=== PATIENT | male | born 1945 | race Caucasian/White ===

== ENCOUNTER 2016-07-05 21:32 | Observation (INO) | payer MEDICARE, OTHER ==
--- NOTE | 2016-07-06 01:21 | C.PDOC ---
History Of Present Illness Patient presents to the emergency room for ETOH intoxication. Patient is well known to the ED with multiple prior visits for the ETOH intoxication. Patient denies any physical complaints. Time Seen by Provider: 07/06/16 01:18 Chief Complaint (Nursing): Substance Abuse History Per: Patient History/Exam Limitations: no limitations Onset/Duration Of Symptoms: Hrs Current Symptoms Are (Timing): Still Present Suicide/Self Injury Attempted (Context): None Modifying Factor(s): Alcohol Severity: None Associated Symptoms: denies: Suicidal Thoughts, Suicidal Plan Involuntary Hold By: None Recent travel outside of the [place]: No Past Medical History Reviewed: Historical Data, Nursing Documentation, Vital Signs Vital Signs: Last Vital Signs Temp 97.9 F 07/06/16 00:37 Pulse 80 07/06/16 00:37 Resp 16 07/06/16 00:37 BP 124/86 07/06/16 00:37 Pulse Ox 99 07/06/16 04:04 - Medical History PMH: Anxiety, Asthma, Back Problems, Bipolar Disorder, Depression, Gastritis, HTN, Schizophrenia, Chronic Pain (Back Pain) Surgical History: Hernia Repair, Tonsillectomy - [facility] Procedures DETOXIFICATION SERVICES FOR SUBSTANCE ABUSE TREATMENT (12/26/15) Family History: States: Unknown Family Hx - Social History Hx Tobacco Use: No Hx Alcohol Use: Yes Hx Substance Use: No - Immunization History Hx Tetanus Toxoid Vaccination: No Hx Influenza Vaccination: No Hx Pneumococcal Vaccination: No Review Of Systems Constitutional: Positive for: Other (ETOH intoxication). Negative for: Fever, Chills Gastrointestinal: Negative for: Nausea, Vomiting, Diarrhea Physical Exam - Physical Exam Appears: Non-toxic, No Acute Distress, Other (ETOH on breath) Skin: Warm, Dry Extremity: Normal ROM, No Tenderness Neurological/Psych: Oriented x3 ED Course And Treatment O2 Sat by Pulse Oximetry: 99 Pulse Ox Interpretation: Normal Reevaluation Time: 05:36 Reassessment Condition: Improved ED OBSERVATION Discharge: Yes Date of observation admission: 07/06/16 Time of observation admission: 01:20 - Progress Note Progress Note: 07/06/16 01:20 vitals stable. no complaints 07/06/16 03:22 no complaints Disposition Counseled Patient/Family Regarding: Studies Performed, Diagnosis, Need For Followup - Disposition Disposition: HOME/ ROUTINE Disposition Time: 01:19 Condition: FAIR - Clinical Impression Clinical Impression: Alcohol abuse with intoxication - Scribe Statement The provider has reviewed the documentation as recorded by the Scribe Jim Duenas All medical record entries made by the Augustaibe were at my direction and personally dictated by me. I have reviewed the chart and agree that the record accurately reflects my personal performance of the history, physical exam, medical decision making, and the department course for this patient. I have also personally directed, reviewed, and agree with the discharge instructions and disposition. Decision To Admit - . Patient Diagnosis: Alcohol abuse with intoxication
[2016-07-06 06:31] VITALS: BP 118/78; PULSE 68; RESP 14; TEMP 97.4; O2SAT 96
== END 2016-07-06 05:37 | disposition home or self-care (01) ==
LOC: C.ER 21:32 → C.9OBSV 07-06 01:19
PROVIDERS: ADMIT Emergency Medicine; ATTEND Emergency Medicine
DX: F10.120 Alcohol abuse with intoxication, uncomplicated (principal); I10 Essential (primary) hypertension
CPT/HCPCS: 99283; G0378

== ENCOUNTER 2016-07-17 23:59 | Emergency (ER) | payer MEDICARE, OTHER ==
--- NOTE | 2016-07-18 05:19 | C.PDOC ---
History Of Present Illness 70 y/o here in ED for having too much to drink. pt denies any complaints, is asking for a sandwich. Time Seen by Provider: 07/18/16 04:49 Chief Complaint (Nursing): Substance Abuse Past Medical History Reviewed: Historical Data, Nursing Documentation, Vital Signs Vital Signs: Last Vital Signs Temp 97.3 F L 07/18/16 01:18 Pulse 81 07/18/16 01:18 Resp 20 07/18/16 01:18 BP 159/70 H 07/18/16 01:18 Pulse Ox 95 07/18/16 05:19 - Medical History PMH: Anxiety, Asthma, Back Problems, Bipolar Disorder, Depression, Gastritis, HTN, Schizophrenia, Chronic Pain (Back Pain) Other PMH: etoh abuse Surgical History: Hernia Repair, T[facility]illectomy - [facility] Procedures DETOXIFICATION SERVICES FOR SUBSTANCE ABUSE TREATMENT (12/26/15) Family History: States: Unknown Family Hx - Social History Hx Tobacco Use: No Hx Alcohol Use: Yes Hx Substance Use: No - Immunization History Hx Tetanus Toxoid Vaccination: No Hx Influenza Vaccination: No Hx Pneumococcal Vaccination: No Review Of Systems Constitutional: Negative for: Fever, Chills Cardiovascular: Negative for: Chest Pain, Palpitations Respiratory: Negative for: Cough Gastrointestinal: Negative for: Nausea, Vomiting, Abdominal Pain Musculoskeletal: Negative for: Back Pain Neurological: Negative for: Weakness, Numbness, Headache Physical Exam - Physical Exam Appears: Non-toxic, No Acute Distress, Unkempt Skin: Normal Color, Warm, Dry Head: Atraumatic, Normacephalic, No Tenderness, No Swelling, No Abrasion, No Laceration Nose: Normal Neck: Normal ROM Chest: Symmetrical, No Deformity, No Tenderness Cardiovascular: Rhythm Regular, No Murmur Respiratory: Normal Breath Sounds, No Rales, No Rhonchi, No Stridor Gastrointestinal/Abdominal: Normal Exam, Bowel Sounds, Soft, No Tenderness Neurological/Psych: Oriented x3, Normal Speech, Normal Cranial Nerves Gait: Unsteady (mildly unsteady. speech clear) ED Course And Treatment O2 Sat by Pulse Oximetry: 95 Progress Note: pt with dsteady gait, will d/c Reevaluation Time: 06:11 Disposition Counseled Patient/Family Regarding: Diagnosis, Need For Followup - Disposition Disposition: HOME/ ROUTINE Disposition Time: 06:12 Condition: IMPROVED Instructions: Alcohol Intoxication (ED) - Clinical Impression Clinical Impression: Alcohol abuse with uncomplicated intoxication
[2016-07-18 06:11] VITALS: BP 101/69; PULSE 66; RESP 16; TEMP 98.1
[2016-07-18 06:12] VITALS: O2SAT 95
== END 2016-07-18 06:28 | disposition home or self-care (01) ==
LOC: C.ER 23:59
DX: F10.120 Alcohol abuse with intoxication, uncomplicated (principal); Y90.9 Presence of alcohol in blood, level not specified

== ENCOUNTER 2016-07-20 15:40 | Observation (INO) | payer MEDICARE, OTHER ==
--- NOTE | 2016-07-20 16:12 | C.PDOC ---
History Of Present Illness <Ramón Edmonds - Last Filed: 07/21/16 01:03> <Jb Riddle - Last Filed: 07/21/16 05:51> Pt was BIBEMS due to public alcohol intoxication. He admits to drinking alcohol today. (Ramón Edmonds) History Per: Patient, EMS History/Exam Limitations: intoxication Onset/Duration Of Symptoms: Unknown (today) Current Symptoms Are (Timing): Still Present Suicide/Self Injury Attempted (Context): None Modifying Factor(s): Alcohol Severity: Moderate Associated Symptoms: denies: Suicidal Thoughts, Suicidal Plan Additional History Per: Prior Records <Ramón Edmonds - Last Filed: 07/21/16 01:03> <Jb Riddle - Last Filed: 07/21/16 05:51> Time Seen by Provider: 07/20/16 15:56 Chief Complaint (Nursing): Substance Abuse Past Medical History Reviewed: Historical Data, Nursing Documentation, Vital Signs - Medical History PMH: Anxiety, Asthma, Back Problems, Bipolar Disorder, Depression, Gastritis, HTN, Schizophrenia, Chronic Pain (Back Pain) Other PMH: Alcohol abuse Surgical History: Hernia Repair, Tonsillectomy Family History: States: Unknown Family Hx - Social History Hx Tobacco Use: No Hx Alcohol Use: Yes Hx Substance Use: No - Immunization History Hx Tetanus Toxoid Vaccination: No Hx Influenza Vaccination: No Hx Pneumococcal Vaccination: No <GreyRamón Huynh - Last Filed: 07/21/16 01:03> Vital Signs: Last Vital Signs Temp 98.2 F 07/20/16 20:00 Pulse 78 07/21/16 03:49 Resp 16 07/21/16 03:49 BP 129/76 07/21/16 03:49 Pulse Ox 98 07/21/16 03:49 - [facility] Procedures DETOXIFICATION SERVICES FOR SUBSTANCE ABUSE TREATMENT (12/26/15) Review Of Systems Review Of Systems: ROS cannot be obtained secondary to pt's inabilty to answer questions. <Ramón Edmonds - Last Filed: 07/21/16 01:03> Physical Exam - Physical Exam Appears: Non-toxic, No Acute Distress, Unkempt, Other (AOB) Skin: Normal Color, Warm, Dry, No Rash Head: Atraumatic, Normacephalic Eye(s): bilateral: PERRL, EOMI Neck: Normal ROM, No Midline Cervical Tenderness, No Step Off Deformity, Supple Chest: Symmetrical Cardiovascular: Rhythm Regular Respiratory: Normal Breath Sounds, No Accessory Muscle Use Gastrointestinal/Abdominal: Soft, No Tenderness Extremity: Normal ROM, No Deformity Neurological/Psych: Oriented x3, Normal Motor, Normal Sensation Gait: Unable To Assess <Ramón Edmonds - Last Filed: 07/21/16 01:03> ED Course And Treatment O2 Sat by Pulse Oximetry: 100 Pulse Ox Interpretation: Normal <Ramón Edmonds - Last Filed: 07/21/16 01:03> O2 Sat by Pulse Oximetry: 98 Pulse Ox Interpretation: Normal Reevaluation Time: 05:51 Reassessment Condition: Improved <Jb Riddle - Last Filed: 07/21/16 05:51> ED OBSERVATION Date of observation admission: 07/20/16 Time of observation admission: 16:12 <Ramón Edmonds - Last Filed: 07/21/16 01:03> Discharge: Yes <Jb Riddle - Last Filed: 07/21/16 05:51> - Observation admission statement Patient is being placed in observation because:: Alcohol intoxication (Ramón Edmonds) - Goals of Observation Goals of observation are:: Sobriety (Ramón Edmonds) Disposition - Disposition Disposition Time: 01:00 <Ramón Edmonds - Last Filed: 07/21/16 01:03> Counseled Patient/Family Regarding: Studies Performed, Diagnosis, Need For Followup - Disposition Disposition Time: 01:00 <Jb Riddle - Last Filed: 07/21/16 05:51> - Disposition Disposition: HOME/ ROUTINE Condition: FAIR - Clinical Impression Clinical Impression: Alcohol abuse Physician Patient Turnover Patient Signed Over To: Jb Riddle Handoff Comments: to reassess pt in the AM when sober. <Ramón Edmonds - Last Filed: 07/21/16 01:03>
[2016-07-20 20:51] VITALS: TEMP 98.2
[2016-07-20 22:22] VITALS: BP 129/76; PULSE 78
[2016-07-21 03:50] VITALS: RESP 16; O2SAT 98
== END 2016-07-21 05:51 | disposition home or self-care (01) ==
LOC: C.ER 15:40 → C.9OBSV 16:13
PROVIDERS: ADMIT Emergency Medicine; ATTEND Emergency Medicine
DX: F10.129 Alcohol abuse with intoxication, unspecified (principal); I10 Essential (primary) hypertension; F32.9 Major depressive disorder, single episode, unspecified; F20.9 Schizophrenia, unspecified; J45.909 Unspecified asthma, uncomplicated
CPT/HCPCS: 99284; G0378

== ENCOUNTER → 2016-07-23 13:53 | Emergency (ER) | payer MEDICARE, OTHER | END | disposition left against medical advice (07) | LOC: C.ER 13:53 | DX: F10.10 Alcohol abuse, uncomplicated (principal); Z02.9 Encounter for administrative examinations, unspecified ==

== ENCOUNTER 2016-07-23 19:19 | Observation (INO) | payer MEDICARE, OTHER ==
--- NOTE | 2016-07-23 20:47 | C.PDOC ---
History Of Present Illness 70 year old male presents to the ED intoxicated and requesting a place to sleep. Patient is well known to the ED for frequent visits for the same and has no physical complaints at this time. Time Seen by Provider: 07/23/16 20:46 History Per: Patient History/Exam Limitations: no limitations Onset/Duration Of Symptoms: Hrs Current Symptoms Are (Timing): Still Present Modifying Factor(s): Alcohol Recent travel outside of the [place]: No Past Medical History Reviewed: Historical Data, Nursing Documentation, Vital Signs Vital Signs: Last Vital Signs Temp 97.8 F 07/24/16 01:44 Pulse 89 07/24/16 03:47 Resp 16 07/24/16 03:47 BP 112/64 07/24/16 03:47 Pulse Ox 96 07/24/16 03:47 - Medical History PMH: Anxiety, Asthma, Back Problems, Bipolar Disorder, Depression, Gastritis, HTN, Schizophrenia, Chronic Pain (Back Pain) Surgical History: Hernia Repair, Tonsillectomy - [facility] Procedures DETOXIFICATION SERVICES FOR SUBSTANCE ABUSE TREATMENT (12/26/15) Family History: States: Unknown Family Hx - Social History Hx Tobacco Use: No Hx Alcohol Use: Yes Hx Substance Use: No - Immunization History Hx Tetanus Toxoid Vaccination: No Hx Influenza Vaccination: No Hx Pneumococcal Vaccination: No Review Of Systems Constitutional: Positive for: Other (+Intoxicated). Negative for: Fever, Chills Respiratory: Negative for: Cough Gastrointestinal: Negative for: Vomiting Physical Exam - Physical Exam Appears: Non-toxic, No Acute Distress, Other (+Intoxication +AOB) Skin: Warm, Dry Head: Atraumatic, Normacephalic Eye(s): bilateral: Normal Inspection Oral Mucosa: Moist Chest: Symmetrical Respiratory: No Accessory Muscle Use Extremity: Normal ROM Neurological/Psych: Oriented x3 ED Course And Treatment O2 Sat by Pulse Oximetry: 99 Pulse Ox Interpretation: Normal Reevaluation Time: 05:31 Reassessment Condition: Improved ED OBSERVATION Discharge: Yes Date of observation admission: 07/23/16 Time of observation admission: 20:59 - Observation admission statement Patient is being placed in observation because:: acute alcohol intoxication. - Goals of Observation Goals of observation are:: sobriety. - Progress Note Progress Note: 07/23/16 20:55 Vitals stable. patient resting 07/23/16 23:45 Patient resting, no complaints 07/24/16 02:10 vitals stable, patient continues to sleep 07/24/16 04:36 Patient resting comfortably 07/24/16 05:55 Patient is awake and sober and ready for discharge. Disposition Counseled Patient/Family Regarding: Studies Performed, Diagnosis, Need For Followup - Disposition Disposition: HOME/ ROUTINE Disposition Time: 20:47 Condition: FAIR - Clinical Impression Clinical Impression: Alcohol abuse with intoxication - Scribe Statement The provider has reviewed the documentation as recorded by the Scribe Myra Giron. Provider Attestation: All medical record entries made by the Scribe were at my direction and personally dictated by me. I have reviewed the chart and agree that the record accurately reflects my personal performance of the history, physical exam, medical decision making, and the department course for this patient. I have also personally directed, reviewed, and agree with the discharge instructions and disposition.
[2016-07-24 05:51] VITALS: BP 151/88; PULSE 92; RESP 18; TEMP 97.3; O2SAT 95
== END 2016-07-24 05:32 | disposition home or self-care (01) ==
LOC: C.ER 19:19 → C.9OBSV 21:13
PROVIDERS: ADMIT Emergency Medicine; ATTEND Emergency Medicine
DX: F10.120 Alcohol abuse with intoxication, uncomplicated (principal); F20.9 Schizophrenia, unspecified; I10 Essential (primary) hypertension; J45.909 Unspecified asthma, uncomplicated; F31.9 Bipolar disorder, unspecified
CPT/HCPCS: 99285; G0378

== ENCOUNTER 2016-07-25 11:29 | Emergency (ER) | payer MEDICARE, OTHER ==
[2016-07-25 11:44] VITALS: BMI 30.4
--- NOTE | 2016-07-25 12:27 | C.PDOC ---
History Of Present Illness 70 y/o male with hx of homelessness and etoh abuse brought to ED with cc of "i' m hungry". pt denies any physical complaints. denies drinking today, with no signs of withdrawal. pt eating sandwich and drinking juice on stretcher in no distress, speaks with clear speech. Time Seen by Provider: 07/25/16 11:50 Chief Complaint (Nursing): Substance Abuse Past Medical History Reviewed: Historical Data, Nursing Documentation, Vital Signs Vital Signs: Last Vital Signs Temp 97.9 F 07/25/16 13:24 Pulse 92 H 07/25/16 13:24 Resp 20 07/25/16 13:24 BP 138/84 07/25/16 13:24 Pulse Ox 96 07/25/16 13:24 - Medical History PMH: Anxiety, Asthma, Back Problems, Bipolar Disorder, Depression, Gastritis, HTN, Schizophrenia, Chronic Pain (Back Pain) Surgical History: Hernia Repair, Tonsillectomy - [facility] Procedures DETOXIFICATION SERVICES FOR SUBSTANCE ABUSE TREATMENT (12/26/15) Family History: States: Unknown Family Hx - Social History Hx Tobacco Use: No Hx Alcohol Use: Yes Hx Substance Use: No - Immunization History Hx Tetanus Toxoid Vaccination: No Hx Influenza Vaccination: No Hx Pneumococcal Vaccination: No Review Of Systems Constitutional: Negative for: Fever, Chills Cardiovascular: Negative for: Chest Pain, Palpitations Respiratory: Negative for: Cough, Shortness of Breath Gastrointestinal: Negative for: Nausea, Vomiting, Abdominal Pain Neurological: Negative for: Weakness, Numbness Physical Exam - Physical Exam Appears: Non-toxic, No Acute Distress, Unkempt Skin: Normal Color, Warm, Dry Head: Atraumatic, Normacephalic Neck: Normal ROM Chest: Symmetrical, No Deformity, No Tenderness Cardiovascular: Rhythm Regular, No Murmur Respiratory: Normal Breath Sounds, No Rales, No Rhonchi, No Wheezing Gastrointestinal/Abdominal: Bowel Sounds, Soft, No Tenderness Neurological/Psych: Oriented x3, Normal Speech (clear speech), Normal Cognition ED Course And Treatment O2 Sat by Pulse Oximetry: 98 Medical Decision Making Medical Decision Making: pt ambulates with steady gait and has clear speech. will discharge. Disposition Counseled Patient/Family Regarding: Diagnosis, Need For Followup - Disposition Referrals: [facility] [Outside] [facility] [Outside] Disposition: HOME/ ROUTINE Disposition Time: 13:42 Condition: STABLE Additional Instructions: Please follow up in medical clinic. Return to ER for any concerning symptoms. [facility] detox. Forms: General Discharge Instructions - Clinical Impression Clinical Impression: Homelessness
[2016-07-25 13:25] VITALS: BP 138/84; PULSE 92; RESP 20; TEMP 97.9
[2016-07-25 13:44] VITALS: O2SAT 98
== END 2016-07-25 14:02 | disposition home or self-care (01) ==
LOC: C.ER 11:29
DX: Z04.8 Encounter for examination and observation for other specified reasons (principal); Z59.0 Homelessness

== ENCOUNTER 2016-07-26 23:40 | Observation (INO) | payer MEDICARE, OTHER ==
[2016-07-26 23:41] VITALS: BMI 30.4
--- NOTE | 2016-07-26 23:45 | C.PDOC ---
History Of Present Illness 70 year old male presents to the ED via EMS for public intoxication. Patient has a history of alcohol abuse and is well known to the ED for frequent visits for the same. Time Seen by Provider: 07/26/16 23:43 History Per: Patient, EMS History/Exam Limitations: no limitations Onset/Duration Of Symptoms: Hrs Current Symptoms Are (Timing): Still Present Suicide/Self Injury Attempted (Context): None Modifying Factor(s): Alcohol Past Medical History Reviewed: Historical Data, Nursing Documentation, Vital Signs Vital Signs: Last Vital Signs Temp 98 F 07/27/16 05:08 Pulse 81 07/27/16 05:08 Resp 19 07/27/16 05:08 BP 134/81 07/27/16 05:08 Pulse Ox 94 L 07/27/16 05:08 - Medical History PMH: Anxiety, Asthma, Back Problems, Bipolar Disorder, Depression, Gastritis, HTN, Schizophrenia, Chronic Pain (Back Pain) Surgical History: Hernia Repair, [facility] [place] [facility] Procedures DETOXIFICATION SERVICES FOR SUBSTANCE ABUSE TREATMENT (12/26/15) Family History: States: Unknown Family Hx - Social History Hx Tobacco Use: No Hx Alcohol Use: Yes Hx Substance Use: No - Immunization History Hx Tetanus Toxoid Vaccination: No Hx Influenza Vaccination: No Hx Pneumococcal Vaccination: No Review Of Systems Constitutional: Positive for: Other (+Intoxication). Negative for: Fever, Chills Physical Exam - Physical Exam Appears: Non-toxic, No Acute Distress, Other (+AOB +Intoxicated) Skin: Warm, Dry Head: Atraumatic, Normacephalic Oral Mucosa: Moist Neck: Supple Chest: Symmetrical Respiratory: No Accessory Muscle Use Extremity: Normal ROM ED Course And Treatment O2 Sat by Pulse Oximetry: 98 (Room air) Pulse Ox Interpretation: Normal Reevaluation Time: 04:35 Reassessment Condition: Improved ED OBSERVATION Discharge: Yes Date of observation admission: 07/26/16 Time of observation admission: 23:44 - Observation admission statement Patient is being placed in observation because:: acute alcohol intoxication - Goals of Observation Goals of observation are:: sobriety - Progress Note Progress Note: 07/26/16 23:44 vitals stable, no complaints 07/27/16 01:50 vitals stable, no complaints 07/27/16 03:50 vitals stable Disposition Counseled Patient/Family Regarding: Studies Performed, Diagnosis, Need For Followup - Disposition Disposition: HOME/ ROUTINE Disposition Time: 01:00 Condition: FAIR - Clinical Impression Clinical Impression: Alcoholism /alcohol abuse - Scribe Statement The provider has reviewed the documentation as recorded by the Scribe Myra Giron. Provider Attestation: All medical record entries made by the Scribe were at my direction and personally dictated by me. I have reviewed the chart and agree that the record accurately reflects my personal performance of the history, physical exam, medical decision making, and the department course for this patient. I have also personally directed, reviewed, and agree with the discharge instructions and disposition.
[2016-07-27 05:08] VITALS: BP 134/81; PULSE 81; RESP 19; TEMP 98
[2016-07-27 05:41] VITALS: O2SAT 98
== END 2016-07-27 05:41 | disposition home or self-care (01) ==
LOC: C.ER 23:40 → C.9OBSV 23:46
PROVIDERS: ADMIT Emergency Medicine; ATTEND Emergency Medicine
DX: F10.229 Alcohol dependence with intoxication, unspecified (principal); F20.9 Schizophrenia, unspecified; F31.9 Bipolar disorder, unspecified; I10 Essential (primary) hypertension; J45.909 Unspecified asthma, uncomplicated; M54.9 Dorsalgia, unspecified; F41.9 Anxiety disorder, unspecified
CPT/HCPCS: 82948; 99284; G0378

== ENCOUNTER 2016-07-28 10:37 | Observation (INO) | payer MEDICARE, OTHER ==
[2016-07-28 10:38] VITALS: BMI 30.4
--- NOTE | 2016-07-28 11:32 | C.PDOC ---
History Of Present Illness Patient is a 70 y/o male that is brought to the ED by BLS for public intoxication. Patient is well known to ED staff for multiple prior visits for alcohol intoxication. Otherwise, pt denies any physical complaints at this time. Time Seen by Provider: 07/28/16 10:59 Chief Complaint (Nursing): Substance Abuse History Per: Patient History/Exam Limitations: intoxication Onset/Duration Of Symptoms: Gradual Current Symptoms Are (Timing): Still Present Suicide/Self Injury Attempted (Context): None Modifying Factor(s): Alcohol Severity: None Pain Scale Rating Of: 0 Involuntary Hold By: None Recent travel outside of the [place]: No Additional History Per: Prior Records Past Medical History Reviewed: Historical Data, Nursing Documentation, Vital Signs Vital Signs: Last Vital Signs Temp 98.3 F 07/28/16 14:46 Pulse 88 07/28/16 14:46 Resp 20 07/28/16 14:46 BP 155/105 H 07/28/16 14:46 Pulse Ox 100 07/28/16 14:46 - Medical History PMH: Anxiety, Asthma, Back Problems, Bipolar Disorder, Depression, Gastritis, HTN, Schizophrenia, Chronic Pain (Back Pain) Surgical History: Hernia Repair, Tonsillectomy - [facility] Procedures DETOXIFICATION SERVICES FOR SUBSTANCE ABUSE TREATMENT (12/26/15) Family History: States: No Known Family Hx - Social History Hx Tobacco Use: No Hx Alcohol Use: Yes Hx Substance Use: No - Immunization History Hx Tetanus Toxoid Vaccination: No Hx Influenza Vaccination: No Hx Pneumococcal Vaccination: No Review Of Systems Except As Marked, All Systems Reviewed And Found Negative. Cardiovascular: Negative for: Chest Pain Respiratory: Negative for: Shortness of Breath Gastrointestinal: Negative for: Nausea, Vomiting, Abdominal Pain Physical Exam - Physical Exam Additional Physical Exam Comments: Constitutional: No acute distress. EtOH on breath Head: Normocephalic. Atraumatic. Eyes: PERRL. ENT: Moist mucous membranes. Neck: Supple. Cardiovascular: Regular rate. Radial pulse 2+ bilaterally. Chest: No tenderness. Respiratory: Clear to auscultation bilaterally. GI: Soft. Nontender. Nondistended. Back: No CVA tenderness. Musculoskeletal: No tenderness or swelling of extremities. Skin: No rash. Neurologic: Alert, no focal deficit. ED Course And Treatment O2 Sat by Pulse Oximetry: 95 ED OBSERVATION Discharge: Yes Date of observation admission: 07/28/16 Time of observation admission: 11:07 - Observation admission statement Patient is being placed in observation because:: alcohol intoxication - Goals of Observation Goals of observation are:: sobriety - Progress Note Progress Note: 1300 Patient sleeping. 1456 Patient is awake, alert, steady gait. Disposition - Disposition Disposition: HOME/ ROUTINE Disposition Time: 14:56 Condition: STABLE - Clinical Impression Clinical Impression: Alcohol abuse with intoxication - Scribe Statement The provider has reviewed the documentation as recorded by the Omar Leiva Provider Attestation: All medical record entries made by the Omar were at my direction and personally dictated by me. I have reviewed the chart and agree that the record accurately reflects my personal performance of the history, physical exam, medical decision making, and the department course for this patient. I have also personally directed, reviewed, and agree with the discharge instructions and disposition.
[2016-07-28 14:46] VITALS: PULSE 88; RESP 20; TEMP 98.3
[2016-07-28 14:52] VITALS: BP 155/105
[2016-07-28 14:59] VITALS: O2SAT 95
== END 2016-07-28 14:59 | disposition home or self-care (01) ==
LOC: C.ER 10:37 → C.9OBSV 11:07
PROVIDERS: ADMIT Student in an Organized Health Care Education/Training Program; ATTEND Student in an Organized Health Care Education/Training Program
DX: F10.229 Alcohol dependence with intoxication, unspecified (principal); J45.909 Unspecified asthma, uncomplicated; I10 Essential (primary) hypertension; F31.9 Bipolar disorder, unspecified; F20.9 Schizophrenia, unspecified; F41.8 Other specified anxiety disorders
CPT/HCPCS: 82948; 99283; G0378

== ENCOUNTER 2016-07-29 16:56 | Observation (INO) | payer MEDICARE, OTHER ==
[2016-07-29 16:56] VITALS: BMI 30.4
--- NOTE | 2016-07-29 18:00 | C.PDOC ---
History Of Present Illness 70 year old male presents to the ED via EMS for public intoxication. Patient is well known to the ED for frequent visits for the same and has no physical complaints at this time. Time Seen by Provider: 07/29/16 17:21 Chief Complaint (Nursing): Substance Abuse History Per: Patient, EMS History/Exam Limitations: no limitations Onset/Duration Of Symptoms: Hrs Current Symptoms Are (Timing): Still Present Suicide/Self Injury Attempted (Context): None Modifying Factor(s): Alcohol Severity: Mild Past Medical History Reviewed: Historical Data, Nursing Documentation, Vital Signs Vital Signs: Last Vital Signs Temp 97.8 F 07/29/16 17:05 Pulse 98 H 07/29/16 17:05 Resp 20 07/29/16 17:05 BP 119/69 07/29/16 17:05 Pulse Ox 99 07/29/16 17:59 - Medical History PMH: Anxiety, Asthma, Back Problems, Bipolar Disorder, Depression, Gastritis, HTN, Schizophrenia, Chronic Pain (Back Pain) Surgical History: Hernia Repair, Tonsillectomy - [facility] Procedures DETOXIFICATION SERVICES FOR SUBSTANCE ABUSE TREATMENT (12/26/15) Family History: States: Unknown Family Hx - Social History Hx Tobacco Use: No Hx Alcohol Use: Yes Hx Substance Use: No - Immunization History Hx Tetanus Toxoid Vaccination: No Hx Influenza Vaccination: No Hx Pneumococcal Vaccination: No Review Of Systems Except As Marked, All Systems Reviewed And Found Negative. Constitutional: Positive for: Other (+Intoxication). Negative for: Fever, Chills Cardiovascular: Negative for: Chest Pain, Palpitations Respiratory: Negative for: Shortness of Breath Physical Exam - Physical Exam Appears: Non-toxic, No Acute Distress, Other (+AOB + Intoxicated) Skin: Normal Color, Warm, Dry Head: Atraumatic, Normacephalic Eye(s): bilateral: Normal Inspection Oral Mucosa: Moist Chest: Symmetrical Respiratory: No Accessory Muscle Use Extremity: Normal ROM Neurological/Psych: Oriented x3 ED Course And Treatment O2 Sat by Pulse Oximetry: 99 (Room air) Pulse Ox Interpretation: Normal Disposition - Disposition Disposition Time: 19:00 Condition: GOOD - Clinical Impression Clinical Impression: Alcohol abuse - Scribe Statement The provider has reviewed the documentation as recorded by the Scribe Myra Giron. Provider Attestation: All medical record entries made by the Scribe were at my direction and personally dictated by me. I have reviewed the chart and agree that the record accurately reflects my personal performance of the history, physical exam, medical decision making, and the department course for this patient. I have also personally directed, reviewed, and agree with the discharge instructions and disposition. Physician Patient Turnover Patient Signed Over To: Charlee Bullock Handoff Comments: dispo when sober
[2016-07-29 19:29] VITALS: RESP 18
[2016-07-30 06:11] VITALS: BP 136/81; PULSE 90; TEMP 98.4; O2SAT 97
== END 2016-07-30 06:03 | disposition home or self-care (01) ==
LOC: C.ER 16:56 → C.9OBSV 17:22
PROVIDERS: ADMIT Internal Medicine; ATTEND Internal Medicine
DX: F10.10 Alcohol abuse, uncomplicated (principal); F20.9 Schizophrenia, unspecified; I10 Essential (primary) hypertension
CPT/HCPCS: 82948; 99285; G0378

== ENCOUNTER 2016-07-31 12:45 | Observation (INO) | payer MEDICARE, OTHER ==
[2016-07-31 12:45] VITALS: BMI 30.4
[2016-07-31 12:54] VITALS: RESP 18
--- NOTE | 2016-07-31 13:47 | C.PDOC ---
History Of Present Illness 70 y/o male brought to ED by EMS for public intoxication. Patient is well known to ER staff with multiple prior visits for EtOH intoxication. Denies any complaints on arrival. Patient is requesting a sandwich. Denies SI/HI, trauma, or injury. Time Seen by Provider: 07/31/16 13:16 Chief Complaint (Nursing): Substance Abuse History Per: Patient History/Exam Limitations: no limitations Current Symptoms Are (Timing): Still Present Modifying Factor(s): Alcohol Associated Symptoms: denies: Agitation, Suicidal Thoughts, Suicidal Plan Recent travel outside of the [place]: No Past Medical History Reviewed: Historical Data, Nursing Documentation, Vital Signs Vital Signs: Last Vital Signs Temp 98.2 F 07/31/16 17:49 Pulse 86 07/31/16 17:49 Resp 18 07/31/16 17:49 BP 147/88 07/31/16 17:49 Pulse Ox 98 07/31/16 20:47 - Medical History PMH: Anxiety, Asthma, Back Problems, Bipolar Disorder, Depression, Gastritis, HTN, Schizophrenia, Chronic Pain (Back Pain) Surgical History: Hernia Repair, Tonsillectomy - [facility] Procedures DETOXIFICATION SERVICES FOR SUBSTANCE ABUSE TREATMENT (12/26/15) Family History: States: Unknown Family Hx - Social History Hx Tobacco Use: No Hx Alcohol Use: Yes Hx Substance Use: No - Immunization History Hx Tetanus Toxoid Vaccination: No Hx Influenza Vaccination: No Hx Pneumococcal Vaccination: No Review Of Systems Except As Marked, All Systems Reviewed And Found Negative. Constitutional: Negative for: Fever, Chills Cardiovascular: Negative for: Chest Pain Respiratory: Negative for: Shortness of Breath Gastrointestinal: Negative for: Vomiting, Abdominal Pain Skin: Negative for: Rash Physical Exam - Physical Exam Appears: Non-toxic, No Acute Distress Skin: Warm, Dry Head: Atraumatic, Normacephalic Chest: Symmetrical Cardiovascular: Rhythm Regular Respiratory: Normal Breath Sounds, No Rales, No Rhonchi, No Wheezing Gastrointestinal/Abdominal: Soft, No Tenderness Back: Normal Inspection Extremity: Normal ROM, Capillary Refill (< 2 sec. ) Extremity: Bilateral: Atraumatic Neurological/Psych: Oriented x3 ED Course And Treatment O2 Sat by Pulse Oximetry: 98 ED OBSERVATION Discharge: Yes Date of observation admission: 07/31/16 Time of observation admission: 13:52 - Observation admission statement Patient is being placed in observation because:: alcohol intoxication - Goals of Observation Goals of observation are:: sobriety - Progress Note Progress Note: 07/31/16 20:45 Patient no longer in ED. eloped. Disposition - Disposition Disposition: ELOPEMENT - ER ONLY Disposition Time: 20:48 Condition: IMPROVED - Clinical Impression Clinical Impression: Alcohol abuse with intoxication - Scribe Statement The provider has reviewed the documentation as recorded by the Omar Green Provider Scribe Attestation: All medical record entries made by the Omar were at my direction and personally dictated by me. I have reviewed the chart and agree that the record accurately reflects my personal performance of the history, physical exam, medical decision making, and the department course for this patient. I have also personally directed, reviewed, and agree with the discharge instructions and disposition.
[2016-07-31 17:50] VITALS: BP 147/88; PULSE 86; TEMP 98.2
[2016-07-31 20:47] VITALS: O2SAT 98
== END 2016-07-31 20:48 | disposition home or self-care (01) ==
LOC: C.ER 12:45 → C.9OBSV 13:52
PROVIDERS: ADMIT Emergency Medicine; ATTEND Emergency Medicine
DX: F10.129 Alcohol abuse with intoxication, unspecified (principal); I10 Essential (primary) hypertension; J45.909 Unspecified asthma, uncomplicated; G89.29 Other chronic pain; M54.9 Dorsalgia, unspecified; F20.9 Schizophrenia, unspecified; F31.9 Bipolar disorder, unspecified; F41.9 Anxiety disorder, unspecified; Z98.890 Other specified postprocedural states; Z90.89 Acquired absence of other organs

== ENCOUNTER 2016-08-01 16:06 | Observation (INO) | payer MEDICARE, OTHER ==
[2016-08-01 16:07] VITALS: BMI 30.4
--- NOTE | 2016-08-01 17:05 | C.PDOC ---
History Of Present Illness 70 yr old male presents to the ER intoxicated. Patient is very well known to the ED with multiple prior visit to the ED for same complaints. ROS is limited. Patient denies chest pain, suicidal or homicidal ideation. Time Seen by Provider: 08/01/16 16:12 Chief Complaint (Nursing): Substance Abuse History Per: EMS History/Exam Limitations: no limitations Modifying Factor(s): Alcohol Past Medical History Reviewed: Historical Data, Nursing Documentation, Vital Signs Vital Signs: Last Vital Signs Temp 97.6 F 08/01/16 22:27 Pulse 67 08/01/16 22:27 Resp 16 08/01/16 22:27 BP 134/86 08/01/16 22:27 Pulse Ox 96 08/01/16 22:27 - Medical History PMH: Anxiety, Asthma, Back Problems, Bipolar Disorder, Depression, Gastritis, HTN, Schizophrenia, Chronic Pain (Back Pain) Surgical History: Hernia Repair, Tonsillectomy - [facility] Procedures DETOXIFICATION SERVICES FOR SUBSTANCE ABUSE TREATMENT (12/26/15) Family History: States: No Known Family Hx - Social History Hx Tobacco Use: No Hx Alcohol Use: Yes Hx Substance Use: No - Immunization History Hx Tetanus Toxoid Vaccination: No Hx Influenza Vaccination: No Hx Pneumococcal Vaccination: No Review Of Systems Except As Marked, All Systems Reviewed And Found Negative. Cardiovascular: Negative for: Chest Pain Psych: Negative for: Suicidal ideation Physical Exam - Physical Exam Appears: Well, Non-toxic, No Acute Distress Skin: Warm, Dry, No Rash Head: Atraumatic, Normacephalic Chest: Symmetrical, No Tenderness Cardiovascular: Rhythm Regular, No Murmur Respiratory: Normal Breath Sounds, No Rales, No Rhonchi, No Wheezing Extremity: Normal ROM, No Swelling Neurological/Psych: Oriented x3, Normal Speech ED Course And Treatment O2 Sat by Pulse Oximetry: 97 ED OBSERVATION Date of observation admission: 08/01/16 Time of observation admission: 19:18 - Observation admission statement Patient is being placed in observation because:: ETOH Intoxication - Goals of Observation Goals of observation are:: Sobriety Disposition - Disposition Disposition: HOME/ ROUTINE Disposition Time: 05:00 Condition: GOOD - Clinical Impression Clinical Impression: Alcohol abuse with intoxication - PA / CONDUCTOR FREIGHT / Resident Statement MD/DO has reviewed & agrees with the documentation as recorded. - Scribe Statement The provider has reviewed the documentation as recorded by the Scribe Juani Gonzalez All medical record entries made by the Scribe were at my direction and personally dictated by me. I have reviewed the chart and agree that the record accurately reflects my personal performance of the history, physical exam, medical decision making, and the department course for this patient. I have also personally directed, reviewed, and agree with the discharge instructions and disposition.
[2016-08-01 22:29] VITALS: BP 134/86; PULSE 67; RESP 16; TEMP 97.6
[2016-08-03 13:47] VITALS: O2SAT 97
== END 2016-08-02 00:07 | disposition home or self-care (01) ==
LOC: C.ER 16:06 → C.9OBSV 18:00
PROVIDERS: ADMIT Emergency Medicine; ATTEND Emergency Medicine
DX: F10.129 Alcohol abuse with intoxication, unspecified (principal); J45.909 Unspecified asthma, uncomplicated; I10 Essential (primary) hypertension; F31.9 Bipolar disorder, unspecified; F20.9 Schizophrenia, unspecified; M54.9 Dorsalgia, unspecified; K29.70 Gastritis, unspecified, without bleeding; G89.29 Other chronic pain; F32.9 Major depressive disorder, single episode, unspecified; F41.9 Anxiety disorder, unspecified
CPT/HCPCS: 82948; 99285; G0378

== ENCOUNTER 2016-08-02 14:10 | Observation (INO) | payer MEDICARE, OTHER ==
[2016-08-02 14:24] VITALS: BMI 25.1
--- NOTE | 2016-08-02 16:16 | C.PDOC ---
History Of Present Illness 70 y/o male is brought into the ED by ambulance for evaluation after the patient was found walking down the street drinking two 40's. Patient admits to drinking alcohol today. Denies any suicidal ideation, homicidal ideation, pain or injury. Patient is well known to the [facility] ED for multiple visits for alcohol intoxication. Time Seen by Provider: 08/02/16 14:23 Chief Complaint (Nursing): Substance Abuse History Per: Patient History/Exam Limitations: no limitations Onset/Duration Of Symptoms: Hrs, Persistent Current Symptoms Are (Timing): Still Present Suicide/Self Injury Attempted (Context): None Modifying Factor(s): Alcohol Recent travel outside of the [place]: No Past Medical History Reviewed: Historical Data, Nursing Documentation, Vital Signs Vital Signs: Last Vital Signs Temp 98.8 F 08/02/16 18:41 Pulse 74 08/02/16 18:41 Resp 20 08/02/16 18:41 BP 134/87 08/02/16 18:41 Pulse Ox 99 08/02/16 18:41 - Medical History PMH: Anxiety, Asthma, Back Problems, Bipolar Disorder, Depression, Gastritis, HTN, Schizophrenia, Chronic Pain (Back Pain) Surgical History: Hernia Repair, Tonsillectomy - [facility] Procedures DETOXIFICATION SERVICES FOR SUBSTANCE ABUSE TREATMENT (12/26/15) Family History: States: Unknown Family Hx - Social History Hx Tobacco Use: No Hx Alcohol Use: Yes Hx Substance Use: No - Immunization History Hx Tetanus Toxoid Vaccination: No Hx Influenza Vaccination: No Hx Pneumococcal Vaccination: No Review Of Systems Except As Marked, All Systems Reviewed And Found Negative. Constitutional: Positive for: Other (alcohol intoxication) Musculoskeletal: Negative for: Other (pain or injury) Psych: Negative for: Suicidal ideation Physical Exam - Physical Exam Appears: Non-toxic, No Acute Distress, Other (disheveled; foul smelling) Skin: Normal Color, Warm, Dry Head: Atraumatic, Normacephalic Neck: Normal ROM Chest: Symmetrical Cardiovascular: Rhythm Regular Respiratory: Normal Breath Sounds, No Rales, No Rhonchi, No Wheezing Gastrointestinal/Abdominal: Normal Exam, Soft, No Tenderness Back: Normal Inspection, No CVA Tenderness Extremity: Normal ROM, No Swelling Extremity: Bilateral: Atraumatic Neurological/Psych: Oriented x3, Normal Speech, Normal Cognition ED Course And Treatment O2 Sat by Pulse Oximetry: 97 (ra) Pulse Ox Interpretation: Normal Reevaluation Time: 19:24 Reassessment Condition: Improved (STABLE GAIT) Medical Decision Making Medical Decision Making: Patient placed under ED observation pending sobriety. Disposition Doctor Will See Patient In The: Office Counseled Patient/Family Regarding: Studies Performed, Diagnosis - Disposition Disposition: HOME/ ROUTINE Disposition Time: 19:24 Condition: GOOD - Clinical Impression Clinical Impression: Alcohol abuse with uncomplicated intoxication - Scribe Statement The provider has reviewed the documentation as recorded by the Scribe (Katrina Moya) Provider Attestation: All medical record entries made by the Scribe were at my direction and personally dictated by me. I have reviewed the chart and agree that the record accurately reflects my personal performance of the history, physical exam, medical decision making, and the department course for this patient. I have also personally directed, reviewed, and agree with the discharge instructions and disposition.
[2016-08-02 20:30] VITALS: BP 150/90; PULSE 92; RESP 18; TEMP 98.4; O2SAT 95
== END 2016-08-02 19:23 | disposition home or self-care (01) ==
LOC: C.ER 14:10 → C.9OBSV 14:24
PROVIDERS: ADMIT Internal Medicine; ATTEND Internal Medicine
DX: F10.120 Alcohol abuse with intoxication, uncomplicated (principal); J45.909 Unspecified asthma, uncomplicated; I10 Essential (primary) hypertension; F20.9 Schizophrenia, unspecified; M54.9 Dorsalgia, unspecified; K29.70 Gastritis, unspecified, without bleeding; F32.9 Major depressive disorder, single episode, unspecified; F41.9 Anxiety disorder, unspecified
CPT/HCPCS: 82948; 99283; G0378

== ENCOUNTER 2016-08-03 17:32 | Observation (INO) | payer MEDICARE, OTHER ==
[2016-08-03 17:33] VITALS: BMI 25.1
--- NOTE | 2016-08-03 17:54 | C.PDOC ---
History Of Present Illness 70-year-old male, brought into the ED by ambulance with complaints of public intoxication. Patient admits to drinking alcohol today. Denies any suicidal ideation, homicidal ideation, pain or injury. Patient is well known to the [facility] ED for multiple visits for alcohol intoxication. Last visit yesterday. Time Seen by Provider: 08/03/16 17:49 Chief Complaint (Nursing): Substance Abuse Past Medical History Reviewed: Historical Data, Nursing Documentation, Vital Signs Vital Signs: Last Vital Signs Temp 98.2 F 08/03/16 21:44 Pulse 67 08/03/16 21:44 Resp 18 08/03/16 21:44 BP 156/80 H 08/03/16 21:44 Pulse Ox 99 08/03/16 21:44 - Medical History PMH: Anxiety, Asthma, Back Problems, Bipolar Disorder, Depression, Gastritis, HTN, Schizophrenia, Chronic Pain (Back Pain) Surgical History: Hernia Repair, Tonsillectomy - [facility] Procedures DETOXIFICATION SERVICES FOR SUBSTANCE ABUSE TREATMENT (12/26/15) Family History: States: Unknown Family Hx - Social History Hx Tobacco Use: No Hx Alcohol Use: Yes Hx Substance Use: No - Immunization History Hx Tetanus Toxoid Vaccination: No Hx Influenza Vaccination: No Hx Pneumococcal Vaccination: No Review Of Systems Cardiovascular: Negative for: Chest Pain Respiratory: Negative for: Shortness of Breath Gastrointestinal: Negative for: Vomiting Psych: Negative for: Depression, Suicidal ideation Physical Exam - Physical Exam Appears: Unkempt, Other (ETOH ON BREATH. SLURRED SPEECH SECONDARY TO INTOXICATION) Neck: Normal ROM Respiratory: No Accessory Muscle Use Extremity: Normal ROM ED Course And Treatment O2 Sat by Pulse Oximetry: 100 ED OBSERVATION Date of observation admission: 08/03/16 Time of observation admission: 17:52 - Observation admission statement Patient is being placed in observation because:: Lack of community services - Goals of Observation Goals of observation are:: Screen public from view of the issue - Progress Note Progress Note: 08/03/16 17:53 Pt remained stable in the ED Progressively more sober 08/03/16 23:29 Pt continued to sleep on and off, but failed attempt to ambulate will need few more hours Disposition - Disposition Disposition Time: 23:33 Condition: FAIR - Clinical Impression Clinical Impression: Drug dependence, Homelessness - Scribe Statement The provider has reviewed the documentation as recorded by the Omar Bañuelos All medical record entries made by the Scribe were at my direction and personally dictated by me. I have reviewed the chart and agree that the record accurately reflects my personal performance of the history, physical exam, medical decision making, and the department course for this patient. I have also personally directed, reviewed, and agree with the discharge instructions and disposition. Physician Patient Turnover Patient Signed Over To: Darren Mckeon Handoff Comments: Pending sobriety
[2016-08-04 06:26] VITALS: BP 139/76; PULSE 78; RESP 18; TEMP 98.4; O2SAT 100
== END 2016-08-04 06:27 | disposition home or self-care (01) ==
LOC: C.ER 17:32 → C.9OBSV 17:49
PROVIDERS: ADMIT Emergency Medicine; ATTEND Emergency Medicine
DX: F10.129 Alcohol abuse with intoxication, unspecified (principal); F41.9 Anxiety disorder, unspecified; J45.909 Unspecified asthma, uncomplicated; F31.9 Bipolar disorder, unspecified; I10 Essential (primary) hypertension; F20.9 Schizophrenia, unspecified; G89.29 Other chronic pain; M54.9 Dorsalgia, unspecified; Z59.0 Homelessness; F19.20 Other psychoactive substance dependence, uncomplicated; F19.10 Other psychoactive substance abuse, uncomplicated
CPT/HCPCS: 82948; 99285; G0378

== ENCOUNTER 2016-08-04 14:33 | Observation (INO) | payer MEDICARE, OTHER ==
[2016-08-04 14:33] VITALS: BMI 25.1
[2016-08-04 14:39] VITALS: RESP 18; O2SAT 96
--- NOTE | 2016-08-04 14:56 | C.PDOC ---
History Of Present Illness Patient is a 70 y/o male that is brought to the ED by BLS for public intoxication. Pt is well known to this ED for multiple prior visits for alcohol intoxication. Pt denies any complaints at this time. Time Seen by Provider: 08/04/16 14:48 Chief Complaint (Nursing): Substance Abuse History Per: Patient History/Exam Limitations: no limitations Suicide/Self Injury Attempted (Context): None Modifying Factor(s): Alcohol Recent travel outside of the [place]: No Additional History Per: Prior Records Past Medical History Reviewed: Historical Data, Nursing Documentation, Vital Signs Vital Signs: Last Vital Signs Temp 98.9 F 08/04/16 14:35 Pulse 110 H 08/04/16 14:35 Resp 18 08/04/16 14:35 BP 112/76 08/04/16 14:35 Pulse Ox 96 08/04/16 15:47 - Medical History PMH: Anxiety, Asthma, Back Problems, Bipolar Disorder, Depression, Gastritis, HTN, Schizophrenia, Chronic Pain (Back Pain) Surgical History: Hernia Repair, Tonsillectomy - [facility] Procedures DETOXIFICATION SERVICES FOR SUBSTANCE ABUSE TREATMENT (12/26/15) Family History: States: Unknown Family Hx - Social History Hx Tobacco Use: No Hx Alcohol Use: Yes Hx Substance Use: No Review Of Systems Except As Marked, All Systems Reviewed And Found Negative. Constitutional: Negative for: Fever, Chills Cardiovascular: Negative for: Chest Pain, Palpitations Respiratory: Negative for: Cough, Shortness of Breath Gastrointestinal: Negative for: Nausea, Vomiting, Abdominal Pain, Diarrhea Neurological: Negative for: Weakness, Numbness, Headache Physical Exam - Physical Exam Appears: Non-toxic, No Acute Distress, Other (disheveled; EtOH on breath) Skin: Normal Color, Warm, Dry Head: Atraumatic, Normacephalic Neck: Supple Chest: Symmetrical Cardiovascular: Rhythm Regular Respiratory: Normal Breath Sounds, No Rales, No Rhonchi Gastrointestinal/Abdominal: Soft, No Tenderness Neurological/Psych: Oriented x3 ED Course And Treatment O2 Sat by Pulse Oximetry: 96 (on RA) Pulse Ox Interpretation: Normal Progress Note: On reassessment, patient is resting comfortably, with no acute distress. ED OBSERVATION Date of observation admission: 08/04/16 Time of observation admission: 14:55 - Observation admission statement Patient is being placed in observation because:: Public Intoxication and lack of community services - Goals of Observation Goals of observation are:: Remove from public view, sober up - Progress Note Progress Note: 08/04/16 14:56 vs stable sleeping 08/05/16 00:45 Improved but still unsteady gait Disposition - Disposition Disposition: HOME/ ROUTINE Disposition Time: 00:46 Condition: GOOD - Clinical Impression Clinical Impression: Alcohol abuse with intoxication, Homelessness - Scribe Statement The provider has reviewed the documentation as recorded by the Omar Leiva Provider Attestation: All medical record entries made by the Omar were at my direction and personally dictated by me. I have reviewed the chart and agree that the record accurately reflects my personal performance of the history, physical exam, medical decision making, and the department course for this patient. I have also personally directed, reviewed, and agree with the discharge instructions and disposition. Physician Patient Turnover Patient Signed Over To: Jb Riddle Handoff Comments: D/C in am
[2016-08-05 03:11] VITALS: BP 98/64; PULSE 98; TEMP 98.6
== END 2016-08-05 04:54 | disposition home or self-care (01) ==
LOC: C.ER 14:33 → C.9OBSV 14:54
PROVIDERS: ADMIT Emergency Medicine; ATTEND Emergency Medicine
DX: F10.129 Alcohol abuse with intoxication, unspecified (principal); F31.9 Bipolar disorder, unspecified; Z59.0 Homelessness
CPT/HCPCS: G0378 ×2

== ENCOUNTER 2016-08-05 22:09 | Emergency (ER) | payer MEDICARE, OTHER ==
[2016-08-05 22:10] VITALS: BMI 25.1
[2016-08-05 23:19] VITALS: O2SAT 98
--- NOTE | 2016-08-06 00:33 | C.PDOC ---
History Of Present Illness Patient is brought to the ED by ambulance for acute alcohol intoxication. Patient is well known in the ED for intoxication. Patient admits to drinking alcohol prior to arrival. Patient denies chest pain, vomiting, shortness of breath, suicidal/homicidal ideation, or any other complaints at this time. Time Seen by Provider: 08/06/16 00:32 Chief Complaint (Nursing): Substance Abuse History Per: Patient History/Exam Limitations: intoxication Onset/Duration Of Symptoms: Other Current Symptoms Are (Timing): Still Present Suicide/Self Injury Attempted (Context): None Modifying Factor(s): Alcohol Severity: None Pain Scale Rating Of: 0 Associated Symptoms: Other Recent travel outside of the [place]: No Additional History Per: EMS, Prior Records Past Medical History Reviewed: Historical Data, Nursing Documentation, Vital Signs Vital Signs: Last Vital Signs Temp 97.4 F L 08/05/16 23:17 Pulse 80 08/05/16 23:17 Resp 18 08/05/16 23:17 BP 158/107 H 08/05/16 23:17 Pulse Ox 98 08/06/16 01:11 - Medical History PMH: Anxiety, Asthma, Back Problems, Bipolar Disorder, Depression, Gastritis, HTN, Schizophrenia, Chronic Pain (Back Pain) Surgical History: Hernia Repair, Tonsillectomy - [facility] Procedures DETOXIFICATION SERVICES FOR SUBSTANCE ABUSE TREATMENT (12/26/15) Family History: States: Unknown Family Hx - Social History Hx Tobacco Use: No Hx Alcohol Use: Yes Hx Substance Use: No - Immunization History Hx Tetanus Toxoid Vaccination: No Hx Influenza Vaccination: No Hx Pneumococcal Vaccination: No Review Of Systems Constitutional: Positive for: Other (intoxication) Cardiovascular: Negative for: Chest Pain Respiratory: Negative for: Shortness of Breath Gastrointestinal: Negative for: Vomiting Psych: Negative for: Suicidal ideation Physical Exam - Physical Exam Appears: Non-toxic, No Acute Distress, Other (intoxicated) Skin: Warm, Dry Head: Atraumatic, Normacephalic Neck: Normal ROM, Supple Chest: Symmetrical Cardiovascular: Rhythm Regular Respiratory: No Accessory Muscle Use Back: No CVA Tenderness Extremity: Bilateral: Atraumatic ED Course And Treatment O2 Sat by Pulse Oximetry: 98 (RA) Pulse Ox Interpretation: Normal Reevaluation Time: 04:50 Reassessment Condition: Improved ED OBSERVATION Discharge: Yes Date of observation admission: 08/06/16 Time of observation admission: 00:33 - Observation admission statement Patient is being placed in observation because:: acute alcohol intoxication - Goals of Observation Goals of observation are:: sobriety - Progress Note Progress Note: 08/06/16 00:34 vitals stable 08/06/16 02:34 no complaints 08/06/16 04:34 arousable Disposition Counseled Patient/Family Regarding: Studies Performed, Diagnosis, Need For Followup - Disposition Referrals: [facility] at [facility] [Outside] Disposition: HOME/ ROUTINE Disposition Time: 00:32 Condition: FAIR Instructions: Alcohol Intoxication (DC) - Clinical Impression Clinical Impression: Alcohol abuse with intoxication - Scribe Statement The provider has reviewed the documentation as recorded by the Scribe Jhoana Leiva Provider Attestation: All medical record entries made by the Scribe were at my direction and personally dictated by me. I have reviewed the chart and agree that the record accurately reflects my personal performance of the history, physical exam, medical decision making, and the department course for this patient. I have also personally directed, reviewed, and agree with the discharge instructions and disposition.
[2016-08-06 05:18] VITALS: BP 152/92; PULSE 91; RESP 16; TEMP 97.6
== END 2016-08-06 05:18 | disposition home or self-care (01) ==
LOC: C.ER 22:09
DX: F10.120 Alcohol abuse with intoxication, uncomplicated (principal); Y90.9 Presence of alcohol in blood, level not specified

== ENCOUNTER 2016-08-06 14:23 | Observation (INO) | payer MEDICARE, OTHER ==
[2016-08-06 14:23] VITALS: BMI 25.1
--- NOTE | 2016-08-06 14:35 | C.PDOC ---
History Of Present Illness 70 y/o male presents to the ED for public intoxication. Pt has no physical complaints at this time. Pt has numerous visits to ED in the past for same. Time Seen by Provider: 08/06/16 14:33 Chief Complaint (Nursing): Medical Clearance History Per: Patient History/Exam Limitations: no limitations Onset/Duration Of Symptoms: Hrs Current Symptoms Are (Timing): Still Present Severity: Mild Recent travel outside of the [place]: No Past Medical History Reviewed: Historical Data, Nursing Documentation, Vital Signs Vital Signs: Last Vital Signs Temp 97.9 F 08/06/16 22:57 Pulse 77 08/06/16 22:57 Resp 20 08/06/16 22:57 BP 127/69 08/06/16 22:57 Pulse Ox 98 08/06/16 22:57 - Medical History PMH: Anxiety, Asthma, Back Problems, Bipolar Disorder, Depression, Gastritis, HTN, Schizophrenia, Chronic Pain (Back Pain) Surgical History: Hernia Repair, Tonsillectomy - [facility] Procedures DETOXIFICATION SERVICES FOR SUBSTANCE ABUSE TREATMENT (12/26/15) Family History: States: Unknown Family Hx - Social History Hx Tobacco Use: No Hx Alcohol Use: Yes Hx Substance Use: No Review Of Systems Constitutional: Negative for: Fever Cardiovascular: Negative for: Chest Pain Respiratory: Negative for: Shortness of Breath Gastrointestinal: Negative for: Vomiting Neurological: Negative for: Headache Physical Exam - Physical Exam Appears: Non-toxic, Other (disheveled) Skin: Warm, Dry, No Rash Head: Atraumatic, Normacephalic Neck: Normal ROM, Supple Chest: Symmetrical Cardiovascular: Rhythm Regular Respiratory: Normal Breath Sounds, No Rales, No Rhonchi, No Wheezing Gastrointestinal/Abdominal: Soft, No Tenderness Extremity: Normal ROM Disoriented To: Time Gait: Unsteady ED OBSERVATION Date of observation admission: 08/06/16 Time of observation admission: 14:34 - Observation admission statement Patient is being placed in observation because:: Lack of community services, for acute intoxication - Goals of Observation Goals of observation are:: Remove from public site until sober - Progress Note Progress Note: 08/06/16 14:35 pt remained stable but still intoxicated 08/07/16 01:00 Still not ambulatory Disposition - Disposition Disposition: HOME/ ROUTINE Disposition Time: 01:00 Condition: FAIR - Clinical Impression Clinical Impression: Alcohol abuse with uncomplicated intoxication, Homelessness - Scribe Statement The provider has reviewed the documentation as recorded by the Scribe Isaac Sweeney Provider Attestation: All medical record entries made by the Scribe were at my direction and personally dictated by me. I have reviewed the chart and agree that the record accurately reflects my personal performance of the history, physical exam, medical decision making, and the department course for this patient. I have also personally directed, reviewed, and agree with the discharge instructions and disposition. Physician Patient Turnover Patient Signed Over To: Ramón Edmonds Handoff Comments: Pending sobriety
[2016-08-06 22:58] VITALS: RESP 20
[2016-08-07 03:19] VITALS: BP 120/60; PULSE 70; TEMP 98.2; O2SAT 96
== END 2016-08-07 04:03 | disposition home or self-care (01) ==
LOC: C.ER 14:23 → C.9OBSV 14:33
PROVIDERS: ADMIT Emergency Medicine; ATTEND Emergency Medicine
DX: F10.120 Alcohol abuse with intoxication, uncomplicated (principal); Z59.0 Homelessness; F31.9 Bipolar disorder, unspecified; I10 Essential (primary) hypertension; J45.909 Unspecified asthma, uncomplicated; Y90.9 Presence of alcohol in blood, level not specified
CPT/HCPCS: 82948; G0378

== ENCOUNTER 2016-08-07 19:00 | Observation (INO) | payer MEDICARE, OTHER ==
[2016-08-07 19:01] VITALS: BMI 25.1
[2016-08-07 19:50] VITALS: O2SAT 96
--- NOTE | 2016-08-07 20:26 | C.PDOC ---
History Of Present Illness Pt was BIBEMS due to public alcohol intoxication. Time Seen by Provider: 08/07/16 19:23 Chief Complaint (Nursing): Substance Abuse History Per: Patient, EMS History/Exam Limitations: intoxication Onset/Duration Of Symptoms: Unknown (today) Current Symptoms Are (Timing): Still Present Suicide/Self Injury Attempted (Context): None Modifying Factor(s): Alcohol Severity: Moderate Associated Symptoms: denies: Suicidal Thoughts, Suicidal Plan Additional History Per: Prior Records Past Medical History Reviewed: Historical Data, Nursing Documentation, Vital Signs Vital Signs: Last Vital Signs Temp 97.3 F L 08/08/16 03:21 Pulse 75 08/08/16 03:21 Resp 20 08/08/16 03:21 BP 141/70 08/08/16 03:21 Pulse Ox 96 08/07/16 20:26 - Medical History PMH: Anxiety, Asthma, Back Problems, Bipolar Disorder, Depression, Gastritis, HTN, Schizophrenia, Chronic Pain (Back Pain) Other PMH: Alcohol abuse Surgical History: Hernia Repair, Tonsillectomy - [facility] Procedures DETOXIFICATION SERVICES FOR SUBSTANCE ABUSE TREATMENT (12/26/15) Family History: States: Unknown Family Hx - Social History Hx Tobacco Use: No Hx Alcohol Use: Yes Hx Substance Use: No - Immunization History Hx Tetanus Toxoid Vaccination: No Hx Influenza Vaccination: No Hx Pneumococcal Vaccination: No Review Of Systems Review Of Systems: ROS cannot be obtained secondary to pt's inabilty to answer questions. Physical Exam - Physical Exam Appears: No Acute Distress, Unkempt, Other (AOB, intoxicated) Skin: Normal Color, Warm, Dry Head: Atraumatic Eye(s): bilateral: PERRL Neck: Normal ROM, No Midline Cervical Tenderness, No Step Off Deformity, Supple Cardiovascular: Rhythm Regular Respiratory: Normal Breath Sounds, No Accessory Muscle Use Gastrointestinal/Abdominal: Soft Extremity: Normal ROM, No Deformity Neurological/Psych: Slow To Respond With Command, Other (Moving all extretmies) Gait: Unable To Assess ED Course And Treatment O2 Sat by Pulse Oximetry: 96 Pulse Ox Interpretation: Normal Reassessment Condition: Improved ED OBSERVATION Discharge: Yes Date of observation admission: 08/07/16 Time of observation admission: 19:30 - Observation admission statement Patient is being placed in observation because:: Alcohol intoxication. - Goals of Observation Goals of observation are:: Sobriety. - Progress Note Progress Note: 08/08/16 05:53 Pt was checked every two hours and remained stable throughout ED stay. He is now AAOx3. Steady gait. Wants to leave now. Disposition Counseled Patient/Family Regarding: Diagnosis, Need For Followup - Disposition Disposition: HOME/ ROUTINE Disposition Time: 05:53 Condition: IMPROVED - Clinical Impression Clinical Impression: Alcohol abuse
[2016-08-08 05:57] VITALS: BP 130/70; PULSE 80; RESP 14; TEMP 97.2
== END 2016-08-08 05:54 | disposition home or self-care (01) ==
LOC: C.ER 19:00 → C.9OBSV 20:26
PROVIDERS: ADMIT Emergency Medicine; ATTEND Emergency Medicine
DX: F10.129 Alcohol abuse with intoxication, unspecified (principal); F31.9 Bipolar disorder, unspecified; I10 Essential (primary) hypertension; J45.909 Unspecified asthma, uncomplicated; F10.120 Alcohol abuse with intoxication, uncomplicated; Y90.9 Presence of alcohol in blood, level not specified
CPT/HCPCS: G0378 ×2

== ENCOUNTER 2016-08-08 22:55 | Observation (INO) | payer MEDICARE, OTHER ==
[2016-08-08 22:55] VITALS: BMI 25.1
--- NOTE | 2016-08-08 23:41 | C.PDOC ---
History Of Present Illness Patient presents to the emergency room with ETOH intoxication. Patient is well known to the ED with multiple visits for ETOH intoxication. Patient denies any physical complaints. Time Seen by Provider: 08/08/16 23:40 History Per: Patient History/Exam Limitations: no limitations Onset/Duration Of Symptoms: Hrs Current Symptoms Are (Timing): Still Present Suicide/Self Injury Attempted (Context): None Modifying Factor(s): Alcohol Associated Symptoms: denies: Suicidal Thoughts, Suicidal Plan Involuntary Hold By: None Recent travel outside of the [place]: No Past Medical History Reviewed: Historical Data, Nursing Documentation, Vital Signs Vital Signs: Last Vital Signs Temp 97.6 F 08/08/16 23:41 Pulse 72 08/08/16 23:41 Resp 20 08/08/16 23:41 BP 129/76 08/08/16 23:41 Pulse Ox 96 08/09/16 01:59 - Medical History PMH: Anxiety, Asthma, Back Problems, Bipolar Disorder, Depression, Gastritis, HTN, Schizophrenia, Chronic Pain (Back Pain) Surgical History: Hernia Repair, Tonsillectomy - [facility] Procedures DETOXIFICATION SERVICES FOR SUBSTANCE ABUSE TREATMENT (12/26/15) Family History: States: No Known Family Hx - Social History Hx Tobacco Use: No Hx Alcohol Use: Yes Hx Substance Use: No - Immunization History Hx Tetanus Toxoid Vaccination: No Hx Influenza Vaccination: No Hx Pneumococcal Vaccination: No Review Of Systems Constitutional: Positive for: Other (ETOH intoxication). Negative for: Fever, Chills Gastrointestinal: Negative for: Nausea, Vomiting, Diarrhea Physical Exam - Physical Exam Appears: Non-toxic, No Acute Distress, Other (ETOH on breath) Skin: Warm, Dry Extremity: Normal ROM, No Tenderness Neurological/Psych: Oriented x3, Normal Speech, Normal Cognition ED Course And Treatment O2 Sat by Pulse Oximetry: 96 Pulse Ox Interpretation: Normal Reevaluation Time: 05:52 Reassessment Condition: Improved ED OBSERVATION Discharge: Yes Disposition Counseled Patient/Family Regarding: Studies Performed, Diagnosis, Need For Followup - Disposition Disposition: HOME/ ROUTINE Disposition Time: 23:41 Condition: FAIR - Clinical Impression Clinical Impression: Alcohol abuse with intoxication - Scribe Statement The provider has reviewed the documentation as recorded by the Omar Duenas Provider Scribe Attestation: All medical record entries made by the Omar were at my direction and personally dictated by me. I have reviewed the chart and agree that the record accurately reflects my personal performance of the history, physical exam, medical decision making, and the department course for this patient. I have also personally directed, reviewed, and agree with the discharge instructions and disposition.
[2016-08-08 23:44] VITALS: O2SAT 96
[2016-08-09 05:58] VITALS: BP 132/74; PULSE 78; RESP 16; TEMP 97.8
== END 2016-08-09 05:53 | disposition home or self-care (01) ==
LOC: C.ER 22:55 → C.9OBSV 08-09 00:49
PROVIDERS: ADMIT Emergency Medicine; ATTEND Emergency Medicine
DX: F10.129 Alcohol abuse with intoxication, unspecified (principal); Y90.9 Presence of alcohol in blood, level not specified
CPT/HCPCS: 82948; 99283; G0378

== ENCOUNTER 2016-08-10 21:14 | Observation (INO) | payer MEDICARE, OTHER ==
[2016-08-10 21:14] VITALS: BMI 25.1
[2016-08-10 21:26] VITALS: TEMP 97.9
--- NOTE | 2016-08-10 21:47 | C.PDOC ---
History Of Present Illness The patient, a 70 y/o male, presents to the ED for evaluation of public alcohol intoxication for an unknown duration. Patient is familiar to the ED and has had many prior visits concerning alcohol intoxication. Patient admits to drinking earlier today. He denies suicidal/homicidal ideation and has no physical complaints at this time. Time Seen by Provider: 08/10/16 21:30 Chief Complaint (Nursing): Substance Abuse History Per: Patient History/Exam Limitations: intoxication Onset/Duration Of Symptoms: Unknown Current Symptoms Are (Timing): Still Present Suicide/Self Injury Attempted (Context): None Modifying Factor(s): Alcohol Associated Symptoms: denies: Suicidal Thoughts, Suicidal Plan Involuntary Hold By: None Recent travel outside of the [place]: No Additional History Per: Patient Past Medical History Reviewed: Historical Data, Nursing Documentation, Vital Signs Vital Signs: Last Vital Signs Temp 97.9 F 08/11/16 03:57 Pulse 69 08/11/16 03:57 Resp 16 08/11/16 03:57 BP 133/84 08/11/16 03:57 Pulse Ox 97 08/11/16 03:57 - Medical History PMH: Anxiety, Asthma, Back Problems, Bipolar Disorder, Depression, Gastritis, HTN, Schizophrenia, Chronic Pain (Back Pain) Surgical History: Hernia Repair, Tonsillectomy - [facility] Procedures DETOXIFICATION SERVICES FOR SUBSTANCE ABUSE TREATMENT (12/26/15) Family History: States: Unknown Family Hx - Social History Hx Tobacco Use: No Hx Alcohol Use: Yes Hx Substance Use: No - Immunization History Hx Tetanus Toxoid Vaccination: No Hx Influenza Vaccination: No Hx Pneumococcal Vaccination: No Review Of Systems Except As Marked, All Systems Reviewed And Found Negative. Constitutional: Positive for: Other (+alcohol intoxication ) Psych: Negative for: Suicidal ideation Physical Exam - Physical Exam Appears: No Acute Distress, Other (visibly intoxicated ) Skin: Normal Color, Warm, Dry Head: Atraumatic, Normacephalic Eye(s): bilateral: Normal Inspection Oral Mucosa: Moist, Other (alcohol on breath ) Neck: Normal ROM, Supple Chest: Symmetrical, No Deformity, No Tenderness Cardiovascular: Rhythm Regular Respiratory: Normal Breath Sounds Extremity: Normal ROM, Capillary Refill (less than 2 seconds ) Neurological/Psych: Other (arousable to touch and verbal stimuli ) Gait: Unsteady ED Course And Treatment O2 Sat by Pulse Oximetry: 94 Reevaluation Time: 05:36 Reassessment Condition: Improved ED OBSERVATION Discharge: Yes Date of observation admission: 08/10/16 Time of observation admission: 21:51 - Observation admission statement Patient is being placed in observation because:: alcohol intoxication - Goals of Observation Goals of observation are:: sobriety - Progress Note Progress Note: 08/10/16 22:11 patient is resting comfortably, vitals are stable. Disposition Doctor Will See Patient In The: Office Counseled Patient/Family Regarding: Studies Performed, Diagnosis - Disposition Disposition: HOME/ ROUTINE Disposition Time: 05:36 Condition: GOOD - Clinical Impression Clinical Impression: Alcohol abuse - Scribe Statement The provider has reviewed the documentation as recorded by the Scribe (Chrissy Leiva) Provider Attestation: All medical record entries made by the Scribe were at my direction and personally dictated by me. I have reviewed the chart and agree that the record accurately reflects my personal performance of the history, physical exam, medical decision making, and the department course for this patient. I have also personally directed, reviewed, and agree with the discharge instructions and disposition.
[2016-08-11 05:54] VITALS: BP 125/63; PULSE 82; RESP 17; O2SAT 100
== END 2016-08-11 05:36 | disposition home or self-care (01) ==
LOC: C.ER 21:14 → C.9OBSV 21:51
PROVIDERS: ADMIT Internal Medicine; ATTEND Internal Medicine
DX: F10.129 Alcohol abuse with intoxication, unspecified (principal); Y90.9 Presence of alcohol in blood, level not specified
CPT/HCPCS: 82948; G0378

== ENCOUNTER 2016-08-13 02:41 | Observation (INO) | payer MEDICARE, OTHER ==
[2016-08-13 02:41] VITALS: BMI 25.1
[2016-08-13 03:01] VITALS: BP 160/96; PULSE 93; RESP 18; TEMP 97.3; O2SAT 98
--- NOTE | 2016-08-13 03:21 | C.PDOC ---
History Of Present Illness Patient is brought to the ED for acute alcohol intoxication. Patient admits to drinking alcohol prior to arrival. He is well known in the ED and to the staff for intoxication. Patient denies chest pain, shortness of breath, nausea, vomiting, or any other complaint at this time. Time Seen by Provider: 08/13/16 03:21 Chief Complaint (Nursing): Substance Abuse History Per: Patient History/Exam Limitations: intoxication Onset/Duration Of Symptoms: Other Current Symptoms Are (Timing): Still Present Suicide/Self Injury Attempted (Context): None Modifying Factor(s): Alcohol Severity: None Pain Scale Rating Of: 0 Recent travel outside of the [place]: No Additional History Per: Prior Records Past Medical History Reviewed: Historical Data, Nursing Documentation, Vital Signs Vital Signs: Last Vital Signs Temp 97.3 F L 08/13/16 02:54 Pulse 93 H 08/13/16 02:54 Resp 18 08/13/16 02:54 BP 160/96 H 08/13/16 02:54 Pulse Ox 98 08/13/16 03:26 - Medical History PMH: Anxiety, Asthma, Back Problems, Bipolar Disorder, Depression, Gastritis, HTN, Schizophrenia, Chronic Pain (Back Pain) Surgical History: Hernia Repair, Tonsillectomy - [facility] Procedures DETOXIFICATION SERVICES FOR SUBSTANCE ABUSE TREATMENT (12/26/15) Family History: States: Unknown Family Hx - Social History Hx Tobacco Use: No Hx Alcohol Use: Yes Hx Substance Use: No - Immunization History Hx Tetanus Toxoid Vaccination: No Hx Influenza Vaccination: No Hx Pneumococcal Vaccination: No Review Of Systems Cardiovascular: Negative for: Chest Pain Respiratory: Negative for: Shortness of Breath Gastrointestinal: Negative for: Nausea, Vomiting Psych: Negative for: Suicidal ideation Physical Exam - Physical Exam Appears: Non-toxic, No Acute Distress, Other (intoxicated) Skin: Warm, Dry Head: Atraumatic, Normacephalic Neck: Supple Chest: Symmetrical Cardiovascular: Rhythm Regular Respiratory: No Rales, No Rhonchi, No Wheezing Back: No CVA Tenderness Extremity: Bilateral: Atraumatic ED Course And Treatment O2 Sat by Pulse Oximetry: 98 (room air) Pulse Ox Interpretation: Normal Disposition - Disposition Referrals: [facility] [Outside] Disposition Time: 03:21 Condition: FAIR - Clinical Impression Clinical Impression: Alcohol dependence, Alcohol abuse with intoxication - Scribe Statement The provider has reviewed the documentation as recorded by the Scribe Jhoana Leiva Provider Attestation: All medical record entries made by the Scribe were at my direction and personally dictated by me. I have reviewed the chart and agree that the record accurately reflects my personal performance of the history, physical exam, medical decision making, and the department course for this patient. I have also personally directed, reviewed, and agree with the discharge instructions and disposition.
--- NOTE | 2016-08-13 03:21 | C.PDOC ---
Time Seen by Provider: 08/13/16 03:21 Chief Complaint (Nursing): Substance Abuse Past Medical History Vital Signs: Last Vital Signs Temp 97.3 F L 08/13/16 02:54 Pulse 93 H 08/13/16 02:54 Resp 18 08/13/16 02:54 BP 160/96 H 08/13/16 02:54 Pulse Ox 98 08/13/16 02:54 - Medical History PMH: Anxiety, Asthma, Back Problems, Bipolar Disorder, Depression, Gastritis, HTN, Schizophrenia, Chronic Pain (Back Pain) Surgical History: Hernia Repair, Tonsillectomy - [facility] Procedures DETOXIFICATION SERVICES FOR SUBSTANCE ABUSE TREATMENT (12/26/15) Family History: States: Unknown Family Hx - Social History Hx Tobacco Use: No Hx Alcohol Use: Yes Hx Substance Use: No - Immunization History Hx Tetanus Toxoid Vaccination: No Hx Influenza Vaccination: No Hx Pneumococcal Vaccination: No ED Course And Treatment O2 Sat by Pulse Oximetry: 98 Disposition Counseled Patient/Family Regarding: Studies Performed, Diagnosis, Need For Followup - Disposition Referrals: [facility] [Outside] Disposition Time: 03:21 Condition: FAIR - Clinical Impression Clinical Impression: Alcohol dependence, Alcohol abuse with intoxication
== END 2016-08-13 06:00 | disposition home or self-care (01) ==
LOC: C.ER 02:41 → C.9OBSV 03:22
PROVIDERS: ADMIT Emergency Medicine; ATTEND Emergency Medicine
DX: F10.220 Alcohol dependence with intoxication, uncomplicated (principal); I10 Essential (primary) hypertension; Y90.9 Presence of alcohol in blood, level not specified
CPT/HCPCS: 82948; G0378

== ENCOUNTER 2016-08-13 20:54 | Observation (INO) | payer MEDICARE, OTHER ==
[2016-08-13 20:55] VITALS: BMI 25.1
[2016-08-13 21:06] VITALS: TEMP 98.4; O2SAT 97
--- NOTE | 2016-08-13 21:45 | C.PDOC ---
History Of Present Illness 70 y/o male presents for alcohol intoxication. Well known to ER staff with multiple similar prior visits. Denies any complaints on arrival. Requesting a place to stay. Time Seen by Provider: 08/13/16 21:44 Chief Complaint (Nursing): Substance Abuse History Per: Patient History/Exam Limitations: no limitations Onset/Duration Of Symptoms: Persistent Current Symptoms Are (Timing): Still Present Modifying Factor(s): Alcohol Associated Symptoms: denies: Suicidal Thoughts, Suicidal Plan Recent travel outside of the [place]: No Past Medical History Reviewed: Historical Data, Nursing Documentation, Vital Signs Vital Signs: Last Vital Signs Temp 98.4 F 08/13/16 21:05 Pulse 96 H 08/13/16 21:05 Resp 18 08/13/16 21:05 BP 129/80 08/13/16 21:05 Pulse Ox 97 08/14/16 04:11 - Medical History PMH: Anxiety, Asthma, Back Problems, Bipolar Disorder, Depression, Gastritis, HTN, Schizophrenia, Chronic Pain (Back Pain) Surgical History: Hernia Repair, T[facility]illectomy - [facility] Procedures DETOXIFICATION SERVICES FOR SUBSTANCE ABUSE TREATMENT (12/26/15) Family History: States: Unknown Family Hx - Social History Hx Tobacco Use: No Hx Alcohol Use: Yes Hx Substance Use: No - Immunization History Hx Tetanus Toxoid Vaccination: No Hx Influenza Vaccination: No Hx Pneumococcal Vaccination: No Review Of Systems Constitutional: Negative for: Fever, Chills Cardiovascular: Negative for: Chest Pain Respiratory: Negative for: Cough, Shortness of Breath Gastrointestinal: Negative for: Nausea, Vomiting Skin: Negative for: Rash Physical Exam - Physical Exam Appears: Non-toxic, No Acute Distress Skin: Warm, Dry Head: Atraumatic Chest: Symmetrical Cardiovascular: Rhythm Regular Respiratory: No Rales, No Rhonchi, No Wheezing Gastrointestinal/Abdominal: Soft, No Tenderness Back: Normal Inspection, No Vertebral Tenderness, No Paraspinal Tenderness Extremity: Normal ROM, Capillary Refill (< 2 sec. ) Neurological/Psych: Oriented x3 ED Course And Treatment O2 Sat by Pulse Oximetry: 97 (RA) Pulse Ox Interpretation: Normal Reevaluation Time: 06:08 Reassessment Condition: Improved ED OBSERVATION Discharge: Yes Date of observation admission: 08/13/16 Time of observation admission: 21:45 - Observation admission statement Patient is being placed in observation because:: Acute alcohol intoxication - Goals of Observation Goals of observation are:: sobriety - Progress Note Progress Note: 08/13/16 21:45 vitals stable, no distress 08/13/16 23:46 no complaints 08/14/16 01:45 vitals stable 08/14/16 03:46 ambulating to the bathroom 08/14/16 06:08 wants to go home Disposition Counseled Patient/Family Regarding: Studies Performed, Diagnosis - Disposition Disposition: HOME/ ROUTINE Disposition Time: 21:45 Condition: FAIR - Clinical Impression Clinical Impression: Alcoholism /alcohol abuse, Alcohol intoxication - Scribe Statement The provider has reviewed the documentation as recorded by the Omar Green Provider Scribe Attestation: All medical record entries made by the Omar were at my direction and personally dictated by me. I have reviewed the chart and agree that the record accurately reflects my personal performance of the history, physical exam, medical decision making, and the department course for this patient. I have also personally directed, reviewed, and agree with the discharge instructions and disposition.
[2016-08-14 06:32] VITALS: BP 150/88; PULSE 80; RESP 20
== END 2016-08-14 05:00 | disposition home or self-care (01) ==
LOC: C.ER 20:54 → C.9OBSV 21:45
PROVIDERS: ADMIT Emergency Medicine; ATTEND Emergency Medicine
DX: F10.229 Alcohol dependence with intoxication, unspecified (principal); I10 Essential (primary) hypertension; J45.909 Unspecified asthma, uncomplicated; Y90.9 Presence of alcohol in blood, level not specified
CPT/HCPCS: G0378 ×2

== ENCOUNTER 2016-08-19 00:49 | Emergency (ER) | payer MEDICARE, OTHER ==
[2016-08-19 00:49] VITALS: BMI 25.1
[2016-08-19 02:21] VITALS: RESP 18
--- NOTE | 2016-08-19 04:33 | C.PDOC ---
History Of Present Illness 70 y/o male presents for alcohol intoxication. Well known to ER staff with multiple similar prior visits. Denies any complaints on arrival. Requesting a place to stay. Time Seen by Provider: 08/19/16 04:32 Chief Complaint (Nursing): Substance Abuse History Per: Patient History/Exam Limitations: no limitations Onset/Duration Of Symptoms: Hrs Current Symptoms Are (Timing): Still Present Suicide/Self Injury Attempted (Context): None Modifying Factor(s): Alcohol Severity: Mild Recent travel outside of the [place]: No Additional History Per: Patient Past Medical History Reviewed: Historical Data, Nursing Documentation, Vital Signs Vital Signs: Last Vital Signs Temp 97.8 F 08/19/16 02:19 Pulse 86 08/19/16 02:19 Resp 18 08/19/16 02:19 BP 146/82 08/19/16 02:19 Pulse Ox 96 08/19/16 04:41 - Medical History PMH: Anxiety, Asthma, Back Problems, Bipolar Disorder, Depression, Gastritis, HTN, Schizophrenia, Chronic Pain (Back Pain) Surgical History: Hernia Repair, Tonsillectomy - [facility] Procedures DETOXIFICATION SERVICES FOR SUBSTANCE ABUSE TREATMENT (12/26/15) Family History: States: Unknown Family Hx - Social History Hx Tobacco Use: No Hx Alcohol Use: Yes Hx Substance Use: No - Immunization History Hx Tetanus Toxoid Vaccination: No Hx Influenza Vaccination: No Hx Pneumococcal Vaccination: No Review Of Systems Except As Marked, All Systems Reviewed And Found Negative. Constitutional: Positive for: Other (EToH intoxicated). Negative for: Fever, Chills Cardiovascular: Negative for: Chest Pain Respiratory: Negative for: Shortness of Breath Gastrointestinal: Negative for: Vomiting, Abdominal Pain, Diarrhea Skin: Negative for: Rash Psych: Negative for: Suicidal ideation Physical Exam - Physical Exam Appears: Non-toxic, No Acute Distress Skin: Warm, Dry Head: Atraumatic Cardiovascular: No Murmur Respiratory: No Rales, No Rhonchi, No Wheezing Gastrointestinal/Abdominal: Soft, No Tenderness Extremity: Normal ROM, No Pedal Edema Neurological/Psych: Oriented x3, No Other (No focal deficit) ED Course And Treatment O2 Sat by Pulse Oximetry: 96 (Room air) Pulse Ox Interpretation: Normal Reevaluation Time: 05:27 Reassessment Condition: Improved ED OBSERVATION Discharge: Yes Date of observation admission: 08/19/16 Time of observation admission: 04:41 - Observation admission statement Patient is being placed in observation because:: EToH intoxication - Goals of Observation Goals of observation are:: Sobriety Disposition Counseled Patient/Family Regarding: Studies Performed, Diagnosis, Need For Followup - Disposition Referrals: [facility] [Outside] Disposition: HOME/ ROUTINE Disposition Time: 04:32 Condition: FAIR Instructions: Alcohol Intoxication (DC) - Clinical Impression Clinical Impression: Homelessness, Alcohol abuse with intoxication - Scribe Statement The provider has reviewed the documentation as recorded by the Scribe Latosha hagen All medical record entries made by the Augustaibjackelyn were at my direction and personally dictated by me. I have reviewed the chart and agree that the record accurately reflects my personal performance of the history, physical exam, medical decision making, and the department course for this patient. I have also personally directed, reviewed, and agree with the discharge instructions and disposition.
[2016-08-19 05:55] VITALS: BP 134/80; PULSE 79; TEMP 98; O2SAT 97
== END 2016-08-19 05:58 | disposition home or self-care (01) ==
LOC: C.ER 00:49 → SUPCPDRO 00:49 → C.ER 05:58
DX: F10.129 Alcohol abuse with intoxication, unspecified (principal); Y90.9 Presence of alcohol in blood, level not specified; Z59.0 Homelessness

== ENCOUNTER 2016-08-22 14:17 | Emergency (ER) | payer MEDICARE, OTHER ==
--- NOTE | 2016-08-22 14:32 | C.PDOC ---
History Of Present Illness 70 y/o male brought to ED by EMS for public intoxication. Patient is well known to ER staff with multiple similar presentations. Denies any acute medical complaints at this time. Patient does not appear to be intoxicated on arrival, with steady gait, and normal speech. Time Seen by Provider: 08/22/16 14:25 Chief Complaint (Nursing): Substance Abuse History Per: Patient History/Exam Limitations: no limitations Onset/Duration Of Symptoms: Persistent Current Symptoms Are (Timing): Still Present Suicide/Self Injury Attempted (Context): None Modifying Factor(s): Alcohol Associated Symptoms: denies: Suicidal Thoughts, Suicidal Plan Recent travel outside of the [place]: No Past Medical History Reviewed: Historical Data, Nursing Documentation, Vital Signs Vital Signs: Last Vital Signs Temp 98.1 F 08/22/16 14:20 Pulse 82 08/22/16 14:20 Resp 18 08/22/16 14:20 BP 110/72 08/22/16 14:20 Pulse Ox 99 08/22/16 14:20 - Medical History PMH: Anxiety, Asthma, Back Problems, Bipolar Disorder, Depression, Gastritis, HTN, Schizophrenia, Chronic Pain (Back Pain) Surgical History: Hernia Repair, Tonsillectomy - [facility] Procedures DETOXIFICATION SERVICES FOR SUBSTANCE ABUSE TREATMENT (12/26/15) Family History: States: Unknown Family Hx - Social History Hx Tobacco Use: No Hx Alcohol Use: Yes Hx Substance Use: No - Immunization History Hx Tetanus Toxoid Vaccination: No Hx Influenza Vaccination: No Hx Pneumococcal Vaccination: No Review Of Systems Except As Marked, All Systems Reviewed And Found Negative. Constitutional: Negative for: Fever Cardiovascular: Negative for: Chest Pain Respiratory: Negative for: Cough, Shortness of Breath Gastrointestinal: Negative for: Vomiting, Abdominal Pain Skin: Negative for: Rash Physical Exam - Physical Exam Appears: Non-toxic, No Acute Distress Skin: Warm, Dry Head: Atraumatic, Normacephalic Chest: Symmetrical Cardiovascular: Rhythm Regular Respiratory: Normal Breath Sounds, No Rales, No Rhonchi, No Wheezing Extremity: Normal ROM Neurological/Psych: Oriented x3 ED Course And Treatment Reevaluation Time: 14:31 Reassessment Condition: Improved (stable gait, eloped from ED with cane and reddish bag of his belongings.) Medical Decision Making Medical Decision Making: typical malingering LOW susp of ETOH abuse eloped Disposition Doctor Will See Patient In The: Office Counseled Patient/Family Regarding: Studies Performed, Diagnosis - Disposition Disposition: HOME/ ROUTINE Disposition Time: 14:31 Condition: GOOD - Clinical Impression Clinical Impression: Homelessness, Malingering - Scribe Statement The provider has reviewed the documentation as recorded by the Omar Green Provider Scribe Attestation: All medical record entries made by the Omar were at my direction and personally dictated by me. I have reviewed the chart and agree that the record accurately reflects my personal performance of the history, physical exam, medical decision making, and the department course for this patient. I have also personally directed, reviewed, and agree with the discharge instructions and disposition.
[2016-08-22 14:34] VITALS: BP 110/72; PULSE 82; RESP 18; TEMP 98.1; O2SAT 99
== END 2016-08-22 14:36 | disposition home or self-care (01) ==
LOC: C.ER 14:17
DX: Z76.5 Malingerer [conscious simulation] (principal); Z59.0 Homelessness

== ENCOUNTER 2016-08-23 21:56 | Observation (INO) | payer MEDICARE, OTHER ==
[2016-08-23 22:16] VITALS: BMI 30.4
[2016-08-23 22:23] VITALS: PULSE 76
--- NOTE | 2016-08-23 22:54 | C.PDOC ---
History Of Present Illness 70 year old male brought to the ER by EMS for ETOH intoxication. Patient denies any physical complaints at this time. Time Seen by Provider: 08/23/16 21:58 Chief Complaint (Nursing): Substance Abuse History Per: EMS History/Exam Limitations: intoxication Onset/Duration Of Symptoms: Unknown Current Symptoms Are (Timing): Still Present Suicide/Self Injury Attempted (Context): None Modifying Factor(s): Alcohol Severity: Moderate Associated Symptoms: denies: Depression, Suicidal Thoughts, Suicidal Plan Involuntary Hold By: Emergency Physician Past Medical History Reviewed: Historical Data, Nursing Documentation, Vital Signs Vital Signs: Last Vital Signs Temp 98.2 F 08/24/16 06:38 Pulse 76 08/24/16 06:38 Resp 20 08/24/16 06:38 BP 132/72 08/24/16 06:38 Pulse Ox 97 08/24/16 06:38 - Medical History PMH: Anxiety, Asthma, Back Problems, Bipolar Disorder, Depression, Gastritis, HTN, Schizophrenia, Chronic Pain (Back Pain) Surgical History: Hernia Repair, Tonsillectomy - [facility] Procedures DETOXIFICATION SERVICES FOR SUBSTANCE ABUSE TREATMENT (12/26/15) Family History: States: No Known Family Hx - Social History Hx Tobacco Use: No Hx Alcohol Use: Yes Hx Substance Use: No - Immunization History Hx Tetanus Toxoid Vaccination: No Hx Influenza Vaccination: No Hx Pneumococcal Vaccination: No Review Of Systems Except As Marked, All Systems Reviewed And Found Negative. Constitutional: Negative for: Fever, Chills Cardiovascular: Negative for: Chest Pain, Palpitations Respiratory: Negative for: Shortness of Breath Gastrointestinal: Negative for: Nausea, Vomiting, Abdominal Pain, Diarrhea Neurological: Positive for: Other (ETOH intoxication) Physical Exam - Physical Exam Appears: Well, Non-toxic, Other (ETOH on breath) Skin: Normal Color, Warm, Dry Head: Atraumatic, Normacephalic Eye(s): bilateral: Normal Inspection Oral Mucosa: Moist Cardiovascular: Rhythm Regular, No Murmur Respiratory: Normal Breath Sounds, No Rales, No Rhonchi, No Wheezing Gastrointestinal/Abdominal: Normal Exam, Bowel Sounds, Soft, No Tenderness Extremity: Bilateral: Atraumatic Neurological/Psych: Other (awake, alert, intoxicated, moving all 4 extremities spontaneously) ED Course And Treatment O2 Sat by Pulse Oximetry: 98 (Room air) Pulse Ox Interpretation: Normal Progress Note: Accucheck ordered and reviewed. Patient placed in ED observation pending sobriety. 1:35am- Patient arousable to verbal stimuli, in no distress/pain. Pending sobriety. Reevaluation Time: 06:30 Reassessment Condition: Improved (Patient is currently AAOx3, ambulating normally in the ED. He is clinically sober at this time, will discharge.) ED OBSERVATION Date of observation admission: 08/23/16 Time of observation admission: 22:21 - Observation admission statement Patient is being placed in observation because:: Acute ETOH intoxication - Goals of Observation Goals of observation are:: Sobriety Disposition Counseled Patient/Family Regarding: Diagnosis, Need For Followup - Disposition Disposition: HOME/ ROUTINE Disposition Time: 06:30 Condition: STABLE - POA Present On Arrival: None - Clinical Impression Clinical Impression: Alcohol intoxication - Scribe Statement The provider has reviewed the documentation as recorded by the Scribe Chalino Huang All medical record entries made by the Augustaibe were at my direction and personally dictated by me. I have reviewed the chart and agree that the record accurately reflects my personal performance of the history, physical exam, medical decision making, and the department course for this patient. I have also personally directed, reviewed, and agree with the discharge instructions and disposition.
[2016-08-24 06:43] VITALS: BP 132/72; RESP 20; TEMP 98.2
[2016-08-24 23:59] VITALS: O2SAT 98
== END 2016-08-24 05:47 | disposition home or self-care (01) ==
LOC: C.ER 21:56 → C.9OBSV 22:43
PROVIDERS: ADMIT Emergency Medicine; ATTEND Emergency Medicine
DX: F10.120 Alcohol abuse with intoxication, uncomplicated (principal); Y90.9 Presence of alcohol in blood, level not specified; I10 Essential (primary) hypertension
CPT/HCPCS: 82948; 99284; G0378

== ENCOUNTER 2016-08-26 15:30 | Observation (INO) | payer MEDICARE, OTHER ==
[2016-08-26 15:30] VITALS: BMI 30.4
[2016-08-26 15:42] VITALS: O2SAT 98
--- NOTE | 2016-08-26 15:46 | C.PDOC ---
History Of Present Illness 70 y/o male presents to the ED with alcohol intoxication. Pt brought in by by EMS found down in a brock. Pt with frequent visits to the ED for the same. No complaints at this time. Time Seen by Provider: 08/26/16 15:43 Chief Complaint (Nursing): Substance Abuse History Per: Patient History/Exam Limitations: no limitations Suicide/Self Injury Attempted (Context): None Modifying Factor(s): Alcohol Severity: Mild Involuntary Hold By: None Recent travel outside of the [place]: No Past Medical History Reviewed: Historical Data, Nursing Documentation, Vital Signs Vital Signs: Last Vital Signs Temp 98.6 F 08/26/16 15:38 Pulse 75 08/26/16 15:38 Resp 19 08/26/16 15:38 BP 136/75 08/26/16 15:38 Pulse Ox 98 08/26/16 16:22 - Medical History PMH: Anxiety, Asthma, Back Problems, Bipolar Disorder, Depression, Gastritis, HTN, Schizophrenia, Chronic Pain (Back Pain) Surgical History: Hernia Repair, Tonsillectomy - [facility] Procedures DETOXIFICATION SERVICES FOR SUBSTANCE ABUSE TREATMENT (12/26/15) Family History: States: Unknown Family Hx - Social History Hx Tobacco Use: No Hx Alcohol Use: Yes Hx Substance Use: No - Immunization History Hx Tetanus Toxoid Vaccination: No Hx Influenza Vaccination: No Hx Pneumococcal Vaccination: No Review Of Systems Except As Marked, All Systems Reviewed And Found Negative. Physical Exam - Physical Exam Appears: Non-toxic, No Acute Distress, Unkempt, Other (intoxicated) Skin: Warm, Dry, No Rash Head: Atraumatic, Normacephalic Neck: Normal, Normal ROM, Supple Chest: Symmetrical Cardiovascular: Rhythm Regular, No Murmur Respiratory: Normal Breath Sounds, No Rales, No Rhonchi, No Wheezing Gastrointestinal/Abdominal: Soft, No Tenderness Extremity: Normal ROM Extremity: Bilateral: Atraumatic Neurological/Psych: Oriented x3 ED Course And Treatment O2 Sat by Pulse Oximetry: 98 (room air) Pulse Ox Interpretation: Normal Medical Decision Making Medical Decision Making: Pending patient sobriety. ED OBSERVATION Date of observation admission: 08/26/16 Time of observation admission: 15:45 - Observation admission statement Patient is being placed in observation because:: Alcohol intoxication - Goals of Observation Goals of observation are:: To sober up in the safe environment. Disposition - Disposition Disposition: HOSPITALIZED Disposition Time: 15:45 Condition: FAIR - Clinical Impression Clinical Impression: Alcohol intoxication - PA / HUB [employer]ER / Resident Statement MD/DO has reviewed & agrees with the documentation as recorded. - Scribe Statement The provider has reviewed the documentation as recorded by the Scribe Isaac Sweeney All medical record entries made by the Augustaibjackelyn were at my direction and personally dictated by me. I have reviewed the chart and agree that the record accurately reflects my personal performance of the history, physical exam, medical decision making, and the department course for this patient. I have also personally directed, reviewed, and agree with the discharge instructions and disposition. Physician Patient Turnover Patient Signed Over To: Jb Riddle Handoff Comments: waiting to sober up
[2016-08-26 20:42] VITALS: BP 134/89; PULSE 78; RESP 17; TEMP 98.4
== END 2016-08-26 21:16 | disposition left against medical advice (07) ==
LOC: C.ER 15:30 → C.9OBSV 15:44
PROVIDERS: ADMIT Student in an Organized Health Care Education/Training Program; ATTEND Student in an Organized Health Care Education/Training Program
DX: F10.120 Alcohol abuse with intoxication, uncomplicated (principal); Y90.9 Presence of alcohol in blood, level not specified
CPT/HCPCS: 82948; 99283; G0378

== ENCOUNTER 2016-08-28 16:05 | Observation (INO) | payer MEDICARE, OTHER ==
[2016-08-28 16:08] VITALS: BMI 30.4
--- NOTE | 2016-08-28 17:07 | C.PDOC ---
History Of Present Illness 70y/o male, brought to the emergency department with complaints of public intoxication. Patient has a Hx of several visits for same complaint in the past. no physical complaints at this time. Time Seen by Provider: 08/28/16 16:16 Chief Complaint (Nursing): Substance Abuse History Per: Patient History/Exam Limitations: no limitations Past Medical History Reviewed: Historical Data, Nursing Documentation, Vital Signs Vital Signs: Last Vital Signs Temp 98.4 F 08/28/16 22:49 Pulse 79 08/28/16 22:49 Resp 18 08/28/16 22:49 BP 133/77 08/28/16 22:49 Pulse Ox 97 08/29/16 00:06 - Medical History PMH: Anxiety, Asthma, Back Problems, Bipolar Disorder, Depression, Gastritis, HTN, Schizophrenia, Chronic Pain (Back Pain) Surgical History: Hernia Repair, Tonsillectomy - [facility] Procedures DETOXIFICATION SERVICES FOR SUBSTANCE ABUSE TREATMENT (12/26/15) Family History: States: Unknown Family Hx - Social History Hx Tobacco Use: No Hx Alcohol Use: Yes Hx Substance Use: No - Immunization History Hx Tetanus Toxoid Vaccination: No Hx Influenza Vaccination: No Hx Pneumococcal Vaccination: No Review Of Systems Except As Marked, All Systems Reviewed And Found Negative. Constitutional: Negative for: Fever Cardiovascular: Negative for: Chest Pain Gastrointestinal: Negative for: Vomiting Genitourinary: Negative for: Incontinence Neurological: Negative for: Weakness, Numbness Psych: Negative for: Suicidal ideation Physical Exam - Physical Exam Appears: No Acute Distress, Other (INTOXICATED. ETOH ON BREATH. AWAKE AND ALERT. COOPERATIVE. NO SIGNS OR SX OF ACUTE WITHDRAWAL.) Skin: Warm, Dry Head: Normacephalic Eye(s): bilateral: Normal Inspection Nose: Normal Oral Mucosa: Moist Lips: Normal Appearing Neck: Normal ROM Respiratory: No Accessory Muscle Use Extremity: Normal ROM ED Course And Treatment O2 Sat by Pulse Oximetry: 97 Reevaluation Time: 00:05 Reassessment Condition: Improved (patient continues to sleep quietly. He has been provided with a diet tray which he ate well.) Disposition - Disposition Disposition Time: 00:50 Condition: IMPROVED - Clinical Impression Clinical Impression: Alcohol intoxication - Scribe Statement The provider has reviewed the documentation as recorded by the Augustaibjackelyn Bañuelos All medical record entries made by the Scribe were at my direction and personally dictated by me. I have reviewed the chart and agree that the record accurately reflects my personal performance of the history, physical exam, medical decision making, and the department course for this patient. I have also personally directed, reviewed, and agree with the discharge instructions and disposition. Physician Patient Turnover Patient Signed Over To: Cleve Cho Handoff Comments: pending sobriety
[2016-08-28 20:11] VITALS: RESP 18
[2016-08-29 04:57] VITALS: BP 164/97; PULSE 80; TEMP 98.1; O2SAT 97
== END 2016-08-29 05:26 | disposition home or self-care (01) ==
LOC: C.ER 16:05 → C.9OBSV 16:46
PROVIDERS: ADMIT Emergency Medicine; ATTEND Emergency Medicine
DX: F10.229 Alcohol dependence with intoxication, unspecified (principal); F41.9 Anxiety disorder, unspecified; J45.909 Unspecified asthma, uncomplicated; I10 Essential (primary) hypertension; F20.9 Schizophrenia, unspecified
CPT/HCPCS: 99285; G0378

== ENCOUNTER 2016-08-30 19:08 | Observation (INO) | payer MEDICARE, OTHER ==
[2016-08-30 19:08] VITALS: BMI 30.4
--- NOTE | 2016-08-30 21:54 | C.PDOC ---
History Of Present Illness Patient presents to the ER with acute ETOH intoxication. Patient is well known to ER for ETOH intoxication. Has no physical complaints at this time. Time Seen by Provider: 08/30/16 21:52 Chief Complaint (Nursing): Substance Abuse History Per: Patient History/Exam Limitations: no limitations Onset/Duration Of Symptoms: Hrs Current Symptoms Are (Timing): Still Present Suicide/Self Injury Attempted (Context): None Modifying Factor(s): Alcohol Severity: None Pain Scale Rating Of: 0 Associated Symptoms: denies: Depression, Suicidal Thoughts, Suicidal Plan Recent travel outside of the [place]: No Past Medical History Reviewed: Historical Data, Nursing Documentation, Vital Signs Vital Signs: Last Vital Signs Temp 97.9 F 08/30/16 20:05 Pulse 80 08/30/16 20:05 Resp 16 08/30/16 20:05 BP 130/70 08/30/16 20:05 Pulse Ox 96 08/31/16 01:26 - Medical History PMH: Anxiety, Asthma, Back Problems, Bipolar Disorder, Depression, Gastritis, HTN, Schizophrenia, Chronic Pain (Back Pain) Surgical History: Hernia Repair, Tonsillectomy - [facility] Procedures DETOXIFICATION SERVICES FOR SUBSTANCE ABUSE TREATMENT (12/26/15) Family History: States: No Known Family Hx - Social History Hx Tobacco Use: No Hx Alcohol Use: Yes Hx Substance Use: No - Immunization History Hx Tetanus Toxoid Vaccination: No Hx Influenza Vaccination: No Hx Pneumococcal Vaccination: No Review Of Systems Constitutional: Negative for: Fever, Chills Gastrointestinal: Negative for: Nausea, Vomiting Neurological: Positive for: Other (ETOH intoxication) Physical Exam - Physical Exam Appears: Non-toxic, Other (ETOH on breath) Skin: Warm, Dry Oral Mucosa: Moist Chest: Symmetrical, No Tenderness Cardiovascular: Rhythm Regular, No Murmur Respiratory: No Rales, No Rhonchi, No Wheezing Gastrointestinal/Abdominal: Soft, No Tenderness Neurological/Psych: Oriented x3 ED Course And Treatment O2 Sat by Pulse Oximetry: 96 (Room air) Pulse Ox Interpretation: Normal Reevaluation Time: 02:08 Reassessment Condition: Improved ED OBSERVATION Discharge: Yes Date of observation admission: 08/30/16 Time of observation admission: 21:54 - Observation admission statement Patient is being placed in observation because:: acute alcohol intoxication - Goals of Observation Goals of observation are:: sobriety - Progress Note Progress Note: 08/30/16 21:54 vitals stable 08/30/16 23:54 no complaints 08/31/16 02:08 ambulating without difficulty Disposition Counseled Patient/Family Regarding: Studies Performed, Diagnosis, Need For Followup - Disposition Disposition: HOME/ ROUTINE Disposition Time: 21:53 Condition: FAIR - Clinical Impression Clinical Impression: Alcohol intoxication - Scribe Statement The provider has reviewed the documentation as recorded by the Scribjackelyn Huang All medical record entries made by the Augustaibjackelyn were at my direction and personally dictated by me. I have reviewed the chart and agree that the record accurately reflects my personal performance of the history, physical exam, medical decision making, and the department course for this patient. I have also personally directed, reviewed, and agree with the discharge instructions and disposition.
[2016-08-31 02:15] VITALS: BP 126/87; PULSE 88; RESP 20; TEMP 97.8; O2SAT 98
== END 2016-08-31 02:08 | disposition home or self-care (01) ==
LOC: C.ER 19:08 → C.9OBSV 21:54
PROVIDERS: ADMIT Emergency Medicine; ATTEND Emergency Medicine
DX: F10.229 Alcohol dependence with intoxication, unspecified (principal); J45.909 Unspecified asthma, uncomplicated; F41.8 Other specified anxiety disorders; F31.9 Bipolar disorder, unspecified; F20.89 Other schizophrenia
CPT/HCPCS: 82948; 99284; G0378

== ENCOUNTER 2016-09-01 17:37 | Observation (INO) | payer MEDICARE, OTHER ==
[2016-09-01 17:37] VITALS: BMI 30.4
[2016-09-01 17:55] VITALS: BP 147/93; PULSE 100; RESP 18; TEMP 97.9; O2SAT 99
--- NOTE | 2016-09-01 19:31 | C.PDOC ---
History Of Present Illness 70 y/o male presents to ED for public intoxication. Patient denies any injury, trauma, or pain. No other complaints at this time. Admits to EtOH use today. Time Seen by Provider: 09/01/16 17:38 Chief Complaint (Nursing): Substance Abuse History Per: Patient History/Exam Limitations: no limitations Onset/Duration Of Symptoms: Persistent Current Symptoms Are (Timing): Still Present Modifying Factor(s): Alcohol Associated Symptoms: denies: Suicidal Thoughts, Suicidal Plan Recent travel outside of the [place]: No Past Medical History Reviewed: Historical Data, Nursing Documentation, Vital Signs Vital Signs: Last Vital Signs Temp 97.9 F 09/01/16 17:55 Pulse 100 H 09/01/16 17:55 Resp 18 09/01/16 17:55 BP 147/93 H 09/01/16 17:55 Pulse Ox 99 09/01/16 19:54 - Medical History PMH: Anxiety, Asthma, Back Problems, Bipolar Disorder, Depression, Gastritis, HTN, Schizophrenia, Chronic Pain (Back Pain) Surgical History: Hernia Repair, Tonsillectomy - [facility] Procedures DETOXIFICATION SERVICES FOR SUBSTANCE ABUSE TREATMENT (12/26/15) Family History: States: Unknown Family Hx - Social History Hx Tobacco Use: No Hx Alcohol Use: Yes Hx Substance Use: No - Immunization History Hx Tetanus Toxoid Vaccination: No Hx Influenza Vaccination: No Hx Pneumococcal Vaccination: No Review Of Systems Except As Marked, All Systems Reviewed And Found Negative. Constitutional: Negative for: Fever, Chills Cardiovascular: Negative for: Chest Pain Respiratory: Negative for: Cough, Shortness of Breath, Wheezing Gastrointestinal: Negative for: Nausea, Vomiting Skin: Negative for: Rash Psych: Negative for: Withdrawal Physical Exam - Physical Exam Appears: Non-toxic, Unkempt, Other (dissheveled, incontinent of stool and urine) Skin: Warm, Dry Head: Atraumatic, Normacephalic Chest: Symmetrical Cardiovascular: Rhythm Regular Respiratory: No Rales, No Rhonchi, No Wheezing Gastrointestinal/Abdominal: Soft, No Tenderness Back: Normal Inspection Extremity: Normal ROM, Capillary Refill (< 2 sec. ) Neurological/Psych: Oriented x3, Normal Speech, Normal Cognition ED Course And Treatment O2 Sat by Pulse Oximetry: 99 (RA) Pulse Ox Interpretation: Normal Reevaluation Time: 22:29 Reassessment Condition: Improved (clinically sober) Medical Decision Making Medical Decision Making: persistent alcoholism/homeless/malingering. ED OBSERVATION Date of observation admission: 09/01/16 Time of observation admission: 18:18 - Observation admission statement Patient is being placed in observation because:: acute etoh intoxication - Goals of Observation Goals of observation are:: clinical sobriety Disposition Doctor Will See Patient In The: Office Counseled Patient/Family Regarding: Studies Performed, Diagnosis - Disposition Disposition: HOME/ ROUTINE Disposition Time: 22:30 Condition: GOOD - Clinical Impression Clinical Impression: Homelessness, Alcohol abuse, Malingering - Scribe Statement The provider has reviewed the documentation as recorded by the Omar Green Provider Scribe Attestation: All medical record entries made by the Omar were at my direction and personally dictated by me. I have reviewed the chart and agree that the record accurately reflects my personal performance of the history, physical exam, medical decision making, and the department course for this patient. I have also personally directed, reviewed, and agree with the discharge instructions and disposition.
== END 2016-09-01 22:29 | disposition home or self-care (01) ==
LOC: C.ER 17:37 → C.9OBSV 18:18
PROVIDERS: ADMIT Internal Medicine; ATTEND Internal Medicine
DX: F10.229 Alcohol dependence with intoxication, unspecified (principal); F41.8 Other specified anxiety disorders; F31.9 Bipolar disorder, unspecified; I10 Essential (primary) hypertension; F20.9 Schizophrenia, unspecified; M54.9 Dorsalgia, unspecified
CPT/HCPCS: 99284; G0378

== ENCOUNTER 2016-09-02 13:07 | Observation (INO) | payer MEDICARE, OTHER ==
[2016-09-02 13:08] VITALS: BMI 30.4
[2016-09-02 13:14] VITALS: BP 104/67; PULSE 104; RESP 20; TEMP 98.2; O2SAT 98
--- NOTE | 2016-09-02 14:19 | C.PDOC ---
History Of Present Illness 70-year-old homeless male with PMHx that includes EtOH Abuse, BIBA for evaluation of alcohol intoxication. Patient also states he is very itchy, and hungry. He has been seen in ED for similar complaints multiple times in the past. Time Seen by Provider: 09/02/16 13:44 Chief Complaint (Nursing): Medical Clearance History Per: Patient, EMS History/Exam Limitations: intoxication Onset/Duration Of Symptoms: Persistent Current Symptoms Are (Timing): Still Present Severity: Mild Past Medical History Reviewed: Historical Data, Nursing Documentation, Vital Signs Vital Signs: Last Vital Signs Temp 98.2 F 09/02/16 13:11 Pulse 104 H 09/02/16 13:11 Resp 20 09/02/16 13:11 BP 104/67 09/02/16 13:11 Pulse Ox 98 09/02/16 18:08 - Medical History PMH: Anxiety, Asthma, Back Problems, Bipolar Disorder, Depression, Gastritis, HTN, Schizophrenia, Chronic Pain (Back Pain) Surgical History: Hernia Repair, Tonsillectomy - [facility] Procedures DETOXIFICATION SERVICES FOR SUBSTANCE ABUSE TREATMENT (12/26/15) Family History: States: No Known Family Hx - Social History Hx Tobacco Use: No Hx Alcohol Use: Yes Hx Substance Use: No - Immunization History Hx Tetanus Toxoid Vaccination: No Hx Influenza Vaccination: No Hx Pneumococcal Vaccination: No Review Of Systems Except As Marked, All Systems Reviewed And Found Negative. Cardiovascular: Negative for: Chest Pain, Palpitations Respiratory: Negative for: Shortness of Breath Gastrointestinal: Negative for: Nausea, Vomiting, Abdominal Pain, Diarrhea Skin: Positive for: Other (pruritis ) Psych: Positive for: Other (alcohol intoxication). Negative for: Suicidal ideation Physical Exam - Physical Exam Appears: Non-toxic, No Acute Distress, Unkempt, Other (awake, alert and cooperative. malodorous. ) Skin: Other (diffuse scratch hoover, scattered areas of erythema noted on hands/ arms/torso) Head: Atraumatic, Normacephalic Eye(s): bilateral: Normal Inspection Oral Mucosa: Moist Cardiovascular: Rhythm Regular Respiratory: Normal Breath Sounds, No Rales, No Rhonchi, No Wheezing Extremity: Normal ROM Neurological/Psych: Other (awake, alert, intoxicated, moving all 4 extremities spontaneously ) ED Course And Treatment O2 Sat by Pulse Oximetry: 98 (RA) Pulse Ox Interpretation: Normal Progress Note: Accucheck ordered and reviewed. Patient given PO benadryl. Patient placed in ED observation pending sobriety. 16:15- Patient awake & alert , in no current distress. pending sobriety. Reevaluation Time: 18:15 Reassessment Condition: Improved (Patient currently AAOx3, and ambulating normally in the ED. He is clinically sober at this time, will discharge. Patient instructed to follow up with PMD/clinic in 1-2 days.) Disposition Counseled Patient/Family Regarding: Studies Performed, Diagnosis, Need For Followup, Rx Given - Disposition Disposition: HOME/ ROUTINE Disposition Time: 18:15 Condition: STABLE - POA Present On Arrival: None - Clinical Impression Clinical Impression: Pruritic rash, Alcohol intoxication - Scribe Statement The provider has reviewed the documentation as recorded by the Omar Bañuelos All medical record entries made by the Omar were at my direction and personally dictated by me. I have reviewed the chart and agree that the record accurately reflects my personal performance of the history, physical exam, medical decision making, and the department course for this patient. I have also personally directed, reviewed, and agree with the discharge instructions and disposition.
== END 2016-09-02 18:06 | disposition home or self-care (01) ==
LOC: C.ER 13:07 → C.9OBSV 14:07
PROVIDERS: ADMIT Emergency Medicine; ATTEND Emergency Medicine
DX: F10.229 Alcohol dependence with intoxication, unspecified (principal); F41.8 Other specified anxiety disorders; F31.9 Bipolar disorder, unspecified; I10 Essential (primary) hypertension; J45.909 Unspecified asthma, uncomplicated; F20.9 Schizophrenia, unspecified; M54.9 Dorsalgia, unspecified
CPT/HCPCS: 99281; G0378

== ENCOUNTER 2016-09-02 23:12 | Emergency (ER) | payer MEDICARE ==
[2016-09-02 23:12] VITALS: BMI 30.4
[2016-09-02 23:16] VITALS: RESP 16; TEMP 98.4
--- NOTE | 2016-09-03 00:44 | C.PDOC ---
History Of Present Illness Patient presents to the ED requesting a bed to sleep. Patient admits to drink alcohol prior to arrival. Patient is well known in the ED for alcohol intoxication. Patient is homeless. Patient denies fever, chills, nausea, vomiting, suicidal ideation, homicidal ideation, or any other complaints at this time. Time Seen by Provider: 09/03/16 00:43 Chief Complaint (Nursing): Substance Abuse History Per: Patient History/Exam Limitations: intoxication Onset/Duration Of Symptoms: Other Current Symptoms Are (Timing): Still Present Suicide/Self Injury Attempted (Context): None Modifying Factor(s): Alcohol Severity: None Pain Scale Rating Of: 0 Recent travel outside of the [place]: No Additional History Per: Prior Records Past Medical History Reviewed: Historical Data, Nursing Documentation, Vital Signs Vital Signs: Last Vital Signs Temp 98.4 F 09/02/16 23:14 Pulse 99 H 09/02/16 23:14 Resp 16 09/02/16 23:14 BP 140/96 H 09/02/16 23:14 Pulse Ox 99 09/03/16 04:42 - Medical History PMH: Anxiety, Asthma, Back Problems, Bipolar Disorder, Depression, Gastritis, HTN, Schizophrenia, Chronic Pain (Back Pain) Surgical History: Hernia Repair, Tonsillectomy - [facility] Procedures DETOXIFICATION SERVICES FOR SUBSTANCE ABUSE TREATMENT (12/26/15) Family History: States: Unknown Family Hx - Social History Hx Tobacco Use: No Hx Alcohol Use: Yes Hx Substance Use: No - Immunization History Hx Tetanus Toxoid Vaccination: No Hx Influenza Vaccination: No Hx Pneumococcal Vaccination: No Review Of Systems Constitutional: Positive for: Other (intoxication). Negative for: Fever, Chills Gastrointestinal: Negative for: Nausea, Vomiting Psych: Negative for: Suicidal ideation Physical Exam - Physical Exam Appears: Non-toxic, No Acute Distress, Other (intoxicated) Skin: Warm, Dry Head: Atraumatic, Normacephalic Neck: Supple Chest: Symmetrical Cardiovascular: Rhythm Regular Respiratory: No Rales, No Rhonchi, No Wheezing Extremity: Bilateral: Atraumatic ED Course And Treatment O2 Sat by Pulse Oximetry: 99 (room air) Pulse Ox Interpretation: Normal Reevaluation Time: 05:36 Reassessment Condition: Improved ED OBSERVATION Discharge: Yes - Progress Note Progress Note: 09/03/16 04:45 vitals stable 09/03/16 04:41 no complaints Disposition Counseled Patient/Family Regarding: Studies Performed, Diagnosis, Need For Followup - Disposition Referrals: [facility] [Outside] Disposition: HOME/ ROUTINE Disposition Time: 00:43 Condition: FAIR Instructions: Alcohol Intoxication (DC) - Clinical Impression Clinical Impression: Alcohol abuse with intoxication - Scribe Statement The provider has reviewed the documentation as recorded by the Scribe Jhoana Leiva Provider Attestation: All medical record entries made by the Scribe were at my direction and personally dictated by me. I have reviewed the chart and agree that the record accurately reflects my personal performance of the history, physical exam, medical decision making, and the department course for this patient. I have also personally directed, reviewed, and agree with the discharge instructions and disposition.
[2016-09-03 06:24] VITALS: BP 130/72; PULSE 72; O2SAT 96
== END 2016-09-03 05:45 | disposition home or self-care (01) ==
LOC: C.ER 23:12
DX: F10.10 Alcohol abuse, uncomplicated (principal); Y90.9 Presence of alcohol in blood, level not specified; Z59.0 Homelessness

== ENCOUNTER 2016-09-03 12:50 | Observation (INO) | payer MEDICARE, SELFPAY ==
[2016-09-03 12:50] VITALS: BMI 30.4
--- NOTE | 2016-09-03 13:59 | C.PDOC ---
History Of Present Illness 70-year-old homeless male, PMHx includes EtOH Abuse, presents to the emergency department for public intoxication. Patient has been seen in ED for same complaint multiple times in the past. Time Seen by Provider: 09/03/16 13:03 Chief Complaint (Nursing): Substance Abuse History Per: EMS History/Exam Limitations: intoxication Past Medical History Reviewed: Historical Data, Nursing Documentation, Vital Signs Vital Signs: Last Vital Signs Temp 98 F 09/03/16 22:01 Pulse 87 09/03/16 22:01 Resp 20 09/03/16 22:01 BP 101/70 09/03/16 22:01 Pulse Ox 98 09/03/16 22:01 - Medical History PMH: Anxiety, Asthma, Back Problems, Bipolar Disorder, Depression, Gastritis, HTN, Schizophrenia, Chronic Pain (Back Pain) Surgical History: Hernia Repair, Tonsillectomy - [facility] Procedures DETOXIFICATION SERVICES FOR SUBSTANCE ABUSE TREATMENT (12/26/15) Family History: States: Unknown Family Hx - Social History Hx Tobacco Use: No Hx Alcohol Use: Yes Hx Substance Use: No - Immunization History Hx Tetanus Toxoid Vaccination: No Hx Influenza Vaccination: No Hx Pneumococcal Vaccination: No Review Of Systems Constitutional: Negative for: Fever Cardiovascular: Negative for: Chest Pain Respiratory: Negative for: Shortness of Breath Physical Exam - Physical Exam Appears: Non-toxic, No Acute Distress, Unkempt Head: Atraumatic Nose: No Epistaxis Lips: No Swelling Neck: Normal ROM Cardiovascular: Rhythm Regular Respiratory: No Accessory Muscle Use Gastrointestinal/Abdominal: No Tenderness Extremity: No Deformity Neurological/Psych: Oriented x3, Other (no focal deficits) ED Course And Treatment O2 Sat by Pulse Oximetry: 95 ED OBSERVATION Discharge: Yes Date of observation admission: 09/03/16 Time of observation admission: 13:49 - Observation admission statement Patient is being placed in observation because:: ALCOHOL INTOXICATION - Progress Note Progress Note: 09/03/16 21:53 pt now clinically sober, ambulatory w steady gait. Disposition - Disposition Disposition: HOME/ ROUTINE Disposition Time: 21:52 Condition: STABLE - Clinical Impression Clinical Impression: Intoxication, Homelessness - Scribe Statement The provider has reviewed the documentation as recorded by the Omar Bañuelos All medical record entries made by the Scribe were at my direction and personally dictated by me. I have reviewed the chart and agree that the record accurately reflects my personal performance of the history, physical exam, medical decision making, and the department course for this patient. I have also personally directed, reviewed, and agree with the discharge instructions and disposition.
[2016-09-03 22:02] VITALS: BP 101/70; PULSE 87; RESP 20; TEMP 98
[2016-09-04 12:13] VITALS: O2SAT 95
== END 2016-09-03 21:53 | disposition home or self-care (01) ==
LOC: C.ER 12:50 → C.9OBSV 13:26
PROVIDERS: ADMIT Emergency Medicine; ATTEND Emergency Medicine
DX: F10.129 Alcohol abuse with intoxication, unspecified (principal); Y90.9 Presence of alcohol in blood, level not specified; Z59.0 Homelessness
CPT/HCPCS: 82948; G0378

== ENCOUNTER 2016-09-04 12:55 | Observation (INO) | payer MEDICARE, SELFPAY ==
[2016-09-04 12:56] VITALS: BMI 30.4
[2016-09-04 13:20] VITALS: RESP 18
--- NOTE | 2016-09-04 13:30 | C.PDOC ---
History Of Present Illness 70 y/o male brought in by ambulance for public intoxication. Patient is well known to ER staff with multiple similar past presentations. Patient is covered in urine arrival, with abrasion to mid forehead. Patient states he fell last night. Denies any pain or other complaints on arrival. Patient brought straight from stretcher to bathroom for shower. Time Seen by Provider: 09/04/16 13:09 Chief Complaint (Nursing): Substance Abuse History Per: Patient History/Exam Limitations: no limitations Onset/Duration Of Symptoms: Persistent Current Symptoms Are (Timing): Still Present Modifying Factor(s): Alcohol Associated Symptoms: denies: Suicidal Thoughts, Suicidal Plan Recent travel outside of the [place]: No Past Medical History Reviewed: Historical Data, Nursing Documentation, Vital Signs Vital Signs: Last Vital Signs Temp 98.6 F 09/04/16 18:46 Pulse 78 09/04/16 18:46 Resp 18 09/04/16 18:46 BP 117/76 09/04/16 18:46 Pulse Ox 97 09/04/16 23:23 - Medical History PMH: Anxiety, Asthma, Back Problems, Bipolar Disorder, Depression, Gastritis, HTN, Schizophrenia, Chronic Pain (Back Pain) Surgical History: Hernia Repair, Tonsillectomy - [facility] Procedures DETOXIFICATION SERVICES FOR SUBSTANCE ABUSE TREATMENT (12/26/15) Family History: States: Unknown Family Hx - Social History Hx Tobacco Use: No Hx Alcohol Use: Yes Hx Substance Use: No - Immunization History Hx Tetanus Toxoid Vaccination: No Hx Influenza Vaccination: No Hx Pneumococcal Vaccination: No Review Of Systems Except As Marked, All Systems Reviewed And Found Negative. Constitutional: Negative for: Fever, Chills Cardiovascular: Negative for: Chest Pain Respiratory: Negative for: Cough, Shortness of Breath Gastrointestinal: Negative for: Vomiting Skin: Negative for: Rash Neurological: Positive for: Other (abrasion mid forehead) Physical Exam - Physical Exam Appears: No Acute Distress, Unkempt, Other (covered in urine, malodorous, awake , alert) Skin: Warm, Dry Head: Normacephalic, Abrasion (small, round abrasion to mid-forehead, +purulent drainage), No Laceration Eye(s): bilateral: Normal Inspection Neck: No Midline Cervical Tenderness, No Paracervical Tenderness, Supple Chest: Symmetrical Cardiovascular: Rhythm Regular Respiratory: Normal Breath Sounds, No Rales, No Rhonchi, No Wheezing Extremity: Normal ROM Neurological/Psych: Oriented x3 ED Course And Treatment O2 Sat by Pulse Oximetry: 97 (RA) Pulse Ox Interpretation: Normal Progress Note: 11:20 patient resting comfortably. Has tolerated several sandwiches and juice cups. Disposition - Disposition Disposition Time: 01:00 Condition: STABLE - Clinical Impression Clinical Impression: Alcohol intoxication - Scribe Statement The provider has reviewed the documentation as recorded by the Scribe Reji Green All medical record entries made by the Scribe were at my direction and personally dictated by me. I have reviewed the chart and agree that the record accurately reflects my personal performance of the history, physical exam, medical decision making, and the department course for this patient. I have also personally directed, reviewed, and agree with the discharge instructions and disposition. Physician Patient Turnover Patient Signed Over To: Cleve Cho Handoff Comments: pending sobriety
[2016-09-04 18:48] VITALS: BP 117/76; PULSE 78; TEMP 98.6
[2016-09-04 23:24] VITALS: O2SAT 97
== END 2016-09-05 06:57 | disposition home or self-care (01) ==
LOC: C.ER 12:55 → C.9OBSV 14:36
PROVIDERS: ADMIT Emergency Medicine; ATTEND Emergency Medicine
DX: F10.129 Alcohol abuse with intoxication, unspecified (principal); J45.909 Unspecified asthma, uncomplicated; I10 Essential (primary) hypertension

== ENCOUNTER 2016-09-07 17:41 | Observation (INO) | payer MEDICARE, SELFPAY ==
--- NOTE | 2016-09-07 17:48 | C.PDOC ---
History Of Present Illness Patient is a 70 y/o male that is brought to ED by ambulance for alcohol intoxication. Patient is well known to ED for multiple prior visits for public intoxication. Otherwise, denies any physical complaints at this time. Time Seen by Provider: 09/07/16 17:44 Chief Complaint (Nursing): Substance Abuse History Per: Patient History/Exam Limitations: intoxication Onset/Duration Of Symptoms: Gradual Current Symptoms Are (Timing): Still Present Suicide/Self Injury Attempted (Context): None Modifying Factor(s): Alcohol Severity: None Pain Scale Rating Of: 0 Associated Symptoms: denies: Suicidal Thoughts Involuntary Hold By: None Recent travel outside of the [place]: No Additional History Per: Prior Records Past Medical History Reviewed: Historical Data, Nursing Documentation, Vital Signs Vital Signs: Last Vital Signs Temp 98.4 F 09/07/16 22:50 Pulse 82 09/07/16 22:50 Resp 18 09/07/16 22:50 BP 115/74 09/07/16 22:50 Pulse Ox 96 09/07/16 22:50 - Medical History PMH: Anxiety, Asthma, Back Problems, Bipolar Disorder, Depression, Gastritis, HTN, Schizophrenia, Chronic Pain (Back Pain) Surgical History: Hernia Repair, Tonsillectomy - [facility] Procedures DETOXIFICATION SERVICES FOR SUBSTANCE ABUSE TREATMENT (12/26/15) Family History: States: Unknown Family Hx - Social History Hx Tobacco Use: No Hx Alcohol Use: Yes Hx Substance Use: No - Immunization History Hx Tetanus Toxoid Vaccination: No Hx Influenza Vaccination: No Hx Pneumococcal Vaccination: No Review Of Systems Except As Marked, All Systems Reviewed And Found Negative. Constitutional: Negative for: Fever, Chills Cardiovascular: Negative for: Chest Pain, Palpitations, Light Headedness Respiratory: Negative for: Cough, Shortness of Breath Gastrointestinal: Negative for: Nausea, Vomiting, Abdominal Pain Neurological: Negative for: Weakness, Numbness, Headache, Dizziness Physical Exam - Physical Exam Appears: Non-toxic, No Acute Distress, Other (EtOH on breath) Skin: Normal Color, Warm, Dry Head: Atraumatic, Normacephalic Eye(s): bilateral: Normal Inspection, EOMI Neck: Normal ROM, Supple Chest: Symmetrical Cardiovascular: Rhythm Regular Respiratory: Normal Breath Sounds, No Rales, No Rhonchi, No Wheezing Gastrointestinal/Abdominal: Soft, No Tenderness Extremity: Normal ROM Neurological/Psych: Oriented x3, Normal Speech ED OBSERVATION Date of observation admission: 09/07/16 Time of observation admission: 17:50 - Observation admission statement Patient is being placed in observation because:: intoxication - Goals of Observation Goals of observation are:: Sobriety - Progress Note Progress Note: 09/07/16 17:51 Pt is resting comfortably in bed, no distress noted Disposition - Disposition Disposition Time: 00:30 Condition: STABLE - Clinical Impression Clinical Impression: Alcohol intoxication - Scribe Statement The provider has reviewed the documentation as recorded by the Omar Leiva Provider Attestation: All medical record entries made by the Omar were at my direction and personally dictated by me. I have reviewed the chart and agree that the record accurately reflects my personal performance of the history, physical exam, medical decision making, and the department course for this patient. I have also personally directed, reviewed, and agree with the discharge instructions and disposition. Physician Patient Turnover Patient Signed Over To: Jb Riddle Handoff Comments: pending sobriety
[2016-09-07 17:55] VITALS: RESP 18; BMI 23.3
[2016-09-07] MEDS ORDERED: Bacitracin 500 Units/gm Oint Foilpak UD ONE (19:04)
[2016-09-08 05:56] VITALS: BP 118/76; PULSE 87; TEMP 98.5; O2SAT 96
== END 2016-09-08 05:01 | disposition home or self-care (01) ==
LOC: C.ER 17:41 → C.9OBSV 18:09
PROVIDERS: ADMIT Emergency Medicine; ATTEND Emergency Medicine
DX: F10.120 Alcohol abuse with intoxication, uncomplicated (principal); Y90.9 Presence of alcohol in blood, level not specified; I10 Essential (primary) hypertension; J45.909 Unspecified asthma, uncomplicated; F20.9 Schizophrenia, unspecified
CPT/HCPCS: G0378 ×2

== ENCOUNTER 2016-09-09 16:41 | Observation (INO) | payer MEDICARE, SELFPAY ==
[2016-09-09 16:41] VITALS: BMI 23.3
[2016-09-09 17:34] VITALS: TEMP 98.3
--- NOTE | 2016-09-09 20:08 | C.PDOC ---
History Of Present Illness Patient is a 70 year old male brought in by EMS for a complaint of public intoxication. Patient has no physical complaints at this time. Chief Complaint (Nursing): Substance Abuse History Per: Patient History/Exam Limitations: no limitations Onset/Duration Of Symptoms: Hrs Current Symptoms Are (Timing): Still Present Suicide/Self Injury Attempted (Context): None Modifying Factor(s): Alcohol Associated Symptoms: denies: Depression, Suicidal Thoughts, Suicidal Plan Involuntary Hold By: None Recent travel outside of the [place]: No Past Medical History Reviewed: Historical Data, Nursing Documentation, Vital Signs Vital Signs: Last Vital Signs Temp 98.3 F 09/09/16 17:32 Pulse 80 09/10/16 00:00 Resp 20 09/10/16 00:00 BP 120/70 09/10/16 00:00 Pulse Ox 100 09/10/16 00:00 - Medical History PMH: Anxiety, Asthma, Back Problems, Bipolar Disorder, Depression, Gastritis, HTN, Schizophrenia, Chronic Pain (Back Pain) Surgical History: Hernia Repair, Tonsillectomy - [facility] Procedures DETOXIFICATION SERVICES FOR SUBSTANCE ABUSE TREATMENT (12/26/15) Family History: States: Unknown Family Hx - Social History Hx Tobacco Use: No Hx Alcohol Use: Yes Hx Substance Use: No - Immunization History Hx Tetanus Toxoid Vaccination: No Hx Influenza Vaccination: No Hx Pneumococcal Vaccination: No Review Of Systems Constitutional: Negative for: Fever, Chills Gastrointestinal: Negative for: Nausea, Vomiting, Diarrhea Neurological: Positive for: Other (ETOH intoxication) Physical Exam - Physical Exam Appears: Well, Non-toxic, Other (ETOH on breath) Skin: Normal Color, Warm, Dry Head: Atraumatic, Normacephalic Eye(s): bilateral: Normal Inspection, EOMI Oral Mucosa: Moist Chest: Symmetrical, No Tenderness Cardiovascular: Rhythm Regular, No Murmur Respiratory: Normal Breath Sounds, No Rales, No Rhonchi, No Wheezing Gastrointestinal/Abdominal: Soft, No Tenderness Neurological/Psych: Oriented x3, Normal Speech, Normal Cognition ED Course And Treatment O2 Sat by Pulse Oximetry: 97 (Room air) Pulse Ox Interpretation: Normal ED OBSERVATION Date of observation admission: 09/09/16 Time of observation admission: 20:19 - Observation admission statement Patient is being placed in observation because:: Acute ETOH intoxication - Goals of Observation Goals of observation are:: Sobriety Disposition Counseled Patient/Family Regarding: Diagnosis - Disposition Disposition: HOME/ ROUTINE Disposition Time: 05:20 Condition: STABLE - POA Present On Arrival: None - Clinical Impression Clinical Impression: Alcohol abuse - Scribe Statement The provider has reviewed the documentation as recorded by the Scribe Provider Attestation: Chalino Huang All medical record entries made by the Scribe were at my direction and personally dictated by me. I have reviewed the chart and agree that the record accurately reflects my personal performance of the history, physical exam, medical decision making, and the department course for this patient. I have also personally directed, reviewed, and agree with the discharge instructions and disposition.
[2016-09-10 03:34] VITALS: RESP 20
[2016-09-10 05:21] VITALS: O2SAT 97
[2016-09-10 05:27] VITALS: BP 141/80; PULSE 87
== END 2016-09-10 05:20 | disposition home or self-care (01) ==
LOC: C.ER 16:41 → C.9OBSV 21:37
PROVIDERS: ADMIT Emergency Medicine; ATTEND Emergency Medicine
DX: F10.10 Alcohol abuse, uncomplicated (principal); F31.9 Bipolar disorder, unspecified; J45.909 Unspecified asthma, uncomplicated; I10 Essential (primary) hypertension; Y90.9 Presence of alcohol in blood, level not specified
CPT/HCPCS: 99284; G0378

== ENCOUNTER 2016-09-10 17:36 | Observation (INO) | payer MEDICARE ==
[2016-09-10 17:37] VITALS: BMI 23.3
[2016-09-10 18:11] VITALS: TEMP 98.4
--- NOTE | 2016-09-10 19:44 | C.PDOC ---
History Of Present Illness Patient presents to the ED requesting a bed to sleep. Patient admits to drink alcohol prior to arrival. Patient is well known in the ED for alcohol intoxication. Patient is homeless. Patient denies fever, chills, nausea, vomiting, suicidal ideation, homicidal ideation, or any other complaints at this time. Time Seen by Provider: 09/10/16 19:43 Chief Complaint (Nursing): Substance Abuse History Per: Patient History/Exam Limitations: intoxication Onset/Duration Of Symptoms: Hrs Current Symptoms Are (Timing): Still Present Suicide/Self Injury Attempted (Context): None Modifying Factor(s): Alcohol Severity: Mild Pain Scale Rating Of: 0 Associated Symptoms: denies: Suicidal Thoughts, Suicidal Plan Involuntary Hold By: None Recent travel outside of the [place]: No Additional History Per: Patient Past Medical History Reviewed: Historical Data, Nursing Documentation, Vital Signs Vital Signs: Last Vital Signs Temp 98.4 F 09/10/16 18:09 Pulse 85 09/11/16 05:18 Resp 17 09/11/16 05:18 BP 124/75 09/11/16 05:18 Pulse Ox 99 09/11/16 05:18 - Medical History PMH: Anxiety, Asthma, Back Problems, Bipolar Disorder, Depression, Gastritis, HTN, Schizophrenia, Chronic Pain (Back Pain) Surgical History: Hernia Repair, Tonsillectomy - [facility] Procedures DETOXIFICATION SERVICES FOR SUBSTANCE ABUSE TREATMENT (12/26/15) Family History: States: Unknown Family Hx - Social History Hx Tobacco Use: No Hx Alcohol Use: Yes Hx Substance Use: No - Immunization History Hx Tetanus Toxoid Vaccination: No Hx Influenza Vaccination: No Hx Pneumococcal Vaccination: No Review Of Systems Constitutional: Positive for: Other (ETOH Intoxication). Negative for: Fever, Chills Gastrointestinal: Negative for: Nausea, Vomiting Psych: Negative for: Suicidal ideation, Other (Homicidal ideation) Physical Exam - Physical Exam Appears: Non-toxic, No Acute Distress, Other (ETOH intoxicated. (+) AOB) Skin: Warm, Dry Head: Normacephalic Eye(s): bilateral: Normal Inspection Neck: Trachea Midline, Supple Chest: Symmetrical Cardiovascular: Rhythm Regular Respiratory: No Rales, No Rhonchi, No Wheezing Gastrointestinal/Abdominal: Soft, No Tenderness, No Guarding, No Rebound Neurological/Psych: Oriented x3, Other (Awake and alert) Gait: Unsteady (Due to intoxication) ED Course And Treatment O2 Sat by Pulse Oximetry: 97 (RA) Pulse Ox Interpretation: Normal Reevaluation Time: 05:29 Reassessment Condition: Improved ED OBSERVATION Discharge: Yes Date of observation admission: 09/10/16 Time of observation admission: 19:44 - Observation admission statement Patient is being placed in observation because:: acute alcohol intoxication - Goals of Observation Goals of observation are:: sobriety - Progress Note Progress Note: 09/10/16 19:44 vitals stable, no complaints, wants top sleep 09/11/16 01:59 vitals stable 09/11/16 05:29 ambulating without difficulty Disposition Counseled Patient/Family Regarding: Studies Performed, Diagnosis, Need For Followup - Disposition Disposition: HOME/ ROUTINE Disposition Time: 19:43 Condition: FAIR - Clinical Impression Clinical Impression: Alcohol abuse with intoxication - Scribe Statement The provider has reviewed the documentation as recorded by the Scribe Latosha hagen All medical record entries made by the Scribe were at my direction and personally dictated by me. I have reviewed the chart and agree that the record accurately reflects my personal performance of the history, physical exam, medical decision making, and the department course for this patient. I have also personally directed, reviewed, and agree with the discharge instructions and disposition. Decision To Admit - . Patient Diagnosis: Alcohol abuse with intoxication
[2016-09-11 02:43] VITALS: RESP 17
[2016-09-11 05:20] VITALS: BP 124/75; PULSE 85
[2016-09-11 05:30] VITALS: O2SAT 97
== END 2016-09-11 05:30 | disposition home or self-care (01) ==
LOC: C.ER 17:36 → C.9OBSV 19:44
PROVIDERS: ADMIT Emergency Medicine; ATTEND Emergency Medicine
DX: F10.120 Alcohol abuse with intoxication, uncomplicated (principal); Y90.9 Presence of alcohol in blood, level not specified; Z59.0 Homelessness
CPT/HCPCS: 82948; G0378

== ENCOUNTER 2016-09-12 17:10 | Observation (INO) | payer MEDICARE, OTHER ==
[2016-09-12 17:10] VITALS: BMI 23.3
--- NOTE | 2016-09-12 19:28 | C.PDOC ---
History Of Present Illness 70 y/o male brought in by EMS for public intoxication. Pt with frequent visits to ED for same. No complaints at this time. Time Seen by Provider: 09/12/16 17:38 Chief Complaint (Nursing): Substance Abuse History Per: Patient History/Exam Limitations: no limitations Current Symptoms Are (Timing): Still Present Suicide/Self Injury Attempted (Context): None Modifying Factor(s): Alcohol Severity: Moderate Involuntary Hold By: None Recent travel outside of the [place]: No Past Medical History Reviewed: Historical Data, Nursing Documentation, Vital Signs Vital Signs: Last Vital Signs Temp 98.1 F 09/12/16 23:09 Pulse 88 09/12/16 23:09 Resp 20 09/12/16 23:09 BP 126/73 09/12/16 23:09 Pulse Ox 98 09/12/16 23:09 - Medical History PMH: Anxiety, Asthma, Back Problems, Bipolar Disorder, Depression, Gastritis, HTN, Schizophrenia, Chronic Pain (Back Pain) Surgical History: Hernia Repair, Tonsillectomy - [facility] Procedures DETOXIFICATION SERVICES FOR SUBSTANCE ABUSE TREATMENT (12/26/15) Family History: States: Unknown Family Hx - Social History Hx Tobacco Use: No Hx Alcohol Use: Yes Hx Substance Use: No - Immunization History Hx Tetanus Toxoid Vaccination: No Hx Influenza Vaccination: No Hx Pneumococcal Vaccination: No Review Of Systems Except As Marked, All Systems Reviewed And Found Negative. Physical Exam - Physical Exam Appears: Non-toxic, Unkempt, Other (intoxicated) Skin: Warm, Dry, No Rash Head: Atraumatic, Normacephalic Chest: Symmetrical Cardiovascular: Rhythm Regular Respiratory: Normal Breath Sounds, No Rales, No Rhonchi, No Wheezing Gastrointestinal/Abdominal: Normal Exam, Soft, No Tenderness Extremity: Bilateral: Atraumatic Neurological/Psych: Oriented x3 ED Course And Treatment O2 Sat by Pulse Oximetry: 99 (room air) Pulse Ox Interpretation: Normal Reevaluation Time: 00:30 Reassessment Condition: Improved Medical Decision Making Medical Decision Making: typical etoh abuse Disposition - Disposition Disposition Time: 01:00 Condition: GOOD - Clinical Impression Clinical Impression: Alcohol abuse with intoxication - Scribe Statement The provider has reviewed the documentation as recorded by the Omar Sweeney Provider Attestation: All medical record entries made by the Omar were at my direction and personally dictated by me. I have reviewed the chart and agree that the record accurately reflects my personal performance of the history, physical exam, medical decision making, and the department course for this patient. I have also personally directed, reviewed, and agree with the discharge instructions and disposition. Physician Patient Turnover Patient Signed Over To: Jb Riddle Handoff Comments: dispo in AM when sober
[2016-09-13 05:43] VITALS: BP 129/74; PULSE 82; RESP 20; TEMP 98; O2SAT 96
== END 2016-09-13 05:18 | disposition home or self-care (01) ==
LOC: C.ER 17:10 → C.9OBSV 09-13 00:57
PROVIDERS: ADMIT Emergency Medicine; ATTEND Emergency Medicine
DX: F10.129 Alcohol abuse with intoxication, unspecified (principal); I10 Essential (primary) hypertension; J45.909 Unspecified asthma, uncomplicated; F20.9 Schizophrenia, unspecified; F31.9 Bipolar disorder, unspecified; F41.9 Anxiety disorder, unspecified

== ENCOUNTER 2016-09-14 15:52 | Observation (INO) | payer MEDICARE ==
[2016-09-14 15:55] VITALS: BMI 23.3
--- NOTE | 2016-09-14 16:05 | C.PDOC ---
History Of Present Illness <Donavon Birmingham - Last Filed: 09/14/16 16:06> <Josesito King - Last Filed: 09/15/16 04:51> Patient is a 70 y/o male, with history of EtOH abuse, presents to ED with alcohol intoxication. Patient is well known to ED for multiple prior visits for intoxication. Otherwise, denies any physical complaints at this time. (Donavon Birmingham) History Per: Patient History/Exam Limitations: intoxication Current Symptoms Are (Timing): Still Present Suicide/Self Injury Attempted (Context): None Modifying Factor(s): Alcohol Severity: None Pain Scale Rating Of: 0 Involuntary Hold By: None Recent travel outside of the [place]: No <Donavon Birmingham - Last Filed: 09/14/16 16:06> <Josesito King - Last Filed: 09/15/16 04:51> Time Seen by Provider: 09/14/16 15:56 Past Medical History Reviewed: Historical Data, Nursing Documentation, Vital Signs - Medical History PMH: Anxiety, Asthma, Back Problems, Bipolar Disorder, Depression, Gastritis, HTN, Schizophrenia, Chronic Pain (Back Pain) Surgical History: Hernia Repair, Tonsillectomy Family History: States: Unknown Family Hx - Social History Hx Tobacco Use: No Hx Alcohol Use: Yes Hx Substance Use: No - Immunization History Hx Tetanus Toxoid Vaccination: No Hx Influenza Vaccination: No Hx Pneumococcal Vaccination: No <Donavon Birmingham - Last Filed: 09/14/16 16:06> Review Of Systems Except As Marked, All Systems Reviewed And Found Negative. Constitutional: Negative for: Fever, Chills Cardiovascular: Negative for: Chest Pain Respiratory: Negative for: Shortness of Breath Gastrointestinal: Negative for: Nausea, Vomiting, Abdominal Pain Neurological: Negative for: Headache <Donavon Birmingham - Last Filed: 09/14/16 16:06> Physical Exam - Physical Exam Appears: Non-toxic, No Acute Distress, Other (EtOH on breath) Skin: Warm, Dry Head: Atraumatic, Normacephalic Neck: Normal ROM, Supple Cardiovascular: Rhythm Regular, No Murmur Respiratory: No Accessory Muscle Use, No Rales, No Rhonchi, No Wheezing Gastrointestinal/Abdominal: Soft, No Tenderness Neurological/Psych: Oriented x3, Other (no focal deficits) <Donavon Birmingham - Last Filed: 09/14/16 16:06> ED OBSERVATION Date of observation admission: 09/14/16 Time of observation admission: 16:16 <Donavon Birmingham - Last Filed: 09/14/16 16:06> <Josesito King - Last Filed: 09/15/16 04:51> - Observation admission statement Patient is being placed in observation because:: Intoxication (Donavon Birmingham) - Goals of Observation Goals of observation are:: Sobriety (Donavon Birmingham) - Progress Note Progress Note: 09/14/16 16:17 Patient is resting comfortably, no acute distress. (Donavon Birmingham) Disposition <Donavon Birmingham - Last Filed: 09/14/16 16:06> - Disposition Disposition Time: 04:50 <Josesito King - Last Filed: 09/15/16 04:51> - Disposition Condition: FAIR - Clinical Impression Clinical Impression: Homelessness - Scribe Statement The provider has reviewed the documentation as recorded by the Scribe <Donavon Birmingham - Last Filed: 09/14/16 16:06> <Josesito King - Last Filed: 09/15/16 04:51> - Scribe Statement Meme Leiva (Donavon Birmingham) Provider Attestation: All medical record entries made by the Scribe were at my direction and personally dictated by me. I have reviewed the chart and agree that the record accurately reflects my personal performance of the history, physical exam, medical decision making, and the department course for this patient. I have also personally directed, reviewed, and agree with the discharge instructions and disposition. (Donavon Birmingham) Addendum <Donavon Birmingham - Last Filed: 09/14/16 16:06> <Josesito King - Last Filed: 09/15/16 04:51> Addendum: 09/15/16 04:49 Pt remained stable over night at this time, verbal steady gait Plan dc (Josesito King)
[2016-09-14 16:08] VITALS: O2SAT 97
[2016-09-15 03:30] VITALS: BP 132/85; PULSE 89; RESP 16
== END 2016-09-15 04:52 | disposition home or self-care (01) ==
LOC: C.ER 15:52 → INTOOBSV 16:19 → C.9OBSV 16:19
PROVIDERS: ADMIT Emergency Medicine; ATTEND Emergency Medicine
DX: F10.129 Alcohol abuse with intoxication, unspecified (principal); I10 Essential (primary) hypertension; J45.909 Unspecified asthma, uncomplicated; Z59.0 Homelessness; F31.9 Bipolar disorder, unspecified; Y90.9 Presence of alcohol in blood, level not specified
CPT/HCPCS: 82948; 99283; G0378

== ENCOUNTER 2016-09-19 14:25 | Emergency (ER) | payer MEDICARE ==
[2016-09-19 14:25] VITALS: BMI 23.3
[2016-09-19 15:32] VITALS: O2SAT 99
[2016-09-19 15:39] LABS: BASO % 0.5 % (0.0-2.0); EOS # 0.5 K/uL (0.0-0.7); EOS % 8.1 % (0.0-4.0); HEMATOCRIT 36.3 % (35.0-51.0); LYMPH # 1.2 K/uL (1.0-4.3); LYMPH % 18.5 % (20.0-40.0); MEAN CELL VOLUME 99.1 fL (80.0-94.0); MEAN CORPUSCULAR HEMOGLOBIN 32.8 pg (27.0-31.0); MEAN CORPUSCULAR HGB CONC 33.1 g/dL (33.0-37.0); MEAN PLATELET VOLUME 9.6 fL (7.2-11.7); MONO # 0.7 K/uL (0.0-0.8); MONO % 10.3 % (0.0-10.0); NRBC % 0.1 % (0.0-2.0); RED CELL DISTRIBUTION WIDTH 16.8 % (11.5-14.5); WHITE BLOOD COUNT 6.5 K/uL (4.8-10.8)
[2016-09-19 15:48] LABS: CHLORIDE 102 mmol/L (98-107); POTASSIUM 3.2 mmol/L (3.6-5.2); SODIUM 140 mmol/L (132-148)
--- NOTE | 2016-09-19 15:49 | C.PDOC ---
History Of Present Illness 70 year old patient is brought to the emergency department by ambulance for public alcohol intoxication. Patient was found asleep on the sidewalk. Patient is well known in the emergency department for similar previous visits. His last visit was on 09/14/16. His last head CT was in 01/2016. No labs tests were done in the past 90 days. Patient denies suicidal ideation, homicidal ideation or any other complaints at this time. Time Seen by Provider: 09/19/16 14:30 Chief Complaint (Nursing): Substance Abuse History Per: Patient, EMS History/Exam Limitations: intoxication Onset/Duration Of Symptoms: Other Current Symptoms Are (Timing): Still Present Suicide/Self Injury Attempted (Context): None Modifying Factor(s): Alcohol Severity: None Pain Scale Rating Of: 0 Recent travel outside of the [place]: No Additional History Per: Prior Records Past Medical History Reviewed: Historical Data, Nursing Documentation, Vital Signs Vital Signs: Last Vital Signs Temp 98.7 F 09/19/16 17:05 Pulse 81 09/19/16 17:05 Resp 13 09/19/16 17:05 BP 142/98 H 09/19/16 17:05 Pulse Ox 99 09/19/16 18:04 - Medical History PMH: Anxiety, Asthma, Back Problems, Bipolar Disorder, Depression, Gastritis, HTN, Schizophrenia, Chronic Pain (Back Pain) Surgical History: Hernia Repair, Tonsillectomy - [facility] Procedures DETOXIFICATION SERVICES FOR SUBSTANCE ABUSE TREATMENT (12/26/15) Family History: States: Unknown Family Hx - Social History Hx Tobacco Use: No Hx Alcohol Use: Yes Hx Substance Use: No - Immunization History Hx Tetanus Toxoid Vaccination: No Hx Influenza Vaccination: No Hx Pneumococcal Vaccination: No Review Of Systems Except As Marked, All Systems Reviewed And Found Negative. Constitutional: Positive for: Other (intoxicated). Negative for: Fever Psych: Negative for: Suicidal ideation, Other (homicidal ideation) Physical Exam - Physical Exam Appears: Other (intoxicated) Skin: Warm, Dry Head: Atraumatic, Normacephalic Ear(s): Bilateral: Normal (head of hearing) Neck: Normal ROM, Supple Chest: Symmetrical Cardiovascular: Rhythm Regular Respiratory: Normal Breath Sounds, No Rales, No Rhonchi, No Wheezing Back: Normal Inspection, No CVA Tenderness Extremity: Normal ROM Neurological/Psych: Oriented x3 ED Course And Treatment - Laboratory Results Result Diagrams: 09/19/16 15:35 09/19/16 15:35 Lab Interpretation: Abnormal (etoh 177H) ECG: Interpreted By Me ECG Rhythm: Sinus Rhythm ECG Interpretation: Normal Rate From EC O2 Sat by Pulse Oximetry: 99 (room air) Pulse Ox Interpretation: Normal - Radiology CXR: Interpreted by Me CXR Interpretation: Yes: No Acute Disease - Other Rad head CT X-Ray: Read By Radiologist (no acute findings, + ear wax ) Interpretation: IMPRESSION: Nonspecific white matter changes. Generalized atrophy. Progress Note: Plan: Head CT, Labs, Chest x-ray, EKG Reevaluation Time: 16:52 Reassessment Condition: Improved Medical Decision Making Medical Decision Making: no labs within past 90 days despite regular ED evals, all wnl except for... ETOH 177 mild elev for this chronic alcoholic head CT w atrophy only Poor hearing c/w b/l ear wax impaction pt refused removing wax- debrox educated. Disposition Doctor Will See Patient In The: Office Counseled Patient/Family Regarding: Studies Performed, Diagnosis - Disposition Referrals: Alcoholics Anonymous [Outside] [facility] [Outside] [facility] [Outside] Disposition: HOME/ ROUTINE Disposition Time: 16:50 Condition: GOOD Instructions: Carbamide Peroxide (Into the ear), Cerumen Impaction (ED), Abuse of Alcohol (ED) - Clinical Impression Clinical Impression: Alcohol abuse with uncomplicated intoxication, Excessive ear wax - Scribe Statement The provider has reviewed the documentation as recorded by the Scribe Jhoana Leiva Provider Attestation: All medical record entries made by the Scribe were at my direction and personally dictated by me. I have reviewed the chart and agree that the record accurately reflects my personal performance of the history, physical exam, medical decision making, and the department course for this patient. I have also personally directed, reviewed, and agree with the discharge instructions and disposition.
[2016-09-19 15:50] LABS: ALB/GLOB RATIO 1.3 (1.0-2.1); BILIRUBIN,TOTAL 0.8 mg/dL (0.2-1.3); CARBON DIOXIDE 27 mmol/L (22-30); CHOLESTEROL 156 mg/dL (0-199); GFR AFRICAN-AMERICAN > 60; TOTAL PROTEIN 7.1 g/dL (6.3-8.3)
--- NOTE | 2016-09-19 15:50 | RAD ---
HISTORY: falls COMPARISON: Chest x-ray performed 12/27/15. TECHNIQUE: Chest, one view. FINDINGS: LUNGS: Right peritracheal opacity, possibly tortuous vasculature exaggerated by patient obliquity however alternatives including adenopathy cannot be excluded. Please note that chest x-ray has limited sensitivity for the detection of pulmonary masses. PLEURA: No significant pleural effusion identified. No definite pneumothorax . CARDIOVASCULAR: Heart size appears within normal limits. OSSEOUS STRUCTURES: Degenerative changes of the spine and shoulders. Acromioclavicular arthropathy. VISUALIZED UPPER ABDOMEN: Mild elevation of the right hemidiaphragm, likely exaggerated by patient obliquity. OTHER FINDINGS: None. IMPRESSION: Right peritracheal opacity, possibly tortuous vasculature exaggerated by patient obliquity however alternatives including adenopathy cannot be excluded.
[2016-09-19 15:51] LABS: ALKALINE PHOSPHATASE 73 U/L (38-126); ALT/SGPT 28 U/L (21-72); AST/SGOT 35 U/L (17-59); BLOOD UREA NITROGEN 17 mg/dL (9-20); CALCIUM 8.9 mg/dl (8.6-10.4); GLUCOSE,RANDOM 92 mg/dL (75-110)
[2016-09-19 15:52] LABS: ALCOHOL SERUM 177 mg/dl (0-10)
--- NOTE | 2016-09-19 16:12 | CT ---
PROCEDURE: CT HEAD WITHOUT CONTRAST. HISTORY: alcoholic, homeless, frequent falls COMPARISON: Noncontrast head CT performed 01/27/16 TECHNIQUE: Axial computed tomography images were obtained through the head/brain without intravenous contrast. Radiation dose: Total exam DLP = 1104.57 mGy-cm. This CT exam was performed using one or more of the following dose reduction techniques: Automated exposure control, adjustment of the mA and/or kV according to patient size, and/or use of iterative reconstruction technique. FINDINGS: HEMORRHAGE: No intracranial hemorrhage. BRAIN: Diffuse atrophy with prominence of the ventricles and sulci noted. No mass effect or edema. Intracranial atherosclerosis. Scattered periventricular and subcortical white matter hypodensities, which are nonspecific, but often seen with chronic microvascular ischemic disease. Please note that MRI with diffusion imaging is more sensitive in the detection of acute ischemic event. VENTRICLES: No hydrocephalus. CALVARIUM: Unremarkable. PARANASAL SINUSES: Mucosal thickening of the ethmoid air cells and left frontal sinus. No air-fluid levels identified. MASTOID AIR CELLS: Unremarkable as visualized. No inflammatory changes. OTHER FINDINGS: Opacification of bilateral external auditory canals, likely cerumen. IMPRESSION: Nonspecific white matter changes. Generalized atrophy.
[2016-09-19 17:06] VITALS: BP 142/98; PULSE 81; RESP 13; TEMP 98.7
--- NOTE | 2016-09-20 19:16 | CARD ---
APPROVED REPORT EKG Measurement Heart [id number] <Conclusion> Sinus rhythm with sinus arrhythmia with occasional premature ventricular complexes Low voltage QRS Cannot rule out Inferior infarct, age undetermined Abnormal ECG
== END 2016-09-19 18:30 | disposition home or self-care (01) ==
LOC: C.ER 14:25
DX: F10.120 Alcohol abuse with intoxication, uncomplicated (principal); Y90.6 Blood alcohol level of 120-199 mg/100 ml; H61.23 Impacted cerumen, bilateral
CPT/HCPCS: 70450; 71010; 80053; 80061; 82948; 83036; 84484; 85025; 93005; 99285; G0480

== ENCOUNTER 2016-09-20 15:36 | Emergency (ER) | payer MEDICARE ==
[2016-09-20 15:36] VITALS: BMI 23.3
[2016-09-20] MEDS ORDERED: Permethrin 1% Kit 59 ML BOTTLE TOP STA (15:55)
--- NOTE | 2016-09-20 16:21 | C.PDOC ---
History Of Present Illness 70 y/o male brought in by EMS found sleeping on sidewalk, intoxicated. Pt with frequent visits to emergency department for alcohol intoxication. Pt seen yesterday with extensive labs and CT normal. No physical complaints at this time. Time Seen by Provider: 09/20/16 15:54 Chief Complaint (Nursing): Substance Abuse History Per: Patient History/Exam Limitations: intoxication Suicide/Self Injury Attempted (Context): None Modifying Factor(s): Alcohol Severity: Mild Involuntary Hold By: None Recent travel outside of the [place]: No Past Medical History Reviewed: Historical Data, Nursing Documentation, Vital Signs Vital Signs: Last Vital Signs Temp 98.6 F 09/20/16 21:23 Pulse 102 H 09/20/16 21:23 Resp 20 09/20/16 21:23 BP 111/67 09/20/16 21:23 Pulse Ox 98 09/20/16 21:23 - Medical History PMH: Anxiety, Asthma, Back Problems, Bipolar Disorder, Depression, Gastritis, HTN, Schizophrenia, Chronic Pain (Back Pain) Surgical History: Hernia Repair, Tonsillectomy - [facility] Procedures DETOXIFICATION SERVICES FOR SUBSTANCE ABUSE TREATMENT (12/26/15) Family History: States: Unknown Family Hx - Social History Hx Tobacco Use: No Hx Alcohol Use: Yes Hx Substance Use: No - Immunization History Hx Tetanus Toxoid Vaccination: No Hx Influenza Vaccination: No Hx Pneumococcal Vaccination: No Review Of Systems Cardiovascular: Negative for: Chest Pain Respiratory: Negative for: Shortness of Breath Gastrointestinal: Negative for: Vomiting Physical Exam - Physical Exam Appears: Non-toxic, No Acute Distress, Unkempt, Other (intoxicated, alcohol on breath, disheveled, foul smelling) Skin: Warm, Dry, No Rash, Other (infested with lice) Head: Atraumatic, Normacephalic Neck: Normal, Normal ROM, Supple Chest: Symmetrical Cardiovascular: Rhythm Regular, No Murmur Respiratory: Normal Breath Sounds, No Rales, No Rhonchi, No Wheezing Gastrointestinal/Abdominal: Normal Exam, Soft, No Tenderness Extremity: Normal ROM Extremity: Bilateral: Atraumatic Neurological/Psych: Oriented x3 Medical Decision Making Medical Decision Making: bathed, shaved, deloused (again) all clothing destroyed new clothing given discharged sober. Disposition Counseled Patient/Family Regarding: Studies Performed, Diagnosis - Disposition Disposition: HOME/ ROUTINE Disposition Time: 22:18 Condition: GOOD - Clinical Impression Clinical Impression: Body lice infestation, Alcohol intoxication - Scribe Statement The provider has reviewed the documentation as recorded by the Omar Sweeney Provider Attestation: All medical record entries made by the Omar were at my direction and personally dictated by me. I have reviewed the chart and agree that the record accurately reflects my personal performance of the history, physical exam, medical decision making, and the department course for this patient. I have also personally directed, reviewed, and agree with the discharge instructions and disposition.
[2016-09-20 17:22] VITALS: RESP 20
[2016-09-20 21:24] VITALS: BP 111/67; PULSE 102; TEMP 98.6; O2SAT 98
== END 2016-09-20 22:50 | disposition home or self-care (01) ==
LOC: C.ER 15:36
DX: F10.129 Alcohol abuse with intoxication, unspecified (principal); B85.1 Pediculosis due to Pediculus humanus corporis

== ENCOUNTER 2016-09-24 18:39 | Observation (INO) | payer MEDICARE ==
[2016-09-24 18:39] VITALS: BMI 23.3
--- NOTE | 2016-09-24 20:00 | C.PDOC ---
History Of Present Illness 70 year old patient is brought to the ED by ambulance for acute alcohol intoxication. Patient is well known in the ED for intoxication. He admits to drinking alcohol today. Patient denies any other complaints at this time. Time Seen by Provider: 09/24/16 19:06 Chief Complaint (Nursing): Substance Abuse History Per: Patient, EMS History/Exam Limitations: intoxication Onset/Duration Of Symptoms: Other Suicide/Self Injury Attempted (Context): None Modifying Factor(s): Alcohol Severity: None Pain Scale Rating Of: 0 Recent travel outside of the [place]: No Additional History Per: Prior Records Past Medical History Reviewed: Historical Data, Nursing Documentation, Vital Signs Vital Signs: Last Vital Signs Temp 98.1 F 09/25/16 04:17 Pulse 64 09/25/16 04:17 Resp 16 09/25/16 04:17 BP 146/90 09/25/16 04:17 Pulse Ox 96 09/25/16 04:17 - Medical History PMH: Anxiety, Asthma, Back Problems, Bipolar Disorder, Depression, Gastritis, HTN, Schizophrenia, Chronic Pain (Back Pain) Surgical History: Hernia Repair, Tonsillectomy - [facility] Procedures DETOXIFICATION SERVICES FOR SUBSTANCE ABUSE TREATMENT (12/26/15) Family History: States: No Known Family Hx - Social History Hx Tobacco Use: No Hx Alcohol Use: Yes Hx Substance Use: No - Immunization History Hx Tetanus Toxoid Vaccination: No Hx Influenza Vaccination: No Hx Pneumococcal Vaccination: No Review Of Systems Except As Marked, All Systems Reviewed And Found Negative. Constitutional: Negative for: Fever Gastrointestinal: Negative for: Nausea, Vomiting Psych: Negative for: Suicidal ideation Physical Exam - Physical Exam Appears: No Acute Distress, Other (intoxicated) Skin: Warm, Dry Head: Atraumatic, Normacephalic Neck: Supple Cardiovascular: Rhythm Regular Respiratory: Normal Breath Sounds, No Rales, No Rhonchi, No Wheezing Extremity: Bilateral: Atraumatic Neurological/Psych: Oriented x3 ED Course And Treatment O2 Sat by Pulse Oximetry: 95 (room air) Pulse Ox Interpretation: Normal Progress Note: Patient will be kept in the ED for observation and pending sobriety. Disposition Counseled Patient/Family Regarding: Studies Performed, Diagnosis - Disposition Disposition: HOME/ ROUTINE Disposition Time: 05:50 Condition: STABLE - POA Present On Arrival: None - Clinical Impression Clinical Impression: Alcohol intoxication - Scribe Statement Jhoana Leiva Provider Attestation: All medical record entries made by the Augustaibjackelyn were at my direction and personally dictated by me. I have reviewed the chart and agree that the record accurately reflects my personal performance of the history, physical exam, medical decision making, and the department course for this patient. I have also personally directed, reviewed, and agree with the discharge instructions and disposition.
[2016-09-25 04:18] VITALS: BP 146/90; PULSE 64; RESP 16; TEMP 98.1
[2016-09-25 05:50] VITALS: O2SAT 95
== END 2016-09-25 05:49 | disposition home or self-care (01) ==
LOC: C.ER 18:39 → C.9OBSV 19:21
PROVIDERS: ADMIT Emergency Medicine; ATTEND Emergency Medicine
DX: F10.129 Alcohol abuse with intoxication, unspecified (principal); F31.9 Bipolar disorder, unspecified; J45.909 Unspecified asthma, uncomplicated; I10 Essential (primary) hypertension; Y90.9 Presence of alcohol in blood, level not specified

== ENCOUNTER 2016-09-25 14:32 | Observation (INO) | payer MEDICARE ==
--- NOTE | 2016-09-25 14:58 | C.PDOC ---
History Of Present Illness <Loida Mobley - Last Filed: 09/25/16 18:39> <Delilah Pino - Last Filed: 09/26/16 01:08> 70 year old patient is brought to the ED by ambulance for acute alcohol intoxication. Patient is well known in the ED for intoxication. He admits to drinking alcohol today. Patient denies any other complaints at this time. (Loida Mobley) History Per: Patient History/Exam Limitations: no limitations Onset/Duration Of Symptoms: Persistent Current Symptoms Are (Timing): Still Present Suicide/Self Injury Attempted (Context): None Modifying Factor(s): Alcohol Associated Symptoms: denies: Suicidal Thoughts, Suicidal Plan Recent travel outside of the [place]: No <Loida Mobley - Last Filed: 09/25/16 18:39> <Delilah Pino - Last Filed: 09/26/16 01:08> Time Seen by Provider: 09/25/16 14:45 Chief Complaint (Nursing): Substance Abuse Past Medical History Reviewed: Historical Data, Nursing Documentation, Vital Signs - Medical History PMH: Anxiety, Asthma, Back Problems, Bipolar Disorder, Depression, Gastritis, HTN, Schizophrenia, Chronic Pain (Back Pain) Surgical History: Hernia Repair, Tonsillectomy Family History: States: Unknown Family Hx - Social History Hx Tobacco Use: No Hx Alcohol Use: Yes Hx Substance Use: No - Immunization History Hx Tetanus Toxoid Vaccination: No Hx Influenza Vaccination: No Hx Pneumococcal Vaccination: No <Loida Mobley - Last Filed: 09/25/16 18:39> Review Of Systems Except As Marked, All Systems Reviewed And Found Negative. Constitutional: Negative for: Fever Cardiovascular: Negative for: Chest Pain Respiratory: Negative for: Shortness of Breath, Wheezing Gastrointestinal: Negative for: Nausea, Vomiting, Abdominal Pain Skin: Negative for: Rash Neurological: Negative for: Headache, Dizziness <Loida Mobley - Last Filed: 09/25/16 18:39> Physical Exam - Physical Exam Appears: Non-toxic, Other (+AOB) Skin: Normal Color, Warm, Dry Head: Atraumatic, Normacephalic Chest: Symmetrical Cardiovascular: Rhythm Regular Respiratory: Normal Breath Sounds, No Rales, No Rhonchi, No Wheezing Gastrointestinal/Abdominal: Soft, No Tenderness Back: Normal Inspection Extremity: Normal ROM, Capillary Refill (< 2 sec.) Neurological/Psych: Oriented x3, Normal Speech, Normal Cognition <Loida Mobley - Last Filed: 09/25/16 18:39> ED Course And Treatment O2 Sat by Pulse Oximetry: 97 (RA) Pulse Ox Interpretation: Normal Progress Note: Patient arrived in ED with BLS found intoxicated. FBS > 120. Sleeping, quiet in no distress <Loida Mobley - Last Filed: 09/25/16 18:39> ED OBSERVATION <Loida Mobley - Last Filed: 09/25/16 18:39> <Delilah Pino - Last Filed: 09/26/16 01:08> - Observation admission statement Patient is being placed in observation because:: pending sobriety (Loida Mobley) - Progress Note Progress Note: 09/26/16 01:07 Patient sleeping quietly. (Delilah Pino) Disposition - POA Present On Arrival: None <Loida Mobley - Last Filed: 09/25/16 18:39> - Disposition Disposition Time: 01:08 <Delilah Pino - Last Filed: 09/26/16 01:08> - Disposition Condition: STABLE - Clinical Impression Clinical Impression: Intoxication, Homelessness, Alcohol abuse - PA / [employer] / Resident Statement MD/DO has reviewed & agrees with the documentation as recorded. - Scribe Statement The provider has reviewed the documentation as recorded by the Scribe <Loida Mobley - Last Filed: 09/25/16 18:39> <Delilah Pino - Last Filed: 09/26/16 01:08> - Scribe Statement REY LYONS All medical record entries made by the Scribe were at my direction and personally dictated by me. I have reviewed the chart and agree that the record accurately reflects my personal performance of the history, physical exam, medical decision making, and the department course for this patient. I have also personally directed, reviewed, and agree with the discharge instructions and disposition. (Loida Mobley) Physician Patient Turnover Patient Signed Over To: Jb Riddle Handoff Comments: pending sobriety <Delilah Pino - Last Filed: 09/26/16 01:08>
[2016-09-25 14:59] VITALS: BMI 27.3
[2016-09-25 21:24] VITALS: RESP 18
[2016-09-26 05:12] VITALS: BP 147/91; PULSE 68; TEMP 97.3; O2SAT 99
== END 2016-09-26 05:05 | disposition home or self-care (01) ==
LOC: C.ER 14:32 → C.9OBSV 18:41
PROVIDERS: ADMIT Emergency Medicine; ATTEND Emergency Medicine
DX: F10.129 Alcohol abuse with intoxication, unspecified (principal); Z59.0 Homelessness; Y90.9 Presence of alcohol in blood, level not specified

== ENCOUNTER 2016-09-27 20:51 | Observation (INO) | payer MEDICARE ==
[2016-09-27 20:51] VITALS: BMI 27.3
--- NOTE | 2016-09-27 20:56 | C.PDOC ---
History Of Present Illness Patient was brought to the ED by EMS after being found sleeping on the street. Patient had EtOH on breath and denies any physical complaints at this time. Time Seen by Provider: 09/27/16 20:54 History Per: Patient History/Exam Limitations: no limitations Onset/Duration Of Symptoms: Hrs Current Symptoms Are (Timing): Still Present Suicide/Self Injury Attempted (Context): None Associated Symptoms: denies: Suicidal Thoughts, Suicidal Plan Involuntary Hold By: None Recent travel outside of the [place]: No Additional History Per: EMS Past Medical History Reviewed: Historical Data, Nursing Documentation, Vital Signs Vital Signs: Last Vital Signs Temp 98 F 09/27/16 20:55 Pulse 89 09/27/16 20:55 Resp 20 09/27/16 20:55 BP 92/57 L 09/27/16 20:55 Pulse Ox 98 09/27/16 20:55 - Medical History PMH: Anxiety, Asthma, Back Problems, Bipolar Disorder, Depression, Gastritis, HTN, Schizophrenia, Chronic Pain (Back Pain) Surgical History: Hernia Repair, Tonsillectomy - [facility] Procedures DETOXIFICATION SERVICES FOR SUBSTANCE ABUSE TREATMENT (12/26/15) Family History: States: Unknown Family Hx - Social History Hx Tobacco Use: No Hx Alcohol Use: Yes Hx Substance Use: No - Immunization History Hx Tetanus Toxoid Vaccination: No Hx Influenza Vaccination: No Hx Pneumococcal Vaccination: No Review Of Systems Constitutional: Negative for: Fever, Chills, Sweats Cardiovascular: Negative for: Chest Pain, Palpitations Respiratory: Negative for: Cough, Shortness of Breath Gastrointestinal: Negative for: Nausea, Vomiting, Abdominal Pain, Diarrhea Psych: Negative for: Suicidal ideation Physical Exam - Physical Exam Appears: Non-toxic, No Acute Distress Skin: Warm, Dry Head: Atraumatic Oral Mucosa: Moist Neck: Supple Chest: Symmetrical, No Deformity Cardiovascular: Rhythm Regular Respiratory: No Rales, No Rhonchi, No Stridor, No Wheezing Gastrointestinal/Abdominal: Soft, No Tenderness, No Distention, No Guarding, No Rebound Extremity: Normal ROM, No Tenderness Neurological/Psych: Oriented x3 ED Course And Treatment O2 Sat by Pulse Oximetry: 98 Pulse Ox Interpretation: Normal ED OBSERVATION Discharge: Yes Date of observation admission: 09/27/16 Time of observation admission: 20:55 - Observation admission statement Patient is being placed in observation because:: acute alcohol intoxication - Goals of Observation Goals of observation are:: sobriety - Progress Note Progress Note: 09/27/16 20:56 vitals stable 09/28/16 00:17 arousable 09/28/16 04:17 no complaints Disposition Counseled Patient/Family Regarding: Studies Performed, Diagnosis, Need For Followup - Disposition Disposition: HOME/ ROUTINE Disposition Time: 20:55 Condition: FAIR - Clinical Impression Clinical Impression: Alcohol abuse with intoxication - Scribe Statement The provider has reviewed the documentation as recorded by the Augustaibjackelyn Connelly All medical record entries made by the Omar were at my direction and personally dictated by me. I have reviewed the chart and agree that the record accurately reflects my personal performance of the history, physical exam, medical decision making, and the department course for this patient. I have also personally directed, reviewed, and agree with the discharge instructions and disposition.
[2016-09-27 20:58] VITALS: O2SAT 98
[2016-09-28 05:51] VITALS: BP 130/70; PULSE 70; RESP 12; TEMP 97.2
== END 2016-09-28 05:17 | disposition home or self-care (01) ==
LOC: C.ER 20:51 → C.9OBSV 20:57
PROVIDERS: ADMIT Emergency Medicine; ATTEND Emergency Medicine
DX: F10.229 Alcohol dependence with intoxication, unspecified (principal); J45.909 Unspecified asthma, uncomplicated; F32.9 Major depressive disorder, single episode, unspecified
CPT/HCPCS: 99282; G0378

== ENCOUNTER 2016-09-28 23:09 | Observation (INO) | payer MEDICARE ==
[2016-09-28 23:10] VITALS: BMI 27.3
[2016-09-28 23:20] VITALS: BP 112/65; PULSE 94; RESP 20; TEMP 97.8; O2SAT 95
--- NOTE | 2016-09-28 23:23 | C.PDOC ---
History Of Present Illness <Darren Mckeon - Last Filed: 09/29/16 00:30> <Josesito King - Last Filed: 09/29/16 05:39> Patient is a 70 year old male brought in by EMS for acute ETOH intoxication. Patient admits to drinking today and denies any physical complaints. (Darren Mckeon) History Per: Patient History/Exam Limitations: no limitations Onset/Duration Of Symptoms: Hrs Current Symptoms Are (Timing): Still Present Suicide/Self Injury Attempted (Context): None Modifying Factor(s): Alcohol Associated Symptoms: denies: Depression, Suicidal Thoughts, Suicidal Plan Involuntary Hold By: None Recent travel outside of the [place]: No <Darren Mckeon - Last Filed: 09/29/16 00:30> <Josesito King - Last Filed: 09/29/16 05:39> Time Seen by Provider: 09/28/16 23:14 Chief Complaint (Nursing): Substance Abuse Past Medical History Reviewed: Historical Data, Nursing Documentation, Vital Signs - Medical History PMH: Anxiety, Asthma, Back Problems, Bipolar Disorder, Depression, Gastritis, HTN, Schizophrenia, Chronic Pain (Back Pain) Surgical History: Hernia Repair, Tonsillectomy Family History: States: Unknown Family Hx - Social History Hx Tobacco Use: No Hx Alcohol Use: Yes Hx Substance Use: No - Immunization History Hx Tetanus Toxoid Vaccination: No Hx Influenza Vaccination: No Hx Pneumococcal Vaccination: No <Darren Mckeon - Last Filed: 09/29/16 00:30> Review Of Systems Constitutional: Negative for: Fever, Chills Gastrointestinal: Negative for: Nausea, Vomiting, Diarrhea Neurological: Positive for: Other (ETOH intoxication) <Darren Mckeon - Last Filed: 09/29/16 00:30> Physical Exam <Darren Mckeon - Last Filed: 09/29/16 00:30> <Josesito King - Last Filed: 09/29/16 05:39> - Physical Exam Additional Physical Exam Comments: Constitutional: ETOH on breath. Head: Normocephalic. Atraumatic. Eyes: PERRL. ENT: Moist mucous membranes. Neck: Supple. Cardiovascular: Regular rate. Radial pulse 2+ bilaterally. Chest: No tenderness. Respiratory: Clear to auscultation bilaterally. GI: Soft. Nontender. Nondistended. Back: No CVA tenderness. Musculoskeletal: No tenderness or swelling of extremities. Skin: No rash. Neurologic: Alert, no focal deficit. (Darren Mckeon) ED Course And Treatment O2 Sat by Pulse Oximetry: 95 <MikeDarren - Last Filed: 09/29/16 00:30> ED OBSERVATION Date of observation admission: 09/28/16 Time of observation admission: 23:22 <MikeDarren Rivera - Last Filed: 09/29/16 00:30> Discharge: Yes <Josesito King - Last Filed: 09/29/16 05:39> - Observation admission statement Patient is being placed in observation because:: alcohol intoxication (Darren Mckeon) - Goals of Observation Goals of observation are:: sobriety (Darren Mckeon) - Progress Note Progress Note: 09/28/16 23:22 Sleeping, in no acute distress. 09/29/16 01:30 Sleeping, no acute distress. Intoxicated. Will sign out to ER night team at end of shift. (Darren Mckeon) Disposition <Darren Mckeon - Last Filed: 09/29/16 00:30> - Disposition Disposition Time: 05:38 <Josesito King - Last Filed: 09/29/16 05:39> - Disposition Disposition: HOME/ ROUTINE Condition: FAIR - Clinical Impression Clinical Impression: Alcohol abuse with intoxication - Scribe Statement The provider has reviewed the documentation as recorded by the Scribe <Darren Mckeon - Last Filed: 09/29/16 00:30> <Josesito King - Last Filed: 09/29/16 05:39> - Scribe Statement Chalino Huang All medical record entries made by the Scribe were at my direction and personally dictated by me. I have reviewed the chart and agree that the record accurately reflects my personal performance of the history, physical exam, medical decision making, and the department course for this patient. I have also personally directed, reviewed, and agree with the discharge instructions and disposition. (Darren Mckeon) Addendum <Darren Mckeon - Last Filed: 09/29/16 00:30> <Josesito King - Last Filed: 09/29/16 05:39> Addendum: Pt remained stable while in the ED At discharge ambulated with steady gait (Josesito King)
== END 2016-09-29 05:39 | disposition home or self-care (01) ==
LOC: C.ER 23:09 → C.9OBSV 23:59
PROVIDERS: ADMIT Student in an Organized Health Care Education/Training Program; ATTEND Student in an Organized Health Care Education/Training Program
DX: F10.120 Alcohol abuse with intoxication, uncomplicated (principal); Y90.9 Presence of alcohol in blood, level not specified
CPT/HCPCS: 99282; G0378

== ENCOUNTER 2016-09-29 13:10 | Observation (INO) | payer MEDICARE ==
[2016-09-29 13:11] VITALS: BMI 27.3
--- NOTE | 2016-09-29 13:34 | C.PDOC ---
History Of Present Illness 70-year-old male, PMHx includes EtOH Abuse, presents to the emergency department via BLS with complaints of public intoxication. Patient has a Hx of multiple visits to the ED for same complaint. No physical complaints at this time. Time Seen by Provider: 09/29/16 13:31 Chief Complaint (Nursing): Medical Clearance History Per: EMS History/Exam Limitations: intoxication Modifying Factor(s): Alcohol Past Medical History Reviewed: Historical Data, Nursing Documentation, Vital Signs Vital Signs: Last Vital Signs Temp 98 F 09/29/16 18:03 Pulse 82 09/29/16 18:03 Resp 16 09/29/16 18:03 BP 124/82 09/29/16 18:03 Pulse Ox 98 09/29/16 18:03 - Medical History PMH: Anxiety, Asthma, Back Problems, Bipolar Disorder, Depression, Gastritis, HTN, Schizophrenia, Chronic Pain (Back Pain) Surgical History: Hernia Repair, Tonsillectomy - [facility] Procedures DETOXIFICATION SERVICES FOR SUBSTANCE ABUSE TREATMENT (12/26/15) Family History: States: No Known Family Hx Other Family History: Non-contributory - Social History Hx Tobacco Use: No Hx Alcohol Use: Yes Hx Substance Use: No - Immunization History Hx Tetanus Toxoid Vaccination: No Hx Influenza Vaccination: No Hx Pneumococcal Vaccination: No Review Of Systems Cardiovascular: Negative for: Chest Pain Gastrointestinal: Negative for: Vomiting, Abdominal Pain Neurological: Negative for: Weakness, Numbness Psych: Negative for: Suicidal ideation Physical Exam - Physical Exam Additional Physical Exam Comments: Constitutional: EtOH on breath. No acute distress Head: Normocephalic. Atraumatic. Eyes: PERRL. EOMI ENT: Moist mucous membranes. Neck: Supple. Cardiovascular: Regular rate. Radial pulses 2+ bilaterally. Chest: No tenderness. Respiratory: Clear to auscultation bilaterally. Back: No CVA tenderness. No midline tenderness. Musculoskeletal: No tenderness or swelling of extremities. Skin: No rash. Neurologic: Alert, no focal deficit. ED Course And Treatment O2 Sat by Pulse Oximetry: 94 ED OBSERVATION Discharge: Yes Date of observation admission: 09/29/16 Time of observation admission: 14:13 - Observation admission statement Patient is being placed in observation because:: alcohol intoxication - Goals of Observation Goals of observation are:: sobriety - Progress Note Progress Note: 09/29/16 14:13 Sleeping, in no acute distress. 09/29/16 16:00 Sleeping, no distress. 09/29/16 18:00 Sleeping. 09/29/16 19:14 Awake, alert, ate food and drink, steady gait. Disposition - Disposition Disposition: HOME/ ROUTINE Disposition Time: 19:14 Condition: STABLE - Clinical Impression Clinical Impression: Intoxication - Scribe Statement The provider has reviewed the documentation as recorded by the Omar Natarajan All medical record entries made by the Augustaibjackelyn were at my direction and personally dictated by me. I have reviewed the chart and agree that the record accurately reflects my personal performance of the history, physical exam, medical decision making, and the department course for this patient. I have also personally directed, reviewed, and agree with the discharge instructions and disposition.
[2016-09-29 18:04] VITALS: BP 124/82; PULSE 82; RESP 16; TEMP 98
[2016-09-29 19:15] VITALS: O2SAT 94
== END 2016-09-29 19:14 | disposition home or self-care (01) ==
LOC: C.ER 13:10 → C.9OBSV 14:12
PROVIDERS: ADMIT Student in an Organized Health Care Education/Training Program; ATTEND Student in an Organized Health Care Education/Training Program
DX: F10.120 Alcohol abuse with intoxication, uncomplicated (principal); Y90.9 Presence of alcohol in blood, level not specified
CPT/HCPCS: 82948; 99284; G0378

== ENCOUNTER 2016-10-01 22:08 | Emergency (ER) | payer MEDICARE ==
[2016-10-01 22:08] VITALS: BMI 20.7
[2016-10-01 23:43] VITALS: RESP 20; TEMP 97.4
--- NOTE | 2016-10-02 03:47 | C.PDOC ---
History Of Present Illness pt inebriated, wants a place to sleep. No f/c/n/v. No obvious signs of trauma. Numerous presentation to this ed Time Seen by Provider: 10/02/16 03:45 Chief Complaint (Nursing): Substance Abuse History Per: Patient History/Exam Limitations: no limitations Onset/Duration Of Symptoms: Hrs Current Symptoms Are (Timing): Still Present Suicide/Self Injury Attempted (Context): None Modifying Factor(s): Alcohol Severity: None Associated Symptoms: denies: Anger Involuntary Hold By: None Recent travel outside of the [place]: No Additional History Per: EMS Past Medical History Reviewed: Historical Data, Nursing Documentation, Vital Signs Vital Signs: Last Vital Signs Temp 97.4 F L 10/01/16 23:41 Pulse 80 10/02/16 05:40 Resp 20 10/02/16 05:40 BP 137/80 10/02/16 05:40 Pulse Ox 99 10/02/16 05:40 - Medical History PMH: Anxiety, Asthma, Back Problems, Bipolar Disorder, Depression, Gastritis, HTN, Schizophrenia, Chronic Pain (Back Pain) Surgical History: Hernia Repair, Tonsillectomy - [facility] Procedures DETOXIFICATION SERVICES FOR SUBSTANCE ABUSE TREATMENT (12/26/15) Family History: States: No Known Family Hx - Social History Hx Tobacco Use: No Hx Alcohol Use: Yes Hx Substance Use: No - Immunization History Hx Tetanus Toxoid Vaccination: No Hx Influenza Vaccination: No Hx Pneumococcal Vaccination: No Review Of Systems Constitutional: Negative for: Fever, Chills Respiratory: Negative for: Shortness of Breath Gastrointestinal: Negative for: Abdominal Pain Genitourinary: Negative for: Dysuria Musculoskeletal: Negative for: Back Pain Neurological: Negative for: Weakness Psych: Negative for: Anxiety Physical Exam - Physical Exam Appears: Non-toxic, No Acute Distress Skin: Warm, Dry Neck: Supple Cardiovascular: Rhythm Regular Respiratory: No Rales, No Rhonchi, No Wheezing Gastrointestinal/Abdominal: Soft Back: No CVA Tenderness Extremity: No Tenderness Neurological/Psych: Oriented x3 Gait: Steady ED Course And Treatment O2 Sat by Pulse Oximetry: 100 Pulse Ox Interpretation: Normal Reevaluation Time: 06:15 Reassessment Condition: Improved Disposition Counseled Patient/Family Regarding: Studies Performed, Diagnosis, Need For Followup - Disposition Referrals: [facility] [Outside] Disposition: HOME/ ROUTINE Disposition Time: 03:46 Condition: FAIR Instructions: Alcohol Intoxication (DC) - Clinical Impression Clinical Impression: Alcoholism /alcohol abuse
[2016-10-02 05:57] VITALS: BP 137/80; PULSE 80
[2016-10-02 06:17] VITALS: O2SAT 100
== END 2016-10-02 05:40 | disposition home or self-care (01) ==
LOC: C.ER 22:08
DX: F10.220 Alcohol dependence with intoxication, uncomplicated (principal); Y90.9 Presence of alcohol in blood, level not specified

== ENCOUNTER 2016-10-03 00:05 | Emergency (ER) | payer MEDICARE ==
[2016-10-03 00:05] VITALS: BMI 20.7
--- NOTE | 2016-10-03 00:09 | C.PDOC ---
History Of Present Illness Patient was brought in via EMS for acute ETOH intoxication. Patient has no physical complaints at this time. Time Seen by Provider: 10/03/16 00:08 History Per: Patient History/Exam Limitations: no limitations Onset/Duration Of Symptoms: Hrs Current Symptoms Are (Timing): Still Present Suicide/Self Injury Attempted (Context): None Modifying Factor(s): Alcohol Severity: None Pain Scale Rating Of: 0 Associated Symptoms: denies: Depression, Suicidal Thoughts, Suicidal Plan Involuntary Hold By: None Recent travel outside of the [place]: No Past Medical History Reviewed: Historical Data, Nursing Documentation, Vital Signs Vital Signs: Last Vital Signs Temp 97.8 F 10/03/16 05:14 Pulse 71 10/03/16 05:14 Resp 16 10/03/16 05:14 BP 120/76 10/03/16 05:14 Pulse Ox 98 10/03/16 05:14 - Medical History PMH: Anxiety, Asthma, Back Problems, Bipolar Disorder, Depression, Gastritis, HTN, Schizophrenia, Chronic Pain (Back Pain) Surgical History: Hernia Repair, Tonsillectomy - [facility] Procedures DETOXIFICATION SERVICES FOR SUBSTANCE ABUSE TREATMENT (12/26/15) Family History: States: No Known Family Hx - Social History Hx Tobacco Use: No Hx Alcohol Use: Yes Hx Substance Use: No - Immunization History Hx Tetanus Toxoid Vaccination: No Hx Influenza Vaccination: No Hx Pneumococcal Vaccination: No Review Of Systems Constitutional: Negative for: Fever, Chills Gastrointestinal: Negative for: Nausea, Vomiting, Diarrhea Neurological: Positive for: Other (ETOH intoxication) Physical Exam - Physical Exam Appears: Non-toxic, Other (ETOH on breath) Skin: Warm, Dry Oral Mucosa: Moist Chest: Symmetrical, No Tenderness Cardiovascular: Rhythm Regular, No Murmur Respiratory: No Rales, No Rhonchi, No Wheezing Gastrointestinal/Abdominal: Soft, No Tenderness Neurological/Psych: Oriented x3 ED Course And Treatment O2 Sat by Pulse Oximetry: 98 Pulse Ox Interpretation: Normal ED OBSERVATION Discharge: Yes Date of observation admission: 10/03/16 Time of observation admission: 00:22 - Observation admission statement Patient is being placed in observation because:: acute alcohol intoxication - Goals of Observation Goals of observation are:: sobriety - Progress Note Progress Note: 10/03/16 00:22 vitals stable 10/03/16 04:27 no complaints Disposition Counseled Patient/Family Regarding: Studies Performed, Diagnosis, Need For Followup - Disposition Referrals: [facility] [Outside] Disposition: HOME/ ROUTINE Disposition Time: 00:09 Condition: FAIR Instructions: Alcohol Intoxication (DC) - Clinical Impression Clinical Impression: Alcohol abuse, Alcohol abuse with intoxication - Scribe Statement The provider has reviewed the documentation as recorded by the Scribe Chalino Huang All medical record entries made by the Scribe were at my direction and personally dictated by me. I have reviewed the chart and agree that the record accurately reflects my personal performance of the history, physical exam, medical decision making, and the department course for this patient. I have also personally directed, reviewed, and agree with the discharge instructions and disposition.
[2016-10-03 00:27] VITALS: RESP 16
[2016-10-03 05:15] VITALS: BP 120/76; PULSE 71; TEMP 97.8; O2SAT 98
== END 2016-10-03 06:01 | disposition home or self-care (01) ==
LOC: C.ER 00:05
DX: F10.120 Alcohol abuse with intoxication, uncomplicated (principal); Y90.9 Presence of alcohol in blood, level not specified

== ENCOUNTER 2016-10-04 11:23 | Observation (INO) | payer MEDICARE ==
[2016-10-04 11:23] VITALS: BMI 20.7
--- NOTE | 2016-10-04 11:45 | C.PDOC ---
History Of Present Illness 70-year-old male, PMHx includes EtOH Abuse, presents to the emergency department via BLS with complaints of public intoxication. Patient has a Hx of multiple visits to the ED for same complaint. No physical complaints at this time. Time Seen by Provider: 10/04/16 11:42 Chief Complaint (Nursing): Substance Abuse History Per: EMS History/Exam Limitations: no limitations Current Symptoms Are (Timing): Still Present Past Medical History Reviewed: Historical Data, Nursing Documentation, Vital Signs Vital Signs: Last Vital Signs Temp 98.1 F 10/04/16 16:51 Pulse 74 10/04/16 16:51 Resp 16 10/04/16 16:51 BP 111/73 10/04/16 16:51 Pulse Ox 98 10/04/16 16:51 - Medical History PMH: Anxiety, Asthma, Back Problems, Bipolar Disorder, Depression, Gastritis, HTN, Schizophrenia, Chronic Pain (Back Pain) Surgical History: Hernia Repair, Tonsillectomy - [facility] Procedures DETOXIFICATION SERVICES FOR SUBSTANCE ABUSE TREATMENT (12/26/15) Other Family History: Non-contributory. - Social History Hx Tobacco Use: No Hx Alcohol Use: Yes Hx Substance Use: No - Immunization History Hx Tetanus Toxoid Vaccination: No Hx Influenza Vaccination: No Hx Pneumococcal Vaccination: No Review Of Systems Review Of Systems: ROS cannot be obtained secondary to pt's inabilty to answer questions. (Intoxication) Physical Exam - Physical Exam Appears: Non-toxic, No Acute Distress, Other (ETOH ON BREATH. CALM. ) Head: Atraumatic Neck: Normal ROM Respiratory: No Accessory Muscle Use Extremity: Normal ROM Gait: Unsteady (Intox) ED Course And Treatment O2 Sat by Pulse Oximetry: 97 Progress Note: Pending sobriety. Disposition Counseled Patient/Family Regarding: Diagnosis, Need For Followup - Disposition Disposition: HOME/ ROUTINE Disposition Time: 17:05 Condition: STABLE - POA Present On Arrival: None - Clinical Impression Clinical Impression: Alcohol abuse with uncomplicated intoxication - Scribe Statement The provider has reviewed the documentation as recorded by the Scribe (Liseth Bañuelos) All medical record entries made by the Scribe were at my direction and personally dictated by me. I have reviewed the chart and agree that the record accurately reflects my personal performance of the history, physical exam, medical decision making, and the department course for this patient. I have also personally directed, reviewed, and agree with the discharge instructions and disposition.
[2016-10-04 16:52] VITALS: BP 111/73; PULSE 74; RESP 16; TEMP 98.1
[2016-10-04 17:05] VITALS: O2SAT 97
== END 2016-10-04 17:06 | disposition home or self-care (01) ==
LOC: C.ER 11:23 → C.9OBSV 11:56
PROVIDERS: ADMIT Emergency Medicine; ATTEND Emergency Medicine
DX: F10.229 Alcohol dependence with intoxication, unspecified (principal); J45.909 Unspecified asthma, uncomplicated; F32.9 Major depressive disorder, single episode, unspecified; I10 Essential (primary) hypertension; F20.9 Schizophrenia, unspecified
CPT/HCPCS: 99284; G0378

== ENCOUNTER 2016-10-08 20:48 | Emergency (ER) | payer MEDICARE ==
[2016-10-08 20:49] VITALS: BMI 20.7
--- NOTE | 2016-10-08 20:57 | C.PDOC ---
History Of Present Illness 70 y/o male presents to the ED with alcohol intoxication. Pt with frequent visits to ED for the same. No complaints at this time. Time Seen by Provider: 10/08/16 20:56 History Per: Patient History/Exam Limitations: no limitations Suicide/Self Injury Attempted (Context): None Modifying Factor(s): Alcohol Severity: Mild Associated Symptoms: denies: Suicidal Thoughts Involuntary Hold By: None Recent travel outside of the [place]: No Past Medical History Reviewed: Historical Data, Nursing Documentation, Vital Signs Vital Signs: Last Vital Signs Temp 98.1 F 10/09/16 00:14 Pulse 79 10/09/16 00:14 Resp 16 10/09/16 00:14 BP 126/81 10/09/16 00:14 Pulse Ox 98 10/09/16 00:14 - Medical History PMH: Anxiety, Asthma, Back Problems, Bipolar Disorder, Depression, Gastritis, HTN, Schizophrenia, Chronic Pain (Back Pain) Surgical History: Hernia Repair, Tonsillectomy - [facility] Procedures DETOXIFICATION SERVICES FOR SUBSTANCE ABUSE TREATMENT (12/26/15) Family History: States: Unknown Family Hx - Social History Hx Tobacco Use: No Hx Alcohol Use: Yes Hx Substance Use: No - Immunization History Hx Tetanus Toxoid Vaccination: No Hx Influenza Vaccination: No Hx Pneumococcal Vaccination: No Review Of Systems Constitutional: Negative for: Fever Cardiovascular: Negative for: Chest Pain Respiratory: Negative for: Shortness of Breath Gastrointestinal: Negative for: Vomiting Neurological: Negative for: Headache Psych: Negative for: Suicidal ideation Physical Exam - Physical Exam Appears: Non-toxic, No Acute Distress Skin: Warm, Dry, No Rash Head: Atraumatic, Normacephalic Neck: Supple Chest: Symmetrical Cardiovascular: Rhythm Regular, No Murmur Respiratory: No Rales, No Rhonchi, No Wheezing Gastrointestinal/Abdominal: Soft, No Tenderness Extremity: Bilateral: Atraumatic Neurological/Psych: Oriented x3 ED Course And Treatment O2 Sat by Pulse Oximetry: 98 Pulse Ox Interpretation: Normal ED OBSERVATION Discharge: Yes Date of observation admission: 10/08/16 Time of observation admission: 21:00 - Observation admission statement Patient is being placed in observation because:: Pending sobriety. Disposition Counseled Patient/Family Regarding: Studies Performed, Diagnosis, Need For Followup - Disposition Referrals: [facility] [Outside] Disposition: HOME/ ROUTINE Disposition Time: 20:56 Condition: FAIR Instructions: Alcohol Intoxication (DC) - Clinical Impression Clinical Impression: Alcohol abuse with intoxication - Scribe Statement The provider has reviewed the documentation as recorded by the Omar Sweeney Provider Attestation: All medical record entries made by the Omar were at my direction and personally dictated by me. I have reviewed the chart and agree that the record accurately reflects my personal performance of the history, physical exam, medical decision making, and the department course for this patient. I have also personally directed, reviewed, and agree with the discharge instructions and disposition.
[2016-10-09 00:23] VITALS: RESP 16
[2016-10-09 05:39] VITALS: BP 132/82; PULSE 89; TEMP 97.6; O2SAT 96
== END 2016-10-09 05:39 | disposition home or self-care (01) ==
LOC: C.ER 20:48
DX: F10.129 Alcohol abuse with intoxication, unspecified (principal)

== ENCOUNTER 2016-10-09 20:07 | Observation (INO) | payer MEDICARE ==
[2016-10-09 20:08] VITALS: BMI 20.7
--- NOTE | 2016-10-09 20:22 | C.PDOC ---
History Of Present Illness A 70 y/o male was found outside on the side walk laying down ETOH intoxicated. Pt is well known in the ER with numerous prior visits. Pt denies suicidal or homicidal ideation, or any complaints at this time. Pt still has bottle in the ER. Time Seen by Provider: 10/09/16 20:22 Chief Complaint (Nursing): Substance Abuse History Per: Patient History/Exam Limitations: intoxication Onset/Duration Of Symptoms: Days Current Symptoms Are (Timing): Still Present Suicide/Self Injury Attempted (Context): None Modifying Factor(s): Alcohol Severity: Mild Associated Symptoms: denies: Suicidal Thoughts, Suicidal Plan Involuntary Hold By: None Recent travel outside of the [place]: No Additional History Per: Patient Past Medical History Reviewed: Historical Data, Nursing Documentation, Vital Signs Vital Signs: Last Vital Signs Temp 98.8 F 10/09/16 20:16 Pulse 81 10/09/16 20:16 Resp 16 10/09/16 20:16 BP 107/64 10/09/16 20:16 Pulse Ox 95 10/09/16 20:26 - Medical History PMH: Anxiety, Asthma, Back Problems, Bipolar Disorder, Depression, Gastritis, HTN, Schizophrenia, Chronic Pain (Back Pain) Surgical History: Hernia Repair, Tonsillectomy - [facility] Procedures DETOXIFICATION SERVICES FOR SUBSTANCE ABUSE TREATMENT (12/26/15) Family History: States: Unknown Family Hx - Social History Hx Tobacco Use: No Hx Alcohol Use: Yes Hx Substance Use: No - Immunization History Hx Tetanus Toxoid Vaccination: No Hx Influenza Vaccination: No Hx Pneumococcal Vaccination: No Review Of Systems Except As Marked, All Systems Reviewed And Found Negative. Constitutional: Positive for: Other (ETOH intoxicated). Negative for: Fever, Chills Cardiovascular: Negative for: Chest Pain Respiratory: Negative for: Shortness of Breath Gastrointestinal: Negative for: Nausea, Vomiting, Abdominal Pain, Diarrhea Psych: Negative for: Suicidal ideation, Other (Homicidal ideation) Physical Exam - Physical Exam Appears: Non-toxic, No Acute Distress, Other (ETOH intoxicated. (+)AOB and ETOH bottle present with Pt) Skin: Warm, Dry Head: Atraumatic, Normacephalic Eye(s): bilateral: Normal Inspection Oral Mucosa: Moist Chest: Symmetrical Cardiovascular: Rhythm Regular, No Murmur Respiratory: Normal Breath Sounds, No Accessory Muscle Use, No Rales, No Rhonchi , No Wheezing Gastrointestinal/Abdominal: Soft, No Tenderness Back: Normal Inspection, No CVA Tenderness Neurological/Psych: Oriented x3, Normal Speech, Normal Cognition, Normal Motor, Normal Sensation, Other (No focal deficit) Gait: Steady ED Course And Treatment O2 Sat by Pulse Oximetry: 95 (RA) Pulse Ox Interpretation: Normal ED OBSERVATION Date of observation admission: 10/09/16 Time of observation admission: 20:25 - Observation admission statement Patient is being placed in observation because:: ETOH intoxicated - Goals of Observation Goals of observation are:: Sobriety Disposition Counseled Patient/Family Regarding: Diagnosis - Disposition Disposition: HOME/ ROUTINE Disposition Time: 05:36 Condition: STABLE - Clinical Impression Clinical Impression: Intoxication, Alcohol abuse - Scribe Statement The provider has reviewed the documentation as recorded by the Scribjackelyn hagen All medical record entries made by the Augustaibjackelyn were at my direction and personally dictated by me. I have reviewed the chart and agree that the record accurately reflects my personal performance of the history, physical exam, medical decision making, and the department course for this patient. I have also personally directed, reviewed, and agree with the discharge instructions and disposition.
[2016-10-10 05:52] VITALS: BP 159/90; PULSE 77; RESP 20; TEMP 97.8; O2SAT 97
== END 2016-10-10 05:35 | disposition home or self-care (01) ==
LOC: C.ER 20:07 → C.9OBSV 10-10 02:11
PROVIDERS: ADMIT Emergency Medicine; ATTEND Emergency Medicine
DX: F10.129 Alcohol abuse with intoxication, unspecified (principal); F31.9 Bipolar disorder, unspecified; I10 Essential (primary) hypertension; Y90.9 Presence of alcohol in blood, level not specified
CPT/HCPCS: 82948; G0378

== ENCOUNTER 2016-10-10 20:47 | Observation (INO) | payer MEDICARE ==
[2016-10-10 20:47] VITALS: BMI 20.7
--- NOTE | 2016-10-10 20:54 | C.PDOC ---
History Of Present Illness 70 y/o male brought to ED for public intoxication. Pt well known to ER staff with multiple prior similar presentations. Denies any trauma or injury. No other complaints at this time. Time Seen by Provider: 10/10/16 20:53 History Per: Patient History/Exam Limitations: no limitations Current Symptoms Are (Timing): Still Present Modifying Factor(s): Alcohol Associated Symptoms: denies: Suicidal Thoughts, Suicidal Plan Recent travel outside of the [place]: No Past Medical History Reviewed: Historical Data, Nursing Documentation, Vital Signs Vital Signs: Last Vital Signs Temp 98.1 F 10/11/16 01:56 Pulse 79 10/11/16 01:56 Resp 18 10/11/16 01:56 BP 118/71 10/11/16 01:56 Pulse Ox 98 10/11/16 01:56 - Medical History PMH: Anxiety, Asthma, Back Problems, Bipolar Disorder, Depression, Gastritis, HTN, Schizophrenia, Chronic Pain (Back Pain) Surgical History: Hernia Repair, Tonsillectomy - [facility] Procedures DETOXIFICATION SERVICES FOR SUBSTANCE ABUSE TREATMENT (12/26/15) Family History: States: Unknown Family Hx - Social History Hx Tobacco Use: No Hx Alcohol Use: Yes Hx Substance Use: No - Immunization History Hx Tetanus Toxoid Vaccination: No Hx Influenza Vaccination: No Hx Pneumococcal Vaccination: No Review Of Systems Constitutional: Negative for: Fever, Chills Cardiovascular: Negative for: Chest Pain Respiratory: Negative for: Cough Gastrointestinal: Negative for: Vomiting, Diarrhea Skin: Negative for: Rash Physical Exam - Physical Exam Appears: Non-toxic, No Acute Distress, Other (etoh on breath) Skin: Warm, Dry Head: Atraumatic Chest: Symmetrical Cardiovascular: Rhythm Regular Respiratory: No Rales, No Rhonchi, No Wheezing Gastrointestinal/Abdominal: Soft, No Tenderness, No Guarding, No Rebound Extremity: Normal ROM Neurological/Psych: Oriented x3, Normal Speech, Normal Cognition ED Course And Treatment O2 Sat by Pulse Oximetry: 97 (ra) Pulse Ox Interpretation: Normal ED OBSERVATION Discharge: Yes Date of observation admission: 10/10/16 Time of observation admission: 20:56 - Observation admission statement Patient is being placed in observation because:: acute alcohol intoxication - Goals of Observation Goals of observation are:: sobriety - Progress Note Progress Note: 10/10/16 20:56 vitals stable Disposition Counseled Patient/Family Regarding: Studies Performed, Diagnosis, Need For Followup - Disposition Disposition: HOME/ ROUTINE Disposition Time: 20:54 Condition: FAIR - Clinical Impression Clinical Impression: Alcohol abuse with intoxication - Scribe Statement The provider has reviewed the documentation as recorded by the Omar Green Provider Attestation: All medical record entries made by the Omar were at my direction and personally dictated by me. I have reviewed the chart and agree that the record accurately reflects my personal performance of the history, physical exam, medical decision making, and the department course for this patient. I have also personally directed, reviewed, and agree with the discharge instructions and disposition.
[2016-10-11 05:05] VITALS: O2SAT 97
[2016-10-11 05:24] VITALS: BP 128/76; PULSE 83; RESP 20; TEMP 98
== END 2016-10-11 05:05 | disposition home or self-care (01) ==
LOC: C.ER 20:47 → C.9OBSV 20:55
PROVIDERS: ADMIT Emergency Medicine; ATTEND Emergency Medicine
DX: F10.129 Alcohol abuse with intoxication, unspecified (principal); F31.9 Bipolar disorder, unspecified; I10 Essential (primary) hypertension; Y90.9 Presence of alcohol in blood, level not specified
CPT/HCPCS: 99285; G0378

== ENCOUNTER 2016-10-11 14:23 | Emergency (ER) | payer MEDICARE ==
[2016-10-11 14:23] VITALS: BMI 20.7
[2016-10-11 14:40] VITALS: RESP 16; TEMP 98.5
--- NOTE | 2016-10-11 17:14 | C.PDOC ---
History Of Present Illness Pt was BIBEMS due to public alcohol intoxication. Time Seen by Provider: 10/11/16 14:52 Chief Complaint (Nursing): Substance Abuse History Per: Patient, EMS Onset/Duration Of Symptoms: Unknown (today) Current Symptoms Are (Timing): Still Present Suicide/Self Injury Attempted (Context): None Modifying Factor(s): Alcohol Severity: Mild Associated Symptoms: denies: Suicidal Thoughts, Suicidal Plan Additional History Per: Prior Records Past Medical History Reviewed: Historical Data, Nursing Documentation, Vital Signs Vital Signs: Last Vital Signs Temp 98.5 F 10/11/16 14:37 Pulse 90 10/11/16 14:37 Resp 16 10/11/16 14:37 BP 98/64 L 10/11/16 14:37 Pulse Ox 97 10/11/16 14:37 - Medical History PMH: Anxiety, Asthma, Back Problems, Bipolar Disorder, Depression, Gastritis, HTN, Schizophrenia, Chronic Pain (Back Pain) Surgical History: Hernia Repair, Tonsillectomy - [facility] Procedures DETOXIFICATION SERVICES FOR SUBSTANCE ABUSE TREATMENT (12/26/15) Family History: States: Unknown Family Hx - Social History Hx Tobacco Use: No Hx Alcohol Use: Yes Hx Substance Use: No - Immunization History Hx Tetanus Toxoid Vaccination: No Hx Influenza Vaccination: No Hx Pneumococcal Vaccination: No Review Of Systems Cardiovascular: Negative for: Chest Pain Respiratory: Negative for: Shortness of Breath Gastrointestinal: Negative for: Vomiting, Abdominal Pain Musculoskeletal: Negative for: Neck Pain Neurological: Negative for: Weakness, Seizures Physical Exam - Physical Exam Appears: Non-toxic, No Acute Distress, Unkempt Skin: Normal Color, Warm, Dry, No Rash Head: Atraumatic, Normacephalic Eye(s): bilateral: PERRL, EOMI Neck: Normal ROM, Supple Cardiovascular: Rhythm Regular Respiratory: Normal Breath Sounds, No Accessory Muscle Use Gastrointestinal/Abdominal: Soft, No Tenderness Back: No CVA Tenderness Extremity: Normal ROM, No Deformity Neurological/Psych: Oriented x3, Normal Motor, Normal Sensation ED Course And Treatment O2 Sat by Pulse Oximetry: 97 Pulse Ox Interpretation: Normal Progress Note: Pt ate and drank in the ED. He is now clinically sober. AAOx3. Steady gait. Reassessment Condition: Improved Disposition Counseled Patient/Family Regarding: Diagnosis, Need For Followup - Disposition Referrals: [facility] [Outside] Disposition: HOME/ ROUTINE Disposition Time: 17:15 Condition: IMPROVED Additional Instructions: Avoid alcohol. Follow up in the clinic. Return to the ER if you develop worsening of symptoms or if you have any other concerns. Forms: General Discharge Instructions, Gen Discharge Inst Mauritanian - Clinical Impression Clinical Impression: Homelessness
[2016-10-11 17:15] VITALS: BP 114/75; PULSE 89
[2016-10-11 17:16] VITALS: O2SAT 97
== END 2016-10-11 17:22 | disposition home or self-care (01) ==
LOC: C.ER 14:23
DX: Z59.0 Homelessness (principal); I10 Essential (primary) hypertension; F41.9 Anxiety disorder, unspecified

== ENCOUNTER 2016-10-12 20:22 | Observation (INO) | payer MEDICARE ==
[2016-10-12 20:23] VITALS: BMI 20.7
[2016-10-12 20:29] VITALS: RESP 20
--- NOTE | 2016-10-12 22:34 | C.PDOC ---
History Of Present Illness Pt was BIBEMS due to public alcohol intoxication. Time Seen by Provider: 10/12/16 22:02 Chief Complaint (Nursing): Substance Abuse History Per: Patient, EMS Onset/Duration Of Symptoms: Unknown (tonight) Current Symptoms Are (Timing): Still Present Suicide/Self Injury Attempted (Context): None Modifying Factor(s): Alcohol Severity: Moderate Associated Symptoms: denies: Suicidal Thoughts, Suicidal Plan Additional History Per: Prior Records Past Medical History Reviewed: Historical Data, Nursing Documentation, Vital Signs Vital Signs: Last Vital Signs Temp 97.8 F 10/12/16 20:27 Pulse 90 10/12/16 20:27 Resp 20 10/12/16 20:27 BP 114/70 10/12/16 20:27 Pulse Ox 98 10/12/16 22:37 - Medical History PMH: Anxiety, Asthma, Back Problems, Bipolar Disorder, Depression, Gastritis, HTN, Schizophrenia, Chronic Pain (Back Pain) Other PMH: Alcohol abuse Surgical History: Hernia Repair, Tonsillectomy - [facility] Procedures DETOXIFICATION SERVICES FOR SUBSTANCE ABUSE TREATMENT (12/26/15) Family History: States: Unknown Family Hx - Social History Hx Tobacco Use: No Hx Alcohol Use: Yes Hx Substance Use: No - Immunization History Hx Tetanus Toxoid Vaccination: No Hx Influenza Vaccination: No Hx Pneumococcal Vaccination: No Review Of Systems Review Of Systems: ROS cannot be obtained secondary to pt's inabilty to answer questions. Physical Exam - Physical Exam Appears: No Acute Distress, Unkempt, Other (AOB) Skin: Normal Color, Warm, Dry Head: Atraumatic Eye(s): bilateral: PERRL Neck: Normal ROM, No Midline Cervical Tenderness, No Step Off Deformity, Supple Cardiovascular: Rhythm Regular Respiratory: Normal Breath Sounds, No Accessory Muscle Use Gastrointestinal/Abdominal: Soft Extremity: Normal ROM, No Deformity Neurological/Psych: Eyes Open With Command, Slow To Respond With Command, Other (Moving all extremities) Gait: Unable To Assess ED Course And Treatment O2 Sat by Pulse Oximetry: 98 Pulse Ox Interpretation: Normal Reassessment Condition: Improved ED OBSERVATION Discharge: Yes Date of observation admission: 10/12/16 Time of observation admission: 22:30 - Observation admission statement Patient is being placed in observation because:: Alcohol intoxication - Goals of Observation Goals of observation are:: Sobriety. - Progress Note Progress Note: 10/13/16 05:12 Pt was checked every 2 hours and remained stable. Pt is now clinically sober. AAOx3. Steady gait. Disposition Counseled Patient/Family Regarding: Studies Performed, Diagnosis, Need For Followup - Disposition Disposition: HOME/ ROUTINE Disposition Time: 05:13 Condition: IMPROVED - Clinical Impression Clinical Impression: Homelessness, Alcohol abuse
[2016-10-13 06:12] VITALS: BP 129/78; PULSE 69; TEMP 98.1; O2SAT 97
== END 2016-10-13 05:13 | disposition home or self-care (01) ==
LOC: C.ER 20:22 → C.9OBSV 22:37
PROVIDERS: ADMIT Emergency Medicine; ATTEND Emergency Medicine
DX: F10.129 Alcohol abuse with intoxication, unspecified (principal); F31.9 Bipolar disorder, unspecified; I10 Essential (primary) hypertension; Z59.0 Homelessness; Y90.9 Presence of alcohol in blood, level not specified
CPT/HCPCS: 99283; G0378

== ENCOUNTER 2016-10-14 12:09 | Observation (INO) | payer MEDICARE ==
[2016-10-14 12:09] VITALS: BMI 20.7
[2016-10-14 12:31] VITALS: RESP 20
[2016-10-14] MEDS ORDERED: Bacitracin 500 Units/gm Oint Foilpak UD TOP ONE (13:28)
--- NOTE | 2016-10-14 14:28 | C.PDOC ---
History Of Present Illness Pt was BIBEMS because he is homeless and found outside. He states he was drinking alcohol last nigh when he fell and hit his head. Time Seen by Provider: 10/14/16 13:22 Chief Complaint (Nursing): Substance Abuse History Per: Patient, EMS History/Exam Limitations: intoxication Onset/Duration Of Symptoms: Unknown (last night) Current Symptoms Are (Timing): Still Present Suicide/Self Injury Attempted (Context): None Modifying Factor(s): Alcohol Severity: Mild Associated Symptoms: denies: Suicidal Thoughts, Suicidal Plan Additional History Per: Prior Records Past Medical History Reviewed: Historical Data, Nursing Documentation, Vital Signs Vital Signs: Last Vital Signs Temp 97.4 F L 10/14/16 17:05 Pulse 68 10/14/16 17:05 Resp 20 10/14/16 17:05 BP 115/75 10/14/16 17:05 Pulse Ox 99 10/14/16 17:05 - Medical History PMH: Anxiety, Asthma, Back Problems, Bipolar Disorder, Depression, Gastritis, HTN, Schizophrenia, Chronic Pain (Back Pain) Surgical History: Hernia Repair, Tonsillectomy - [facility] Procedures DETOXIFICATION SERVICES FOR SUBSTANCE ABUSE TREATMENT (12/26/15) Family History: States: Unknown Family Hx - Social History Hx Tobacco Use: No Hx Alcohol Use: Yes Hx Substance Use: No - Immunization History Hx Tetanus Toxoid Vaccination: No Hx Influenza Vaccination: No Hx Pneumococcal Vaccination: No Review Of Systems Constitutional: Negative for: Fever, Weakness Cardiovascular: Negative for: Chest Pain Respiratory: Negative for: Shortness of Breath Gastrointestinal: Negative for: Vomiting, Abdominal Pain Musculoskeletal: Negative for: Neck Pain, Back Pain Neurological: Negative for: Weakness, Seizures Physical Exam - Physical Exam Appears: Non-toxic, No Acute Distress, Unkempt Skin: Normal Color, Warm, Dry Head: Abrasion (on left forehead) Eye(s): bilateral: PERRL Neck: Normal ROM, No Midline Cervical Tenderness, No Step Off Deformity, Supple Chest: Symmetrical, No Deformity Cardiovascular: Rhythm Regular Respiratory: Normal Breath Sounds, No Accessory Muscle Use Gastrointestinal/Abdominal: Soft Extremity: Normal ROM, No Deformity Neurological/Psych: Oriented x3, Normal Motor, Normal Sensation Gait: Unable To Assess ED Course And Treatment O2 Sat by Pulse Oximetry: 98 Pulse Ox Interpretation: Normal - CT Scan/US CT head Other Rad Studies (CT/US): Read By Radiologist, Radiology Report Reviewed CT/US Interpretation: IMPRESSION: Generalized atrophy. Nonspecific white matter changes. Reassessment Condition: Improved ED OBSERVATION Discharge: Yes Date of observation admission: 10/14/16 Time of observation admission: 13:30 - Observation admission statement Patient is being placed in observation because:: Alcohol intoxication. - Goals of Observation Goals of observation are:: Sobriety. - Progress Note Progress Note: 10/14/16 17:34 Pt is now clinically sober. AAOx3. Steady gait. He wants to be discharged now. Disposition Counseled Patient/Family Regarding: Studies Performed, Diagnosis, Need For Followup - Disposition Disposition: HOME/ ROUTINE Disposition Time: 17:34 Condition: IMPROVED - Clinical Impression Clinical Impression: Minor closed head injury, Alcohol abuse
--- NOTE | 2016-10-14 14:41 | CT ---
PROCEDURE: CT HEAD WITHOUT CONTRAST. HISTORY: States was drunk land night, fell and hit head. COMPARISON: Noncontrast head CT performed 09/19/16 and 01/27/16 TECHNIQUE: Axial computed tomography images were obtained through the head/brain without intravenous contrast. Radiation dose: Total exam DLP = 1001.25 mGy-cm. This CT exam was performed using one or more of the following dose reduction techniques: Automated exposure control, adjustment of the mA and/or kV according to patient size, and/or use of iterative reconstruction technique. FINDINGS: HEMORRHAGE: No intracranial hemorrhage. BRAIN: Diffuse atrophy with prominence of the ventricles and sulci noted. No mass effect or edema. Scattered periventricular and subcortical white matter hypodensities, which are nonspecific, but often seen with chronic microvascular ischemic disease. Please note that MRI with diffusion imaging is more sensitive in the detection of acute ischemic event. VENTRICLES: No hydrocephalus. CALVARIUM: Unremarkable. PARANASAL SINUSES: Unremarkable as visualized. No significant inflammatory changes. MASTOID AIR CELLS: Unremarkable as visualized. No inflammatory changes. OTHER FINDINGS: Opacification of bilateral external auditory canals, likely cerumen. IMPRESSION: Generalized atrophy. Nonspecific white matter changes.
[2016-10-14 17:06] VITALS: BP 115/75; PULSE 68; TEMP 97.4
[2016-10-14 17:35] VITALS: O2SAT 98
== END 2016-10-14 17:35 | disposition home or self-care (01) ==
LOC: C.ER 12:09 → C.9OBSV 15:14
PROVIDERS: ADMIT Emergency Medicine; ATTEND Emergency Medicine
DX: S09.90XA Unspecified injury of head, initial encounter (principal); W19.XXXA Unspecified fall, initial encounter; F10.10 Alcohol abuse, uncomplicated; I10 Essential (primary) hypertension; F31.9 Bipolar disorder, unspecified; Z59.0 Homelessness
CPT/HCPCS: 70450; G0378

== ENCOUNTER 2016-10-15 13:36 | Emergency (ER) | payer MEDICARE ==
[2016-10-15 13:36] VITALS: BMI 20.7
--- NOTE | 2016-10-15 14:47 | C.PDOC ---
History Of Present Illness 70 yr old male presents to the ER for alcohol intoxication. Patient is very well known to the ER with multiple ER visits for same complaints. Patient denies fever, chest pain, SOB, nausea, vomiting, weakness or numbness. Time Seen by Provider: 10/15/16 13:50 Chief Complaint (Nursing): Medical Clearance History Per: Patient History/Exam Limitations: no limitations Onset/Duration Of Symptoms: Persistent Past Medical History Reviewed: Historical Data, Nursing Documentation, Vital Signs Vital Signs: Last Vital Signs Temp 98.8 F 10/15/16 15:48 Pulse 86 10/15/16 15:48 Resp 16 10/15/16 15:48 BP 104/58 L 10/15/16 15:48 Pulse Ox 97 10/15/16 15:48 - Medical History PMH: Anxiety, Asthma, Back Problems, Bipolar Disorder, Depression, Gastritis, HTN, Schizophrenia, Chronic Pain (Back Pain) Surgical History: Hernia Repair, Tonsillectomy - [facility] Procedures DETOXIFICATION SERVICES FOR SUBSTANCE ABUSE TREATMENT (12/26/15) Family History: States: No Known Family Hx - Social History Hx Tobacco Use: No Hx Alcohol Use: Yes Hx Substance Use: No - Immunization History Hx Tetanus Toxoid Vaccination: No Hx Influenza Vaccination: No Hx Pneumococcal Vaccination: No Review Of Systems Except As Marked, All Systems Reviewed And Found Negative. Constitutional: Negative for: Fever Cardiovascular: Negative for: Chest Pain Respiratory: Negative for: Shortness of Breath Gastrointestinal: Negative for: Nausea, Vomiting Neurological: Negative for: Weakness, Numbness Physical Exam - Physical Exam Appears: Non-toxic, No Acute Distress, Unkempt Skin: Warm, Dry, No Rash Head: Atraumatic, Normacephalic Eye(s): bilateral: Normal Inspection, PERRL, EOMI Oral Mucosa: Moist Neck: Normal ROM, Supple Chest: Symmetrical, No Tenderness Cardiovascular: Rhythm Regular, No Friction Rub, No Murmur Respiratory: Normal Breath Sounds, No Rales, No Rhonchi, No Wheezing Gastrointestinal/Abdominal: Soft, No Tenderness Extremity: Normal ROM, No Swelling Neurological/Psych: Oriented x3, Normal Speech, Normal Motor Gait: Steady ED Course And Treatment O2 Sat by Pulse Oximetry: 95 (pn RA) Pulse Ox Interpretation: Normal Medical Decision Making Medical Decision Making: Patient reports improvement of symptoms. Abdomen is soft, non- tender and tolerating PO well. ambulatory in the Ed with steady gait. Disposition - Disposition Disposition: HOME/ ROUTINE Disposition Time: 15:48 Condition: GOOD Instructions: Alcohol Intoxication (DC) - Clinical Impression Clinical Impression: Intoxication - PA / HOME THEATER EXPERT / Resident Statement MD/DO has reviewed & agrees with the documentation as recorded. - Scribe Statement The provider has reviewed the documentation as recorded by the Scribe Juain Gonzalez All medical record entries made by the Scribe were at my direction and personally dictated by me. I have reviewed the chart and agree that the record accurately reflects my personal performance of the history, physical exam, medical decision making, and the department course for this patient. I have also personally directed, reviewed, and agree with the discharge instructions and disposition.
[2016-10-15 15:49] VITALS: BP 104/58; PULSE 86; RESP 16; TEMP 98.8
[2016-10-19 04:12] VITALS: O2SAT 95
== END 2016-10-15 15:48 | disposition home or self-care (01) ==
LOC: C.ER 13:36
DX: F10.129 Alcohol abuse with intoxication, unspecified (principal)

== ENCOUNTER 2016-10-15 20:05 | Observation (INO) | payer MEDICARE ==
[2016-10-15 20:06] VITALS: BMI 20.7
[2016-10-15 20:12] VITALS: RESP 20; O2SAT 98
--- NOTE | 2016-10-15 20:27 | C.PDOC ---
History Of Present Illness Patient was brought to the ED by EMS after being found wandering intoxicated. Patient denies any vomiting, diarrhea, or other physical complaints at this time. Time Seen by Provider: 10/15/16 20:26 Chief Complaint (Nursing): Substance Abuse History Per: Patient History/Exam Limitations: no limitations Onset/Duration Of Symptoms: Hrs Current Symptoms Are (Timing): Still Present Suicide/Self Injury Attempted (Context): None Modifying Factor(s): Alcohol Severity: Mild Pain Scale Rating Of: 4 Associated Symptoms: denies: Suicidal Thoughts, Suicidal Plan Involuntary Hold By: None Recent travel outside of the [place]: No Additional History Per: EMS Past Medical History Reviewed: Historical Data, Nursing Documentation, Vital Signs Vital Signs: Last Vital Signs Temp 98.2 F 10/15/16 20:10 Pulse 79 10/15/16 20:10 Resp 20 10/15/16 20:10 BP 121/80 10/15/16 20:10 Pulse Ox 98 10/15/16 20:34 - Medical History PMH: Anxiety, Asthma, Back Problems, Bipolar Disorder, Depression, Gastritis, HTN, Schizophrenia, Chronic Pain (Back Pain) Surgical History: Hernia Repair, Tonsillectomy - [facility] Procedures DETOXIFICATION SERVICES FOR SUBSTANCE ABUSE TREATMENT (12/26/15) Family History: States: Unknown Family Hx - Social History Hx Tobacco Use: No Hx Alcohol Use: Yes Hx Substance Use: No - Immunization History Hx Tetanus Toxoid Vaccination: No Hx Influenza Vaccination: No Hx Pneumococcal Vaccination: No Review Of Systems Constitutional: Negative for: Fever, Chills Cardiovascular: Negative for: Chest Pain, Palpitations Respiratory: Negative for: Cough, Shortness of Breath Gastrointestinal: Negative for: Nausea, Vomiting, Abdominal Pain, Diarrhea Neurological: Negative for: Headache Psych: Negative for: Suicidal ideation Physical Exam - Physical Exam Appears: Non-toxic, No Acute Distress Skin: Warm, Dry Head: Atraumatic, No Swelling, No Abrasion, No Laceration Eye(s): bilateral: Normal Inspection Oral Mucosa: Moist Neck: Supple Chest: Symmetrical, No Deformity Cardiovascular: Rhythm Regular Respiratory: No Rales, No Rhonchi, No Stridor, No Wheezing Gastrointestinal/Abdominal: Soft, No Tenderness, No Distention, No Guarding, No Rebound Extremity: Normal ROM, No Tenderness Neurological/Psych: Oriented x3 ED Course And Treatment O2 Sat by Pulse Oximetry: 98 (room air ) Pulse Ox Interpretation: Normal Reevaluation Time: 04:09 Reassessment Condition: Improved ED OBSERVATION Discharge: Yes Date of observation admission: 10/15/16 Time of observation admission: 20:28 - Observation admission statement Patient is being placed in observation because:: acute alcohol intoxication - Goals of Observation Goals of observation are:: sobriety - Progress Note Progress Note: 10/15/16 20:28 vitals stable 10/16/16 00:09 no complaints 10/16/16 04:10 vitasl stable, ambulating without difficulty Disposition Counseled Patient/Family Regarding: Studies Performed, Diagnosis - Disposition Disposition: HOME/ ROUTINE Disposition Time: 20:26 Condition: FAIR - Clinical Impression Clinical Impression: Alcohol abuse, Alcohol abuse with intoxication - Scribe Statement The provider has reviewed the documentation as recorded by the Augustaibjackelyn Connelly All medical record entries made by the Augustaibjackelyn were at my direction and personally dictated by me. I have reviewed the chart and agree that the record accurately reflects my personal performance of the history, physical exam, medical decision making, and the department course for this patient. I have also personally directed, reviewed, and agree with the discharge instructions and disposition.
[2016-10-16 04:41] VITALS: BP 126/76; PULSE 78; TEMP 98
== END 2016-10-16 04:10 | disposition home or self-care (01) ==
LOC: C.ER 20:05 → C.9OBSV 20:27
PROVIDERS: ADMIT Emergency Medicine; ATTEND Emergency Medicine
DX: F10.129 Alcohol abuse with intoxication, unspecified (principal); I10 Essential (primary) hypertension; Y90.9 Presence of alcohol in blood, level not specified
CPT/HCPCS: 82948; G0378

== ENCOUNTER 2016-10-16 12:16 | Observation (INO) | payer MEDICARE ==
[2016-10-16 12:16] VITALS: BMI 20.7
[2016-10-16 12:25] VITALS: RESP 20
--- NOTE | 2016-10-16 14:06 | C.PDOC ---
History Of Present Illness 70 y/o male brought to ED by EMS for Vagrancy and complaints of onset headache. Patient admits to drinking last night and denies fever, chills, n/v/d or any other complaints at this time. Time Seen by Provider: 10/16/16 13:25 Chief Complaint (Nursing): Medical Clearance History Per: Patient History/Exam Limitations: no limitations Onset/Duration Of Symptoms: Hrs Current Symptoms Are (Timing): Still Present Past Medical History Reviewed: Historical Data, Nursing Documentation, Vital Signs Vital Signs: Last Vital Signs Temp 98.1 F 10/16/16 12:24 Pulse 75 10/16/16 12:24 Resp 20 10/16/16 12:24 BP 106/65 10/16/16 12:24 Pulse Ox 96 10/16/16 14:08 - Medical History PMH: Anxiety, Asthma, Back Problems, Bipolar Disorder, Depression, Gastritis, HTN, Schizophrenia, Chronic Pain (Back Pain) Surgical History: Hernia Repair, Tonsillectomy - [facility] Procedures DETOXIFICATION SERVICES FOR SUBSTANCE ABUSE TREATMENT (12/26/15) Family History: States: Unknown Family Hx - Social History Hx Tobacco Use: No Hx Alcohol Use: Yes Hx Substance Use: No - Immunization History Hx Tetanus Toxoid Vaccination: No Hx Influenza Vaccination: No Hx Pneumococcal Vaccination: No Review Of Systems Except As Marked, All Systems Reviewed And Found Negative. Constitutional: Negative for: Fever, Chills Gastrointestinal: Negative for: Nausea, Vomiting, Diarrhea Neurological: Positive for: Headache. Negative for: Numbness, Dizziness Physical Exam - Physical Exam Appears: Non-toxic, No Acute Distress Skin: Normal Color, Warm Head: Atraumatic, Normacephalic Oral Mucosa: Moist Neck: Normal ROM Cardiovascular: Rhythm Regular, No Murmur Respiratory: Normal Breath Sounds, No Rales, No Rhonchi, No Wheezing Gastrointestinal/Abdominal: Soft, No Tenderness, No Guarding, No Rebound Extremity: Normal ROM, Capillary Refill (<2 seconds) Neurological/Psych: Oriented x3, Normal Speech Gait: Steady ED Course And Treatment O2 Sat by Pulse Oximetry: 96 (RA) Pulse Ox Interpretation: Normal Reevaluation Time: 20:46 Reassessment Condition: Improved Disposition - Disposition Disposition: HOME/ ROUTINE Disposition Time: 20:47 Condition: IMPROVED - Clinical Impression Clinical Impression: Alcohol abuse - Scribe Statement The provider has reviewed the documentation as recorded by the Scribe Maricsa Jo All medical record entries made by the Omar were at my direction and personally dictated by me. I have reviewed the chart and agree that the record accurately reflects my personal performance of the history, physical exam, medical decision making, and the department course for this patient. I have also personally directed, reviewed, and agree with the discharge instructions and disposition.
[2016-10-16 20:49] VITALS: BP 130/76; PULSE 78; TEMP 98.2; O2SAT 99
== END 2016-10-16 20:47 | disposition home or self-care (01) ==
LOC: C.ER 12:16 → C.9OBSV 14:02
PROVIDERS: ADMIT Emergency Medicine; ATTEND Emergency Medicine
DX: F10.10 Alcohol abuse, uncomplicated (principal); I10 Essential (primary) hypertension; Z59.0 Homelessness; Y90.9 Presence of alcohol in blood, level not specified

== ENCOUNTER 2016-10-17 18:41 | Observation (INO) | payer MEDICARE, OTHER ==
[2016-10-17 18:42] VITALS: BMI 20.7
[2016-10-17 18:52] VITALS: O2SAT 97
--- NOTE | 2016-10-17 19:59 | C.PDOC ---
History Of Present Illness 70 y/o male presents to the ED with alcohol intoxication. Pt with frequent visits to ED for the same. Pt denies trauma or any physical complaints at this time. Time Seen by Provider: 10/17/16 19:47 Chief Complaint (Nursing): Substance Abuse History Per: Patient History/Exam Limitations: no limitations Current Symptoms Are (Timing): Still Present Suicide/Self Injury Attempted (Context): None Modifying Factor(s): Alcohol Severity: Mild Involuntary Hold By: None Recent travel outside of the [place]: No Past Medical History Reviewed: Historical Data, Nursing Documentation, Vital Signs Vital Signs: Last Vital Signs Temp 98.1 F 10/17/16 23:50 Pulse 82 10/17/16 23:50 Resp 20 10/17/16 23:50 BP 136/78 10/17/16 23:50 Pulse Ox 97 10/17/16 23:50 - Medical History PMH: Anxiety, Asthma, Back Problems, Bipolar Disorder, Depression, Gastritis, HTN, Schizophrenia, Chronic Pain (Back Pain) Surgical History: Hernia Repair, Tonsillectomy - [facility] Procedures DETOXIFICATION SERVICES FOR SUBSTANCE ABUSE TREATMENT (12/26/15) Family History: States: Unknown Family Hx - Social History Hx Tobacco Use: No Hx Alcohol Use: Yes Hx Substance Use: No - Immunization History Hx Tetanus Toxoid Vaccination: No Hx Influenza Vaccination: No Hx Pneumococcal Vaccination: No Review Of Systems Except As Marked, All Systems Reviewed And Found Negative. Physical Exam - Physical Exam Additional Physical Exam Comments: Constitutional: No acute distress. Head: Normocephalic. Atraumatic. Eyes: PERRL. Neck: Supple. Cardiovascular: Regular rate. Radial pulse 2+ bilaterally. Chest: No tenderness. Respiratory: Clear to auscultation bilaterally. GI: Soft. Nontender. Nondistended. Back: No CVA tenderness. Musculoskeletal: No tenderness or swelling of extremities. Skin: No rash. Neurologic: Alert, no focal deficit. ED Course And Treatment O2 Sat by Pulse Oximetry: 97 (room air) Pulse Ox Interpretation: Normal ED OBSERVATION Discharge: Yes Time of observation admission: 20:00 - Observation admission statement Patient is being placed in observation because:: alcohol intoxication - Goals of Observation Goals of observation are:: sobriety - Progress Note Progress Note: 1999 Sleeping. 2200 Sleeping. 0000 Sleeping. 0200 Sleeping. 0400 Sleeping. 0600 Awake, alert, steady on feet. Will discharge. Disposition - Disposition Disposition: HOME/ ROUTINE Disposition Time: 06:00 Condition: STABLE - Clinical Impression Clinical Impression: Intoxication - Scribe Statement The provider has reviewed the documentation as recorded by the Scribe Isaac Sweeney Provider Attestation: All medical record entries made by the Scribe were at my direction and personally dictated by me. I have reviewed the chart and agree that the record accurately reflects my personal performance of the history, physical exam, medical decision making, and the department course for this patient. I have also personally directed, reviewed, and agree with the discharge instructions and disposition.
[2016-10-18 06:20] VITALS: RESP 16
[2016-10-18 06:22] VITALS: PULSE 82
[2016-10-18 06:24] VITALS: BP 130/70; TEMP 98.3
== END 2016-10-18 05:36 | disposition home or self-care (01) ==
LOC: C.ER 18:41 → C.9OBSV 20:00
PROVIDERS: ADMIT Student in an Organized Health Care Education/Training Program; ATTEND Student in an Organized Health Care Education/Training Program
DX: F10.129 Alcohol abuse with intoxication, unspecified (principal); F31.9 Bipolar disorder, unspecified; Y90.9 Presence of alcohol in blood, level not specified
CPT/HCPCS: 82948; 99285; G0378

== ENCOUNTER 2016-10-18 22:21 | Observation (INO) | payer MEDICARE ==
[2016-10-18 22:22] VITALS: BMI 20.7
--- NOTE | 2016-10-19 02:56 | C.PDOC ---
History Of Present Illness 70 year old male was brought to the ED by EMS after being found wandering intoxicated. Patient admits to drinking alcohol and denies any suicidal thoughts or physical complaints at this time. Time Seen by Provider: 10/18/16 22:58 Chief Complaint (Nursing): Substance Abuse History Per: Patient, EMS History/Exam Limitations: no limitations Onset/Duration Of Symptoms: Hrs Current Symptoms Are (Timing): Still Present Suicide/Self Injury Attempted (Context): None Modifying Factor(s): Alcohol Associated Symptoms: denies: Suicidal Thoughts, Suicidal Plan Involuntary Hold By: None Recent travel outside of the [place]: No Additional History Per: Prior Records Past Medical History Reviewed: Historical Data, Nursing Documentation, Vital Signs Vital Signs: Last Vital Signs Temp 98.2 F 10/18/16 22:27 Pulse 81 10/18/16 22:27 Resp 16 10/18/16 22:27 BP 95/59 L 10/18/16 22:27 Pulse Ox 95 10/19/16 05:07 - Medical History PMH: Anxiety, Asthma, Back Problems, Bipolar Disorder, Depression, Gastritis, HTN, Schizophrenia, Chronic Pain (Back Pain) Surgical History: Hernia Repair, Tonsillectomy - [facility] Procedures DETOXIFICATION SERVICES FOR SUBSTANCE ABUSE TREATMENT (12/26/15) Family History: States: No Known Family Hx - Social History Hx Tobacco Use: No Hx Alcohol Use: Yes Hx Substance Use: No - Immunization History Hx Tetanus Toxoid Vaccination: No Hx Influenza Vaccination: No Hx Pneumococcal Vaccination: No Review Of Systems Constitutional: Negative for: Fever, Chills Cardiovascular: Negative for: Chest Pain, Palpitations Respiratory: Negative for: Cough, Shortness of Breath Gastrointestinal: Negative for: Nausea, Vomiting, Abdominal Pain, Diarrhea Neurological: Negative for: Headache, Dizziness Psych: Negative for: Suicidal ideation Physical Exam - Physical Exam Appears: Non-toxic, No Acute Distress Skin: Warm, Dry, No Pale, No Rash Head: Atraumatic, Normacephalic Eye(s): bilateral: Normal Inspection, PERRL, EOMI Oral Mucosa: Moist Neck: Normal ROM, Supple Chest: Symmetrical, No Deformity Cardiovascular: Rhythm Regular, No Friction Rub, No Murmur Respiratory: No Rales, No Rhonchi, No Stridor, No Wheezing Gastrointestinal/Abdominal: Soft, No Tenderness, No Distention, No Guarding, No Rebound Extremity: Normal ROM, No Tenderness Neurological/Psych: Oriented x3, Normal Motor Gait: Steady ED Course And Treatment O2 Sat by Pulse Oximetry: 95 (room air ) Pulse Ox Interpretation: Normal ED OBSERVATION Discharge: Yes Date of observation admission: 10/18/16 Time of observation admission: 12:30 - Observation admission statement Patient is being placed in observation because:: intoxication - Goals of Observation Goals of observation are:: sobriety - Progress Note Progress Note: 10/19/16 12:30 Patient is resting comfortably with no acute distress. 10/19/16 05:29 On re-exam, the patient is ambulatory in steady gait and normal speech. Disposition - Disposition Disposition: HOME/ ROUTINE Disposition Time: 05:29 Condition: STABLE - Clinical Impression Clinical Impression: Alcohol intoxication - Scribe Statement The provider has reviewed the documentation as recorded by the Scribjackelyn Connelly All medical record entries made by the Augustaibjackelyn were at my direction and personally dictated by me. I have reviewed the chart and agree that the record accurately reflects my personal performance of the history, physical exam, medical decision making, and the department course for this patient. I have also personally directed, reviewed, and agree with the discharge instructions and disposition.
[2016-10-19 05:56] VITALS: BP 111/57; PULSE 81; RESP 19; TEMP 98; O2SAT 97
== END 2016-10-19 05:31 | disposition home or self-care (01) ==
LOC: C.ER 22:21 → C.9OBSV 10-19 00:52
PROVIDERS: ADMIT Emergency Medicine; ATTEND Emergency Medicine
DX: F10.229 Alcohol dependence with intoxication, unspecified (principal); J45.909 Unspecified asthma, uncomplicated; F31.9 Bipolar disorder, unspecified; F32.9 Major depressive disorder, single episode, unspecified; I10 Essential (primary) hypertension; F20.9 Schizophrenia, unspecified
CPT/HCPCS: 99284; G0378

== ENCOUNTER 2016-10-21 14:44 | Observation (INO) | payer MEDICARE ==
[2016-10-21 14:44] VITALS: BMI 20.7
[2016-10-21 14:58] VITALS: BP 104/65; PULSE 81; RESP 20; TEMP 98.5; O2SAT 95
--- NOTE | 2016-10-21 16:20 | C.PDOC ---
History Of Present Illness 70 y/o male BIBA for acute alcohol intoxication. Patient is well known to ED, has multiple hospital for alcohol intoxication. Patient admits to drinking alcohol earlier today. Time Seen by Provider: 10/21/16 14:57 Chief Complaint (Nursing): Substance Abuse History Per: Patient History/Exam Limitations: intoxication Onset/Duration Of Symptoms: Unknown Current Symptoms Are (Timing): Still Present Suicide/Self Injury Attempted (Context): None Modifying Factor(s): Alcohol Severity: Mild Associated Symptoms: denies: Suicidal Thoughts, Suicidal Plan Involuntary Hold By: Emergency Physician Additional History Per: Patient Past Medical History Reviewed: Historical Data, Nursing Documentation, Vital Signs Vital Signs: Last Vital Signs Temp 98.5 F 10/21/16 14:56 Pulse 81 10/21/16 14:56 Resp 20 10/21/16 14:56 BP 104/65 10/21/16 14:56 Pulse Ox 95 10/21/16 17:21 - Medical History PMH: Anxiety, Asthma, Back Problems, Bipolar Disorder, Depression, Gastritis, HTN, Schizophrenia, Chronic Pain (Back Pain) Surgical History: Hernia Repair, Tonsillectomy - [facility] Procedures DETOXIFICATION SERVICES FOR SUBSTANCE ABUSE TREATMENT (12/26/15) Family History: States: No Known Family Hx - Social History Hx Tobacco Use: No Hx Alcohol Use: Yes Hx Substance Use: No - Immunization History Hx Tetanus Toxoid Vaccination: No Hx Influenza Vaccination: No Hx Pneumococcal Vaccination: No Review Of Systems Review Of Systems: ROS cannot be obtained secondary to pt's inabilty to answer questions. Physical Exam - Physical Exam Appears: Non-toxic, No Acute Distress, Other (+intoxicated ) Skin: Normal Color, Warm, Dry Head: Normacephalic Eye(s): bilateral: Normal Inspection Oral Mucosa: Moist, Other (+alcohol on breath ) Neck: Supple Cardiovascular: Rhythm Regular Respiratory: Normal Breath Sounds, No Rales, No Rhonchi, No Wheezing Gastrointestinal/Abdominal: Normal Exam, Bowel Sounds, Soft, No Tenderness Extremity: Normal ROM, No Deformity Neurological/Psych: Other (intoxicated, awake, alert, moving all 4 extremities spontaneously) Gait: Unsteady ED Course And Treatment O2 Sat by Pulse Oximetry: 95 (on RA) Pulse Ox Interpretation: Normal Progress Note: Accucheck ordered and reviewed. Patient placed in ED observation pending sobriety. Reevaluation Time: 16:20 Reassessment Condition: Improved (Patient reassessed, is currently AAOx3, ambulating normally in the ED. Patient clinically sober, will discharge.) Disposition Counseled Patient/Family Regarding: Diagnosis, Need For Followup - Disposition Disposition: HOME/ ROUTINE Disposition Time: 16:20 Condition: STABLE - Clinical Impression Clinical Impression: Alcohol abuse with intoxication - Scribe Statement The provider has reviewed the documentation as recorded by the Scribe (Chrissy Leiva) Provider Attestation: All medical record entries made by the Scribe were at my direction and personally dictated by me. I have reviewed the chart and agree that the record accurately reflects my personal performance of the history, physical exam, medical decision making, and the department course for this patient. I have also personally directed, reviewed, and agree with the discharge instructions and disposition.
== END 2016-10-21 16:19 | disposition home or self-care (01) ==
LOC: C.ER 14:44 → C.9OBSV 15:33
PROVIDERS: ADMIT Emergency Medicine; ATTEND Emergency Medicine
DX: F10.129 Alcohol abuse with intoxication, unspecified (principal); F20.9 Schizophrenia, unspecified; F31.9 Bipolar disorder, unspecified; I10 Essential (primary) hypertension
CPT/HCPCS: 99283; G0378

== ENCOUNTER 2016-11-06 17:56 | Observation (INO) | payer MEDICARE ==
[2016-11-06 17:57] VITALS: BMI 24.2
[2016-11-06 18:28] VITALS: RESP 18
--- NOTE | 2016-11-06 19:25 | C.PDOC ---
History Of Present Illness Patient presents to the ER with acute ETOH intoxication. Denies physical complaints at this time. Time Seen by Provider: 11/06/16 19:24 Chief Complaint (Nursing): Substance Abuse History Per: Patient History/Exam Limitations: no limitations Onset/Duration Of Symptoms: Hrs Current Symptoms Are (Timing): Still Present Suicide/Self Injury Attempted (Context): None Modifying Factor(s): Alcohol Severity: None Pain Scale Rating Of: 0 Associated Symptoms: denies: Depression, Suicidal Thoughts, Suicidal Plan Recent travel outside of the [place]: No Past Medical History Reviewed: Historical Data, Nursing Documentation, Vital Signs Vital Signs: Last Vital Signs Temp 97.3 F L 11/07/16 04:23 Pulse 66 11/07/16 04:23 Resp 18 11/07/16 04:23 BP 129/75 11/07/16 04:23 Pulse Ox 98 11/07/16 04:23 - Medical History PMH: Anxiety, Asthma, Back Problems, Bipolar Disorder, Depression, Gastritis, HTN, Schizophrenia, Chronic Pain (Back Pain) Surgical History: Hernia Repair, Tonsillectomy - [facility] Procedures DETOXIFICATION SERVICES FOR SUBSTANCE ABUSE TREATMENT (12/26/15) Family History: States: Unknown Family Hx - Social History Hx Tobacco Use: No Hx Alcohol Use: Yes Hx Substance Use: No - Immunization History Hx Tetanus Toxoid Vaccination: No Hx Influenza Vaccination: No Hx Pneumococcal Vaccination: No Review Of Systems Constitutional: Negative for: Fever, Chills Gastrointestinal: Negative for: Nausea, Vomiting, Diarrhea Physical Exam - Physical Exam Appears: Non-toxic, Other (ETOH on breath) Skin: Warm, Dry Oral Mucosa: Moist Chest: Symmetrical, No Tenderness Cardiovascular: Rhythm Regular, No Murmur Respiratory: No Rales, No Rhonchi, No Wheezing Gastrointestinal/Abdominal: Soft, No Tenderness Neurological/Psych: Oriented x3 ED Course And Treatment O2 Sat by Pulse Oximetry: 95 (Room air) Pulse Ox Interpretation: Normal ED OBSERVATION Discharge: Yes Date of observation admission: 11/06/16 Time of observation admission: 19:25 - Observation admission statement Patient is being placed in observation because:: Acute ETOH intoxication - Goals of Observation Goals of observation are:: Sobriety - Progress Note Progress Note: 11/06/16 23:24 vitals stable 11/07/16 02:25 arousable Disposition Counseled Patient/Family Regarding: Studies Performed, Diagnosis - Disposition Disposition: HOME/ ROUTINE Disposition Time: 19:25 Condition: FAIR - Clinical Impression Clinical Impression: Alcohol dependence, Alcohol abuse with intoxication - Scribe Statement The provider has reviewed the documentation as recorded by the Scribjackelyn Huang All medical record entries made by the Augustaibe were at my direction and personally dictated by me. I have reviewed the chart and agree that the record accurately reflects my personal performance of the history, physical exam, medical decision making, and the department course for this patient. I have also personally directed, reviewed, and agree with the discharge instructions and disposition.
[2016-11-07 04:25] VITALS: BP 129/75; PULSE 66; TEMP 97.3
[2016-11-07 05:35] VITALS: O2SAT 95
== END 2016-11-07 06:02 | disposition home or self-care (01) ==
LOC: C.ER 17:56 → C.9OBSV 19:25
PROVIDERS: ADMIT Emergency Medicine; ATTEND Emergency Medicine
DX: F10.129 Alcohol abuse with intoxication, unspecified (principal); F31.9 Bipolar disorder, unspecified

== ENCOUNTER 2016-11-07 15:41 | Emergency (ER) | payer MEDICARE ==
[2016-11-07 16:02] VITALS: BMI 30.4
[2016-11-07 16:07] VITALS: O2SAT 99
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
[2016-11-07 17:57] VITALS: BP 105/68; PULSE 72; RESP 18; TEMP 98.2
== END 2016-11-07 18:25 | disposition home or self-care (01) ==
LOC: C.ER 15:41
DX: F10.10 Alcohol abuse, uncomplicated (principal); Y90.9 Presence of alcohol in blood, level not specified; Z59.0 Homelessness

== ENCOUNTER 2016-11-08 21:08 | Emergency (ER) | payer MEDICARE ==
[2016-11-08 21:08] VITALS: BMI 30.4
[2016-11-08 21:26] VITALS: BP 93/55; PULSE 88; RESP 16; TEMP 98.5; O2SAT 96
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
== END 2016-11-08 21:55 | disposition home or self-care (01) ==
LOC: C.ER 21:08
DX: F10.10 Alcohol abuse, uncomplicated (principal); Y90.9 Presence of alcohol in blood, level not specified; Z76.5 Malingerer [conscious simulation]

== ENCOUNTER 2016-11-09 11:22 | Emergency (ER) | payer MEDICARE ==
[2016-11-09 11:31] VITALS: BP 106/70; PULSE 50; RESP 18; TEMP 98; O2SAT 100
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
[2016-11-10 17:19] VITALS: BMI 23.3
== END 2016-11-09 11:44 | disposition left against medical advice (07) ==
LOC: C.ER 11:22
DX: F19.10 Other psychoactive substance abuse, uncomplicated (principal); Z02.9 Encounter for administrative examinations, unspecified

== ENCOUNTER 2016-11-09 12:16 | Observation (INO) | payer MEDICARE ==
[2016-11-09 12:21] VITALS: BMI 23.3
[2016-11-09 12:23] VITALS: O2SAT 96
--- NOTE | 2016-11-09 12:24 | C.PDOC ---
Time Seen by Provider: 11/09/16 12:20 Chief Complaint (Nursing): Medical Clearance Past Medical History Reviewed: Historical Data, Nursing Documentation, Vital Signs - Medical History PMH: Anxiety, Asthma, Back Problems, Bipolar Disorder, Depression, Gastritis, HTN, Schizophrenia, Chronic Pain (Back Pain) Surgical History: Hernia Repair, Tonsillectomy - [facility] Procedures DETOXIFICATION SERVICES FOR SUBSTANCE ABUSE TREATMENT (12/26/15) Family History: States: No Known Family Hx - Social History Hx Tobacco Use: No Hx Alcohol Use: Yes Hx Substance Use: No - Immunization History Hx Tetanus Toxoid Vaccination: No Hx Influenza Vaccination: No Hx Pneumococcal Vaccination: No - Scribe Statement The provider has reviewed the documentation as recorded by the Scribe (Liseth Bañuelos)
--- NOTE | 2016-11-09 12:27 | C.PDOC ---
History Of Present Illness 70 y/o male brought to the emergency department by EMS for alcohol intoxication. Patient has h/o multiple prior visits for intoxication. He has no current physical complaints. Time Seen by Provider: 11/09/16 12:20 Chief Complaint (Nursing): Medical Clearance History Per: Patient, EMS History/Exam Limitations: intoxication Past Medical History Reviewed: Historical Data, Nursing Documentation, Vital Signs Vital Signs: Last Vital Signs Temp 98.5 F 11/09/16 12:21 Pulse 81 11/09/16 12:21 Resp 18 11/09/16 12:21 BP 106/66 11/09/16 12:21 Pulse Ox 96 11/09/16 12:27 - Medical History PMH: Anxiety, Asthma, Back Problems, Bipolar Disorder, Depression, Gastritis, HTN, Schizophrenia, Chronic Pain (Back Pain) Surgical History: Hernia Repair, Tonsillectomy - [facility] Procedures DETOXIFICATION SERVICES FOR SUBSTANCE ABUSE TREATMENT (12/26/15) Family History: States: No Known Family Hx - Social History Hx Tobacco Use: No Hx Alcohol Use: Yes Hx Substance Use: No - Immunization History Hx Tetanus Toxoid Vaccination: No Hx Influenza Vaccination: No Hx Pneumococcal Vaccination: No Review Of Systems Except As Marked, All Systems Reviewed And Found Negative. Cardiovascular: Negative for: Chest Pain Respiratory: Negative for: Shortness of Breath Gastrointestinal: Negative for: Nausea, Vomiting, Abdominal Pain Psych: Negative for: Suicidal ideation Physical Exam - Physical Exam Appears: Well, Non-toxic, No Acute Distress Skin: Warm, Dry, No Rash Head: Normacephalic Cardiovascular: Rhythm Regular Respiratory: Normal Breath Sounds, No Rales, No Rhonchi, No Wheezing Extremity: Normal ROM Extremity: Bilateral: Atraumatic, Normal Color And Temperature, Normal ROM Neurological/Psych: Other (awake, alert, intoxicated, moving all 4 extremities spontaneously) ED Course And Treatment O2 Sat by Pulse Oximetry: 96 (RA) Pulse Ox Interpretation: Normal Progress Note: Accucheck ordered. Patient placed in ED observation pending sobriety. Disposition - Disposition Disposition: HOME/ ROUTINE Disposition Time: 13:00 Condition: STABLE - Clinical Impression Clinical Impression: Alcohol intoxication - Scribe Statement The provider has reviewed the documentation as recorded by the Scribe (Liseth Bañuelos) All medical record entries made by the Scribe were at my direction and personally dictated by me. I have reviewed the chart and agree that the record accurately reflects my personal performance of the history, physical exam, medical decision making, and the department course for this patient. I have also personally directed, reviewed, and agree with the discharge instructions and disposition. Physician Patient Turnover Patient Signed Over To: Chuckie Sanchez Jr. Handoff Comments: pending sobriety
[2016-11-09 16:55] VITALS: BP 110/69; PULSE 89; RESP 16; TEMP 97.6
== END 2016-11-09 16:49 | disposition home or self-care (01) ==
LOC: C.ER 12:16 → C.9OBSV 12:57
PROVIDERS: ADMIT Emergency Medicine; ATTEND Emergency Medicine
DX: F10.129 Alcohol abuse with intoxication, unspecified (principal); I10 Essential (primary) hypertension; Y90.9 Presence of alcohol in blood, level not specified
CPT/HCPCS: 82948; 99283; G0378

== ENCOUNTER 2016-11-12 21:28 | Observation (INO) | payer MEDICARE ==
[2016-11-12 21:29] VITALS: BMI 23.3
--- NOTE | 2016-11-12 22:12 | C.PDOC ---
History Of Present Illness A 70 y/o M here for acute alcohol intoxication and wants a place to stay. Pt has numerous visits in the ER for the similar complaint. Denies suicidal, homicidal ideation, or any physical complaints at this time. Time Seen by Provider: 11/12/16 22:11 History Per: Patient History/Exam Limitations: no limitations Onset/Duration Of Symptoms: Hrs Current Symptoms Are (Timing): Still Present Suicide/Self Injury Attempted (Context): None Modifying Factor(s): Alcohol Severity: Mild Associated Symptoms: denies: Suicidal Thoughts, Suicidal Plan Involuntary Hold By: None Recent travel outside of the [place]: No Additional History Per: Patient Past Medical History Reviewed: Historical Data, Nursing Documentation, Vital Signs - Medical History PMH: Anxiety, Asthma, Back Problems, Bipolar Disorder, Depression, Gastritis, HTN, Schizophrenia, Chronic Pain (Back Pain) Surgical History: Hernia Repair, Tonsillectomy - [facility] Procedures DETOXIFICATION SERVICES FOR SUBSTANCE ABUSE TREATMENT (12/26/15) Family History: States: Unknown Family Hx - Social History Hx Tobacco Use: No Hx Alcohol Use: Yes Hx Substance Use: No - Immunization History Hx Tetanus Toxoid Vaccination: No Hx Influenza Vaccination: No Hx Pneumococcal Vaccination: No Review Of Systems Constitutional: Positive for: Other (Acute alcohol intoxication). Negative for : Fever, Chills Cardiovascular: Negative for: Chest Pain Respiratory: Negative for: Shortness of Breath Gastrointestinal: Negative for: Nausea, Vomiting, Abdominal Pain, Diarrhea Skin: Negative for: Rash Psych: Negative for: Suicidal ideation, Other (Homicidal ideation) Physical Exam - Physical Exam Appears: Non-toxic, No Acute Distress, Other ((+) AOB, Acute alcohol intoxication) Skin: Warm, Dry Head: Normacephalic Neck: Supple Cardiovascular: Rhythm Regular Respiratory: No Rales, No Rhonchi, No Wheezing Gastrointestinal/Abdominal: Soft, No Tenderness Neurological/Psych: Oriented x3 (Awake and alert) Gait: Unsteady ED Course And Treatment O2 Sat by Pulse Oximetry: 98 Pulse Ox Interpretation: Normal Reevaluation Time: 05:09 Reassessment Condition: Improved ED OBSERVATION Discharge: Yes Date of observation admission: 11/12/16 Time of observation admission: 22:19 - Observation admission statement Patient is being placed in observation because:: Acute alcohol intoxication - Goals of Observation Goals of observation are:: Sobriety of alcohol intoxication - Progress Note Progress Note: 11/12/16 22:34 vitals stable 11/13/16 02:09 no complaints Disposition Counseled Patient/Family Regarding: Studies Performed, Diagnosis, Need For Followup - Disposition Disposition: HOME/ ROUTINE Disposition Time: 22:12 Condition: FAIR - Clinical Impression Clinical Impression: Alcoholism /alcohol abuse, Alcohol abuse with intoxication - Scribe Statement The provider has reviewed the documentation as recorded by the Scribjackelyn hagen All medical record entries made by the Augustaibjackelyn were at my direction and personally dictated by me. I have reviewed the chart and agree that the record accurately reflects my personal performance of the history, physical exam, medical decision making, and the department course for this patient. I have also personally directed, reviewed, and agree with the discharge instructions and disposition.
[2016-11-13 05:32] VITALS: O2SAT 98
== END 2016-11-13 05:09 | disposition home or self-care (01) ==
LOC: C.ER 21:28 → C.9OBSV 22:34
PROVIDERS: ADMIT Emergency Medicine; ATTEND Emergency Medicine
DX: F10.129 Alcohol abuse with intoxication, unspecified (principal); F20.9 Schizophrenia, unspecified; F31.9 Bipolar disorder, unspecified; I10 Essential (primary) hypertension; J45.909 Unspecified asthma, uncomplicated; F41.9 Anxiety disorder, unspecified; F32.89 Other specified depressive episodes; K29.70 Gastritis, unspecified, without bleeding; M54.9 Dorsalgia, unspecified; G89.29 Other chronic pain; Y90.8 Blood alcohol level of 240 mg/100 ml or more
CPT/HCPCS: 82948; 99281; G0378

== ENCOUNTER 2016-11-13 19:36 | Observation (INO) | payer MEDICARE ==
[2016-11-13 19:36] VITALS: BMI 23.3
--- NOTE | 2016-11-13 19:51 | C.PDOC ---
History Of Present Illness A 70 y/o M here for acute alcohol intoxication and wants a place to stay. Pt has numerous visits in the ER for the similar complaint. Denies suicidal, homicidal ideation, or any physical complaints at this time. Time Seen by Provider: 11/13/16 19:48 History Per: Patient History/Exam Limitations: no limitations Onset/Duration Of Symptoms: Hrs Current Symptoms Are (Timing): Still Present Suicide/Self Injury Attempted (Context): None Modifying Factor(s): Alcohol Severity: Mild Associated Symptoms: denies: Suicidal Thoughts, Suicidal Plan Involuntary Hold By: None Recent travel outside of the [place]: No Additional History Per: Patient Past Medical History Reviewed: Historical Data, Nursing Documentation, Vital Signs Vital Signs: Last Vital Signs Temp 98.0 F 11/14/16 05:01 Pulse 61 11/14/16 05:01 Resp 16 11/14/16 05:01 BP 123/77 11/14/16 05:01 Pulse Ox 99 11/14/16 05:01 - Medical History PMH: Anxiety, Asthma, Back Problems, Bipolar Disorder, Depression, Gastritis, HTN, Schizophrenia, Chronic Pain (Back Pain) Surgical History: Hernia Repair, Tonsillectomy - [facility] Procedures DETOXIFICATION SERVICES FOR SUBSTANCE ABUSE TREATMENT (12/26/15) Family History: States: Unknown Family Hx - Social History Hx Tobacco Use: No Hx Alcohol Use: Yes Hx Substance Use: No - Immunization History Hx Tetanus Toxoid Vaccination: No Hx Influenza Vaccination: No Hx Pneumococcal Vaccination: No Review Of Systems Except As Marked, All Systems Reviewed And Found Negative. Constitutional: Positive for: Other (Acute alcohol intoxication) Psych: Negative for: Suicidal ideation, Other (Homicidal ideation) Physical Exam - Physical Exam Appears: Non-toxic, No Acute Distress, Other ((+) AOB, acute alcohol intoxication) Skin: Warm, Dry Head: Atraumatic, Normacephalic Cardiovascular: Rhythm Regular Respiratory: Normal Breath Sounds, No Rales, No Rhonchi, No Wheezing Gastrointestinal/Abdominal: Soft, No Tenderness Neurological/Psych: Oriented x3 Gait: Unsteady ED Course And Treatment Pulse Ox Interpretation: Normal Medical Decision Making Medical Decision Making: Impression: A 70 y/o M here for acute alcohol intoxication and wants a place to stay. Plans: -ED obs -Reassess ED OBSERVATION Date of observation admission: 11/13/16 Time of observation admission: 19:52 - Observation admission statement Patient is being placed in observation because:: Acute alcohol intoxication - Goals of Observation Goals of observation are:: Sobriety Disposition - Disposition Disposition: HOME/ ROUTINE Disposition Time: 05:50 Condition: STABLE - Clinical Impression Clinical Impression: Intoxication, Homelessness - Scribe Statement The provider has reviewed the documentation as recorded by the Scribe Latosha hagen All medical record entries made by the Augustaibe were at my direction and personally dictated by me. I have reviewed the chart and agree that the record accurately reflects my personal performance of the history, physical exam, medical decision making, and the department course for this patient. I have also personally directed, reviewed, and agree with the discharge instructions and disposition.
[2016-11-14 00:26] VITALS: RESP 16
[2016-11-14 05:01] VITALS: BP 123/77; PULSE 61; TEMP 98; O2SAT 99
== END 2016-11-14 05:57 | disposition home or self-care (01) ==
LOC: C.ER 19:36 → C.9OBSV 21:10
PROVIDERS: ADMIT Emergency Medicine; ATTEND Emergency Medicine
DX: F10.129 Alcohol abuse with intoxication, unspecified (principal); F31.9 Bipolar disorder, unspecified; I10 Essential (primary) hypertension; Z59.0 Homelessness; Y90.9 Presence of alcohol in blood, level not specified
CPT/HCPCS: 82948; G0378

== ENCOUNTER 2016-11-17 19:49 | Observation (INO) | payer MEDICARE ==
[2016-11-17 19:50] VITALS: BMI 23.3
--- NOTE | 2016-11-17 20:03 | C.PDOC ---
History Of Present Illness Patient presents to the ER with acute ETOH intoxication. Denies physical complaints at this time. Time Seen by Provider: 11/17/16 20:03 Chief Complaint (Nursing): Substance Abuse History Per: Patient History/Exam Limitations: no limitations Onset/Duration Of Symptoms: Hrs Current Symptoms Are (Timing): Still Present Suicide/Self Injury Attempted (Context): None Modifying Factor(s): Alcohol Severity: None Pain Scale Rating Of: 0 Associated Symptoms: denies: Depression, Suicidal Thoughts, Suicidal Plan Involuntary Hold By: None Recent travel outside of the [place]: No Past Medical History Reviewed: Historical Data, Nursing Documentation, Vital Signs Vital Signs: Last Vital Signs Temp 98 F 11/17/16 19:56 Pulse 82 11/17/16 19:56 Resp 16 11/17/16 19:56 BP 127/82 11/17/16 19:56 Pulse Ox 99 11/17/16 20:14 - Medical History PMH: Anxiety, Asthma, Back Problems, Bipolar Disorder, Depression, Gastritis, HTN, Schizophrenia, Chronic Pain (Back Pain) Surgical History: Hernia Repair, Tonsillectomy - [facility] Procedures DETOXIFICATION SERVICES FOR SUBSTANCE ABUSE TREATMENT (12/26/15) Family History: States: No Known Family Hx - Social History Hx Tobacco Use: No Hx Alcohol Use: Yes Hx Substance Use: No - Immunization History Hx Tetanus Toxoid Vaccination: No Hx Influenza Vaccination: No Hx Pneumococcal Vaccination: No Review Of Systems Constitutional: Negative for: Fever, Chills Gastrointestinal: Negative for: Nausea, Vomiting, Diarrhea Physical Exam - Physical Exam Appears: Non-toxic, Other (ETOH on breath) Skin: Warm, Dry Oral Mucosa: Moist Chest: Symmetrical, No Tenderness Cardiovascular: Rhythm Regular, No Murmur Respiratory: No Rales, No Rhonchi, No Wheezing Gastrointestinal/Abdominal: Soft, No Tenderness Neurological/Psych: Oriented x3 ED Course And Treatment O2 Sat by Pulse Oximetry: 99 Pulse Ox Interpretation: Normal ED OBSERVATION Discharge: Yes Date of observation admission: 11/17/16 Time of observation admission: 20:04 - Observation admission statement Patient is being placed in observation because:: acute alcohol intoxication - Goals of Observation Goals of observation are:: sobriety - Progress Note Progress Note: 11/17/16 20:04 vitals stable 11/17/16 23:55 no complaints Disposition Counseled Patient/Family Regarding: Studies Performed, Diagnosis, Need For Followup - Disposition Disposition: HOME/ ROUTINE Disposition Time: 20:03 Condition: FAIR - Clinical Impression Clinical Impression: Alcohol abuse with intoxication - Scribe Statement The provider has reviewed the documentation as recorded by the Scribjackelyn Huang All medical record entries made by the Augustaibjackelyn were at my direction and personally dictated by me. I have reviewed the chart and agree that the record accurately reflects my personal performance of the history, physical exam, medical decision making, and the department course for this patient. I have also personally directed, reviewed, and agree with the discharge instructions and disposition.
[2016-11-18 06:11] VITALS: BP 130/76; PULSE 89; RESP 20; TEMP 97; O2SAT 98
== END 2016-11-18 05:24 | disposition home or self-care (01) ==
LOC: C.ER 19:49 → C.9OBSV 20:03
PROVIDERS: ADMIT Emergency Medicine; ATTEND Emergency Medicine
DX: F10.129 Alcohol abuse with intoxication, unspecified (principal); F20.9 Schizophrenia, unspecified; I10 Essential (primary) hypertension; J45.909 Unspecified asthma, uncomplicated; Y90.9 Presence of alcohol in blood, level not specified
CPT/HCPCS: 82948; 99284; G0378

== ENCOUNTER 2016-11-19 17:36 | Emergency (ER) | payer MEDICARE ==
[2016-11-19 17:36] VITALS: BMI 23.3
[2016-11-19 20:23] VITALS: BP 121/77; PULSE 73; RESP 16; TEMP 98.3; O2SAT 100
--- NOTE | 2016-11-19 21:16 | C.PDOC ---
History Of Present Illness 70 year old male BIBA for acute ETOH intoxication. Denies physical complaints at this time. Time Seen by Provider: 11/19/16 21:15 Chief Complaint (Nursing): Substance Abuse History Per: Patient History/Exam Limitations: no limitations Onset/Duration Of Symptoms: Hrs Current Symptoms Are (Timing): Still Present Suicide/Self Injury Attempted (Context): None Modifying Factor(s): Alcohol Associated Symptoms: denies: Depression, Suicidal Thoughts, Suicidal Plan Involuntary Hold By: None Recent travel outside of the [place]: No Past Medical History Reviewed: Historical Data, Nursing Documentation, Vital Signs Vital Signs: Last Vital Signs Temp 98.3 F 11/19/16 20:21 Pulse 73 11/19/16 20:21 Resp 16 11/19/16 20:21 BP 121/77 11/19/16 20:21 Pulse Ox 100 11/19/16 21:16 - Medical History PMH: Anxiety, Asthma, Back Problems, Bipolar Disorder, Depression, Gastritis, HTN, Schizophrenia, Chronic Pain (Back Pain) Surgical History: Hernia Repair, Tonsillectomy - [facility] Procedures DETOXIFICATION SERVICES FOR SUBSTANCE ABUSE TREATMENT (12/26/15) Family History: States: Unknown Family Hx - Social History Hx Tobacco Use: No Hx Alcohol Use: Yes Hx Substance Use: No - Immunization History Hx Tetanus Toxoid Vaccination: No Hx Influenza Vaccination: No Hx Pneumococcal Vaccination: No Review Of Systems Constitutional: Negative for: Fever, Chills Gastrointestinal: Negative for: Nausea, Vomiting, Diarrhea Physical Exam - Physical Exam Appears: Non-toxic, No Acute Distress, Other (ETOH on breath) Skin: Normal Color, Warm, Dry Head: Atraumatic, Normacephalic Oral Mucosa: Moist Chest: Symmetrical, No Tenderness Cardiovascular: Rhythm Regular, No Murmur Respiratory: Normal Breath Sounds, No Rales, No Rhonchi, No Wheezing Gastrointestinal/Abdominal: Soft, No Tenderness Neurological/Psych: Oriented x3, Normal Speech, Normal Cognition ED Course And Treatment O2 Sat by Pulse Oximetry: 100 Medical Decision Making Medical Decision Making: typical alcohol abuse, malingering Disposition Doctor Will See Patient In The: Office Counseled Patient/Family Regarding: Studies Performed, Diagnosis - Disposition Referrals: [facility] [Outside] [facility] [Outside] [facility] [Outside] Disposition: HOME/ ROUTINE Disposition Time: 21:16 Condition: GOOD Forms: [facility] (Luxembourgish) Print Language: ARABIC - Clinical Impression Clinical Impression: Alcohol abuse, Homelessness - Scribe Statement The provider has reviewed the documentation as recorded by the Scribjackelyn Huang All medical record entries made by the Augustaibe were at my direction and personally dictated by me. I have reviewed the chart and agree that the record accurately reflects my personal performance of the history, physical exam, medical decision making, and the department course for this patient. I have also personally directed, reviewed, and agree with the discharge instructions and disposition.
== END 2016-11-19 21:26 | disposition home or self-care (01) ==
LOC: C.ER 17:36
DX: F10.10 Alcohol abuse, uncomplicated (principal); Z59.0 Homelessness

== ENCOUNTER 2016-11-20 21:22 | Observation (INO) | payer MEDICARE ==
[2016-11-20 21:22] VITALS: BMI 23.3
--- NOTE | 2016-11-20 21:33 | C.PDOC ---
History Of Present Illness Patient brought to ER via EMS for public intoxication. Denies physical complaints at this time. Time Seen by Provider: 11/20/16 21:33 Chief Complaint (Nursing): Substance Abuse History Per: Patient History/Exam Limitations: no limitations Onset/Duration Of Symptoms: Hrs Current Symptoms Are (Timing): Still Present Suicide/Self Injury Attempted (Context): None Modifying Factor(s): Alcohol Severity: None Pain Scale Rating Of: 0 Associated Symptoms: denies: Depression, Suicidal Thoughts, Suicidal Plan Involuntary Hold By: None Recent travel outside of the [place]: No Past Medical History Reviewed: Historical Data, Nursing Documentation, Vital Signs Vital Signs: Last Vital Signs Temp 97.8 F 11/20/16 21:25 Pulse 71 11/21/16 01:04 Resp 18 11/21/16 01:04 BP 129/85 11/21/16 01:04 Pulse Ox 96 11/21/16 03:40 - Medical History PMH: Anxiety, Asthma, Back Problems, Bipolar Disorder, Depression, Gastritis, HTN, Schizophrenia, Chronic Pain (Back Pain) Surgical History: Hernia Repair, Tonsillectomy - [facility] Procedures DETOXIFICATION SERVICES FOR SUBSTANCE ABUSE TREATMENT (12/26/15) Family History: States: Unknown Family Hx - Social History Hx Tobacco Use: No Hx Alcohol Use: Yes Hx Substance Use: No - Immunization History Hx Tetanus Toxoid Vaccination: No Hx Influenza Vaccination: No Hx Pneumococcal Vaccination: No Review Of Systems Constitutional: Negative for: Fever, Chills Gastrointestinal: Negative for: Nausea, Vomiting, Diarrhea Physical Exam - Physical Exam Appears: Non-toxic, Other (ETOH on breath) Skin: Warm, Dry Oral Mucosa: Moist Chest: Symmetrical, No Tenderness Cardiovascular: Rhythm Regular, No Murmur Respiratory: No Rales, No Rhonchi, No Wheezing Gastrointestinal/Abdominal: Soft, No Tenderness Neurological/Psych: Oriented x3 ED Course And Treatment O2 Sat by Pulse Oximetry: 96 (Room air) Pulse Ox Interpretation: Normal Reevaluation Time: 05:10 Reassessment Condition: Improved ED OBSERVATION Discharge: Yes Date of observation admission: 11/20/16 Time of observation admission: 21:39 - Observation admission statement Patient is being placed in observation because:: Acute ETOH intoxication - Goals of Observation Goals of observation are:: Sobriety - Progress Note Progress Note: 11/21/16 00:40 vitals stable 11/21/16 03:40 no complaints Disposition Counseled Patient/Family Regarding: Studies Performed, Diagnosis, Need For Followup - Disposition Disposition: HOME/ ROUTINE Disposition Time: 21:33 Condition: FAIR - Clinical Impression Clinical Impression: Alcohol abuse with intoxication - Scribe Statement The provider has reviewed the documentation as recorded by the Scribjackelyn Huang All medical record entries made by the Augustaibjackelyn were at my direction and personally dictated by me. I have reviewed the chart and agree that the record accurately reflects my personal performance of the history, physical exam, medical decision making, and the department course for this patient. I have also personally directed, reviewed, and agree with the discharge instructions and disposition.
[2016-11-21 06:13] VITALS: BP 132/84; PULSE 78; RESP 20; TEMP 98; O2SAT 97
== END 2016-11-21 05:11 | disposition home or self-care (01) ==
LOC: C.ER 21:22 → C.9OBSV 21:33
PROVIDERS: ADMIT Emergency Medicine; ATTEND Emergency Medicine
DX: F10.129 Alcohol abuse with intoxication, unspecified (principal); F31.9 Bipolar disorder, unspecified; I10 Essential (primary) hypertension; Y90.9 Presence of alcohol in blood, level not specified

== ENCOUNTER 2016-11-22 15:10 | Emergency (ER) | payer MEDICARE ==
[2016-11-22 15:11] VITALS: BMI 23.3
--- NOTE | 2016-11-22 15:50 | C.PDOC ---
History Of Present Illness 70 year old male was brought to the ED by EMS after being found publicly intoxicated and malingering. Time Seen by Provider: 11/22/16 15:49 Chief Complaint (Nursing): Substance Abuse History Per: EMS History/Exam Limitations: no limitations Suicide/Self Injury Attempted (Context): None Associated Symptoms: denies: Suicidal Thoughts, Suicidal Plan Involuntary Hold By: None Recent travel outside of the [place]: No Additional History Per: Patient Past Medical History Reviewed: Historical Data, Nursing Documentation, Vital Signs Vital Signs: Last Vital Signs Temp 97.8 F 11/22/16 16:27 Pulse 88 11/22/16 16:27 Resp 20 11/22/16 16:27 BP 104/67 11/22/16 16:27 Pulse Ox 100 11/22/16 16:27 - Medical History PMH: Anxiety, Asthma, Back Problems, Bipolar Disorder, Depression, Gastritis, HTN, Schizophrenia, Chronic Pain (Back Pain) Surgical History: Hernia Repair, Tonsillectomy - [facility] Procedures DETOXIFICATION SERVICES FOR SUBSTANCE ABUSE TREATMENT (12/26/15) Family History: States: Unknown Family Hx - Social History Hx Tobacco Use: No Hx Alcohol Use: Yes Hx Substance Use: No - Immunization History Hx Tetanus Toxoid Vaccination: No Hx Influenza Vaccination: No Hx Pneumococcal Vaccination: No Review Of Systems Constitutional: Negative for: Fever, Chills Cardiovascular: Negative for: Chest Pain Respiratory: Negative for: Shortness of Breath Gastrointestinal: Negative for: Nausea, Vomiting, Abdominal Pain, Diarrhea Physical Exam - Physical Exam Appears: Non-toxic, No Acute Distress Skin: Warm, Dry Head: Atraumatic Eye(s): bilateral: Normal Inspection, PERRL, EOMI Oral Mucosa: Moist Neck: Supple Chest: Symmetrical, No Deformity Cardiovascular: Rhythm Regular Respiratory: Normal Breath Sounds, No Wheezing Gastrointestinal/Abdominal: Soft, No Tenderness, No Distention, No Guarding, No Rebound Neurological/Psych: Oriented x3 Gait: Other (Stable wide-stance gait) ED Course And Treatment O2 Sat by Pulse Oximetry: 96 Medical Decision Making Medical Decision Making: typical daily etoh abuse/malingering stable gait Wants d/c to street. Disposition Doctor Will See Patient In The: Office Counseled Patient/Family Regarding: Studies Performed, Diagnosis - Disposition Referrals: [facility] [Outside] [facility] [Outside] [facility] [Outside] Disposition: HOME/ ROUTINE Disposition Time: 15:50 Condition: GOOD Instructions: Abuse of Alcohol (ED) Forms: [employer] (Mauritian) Print Language: EAST TIMORESE - Clinical Impression Clinical Impression: Homelessness, Alcohol abuse - Scribe Statement The provider has reviewed the documentation as recorded by the Scribe Chloe Connelly All medical record entries made by the Augustaibe were at my direction and personally dictated by me. I have reviewed the chart and agree that the record accurately reflects my personal performance of the history, physical exam, medical decision making, and the department course for this patient. I have also personally directed, reviewed, and agree with the discharge instructions and disposition.
[2016-11-22 16:31] VITALS: BP 104/67; PULSE 88; RESP 20; TEMP 97.8
[2016-11-22 17:06] VITALS: O2SAT 96
== END 2016-11-22 16:28 | disposition home or self-care (01) ==
LOC: C.ER 15:10
DX: F10.10 Alcohol abuse, uncomplicated (principal); Z59.0 Homelessness

== ENCOUNTER 2016-11-23 12:02 | Emergency (ER) | payer MEDICARE ==
[2016-11-23 12:02] VITALS: BMI 23.3
[2016-11-23 12:11] VITALS: TEMP 98.2
--- NOTE | 2016-11-23 16:19 | C.PDOC ---
History Of Present Illness Jhon Mari, a 71 year old male is brought into the ED for alcohol intoxication. Time Seen by Provider: 11/23/16 13:06 Chief Complaint (Nursing): Substance Abuse History Per: Patient History/Exam Limitations: no limitations Onset/Duration Of Symptoms: Hrs Current Symptoms Are (Timing): Still Present Modifying Factor(s): Alcohol Past Medical History Reviewed: Historical Data, Nursing Documentation, Vital Signs Vital Signs: Last Vital Signs Temp 98.2 F 11/23/16 12:10 Pulse 76 11/23/16 12:10 Resp 18 11/23/16 12:10 BP 97/63 L 11/23/16 12:10 Pulse Ox 97 11/23/16 18:46 - Medical History PMH: Anxiety, Asthma, Back Problems, Bipolar Disorder, Depression, Gastritis, HTN, Schizophrenia, Chronic Pain (Back Pain) Surgical History: Hernia Repair, Tonsillectomy - [facility] Procedures DETOXIFICATION SERVICES FOR SUBSTANCE ABUSE TREATMENT (12/26/15) Family History: States: Unknown Family Hx - Social History Hx Tobacco Use: No Hx Alcohol Use: Yes Hx Substance Use: No - Immunization History Hx Tetanus Toxoid Vaccination: No Hx Influenza Vaccination: No Hx Pneumococcal Vaccination: No Review Of Systems Except As Marked, All Systems Reviewed And Found Negative. Psych: Positive for: Other (Alcohol intoxication) Physical Exam - Physical Exam Appears: Well, Non-toxic, No Acute Distress Skin: Normal Color, Warm, Dry Head: Atraumatic, Normacephalic, No Tenderness Eye(s): bilateral: Normal Inspection, PERRL, EOMI Nose: Normal Tongue: Normal Appearing Lips: Normal Appearing Teeth: Normal Dentition Throat: Normal Neck: Normal, Normal ROM Cardiovascular: Rhythm Regular Respiratory: Normal Breath Sounds, No Wheezing Gastrointestinal/Abdominal: Normal Exam, Bowel Sounds, Soft, No Tenderness Back: Normal Inspection Extremity: Normal ROM, No Tenderness, No Pedal Edema, No Deformity, No Swelling Neurological/Psych: Oriented x3, Normal Speech, Normal Cognition Gait: Steady ED Course And Treatment O2 Sat by Pulse Oximetry: 97 (RA) Pulse Ox Interpretation: Normal Medical Decision Making Medical Decision Makin Initial Impression: 71 year old male presenting with ETOH intoxication Initial Plan: * Disposition - Disposition Disposition: HOME/ ROUTINE Disposition Time: 19:11 Condition: IMPROVED Instructions: Alcohol Intoxication (ED) Forms: [facility] (Montenegrin) - Clinical Impression Clinical Impression: Alcohol intoxication - Scribe Statement The provider has reviewed the documentation as recorded by the Scribe Shelly Burrows All medical record entries made by the Augustaibe were at my direction and personally dictated by me. I have reviewed the chart and agree that the record accurately reflects my personal performance of the history, physical exam, medical decision making, and the department course for this patient. I have also personally directed, reviewed, and agree with the discharge instructions and disposition.
[2016-11-23 19:12] VITALS: BP 107/68; PULSE 66; RESP 15; O2SAT 97
== END 2016-11-23 19:13 | disposition home or self-care (01) ==
LOC: C.ER 12:02
DX: F10.129 Alcohol abuse with intoxication, unspecified (principal)

== ENCOUNTER 2016-11-26 19:55 | Observation (INO) | payer MEDICARE | END 2016-11-27 05:08 | disposition home or self-care (01) | LOC: C.ER 19:55 → C.9OBSV 20:37 | PROVIDERS: ADMIT Emergency Medicine | CPT/HCPCS: G0378 ×2 ==

== ENCOUNTER 2016-11-27 17:36 | Observation (INO) | payer MEDICARE | END 2016-11-28 05:20 | disposition home or self-care (01) | LOC: C.ER 17:36 → C.9OBSV 18:01 | PROVIDERS: ADMIT Emergency Medicine ==

== ENCOUNTER 2016-11-29 11:08 | Observation (INO) | payer MEDICARE ==
[2016-11-29 11:08] VITALS: BMI 23.3
[2016-11-29 11:19] VITALS: TEMP 98.2; O2SAT 97
--- NOTE | 2016-11-29 11:51 | C.PDOC ---
History Of Present Illness 71 y/o male brought to ED by BLS for acute ETOH intoxication. Patient is well known in ER for prior presentations. No physical complaints at this time. Time Seen by Provider: 11/29/16 11:40 Chief Complaint (Nursing): Substance Abuse History Per: Patient, EMS History/Exam Limitations: intoxication Onset/Duration Of Symptoms: Hrs Current Symptoms Are (Timing): Still Present Suicide/Self Injury Attempted (Context): None Modifying Factor(s): Alcohol Past Medical History Reviewed: Historical Data, Nursing Documentation, Vital Signs Vital Signs: Last Vital Signs Temp 98.2 F 11/29/16 11:15 Pulse 77 11/29/16 14:12 Resp 17 11/29/16 14:12 BP 105/65 11/29/16 14:12 Pulse Ox 97 11/29/16 14:12 - Medical History PMH: Anxiety, Asthma, Back Problems, Bipolar Disorder, Depression, Gastritis, HTN, Schizophrenia, Chronic Pain (Back Pain) Surgical History: Hernia Repair, Tonsillectomy - [facility] Procedures DETOXIFICATION SERVICES FOR SUBSTANCE ABUSE TREATMENT (12/26/15) Family History: States: Unknown Family Hx - Social History Hx Tobacco Use: No Hx Alcohol Use: Yes Hx Substance Use: No - Immunization History Hx Tetanus Toxoid Vaccination: No Hx Influenza Vaccination: No Hx Pneumococcal Vaccination: No Review Of Systems Except As Marked, All Systems Reviewed And Found Negative. Constitutional: Negative for: Fever, Chills Cardiovascular: Negative for: Chest Pain Respiratory: Negative for: Shortness of Breath Gastrointestinal: Negative for: Nausea, Vomiting, Diarrhea Skin: Negative for: Rash Psych: Negative for: Anxiety Physical Exam - Physical Exam Appears: Non-toxic, No Acute Distress, Other (ETOH on breath) Skin: Normal Color, Warm, No Rash Head: Atraumatic, Normacephalic Eye(s): bilateral: Normal Inspection Oral Mucosa: Moist Cardiovascular: Rhythm Regular Respiratory: Normal Breath Sounds, No Rales, No Rhonchi, No Wheezing Gastrointestinal/Abdominal: Soft, No Tenderness, No Guarding, No Rebound Extremity: Normal ROM, Capillary Refill (<2 seconds) Neurological/Psych: Oriented x3 ED Course And Treatment O2 Sat by Pulse Oximetry: 97 (RA) Pulse Ox Interpretation: Normal ED OBSERVATION Date of observation admission: 11/29/16 Time of observation admission: 11:54 - Observation admission statement Patient is being placed in observation because:: ETOH intoxication - Goals of Observation Goals of observation are:: Sobriety - Progress Note Progress Note: 11/29/16 11:54 Vital signs stable 11/29/16 14:28 Alert and awake, wants to be d/c, ambulating with a steady gait. Disposition - Disposition Disposition: HOME/ ROUTINE Disposition Time: 14:27 Condition: IMPROVED - Clinical Impression Clinical Impression: Alcohol intoxication - Scribe Statement The provider has reviewed the documentation as recorded by the Augustaibjackelyn Jo All medical record entries made by the Omar were at my direction and personally dictated by me. I have reviewed the chart and agree that the record accurately reflects my personal performance of the history, physical exam, medical decision making, and the department course for this patient. I have also personally directed, reviewed, and agree with the discharge instructions and disposition.
--- NOTE | 2016-11-29 11:52 | C.PDOC ---
Time Seen by Provider: 11/29/16 11:40 Chief Complaint (Nursing): Substance Abuse Past Medical History Vital Signs: Last Vital Signs Temp 98.2 F 11/29/16 11:15 Pulse 75 11/29/16 11:15 Resp 16 11/29/16 11:15 BP 102/65 11/29/16 11:15 Pulse Ox 97 11/29/16 11:15 - Medical History PMH: Anxiety, Asthma, Back Problems, Bipolar Disorder, Depression, Gastritis, HTN, Schizophrenia, Chronic Pain (Back Pain) Surgical History: Hernia Repair, Tonsillectomy - [facility] Procedures DETOXIFICATION SERVICES FOR SUBSTANCE ABUSE TREATMENT (12/26/15) Family History: States: Unknown Family Hx - Social History Hx Tobacco Use: No Hx Alcohol Use: Yes Hx Substance Use: No - Immunization History Hx Tetanus Toxoid Vaccination: No Hx Influenza Vaccination: No Hx Pneumococcal Vaccination: No ED Course And Treatment O2 Sat by Pulse Oximetry: 97 Disposition - Disposition Forms: [employer] (Tajik)
[2016-11-29 14:12] VITALS: BP 105/65; PULSE 77; RESP 17
== END 2016-11-29 14:29 | disposition home or self-care (01) ==
LOC: C.ER 11:08 → C.9OBSV 11:53
PROVIDERS: ADMIT Emergency Medicine; ATTEND Emergency Medicine
DX: F10.129 Alcohol abuse with intoxication, unspecified (principal); J45.909 Unspecified asthma, uncomplicated; F31.9 Bipolar disorder, unspecified; I10 Essential (primary) hypertension; G89.29 Other chronic pain; M54.9 Dorsalgia, unspecified

== ENCOUNTER 2016-11-29 17:02 | Observation (INO) | payer MEDICARE ==
[2016-11-29 17:16] VITALS: BMI 28.7
--- NOTE | 2016-11-29 17:24 | C.PDOC ---
History Of Present Illness 71 y/o male brought to ED by EMS for acute ETOH intoxication. Patient si well known at ED for prior visits. No physical complaints at this time. Chief Complaint (Nursing): Substance Abuse History Per: Patient History/Exam Limitations: no limitations Onset/Duration Of Symptoms: Hrs Current Symptoms Are (Timing): Still Present Suicide/Self Injury Attempted (Context): None Modifying Factor(s): Alcohol Past Medical History Reviewed: Historical Data, Nursing Documentation, Vital Signs Vital Signs: Last Vital Signs Temp 98.5 F 11/29/16 22:02 Pulse 80 11/29/16 22:02 Resp 16 11/29/16 22:02 BP 103/67 11/29/16 22:02 Pulse Ox 98 11/29/16 22:02 - Medical History PMH: Anxiety, Asthma, Back Problems, Bipolar Disorder, Depression, Gastritis, HTN, Schizophrenia, Chronic Pain (Back Pain) Surgical History: Hernia Repair, Tonsillectomy - [facility] Procedures DETOXIFICATION SERVICES FOR SUBSTANCE ABUSE TREATMENT (12/26/15) Family History: States: Unknown Family Hx - Social History Hx Tobacco Use: No Hx Alcohol Use: Yes Hx Substance Use: No - Immunization History Hx Tetanus Toxoid Vaccination: No Hx Influenza Vaccination: No Hx Pneumococcal Vaccination: No Review Of Systems Except As Marked, All Systems Reviewed And Found Negative. Constitutional: Negative for: Fever, Chills Cardiovascular: Negative for: Chest Pain Respiratory: Negative for: Shortness of Breath Gastrointestinal: Negative for: Nausea, Vomiting, Abdominal Pain Skin: Negative for: Rash Psych: Negative for: Anxiety Physical Exam - Physical Exam Appears: Non-toxic, No Acute Distress, Other (ETOH on breath) Skin: Normal Color, Warm, No Rash Head: Atraumatic, Normacephalic Eye(s): bilateral: Normal Inspection Oral Mucosa: Moist Neck: Supple Cardiovascular: Rhythm Regular Respiratory: Normal Breath Sounds, No Rales, No Rhonchi, No Wheezing Gastrointestinal/Abdominal: Soft, No Tenderness, No Guarding, No Rebound Extremity: Normal ROM, Capillary Refill (<2 seconds) Neurological/Psych: Oriented x3, Normal Speech ED Course And Treatment O2 Sat by Pulse Oximetry: 100 (RA) Pulse Ox Interpretation: Normal ED OBSERVATION Discharge: Yes Date of observation admission: 11/29/16 Time of observation admission: 17:24 - Observation admission statement Patient is being placed in observation because:: ETOH intoxication - Goals of Observation Goals of observation are:: Sobriety - Progress Note Progress Note: 11/29/16 17:24 Vital signs stable Disposition - Disposition Disposition: HOME/ ROUTINE Disposition Time: 23:00 Condition: IMPROVED - Clinical Impression Clinical Impression: Intoxication - Scribe Statement The provider has reviewed the documentation as recorded by the Augustaibjackelyn Jo All medical record entries made by the Augustaibjackelyn were at my direction and personally dictated by me. I have reviewed the chart and agree that the record accurately reflects my personal performance of the history, physical exam, medical decision making, and the department course for this patient. I have also personally directed, reviewed, and agree with the discharge instructions and disposition.
[2016-11-29 22:03] VITALS: BP 103/67; PULSE 80; RESP 16; TEMP 98.5
[2016-11-30 00:46] VITALS: O2SAT 100
== END 2016-11-30 | disposition home or self-care (01) ==
LOC: C.ER 17:02 → C.9OBSV 17:23
PROVIDERS: ADMIT Emergency Medicine; ATTEND Emergency Medicine
DX: F10.129 Alcohol abuse with intoxication, unspecified (principal); I10 Essential (primary) hypertension; J45.909 Unspecified asthma, uncomplicated; Y90.9 Presence of alcohol in blood, level not specified
CPT/HCPCS: 82948; 99284; G0378

== ENCOUNTER 2016-12-01 20:19 | Observation (INO) | payer MEDICARE ==
[2016-12-01 20:20] VITALS: BMI 28.7
--- NOTE | 2016-12-01 20:22 | C.PDOC ---
History Of Present Illness The patient presents to the ED with acute alcohol intoxication for an unknown duration. Patient is familiar to the ED and has had many prior visits concerning alcohol intoxication. Patient admits to drinking earlier today. He denies any physical complaints at this time. Time Seen by Provider: 12/01/16 20:21 History Per: Patient History/Exam Limitations: intoxication Onset/Duration Of Symptoms: Unknown Current Symptoms Are (Timing): Still Present Suicide/Self Injury Attempted (Context): None Modifying Factor(s): Alcohol Severity: Mild Pain Scale Rating Of: 3 Associated Symptoms: denies: Suicidal Thoughts, Suicidal Plan Involuntary Hold By: None Recent travel outside of the [place]: No Additional History Per: Patient Past Medical History Reviewed: Historical Data, Nursing Documentation, Vital Signs Vital Signs: Last Vital Signs Temp 98 F 12/01/16 20:25 Pulse 97 H 12/01/16 20:25 Resp 18 12/01/16 20:25 BP 126/84 12/01/16 20:25 Pulse Ox 97 12/02/16 02:37 - Medical History PMH: Anxiety, Asthma, Back Problems, Bipolar Disorder, Depression, Gastritis, HTN, Schizophrenia, Chronic Pain (Back Pain) Surgical History: Hernia Repair, Tonsillectomy - [facility] Procedures DETOXIFICATION SERVICES FOR SUBSTANCE ABUSE TREATMENT (12/26/15) Family History: States: No Known Family Hx - Social History Hx Tobacco Use: No Hx Alcohol Use: Yes Hx Substance Use: No - Immunization History Hx Tetanus Toxoid Vaccination: No Hx Influenza Vaccination: No Hx Pneumococcal Vaccination: No Review Of Systems Constitutional: Positive for: Other (ETOH intoxication ) Cardiovascular: Negative for: Chest Pain, Palpitations Respiratory: Negative for: Cough, Shortness of Breath Gastrointestinal: Negative for: Nausea, Vomiting, Abdominal Pain Skin: Negative for: Rash, Lesions, Jaundice, Bruising Neurological: Negative for: Weakness, Numbness Psych: Negative for: Suicidal ideation Physical Exam - Physical Exam Appears: No Acute Distress, Other (visibly intoxicated ) Skin: Warm, Dry Head: Normacephalic Eye(s): bilateral: Normal Inspection Oral Mucosa: Moist, Other (alcohol on breath ) Neck: Supple Chest: Symmetrical, No Deformity, No Tenderness Cardiovascular: Rhythm Regular, No Murmur Respiratory: No Rales, No Rhonchi, No Wheezing Gastrointestinal/Abdominal: Soft, No Tenderness Extremity: Capillary Refill (less than 2 seconds ) Neurological/Psych: Other (arousable to touch and verbal stimuli ) Gait: Unsteady ED Course And Treatment O2 Sat by Pulse Oximetry: 97 (on RA) Pulse Ox Interpretation: Normal Progress Note: Patient placed in ED observation for acute alcohol intoxication and is pending sobriety. Reevaluation Time: 05:02 Reassessment Condition: Improved ED OBSERVATION Date of observation admission: 12/01/16 Time of observation admission: 20:24 - Observation admission statement Patient is being placed in observation because:: acute alcohol intoxication - Goals of Observation Goals of observation are:: sobriety - Progress Note Progress Note: 12/01/16 20:25 vitals stable 12/02/16 01:12 sleeping, vitals stable 12/02/16 02:37 ambulating to the bathroom unassisted., steady 12/02/16 05:02 wants to go home. Disposition Counseled Patient/Family Regarding: Studies Performed, Diagnosis, Need For Followup - Disposition Disposition: HOME/ ROUTINE Disposition Time: 20:21 Condition: FAIR - Clinical Impression Clinical Impression: Alcoholism /alcohol abuse, Alcohol intoxication - Scribe Statement The provider has reviewed the documentation as recorded by the Scribe (Chrissy Leiva) Provider Attestation: All medical record entries made by the Scribe were at my direction and personally dictated by me. I have reviewed the chart and agree that the record accurately reflects my personal performance of the history, physical exam, medical decision making, and the department course for this patient. I have also personally directed, reviewed, and agree with the discharge instructions and disposition.
[2016-12-01 20:28] VITALS: BP 126/84; PULSE 97; RESP 18; TEMP 98; O2SAT 97
== END 2016-12-02 05:07 | disposition home or self-care (01) ==
LOC: C.ER 20:19 → C.9OBSV 20:55
PROVIDERS: ADMIT Emergency Medicine; ATTEND Emergency Medicine
DX: F10.220 Alcohol dependence with intoxication, uncomplicated (principal); Y90.9 Presence of alcohol in blood, level not specified
CPT/HCPCS: 82948; G0378

== ENCOUNTER 2016-12-08 17:26 | Observation (INO) | payer MEDICARE ==
[2016-12-08 17:40] VITALS: BMI 30.4
--- NOTE | 2016-12-08 17:49 | C.PDOC ---
History Of Present Illness 71 yr old male brought in via BLS, presents to the ER for being found laying on the sidewalk. According to EMS, a passerby called 911 regarding the patient. Patient is very well known to ED for multiple visits for alcohol abuse. ROS is limited due to intoxication. Time Seen by Provider: 12/08/16 17:28 Chief Complaint (Nursing): Substance Abuse History Per: EMS History/Exam Limitations: intoxication Past Medical History Reviewed: Historical Data, Nursing Documentation, Vital Signs Vital Signs: Last Vital Signs Temp 98 F 12/08/16 17:33 Pulse 89 12/08/16 17:33 Resp 18 12/08/16 17:33 BP 112/73 12/08/16 17:33 Pulse Ox 95 12/08/16 17:52 - Medical History PMH: Anxiety, Asthma, Back Problems, Bipolar Disorder, Depression, Gastritis, HTN, Schizophrenia, Chronic Pain (Back Pain) Surgical History: Hernia Repair, Tonsillectomy - [facility] Procedures DETOXIFICATION SERVICES FOR SUBSTANCE ABUSE TREATMENT (12/26/15) Family History: States: No Known Family Hx - Social History Hx Tobacco Use: No Hx Alcohol Use: Yes Hx Substance Use: No - Immunization History Hx Tetanus Toxoid Vaccination: No Hx Influenza Vaccination: No Hx Pneumococcal Vaccination: No Review Of Systems Review Of Systems: ROS cannot be obtained secondary to pt's inabilty to answer questions. Physical Exam - Physical Exam Appears: Non-toxic, Agitated Skin: Warm, Dry, No Rash Head: Atraumatic, Normacephalic Chest: Symmetrical Cardiovascular: Rhythm Regular, No Murmur Respiratory: Normal Breath Sounds, No Rales, No Wheezing Gastrointestinal/Abdominal: Normal Exam, Soft, No Tenderness, No Guarding, No Rebound Extremity: Normal ROM, No Swelling Neurological/Psych: Normal Speech, Normal Motor, Normal Sensation ED Course And Treatment O2 Sat by Pulse Oximetry: 95 (RA ) Pulse Ox Interpretation: Normal Medical Decision Making Medical Decision Making: PLAN: * CT - Head to r/o intracranial hemorrhage * monitoring for sobriety Finger Stick: 109 Disposition - Disposition Disposition Time: 17:57 Condition: FAIR Forms: [facility] [employer] (Khmer) - Clinical Impression Clinical Impression: Intoxication - Scribe Statement The provider has reviewed the documentation as recorded by the Augustaibjackelyn Gonzalez Provider Attestation: All medical record entries made by the Scribe were at my direction and personally dictated by me. I have reviewed the chart and agree that the record accurately reflects my personal performance of the history, physical exam, medical decision making, and the department course for this patient. I have also personally directed, reviewed, and agree with the discharge instructions and disposition.
--- NOTE | 2016-12-08 19:25 | CT ---
EXAM: CT Head Without Intravenous Contrast EXAM DATE/TIME: 12/08/2016 5:51 PM CLINICAL HISTORY: 71 years old, male; Injury or trauma; Fall; Initial encounter; Abrasion; Forehead; Additional info: Alcohol abuse, ? head trauma TECHNIQUE: Axial computed tomography images of the head/brain without intravenous contrast. All CT scans at this facility use one or more dose reduction techniques, viz.: automated exposure control; ma/kV adjustment per patient size (including targeted exams where dose is matched to indication; i.e. head); or iterative reconstruction technique. COMPARISON: No relevant prior studies available. FINDINGS: BRAIN: Diffuse, marked, age-related cortical atrophy and ventriculomegaly. No significant acute abnormality identified. No acute hemorrhage seen within the brain. No acute extra-axial fluid collections visualized. No evidence of significant mass effect within the brain. VENTRICLES: See above. BONES/JOINTS: No acute fractures or other acute bony abnormality noted. SOFT TISSUES: No acute abnormality of the visualized soft tissues is seen. SINUSES: Visualized paranasal sinuses appear clear. MASTOID AIR CELLS: Mastoid air cells appear clear. IMPRESSION: - No evidence of acute intracranial injury or fractures. - See above for remaining findings.
[2016-12-09 01:46] VITALS: BP 127/82; PULSE 73; RESP 16; TEMP 97.9; O2SAT 98
== END 2016-12-09 06:30 | disposition home or self-care (01) ==
LOC: C.ER 17:26 → C.9OBSV 20:25
PROVIDERS: ADMIT Emergency Medicine; ATTEND Emergency Medicine
DX: F10.120 Alcohol abuse with intoxication, uncomplicated (principal); F20.9 Schizophrenia, unspecified; I10 Essential (primary) hypertension; J45.909 Unspecified asthma, uncomplicated; Y90.9 Presence of alcohol in blood, level not specified
CPT/HCPCS: 70450; 82948; 99285; G0378

== ENCOUNTER 2016-12-09 19:11 | Emergency (ER) | payer MEDICARE ==
[2016-12-09 19:11] VITALS: BMI 28.7
[2016-12-09 20:45] VITALS: BP 110/85; PULSE 98; RESP 18; TEMP 98; O2SAT 98
== END 2016-12-10 01:01 | disposition left against medical advice (07) ==
LOC: C.ER 19:11
DX: F10.10 Alcohol abuse, uncomplicated (principal); Y90.9 Presence of alcohol in blood, level not specified; Z02.9 Encounter for administrative examinations, unspecified

== ENCOUNTER 2016-12-10 15:49 | Emergency (ER) | payer MEDICARE ==
[2016-12-10 15:49] VITALS: BMI 28.7
[2016-12-10 16:05] VITALS: BP 100/69; PULSE 74; TEMP 97.4; O2SAT 97
--- NOTE | 2016-12-10 16:55 | C.PDOC ---
History Of Present Illness 71 y/o male comes in due to acute alcohol intoxication. Patient has numerous prior visits for the same complaint. Denies suicidal, homicidal ideation, or any somatic complaints. Time Seen by Provider: 12/10/16 16:47 Chief Complaint (Nursing): Substance Abuse History Per: Patient History/Exam Limitations: no limitations Onset/Duration Of Symptoms: Hrs Current Symptoms Are (Timing): Still Present Suicide/Self Injury Attempted (Context): None Modifying Factor(s): Alcohol Severity: Mild Associated Symptoms: denies: Suicidal Thoughts, Suicidal Plan Involuntary Hold By: None Recent travel outside of the [place]: No Additional History Per: Patient Past Medical History Reviewed: Historical Data, Nursing Documentation, Vital Signs Vital Signs: Last Vital Signs Temp 97.4 F L 12/10/16 16:04 Pulse 74 12/10/16 16:04 Resp 16 12/10/16 18:02 BP 100/69 12/10/16 16:04 Pulse Ox 97 12/10/16 16:55 - Medical History PMH: Anxiety, Asthma, Back Problems, Bipolar Disorder, Depression, Gastritis, HTN, Schizophrenia, Chronic Pain (Back Pain) Surgical History: Hernia Repair, Tonsillectomy - [facility] Procedures DETOXIFICATION SERVICES FOR SUBSTANCE ABUSE TREATMENT (12/26/15) Family History: States: Unknown Family Hx - Social History Hx Tobacco Use: No Hx Alcohol Use: Yes Hx Substance Use: No - Immunization History Hx Tetanus Toxoid Vaccination: No Hx Influenza Vaccination: No Hx Pneumococcal Vaccination: No Review Of Systems Except As Marked, All Systems Reviewed And Found Negative. Constitutional: Positive for: Other (Alcohol intoxicated). Negative for: Fever , Chills Eyes: Negative for: Vision Change ENT: Negative for: Throat Pain Cardiovascular: Negative for: Chest Pain Respiratory: Negative for: Cough, Shortness of Breath Gastrointestinal: Negative for: Nausea, Vomiting, Abdominal Pain, Diarrhea Skin: Negative for: Rash Psych: Negative for: Suicidal ideation, Other (Homicidal ideation) Physical Exam - Physical Exam Appears: Non-toxic, No Acute Distress, Other (Alcohol intoxicated, (+) AOB) Skin: Warm, Dry Head: Atraumatic, Normacephalic Oral Mucosa: Moist Neck: Supple Cardiovascular: Rhythm Regular Respiratory: Normal Breath Sounds, No Rales, No Rhonchi, No Wheezing Gastrointestinal/Abdominal: Soft, No Tenderness Back: Normal Inspection, No CVA Tenderness Neurological/Psych: Oriented x3, Normal Speech, Normal Cognition, Other (NO focal deficit) Gait: Steady ED Course And Treatment O2 Sat by Pulse Oximetry: 97 (RA) Pulse Ox Interpretation: Normal Medical Decision Making Medical Decision Making: Impression: 71 y/o male brought in due to alcohol intoxication. Plans: * Reassess * ED Obs typical alcohol abuse/malingering not sig intoxicated now Baseline gait ED OBSERVATION Date of observation admission: 12/10/16 Time of observation admission: 20:09 - Observation admission statement Patient is being placed in observation because:: Alcohol intoxication - Goals of Observation Goals of observation are:: Sobriety Disposition Doctor Will See Patient In The: Office Counseled Patient/Family Regarding: Studies Performed, Diagnosis - Disposition Referrals: Alcoholics Anonymous [Outside] [facility]Outside[facility] Disposition: HOME/ ROUTINE Disposition Time: 16:55 Condition: GOOD Additional Instructions: seek regular nightly usp placement. Seek alcohol detox program Instructions: Abuse of Alcohol (ED) Forms: [facility] [employer] (Armenian) Print Language: ALBANIAN - Clinical Impression Clinical Impression: Malingering, Alcohol abuse - Scribe Statement The provider has reviewed the documentation as recorded by the Scribe Latosha hagen All medical record entries made by the Scribe were at my direction and personally dictated by me. I have reviewed the chart and agree that the record accurately reflects my personal performance of the history, physical exam, medical decision making, and the department course for this patient. I have also personally directed, reviewed, and agree with the discharge instructions and disposition.
[2016-12-10 18:03] VITALS: RESP 16
== END 2016-12-10 18:02 | disposition home or self-care (01) ==
LOC: C.ER 15:49
DX: F10.10 Alcohol abuse, uncomplicated (principal); Y90.9 Presence of alcohol in blood, level not specified; Z76.5 Malingerer [conscious simulation]

== ENCOUNTER 2016-12-17 17:58 | Observation (INO) | payer MEDICARE, OTHER ==
[2016-12-17 17:59] VITALS: BMI 28.7
--- NOTE | 2016-12-17 19:31 | C.PDOC ---
History Of Present Illness <Ramón Edmonds - Last Filed: 12/18/16 00:53> <Darren Mckeon Nicole - Last Filed: 12/18/16 06:03> Pt was BIBEMS due to public alcohol intoxication. (Ramón Edmonds) History Per: Patient, EMS History/Exam Limitations: intoxication Onset/Duration Of Symptoms: Unknown (today) Current Symptoms Are (Timing): Still Present Suicide/Self Injury Attempted (Context): None Modifying Factor(s): Alcohol Severity: Moderate Associated Symptoms: denies: Suicidal Thoughts, Suicidal Plan Additional History Per: Prior Records <Ramón Edmonds - Last Filed: 12/18/16 00:53> <Darren Mckeon Nicole - Last Filed: 12/18/16 06:03> Time Seen by Provider: 12/17/16 18:24 Chief Complaint (Nursing): Substance Abuse Past Medical History Reviewed: Historical Data, Nursing Documentation, Vital Signs - Medical History PMH: Anxiety, Asthma, Back Problems, Bipolar Disorder, Depression, Gastritis, HTN, Schizophrenia, Chronic Pain (Back Pain) Other PMH: Alcohol abuse Surgical History: Hernia Repair, Tonsillectomy Family History: States: Unknown Family Hx - Social History Hx Tobacco Use: No Hx Alcohol Use: Yes Hx Substance Use: No - Immunization History Hx Tetanus Toxoid Vaccination: No Hx Influenza Vaccination: No Hx Pneumococcal Vaccination: No <Ramón Edmonds - Last Filed: 12/18/16 00:53> Review Of Systems Review Of Systems: ROS cannot be obtained secondary to pt's inabilty to answer questions. <Janay Edmondsquentin Huynh - Last Filed: 12/18/16 00:53> Physical Exam - Physical Exam Appears: Non-toxic, No Acute Distress Skin: Normal Color, Warm, Dry, No Rash Head: Atraumatic Eye(s): bilateral: PERRL Neck: Normal ROM, No Midline Cervical Tenderness, No Step Off Deformity, Supple Cardiovascular: Rhythm Regular Respiratory: Normal Breath Sounds, No Accessory Muscle Use Gastrointestinal/Abdominal: Soft, No Tenderness Extremity: Normal ROM, No Deformity Neurological/Psych: Eyes Open With Command, Slow To Respond With Command, Other (Moving all extremities) Gait: Unable To Assess <MaiteJanay jonasquentin Huynh - Last Filed: 12/18/16 00:53> ED Course And Treatment O2 Sat by Pulse Oximetry: 97 Pulse Ox Interpretation: Normal <Ramón Edmonds - Last Filed: 12/18/16 00:53> ED OBSERVATION Date of observation admission: 12/17/16 Time of observation admission: 18:30 <Ramón Edmonds - Last Filed: 12/18/16 00:53> Discharge: Yes <Darren Mckeon - Last Filed: 12/18/16 06:03> - Observation admission statement Patient is being placed in observation because:: Alcohol intoxication (Ramón Edmonds) - Goals of Observation Goals of observation are:: Sobriety. (Ramón Edmonds) Disposition - Disposition Disposition Time: 01:00 <Ramón Edmonds - Last Filed: 12/18/16 00:53> <Darren Mckeon - Last Filed: 12/18/16 06:03> - Disposition Disposition: HOME/ ROUTINE Condition: STABLE - Clinical Impression Clinical Impression: Homelessness, Alcohol abuse Physician Patient Turnover Patient Signed Over To: Darren Mckeon Handoff Comments: to reassess pt once sober. <Ramón Edmonds - Last Filed: 12/18/16 00:53>
[2016-12-18 00:43] VITALS: RESP 20
[2016-12-18 05:34] VITALS: BP 150/87; PULSE 60; TEMP 98.4; O2SAT 98
== END 2016-12-18 06:03 | disposition home or self-care (01) ==
LOC: C.ER 17:58 → C.9OBSV 19:32
PROVIDERS: ADMIT Emergency Medicine; ATTEND Emergency Medicine
DX: F10.129 Alcohol abuse with intoxication, unspecified (principal); J45.909 Unspecified asthma, uncomplicated; I10 Essential (primary) hypertension; Z59.0 Homelessness; Z86.59 Personal history of other mental and behavioral disorders
CPT/HCPCS: 82948; G0378

== ENCOUNTER 2016-12-23 15:50 | Emergency (ER) | payer MEDICARE ==
[2016-12-23 15:50] VITALS: BMI 28.7
[2016-12-23 16:02] VITALS: TEMP 98
[2016-12-23 16:03] VITALS: BP 101/65; PULSE 76; RESP 18; O2SAT 97
--- NOTE | 2016-12-23 16:18 | C.PDOC ---
History Of Present Illness A 71 year old male, whose past medical history includes anxiety, asthma, back problems, bipolar disorder, depression, gastritis, hypertension, and schizophrenia presents to the emergency department brought in by EMS for public intoxication and substance abuse. The patient has many similar prior visits, the patient admits to drinking today. The patient is awake, alert, and has steady gait. The patient is completely asymptomatic and denies any current complaints at this time. Time Seen by Provider: 12/23/16 16:17 Chief Complaint (Nursing): Substance Abuse History Per: Patient History/Exam Limitations: no limitations, intoxication Onset/Duration Of Symptoms: Mins (x prior to arrival ) Past Medical History Reviewed: Historical Data, Nursing Documentation, Vital Signs Vital Signs: Last Vital Signs Temp 98.0 F 12/23/16 15:57 Pulse 76 12/23/16 15:57 Resp 18 12/23/16 16:30 BP 101/65 12/23/16 15:57 Pulse Ox 97 12/23/16 16:18 - Medical History PMH: Anxiety, Asthma, Back Problems, Bipolar Disorder, Depression, Gastritis, HTN, Schizophrenia, Chronic Pain (Back Pain) Surgical History: Hernia Repair, Tonsillectomy - [facility] Procedures DETOXIFICATION SERVICES FOR SUBSTANCE ABUSE TREATMENT (12/26/15) Family History: States: No Known Family Hx, Unknown Family Hx - Social History Hx Tobacco Use: No Hx Alcohol Use: Yes Hx Substance Use: No - Immunization History Hx Tetanus Toxoid Vaccination: No Hx Influenza Vaccination: No Hx Pneumococcal Vaccination: No Review Of Systems Except As Marked, All Systems Reviewed And Found Negative. Constitutional: Negative for: Fever Cardiovascular: Negative for: Chest Pain Respiratory: Negative for: Shortness of Breath Gastrointestinal: Negative for: Abdominal Pain Physical Exam - Physical Exam Appears: Well, Non-toxic, No Acute Distress Skin: Normal Color, Warm, Dry Eye(s): bilateral: Normal Inspection, PERRL, EOMI Nose: Normal Throat: Normal Neck: Normal Cardiovascular: Rhythm Regular Respiratory: Normal Breath Sounds Gastrointestinal/Abdominal: Normal Exam Back: Normal Inspection Extremity: Normal ROM Neurological/Psych: Other (Awake & Alert ) Gait: Steady ED Course And Treatment O2 Sat by Pulse Oximetry: 97 Medical Decision Making Medical Decision Making: typical malingering, alcohol abuse not significantly intoxicated now stable/baseline gait, ok for d/c Disposition Doctor Will See Patient In The: Office Counseled Patient/Family Regarding: Studies Performed, Diagnosis - Disposition Referrals: Alcoholics Anonymous [Outside] [facility] [place] [Outside] [facility] [Outside] [place] [facility] [Outside] Disposition: HOME/ ROUTINE Disposition Time: 16:17 Condition: GOOD Instructions: Abuse of Alcohol (ED) Forms: [employer] (Tajik) Print Language: BURKINAN - Clinical Impression Clinical Impression: Malingering, Alcohol abuse - Scribe Statement The provider has reviewed the documentation as recorded by the Scribjackelyn Iverson All medical record entries made by the Augustaibe were at my direction and personally dictated by me. I have reviewed the chart and agree that the record accurately reflects my personal performance of the history, physical exam, medical decision making, and the department course for this patient. I have also personally directed, reviewed, and agree with the discharge instructions and disposition.
== END 2016-12-23 16:30 | disposition home or self-care (01) ==
LOC: C.ER 15:50
DX: Z76.5 Malingerer [conscious simulation] (principal); F10.10 Alcohol abuse, uncomplicated; Y90.9 Presence of alcohol in blood, level not specified

== ENCOUNTER 2016-12-23 20:38 | Observation (INO) | payer MEDICARE ==
[2016-12-23 20:39] VITALS: BMI 28.7
--- NOTE | 2016-12-23 21:58 | C.PDOC ---
History Of Present Illness Pt was BIBEMS due to public alcohol intoxication. Time Seen by Provider: 12/23/16 20:41 Chief Complaint (Nursing): Substance Abuse History Per: Patient, EMS History/Exam Limitations: intoxication Onset/Duration Of Symptoms: Other (today) Current Symptoms Are (Timing): Still Present Suicide/Self Injury Attempted (Context): None Modifying Factor(s): Alcohol Severity: Moderate Associated Symptoms: denies: Suicidal Thoughts, Suicidal Plan Additional History Per: Prior Records Past Medical History Reviewed: Historical Data, Nursing Documentation, Vital Signs Vital Signs: Last Vital Signs Temp 98.4 F 12/24/16 01:27 Pulse 70 12/24/16 01:27 Resp 18 12/24/16 01:27 BP 130/78 12/24/16 01:27 Pulse Ox 95 12/24/16 01:27 - Medical History PMH: Anxiety, Asthma, Back Problems, Bipolar Disorder, Depression, Gastritis, HTN, Schizophrenia, Chronic Pain (Back Pain) Other PMH: Alcohol abuse Surgical History: Hernia Repair, Tonsillectomy - [facility] Procedures DETOXIFICATION SERVICES FOR SUBSTANCE ABUSE TREATMENT (12/26/15) Family History: States: Unknown Family Hx - Social History Hx Tobacco Use: No Hx Alcohol Use: Yes Hx Substance Use: No - Immunization History Hx Tetanus Toxoid Vaccination: No Hx Influenza Vaccination: No Hx Pneumococcal Vaccination: No Review Of Systems Constitutional: Negative for: Fever Cardiovascular: Negative for: Chest Pain Respiratory: Negative for: Shortness of Breath Gastrointestinal: Negative for: Vomiting, Abdominal Pain Musculoskeletal: Negative for: Neck Pain Neurological: Negative for: Weakness, Seizures Physical Exam - Physical Exam Appears: Non-toxic, No Acute Distress Skin: Normal Color, Warm, Dry Head: Atraumatic, Normacephalic Eye(s): bilateral: PERRL, EOMI Neck: Normal ROM, No Midline Cervical Tenderness, No Step Off Deformity, Supple Chest: Symmetrical, No Deformity Cardiovascular: Rhythm Regular Respiratory: Normal Breath Sounds, No Accessory Muscle Use Gastrointestinal/Abdominal: Soft, No Tenderness Extremity: Normal ROM, No Deformity Neurological/Psych: Other (Moving all extremities) Gait: Unable To Assess ED Course And Treatment O2 Sat by Pulse Oximetry: 98 Pulse Ox Interpretation: Normal Reassessment Condition: Improved ED OBSERVATION Discharge: Yes Date of observation admission: 12/23/16 Time of observation admission: 21:00 - Observation admission statement Patient is being placed in observation because:: Alcohol intoxication. - Goals of Observation Goals of observation are:: Sobriety. - Progress Note Progress Note: 12/24/16 05:29 Pt is now clinically sober. AAOx3. Steady gait. Disposition Counseled Patient/Family Regarding: Diagnosis, Need For Followup - Disposition Disposition: HOME/ ROUTINE Disposition Time: 05:29 Condition: IMPROVED - Clinical Impression Clinical Impression: Alcohol abuse
[2016-12-24 05:40] VITALS: BP 132/89; PULSE 78; RESP 20; TEMP 98.5; O2SAT 96
== END 2016-12-24 05:29 | disposition home or self-care (01) ==
LOC: C.ER 20:38 → C.9OBSV 21:58
PROVIDERS: ADMIT Emergency Medicine; ATTEND Emergency Medicine
DX: F10.229 Alcohol dependence with intoxication, unspecified (principal); F41.9 Anxiety disorder, unspecified; J45.909 Unspecified asthma, uncomplicated; F31.9 Bipolar disorder, unspecified
CPT/HCPCS: 82948; G0378

== ENCOUNTER 2016-12-25 13:47 | Observation (INO) | payer MEDICARE ==
[2016-12-25 13:47] VITALS: BMI 28.7
[2016-12-25 14:00] VITALS: O2SAT 98
--- NOTE | 2016-12-25 14:31 | C.PDOC ---
History Of Present Illness Jhon is a 71 y/o male who was brought to the ED via EMS for alcohol intoxication. Patient appears intoxicated and drowsy in the ED. No physical complaints. No evidence of trauma. PMD: Unknown Time Seen by Provider: 12/25/16 14:16 Chief Complaint (Nursing): Substance Abuse History Per: Patient, EMS History/Exam Limitations: no limitations Onset/Duration Of Symptoms: Days (x 1) Current Symptoms Are (Timing): Still Present Modifying Factor(s): Alcohol Past Medical History Reviewed: Historical Data, Nursing Documentation, Vital Signs Vital Signs: Last Vital Signs Temp 98.4 F 12/25/16 16:49 Pulse 84 12/25/16 16:49 Resp 20 12/25/16 16:49 BP 116/68 12/25/16 16:49 Pulse Ox 98 12/25/16 16:49 - Medical History PMH: Anxiety, Asthma, Back Problems, Bipolar Disorder, Depression, Gastritis, HTN, Schizophrenia, Chronic Pain (Back Pain) Surgical History: Hernia Repair, Tonsillectomy - [facility] Procedures DETOXIFICATION SERVICES FOR SUBSTANCE ABUSE TREATMENT (12/26/15) Family History: States: Unknown Family Hx - Social History Hx Tobacco Use: No Hx Alcohol Use: Yes Hx Substance Use: No - Immunization History Hx Tetanus Toxoid Vaccination: No Hx Influenza Vaccination: No Hx Pneumococcal Vaccination: No Review Of Systems Except As Marked, All Systems Reviewed And Found Negative. Psych: Positive for: Other (Alcohol abuse) Physical Exam - Physical Exam Appears: Non-toxic, No Acute Distress, Unkempt Skin: Normal Color, Warm, Dry Head: Atraumatic, Normacephalic Eye(s): bilateral: Normal Inspection, PERRL, EOMI Oral Mucosa: Moist Neck: Normal, Normal ROM, Supple Chest: Symmetrical Cardiovascular: Rhythm Regular, No Murmur Respiratory: Normal Breath Sounds, No Accessory Muscle Use Gastrointestinal/Abdominal: Normal Exam, Soft, No Tenderness Back: Normal Inspection Extremity: Bilateral: Atraumatic, Normal Color And Temperature, Normal ROM Neurological/Psych: Other (Awake. Sleepy but arousable to verbal stimuli) ED Course And Treatment O2 Sat by Pulse Oximetry: 98 (RA) Pulse Ox Interpretation: Normal Reevaluation Time: 16:58 Reassessment Condition: Improved (Patient awake and ambulatory with steady gait. ) Medical Decision Making Medical Decision Making: Time: 14:16 Initial Plan: --Patient admitted to ED-OBS for alcohol intoxication --Pending clinical sobriety ED OBSERVATION Discharge: Yes Date of observation admission: 12/25/16 Time of observation admission: 14:16 - Observation admission statement Patient is being placed in observation because:: Alcohol intoxication - Goals of Observation Goals of observation are:: Clinical sobriety - Progress Note Progress Note: 12/25/16 Time: 14:16 --Patient resting in ED. Vital signs stable. Time: 15:45 --Patient continuing to rest. Vital signs stable. 12/25/16 16:58 Patient awake and ambulating with steady gait. Disposition - Disposition Disposition: HOME/ ROUTINE Disposition Time: 16:58 Condition: IMPROVED - Clinical Impression Clinical Impression: Alcohol intoxication - Scribe Statement The provider has reviewed the documentation as recorded by the Omar [place] All medical record entries made by the Omar were at my direction and personally dictated by me. I have reviewed the chart and agree that the record accurately reflects my personal performance of the history, physical exam, medical decision making, and the department course for this patient. I have also personally directed, reviewed, and agree with the discharge instructions and disposition.
[2016-12-25 16:50] VITALS: BP 116/68; PULSE 84; RESP 20; TEMP 98.4
== END 2016-12-25 16:59 | disposition home or self-care (01) ==
LOC: C.ER 13:47 → C.9OBSV 14:16
PROVIDERS: ADMIT Emergency Medicine; ATTEND Emergency Medicine
DX: F10.229 Alcohol dependence with intoxication, unspecified (principal); J45.909 Unspecified asthma, uncomplicated; F31.9 Bipolar disorder, unspecified; I10 Essential (primary) hypertension; F20.9 Schizophrenia, unspecified

== ENCOUNTER 2016-12-26 12:40 | Emergency (ER) | payer MEDICARE ==
[2016-12-26 12:40] VITALS: BMI 28.7
[2016-12-26 13:14] VITALS: BP 95/61; PULSE 72; RESP 18; TEMP 97.9; O2SAT 97
--- NOTE | 2016-12-26 14:07 | C.PDOC ---
History Of Present Illness Pt was BIBEMS due to alleged public intoxication. Time Seen by Provider: 12/26/16 13:17 Chief Complaint (Nursing): Substance Abuse History Per: Patient, EMS Onset/Duration Of Symptoms: Unknown (today) Current Symptoms Are (Timing): Still Present Suicide/Self Injury Attempted (Context): None Modifying Factor(s): Alcohol Severity: Moderate Associated Symptoms: denies: Suicidal Thoughts, Suicidal Plan Additional History Per: Prior Records Past Medical History Reviewed: Historical Data, Nursing Documentation, Vital Signs Vital Signs: Last Vital Signs Temp 97.9 F 12/26/16 13:14 Pulse 72 12/26/16 13:14 Resp 18 12/26/16 13:14 BP 95/61 L 12/26/16 13:14 Pulse Ox 97 12/26/16 13:14 - Medical History PMH: Anxiety, Asthma, Back Problems, Bipolar Disorder, Depression, Gastritis, HTN, Schizophrenia, Chronic Pain (Back Pain) Surgical History: Hernia Repair, Tonsillectomy - [facility] Procedures DETOXIFICATION SERVICES FOR SUBSTANCE ABUSE TREATMENT (12/26/15) Family History: States: Unknown Family Hx - Social History Hx Tobacco Use: No Hx Alcohol Use: Yes Hx Substance Use: No - Immunization History Hx Tetanus Toxoid Vaccination: No Hx Influenza Vaccination: No Hx Pneumococcal Vaccination: No Review Of Systems Constitutional: Negative for: Fever Cardiovascular: Negative for: Chest Pain Respiratory: Negative for: Shortness of Breath Gastrointestinal: Negative for: Vomiting, Abdominal Pain Musculoskeletal: Negative for: Neck Pain Neurological: Negative for: Weakness, Seizures Physical Exam - Physical Exam Appears: Non-toxic, No Acute Distress Skin: Normal Color, Warm, Dry Head: Atraumatic, Normacephalic Eye(s): bilateral: PERRL, EOMI Neck: Normal ROM, No Midline Cervical Tenderness, No Step Off Deformity, Supple Chest: Symmetrical, No Deformity Cardiovascular: Rhythm Regular Respiratory: Normal Breath Sounds, No Accessory Muscle Use Gastrointestinal/Abdominal: Soft, No Tenderness Extremity: Normal ROM, No Deformity Neurological/Psych: Oriented x3, Normal Motor ED Course And Treatment O2 Sat by Pulse Oximetry: 97 Pulse Ox Interpretation: Normal Progress Note: I was informed by the nurse that the pt had walked out during evaluation. Disposition - Disposition Disposition: ELOPEMENT - ER ONLY Disposition Time: 14:08 Condition: UNKNOWN - Clinical Impression Clinical Impression: Patient left before treatment completed
== END 2016-12-26 13:22 | disposition left against medical advice (07) ==
LOC: C.ER 12:40
DX: F10.129 Alcohol abuse with intoxication, unspecified (principal); Y90.9 Presence of alcohol in blood, level not specified

== ENCOUNTER 2017-01-03 18:59 | Observation (INO) | payer MEDICARE ==
[2017-01-03 19:00] VITALS: BMI 28.7
--- NOTE | 2017-01-03 20:05 | C.PDOC ---
History Of Present Illness Patient brought to the ED via EMS for alcohol intoxication. Patient appears intoxicated and drowsy in the ED. Denies any suicidal or homicidal ideation. Patient offers no medical complaints. Time Seen by Provider: 01/03/17 20:04 Chief Complaint (Nursing): Substance Abuse History Per: Patient History/Exam Limitations: intoxication Onset/Duration Of Symptoms: Hrs Current Symptoms Are (Timing): Still Present Suicide/Self Injury Attempted (Context): None Modifying Factor(s): Alcohol Severity: Mild Pain Scale Rating Of: 3 Associated Symptoms: denies: Suicidal Thoughts, Suicidal Plan Involuntary Hold By: None Recent travel outside of the [place]: No Past Medical History Reviewed: Historical Data, Nursing Documentation, Vital Signs Vital Signs: Last Vital Signs Temp 98.0 F 01/03/17 19:59 Pulse 79 01/03/17 19:59 Resp 18 01/03/17 19:59 BP 128/84 01/03/17 19:59 Pulse Ox 97 01/04/17 04:17 - Medical History PMH: Anxiety, Asthma, Back Problems, Bipolar Disorder, Depression, Gastritis, HTN, Schizophrenia, Chronic Pain (Back Pain) Surgical History: Hernia Repair, Tonsillectomy - [facility] Procedures DETOXIFICATION SERVICES FOR SUBSTANCE ABUSE TREATMENT (12/26/15) Family History: States: Unknown Family Hx - Social History Hx Tobacco Use: No Hx Alcohol Use: Yes Hx Substance Use: No - Immunization History Hx Tetanus Toxoid Vaccination: No Hx Influenza Vaccination: No Hx Pneumococcal Vaccination: No Review Of Systems Constitutional: Negative for: Fever, Chills Cardiovascular: Negative for: Chest Pain Gastrointestinal: Negative for: Abdominal Pain Psych: Positive for: Other (EtOH ingestion). Negative for: Suicidal ideation Physical Exam - Physical Exam Appears: No Acute Distress, Other (visibly intoxicated) Skin: Warm Head: Normacephalic Eye(s): bilateral: Normal Inspection Oral Mucosa: Moist, Other (alcohol on breath) Neck: Supple Chest: Symmetrical Cardiovascular: Rhythm Regular Respiratory: No Rales, No Rhonchi, No Wheezing Gastrointestinal/Abdominal: Bowel Sounds, Soft, No Tenderness Extremity: No Deformity, No Swelling Gait: Unsteady ED Course And Treatment O2 Sat by Pulse Oximetry: 97 (RA) Pulse Ox Interpretation: Normal Reevaluation Time: 05:15 Reassessment Condition: Improved ED OBSERVATION Discharge: Yes Date of observation admission: 01/03/17 Time of observation admission: 20:04 - Observation admission statement Patient is being placed in observation because:: Patient is acutely intoxicated. - Goals of Observation Goals of observation are:: Clinical sobriety. - Progress Note Progress Note: 01/03/17 20:15 Patient resting in room, vitals stable. 01/03/17 23:08 Vitals stable. 01/04/17 01:46 Vitals stable. 01/04/17 03:17 Vitals stable. Disposition Counseled Patient/Family Regarding: Studies Performed, Diagnosis, Need For Followup - Disposition Disposition: HOME/ ROUTINE Disposition Time: 20:04 Condition: FAIR - Clinical Impression Clinical Impression: Alcohol abuse with intoxication - Scribe Statement The provider has reviewed the documentation as recorded by the Omar Ramsey Provider Attestation: All medical record entries made by the Omar were at my direction and personally dictated by me. I have reviewed the chart and agree that the record accurately reflects my personal performance of the history, physical exam, medical decision making, and the department course for this patient. I have also personally directed, reviewed, and agree with the discharge instructions and disposition.
[2017-01-04 06:57] VITALS: BP 139/74; PULSE 88; RESP 17; TEMP 97.6; O2SAT 99
== END 2017-01-04 05:16 | disposition home or self-care (01) ==
LOC: C.ER 18:59 → C.9OBSV 20:04
PROVIDERS: ADMIT Emergency Medicine; ATTEND Emergency Medicine
DX: F10.129 Alcohol abuse with intoxication, unspecified (principal); F20.9 Schizophrenia, unspecified; I10 Essential (primary) hypertension; Y90.9 Presence of alcohol in blood, level not specified
CPT/HCPCS: 82948; 99284; G0378

== ENCOUNTER 2017-01-04 12:35 | Observation (INO) | payer MEDICARE ==
[2017-01-04 12:36] VITALS: BMI 28.7
--- NOTE | 2017-01-04 12:58 | C.PDOC ---
History Of Present Illness A 71 year old patient whose past medical history includes, Alcohol Abuse, Anxiety, Asthma, Back Problems, Bipolar Disorder, Depression, Gastritis, HTN, Schizophrenia, Chronic Pain (Back Pain), is brought into the emergency department via EMS for public intoxication. The patient is belligerent, awake, and is requesting food at this time. The patient denies any trauma, fever, chest pain, nausea, diarrhea, or any other complaints at this time. Chief Complaint (Nursing): Medical Clearance History Per: Patient History/Exam Limitations: intoxication Onset/Duration Of Symptoms: Hrs Current Symptoms Are (Timing): Still Present Past Medical History Reviewed: Historical Data, Nursing Documentation, Vital Signs Vital Signs: Last Vital Signs Temp 98.7 F 01/04/17 17:46 Pulse 67 01/04/17 17:46 Resp 16 01/04/17 17:46 BP 130/87 01/04/17 17:46 Pulse Ox 100 01/04/17 17:46 - Medical History PMH: Anxiety, Asthma, Back Problems, Bipolar Disorder, Depression, Gastritis, HTN, Schizophrenia, Chronic Pain (Back Pain) Surgical History: Hernia Repair, Tonsillectomy - [facility] Procedures DETOXIFICATION SERVICES FOR SUBSTANCE ABUSE TREATMENT (12/26/15) Family History: States: No Known Family Hx, Unknown Family Hx - Social History Hx Tobacco Use: No Hx Alcohol Use: Yes Hx Substance Use: No - Immunization History Hx Tetanus Toxoid Vaccination: No Hx Influenza Vaccination: No Hx Pneumococcal Vaccination: No Review Of Systems Except As Marked, All Systems Reviewed And Found Negative. Constitutional: Positive for: Other (intoxicated ). Negative for: Fever Cardiovascular: Negative for: Chest Pain Respiratory: Negative for: Shortness of Breath Gastrointestinal: Negative for: Nausea, Abdominal Pain, Diarrhea Physical Exam - Physical Exam Appears: Well, Non-toxic, No Acute Distress, Other (intoxicated ) Skin: Normal Color, Warm, Dry Head: Atraumatic, Normacephalic Eye(s): bilateral: Normal Inspection, PERRL, EOMI Nose: Normal Throat: Normal Neck: Normal Cardiovascular: Rhythm Regular Respiratory: Normal Breath Sounds Gastrointestinal/Abdominal: Normal Exam Back: Normal Inspection Extremity: Normal ROM Medical Decision Making Medical Decision Making: Progress Notes: -- ED Observation ED OBSERVATION Time of observation admission: 14:00 - Goals of Observation Goals of observation are:: 14:00 Patient is pending sobriety. - Progress Note Progress Note: 01/04/17 15:00 Patient is resting comfortably still pending sobriety. Disposition - Disposition Disposition: HOSPITALIZED Disposition Time: 14:00 Condition: GUARDED - Clinical Impression Clinical Impression: Alcohol abuse with intoxication - Scribe Statement The provider has reviewed the documentation as recorded by the Scribe Violet Iverson All medical record entries made by the Scribe were at my direction and personally dictated by me. I have reviewed the chart and agree that the record accurately reflects my personal performance of the history, physical exam, medical decision making, and the department course for this patient. I have also personally directed, reviewed, and agree with the discharge instructions and disposition. Physician Patient Turnover Patient Signed Over To: Ramón Edmonds Handoff Comments: Pending sobriety
[2017-01-04 17:46] VITALS: O2SAT 100
[2017-01-04 20:54] VITALS: BP 129/81; PULSE 70; RESP 18; TEMP 98.5
== END 2017-01-04 20:17 | disposition home or self-care (01) ==
LOC: C.ER 12:35 → C.9OBSV 15:58
PROVIDERS: ADMIT Emergency Medicine; ATTEND Emergency Medicine
DX: F10.129 Alcohol abuse with intoxication, unspecified (principal); Y90.9 Presence of alcohol in blood, level not specified
CPT/HCPCS: 99283; G0378

== ENCOUNTER 2017-01-06 20:05 | Observation (INO) | payer MEDICARE ==
[2017-01-06 20:06] VITALS: BMI 28.7
--- NOTE | 2017-01-06 20:57 | C.PDOC ---
History Of Present Illness Patient brought in via EMS after being found intoxicated in public. Denies physical complaints at this time. Time Seen by Provider: 01/06/17 20:54 Chief Complaint (Nursing): Substance Abuse History Per: Patient History/Exam Limitations: no limitations Onset/Duration Of Symptoms: Hrs Current Symptoms Are (Timing): Still Present Suicide/Self Injury Attempted (Context): None Modifying Factor(s): Alcohol Severity: None Pain Scale Rating Of: 0 Associated Symptoms: denies: Depression, Suicidal Thoughts, Suicidal Plan Involuntary Hold By: None Recent travel outside of the [place]: No Past Medical History Reviewed: Historical Data, Nursing Documentation, Vital Signs Vital Signs: Last Vital Signs Temp 96.9 F L 01/07/17 05:45 Pulse 78 01/07/17 05:45 Resp 18 01/07/17 05:45 BP 126/74 01/07/17 05:45 Pulse Ox 97 01/07/17 05:45 - Medical History PMH: Anxiety, Asthma, Back Problems, Bipolar Disorder, Depression, Gastritis, HTN, Schizophrenia, Chronic Pain (Back Pain) Surgical History: Hernia Repair, Tonsillectomy - [facility] Procedures DETOXIFICATION SERVICES FOR SUBSTANCE ABUSE TREATMENT (12/26/15) Family History: States: No Known Family Hx - Social History Hx Tobacco Use: No Hx Alcohol Use: Yes Hx Substance Use: No - Immunization History Hx Tetanus Toxoid Vaccination: No Hx Influenza Vaccination: No Hx Pneumococcal Vaccination: No Review Of Systems Constitutional: Negative for: Fever, Chills Gastrointestinal: Negative for: Nausea, Vomiting, Diarrhea Physical Exam - Physical Exam Appears: Non-toxic, No Acute Distress, Other (ETOH on breath) Skin: Warm, Dry Head: Normacephalic Oral Mucosa: Moist Chest: Symmetrical, No Tenderness Cardiovascular: Rhythm Regular Respiratory: No Rales, No Rhonchi, No Wheezing Gastrointestinal/Abdominal: Soft, No Tenderness Neurological/Psych: Oriented x3 ED Course And Treatment O2 Sat by Pulse Oximetry: 98 (Room air) Pulse Ox Interpretation: Normal ED OBSERVATION Discharge: Yes Date of observation admission: 01/06/17 Time of observation admission: 20:57 - Observation admission statement Patient is being placed in observation because:: acute alcohol intoxication - Goals of Observation Goals of observation are:: sobriety - Progress Note Progress Note: 01/06/17 20:57 vitals stable 01/07/17 00:02 no complaints 01/07/17 02:53 vitals stable Disposition Counseled Patient/Family Regarding: Studies Performed, Diagnosis - Disposition Disposition: HOME/ ROUTINE Disposition Time: 20:54 Condition: FAIR - Clinical Impression Clinical Impression: Alcohol abuse with intoxication - Scribe Statement The provider has reviewed the documentation as recorded by the Scribe Chalino Huang All medical record entries made by the Augustaibjackelyn were at my direction and personally dictated by me. I have reviewed the chart and agree that the record accurately reflects my personal performance of the history, physical exam, medical decision making, and the department course for this patient. I have also personally directed, reviewed, and agree with the discharge instructions and disposition.
--- NOTE | 2017-01-06 21:01 | C.PDOC ---
History Of Present Illness Patient presents to the ER with acute ETOH intoxication. Denies physical complaints at this time. Time Seen by Provider: 01/06/17 20:54 Chief Complaint (Nursing): Substance Abuse History Per: Patient History/Exam Limitations: no limitations Onset/Duration Of Symptoms: Hrs Current Symptoms Are (Timing): Still Present Suicide/Self Injury Attempted (Context): None Modifying Factor(s): Alcohol Severity: None Pain Scale Rating Of: 0 Associated Symptoms: denies: Depression, Suicidal Thoughts, Suicidal Plan Involuntary Hold By: None Recent travel outside of the [place]: No Past Medical History Reviewed: Historical Data, Nursing Documentation, Vital Signs Vital Signs: Last Vital Signs Temp 98.4 F 01/06/17 20:47 Pulse 93 H 01/06/17 20:47 Resp 20 01/06/17 20:47 BP 129/85 01/06/17 20:47 Pulse Ox 98 01/06/17 20:47 - Medical History PMH: Anxiety, Asthma, Back Problems, Bipolar Disorder, Depression, Gastritis, HTN, Schizophrenia, Chronic Pain (Back Pain) Surgical History: Hernia Repair, Tonsillectomy - [facility] Procedures DETOXIFICATION SERVICES FOR SUBSTANCE ABUSE TREATMENT (12/26/15) Family History: States: No Known Family Hx - Social History Hx Tobacco Use: No Hx Alcohol Use: Yes Hx Substance Use: No - Immunization History Hx Tetanus Toxoid Vaccination: No Hx Influenza Vaccination: No Hx Pneumococcal Vaccination: No Review Of Systems Constitutional: Negative for: Fever, Chills Gastrointestinal: Negative for: Nausea, Vomiting, Diarrhea Physical Exam - Physical Exam Appears: Non-toxic, No Acute Distress, Other (ETOH on breath) Skin: Warm, Dry Head: Normacephalic Oral Mucosa: Moist Chest: Symmetrical, No Tenderness Cardiovascular: Rhythm Regular Respiratory: No Rales, No Rhonchi, No Wheezing Gastrointestinal/Abdominal: Soft, No Tenderness Neurological/Psych: Oriented x3 ED Course And Treatment O2 Sat by Pulse Oximetry: 98 ED OBSERVATION Date of observation admission: 01/06/17 Time of observation admission: 20:30 - Observation admission statement Patient is being placed in observation because:: Acute ETOH intoxication - Goals of Observation Goals of observation are:: Sobriety - Progress Note Progress Note: 01/06/17 21:04 Vitals stable. Disposition - Disposition Forms: [employer] (Emirati) - Scribe Statement The provider has reviewed the documentation as recorded by the Scribe Chalino Huang All medical record entries made by the Augustaibjackelyn were at my direction and personally dictated by me. I have reviewed the chart and agree that the record accurately reflects my personal performance of the history, physical exam, medical decision making, and the department course for this patient. I have also personally directed, reviewed, and agree with the discharge instructions and disposition.
[2017-01-07 06:33] VITALS: BP 126/74; PULSE 78; RESP 18; TEMP 96.9
[2017-01-07 06:46] VITALS: O2SAT 98
== END 2017-01-07 06:34 | disposition home or self-care (01) ==
LOC: C.ER 20:05 → C.9OBSV 20:57
PROVIDERS: ADMIT Emergency Medicine; ATTEND Emergency Medicine
DX: F10.129 Alcohol abuse with intoxication, unspecified (principal); F20.9 Schizophrenia, unspecified; I10 Essential (primary) hypertension; J45.909 Unspecified asthma, uncomplicated; Y90.9 Presence of alcohol in blood, level not specified
CPT/HCPCS: 82948; 99285; G0378

== ENCOUNTER 2017-01-07 18:02 | Observation (INO) | payer MEDICARE ==
[2017-01-07 18:02] VITALS: BMI 28.7
--- NOTE | 2017-01-07 19:07 | C.PDOC ---
History Of Present Illness 71 y/o male brought to ED by BLS after being found intoxicated at [facility]. As per BLS patient had an unsteady gait and had 2 bottles confiscated. No physical complaints at this time. Time Seen by Provider: 01/07/17 19:05 Chief Complaint (Nursing): Substance Abuse History Per: Patient History/Exam Limitations: no limitations Onset/Duration Of Symptoms: Mins Current Symptoms Are (Timing): Still Present Suicide/Self Injury Attempted (Context): None Modifying Factor(s): Alcohol Severity: Mild Pain Scale Rating Of: 2 Recent travel outside of the [place]: No Additional History Per: EMS Past Medical History Reviewed: Historical Data, Nursing Documentation, Vital Signs Vital Signs: Last Vital Signs Temp 98 F 01/07/17 22:46 Pulse 79 01/08/17 02:14 Resp 18 01/08/17 02:14 BP 134/80 01/08/17 02:14 Pulse Ox 97 01/08/17 02:14 - Medical History PMH: Anxiety, Asthma, Back Problems, Bipolar Disorder, Depression, Gastritis, HTN, Schizophrenia, Chronic Pain (Back Pain) Surgical History: Hernia Repair, Tonsillectomy - [facility] Procedures DETOXIFICATION SERVICES FOR SUBSTANCE ABUSE TREATMENT (12/26/15) Family History: States: No Known Family Hx - Social History Hx Tobacco Use: No Hx Alcohol Use: Yes Hx Substance Use: No - Immunization History Hx Tetanus Toxoid Vaccination: No Hx Influenza Vaccination: No Hx Pneumococcal Vaccination: No Review Of Systems Constitutional: Negative for: Fever, Chills Cardiovascular: Negative for: Chest Pain Respiratory: Negative for: Shortness of Breath Gastrointestinal: Negative for: Nausea, Vomiting Skin: Negative for: Rash Physical Exam - Physical Exam Appears: Non-toxic, Other (ETOH on breath) Skin: Warm, Dry, No Rash Head: Normacephalic Oral Mucosa: Moist Neck: Normal ROM, Supple Chest: Symmetrical Cardiovascular: Rhythm Regular, No Murmur Respiratory: No Rales, No Rhonchi, No Wheezing Neurological/Psych: Oriented x3 Gait: Unsteady ED Course And Treatment O2 Sat by Pulse Oximetry: 99 (RA) ED OBSERVATION Discharge: Yes Date of observation admission: 01/07/17 Time of observation admission: 19:11 - Observation admission statement Patient is being placed in observation because:: ETOH intoxication - Goals of Observation Goals of observation are:: Sobriety - Progress Note Progress Note: 01/07/17 19:12 Vital signs stable 01/07/17 23:21 vitals stable 01/08/17 03:22 no complaints Disposition Counseled Patient/Family Regarding: Studies Performed, Diagnosis, Need For Followup - Disposition Disposition: HOME/ ROUTINE Disposition Time: 19:05 Condition: FAIR - Clinical Impression Clinical Impression: Alcoholism /alcohol abuse, Alcohol intoxication - Scribe Statement The provider has reviewed the documentation as recorded by the Omar Jo All medical record entries made by the Augustaibjackelyn were at my direction and personally dictated by me. I have reviewed the chart and agree that the record accurately reflects my personal performance of the history, physical exam, medical decision making, and the department course for this patient. I have also personally directed, reviewed, and agree with the discharge instructions and disposition.
[2017-01-07 22:47] VITALS: RESP 18
[2017-01-08 06:38] VITALS: BP 126/75; PULSE 84; TEMP 98.5; O2SAT 97
== END 2017-01-08 05:22 | disposition home or self-care (01) ==
LOC: C.ER 18:02 → C.9OBSV 19:06
PROVIDERS: ADMIT Emergency Medicine; ATTEND Emergency Medicine
DX: F10.229 Alcohol dependence with intoxication, unspecified (principal); J45.909 Unspecified asthma, uncomplicated; F32.9 Major depressive disorder, single episode, unspecified; I10 Essential (primary) hypertension; F20.9 Schizophrenia, unspecified
CPT/HCPCS: 82948; 99285; G0378

== ENCOUNTER 2017-01-13 00:33 | Emergency (ER) | payer MEDICARE ==
[2017-01-13 00:34] VITALS: BMI 28.7
[2017-01-13 00:48] VITALS: RESP 16; O2SAT 96
--- NOTE | 2017-01-13 02:06 | C.PDOC ---
History Of Present Illness 71 year old male brought in by EMS after being found intoxicated in public. Denies physical complaints at this time. Time Seen by Provider: 01/13/17 01:32 Chief Complaint (Nursing): Substance Abuse History Per: Patient History/Exam Limitations: no limitations Onset/Duration Of Symptoms: Hrs Current Symptoms Are (Timing): Still Present Suicide/Self Injury Attempted (Context): None Modifying Factor(s): Alcohol Associated Symptoms: denies: Depression, Suicidal Thoughts, Suicidal Plan Involuntary Hold By: None Recent travel outside of the [place]: No Past Medical History Reviewed: Historical Data, Nursing Documentation, Vital Signs Vital Signs: Last Vital Signs Temp 97 F L 01/13/17 02:00 Pulse 82 01/13/17 02:00 Resp 16 01/13/17 02:00 BP 105/73 01/13/17 02:00 Pulse Ox 96 01/13/17 02:07 - Medical History PMH: Anxiety, Asthma, Back Problems, Bipolar Disorder, Depression, Gastritis, HTN, Schizophrenia, Chronic Pain (Back Pain) Surgical History: Hernia Repair, Tonsillectomy - [facility] Procedures DETOXIFICATION SERVICES FOR SUBSTANCE ABUSE TREATMENT (12/26/15) Family History: States: Unknown Family Hx - Social History Hx Tobacco Use: No Hx Alcohol Use: Yes Hx Substance Use: No - Immunization History Hx Tetanus Toxoid Vaccination: No Hx Influenza Vaccination: No Hx Pneumococcal Vaccination: No Review Of Systems Constitutional: Negative for: Fever, Chills Gastrointestinal: Negative for: Nausea, Vomiting, Diarrhea Physical Exam - Physical Exam Appears: Non-toxic, No Acute Distress, Other (ETOH on breath) Skin: Normal Color, Warm, Dry Head: Atraumatic, Normacephalic Oral Mucosa: Moist Chest: Symmetrical, No Tenderness Cardiovascular: Rhythm Regular, No Murmur Respiratory: Normal Breath Sounds, No Rales, No Rhonchi, No Wheezing Gastrointestinal/Abdominal: Soft, No Tenderness Extremity: Normal ROM (x4) Neurological/Psych: Oriented x3, Normal Speech, Normal Cognition Gait: Steady ED Course And Treatment O2 Sat by Pulse Oximetry: 96 Disposition - Disposition Disposition: HOME/ ROUTINE Disposition Time: 02:06 Condition: IMPROVED Instructions: Alcohol Intoxication (ED) Forms: [employer] (Moldovan) - Clinical Impression Clinical Impression: Alcohol intoxication - Scribe Statement The provider has reviewed the documentation as recorded by the Scribe Chalino Huang All medical record entries made by the Scribe were at my direction and personally dictated by me. I have reviewed the chart and agree that the record accurately reflects my personal performance of the history, physical exam, medical decision making, and the department course for this patient. I have also personally directed, reviewed, and agree with the discharge instructions and disposition.
[2017-01-13 02:32] VITALS: BP 105/73; PULSE 82; TEMP 97
== END 2017-01-13 02:00 | disposition home or self-care (01) ==
LOC: C.ER 00:33
DX: F10.129 Alcohol abuse with intoxication, unspecified (principal); Y90.9 Presence of alcohol in blood, level not specified

== ENCOUNTER 2017-01-14 07:50 | Observation (INO) | payer MEDICARE ==
[2017-01-14 07:50] VITALS: BMI 28.7
[2017-01-14 08:03] VITALS: BP 115/78; PULSE 72; RESP 18; TEMP 97.5; O2SAT 98
--- NOTE | 2017-01-14 08:30 | C.PDOC ---
History Of Present Illness 71 yr old male presents to the ER for alcohol intoxication. Patient is very well known to the [facility], for multiple visits in a single day for alcohol intoxication. ROS is unable to to be obtained due to intoxication. Time Seen by Provider: 01/14/17 08:29 Chief Complaint (Nursing): Substance Abuse History Per: EMS History/Exam Limitations: intoxication Onset/Duration Of Symptoms: Persistent Current Symptoms Are (Timing): Still Present Modifying Factor(s): Alcohol Past Medical History Reviewed: Historical Data, Nursing Documentation, Vital Signs Vital Signs: Last Vital Signs Temp 97.5 F L 01/14/17 08:03 Pulse 72 01/14/17 08:03 Resp 18 01/14/17 08:03 BP 115/78 01/14/17 08:03 Pulse Ox 98 01/14/17 08:46 - Medical History PMH: Anxiety, Asthma, Back Problems, Bipolar Disorder, Depression, Gastritis, HTN, Schizophrenia, Chronic Pain (Back Pain) Surgical History: Hernia Repair, Tonsillectomy - [facility] Procedures DETOXIFICATION SERVICES FOR SUBSTANCE ABUSE TREATMENT (12/26/15) Family History: States: No Known Family Hx - Social History Hx Tobacco Use: No Hx Alcohol Use: Yes Hx Substance Use: No - Immunization History Hx Tetanus Toxoid Vaccination: No Hx Influenza Vaccination: No Hx Pneumococcal Vaccination: No Review Of Systems Review Of Systems: ROS cannot be obtained secondary to pt's inabilty to answer questions. Physical Exam - Physical Exam Appears: Non-toxic, No Acute Distress, Unkempt Skin: Warm, Dry Head: Atraumatic, Normacephalic Cardiovascular: Rhythm Regular, No Murmur Respiratory: Normal Breath Sounds, No Rales, No Rhonchi, No Stridor, No Wheezing Extremity: No Swelling Neurological/Psych: Other (Patient awakes to sharp sternal rubs but falls back asleep.) ED Course And Treatment O2 Sat by Pulse Oximetry: 98 (RA) Pulse Ox Interpretation: Normal Progress - Data Reviewed Data Reviewed: Old records ED OBSERVATION Discharge: Yes Date of observation admission: 01/14/17 Time of observation admission: 08:15 - Observation admission statement Patient is being placed in observation because:: INTOX, VAGRANCY - Goals of Observation Goals of observation are:: SOBRIETY - Progress Note Progress Note: 01/14/17 10:15 SLEEPING, NARD 01/14/17 12:34 advised by rn pt eloped PRIOR TO MY REEVAL. PER RN, PT NOTED TO HAVE STEADY GAIT. Disposition Counseled Patient/Family Regarding: Diagnosis - Disposition Disposition: ELOPEMENT - ER ONLY Disposition Time: 12:35 Condition: STABLE - Clinical Impression Clinical Impression: Alcohol abuse with intoxication - Scribe Statement The provider has reviewed the documentation as recorded by the Omar Gonzalez Provider Attestation: All medical record entries made by the Omar were at my direction and personally dictated by me. I have reviewed the chart and agree that the record accurately reflects my personal performance of the history, physical exam, medical decision making, and the department course for this patient. I have also personally directed, reviewed, and agree with the discharge instructions and disposition.
== END 2017-01-14 12:35 | disposition home or self-care (01) ==
LOC: C.ER 07:50 → C.9OBSV 08:15
PROVIDERS: ADMIT Emergency Medicine; ATTEND Emergency Medicine
DX: F10.129 Alcohol abuse with intoxication, unspecified (principal); F31.9 Bipolar disorder, unspecified; I10 Essential (primary) hypertension; Y90.9 Presence of alcohol in blood, level not specified

== ENCOUNTER 2017-01-17 21:29 | Emergency (ER) | payer MEDICARE ==
[2017-01-17 21:30] VITALS: BMI 28.7
[2017-01-17 21:58] VITALS: TEMP 99.3
--- NOTE | 2017-01-17 22:11 | C.PDOC ---
History Of Present Illness 71 year old male presents to the ED seeking a place to sleep. Patient is intoxicated, admits to drinking earlier, and was seen in ED for intoxication on 01/14/2017. He denies any physical complaints, suicidal, or homicidal ideations. Time Seen by Provider: 01/17/17 22:05 Chief Complaint (Nursing): Substance Abuse History Per: Patient History/Exam Limitations: no limitations Suicide/Self Injury Attempted (Context): None Modifying Factor(s): Alcohol Severity: None Pain Scale Rating Of: 0 Associated Symptoms: denies: Suicidal Thoughts, Suicidal Plan Involuntary Hold By: None Recent travel outside of the [place]: No Additional History Per: Prior Records Past Medical History Reviewed: Historical Data, Nursing Documentation, Vital Signs Vital Signs: Last Vital Signs Temp 99.3 F 01/17/17 21:53 Pulse 80 01/17/17 22:48 Resp 18 01/17/17 22:48 BP 129/78 01/17/17 22:48 Pulse Ox 97 01/17/17 22:48 - Medical History PMH: Anxiety, Asthma, Back Problems, Bipolar Disorder, Depression, Gastritis, HTN, Schizophrenia, Chronic Pain (Back Pain) Surgical History: Hernia Repair, Tonsillectomy - [facility] Procedures DETOXIFICATION SERVICES FOR SUBSTANCE ABUSE TREATMENT (12/26/15) Family History: States: Unknown Family Hx - Social History Hx Tobacco Use: No Hx Alcohol Use: Yes Hx Substance Use: No - Immunization History Hx Tetanus Toxoid Vaccination: No Hx Influenza Vaccination: No Hx Pneumococcal Vaccination: No Review Of Systems Constitutional: Negative for: Fever, Chills Cardiovascular: Negative for: Chest Pain, Palpitations Respiratory: Negative for: Cough, Shortness of Breath Gastrointestinal: Negative for: Nausea, Vomiting, Abdominal Pain, Diarrhea Physical Exam - Physical Exam Appears: Non-toxic, No Acute Distress, Other (EtOH on breath ) Head: No Tenderness, No Laceration, Other (chronic superficial contussion to the top of the head ) Eye(s): bilateral: Normal Inspection Oral Mucosa: Moist Neck: Supple Chest: Symmetrical, No Deformity Cardiovascular: Rhythm Regular, No Murmur Respiratory: Normal Breath Sounds, No Rales, No Rhonchi, No Wheezing Gastrointestinal/Abdominal: Soft, No Tenderness, No Distention, No Guarding, No Rebound Extremity: Normal ROM, No Tenderness Neurological/Psych: Oriented x3 Gait: Steady ED Course And Treatment O2 Sat by Pulse Oximetry: 99 (RA) Medical Decision Making Medical Decision Making: typical alcohol abuse, malingering, stable gait wants d/c from ED Disposition Doctor Will See Patient In The: Office Counseled Patient/Family Regarding: Studies Performed, Diagnosis - Disposition Referrals: Alcoholics Anonymous [Outside] [facility] [Outside] [facility] [Outside] [facility] [Outside] Disposition: HOME/ ROUTINE Disposition Time: 22:10 Condition: GOOD Instructions: Abuse of Alcohol (ED) Forms: [employer] (Hong Konger) Print Language: POLISH - Clinical Impression Clinical Impression: Alcohol abuse, Homelessness, Malingering - Scribe Statement The provider has reviewed the documentation as recorded by the Scribe Chloe Connelly All medical record entries made by the Scribe were at my direction and personally dictated by me. I have reviewed the chart and agree that the record accurately reflects my personal performance of the history, physical exam, medical decision making, and the department course for this patient. I have also personally directed, reviewed, and agree with the discharge instructions and disposition.
[2017-01-17 22:49] VITALS: BP 129/78; PULSE 80; RESP 18
[2017-01-18 00:33] VITALS: O2SAT 99
== END 2017-01-17 22:50 | disposition home or self-care (01) ==
LOC: C.ER 21:29
DX: F10.10 Alcohol abuse, uncomplicated (principal); Z59.0 Homelessness; Z76.5 Malingerer [conscious simulation]

== ENCOUNTER 2017-01-24 19:36 | Emergency (ER) | payer MEDICARE, OTHER ==
[2017-01-24 19:36] VITALS: BMI 28.7
[2017-01-24 19:55] VITALS: BP 129/76; PULSE 72; RESP 20; TEMP 97.9; O2SAT 96
== END 2017-01-24 19:52 | disposition left against medical advice (07) ==
LOC: C.ER 19:36
DX: Z02.89 Encounter for other administrative examinations (principal); F19.10 Other psychoactive substance abuse, uncomplicated

== ENCOUNTER 2017-01-28 14:14 | Emergency (ER) | payer MEDICARE ==
[2017-01-28 14:15] VITALS: BMI 28.7
[2017-01-28 14:31] VITALS: BP 96/61; PULSE 94; RESP 20; TEMP 97.8; O2SAT 95
== END 2017-01-28 15:00 | disposition left against medical advice (07) ==
LOC: C.ER 14:14
DX: Z02.89 Encounter for other administrative examinations (principal); F19.10 Other psychoactive substance abuse, uncomplicated

== ENCOUNTER 2017-01-30 16:04 | Emergency (ER) | payer MEDICARE ==
[2017-01-30 16:05] VITALS: BMI 28.7
--- NOTE | 2017-01-30 16:11 | C.PDOC ---
History Of Present Illness 71 y/o male presents to ED for public intoxication. Patient is well known to ER staff with multiple prior similar visits. Denies trauma or injury. No other medical or physical complaints. Time Seen by Provider: 01/30/17 16:10 History Per: Patient History/Exam Limitations: no limitations Onset/Duration Of Symptoms: Persistent Current Symptoms Are (Timing): Still Present Modifying Factor(s): Alcohol Associated Symptoms: denies: Suicidal Thoughts, Suicidal Plan Recent travel outside of the [place]: No Past Medical History Reviewed: Historical Data, Nursing Documentation, Vital Signs Vital Signs: Last Vital Signs Temp 97.6 F 01/30/17 16:34 Pulse 79 01/30/17 16:34 Resp 18 01/30/17 16:34 BP 112/72 01/30/17 16:34 Pulse Ox 100 01/30/17 16:34 - Medical History PMH: Anxiety, Asthma, Back Problems, Bipolar Disorder, Depression, Gastritis, HTN, Schizophrenia, Chronic Pain (Back Pain) Surgical History: Hernia Repair, Tonsillectomy - [facility] Procedures DETOXIFICATION SERVICES FOR SUBSTANCE ABUSE TREATMENT (12/26/15) Family History: States: Unknown Family Hx - Social History Hx Tobacco Use: No Hx Alcohol Use: Yes Hx Substance Use: No - Immunization History Hx Tetanus Toxoid Vaccination: No Hx Influenza Vaccination: No Hx Pneumococcal Vaccination: No Review Of Systems Constitutional: Negative for: Fever, Chills Cardiovascular: Negative for: Chest Pain, Palpitations Respiratory: Negative for: Cough, Shortness of Breath Skin: Negative for: Rash, Bruising Physical Exam - Physical Exam Appears: Non-toxic Skin: Warm, Dry Head: Atraumatic, Normacephalic Chest: Symmetrical Cardiovascular: Rhythm Regular Respiratory: No Rales, No Rhonchi, No Wheezing Gastrointestinal/Abdominal: Soft, No Tenderness Extremity: Normal ROM Neurological/Psych: Oriented x3 ED Course And Treatment O2 Sat by Pulse Oximetry: 100 Pulse Ox Interpretation: Normal Disposition Counseled Patient/Family Regarding: Studies Performed, Diagnosis - Disposition Referrals: [facility] [Outside] Disposition Time: 16:10 Condition: FAIR - Clinical Impression Clinical Impression: Alcoholism /alcohol abuse, Alcohol abuse with intoxication - Scribe Statement The provider has reviewed the documentation as recorded by the Scribe SM All medical record entries made by the Scribe were at my direction and personally dictated by me. I have reviewed the chart and agree that the record accurately reflects my personal performance of the history, physical exam, medical decision making, and the department course for this patient. I have also personally directed, reviewed, and agree with the discharge instructions and disposition. Physician Patient Turnover Patient Signed Over To: Pao Dale Handoff Comments: pending sobriety and disposition
[2017-01-31 01:14] VITALS: BP 128/76; PULSE 86; RESP 20; TEMP 97.9; O2SAT 98
== END 2017-01-31 01:17 | disposition home or self-care (01) ==
LOC: C.ER 16:04
DX: F10.229 Alcohol dependence with intoxication, unspecified (principal); Y90.9 Presence of alcohol in blood, level not specified

== ENCOUNTER 2017-02-01 00:16 | Emergency (ER) | payer MEDICARE ==
[2017-02-01 00:17] VITALS: BMI 28.7
[2017-02-01 00:38] VITALS: RESP 18
--- NOTE | 2017-02-01 00:39 | C.PDOC ---
History Of Present Illness 71 y/o male patient presents to the ER with acute ETOH intoxication. Patient denies any nausea, vomiting, or other complaints. Time Seen by Provider: 02/01/17 00:38 Chief Complaint (Nursing): Substance Abuse History Per: Patient History/Exam Limitations: no limitations Onset/Duration Of Symptoms: Hrs Suicide/Self Injury Attempted (Context): None Modifying Factor(s): Alcohol Severity: Mild Pain Scale Rating Of: 4 Associated Symptoms: denies: Suicidal Thoughts, Suicidal Plan Recent travel outside of the [place]: No Past Medical History Reviewed: Historical Data, Nursing Documentation, Vital Signs Vital Signs: Last Vital Signs Temp 98.3 F 02/01/17 00:20 Pulse 72 02/01/17 00:20 Resp 18 02/01/17 00:20 BP 127/76 02/01/17 00:20 Pulse Ox 99 02/01/17 00:50 - Medical History PMH: Anxiety, Asthma, Back Problems, Bipolar Disorder, Depression, Gastritis, HTN, Schizophrenia, Chronic Pain (Back Pain) Surgical History: Hernia Repair, Tonsillectomy - [facility] Procedures DETOXIFICATION SERVICES FOR SUBSTANCE ABUSE TREATMENT (12/26/15) Family History: States: No Known Family Hx - Social History Hx Tobacco Use: No Hx Alcohol Use: Yes Hx Substance Use: No - Immunization History Hx Tetanus Toxoid Vaccination: No Hx Influenza Vaccination: No Hx Pneumococcal Vaccination: No Review Of Systems Constitutional: Negative for: Fever Gastrointestinal: Negative for: Nausea, Vomiting Psych: Negative for: Suicidal ideation Physical Exam - Physical Exam Appears: Non-toxic, Other (ETOH on breath) Skin: Warm, Dry Head: Normacephalic Oral Mucosa: Moist Chest: Symmetrical Cardiovascular: Rhythm Regular Respiratory: No Rales, No Rhonchi, No Wheezing Gastrointestinal/Abdominal: Soft, No Tenderness Neurological/Psych: Oriented x3 ED Course And Treatment O2 Sat by Pulse Oximetry: 99 (room air) Pulse Ox Interpretation: Normal Reevaluation Time: 04:53 Reassessment Condition: Improved Disposition Counseled Patient/Family Regarding: Studies Performed, Diagnosis, Need For Followup - Disposition Referrals: [facility] [Outside] Disposition: HOME/ ROUTINE Disposition Time: 00:38 Condition: FAIR Instructions: Alcohol Intoxication (DC) Forms: [employer] ([place]wana) - Clinical Impression Clinical Impression: Alcohol intoxication, Alcoholism /alcohol abuse
[2017-02-01 06:56] VITALS: BP 130/80; PULSE 82; TEMP 98; O2SAT 98
== END 2017-02-01 06:52 | disposition home or self-care (01) ==
LOC: SUPCPDRO 00:16 → C.ER 00:16
DX: F10.229 Alcohol dependence with intoxication, unspecified (principal); Y90.9 Presence of alcohol in blood, level not specified

== ENCOUNTER 2017-02-04 16:10 | Emergency (ER) | payer MEDICARE ==
[2017-02-04 16:10] VITALS: BMI 28.7
[2017-02-04 16:13] VITALS: BP 129/82; PULSE 100; RESP 16; TEMP 98.3; O2SAT 96
--- NOTE | 2017-02-04 16:39 | C.PDOC ---
History Of Present Illness 71 year old male was brought to the ED by EMS for malingering in public. Patient states his only complaint is he is hungry and "want(s) a sandwich." He denies physical complaints, suicidal, or homicidal ideations. Time Seen by Provider: 02/04/17 16:14 Chief Complaint (Nursing): Substance Abuse History Per: Patient, EMS History/Exam Limitations: no limitations Suicide/Self Injury Attempted (Context): None Modifying Factor(s): None Severity: None Pain Scale Rating Of: 0 Associated Symptoms: denies: Suicidal Thoughts, Suicidal Plan Involuntary Hold By: None Recent travel outside of the [place]: No Past Medical History Reviewed: Historical Data, Nursing Documentation, Vital Signs Vital Signs: Last Vital Signs Temp 98.3 F 02/04/17 16:12 Pulse 100 H 02/04/17 16:12 Resp 16 02/04/17 16:12 BP 129/82 02/04/17 16:12 Pulse Ox 96 02/04/17 17:01 - Medical History PMH: Anxiety, Asthma, Back Problems, Bipolar Disorder, Depression, Gastritis, HTN, Schizophrenia, Chronic Pain (Back Pain) Surgical History: Hernia Repair, Tonsillectomy - [facility] Procedures DETOXIFICATION SERVICES FOR SUBSTANCE ABUSE TREATMENT (12/26/15) Family History: States: Unknown Family Hx - Social History Hx Tobacco Use: No Hx Alcohol Use: Yes Hx Substance Use: No - Immunization History Hx Tetanus Toxoid Vaccination: No Hx Influenza Vaccination: No Hx Pneumococcal Vaccination: No Review Of Systems Constitutional: Negative for: Fever, Chills Cardiovascular: Negative for: Chest Pain, Palpitations Respiratory: Negative for: Cough, Shortness of Breath Gastrointestinal: Negative for: Nausea, Vomiting, Abdominal Pain, Diarrhea Physical Exam - Physical Exam Appears: Non-toxic, No Acute Distress Skin: Warm, Dry, No Rash Head: Atraumatic Eye(s): bilateral: Normal Inspection, PERRL, EOMI Oral Mucosa: Moist Neck: Normal ROM, Supple Chest: Symmetrical, No Deformity Cardiovascular: Rhythm Regular, No Friction Rub, No Murmur Respiratory: No Rales, No Rhonchi, No Wheezing, Other (clear to auscultation bilaterally ) Gastrointestinal/Abdominal: Soft, No Tenderness, No Distention, No Guarding, No Rebound Back: Normal Inspection, No CVA Tenderness Extremity: Normal ROM, No Tenderness Neurological/Psych: Oriented x3, Normal Motor, Normal Sensation Gait: Steady ED Course And Treatment O2 Sat by Pulse Oximetry: 96 (RA) Pulse Ox Interpretation: Normal Disposition - Disposition Referrals: [facility] at [facility] [Outside] Disposition: HOME/ ROUTINE Disposition Time: 16:38 Condition: FAIR Additional Instructions: Return if worsened Forms: [facility] (Portuguese), General Discharge Instructions - Clinical Impression Clinical Impression: Medical assessment, Homelessness - PA / DIRECTOR CALL / Resident Statement MD/DO has reviewed & agrees with the documentation as recorded. - Scribe Statement The provider has reviewed the documentation as recorded by the Scribe Chloe Connelly All medical record entries made by the Omar were at my direction and personally dictated by me. I have reviewed the chart and agree that the record accurately reflects my personal performance of the history, physical exam, medical decision making, and the department course for this patient. I have also personally directed, reviewed, and agree with the discharge instructions and disposition.
== END 2017-02-04 16:55 | disposition home or self-care (01) ==
LOC: C.ER 16:10
DX: Z04.8 Encounter for examination and observation for other specified reasons (principal); Z59.0 Homelessness

== ENCOUNTER 2017-02-06 09:46 | Emergency (ER) | payer MEDICARE ==
[2017-02-06 09:46] VITALS: BMI 28.7
[2017-02-06 09:57] VITALS: TEMP 98.2
[2017-02-06] MEDS ORDERED: Sodium Chloride 0.9% 1,000 ML IV STA (10:36)
[2017-02-06] MEDS ORDERED: Sodium Chloride 0.9% 1,000 ML ONE (10:42)
[2017-02-06 10:57] VITALS: RESP 18
--- NOTE | 2017-02-06 10:58 | C.PDOC ---
History Of Present Illness 71 y/o M c PMHx alcohol abuse well known to this ED with frequent visits for alcohol intoxication BIBEMS actively vomiting. Patient reports lower abdominal pain, nonradiating, constant. Drank alcohol today. Denies fever, diarrhea, rash. Time Seen by Provider: 02/06/17 10:23 Chief Complaint (Nursing): GI Problem History Per: Patient History/Exam Limitations: no limitations Onset/Duration Of Symptoms: Days Current Symptoms Are (Timing): Still Present Past Medical History Reviewed: Historical Data, Nursing Documentation, Vital Signs Vital Signs: Last Vital Signs Temp 98.2 F 02/06/17 09:53 Pulse 89 02/06/17 13:09 Resp 18 02/06/17 13:09 BP 123/73 02/06/17 12:10 Pulse Ox 96 02/06/17 13:09 - Medical History PMH: Anxiety, Asthma, Back Problems, Bipolar Disorder, Depression, Gastritis, HTN, Schizophrenia, Chronic Pain (Back Pain) Surgical History: Hernia Repair, Tonsillectomy - [facility] Procedures DETOXIFICATION SERVICES FOR SUBSTANCE ABUSE TREATMENT (12/26/15) Family History: States: No Known Family Hx - Social History Hx Tobacco Use: No Hx Alcohol Use: Yes Hx Substance Use: No - Immunization History Hx Tetanus Toxoid Vaccination: No Hx Influenza Vaccination: No Hx Pneumococcal Vaccination: No Review Of Systems Except As Marked, All Systems Reviewed And Found Negative. Constitutional: Negative for: Fever Respiratory: Negative for: Shortness of Breath Physical Exam - Physical Exam Additional Physical Exam Comments: Constitutional: No acute distress. Disheveled. ETOH on breath Head: Normocephalic. Atraumatic. Eyes: PERRL. ENT: Moist mucous membranes. Neck: Supple. Cardiovascular: Regular rate. Radial pulse 2+ bilaterally. Chest: No tenderness. Respiratory: Clear to auscultation bilaterally. GI: Soft. Suprapubic Tenderness. Non distended. Bilious vomit on sheets and on floor Back: No CVA tenderness. Musculoskeletal: No tenderness or swelling of extremities. Skin: No rash. Neurologic: Alert, no focal deficit. ED Course And Treatment - Laboratory Results Result Diagrams: 02/06/17 10:57 02/06/17 10:57 O2 Sat by Pulse Oximetry: 100 (RA) Pulse Ox Interpretation: Normal Medical Decision Making Medical Decision Making: IVF and Zofran for symptom relief. Check labs and CT. FINDINGS: LOWER THORAX: No evidence of acute pathology at the lung bases. LIVER: Heterogeneous diffuse low-attenuation of the liver is noted suggestive of hepatic steatosis. Re- demonstration of low-attenuation lesion at the anterior aspect of the right liver lobe measures 11 millimeter. The portal vein is patent. GALLBLADDER AND BILE DUCTS: The gallbladder is mildly to moderately distended without definite CT evidence of acute cholecystitis. PANCREAS: Unremarkable. No gross lesion or ductal dilatation. SPLEEN: Unremarkable. ADRENALS: Unremarkable. No mass. KIDNEYS AND URETERS: Unremarkable. No hydronephrosis. No solid mass. VASCULATURE: Unremarkable. No aortic aneurysm. BOWEL: Small to moderate size hiatus hernia is noted. No evidence of high-grade bowel obstruction. Scattered colonic diverticulosis are seen without evidence of diverticulitis. APPENDIX: No evidence of appendicitis. PERITONEUM: Unremarkable. No free fluid. No free air. LYMPH NODES: Unremarkable. No enlarged lymph nodes. BLADDER: Mild diffuse urinary bladder wall thickening is noted. REPRODUCTIVE: Prostate is mildly enlarged. BONES: Moderate anterior spondylolisthesis of L5 relative to S1 is again noted. Severe narrowing of the disc space at L5-S1 is also again noted. OTHER FINDINGS: Small fat containing ventral hernia seen at the midline upper abdomen. IMPRESSION: No CT evidence of cholecystitis or pancreatitis. No evidence of acute pathology in the abdomen and pelvis. Small to moderate size hiatus hernia appears larger compared to the previous exam. Otherwise no significant interval change since the previous study. Patient took out IV and wishes to leave. Disposition - Disposition Disposition: HOME/ ROUTINE Disposition Time: 13:32 Condition: STABLE Prescriptions: Ondansetron ODT [Zofran ODT] 4 mg PO Q8 #12 odt Instructions: Acute Nausea and Vomiting (ED) Forms: [facility] (French) - Clinical Impression Clinical Impression: Abdominal pain - Scribe Statement The provider has reviewed the documentation as recorded by the Augustaibjackelyn Jo All medical record entries made by the Augustaibjackelyn were at my direction and personally dictated by me. I have reviewed the chart and agree that the record accurately reflects my personal performance of the history, physical exam, medical decision making, and the department course for this patient. I have also personally directed, reviewed, and agree with the discharge instructions and disposition.
[2017-02-06 11:01] LABS: BASO # 0.1 K/uL (0.0-0.2); BASO % 0.9 % (0.0-2.0); HEMATOCRIT 35.4 % (35.0-51.0); LYMPH # 0.6 K/uL (1.0-4.3); LYMPH % 10.3 % (20.0-40.0); MEAN CELL VOLUME 97.3 fL (80.0-94.0); MEAN PLATELET VOLUME 9.2 fL (7.2-11.7); MONO # 0.3 K/uL (0.0-0.8); NRBC % 0.1 % (0.0-2.0); RED CELL DISTRIBUTION WIDTH 16.8 % (11.5-14.5); WHITE BLOOD COUNT 5.7 K/uL (4.8-10.8)
[2017-02-06 11:18] LABS: CHLORIDE 97 mmol/L (98-107); POTASSIUM 3.7 mmol/L (3.6-5.2); SODIUM 136 mmol/L (132-148)
[2017-02-06 11:20] LABS: ALKALINE PHOSPHATASE 61 U/L (38-126); ALT/SGPT 34 U/L (21-72); AST/SGOT 51 U/L (17-59); BILIRUBIN,TOTAL 1.4 mg/dL (0.2-1.3); BLOOD UREA NITROGEN 14 mg/dL (9-20); CARBON DIOXIDE 25 mmol/L (22-30); GFR AFRICAN-AMERICAN > 60; TOTAL PROTEIN 8.6 g/dL (6.3-8.3)
[2017-02-06 11:21] LABS: ALB/GLOB RATIO 1.2 (1.0-2.1); ALCOHOL SERUM 21 mg/dl (0-10); CALCIUM 9.5 mg/dl (8.6-10.4); GLUCOSE,RANDOM 98 mg/dL (75-110)
[2017-02-06] MEDS ORDERED: Sodium Chloride 0.9% 1,000 ML IV ONE (12:19)
[2017-02-06] MEDS ORDERED: Iohexol 300 100 ML IJ ONE (12:31)
[2017-02-06] MEDS ORDERED: Iodixanol 320 MG/ML 100 ML BOTTLE IV ONE (12:32)
[2017-02-06 13:12] VITALS: PULSE 89
--- NOTE | 2017-02-06 13:14 | CT ---
PROCEDURE: CT Abdomen and Pelvis with contrast HISTORY: abd pain, vomiting COMPARISON: Comparison is made to the previous study dated 12/25/2015 TECHNIQUE: Contrast dose: 100 mL Visipaque three hundred twenty. Axial and reformatted coronal and sagittal CT images of the abdomen and pelvis were obtained after IV contrast administration. Radiation dose: Total exam DLP = 470.19 mGy-cm. This CT exam was performed using one or more of the following dose reduction techniques: Automated exposure control, adjustment of the mA and/or kV according to patient size, and/or use of iterative reconstruction technique. FINDINGS: LOWER THORAX: No evidence of acute pathology at the lung bases. LIVER: Heterogeneous diffuse low-attenuation of the liver is noted suggestive of hepatic steatosis. Re- demonstration of low-attenuation lesion at the anterior aspect of the right liver lobe measures 11 millimeter. The portal vein is patent. GALLBLADDER AND BILE DUCTS: The gallbladder is mildly to moderately distended without definite CT evidence of acute cholecystitis. PANCREAS: Unremarkable. No gross lesion or ductal dilatation. SPLEEN: Unremarkable. ADRENALS: Unremarkable. No mass. KIDNEYS AND URETERS: Unremarkable. No hydronephrosis. No solid mass. VASCULATURE: Unremarkable. No aortic aneurysm. BOWEL: Small to moderate size hiatus hernia is noted. No evidence of high-grade bowel obstruction. Scattered colonic diverticulosis are seen without evidence of diverticulitis. APPENDIX: No evidence of appendicitis. PERITONEUM: Unremarkable. No free fluid. No free air. LYMPH NODES: Unremarkable. No enlarged lymph nodes. BLADDER: Mild diffuse urinary bladder wall thickening is noted. REPRODUCTIVE: Prostate is mildly enlarged. BONES: Moderate anterior spondylolisthesis of L5 relative to S1 is again noted. Severe narrowing of the disc space at L5-S1 is also again noted. OTHER FINDINGS: Small fat containing ventral hernia seen at the midline upper abdomen. IMPRESSION: No CT evidence of cholecystitis or pancreatitis. No evidence of acute pathology in the abdomen and pelvis. Small to moderate size hiatus hernia appears larger compared to the previous exam. Otherwise no significant interval change since the previous study.
[2017-02-06 13:33] VITALS: O2SAT 100
[2017-02-06 13:42] VITALS: BP 126/79
== END 2017-02-06 14:08 | disposition home or self-care (01) ==
LOC: C.ER 09:46
DX: R10.30 Lower abdominal pain, unspecified (principal); I10 Essential (primary) hypertension
CPT/HCPCS: 74177; 80053; 83690; 85025; 96361; 96374; 96375; 99285; G0480; J2405; J2765; J7040; Q9967

== ENCOUNTER 2017-02-07 03:11 | Emergency (ER) | payer MEDICARE ==
[2017-02-07 03:11] VITALS: BMI 28.7
--- NOTE | 2017-02-07 03:33 | C.PDOC ---
History Of Present Illness 71 y/o M c PMHx alcohol abuse well known to this ED with frequent visits for alcohol intoxication BIBEMS due to alcohol intoxication. At the time of evaluation, pt is awake to verbal stimuli, admits "drinking today". Pt denies known trauma or injury, denies CP, SOB, abd. pain, V/D. FYI: records from previous multiple ED visits review. Last visit was on when pt was evaluated due to vomiting, blood work, CT abd/pelvis review and appears without acute abnormalities. Time Seen by Provider: 02/07/17 03:26 Chief Complaint (Nursing): Substance Abuse History Per: Patient, EMS Past Medical History Reviewed: Historical Data, Nursing Documentation, Vital Signs Vital Signs: Last Vital Signs Temp 98 F 02/07/17 06:34 Pulse 72 02/07/17 06:34 Resp 18 02/07/17 06:34 BP 112/70 02/07/17 06:34 Pulse Ox 97 02/07/17 06:34 - Medical History PMH: Anxiety, Asthma, Back Problems, Bipolar Disorder, Depression, Gastritis, HTN, Schizophrenia, Chronic Pain (Back Pain) Surgical History: Hernia Repair, Tonsillectomy - [facility] Procedures DETOXIFICATION SERVICES FOR SUBSTANCE ABUSE TREATMENT (12/26/15) Family History: States: Unknown Family Hx - Social History Hx Tobacco Use: No Hx Alcohol Use: Yes Hx Substance Use: No - Immunization History Hx Tetanus Toxoid Vaccination: No Hx Influenza Vaccination: No Hx Pneumococcal Vaccination: No Review Of Systems Review Of Systems: ROS cannot be obtained secondary to pt's inabilty to answer questions. (intoxicated) Physical Exam - Physical Exam Appears: Well, Non-toxic, No Acute Distress Skin: Normal Color, Warm, Dry, No Rash Head: Atraumatic, Normacephalic Eye(s): bilateral: PERRL Nose: No Flaring, No Discharge Oral Mucosa: Moist, No Drooling, No Trismus Tongue: Normal Appearing Lips: Normal Appearing Throat: No Drooling Neck: Normal ROM, Trachea Midline, Supple Cardiovascular: Rhythm Regular, No Murmur, No JVD Respiratory: No Decreased Breath Sounds, No Accessory Muscle Use, No Stridor, No Wheezing Gastrointestinal/Abdominal: Soft, No Tenderness, No Distention, No Guarding Back: No CVA Tenderness Extremity: Normal ROM, No Pedal Edema, No Deformity Neurological/Psych: Oriented x3, Normal Motor, Normal Sensation, Normal Reflexes ED Course And Treatment O2 Sat by Pulse Oximetry: 96 Pulse Ox Interpretation: Normal Progress Note: Pt was OBS in ED for 3 hours and remained stable during the ED evaluation. On re-evaluation, pt is awake, alert#3, ambulatory in ED with stable gait. Tolerate Po well in ED. Non-toxic. neuorlogicaly intact. FSBS 97. Pt has clinical findings c/w alcohol intoxication. Pt advised to F/u with PMD, Detox in 2-3 days for re-eval. Disposition Counseled Patient/Family Regarding: Diagnosis, Need For Followup - Disposition Referrals: [facility] at [facility] [Outside] Disposition: HOME/ ROUTINE Disposition Time: 06:14 Condition: STABLE Additional Instructions: Follow up with PMD in 2-3 days. return if any new changes. Instructions: Alcohol Intoxication (ED) Forms: [facility] (Namibian) - Clinical Impression Clinical Impression: Alcohol intoxication
[2017-02-07 06:37] VITALS: BP 112/70; PULSE 72; RESP 18; TEMP 98
[2017-02-07 19:53] VITALS: O2SAT 96
== END 2017-02-07 06:34 | disposition home or self-care (01) ==
LOC: C.ER 03:11
DX: F10.129 Alcohol abuse with intoxication, unspecified (principal); Y90.9 Presence of alcohol in blood, level not specified

== ENCOUNTER 2017-02-07 15:56 | Emergency (ER) | payer MEDICARE ==
[2017-02-07 15:57] VITALS: BMI 28.7
[2017-02-07 16:05] VITALS: BP 121/89; RESP 18; TEMP 97.9
[2017-02-07 19:08] VITALS: PULSE 83; O2SAT 95
--- NOTE | 2017-02-07 19:56 | C.PDOC ---
History Of Present Illness Pt was BIBEMS due to public alcohol intoxication. Time Seen by Provider: 02/07/17 16:58 Chief Complaint (Nursing): Substance Abuse History Per: Patient, EMS Onset/Duration Of Symptoms: Unknown (today) Current Symptoms Are (Timing): Still Present Suicide/Self Injury Attempted (Context): None Modifying Factor(s): Alcohol Severity: Moderate Associated Symptoms: denies: Suicidal Thoughts, Suicidal Plan Additional History Per: Prior Records Past Medical History Reviewed: Historical Data, Nursing Documentation, Vital Signs Vital Signs: Last Vital Signs Temp 97.9 F 02/07/17 16:03 Pulse 83 02/07/17 19:00 Resp 18 02/07/17 19:00 BP 121/89 02/07/17 16:03 Pulse Ox 95 02/07/17 19:00 - Medical History PMH: Anxiety, Asthma, Back Problems, Bipolar Disorder, Depression, Gastritis, HTN, Schizophrenia, Chronic Pain (Back Pain) Other PMH: Alcohol abuse Surgical History: Hernia Repair, Tonsillectomy - [facility] Procedures DETOXIFICATION SERVICES FOR SUBSTANCE ABUSE TREATMENT (12/26/15) Family History: States: Unknown Family Hx - Social History Hx Tobacco Use: No Hx Alcohol Use: Yes Hx Substance Use: No - Immunization History Hx Tetanus Toxoid Vaccination: No Hx Influenza Vaccination: No Hx Pneumococcal Vaccination: No Review Of Systems Review Of Systems: ROS cannot be obtained secondary to pt's inabilty to answer questions. Physical Exam - Physical Exam Appears: Non-toxic, No Acute Distress, Unkempt, Other (AOB, intoxicated) Skin: Normal Color, Warm, Dry Head: Atraumatic, Normacephalic Eye(s): bilateral: PERRL, EOMI Neck: Normal ROM, No Midline Cervical Tenderness, No Step Off Deformity, Supple Chest: Symmetrical, No Deformity Cardiovascular: Rhythm Regular Respiratory: Normal Breath Sounds, No Accessory Muscle Use Gastrointestinal/Abdominal: Soft, No Tenderness Extremity: Normal ROM, No Deformity Neurological/Psych: Eyes Open With Command, Other (Moving all extremities) Gait: Unable To Assess ED Course And Treatment O2 Sat by Pulse Oximetry: 95 Pulse Ox Interpretation: Normal Progress Note: Pt is now AAOx3. Steady gait. Clinically sober. Reevaluation Time: 19:40 Reassessment Condition: Improved Disposition Counseled Patient/Family Regarding: Diagnosis, Need For Followup - Disposition Referrals: [facility] [Outside] Disposition: HOME/ ROUTINE Disposition Time: 19:58 Condition: IMPROVED Instructions: Abuse of Alcohol (ED) - Clinical Impression Clinical Impression: Alcohol abuse
== END 2017-02-07 20:03 | disposition home or self-care (01) ==
LOC: C.ER 15:56
DX: F10.10 Alcohol abuse, uncomplicated (principal); Y90.9 Presence of alcohol in blood, level not specified

== ENCOUNTER 2017-02-09 23:09 | Emergency (ER) | payer MEDICARE ==
[2017-02-09 23:09] VITALS: BMI 28.7
--- NOTE | 2017-02-10 00:15 | C.PDOC ---
History Of Present Illness 71 year old male history of alcohol abuse BIBA for alcohol intoxication. Patient appears intoxicated, admits to drinking alcohol today. He denies falls or injuries. Time Seen by Provider: 02/09/17 23:10 Chief Complaint (Nursing): Substance Abuse History Per: Patient, EMS History/Exam Limitations: intoxication Onset/Duration Of Symptoms: Unknown Modifying Factor(s): Alcohol Severity: Moderate Past Medical History Reviewed: Historical Data, Nursing Documentation, Vital Signs Vital Signs: Last Vital Signs Temp 97.6 F 02/10/17 05:33 Pulse 83 02/10/17 05:33 Resp 20 02/10/17 05:33 BP 132/88 02/10/17 05:33 Pulse Ox 96 02/10/17 05:44 - Medical History PMH: Anxiety, Asthma, Back Problems, Bipolar Disorder, Depression, Gastritis, HTN, Schizophrenia, Chronic Pain (Back Pain) Surgical History: Hernia Repair, Tonsillectomy - [facility] Procedures DETOXIFICATION SERVICES FOR SUBSTANCE ABUSE TREATMENT (12/26/15) Family History: States: No Known Family Hx - Social History Hx Tobacco Use: No Hx Alcohol Use: Yes Hx Substance Use: No - Immunization History Hx Tetanus Toxoid Vaccination: No Hx Influenza Vaccination: No Hx Pneumococcal Vaccination: No Review Of Systems Except As Marked, All Systems Reviewed And Found Negative. Cardiovascular: Negative for: Chest Pain Respiratory: Negative for: Shortness of Breath Gastrointestinal: Negative for: Nausea, Vomiting, Abdominal Pain Neurological: Positive for: Other (alcohol intoxication) Physical Exam - Physical Exam Appears: Non-toxic, No Acute Distress, Unkempt, Other (Malodorous and appears intoxicated ) Skin: Normal Color, Warm, Dry Head: Atraumatic, Normacephalic Eye(s): bilateral: Normal Inspection, PERRL, EOMI Oral Mucosa: Moist Cardiovascular: Rhythm Regular (Rate Regular) Respiratory: Normal Breath Sounds, No Rales, No Rhonchi, No Wheezing Extremity: No Pedal Edema, No Calf Tenderness Extremity: Bilateral: Atraumatic, Normal Color And Temperature, Normal ROM Neurological/Psych: Other (awake, alert, intoxicated) ED Course And Treatment O2 Sat by Pulse Oximetry: 96 (RA) Pulse Ox Interpretation: Normal Progress Note: Accucheck ordered and reviewed. Patient pending sobriety. 2: 15am- Patient arousable to verbal stimuli, and appears comfortable. Pending sobriety. Reevaluation Time: 05:45 Reassessment Condition: Improved (Patient is AAOx3, ambulating normally in ED. He is clinically sober at this time, will discharge.) Disposition Counseled Patient/Family Regarding: Diagnosis, Need For Followup - Disposition Referrals: [facility] at [facility] [Outside] Disposition: HOME/ ROUTINE Disposition Time: 05:45 Condition: STABLE Instructions: Alcohol Intoxication (ED) Forms: [facility] (P[place]inean) Print Language: CAMBODIAN - Clinical Impression Clinical Impression: Alcohol intoxication - Scribe Statement The provider has reviewed the documentation as recorded by the Scribe Gagan De La Rosa Provider Attestation: All medical record entries made by the Augustaibe were at my direction and personally dictated by me. I have reviewed the chart and agree that the record accurately reflects my personal performance of the history, physical exam, medical decision making, and the department course for this patient. I have also personally directed, reviewed, and agree with the discharge instructions and disposition.
[2017-02-10 05:34] VITALS: BP 132/88; PULSE 83; RESP 20; TEMP 97.6; O2SAT 96
== END 2017-02-10 05:48 | disposition home or self-care (01) ==
LOC: C.ER 23:09
DX: F10.129 Alcohol abuse with intoxication, unspecified (principal); Y90.9 Presence of alcohol in blood, level not specified

== ENCOUNTER 2017-02-11 00:05 | Emergency (ER) | payer MEDICARE ==
[2017-02-11 00:06] VITALS: BMI 28.7
--- NOTE | 2017-02-11 00:35 | C.PDOC ---
History Of Present Illness Pt was BIBEMS due to public alcohol intoxication. Time Seen by Provider: 02/11/17 00:22 Chief Complaint (Nursing): Substance Abuse History Per: Patient, EMS History/Exam Limitations: intoxication Onset/Duration Of Symptoms: Unknown (today) Current Symptoms Are (Timing): Still Present Suicide/Self Injury Attempted (Context): None Modifying Factor(s): Alcohol Severity: Moderate Associated Symptoms: denies: Suicidal Thoughts, Suicidal Plan Additional History Per: Prior Records Past Medical History Reviewed: Historical Data, Nursing Documentation, Vital Signs Vital Signs: Last Vital Signs Temp 97.9 F 02/11/17 00:17 Pulse 77 02/11/17 00:17 Resp 16 02/11/17 00:17 BP 103/68 02/11/17 00:17 Pulse Ox 95 02/11/17 00:35 - Medical History PMH: Anxiety, Asthma, Back Problems, Bipolar Disorder, Depression, Gastritis, HTN, Schizophrenia, Chronic Pain (Back Pain) Other PMH: Alcohol abuse Surgical History: Hernia Repair, Tonsillectomy - [facility] Procedures DETOXIFICATION SERVICES FOR SUBSTANCE ABUSE TREATMENT (12/26/15) Family History: States: Unknown Family Hx - Social History Hx Tobacco Use: No Hx Alcohol Use: Yes Hx Substance Use: No - Immunization History Hx Tetanus Toxoid Vaccination: No Hx Influenza Vaccination: No Hx Pneumococcal Vaccination: No Review Of Systems Review Of Systems: ROS cannot be obtained secondary to pt's inabilty to answer questions. Physical Exam - Physical Exam Appears: No Acute Distress, Unkempt, Other (AOB) Skin: Normal Color, Warm, Dry Head: Atraumatic Eye(s): bilateral: PERRL Neck: Normal ROM, No Midline Cervical Tenderness, No Step Off Deformity, Supple Chest: Symmetrical, No Deformity Cardiovascular: Rhythm Regular Respiratory: Normal Breath Sounds, No Accessory Muscle Use Gastrointestinal/Abdominal: Soft, No Tenderness Extremity: Normal ROM, No Deformity Neurological/Psych: Normal Motor, Normal Sensation, Slow To Respond With Command Gait: Unable To Assess ED Course And Treatment O2 Sat by Pulse Oximetry: 95 Pulse Ox Interpretation: Normal Progress Note: Pt is now AAOx3. Steady gait. Clinically sober. Reassessment Condition: Improved Disposition Counseled Patient/Family Regarding: Studies Performed, Diagnosis, Need For Followup - Disposition Referrals: [facility] at [facility] [Outside] Disposition: HOME/ ROUTINE Disposition Time: 05:47 Condition: IMPROVED Instructions: Abuse of Alcohol (ED) - Clinical Impression Clinical Impression: Alcohol abuse
[2017-02-11 05:48] VITALS: BP 126/75; PULSE 86; RESP 18; TEMP 98.1; O2SAT 95
== END 2017-02-11 05:49 | disposition home or self-care (01) ==
LOC: C.ER 00:05
DX: F10.10 Alcohol abuse, uncomplicated (principal); Y90.9 Presence of alcohol in blood, level not specified

== ENCOUNTER 2017-02-13 15:01 | Emergency (ER) | payer MEDICARE ==
[2017-02-13 15:01] VITALS: BMI 28.7
[2017-02-13 15:19] VITALS: RESP 20; O2SAT 98
--- NOTE | 2017-02-13 15:55 | C.PDOC ---
History Of Present Illness 71 yr old male brought in via BLS, for being found sleeping on the sidewalk and alcohol intoxication. Patient is well known to the ER for multiple visits for alcohol intoxication. ROS is unable to be obtained due to alcohol intoxication. Time Seen by Provider: 02/13/17 15:39 Chief Complaint (Nursing): Substance Abuse History Per: Patient, EMS History/Exam Limitations: intoxication Onset/Duration Of Symptoms: Persistent Past Medical History Reviewed: Historical Data, Nursing Documentation, Vital Signs Vital Signs: Last Vital Signs Temp 97.7 F 02/13/17 15:17 Pulse 87 02/13/17 15:17 Resp 20 02/13/17 15:17 BP 116/73 02/13/17 15:17 Pulse Ox 98 02/13/17 15:57 - Medical History PMH: Anxiety, Asthma, Back Problems, Bipolar Disorder, Depression, Gastritis, HTN, Schizophrenia, Chronic Pain (Back Pain) Surgical History: Hernia Repair, Tonsillectomy - [facility] Procedures DETOXIFICATION SERVICES FOR SUBSTANCE ABUSE TREATMENT (12/26/15) Family History: States: No Known Family Hx - Social History Hx Tobacco Use: No Hx Alcohol Use: Yes Hx Substance Use: No - Immunization History Hx Tetanus Toxoid Vaccination: No Hx Influenza Vaccination: No Hx Pneumococcal Vaccination: No Review Of Systems Review Of Systems: ROS cannot be obtained secondary to pt's inabilty to answer questions. Physical Exam - Physical Exam Appears: Non-toxic, No Acute Distress, Unkempt Skin: Warm, Dry, No Rash Head: Atraumatic, Normacephalic Cardiovascular: Rhythm Regular, No Murmur Respiratory: Normal Breath Sounds, No Rales, No Rhonchi, No Stridor, No Wheezing Extremity: Normal ROM, No Swelling Neurological/Psych: Other (Patient sleeping, wakes up to deep sternal rubs) ED Course And Treatment O2 Sat by Pulse Oximetry: 98 (RA) Pulse Ox Interpretation: Normal Disposition Counseled Patient/Family Regarding: Diagnosis - Disposition Disposition: HOME/ ROUTINE Disposition Time: 17:50 Condition: STABLE Additional Instructions: follow up with medical clinic in 2 days call to make an appointment take medications as prescribed return to hospital if symptoms worsens or progress Instructions: Alcohol Intoxication (ED) Forms: [email or web address] [facility] (Wolof), General Discharge Instructions Print Language: GEORGIAN - Clinical Impression Clinical Impression: Intoxication, Alcohol abuse - Scribe Statement The provider has reviewed the documentation as recorded by the Omar Gonzalez Provider Attestation: All medical record entries made by the Omar were at my direction and personally dictated by me. I have reviewed the chart and agree that the record accurately reflects my personal performance of the history, physical exam, medical decision making, and the department course for this patient. I have also personally directed, reviewed, and agree with the discharge instructions and disposition.
[2017-02-13 18:37] VITALS: BP 110/70; PULSE 84; TEMP 97
== END 2017-02-13 18:37 | disposition home or self-care (01) ==
LOC: C.ER 15:01
DX: F10.129 Alcohol abuse with intoxication, unspecified (principal); Y90.9 Presence of alcohol in blood, level not specified

== ENCOUNTER 2017-02-14 21:42 | Emergency (ER) | payer MEDICARE ==
[2017-02-14 21:42] VITALS: BMI 28.7
[2017-02-14 22:18] VITALS: RESP 18; TEMP 97.9
--- NOTE | 2017-02-14 22:24 | C.PDOC ---
History Of Present Illness 71 year old male brought in by EMS after patient was found intoxicated in public. Patient was here yesterday for the same which is typical for the patient. Denies physical complaints at this time. Time Seen by Provider: 02/14/17 22:22 Chief Complaint (Nursing): Substance Abuse History Per: Patient History/Exam Limitations: no limitations Onset/Duration Of Symptoms: Hrs Current Symptoms Are (Timing): Still Present Suicide/Self Injury Attempted (Context): None Modifying Factor(s): Alcohol Associated Symptoms: denies: Depression, Suicidal Thoughts, Suicidal Plan Involuntary Hold By: None Recent travel outside of the [place]: No Past Medical History Reviewed: Historical Data, Nursing Documentation, Vital Signs Vital Signs: Last Vital Signs Temp 97.9 F 02/14/17 22:12 Pulse 90 02/14/17 22:12 Resp 18 02/14/17 22:12 BP 159/97 H 02/14/17 22:12 Pulse Ox 98 02/14/17 22:23 - Medical History PMH: Anxiety, Asthma, Back Problems, Bipolar Disorder, Depression, Gastritis, HTN, Schizophrenia, Chronic Pain (Back Pain) Surgical History: Hernia Repair, Tonsillectomy - [facility] Procedures DETOXIFICATION SERVICES FOR SUBSTANCE ABUSE TREATMENT (12/26/15) Family History: States: Unknown Family Hx - Social History Hx Tobacco Use: No Hx Alcohol Use: Yes Hx Substance Use: No - Immunization History Hx Tetanus Toxoid Vaccination: No Hx Influenza Vaccination: No Hx Pneumococcal Vaccination: No Review Of Systems Constitutional: Negative for: Fever, Chills Gastrointestinal: Negative for: Nausea, Vomiting, Diarrhea Physical Exam - Physical Exam Appears: Non-toxic, No Acute Distress, Other (ETOH on breath) Skin: Normal Color, Warm, Dry Head: Atraumatic, Normacephalic Eye(s): bilateral: Normal Inspection, EOMI Oral Mucosa: Moist Chest: Symmetrical Cardiovascular: Rhythm Regular Respiratory: Normal Breath Sounds, No Rales, No Rhonchi, No Wheezing Gastrointestinal/Abdominal: Soft, No Tenderness Neurological/Psych: Oriented x3, Normal Speech, Normal Cognition ED Course And Treatment O2 Sat by Pulse Oximetry: 98 (Room air) Pulse Ox Interpretation: Normal Medical Decision Making Medical Decision Making: typical alcohol abuse, malingering no acute issues. Disposition Doctor Will See Patient In The: Office Counseled Patient/Family Regarding: Studies Performed, Diagnosis - Disposition Referrals: [facility] [Outside] [email or web address] [Outside] Disposition: HOME/ ROUTINE Disposition Time: 22:23 Condition: GOOD Additional Instructions: seek nightly usp placement stop alcohol abuse. Instructions: Abuse of Alcohol (ED) Forms: [facility] (Grenadian) - Clinical Impression Clinical Impression: Homelessness, Alcohol abuse - Scribe Statement The provider has reviewed the documentation as recorded by the Scribe Chalino Huang All medical record entries made by the Scribe were at my direction and personally dictated by me. I have reviewed the chart and agree that the record accurately reflects my personal performance of the history, physical exam, medical decision making, and the department course for this patient. I have also personally directed, reviewed, and agree with the discharge instructions and disposition.
[2017-02-15 05:42] VITALS: BP 130/75; PULSE 82; O2SAT 95
== END 2017-02-15 05:42 | disposition home or self-care (01) ==
LOC: C.ER 21:42
DX: F10.10 Alcohol abuse, uncomplicated (principal); Y90.9 Presence of alcohol in blood, level not specified; Z59.0 Homelessness

== ENCOUNTER 2017-02-15 18:33 | Emergency (ER) | payer MEDICARE ==
[2017-02-15 18:33] VITALS: BMI 28.7
== END 2017-02-15 19:24 | disposition left against medical advice (07) ==
LOC: C.ER 18:33
DX: Z02.89 Encounter for other administrative examinations (principal); Z00.00 Encounter for general adult medical examination without abnormal findings

== ENCOUNTER 2017-02-18 11:21 | Emergency (ER) | payer MEDICARE ==
[2017-02-18 11:22] VITALS: BMI 28.7
[2017-02-18 11:28] VITALS: PULSE 70
--- NOTE | 2017-02-18 11:39 | C.PDOC ---
History Of Present Illness 71 y/o male brought to ED by S for ETOH intoxication. Patient is well known in ED for public ETOH intoxication and has no physical complaints at this time. Time Seen by Provider: 02/18/17 11:29 Chief Complaint (Nursing): Substance Abuse History Per: Patient History/Exam Limitations: no limitations Onset/Duration Of Symptoms: Hrs Current Symptoms Are (Timing): Still Present Suicide/Self Injury Attempted (Context): None Modifying Factor(s): Alcohol Past Medical History Reviewed: Historical Data, Nursing Documentation, Vital Signs Vital Signs: Last Vital Signs Temp 97.3 F L 02/18/17 11:26 Pulse 70 02/18/17 11:26 Resp 16 02/18/17 11:26 BP 129/81 02/18/17 11:26 Pulse Ox 95 02/18/17 11:40 - Medical History PMH: Anxiety, Asthma, Back Problems, Bipolar Disorder, Depression, Gastritis, HTN, Schizophrenia, Chronic Pain (Back Pain) Surgical History: Hernia Repair, T[facility]illectomy - [facility] Procedures DETOXIFICATION SERVICES FOR SUBSTANCE ABUSE TREATMENT (12/26/15) Family History: States: No Known Family Hx - Social History Hx Tobacco Use: No Hx Alcohol Use: Yes Hx Substance Use: No - Immunization History Hx Tetanus Toxoid Vaccination: No Hx Influenza Vaccination: No Hx Pneumococcal Vaccination: No Review Of Systems Constitutional: Negative for: Fever, Chills Cardiovascular: Negative for: Chest Pain Respiratory: Negative for: Shortness of Breath Gastrointestinal: Negative for: Nausea, Vomiting Skin: Negative for: Rash Physical Exam - Physical Exam Additional Physical Exam Comments: Constitutional: No acute distress. Head: Normocephalic. Atraumatic. Eyes: PERRL. ENT: Moist mucous membranes. Neck: Supple. Cardiovascular: Regular rate. Radial pulse 2+ bilaterally. Chest: No tenderness. Respiratory: Clear to auscultation bilaterally. GI: Soft. Nontender. Nondistended. Back: No CVA tenderness. Musculoskeletal: No tenderness or swelling of extremities. Skin: No rash. Neurologic: Alert, no focal deficit. ED Course And Treatment O2 Sat by Pulse Oximetry: 95 (RA) Pulse Ox Interpretation: Normal Medical Decision Making Medical Decision Making: Patient slept in ED for over 6 hours. At discharge, awake, alert, steady gait. Will discharge. Disposition - Disposition Disposition: HOME/ ROUTINE Disposition Time: 17:58 Condition: STABLE Instructions: Alcohol Intoxication (ED) Forms: [facility] (Korean) - Clinical Impression Clinical Impression: Alcohol abuse with intoxication - Scribe Statement The provider has reviewed the documentation as recorded by the Augustaibjackelyn Jo All medical record entries made by the Augustaibjackelyn were at my direction and personally dictated by me. I have reviewed the chart and agree that the record accurately reflects my personal performance of the history, physical exam, medical decision making, and the department course for this patient. I have also personally directed, reviewed, and agree with the discharge instructions and disposition.
[2017-02-18 18:03] VITALS: BP 120/80; RESP 20; TEMP 97; O2SAT 96
== END 2017-02-18 18:03 | disposition home or self-care (01) ==
LOC: C.ER 11:21
DX: F10.129 Alcohol abuse with intoxication, unspecified (principal); I10 Essential (primary) hypertension

== ENCOUNTER 2017-02-19 14:02 | Emergency (ER) | payer MEDICARE ==
[2017-02-19 14:02] VITALS: BMI 28.7
--- NOTE | 2017-02-19 14:14 | C.PDOC ---
History Of Present Illness 71 y/o male comes in for acute alcohol intoxication. Patient has multiple prior visits for the same complaint. Denies SI, HI, or somatic complaints. Time Seen by Provider: 02/19/17 14:05 History Per: Patient History/Exam Limitations: no limitations Onset/Duration Of Symptoms: Hrs Current Symptoms Are (Timing): Still Present Suicide/Self Injury Attempted (Context): None Modifying Factor(s): Alcohol Severity: Mild Associated Symptoms: denies: Suicidal Thoughts, Suicidal Plan Recent travel outside of the [place]: No Additional History Per: Patient Past Medical History Reviewed: Historical Data, Nursing Documentation, Vital Signs Vital Signs: Last Vital Signs Temp 98.4 F 02/19/17 19:48 Pulse 74 02/19/17 19:48 Resp 20 02/19/17 19:48 BP 106/69 02/19/17 19:48 Pulse Ox 100 02/19/17 19:48 - Medical History PMH: Anxiety, Asthma, Back Problems, Bipolar Disorder, Depression, Gastritis, HTN, Schizophrenia, Chronic Pain (Back Pain) Surgical History: Hernia Repair, Tonsillectomy - [facility] Procedures DETOXIFICATION SERVICES FOR SUBSTANCE ABUSE TREATMENT (12/26/15) Family History: States: Unknown Family Hx - Social History Hx Tobacco Use: No Hx Alcohol Use: Yes Hx Substance Use: No - Immunization History Hx Tetanus Toxoid Vaccination: No Hx Influenza Vaccination: No Hx Pneumococcal Vaccination: No Review Of Systems Except As Marked, All Systems Reviewed And Found Negative. Constitutional: Positive for: Other (Acute alcohol intoxication). Negative for : Fever, Chills Cardiovascular: Negative for: Chest Pain, Palpitations Respiratory: Negative for: Shortness of Breath Gastrointestinal: Negative for: Abdominal Pain Genitourinary: Negative for: Dysuria Skin: Negative for: Rash Neurological: Negative for: Dizziness Psych: Negative for: Suicidal ideation, Other (HI) Physical Exam - Physical Exam Appears: Non-toxic, No Acute Distress, Unkempt (Foul odor), Other (Acute alcohol intoxication, (+) AOB. no signs of trauma) Skin: Warm, Dry Head: Atraumatic, Normacephalic Eye(s): bilateral: Normal Inspection Chest: Symmetrical Cardiovascular: Rhythm Regular, No Murmur Respiratory: Normal Breath Sounds, No Rales, No Rhonchi, No Wheezing Gastrointestinal/Abdominal: Soft, No Tenderness Back: No CVA Tenderness Extremity: Normal ROM (x4) Neurological/Psych: Oriented x3 ED Course And Treatment Pulse Ox Interpretation: Normal Reevaluation Time: 21:15 Reassessment Condition: Improved (Patient ambulatory to the bathroom. Gait stable. he is ready for discharge.) Disposition - Disposition Disposition: HOME/ ROUTINE Disposition Time: 21:16 Condition: GOOD - Clinical Impression Clinical Impression: Alcohol intoxication - Scribe Statement The provider has reviewed the documentation as recorded by the Augustaibjackelyn hagen All medical record entries made by the Augustaibjackelyn were at my direction and personally dictated by me. I have reviewed the chart and agree that the record accurately reflects my personal performance of the history, physical exam, medical decision making, and the department course for this patient. I have also personally directed, reviewed, and agree with the discharge instructions and disposition.
[2017-02-19 17:38] VITALS: O2SAT 100
[2017-02-19 19:53] VITALS: BP 106/69; PULSE 74; RESP 20; TEMP 98.4
== END 2017-02-19 20:58 | disposition home or self-care (01) ==
LOC: C.ER 14:02
DX: F10.129 Alcohol abuse with intoxication, unspecified (principal); Y90.9 Presence of alcohol in blood, level not specified

== ENCOUNTER 2017-02-28 13:14 | Emergency (ER) | payer MEDICARE ==
[2017-02-28 13:15] VITALS: BMI 28.7
== END 2017-02-28 13:31 | disposition left against medical advice (07) ==
LOC: C.ER 13:14
DX: Z02.89 Encounter for other administrative examinations (principal); F19.10 Other psychoactive substance abuse, uncomplicated

== ENCOUNTER 2017-03-02 18:58 | Emergency (ER) | payer MEDICARE ==
[2017-03-02 18:58] VITALS: BMI 28.7
--- NOTE | 2017-03-02 19:12 | C.PDOC ---
History Of Present Illness Patient brought in by EMS after being found intoxicated in public. Denies physical complaints at this time. Time Seen by Provider: 03/02/17 19:10 Chief Complaint (Nursing): Substance Abuse History Per: Patient History/Exam Limitations: no limitations Onset/Duration Of Symptoms: Hrs Current Symptoms Are (Timing): Still Present Suicide/Self Injury Attempted (Context): None Modifying Factor(s): Alcohol Severity: None Pain Scale Rating Of: 0 Associated Symptoms: denies: Depression, Suicidal Thoughts, Suicidal Plan Involuntary Hold By: None Recent travel outside of the [place]: No Past Medical History Reviewed: Historical Data, Nursing Documentation, Vital Signs Vital Signs: Last Vital Signs Temp 97.6 F 03/03/17 00:04 Pulse 76 03/03/17 00:04 Resp 16 03/03/17 00:04 BP 128/75 03/03/17 00:04 Pulse Ox 98 03/03/17 00:04 - Medical History PMH: Anxiety, Asthma, Back Problems, Bipolar Disorder, Depression, Gastritis, HTN, Schizophrenia, Chronic Pain (Back Pain) Surgical History: Hernia Repair, Tonsillectomy - [facility] Procedures DETOXIFICATION SERVICES FOR SUBSTANCE ABUSE TREATMENT (12/26/15) Family History: States: No Known Family Hx - Social History Hx Tobacco Use: No Hx Alcohol Use: Yes Hx Substance Use: No - Immunization History Hx Tetanus Toxoid Vaccination: No Hx Influenza Vaccination: No Hx Pneumococcal Vaccination: No Review Of Systems Constitutional: Negative for: Fever, Chills Gastrointestinal: Negative for: Nausea, Vomiting, Diarrhea Physical Exam - Physical Exam Appears: Non-toxic, No Acute Distress, Other (ETOH on breath) Skin: Warm, Dry Head: Normacephalic Oral Mucosa: Moist Chest: Symmetrical Cardiovascular: Rhythm Regular Respiratory: No Rales, No Rhonchi, No Wheezing Gastrointestinal/Abdominal: Soft, No Tenderness Neurological/Psych: Oriented x3 ED Course And Treatment O2 Sat by Pulse Oximetry: 98 (Room air) Pulse Ox Interpretation: Normal Reevaluation Time: 05:35 Reassessment Condition: Improved Disposition Counseled Patient/Family Regarding: Studies Performed, Diagnosis, Need For Followup - Disposition Referrals: [facility] [Outside] Disposition Time: 19:12 Condition: FAIR Instructions: Alcohol Intoxication (DC) Forms: [employer] (Martiniquais) - Clinical Impression Clinical Impression: Alcohol abuse with intoxication - Scribe Statement The provider has reviewed the documentation as recorded by the Scribe Chalino Huang All medical record entries made by the Omar were at my direction and personally dictated by me. I have reviewed the chart and agree that the record accurately reflects my personal performance of the history, physical exam, medical decision making, and the department course for this patient. I have also personally directed, reviewed, and agree with the discharge instructions and disposition.
[2017-03-03 05:54] VITALS: RESP 18; TEMP 97.9
[2017-03-03 05:58] VITALS: BP 145/76; PULSE 83; O2SAT 100
== END 2017-03-03 05:58 | disposition home or self-care (01) ==
LOC: C.ER 18:58
DX: F10.120 Alcohol abuse with intoxication, uncomplicated (principal); Y90.9 Presence of alcohol in blood, level not specified

== ENCOUNTER 2017-03-03 16:03 | Emergency (ER) | payer MEDICARE ==
[2017-03-03 16:04] VITALS: BMI 28.7
--- NOTE | 2017-03-03 19:35 | C.PDOC ---
History Of Present Illness 71 year old male with Hx of ETOH abuse brought to ED for alcohol intoxication. He admits to drinking alcohol, and denies physical symptoms. Time Seen by Provider: 03/03/17 19:02 Chief Complaint (Nursing): Substance Abuse History Per: Patient, EMS History/Exam Limitations: intoxication Onset/Duration Of Symptoms: Unknown Current Symptoms Are (Timing): Still Present Suicide/Self Injury Attempted (Context): None Modifying Factor(s): Alcohol Severity: Mild Associated Symptoms: denies: Suicidal Thoughts, Suicidal Plan Past Medical History Reviewed: Historical Data, Nursing Documentation, Vital Signs Vital Signs: Last Vital Signs Temp 98.3 F 03/04/17 00:08 Pulse 74 03/04/17 00:08 Resp 18 03/04/17 00:08 BP 143/77 03/04/17 00:08 Pulse Ox 96 03/04/17 00:08 - Medical History PMH: Anxiety, Asthma, Back Problems, Bipolar Disorder, Depression, Gastritis, HTN, Schizophrenia, Chronic Pain (Back Pain) Surgical History: Hernia Repair, Tonsillectomy - [facility] Procedures DETOXIFICATION SERVICES FOR SUBSTANCE ABUSE TREATMENT (12/26/15) Family History: States: No Known Family Hx - Social History Hx Tobacco Use: No Hx Alcohol Use: Yes Hx Substance Use: No - Immunization History Hx Tetanus Toxoid Vaccination: No Hx Influenza Vaccination: No Hx Pneumococcal Vaccination: No Review Of Systems Except As Marked, All Systems Reviewed And Found Negative. Constitutional: Positive for: Other (Intoxicated, malodorous ) Cardiovascular: Negative for: Chest Pain Respiratory: Negative for: Shortness of Breath Gastrointestinal: Negative for: Abdominal Pain Physical Exam - Physical Exam Appears: Well, Non-toxic, Unkempt, Other (Intoxicated) Skin: Normal Color, Warm, Dry Head: Normacephalic Oral Mucosa: Moist Neck: Supple Cardiovascular: Rhythm Regular Respiratory: Normal Breath Sounds, No Rales, No Rhonchi, No Wheezing Gastrointestinal/Abdominal: Normal Exam, Bowel Sounds, Soft, No Tenderness Extremity: Normal ROM, No Pedal Edema, No Calf Tenderness, No Swelling Neurological/Psych: Other (awake, alert, intoxicated) ED Course And Treatment O2 Sat by Pulse Oximetry: 97 (On RA) Pulse Ox Interpretation: Normal Progress Note: Patient pending sobriety. Disposition - Disposition Disposition Time: 01:00 Condition: STABLE Forms: [facility] (Panamanian) - Clinical Impression Clinical Impression: Alcohol intoxication - Scribe Statement The provider has reviewed the documentation as recorded by the Scribe Eulogio Sanchze All medical record entries made by the Scribe were at my direction and personally dictated by me. I have reviewed the chart and agree that the record accurately reflects my personal performance of the history, physical exam, medical decision making, and the department course for this patient. I have also personally directed, reviewed, and agree with the discharge instructions and disposition. Physician Patient Turnover Patient Signed Over To: bJ Riddle Handoff Comments: pendign sobriety
[2017-03-04 06:01] VITALS: BP 134/74; PULSE 74; RESP 20; TEMP 97.3; O2SAT 95
== END 2017-03-04 05:58 | disposition home or self-care (01) ==
LOC: C.ER 16:03
DX: F10.120 Alcohol abuse with intoxication, uncomplicated (principal); Y90.9 Presence of alcohol in blood, level not specified

== ENCOUNTER 2017-03-04 18:21 | Emergency (ER) | payer MEDICARE ==
[2017-03-04 18:22] VITALS: BMI 28.7
[2017-03-04 18:36] VITALS: RESP 20
--- NOTE | 2017-03-04 18:56 | C.PDOC ---
History Of Present Illness 71 year old male is brought to the ED by EMS for evaluation after he was found publicly intoxicated around [facility] prior to arrival. Patient is familiar to this ED and has had multiple visits concerning similar complaints. Patient admits to drinking earlier today and has no physical complaints at this time. Time Seen by Provider: 03/04/17 18:52 Chief Complaint (Nursing): Substance Abuse History Per: Patient, EMS History/Exam Limitations: intoxication Onset/Duration Of Symptoms: Hrs Current Symptoms Are (Timing): Still Present Suicide/Self Injury Attempted (Context): None Modifying Factor(s): Alcohol Associated Symptoms: denies: Suicidal Thoughts, Suicidal Plan Involuntary Hold By: None Recent travel outside of the [place]: No Additional History Per: Patient, EMS Past Medical History Reviewed: Historical Data, Nursing Documentation, Vital Signs Vital Signs: Last Vital Signs Temp 97.3 F L 03/04/17 19:37 Pulse 93 H 03/04/17 19:37 Resp 20 03/04/17 19:37 BP 138/77 03/04/17 19:37 Pulse Ox 98 03/04/17 19:37 - Medical History PMH: Anxiety, Asthma, Back Problems, Bipolar Disorder, Depression, Gastritis, HTN, Schizophrenia, Chronic Pain (Back Pain) Surgical History: Hernia Repair, Tonsillectomy - [facility] Procedures DETOXIFICATION SERVICES FOR SUBSTANCE ABUSE TREATMENT (12/26/15) Family History: States: Unknown Family Hx - Social History Hx Tobacco Use: No Hx Alcohol Use: Yes Hx Substance Use: No - Immunization History Hx Tetanus Toxoid Vaccination: No Hx Influenza Vaccination: No Hx Pneumococcal Vaccination: No Review Of Systems Psych: Positive for: Other (EtOH intoxication ) Physical Exam - Physical Exam Appears: Non-toxic, No Acute Distress, Unkempt, Other (dishevelled, foul- smelling ) Skin: Normal Color, Warm, Dry Head: Atraumatic, Normacephalic Eye(s): bilateral: Normal Inspection Oral Mucosa: Moist, Other (alcohol on breath ) Neck: Supple Chest: Symmetrical, No Deformity, No Tenderness Cardiovascular: Rhythm Regular, No Murmur Respiratory: Normal Breath Sounds, No Rales, No Rhonchi, No Wheezing Extremity: Normal ROM, Capillary Refill (less than 2 seconds ) Neurological/Psych: Other (arousable to touch and verbal stimuli ) Gait: Steady ED Course And Treatment O2 Sat by Pulse Oximetry: 99 (on RA) Pulse Ox Interpretation: Normal Medical Decision Making Medical Decision Making: typical alcohol abuse/malingering. no acute injuries. stable for d/c not too cold for d/c long-term placement encouraged. Disposition Doctor Will See Patient In The: Office Counseled Patient/Family Regarding: Studies Performed, Diagnosis - Disposition Referrals: [facility] Anonymous [Outside] [facility] [Outside] [facility] [Outside] Disposition: HOME/ ROUTINE Disposition Time: 18:56 Condition: GOOD Additional Instructions: seek regular nightly Homeless Alf Placement. seek AA for alcohol abuse issues. Instructions: Abuse of Alcohol (ED) Forms: [employer] (Faroese) - Clinical Impression Clinical Impression: Alcohol abuse, Malingering - Scribe Statement The provider has reviewed the documentation as recorded by the Scribe (Chrissy Leiva) Provider Attestation: All medical record entries made by the Scribe were at my direction and personally dictated by me. I have reviewed the chart and agree that the record accurately reflects my personal performance of the history, physical exam, medical decision making, and the department course for this patient. I have also personally directed, reviewed, and agree with the discharge instructions and disposition.
[2017-03-04 19:38] VITALS: BP 138/77; PULSE 93; TEMP 97.3
[2017-03-04 20:54] VITALS: O2SAT 99
== END 2017-03-04 19:38 | disposition home or self-care (01) ==
LOC: C.ER 18:21
DX: F10.10 Alcohol abuse, uncomplicated (principal); Y90.9 Presence of alcohol in blood, level not specified; Z76.5 Malingerer [conscious simulation]

== ENCOUNTER 2017-03-12 21:24 | Emergency (ER) | payer MEDICARE ==
[2017-03-12 21:24] VITALS: BMI 28.7
--- NOTE | 2017-03-12 21:38 | C.PDOC ---
History Of Present Illness 71 year old male brought in via EMS after being found intoxicated in public. Denies physical complaints at this time. Chief Complaint (Nursing): Substance Abuse History Per: Patient History/Exam Limitations: no limitations Onset/Duration Of Symptoms: Hrs Current Symptoms Are (Timing): Still Present Suicide/Self Injury Attempted (Context): Cut Wrists Modifying Factor(s): Alcohol Associated Symptoms: denies: Depression, Suicidal Thoughts, Suicidal Plan Involuntary Hold By: None Recent travel outside of the [place]: No Past Medical History Reviewed: Historical Data, Nursing Documentation, Vital Signs Vital Signs: Last Vital Signs Temp 98.0 F 03/13/17 01:51 Pulse 96 H 03/13/17 01:51 Resp 18 03/13/17 01:51 BP 122/90 03/13/17 01:51 Pulse Ox 97 03/13/17 01:51 - Medical History PMH: Anxiety, Asthma, Back Problems, Bipolar Disorder, Depression, Gastritis, HTN, Schizophrenia, Chronic Pain (Back Pain) Surgical History: Hernia Repair, Tonsillectomy - [facility] Procedures DETOXIFICATION SERVICES FOR SUBSTANCE ABUSE TREATMENT (12/26/15) Family History: States: Unknown Family Hx - Social History Hx Tobacco Use: No Hx Alcohol Use: Yes Hx Substance Use: No - Immunization History Hx Tetanus Toxoid Vaccination: No Hx Influenza Vaccination: No Hx Pneumococcal Vaccination: No Review Of Systems Constitutional: Negative for: Fever, Chills Gastrointestinal: Negative for: Nausea, Vomiting, Diarrhea Physical Exam - Physical Exam Appears: Non-toxic, No Acute Distress, Other (ETOH on breath) Skin: Normal Color, Warm, Dry Head: Atraumatic, Normacephalic Oral Mucosa: Moist Neck: Normal, Supple Chest: Symmetrical Cardiovascular: Rhythm Regular Respiratory: Normal Breath Sounds, No Rales, No Rhonchi, No Wheezing Gastrointestinal/Abdominal: Soft, No Tenderness Neurological/Psych: Oriented x3, Normal Speech, Normal Cognition ED Course And Treatment O2 Sat by Pulse Oximetry: 100 (Room air) Pulse Ox Interpretation: Normal Disposition Counseled Patient/Family Regarding: Diagnosis - Disposition Referrals: [facility] at [facility] [Outside] Disposition: HOME/ ROUTINE Disposition Time: 05:23 Condition: STABLE Instructions: Abuse of Alcohol (ED) Forms: [employer] (Serbian) - POA Present On Arrival: None - Clinical Impression Clinical Impression: Alcohol abuse with uncomplicated intoxication - Scribe Statement The provider has reviewed the documentation as recorded by the Augustaibjackelyn Huang All medical record entries made by the Omar were at my direction and personally dictated by me. I have reviewed the chart and agree that the record accurately reflects my personal performance of the history, physical exam, medical decision making, and the department course for this patient. I have also personally directed, reviewed, and agree with the discharge instructions and disposition.
[2017-03-13 01:52] VITALS: RESP 18
[2017-03-13 05:24] VITALS: BP 118/89; PULSE 90; TEMP 97.8; O2SAT 100
== END 2017-03-13 05:25 | disposition home or self-care (01) ==
LOC: C.ER 21:24
DX: F10.129 Alcohol abuse with intoxication, unspecified (principal); Y90.9 Presence of alcohol in blood, level not specified

== ENCOUNTER 2017-03-13 19:55 | Emergency (ER) | payer MEDICARE ==
[2017-03-13 19:56] VITALS: BMI 28.7
--- NOTE | 2017-03-13 20:07 | C.PDOC ---
Time Seen by Provider: 03/13/17 20:06 Chief Complaint (Nursing): Substance Abuse Past Medical History Vital Signs: Last Vital Signs Temp 98.4 F 03/13/17 19:58 Pulse 80 03/13/17 19:58 Resp 16 03/13/17 19:58 BP 113/74 03/13/17 19:58 Pulse Ox 97 03/13/17 19:58 - Medical History PMH: Anxiety, Asthma, Back Problems, Bipolar Disorder, Depression, Gastritis, HTN, Schizophrenia, Chronic Pain (Back Pain) Surgical History: Hernia Repair, Tonsillectomy - [facility] Procedures DETOXIFICATION SERVICES FOR SUBSTANCE ABUSE TREATMENT (12/26/15) Family History: States: Unknown Family Hx - Social History Hx Tobacco Use: No Hx Alcohol Use: Yes Hx Substance Use: No - Immunization History Hx Tetanus Toxoid Vaccination: No Hx Influenza Vaccination: No Hx Pneumococcal Vaccination: No ED Course And Treatment O2 Sat by Pulse Oximetry: 97 Disposition Counseled Patient/Family Regarding: Studies Performed, Diagnosis, Need For Followup - Disposition Referrals: [facility] at [facility] [Outside] Disposition Time: 20:06 Condition: FAIR Instructions: Alcohol Intoxication (DC) - Clinical Impression Clinical Impression: Alcohol abuse with intoxication
--- NOTE | 2017-03-13 20:08 | C.PDOC ---
History Of Present Illness 71 y/o male presents to the ED intoxicated. The patient denies dizziness, vomiting, and headache. Wants a place to sleep Time Seen by Provider: 03/13/17 20:06 Chief Complaint (Nursing): Substance Abuse History Per: EMS History/Exam Limitations: no limitations Onset/Duration Of Symptoms: Hrs Current Symptoms Are (Timing): Still Present Suicide/Self Injury Attempted (Context): None Modifying Factor(s): Alcohol Severity: None Associated Symptoms: denies: Anger, Anxiety Involuntary Hold By: None Recent travel outside of the [place]: No Additional History Per: EMS Past Medical History Reviewed: Historical Data, Nursing Documentation, Vital Signs Vital Signs: Last Vital Signs Temp 98.4 F 03/13/17 19:58 Pulse 93 H 03/13/17 23:31 Resp 19 03/13/17 23:31 BP 121/73 03/13/17 23:31 Pulse Ox 96 03/13/17 23:31 - Medical History PMH: Anxiety, Asthma, Back Problems, Bipolar Disorder, Depression, Gastritis, HTN, Schizophrenia, Chronic Pain (Back Pain) Surgical History: Hernia Repair, Tonsillectomy - [facility] Procedures DETOXIFICATION SERVICES FOR SUBSTANCE ABUSE TREATMENT (12/26/15) Family History: States: No Known Family Hx - Social History Hx Tobacco Use: No Hx Alcohol Use: Yes Hx Substance Use: No - Immunization History Hx Tetanus Toxoid Vaccination: No Hx Influenza Vaccination: No Hx Pneumococcal Vaccination: No Review Of Systems Except As Marked, All Systems Reviewed And Found Negative. Constitutional: Negative for: Fever, Chills Cardiovascular: Negative for: Chest Pain Respiratory: Negative for: Shortness of Breath Gastrointestinal: Negative for: Nausea, Vomiting, Abdominal Pain Musculoskeletal: Negative for: Back Pain Neurological: Negative for: Dizziness Psych: Negative for: Anxiety Physical Exam - Physical Exam Appears: Non-toxic, No Acute Distress, Other (alcohol on breath) Skin: Warm, Dry Head: Normacephalic Oral Mucosa: Moist Neck: Supple Chest: Symmetrical Cardiovascular: Rhythm Regular Respiratory: No Rales, No Rhonchi, No Wheezing Gastrointestinal/Abdominal: Soft, No Tenderness, No Guarding Extremity: Capillary Refill (2<sec. ) Extremity: Bilateral: Normal ROM Neurological/Psych: Oriented x3 Gait: Unsteady ED Course And Treatment O2 Sat by Pulse Oximetry: 97 (RA) Pulse Ox Interpretation: Normal Reevaluation Time: 05:05 Reassessment Condition: Improved Disposition Counseled Patient/Family Regarding: Studies Performed, Diagnosis - Disposition Referrals: [facility] at [facility] [Outside] Disposition Time: 20:30 Condition: FAIR Instructions: Alcohol Intoxication (DC) Forms: [employer] (Latvian) - Clinical Impression Clinical Impression: Alcohol abuse with intoxication - PA / INVESTMENT TRADER / Resident Statement MD/DO has reviewed & agrees with the documentation as recorded. - Scribe Statement The provider has reviewed the documentation as recorded by the Scribjackelny Rabago All medical record entries made by the Augustaibjackelyn were at my direction and personally dictated by me. I have reviewed the chart and agree that the record accurately reflects my personal performance of the history, physical exam, medical decision making, and the department course for this patient. I have also personally directed, reviewed, and agree with the discharge instructions and disposition.
[2017-03-14 05:06] VITALS: O2SAT 97
[2017-03-14 05:45] VITALS: RESP 16
[2017-03-14 06:09] VITALS: BP 122/74; PULSE 84; TEMP 98
== END 2017-03-14 06:09 | disposition home or self-care (01) ==
LOC: C.ER 19:55
DX: F10.120 Alcohol abuse with intoxication, uncomplicated (principal); Y90.9 Presence of alcohol in blood, level not specified

== ENCOUNTER 2017-03-14 17:27 | Emergency (ER) | payer MEDICARE ==
[2017-03-14 17:42] VITALS: BMI 25.0
[2017-03-14 17:44] VITALS: BP 143/84; PULSE 93; RESP 16; TEMP 97.5; O2SAT 96
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
== END 2017-03-14 18:35 | disposition home or self-care (01) ==
LOC: C.ER 17:27
DX: H57.10 Ocular pain, unspecified eye (principal); F10.129 Alcohol abuse with intoxication, unspecified; Y90.9 Presence of alcohol in blood, level not specified

== ENCOUNTER 2017-03-15 20:15 | Emergency (ER) | payer MEDICARE ==
[2017-03-15 20:15] VITALS: BMI 25.0
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
[2017-03-16 07:08] VITALS: BP 138/71; PULSE 88; RESP 20; TEMP 98; O2SAT 96
== END 2017-03-16 05:58 | disposition home or self-care (01) ==
LOC: C.ER 20:15
DX: F10.10 Alcohol abuse, uncomplicated (principal); Y90.9 Presence of alcohol in blood, level not specified; Z59.0 Homelessness

== ENCOUNTER 2017-03-17 21:40 | Emergency (ER) | payer MEDICARE ==
[2017-03-17 21:40] VITALS: BMI 25.0
[2017-03-17 21:48] VITALS: TEMP 97.8
--- NOTE | 2017-03-17 21:55 | C.PDOC ---
History Of Present Illness 71 year old male with a history of alcohol abuse was brought to the ED by EMS with alcohol on breath, seeking a place to stay. Patient has presented to the ED several times for similar complaints. Patient admits to drinking alcohol prior to arrival and has EtOH on breath. Patient denies physical complaints, suicidal ideations, and homicidal ideations. Time Seen by Provider: 03/17/17 21:54 Chief Complaint (Nursing): Substance Abuse History Per: Patient, EMS History/Exam Limitations: no limitations Onset/Duration Of Symptoms: Hrs Current Symptoms Are (Timing): Still Present Suicide/Self Injury Attempted (Context): None Modifying Factor(s): Alcohol Pain Scale Rating Of: 0 Associated Symptoms: denies: Suicidal Thoughts, Suicidal Plan Involuntary Hold By: None Recent travel outside of the [place]: No Additional History Per: Prior Records Past Medical History Reviewed: Historical Data, Nursing Documentation, Vital Signs Vital Signs: Last Vital Signs Temp 97.8 F 03/17/17 21:46 Pulse 85 03/17/17 21:46 Resp 18 03/17/17 21:46 BP 136/96 H 03/17/17 21:46 Pulse Ox 98 03/17/17 22:26 - Medical History PMH: Anxiety, Asthma, Back Problems, Bipolar Disorder, Depression, Gastritis, HTN, Schizophrenia, Chronic Pain (Back Pain) Surgical History: Hernia Repair, [facility] Procedures DETOXIFICATION SERVICES FOR SUBSTANCE ABUSE TREATMENT (12/26/15) Family History: States: Unknown Family Hx - Social History Hx Tobacco Use: No Hx Alcohol Use: Yes Hx Substance Use: No - Immunization History Hx Tetanus Toxoid Vaccination: No Hx Influenza Vaccination: No Hx Pneumococcal Vaccination: No Review Of Systems Constitutional: Negative for: Fever, Chills Cardiovascular: Negative for: Chest Pain, Palpitations Respiratory: Negative for: Cough, Shortness of Breath Gastrointestinal: Negative for: Nausea, Vomiting Psych: Negative for: Suicidal ideation Physical Exam - Physical Exam Appears: Non-toxic, No Acute Distress, Other (EtOH on breath ) Skin: Warm, Dry Head: Atraumatic, Normacephalic, No Tenderness Eye(s): bilateral: Normal Inspection Oral Mucosa: Moist Neck: Supple Chest: Symmetrical, No Deformity Cardiovascular: Rhythm Regular, No Murmur Respiratory: No Rales, No Rhonchi Gastrointestinal/Abdominal: Soft, No Tenderness, No Distention, No Guarding, No Rebound Extremity: Normal ROM, No Tenderness Neurological/Psych: Oriented x3 ED Course And Treatment O2 Sat by Pulse Oximetry: 98 (RA) Pulse Ox Interpretation: Normal Reevaluation Time: 05:13 Reassessment Condition: Improved Disposition Counseled Patient/Family Regarding: Studies Performed, Diagnosis, Need For Followup - Disposition Referrals: [facility] at [facility] [Outside] Disposition: HOME/ ROUTINE Disposition Time: 21:54 Condition: FAIR Instructions: Alcohol Intoxication (DC) Forms: [employer] (Faroese) - Clinical Impression Clinical Impression: Alcohol dependence, Alcohol intoxication - Scribe Statement The provider has reviewed the documentation as recorded by the Scribe Chloe Connelly All medical record entries made by the Scribe were at my direction and personally dictated by me. I have reviewed the chart and agree that the record accurately reflects my personal performance of the history, physical exam, medical decision making, and the department course for this patient. I have also personally directed, reviewed, and agree with the discharge instructions and disposition.
[2017-03-18 07:02] VITALS: RESP 20
[2017-03-18 07:14] VITALS: BP 134/78; PULSE 87; O2SAT 95
== END 2017-03-18 06:00 | disposition home or self-care (01) ==
LOC: C.ER 21:40
DX: F10.229 Alcohol dependence with intoxication, unspecified (principal); Y90.9 Presence of alcohol in blood, level not specified

== ENCOUNTER 2017-03-19 07:59 | Emergency (ER) | payer MEDICARE ==
[2017-03-19 07:59] VITALS: BMI 25.0
[2017-03-19 08:18] VITALS: TEMP 98.2
--- NOTE | 2017-03-19 09:23 | C.PDOC ---
History Of Present Illness 71 y/o male brought to ED via EMS for malingering. Pt is well known to ED staff for multiple past visits for alcohol intoxication. Pt is not intoxicated today. Denies any active physical complaints at this time. Time Seen by Provider: 03/19/17 08:48 Chief Complaint (Nursing): Substance Abuse History Per: Patient History/Exam Limitations: no limitations Onset/Duration Of Symptoms: Gradual Current Symptoms Are (Timing): Still Present Suicide/Self Injury Attempted (Context): None Modifying Factor(s): None Severity: None Pain Scale Rating Of: 0 Associated Symptoms: denies: Suicidal Thoughts, Suicidal Plan Involuntary Hold By: None Recent travel outside of the [place]: No Additional History Per: Patient Past Medical History Reviewed: Historical Data, Nursing Documentation, Vital Signs Vital Signs: Last Vital Signs Temp 98.2 F 03/19/17 09:33 Pulse 100 H 03/19/17 09:33 Resp 18 03/19/17 09:33 BP 157/96 H 03/19/17 09:33 Pulse Ox 96 03/19/17 09:36 - Medical History PMH: Anxiety, Asthma, Back Problems, Bipolar Disorder, Depression, Gastritis, HTN, Schizophrenia, Chronic Pain (Back Pain) Surgical History: Hernia Repair, Tonsillectomy - [facility] Procedures DETOXIFICATION SERVICES FOR SUBSTANCE ABUSE TREATMENT (12/26/15) Family History: States: Unknown Family Hx - Social History Hx Tobacco Use: No Hx Alcohol Use: Yes Hx Substance Use: No - Immunization History Hx Tetanus Toxoid Vaccination: No Hx Influenza Vaccination: No Hx Pneumococcal Vaccination: No Review Of Systems Except As Marked, All Systems Reviewed And Found Negative. Constitutional: Negative for: Fever, Chills Cardiovascular: Negative for: Chest Pain, Palpitations Respiratory: Negative for: Cough, Shortness of Breath Gastrointestinal: Negative for: Nausea, Vomiting, Abdominal Pain Neurological: Negative for: Headache, Dizziness Psych: Negative for: Suicidal ideation Physical Exam - Physical Exam Appears: Non-toxic, No Acute Distress, Unkempt Skin: Normal Color, Warm, Dry Head: Atraumatic, Normacephalic Eye(s): bilateral: Normal Inspection Oral Mucosa: Moist Neck: Normal ROM, Supple Chest: Symmetrical Cardiovascular: Rhythm Regular, No Murmur Respiratory: Normal Breath Sounds, No Rales, No Rhonchi, No Wheezing Gastrointestinal/Abdominal: Soft, No Tenderness Extremity: Normal ROM Neurological/Psych: Oriented x3, Normal Speech ED Course And Treatment O2 Sat by Pulse Oximetry: 96 Pulse Ox Interpretation: Normal Medical Decision Making Medical Decision Making: malingering, not intoxicated stable gait. Disposition Doctor Will See Patient In The: Office Counseled Patient/Family Regarding: Studies Performed, Diagnosis - Disposition Referrals: Alcoholics Anonymous [Outside] [facility] [Outside] [facility] [Outside] Disposition: HOME/ ROUTINE Disposition Time: 09:20 Condition: GOOD Additional Instructions: seek nightly alf placement. You may not stay in the ER overnight without acute medical issues. Forms: General Discharge Instructions, [facility] (Faroese) - Clinical Impression Clinical Impression: Homelessness, Malingering - Scribe Statement The provider has reviewed the documentation as recorded by the Scribjackelyn Leiva All medical record entries made by the Scribe were at my direction and personally dictated by me. I have reviewed the chart and agree that the record accurately reflects my personal performance of the history, physical exam, medical decision making, and the department course for this patient. I have also personally directed, reviewed, and agree with the discharge instructions and disposition.
[2017-03-19 09:33] VITALS: BP 157/96; PULSE 100; RESP 18
[2017-03-19 09:35] VITALS: O2SAT 96
== END 2017-03-19 09:34 | disposition home or self-care (01) ==
LOC: C.ER 07:59
DX: Z76.5 Malingerer [conscious simulation] (principal); Z59.0 Homelessness

== ENCOUNTER 2017-03-21 13:58 | Emergency (ER) | payer MEDICARE ==
[2017-03-21 13:59] VITALS: BMI 25.0
--- NOTE | 2017-03-21 14:21 | C.PDOC ---
History Of Present Illness 71 y/o male, history of etoh abuse, brought in by [employer] for medical clearance for incarceration. Denies any acute complaints on arrival. No further history provided. Time Seen by Provider: 03/21/17 13:59 Chief Complaint (Nursing): Medical Clearance History Per: Patient History/Exam Limitations: no limitations Onset/Duration Of Symptoms: Days Current Symptoms Are (Timing): Still Present Recent travel outside of the [place]: No Past Medical History Reviewed: Historical Data, Nursing Documentation, Vital Signs - Medical History PMH: Anxiety, Asthma, Back Problems, Bipolar Disorder, Depression, Gastritis, HTN, Schizophrenia, Chronic Pain (Back Pain) Surgical History: Hernia Repair, Tonsillectomy - [facility] Procedures DETOXIFICATION SERVICES FOR SUBSTANCE ABUSE TREATMENT (12/26/15) Family History: States: Unknown Family Hx - Social History Hx Tobacco Use: No Hx Alcohol Use: Yes Hx Substance Use: No - Immunization History Hx Tetanus Toxoid Vaccination: No Hx Influenza Vaccination: No Hx Pneumococcal Vaccination: No Review Of Systems Except As Marked, All Systems Reviewed And Found Negative. Constitutional: Negative for: Fever Cardiovascular: Negative for: Chest Pain Respiratory: Negative for: Cough, Shortness of Breath Gastrointestinal: Negative for: Vomiting Skin: Negative for: Rash Physical Exam - Physical Exam Appears: Non-toxic, No Acute Distress, Other (no etoh odor, awake, oriented) Skin: Normal Color, Warm, Dry Head: Atraumatic, Normacephalic Chest: Symmetrical Cardiovascular: Rhythm Regular Respiratory: Normal Breath Sounds, No Rales, No Rhonchi, No Wheezing Gastrointestinal/Abdominal: Soft, No Tenderness Back: Normal Inspection Extremity: Normal ROM, Capillary Refill (< 2 sec.) Neurological/Psych: Oriented x3 ED Course And Treatment Progress Note: Ambulated in the ER. Accuc[place]k taken. [place] given. Will discharge to [facility] police. Disposition Counseled Patient/Family Regarding: Studies Performed, Diagnosis, Need For Followup - Disposition Referrals: [facility] [Outside] Disposition: HOME/ ROUTINE Disposition Time: 14:30 Condition: STABLE Additional Instructions: PATIENT MEDICALLY CLEARED FOR INCARCERATION Forms: [facility] (Spanish), General Discharge Instructions Print Language: FINNISH - POA Present On Arrival: None - Clinical Impression Clinical Impression: Medical clearance for incarceration - Scribe Statement The provider has reviewed the documentation as recorded by the Scribe SM All medical record entries made by the Scribe were at my direction and personally dictated by me. I have reviewed the chart and agree that the record accurately reflects my personal performance of the history, physical exam, medical decision making, and the department course for this patient. I have also personally directed, reviewed, and agree with the discharge instructions and disposition.
[2017-03-21 14:26] VITALS: BP 137/93; PULSE 95; RESP 18; TEMP 97.9; O2SAT 98
== END 2017-03-21 14:55 ==
LOC: C.ER 13:58
DX: Z02.89 Encounter for other administrative examinations (principal); I10 Essential (primary) hypertension

== ENCOUNTER 2017-07-01 11:17 | Emergency (ER) | payer MEDICARE ==
[2017-07-01 11:17] VITALS: BMI 25.0
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
[2017-07-01 15:15] VITALS: BP 114/75; PULSE 102; RESP 20; TEMP 98.2; O2SAT 97
== END 2017-07-01 15:18 | disposition home or self-care (01) ==
LOC: C.ER 11:17
DX: Z59.0 Homelessness (principal); F20.9 Schizophrenia, unspecified; I10 Essential (primary) hypertension

== ENCOUNTER 2017-07-04 11:16 | Emergency (ER) | payer MEDICARE ==
[2017-07-04 11:17] VITALS: BMI 25.0
--- NOTE | 2017-07-04 11:32 | C.PDOC ---
History Of Present Illness 71 year old male is brought to the ED via EMS for intoxication. Patient denies any current complaints at this time. Patient was last seen in the ED 3 days ago with the same presentation. Patient denies fall, injury, trauma, SI/HI, hallucinations. Chief Complaint (Nursing): Substance Abuse History Per: Patient History/Exam Limitations: intoxication Onset/Duration Of Symptoms: Hrs Current Symptoms Are (Timing): Still Present Suicide/Self Injury Attempted (Context): None Modifying Factor(s): Alcohol Associated Symptoms: denies: Depression, Suicidal Thoughts, Suicidal Plan Involuntary Hold By: None Recent travel outside of the [place]: No Additional History Per: Patient Past Medical History Reviewed: Historical Data, Nursing Documentation, Vital Signs Vital Signs: Last Vital Signs Temp 98.2 F 07/04/17 16:13 Pulse 96 H 07/04/17 16:13 Resp 20 07/04/17 17:59 BP 108/68 07/04/17 16:13 Pulse Ox 99 07/04/17 16:13 - Medical History PMH: Anxiety, Asthma, Back Problems, Bipolar Disorder, Depression, Gastritis, HTN, Schizophrenia, Chronic Pain (Back Pain) Surgical History: Hernia Repair, Tonsillectomy - [facility] DETOXIFICATION SERVICES FOR SUBSTANCE ABUSE TREATMENT (12/26/15) Family History: States: Unknown Family Hx - Social History Hx Tobacco Use: No Hx Alcohol Use: Yes Hx Substance Use: No - Immunization History Hx Tetanus Toxoid Vaccination: (unk) Hx Influenza Vaccination: (unk) Hx Pneumococcal Vaccination: (unk) Review Of Systems Constitutional: Negative for: Fever, Chills Cardiovascular: Negative for: Chest Pain Respiratory: Negative for: Shortness of Breath Gastrointestinal: Negative for: Nausea, Vomiting, Abdominal Pain Skin: Negative for: Rash Physical Exam - Physical Exam Appears: Non-toxic, No Acute Distress Skin: Normal Color, Warm, Dry Head: Atraumatic, Normacephalic Eye(s): bilateral: Normal Inspection Nose: No Discharge Oral Mucosa: Moist Neck: Normal ROM, Supple Chest: Symmetrical Cardiovascular: Rhythm Regular, No Murmur Respiratory: Normal Breath Sounds, No Rales, No Rhonchi, No Wheezing Gastrointestinal/Abdominal: Soft, No Tenderness Extremity: Normal ROM, No Tenderness, No Swelling Neurological/Psych: Oriented x3 ED Course And Treatment O2 Sat by Pulse Oximetry: 96 (On RA) Pulse Ox Interpretation: Normal Progress Note: Pt ambulated to the BR under his own power.Is clinically sober Medical Decision Making Medical Decision Making: Impression: alcohol intoxication Plan: * Observe and frequent neurological checks * D/C when sober Disposition - Disposition Referrals: Alcoholics Anonymous [Outside] Disposition: HOME/ ROUTINE Disposition Time: 18:58 Condition: FAIR Instructions: Alcohol Abuse and Alcoholism (DC) Forms: [facility] (Singaporean) Print Language: IRANIAN - Clinical Impression Clinical Impression: Intoxication - Scribe Statement The provider has reviewed the documentation as recorded by the Scribe Eulogio Sanchez All medical record entries made by the Scribe were at my direction and personally dictated by me. I have reviewed the chart and agree that the record accurately reflects my personal performance of the history, physical exam, medical decision making, and the department course for this patient. I have also personally directed, reviewed, and agree with the discharge instructions and disposition.
[2017-07-04 16:14] VITALS: BP 108/68; PULSE 96; TEMP 98.2
[2017-07-04 18:00] VITALS: RESP 20
[2017-07-04 19:00] VITALS: O2SAT 96
== END 2017-07-04 18:01 | disposition home or self-care (01) ==
LOC: C.ER 11:16
DX: F10.129 Alcohol abuse with intoxication, unspecified (principal); Y90.9 Presence of alcohol in blood, level not specified

== ENCOUNTER 2017-07-04 22:56 | Emergency (ER) | payer MEDICARE ==
[2017-07-04 22:58] VITALS: BMI 25.0
--- NOTE | 2017-07-05 02:21 | C.PDOC ---
History Of Present Illness 71 year old male presents to the ER via EMS for public intoxication. Denies any complaints at this time. Time Seen by Provider: 07/04/17 23:18 Chief Complaint (Nursing): Substance Abuse History Per: Patient History/Exam Limitations: no limitations Onset/Duration Of Symptoms: Hrs Current Symptoms Are (Timing): Still Present Suicide/Self Injury Attempted (Context): None Modifying Factor(s): Alcohol Associated Symptoms: denies: Depression, Suicidal Thoughts Involuntary Hold By: None Recent travel outside of the [place]: No Past Medical History Reviewed: Historical Data, Nursing Documentation, Vital Signs Vital Signs: Last Vital Signs Temp 98.2 F 07/05/17 02:50 Pulse 93 H 07/05/17 02:50 Resp 18 07/05/17 02:50 BP 120/74 07/05/17 02:50 Pulse Ox 95 07/05/17 02:50 - Medical History PMH: Anxiety, Asthma, Back Problems, Bipolar Disorder, Depression, Gastritis, HTN, Schizophrenia, Chronic Pain (Back Pain) Surgical History: Hernia Repair, Tonsillectomy - [facility] DETOXIFICATION SERVICES FOR SUBSTANCE ABUSE TREATMENT (12/26/15) Family History: States: Unknown Family Hx - Social History Hx Tobacco Use: No Hx Alcohol Use: Yes Hx Substance Use: No - Immunization History Hx Tetanus Toxoid Vaccination: (unk) Hx Influenza Vaccination: (unk) Hx Pneumococcal Vaccination: (unk) Review Of Systems Constitutional: Negative for: Fever, Chills Cardiovascular: Negative for: Chest Pain, Palpitations Respiratory: Negative for: Shortness of Breath Gastrointestinal: Negative for: Nausea, Vomiting Physical Exam - Physical Exam Appears: Non-toxic, No Acute Distress, Other (ETOH on breath, no injuries) Skin: Normal Color, Warm, Dry Head: Atraumatic, Normacephalic Eye(s): bilateral: Normal Inspection Oral Mucosa: Moist Chest: Symmetrical, No Tenderness Cardiovascular: Rhythm Regular Respiratory: Normal Breath Sounds, No Rales, No Rhonchi, No Wheezing Gastrointestinal/Abdominal: Soft, No Tenderness Neurological/Psych: Oriented x3, Normal Speech ED Course And Treatment O2 Sat by Pulse Oximetry: 95 (Room air) Pulse Ox Interpretation: Normal Reevaluation Time: 05:46 Reassessment Condition: Improved Disposition Doctor Will See Patient In The: Office Counseled Patient/Family Regarding: Studies Performed, Diagnosis - Disposition Disposition: HOME/ ROUTINE Disposition Time: 05:46 Condition: GOOD Forms: [facility] (Kiswahili) - Clinical Impression Clinical Impression: Alcohol abuse with uncomplicated intoxication, Homelessness - Scribe Statement The provider has reviewed the documentation as recorded by the Scribjackelyn Huang All medical record entries made by the Augustaibe were at my direction and personally dictated by me. I have reviewed the chart and agree that the record accurately reflects my personal performance of the history, physical exam, medical decision making, and the department course for this patient. I have also personally directed, reviewed, and agree with the discharge instructions and disposition.
[2017-07-05 07:04] VITALS: BP 131/78; PULSE 88; RESP 20; TEMP 97.9; O2SAT 97
== END 2017-07-05 06:49 | disposition home or self-care (01) ==
LOC: C.ER 22:56
DX: F10.129 Alcohol abuse with intoxication, unspecified (principal); Y90.9 Presence of alcohol in blood, level not specified; Z59.0 Homelessness

== ENCOUNTER 2017-07-08 12:26 | Emergency (ER) | payer MEDICARE ==
[2017-07-08 12:27] VITALS: BMI 25.0
[2017-07-08 13:08] VITALS: BP 134/79; PULSE 86; RESP 18; TEMP 98; O2SAT 96
--- NOTE | 2017-07-08 15:23 | C.PDOC ---
History Of Present Illness 71 year old male is brought to the ED by EMS after he was found malingering around [facility]. Patient is familar to the ED and has had many prior presentations with similar complaint. Patient admits to drinking earlier today and has no physical complaints at this time. Time Seen by Provider: 07/08/17 15:16 Chief Complaint (Nursing): Substance Abuse History Per: Patient, EMS History/Exam Limitations: intoxication Onset/Duration Of Symptoms: Hrs Current Symptoms Are (Timing): Gone Suicide/Self Injury Attempted (Context): None Modifying Factor(s): Alcohol Associated Symptoms: denies: Suicidal Thoughts, Suicidal Plan Involuntary Hold By: None Recent travel outside of the [place]: No Additional History Per: Patient Past Medical History Reviewed: Historical Data, Nursing Documentation, Vital Signs Vital Signs: Last Vital Signs Temp 98 F 07/08/17 13:05 Pulse 86 07/08/17 13:05 Resp 18 07/08/17 13:05 BP 134/79 07/08/17 13:05 Pulse Ox 96 07/08/17 15:23 - Medical History PMH: Anxiety, Asthma, Back Problems, Bipolar Disorder, Depression, Gastritis, HTN, Schizophrenia, Chronic Pain (Back Pain) Surgical History: Hernia Repair, Tonsillectomy - [facility] Procedures DETOXIFICATION SERVICES FOR SUBSTANCE ABUSE TREATMENT (12/26/15) Family History: States: Unknown Family Hx - Social History Hx Tobacco Use: No Hx Alcohol Use: Yes Hx Substance Use: No - Immunization History Hx Tetanus Toxoid Vaccination: (unk) Hx Influenza Vaccination: (unk) Hx Pneumococcal Vaccination: (unk) Review Of Systems Psych: Positive for: Other (EtOH intoxication ). Negative for: Suicidal ideation Physical Exam - Physical Exam Appears: Non-toxic, No Acute Distress, Other (foul-smelling, disheveled ) Skin: Normal Color, Warm, Dry Head: Atraumatic, Normacephalic Eye(s): bilateral: Normal Inspection Oral Mucosa: Moist, Other (alcohol on breath ) Chest: Symmetrical, No Deformity, No Tenderness Cardiovascular: Rhythm Regular, No Murmur Respiratory: Normal Breath Sounds, No Rales, No Rhonchi, No Wheezing Extremity: Normal ROM, Capillary Refill (less than 2 seconds ) Neurological/Psych: Other (awake, alert and arousable to touch and verbal stimuli ) ED Course And Treatment O2 Sat by Pulse Oximetry: 96 (on RA ) Pulse Ox Interpretation: Normal Medical Decision Making Medical Decision Making: persistent homeless, alcohol abuse baseline exam not intoxicated, stable gait ok for d/c to custodial (winter storm coming tonight) Disposition Doctor Will See Patient In The: Office Counseled Patient/Family Regarding: Studies Performed, Diagnosis - Disposition Referrals: Alcoholics Anonymous [Outside] [facility] [Outside] [facility]] [facility]] [email or web address] [Outside] Disposition: HOME/ ROUTINE Disposition Time: 15:22 Condition: GOOD Additional Instructions: seek nightly custodial placement stop alcohol abuse seek resources as outlined below. Instructions: Effects of Alcohol on Your Health Forms: [facility] (Turkish) - Clinical Impression Clinical Impression: Homelessness, Alcohol abuse - Scribe Statement The provider has reviewed the documentation as recorded by the Scribe (Chrissy Leiva) Provider Attestation: All medical record entries made by the Scribe were at my direction and personally dictated by me. I have reviewed the chart and agree that the record accurately reflects my personal performance of the history, physical exam, medical decision making, and the department course for this patient. I have also personally directed, reviewed, and agree with the discharge instructions and disposition.
== END 2017-07-08 15:45 | disposition home or self-care (01) ==
LOC: C.ER 12:26
DX: F10.10 Alcohol abuse, uncomplicated (principal); Z59.0 Homelessness; Y90.0 Blood alcohol level of less than 20 mg/100 ml

== ENCOUNTER 2017-07-10 23:35 | Emergency (ER) | payer MEDICARE ==
[2017-07-10 23:35] VITALS: BMI 25.0
[2017-07-10 23:41] VITALS: RESP 16; TEMP 97.6
--- NOTE | 2017-07-11 00:39 | C.PDOC ---
History Of Present Illness 71yo male, well known to ER presents today in his usual state of inebriation. Patient has no medical complaints currently. Time Seen by Provider: 07/11/17 00:13 Chief Complaint (Nursing): Substance Abuse History Per: EMS Onset/Duration Of Symptoms: Persistent Modifying Factor(s): Alcohol Past Medical History Reviewed: Historical Data, Nursing Documentation, Vital Signs Vital Signs: Last Vital Signs Temp 97.6 F 07/10/17 23:39 Pulse 88 07/11/17 02:33 Resp 16 07/11/17 02:33 BP 124/84 07/11/17 02:33 Pulse Ox 97 07/11/17 02:33 - Medical History PMH: Anxiety, Asthma, Back Problems, Bipolar Disorder, Depression, Gastritis, HTN, Schizophrenia, Chronic Pain (Back Pain) Surgical History: Hernia Repair, T[facility]il[facility] - [facility] DETOXIFICATION SERVICES FOR SUBSTANCE ABUSE TREATMENT (12/26/15) Family History: States: Unknown Family Hx - Social History Hx Tobacco Use: No Hx Alcohol Use: Yes Hx Substance Use: No - Immunization History Hx Tetanus Toxoid Vaccination: (unk) Hx Influenza Vaccination: (unk) Hx Pneumococcal Vaccination: (unk) Review Of Systems Except As Marked, All Systems Reviewed And Found Negative. Constitutional: Negative for: Fever, Chills Cardiovascular: Negative for: Chest Pain Respiratory: Negative for: Shortness of Breath Gastrointestinal: Negative for: Abdominal Pain Psych: Negative for: Suicidal ideation Physical Exam - Physical Exam Appears: No Acute Distress, Other (unkempt, foul smelling) Head: Atraumatic, Normacephalic, Other (no signs of trauma) Eye(s): bilateral: PERRL, EOMI Oral Mucosa: Moist, Other (alcohol on breath) Neck: Normal ROM, Supple Chest: Symmetrical Cardiovascular: Rhythm Regular Respiratory: Normal Breath Sounds, No Wheezing Gastrointestinal/Abdominal: Soft, No Tenderness Extremity: No Deformity Pulses: Left Dorsalis Pedis: Normal, Right Dorsalis Pedis: Normal Neurological/Psych: Other (somnolent but arousable to verbal stimuli) ED Course And Treatment O2 Sat by Pulse Oximetry: 96 (RA) Pulse Ox Interpretation: Normal Medical Decision Making Medical Decision Making: Impression: Acute alcohol intoxication Plan: -- Frequent neuro checks -- Discharge when sober Disposition - Disposition Referrals: Alcoholics Anonymous [Outside] Disposition: HOME/ ROUTINE Disposition Time: 06:01 Condition: FAIR Instructions: Alcohol Use - When Is Drinking a Problem? Forms: [facility] (Irish), [facility] (Northern Irish) Print Language: SAUDI ARABIAN - Clinical Impression Clinical Impression: Alcohol abuse, Homelessness - Scribe Statement The provider has reviewed the documentation as recorded by the Scribe (Sirena Ramsey) Provider Attestation: All medical record entries made by the Scribe were at my direction and personally dictated by me. I have reviewed the chart and agree that the record accurately reflects my personal performance of the history, physical exam, medical decision making, and the department course for this patient. I have also personally directed, reviewed, and agree with the discharge instructions and disposition.
[2017-07-11 02:34] VITALS: BP 124/84; PULSE 88
[2017-07-11 06:02] VITALS: O2SAT 96
== END 2017-07-11 05:57 | disposition home or self-care (01) ==
LOC: C.ER 23:35
DX: F10.129 Alcohol abuse with intoxication, unspecified (principal); Y90.9 Presence of alcohol in blood, level not specified; Z59.0 Homelessness

== ENCOUNTER → 2017-07-11 | Emergency (ER) | payer MEDICARE ==
[2017-07-11 16:46] VITALS: BMI 25.0
[2017-07-11 17:12] VITALS: RESP 18
--- NOTE | 2017-07-11 17:41 | C.PDOC ---
History Of Present Illness <Jw Sauceda - Last Filed: 07/12/17 00:28> <Pao Dale - Last Filed: 07/12/17 07:20> 71 year old male is brought to the ED by EMS for evaluation after he was found around [facility]. Patient admits to drinking earlier today. Patient is familiar to this ED and has had many similar presentations. Patient has no physical complaints at this time. (Jw Sauceda) History Per: Patient, EMS History/Exam Limitations: intoxication Onset/Duration Of Symptoms: Hrs Current Symptoms Are (Timing): Still Present Suicide/Self Injury Attempted (Context): None Modifying Factor(s): Alcohol Associated Symptoms: denies: Suicidal Thoughts, Suicidal Plan Involuntary Hold By: None Recent travel outside of the [place]: No Additional History Per: Patient <Jw Sauceda - Last Filed: 07/12/17 00:28> <Pao Dale - Last Filed: 07/12/17 07:20> Time Seen by Provider: 07/11/17 17:28 Chief Complaint (Nursing): Substance Abuse Past Medical History Reviewed: Historical Data, Nursing Documentation, Vital Signs - Medical History PMH: Anxiety, Asthma, Back Problems, Bipolar Disorder, Depression, Gastritis, HTN, Schizophrenia, Chronic Pain (Back Pain) Surgical History: Hernia Repair, Tonsillectomy Family History: States: Unknown Family Hx - Social History Hx Tobacco Use: No Hx Alcohol Use: Yes Hx Substance Use: No - Immunization History Hx Tetanus Toxoid Vaccination: (unk) Hx Influenza Vaccination: (unk) Hx Pneumococcal Vaccination: (unk) <Jw Sauceda - Last Filed: 07/12/17 00:28> Vital Signs: Last Vital Signs Temp 98.1 F 07/11/17 20:47 Pulse 115 H 07/11/17 20:47 Resp 18 07/11/17 20:47 BP 125/69 07/11/17 20:47 Pulse Ox 95 07/12/17 00:29 - [facility] Procedures DETOXIFICATION SERVICES FOR SUBSTANCE ABUSE TREATMENT (12/26/15) Review Of Systems Psych: Positive for: Other (EtOH intoxication ) <Jw Sauceda - Last Filed: 07/12/17 00:28> Physical Exam - Physical Exam Appears: Non-toxic, No Acute Distress, Other (visibly intoxicated ) Skin: Normal Color, Warm, Dry Head: Atraumatic, Normacephalic Eye(s): bilateral: Normal Inspection Oral Mucosa: Moist, Other (alcohol on breath ) Neck: Supple Chest: Symmetrical, No Deformity, No Tenderness Cardiovascular: Rhythm Regular, No Murmur Respiratory: Normal Breath Sounds, No Rales, No Rhonchi, No Wheezing Gastrointestinal/Abdominal: Soft, No Tenderness, No Guarding, No Rebound Extremity: Normal ROM, Capillary Refill (less than 2 seconds ) Neurological/Psych: Other (arousable to touch and verbal stimuli ) <Jw Sauceda - Last Filed: 07/12/17 00:28> ED Course And Treatment O2 Sat by Pulse Oximetry: 95 (on RA) Pulse Ox Interpretation: Normal <Jw Sauceda - Last Filed: 07/12/17 00:28> Medical Decision Making <Jw Sauceda - Last Filed: 07/12/17 00:28> <Pao Dale - Last Filed: 07/12/17 07:20> Medical Decision Makin:52 - Patient is sleepy with no acute distress. 100: pt endorsed to retail shift leader pending sobriety reassessment. (Jw Sauceda) Disposition <Jw Sauceda - Last Filed: 07/12/17 00:28> - Disposition Disposition Time: 07:20 <Pao Dale - Last Filed: 07/12/17 07:20> - Disposition Disposition: ELOPEMENT - ER ONLY Condition: FAIR Forms: [facility] (Azeri) - Clinical Impression Clinical Impression: Alcohol abuse with intoxication - Scribe Statement The provider has reviewed the documentation as recorded by the Scribe (Chrissy Leiva) <Jw Sauceda - Last Filed: 07/12/17 00:28> <Pao Dale - Last Filed: 07/12/17 07:20> - Scribe Statement Provider Attestation: All medical record entries made by the Scribe were at my direction and personally dictated by me. I have reviewed the chart and agree that the record accurately reflects my personal performance of the history, physical exam, medical decision making, and the department course for this patient. I have also personally directed, reviewed, and agree with the discharge instructions and disposition. (Jw Sauceda)
[2017-07-11 20:49] VITALS: BP 125/69; PULSE 115; TEMP 98.1
[2017-07-11 23:53] VITALS: O2SAT 95
== END | disposition left against medical advice (07) ==
LOC: C.ER 16:46
DX: F10.129 Alcohol abuse with intoxication, unspecified (principal); I10 Essential (primary) hypertension; F20.9 Schizophrenia, unspecified

== ENCOUNTER 2017-07-12 11:08 | Emergency (ER) | payer MEDICARE ==
[2017-07-12 11:19] VITALS: BP 108/63; PULSE 89; RESP 14; TEMP 97.7; O2SAT 98
[2017-07-12 11:22] VITALS: BMI 29.6
--- NOTE | 2017-07-12 13:34 | C.PDOC ---
History Of Present Illness Patient BIBA for evaluation of alcohol intoxication. Patient admits to drinking alcohol today, has been seen multiple times in ED for same. He denies falls/injuries. Time Seen by Provider: 07/12/17 11:10 Chief Complaint (Nursing): Substance Abuse History Per: Patient, EMS History/Exam Limitations: intoxication Onset/Duration Of Symptoms: Unknown Modifying Factor(s): Alcohol Severity: Moderate Past Medical History Reviewed: Historical Data, Nursing Documentation, Vital Signs Vital Signs: Last Vital Signs Temp 97.7 F 07/12/17 11:13 Pulse 89 07/12/17 11:13 Resp 14 07/12/17 11:13 BP 108/63 07/12/17 11:13 Pulse Ox 98 07/12/17 13:39 - Medical History PMH: Anxiety, Asthma, Back Problems, Bipolar Disorder, Depression, Gastritis, HTN, Schizophrenia, Chronic Pain (Back Pain) Surgical History: Hernia Repair, Tonsillectomy - [facility] Procedures DETOXIFICATION SERVICES FOR SUBSTANCE ABUSE TREATMENT (12/26/15) Family History: States: No Known Family Hx - Social History Hx Tobacco Use: No Hx Alcohol Use: Yes Hx Substance Use: No - Immunization History Hx Tetanus Toxoid Vaccination: (unk) Hx Influenza Vaccination: (unk) Hx Pneumococcal Vaccination: (unk) Review Of Systems Except As Marked, All Systems Reviewed And Found Negative. Cardiovascular: Negative for: Chest Pain Respiratory: Negative for: Shortness of Breath Gastrointestinal: Negative for: Abdominal Pain Neurological: Negative for: Headache, Dizziness Psych: Positive for: Other (alcohol intoxication) Physical Exam - Physical Exam Appears: Non-toxic, No Acute Distress, Unkempt, Other (foul smelling, appears intoxicated ) Head: Atraumatic, Normacephalic Cardiovascular: Rhythm Regular Respiratory: Normal Breath Sounds, No Rales, No Rhonchi, No Wheezing Extremity: Normal ROM Extremity: Bilateral: Atraumatic, Normal Color And Temperature, Normal ROM Neurological/Psych: Other (intoxicated, awake & alert) ED Course And Treatment O2 Sat by Pulse Oximetry: 98 (RA) Pulse Ox Interpretation: Normal Progress Note: Accucheck ordered and reviewed. Reevaluation Time: 13:40 Reassessment Condition: Improved (On reassessment, patient is AAOx3, ambulating normally in ED. Patient clinically sober at this time, will discharge.) Disposition Counseled Patient/Family Regarding: Studies Performed, Diagnosis, Need For Followup - Disposition Referrals: [facility] [Outside] Disposition: HOME/ ROUTINE Disposition Time: 13:40 Condition: STABLE Instructions: Alcohol Abuse and Alcoholism (DC) Forms: [facility] (Dominican) Print Language: KAZAKH - Clinical Impression Clinical Impression: Alcohol intoxication
== END 2017-07-12 13:42 | disposition home or self-care (01) ==
LOC: C.ER 11:08
DX: F10.129 Alcohol abuse with intoxication, unspecified (principal); Y90.9 Presence of alcohol in blood, level not specified

== ENCOUNTER 2017-07-13 16:55 | Emergency (ER) | payer MEDICARE ==
[2017-07-13 16:55] VITALS: BMI 29.6
[2017-07-13 17:26] VITALS: BP 110/70; PULSE 109; RESP 17; TEMP 98.4; O2SAT 96
--- NOTE | 2017-07-13 17:31 | C.PDOC ---
Time Seen by Provider: 07/13/17 17:10 Chief Complaint (Nursing): Medical Clearance Past Medical History Vital Signs: Last Vital Signs Temp 98.4 F 07/13/17 17:22 Pulse 109 H 07/13/17 17:22 Resp 17 07/13/17 17:22 BP 110/70 07/13/17 17:22 Pulse Ox 96 07/13/17 17:22 - Medical History PMH: Anxiety, Asthma, Back Problems, Bipolar Disorder, Depression, Gastritis, HTN, Schizophrenia, Chronic Pain (Back Pain) Surgical History: Hernia Repair, Tonsillectomy - [facility] Procedures DETOXIFICATION SERVICES FOR SUBSTANCE ABUSE TREATMENT (12/26/15) Family History: States: Unknown Family Hx - Social History Hx Tobacco Use: No Hx Alcohol Use: Yes Hx Substance Use: No - Immunization History Hx Tetanus Toxoid Vaccination: (unk) Hx Influenza Vaccination: (unk) Hx Pneumococcal Vaccination: (unk) ED Course And Treatment O2 Sat by Pulse Oximetry: 96 Disposition - Disposition Disposition: HOME/ ROUTINE Disposition Time: 17:30 Condition: STABLE Instructions: Alcohol Abuse and Alcoholism (DC) - Clinical Impression Clinical Impression: Alcoholism /alcohol abuse
--- NOTE | 2017-07-13 17:33 | C.PDOC ---
History Of Present Illness Patient is a 71 y/o male who presents to the ED BIBA s/p falling. Per EMS, patient approached EMS claiming he had a fall and asked for transportation to the ED. On arrival, patient denies having fall. Patient is mildly intoxicated. No physical complaints at this time. Time Seen by Provider: 07/13/17 17:10 Chief Complaint (Nursing): Medical Clearance History Per: Patient History/Exam Limitations: no limitations Current Symptoms Are (Timing): Gone Recent travel outside of the [place]: No Past Medical History Reviewed: Historical Data, Nursing Documentation, Vital Signs Vital Signs: Last Vital Signs Temp 98.4 F 07/13/17 17:22 Pulse 109 H 07/13/17 17:22 Resp 17 07/13/17 17:22 BP 110/70 07/13/17 17:22 Pulse Ox 96 07/13/17 17:40 - Medical History PMH: Anxiety, Asthma, Back Problems, Bipolar Disorder, Depression, Gastritis, HTN, Schizophrenia, Chronic Pain (Back Pain) Surgical History: Hernia Repair, Tonsillectomy - [facility] Procedures DETOXIFICATION SERVICES FOR SUBSTANCE ABUSE TREATMENT (12/26/15) Family History: States: No Known Family Hx - Social History Hx Tobacco Use: No Hx Alcohol Use: Yes Hx Substance Use: No - Immunization History Hx Tetanus Toxoid Vaccination: (unk) Hx Influenza Vaccination: (unk) Hx Pneumococcal Vaccination: (unk) Review Of Systems Neurological: Positive for: Other (mild intoxication) Physical Exam - Physical Exam Appears: Well, Non-toxic, No Acute Distress, Other (AAOx3, responsive) Skin: Normal Color, Warm, Dry Head: Atraumatic, Normacephalic Eye(s): bilateral: Normal Inspection, EOMI Oral Mucosa: Moist Chest: Symmetrical Cardiovascular: Rhythm Regular, No Murmur Respiratory: Normal Breath Sounds, No Rales, No Rhonchi, No Wheezing Gastrointestinal/Abdominal: Soft, No Tenderness Gait: Steady (ambulatory with wide-based gait) ED Course And Treatment O2 Sat by Pulse Oximetry: 96 Progress Note: Patient is resting comfortably and stable for discharge. Disposition - Disposition Disposition: HOME/ ROUTINE Disposition Time: 17:30 Condition: STABLE Instructions: Alcohol Abuse and Alcoholism (DC) Forms: [employer] (Bengali) - Clinical Impression Clinical Impression: Alcoholism /alcohol abuse - Scribe Statement The provider has reviewed the documentation as recorded by the Scribe Ly Rexford All medical record entries made by the Omar were at my direction and personally dictated by me. I have reviewed the chart and agree that the record accurately reflects my personal performance of the history, physical exam, medical decision making, and the department course for this patient. I have also personally directed, reviewed, and agree with the discharge instructions and disposition.
== END 2017-07-13 17:46 | disposition home or self-care (01) ==
LOC: C.ER 16:55
DX: F10.20 Alcohol dependence, uncomplicated (principal); I10 Essential (primary) hypertension; F20.9 Schizophrenia, unspecified

== ENCOUNTER 2017-07-14 17:44 | Emergency (ER) | payer MEDICARE ==
[2017-07-14 17:45] VITALS: BMI 29.6
--- NOTE | 2017-07-14 19:35 | C.PDOC ---
History Of Present Illness 71 year old male homeless alcoholic who is a frequent visitor presents to the ER with acute ETOH intoxication. Patient admits to ETOH consumption in the recent past. Patient has no acute complaints. Chief Complaint (Nursing): Substance Abuse History Per: Patient History/Exam Limitations: no limitations Onset/Duration Of Symptoms: Hrs Current Symptoms Are (Timing): Still Present Suicide/Self Injury Attempted (Context): None Modifying Factor(s): Alcohol Associated Symptoms: denies: Depression, Suicidal Thoughts Involuntary Hold By: None Recent travel outside of the [place]: No Past Medical History Reviewed: Historical Data, Nursing Documentation, Vital Signs Vital Signs: Last Vital Signs Temp 97.8 F 07/15/17 05:05 Pulse 86 07/15/17 05:05 Resp 18 07/15/17 05:05 BP 134/88 07/15/17 05:05 Pulse Ox 100 07/15/17 05:05 - Medical History PMH: Anxiety, Asthma, Back Problems, Bipolar Disorder, Depression, Gastritis, HTN, Schizophrenia, Chronic Pain (Back Pain) Surgical History: Hernia Repair, Tonsillectomy - [facility] Procedures DETOXIFICATION SERVICES FOR SUBSTANCE ABUSE TREATMENT (12/26/15) Family History: States: Unknown Family Hx - Social History Hx Tobacco Use: No Hx Alcohol Use: Yes Hx Substance Use: No - Immunization History Hx Tetanus Toxoid Vaccination: (unk) Hx Influenza Vaccination: (unk) Hx Pneumococcal Vaccination: (unk) Review Of Systems Constitutional: Positive for: Other (ETOH intoxication). Negative for: Fever, Chills Cardiovascular: Negative for: Chest Pain, Palpitations Respiratory: Negative for: Cough, Shortness of Breath Gastrointestinal: Negative for: Nausea, Vomiting, Abdominal Pain Physical Exam - Physical Exam Appears: Non-toxic, Other (Somnolent but easily arousable to verbal stimuli, no obvious evidence of head trauma, cooperative for exam) Skin: Normal Color, Warm, Dry Head: Atraumatic, Normacephalic Eye(s): bilateral: Normal Inspection Oral Mucosa: Moist Chest: Symmetrical, No Tenderness Cardiovascular: Rhythm Regular Respiratory: Normal Breath Sounds, No Rales, No Rhonchi, No Wheezing Gastrointestinal/Abdominal: Soft, No Tenderness Extremity: Other (Moves all extremites, no obvious deformities) Neurological/Psych: Oriented x3, Normal Speech ED Course And Treatment O2 Sat by Pulse Oximetry: 96 (Room air) Pulse Ox Interpretation: Normal Medical Decision Making Medical Decision Making: Impression is ETOH intoxication, will do frequent neuro checks and will discharge when clinically sober. Disposition - Disposition Disposition: HOME/ ROUTINE Disposition Time: 06:30 Condition: GOOD Forms: [facility] (Yoruba) - Clinical Impression Clinical Impression: Alcohol abuse with intoxication - Scribe Statement The provider has reviewed the documentation as recorded by the Scribe Chalino Huang All medical record entries made by the Scribe were at my direction and personally dictated by me. I have reviewed the chart and agree that the record accurately reflects my personal performance of the history, physical exam, medical decision making, and the department course for this patient. I have also personally directed, reviewed, and agree with the discharge instructions and disposition.
[2017-07-15 01:41] VITALS: RESP 18
[2017-07-15 05:06] VITALS: BP 134/88; PULSE 86; TEMP 97.8
[2017-07-15 06:31] VITALS: O2SAT 96
== END 2017-07-15 05:57 | disposition home or self-care (01) ==
LOC: C.ER 17:44
DX: F10.129 Alcohol abuse with intoxication, unspecified (principal); Y90.9 Presence of alcohol in blood, level not specified

== ENCOUNTER 2017-07-19 01:46 | Emergency (ER) | payer MEDICARE ==
[2017-07-19 01:47] VITALS: BMI 29.6
[2017-07-19 05:59] VITALS: BP 148/78; PULSE 84; RESP 20; TEMP 97.9; O2SAT 98
--- NOTE | 2017-07-19 06:15 | C.PDOC ---
History Of Present Illness 71 years old male brought to ED for public [place] Denies any physical complaints. Chief Complaint (Nursing): Substance Abuse History Per: Patient History/Exam Limitations: no limitations Onset/Duration Of Symptoms: Hrs Current Symptoms Are (Timing): Still Present Suicide/Self Injury Attempted (Context): None Modifying Factor(s): Alcohol Associated Symptoms: denies: Suicidal Thoughts, Suicidal Plan Involuntary Hold By: None Recent travel outside of the [place]: No Past Medical History Reviewed: Historical Data, Nursing Documentation, Vital Signs Vital Signs: Last Vital Signs Temp 97.9 F 07/19/17 05:55 Pulse 84 07/19/17 05:55 Resp 20 07/19/17 05:55 BP 148/78 07/19/17 05:55 Pulse Ox 98 07/19/17 06:17 - Medical History PMH: Anxiety, Asthma, Back Problems, Bipolar Disorder, Depression, Gastritis, HTN, Schizophrenia, Chronic Pain (Back Pain) Surgical History: Hernia Repair, Tonsillectomy - [facility] Procedures DETOXIFICATION SERVICES FOR SUBSTANCE ABUSE TREATMENT (12/26/15) Family History: States: Unknown Family Hx - Social History Hx Tobacco Use: No Hx Alcohol Use: Yes Hx Substance Use: No - Immunization History Hx Tetanus Toxoid Vaccination: (unk) Hx Influenza Vaccination: (unk) Hx Pneumococcal Vaccination: (unk) Review Of Systems Constitutional: Negative for: Fever, Chills Cardiovascular: Negative for: Chest Pain Gastrointestinal: Negative for: Nausea, Vomiting, Abdominal Pain, Diarrhea Neurological: Negative for: Weakness, Numbness Physical Exam - Physical Exam Appears: Well, Non-toxic, No Acute Distress Skin: Normal Color, Warm, Dry Head: Atraumatic, Normacephalic Eye(s): bilateral: Normal Inspection, PERRL, EOMI Nose: Normal Oral Mucosa: Moist Neck: Supple Chest: Symmetrical, No Tenderness Cardiovascular: Rhythm Regular, No Murmur Respiratory: Normal Breath Sounds, No Decreased Breath Sounds, No Rales, No Rhonchi, No Wheezing Gastrointestinal/Abdominal: Soft, No Tenderness, No Distention, No Guarding, No Rebound Extremity: Normal ROM, No Tenderness, No Deformity, No Swelling Extremity: Bilateral: Normal Color And Temperature, Normal ROM Neurological/Psych: Oriented x3, Normal Speech, Normal Cognition ED Course And Treatment O2 Sat by Pulse Oximetry: 98 (RA) Pulse Ox Interpretation: Normal Medical Decision Making Medical Decision Makin:55AM: - Patient ambulatory - Sober prior to discharge Disposition - Disposition Disposition: HOME/ ROUTINE Disposition Time: 06:38 Condition: GOOD Forms: [facility] (Indonesian) - Clinical Impression Clinical Impression: Homelessness, Intoxication, Alcohol abuse, Alcohol intoxication Clinical Impression: (Ruled Out): Body lice infestation - Scribe Statement The provider has reviewed the documentation as recorded by the Augustaibjackelyn White All medical record entries made by the Augustaibjackelyn were at my direction and personally dictated by me. I have reviewed the chart and agree that the record accurately reflects my personal performance of the history, physical exam, medical decision making, and the department course for this patient. I have also personally directed, reviewed, and agree with the discharge instructions and disposition.
== END 2017-07-19 05:59 | disposition home or self-care (01) ==
LOC: C.ER 01:46
DX: F10.129 Alcohol abuse with intoxication, unspecified (principal); Z59.0 Homelessness

== ENCOUNTER 2017-07-19 18:21 | Emergency (ER) | payer MEDICARE ==
[2017-07-19 18:22] VITALS: BMI 29.6
[2017-07-19 18:30] VITALS: TEMP 98.3
--- NOTE | 2017-07-19 19:05 | C.PDOC ---
History Of Present Illness 71 year old male with multiple prior visits to the ED is brought by BLS after being found in the street intoxicated. Patient admits to drinking alcohol today. Patient denies any other complaints, SI/HI, hallucinations. Time Seen by Provider: 07/19/17 19:04 Chief Complaint (Nursing): Substance Abuse History Per: Patient, EMS History/Exam Limitations: intoxication Onset/Duration Of Symptoms: Days Current Symptoms Are (Timing): Still Present Suicide/Self Injury Attempted (Context): None Modifying Factor(s): Alcohol Associated Symptoms: denies: Depression, Suicidal Thoughts, Suicidal Plan Recent travel outside of the [place]: No Additional History Per: Patient Past Medical History Reviewed: Historical Data, Nursing Documentation, Vital Signs Vital Signs: Last Vital Signs Temp 98.3 F 07/19/17 18:29 Pulse 82 07/19/17 23:17 Resp 18 07/19/17 23:17 BP 116/78 07/19/17 23:17 Pulse Ox 94 L 07/19/17 23:17 - Medical History PMH: Anxiety, Asthma, Back Problems, Bipolar Disorder, Depression, Gastritis, HTN, Schizophrenia, Chronic Pain (Back Pain) Surgical History: Hernia Repair, Tonsillectomy - [facility] Procedures DETOXIFICATION SERVICES FOR SUBSTANCE ABUSE TREATMENT (12/26/15) Family History: States: Unknown Family Hx - Social History Hx Tobacco Use: No Hx Alcohol Use: Yes Hx Substance Use: No - Immunization History Hx Tetanus Toxoid Vaccination: (unk) Hx Influenza Vaccination: (unk) Hx Pneumococcal Vaccination: (unk) Review Of Systems Constitutional: Negative for: Fever, Chills Cardiovascular: Negative for: Chest Pain, Palpitations Respiratory: Negative for: Cough, Shortness of Breath Gastrointestinal: Negative for: Abdominal Pain Skin: Negative for: Rash Psych: Negative for: Depression, Suicidal ideation Physical Exam - Physical Exam Appears: Non-toxic, No Acute Distress Skin: Warm, Dry Head: Normacephalic Eye(s): bilateral: Normal Inspection Nose: No Discharge Oral Mucosa: Moist Neck: Supple Chest: Symmetrical Cardiovascular: Rhythm Regular, No Murmur Respiratory: No Rales, No Rhonchi, No Wheezing Gastrointestinal/Abdominal: Soft, No Tenderness, No Guarding, No Rebound Extremity: Normal ROM Neurological/Psych: Oriented x3 Gait: Unable To Assess ED Course And Treatment O2 Sat by Pulse Oximetry: 93 Pulse Ox Interpretation: Normal Reevaluation Time: 05:48 Reassessment Condition: Improved Disposition Counseled Patient/Family Regarding: Studies Performed, Diagnosis - Disposition Referrals: at [facility] [Outside] Disposition: HOME/ ROUTINE Disposition Time: 19:05 Condition: FAIR Instructions: Alcohol Abuse and Alcoholism (DC) Forms: [facility] (Romansh) - Clinical Impression Clinical Impression: Alcohol abuse with intoxication - Scribe Statement The provider has reviewed the documentation as recorded by the Scribe Eulogio Sanchez All medical record entries made by the Scribe were at my direction and personally dictated by me. I have reviewed the chart and agree that the record accurately reflects my personal performance of the history, physical exam, medical decision making, and the department course for this patient. I have also personally directed, reviewed, and agree with the discharge instructions and disposition.
[2017-07-19 23:18] VITALS: RESP 18
[2017-07-20 05:51] VITALS: BP 108/70; PULSE 84; O2SAT 95
== END 2017-07-20 05:50 | disposition home or self-care (01) ==
LOC: C.ER 18:21
DX: F10.129 Alcohol abuse with intoxication, unspecified (principal)

== ENCOUNTER 2017-07-21 12:34 | Emergency (ER) | payer MEDICARE, SELFPAY ==
[2017-07-21 12:35] VITALS: BMI 29.6
[2017-07-21 12:44] VITALS: RESP 20; TEMP 97.7; O2SAT 99
--- NOTE | 2017-07-21 13:20 | C.PDOC ---
History Of Present Illness 71 year old male with multiple prior visits to the ED is brought in by BLS after being found in the street. Patient denies any alcohol consumption today. Patient denies SI/HI, hallucinations, CP SOB, abdominal pain. Time Seen by Provider: 07/21/17 13:14 Chief Complaint (Nursing): Substance Abuse History Per: Patient, EMS History/Exam Limitations: intoxication Onset/Duration Of Symptoms: Days Current Symptoms Are (Timing): Still Present Suicide/Self Injury Attempted (Context): None Modifying Factor(s): None Associated Symptoms: denies: Depression, Suicidal Thoughts, Suicidal Plan Recent travel outside of the [place]: No Additional History Per: Patient Past Medical History Reviewed: Historical Data, Nursing Documentation, Vital Signs Vital Signs: Last Vital Signs Temp 97.7 F 07/21/17 12:44 Pulse 76 07/21/17 12:44 Resp 20 07/21/17 12:44 BP 119/76 07/21/17 12:44 Pulse Ox 99 07/21/17 13:32 - Medical History PMH: Anxiety, Asthma, Back Problems, Bipolar Disorder, Depression, Gastritis, HTN, Schizophrenia, Chronic Pain (Back Pain) Surgical History: Hernia Repair, Tonsillectomy - [facility] Procedures DETOXIFICATION SERVICES FOR SUBSTANCE ABUSE TREATMENT (12/26/15) Family History: States: Unknown Family Hx - Social History Hx Tobacco Use: No Hx Alcohol Use: Yes Hx Substance Use: No - Immunization History Hx Tetanus Toxoid Vaccination: (unk) Hx Influenza Vaccination: (unk) Hx Pneumococcal Vaccination: (unk) Review Of Systems Constitutional: Negative for: Fever, Chills Cardiovascular: Negative for: Chest Pain Respiratory: Negative for: Shortness of Breath Gastrointestinal: Negative for: Vomiting, Abdominal Pain Skin: Negative for: Rash Psych: Negative for: Depression, Suicidal ideation Physical Exam - Physical Exam Appears: Non-toxic, No Acute Distress, Unkempt Skin: Normal Color, Warm, Dry Head: Atraumatic, Normacephalic Eye(s): bilateral: Normal Inspection Nose: No Discharge Oral Mucosa: Moist Neck: Normal ROM, Supple Chest: Symmetrical Cardiovascular: Rhythm Regular, No Murmur Respiratory: Normal Breath Sounds, No Rales, No Rhonchi, No Wheezing Gastrointestinal/Abdominal: Soft, No Tenderness, No Guarding, No Rebound Extremity: Normal ROM, No Tenderness, No Swelling Neurological/Psych: Oriented x3 Gait: Steady ED Course And Treatment O2 Sat by Pulse Oximetry: 99 (On RA) Pulse Ox Interpretation: Normal Medical Decision Making Medical Decision Making: malingering, not intoxicated Disposition Doctor Will See Patient In The: Office Counseled Patient/Family Regarding: Studies Performed, Diagnosis - Disposition Referrals: Alcoholics Anonymous [Outside] [facility] [Outside] [facility] [Outside] [facility] [Outside] Disposition: HOME/ ROUTINE Disposition Time: 13:32 Condition: GOOD Additional Instructions: seek nightly fpc placement stop alcohol abuse seek psych and nephrology social worker as listed below. Instructions: Alcohol Use - When Is Drinking a Problem? Forms: [facility] (Mongolian) - Clinical Impression Clinical Impression: Homelessness, Malingering - Scribe Statement The provider has reviewed the documentation as recorded by the Scribe Eulogio Sanchez All medical record entries made by the Scribe were at my direction and personally dictated by me. I have reviewed the chart and agree that the record accurately reflects my personal performance of the history, physical exam, medical decision making, and the department course for this patient. I have also personally directed, reviewed, and agree with the discharge instructions and disposition.
[2017-07-21 14:37] VITALS: BP 127/83; PULSE 83
== END 2017-07-21 14:38 | disposition home or self-care (01) ==
LOC: C.ER 12:34
DX: Z59.0 Homelessness (principal); Z76.5 Malingerer [conscious simulation]; I10 Essential (primary) hypertension; F41.9 Anxiety disorder, unspecified; F17.210 Nicotine dependence, cigarettes, uncomplicated

== ENCOUNTER 2017-07-22 13:13 | Emergency (ER) | payer MEDICARE ==
[2017-07-22 13:15] VITALS: BMI 29.6
[2017-07-22 13:22] VITALS: BP 124/79; PULSE 92; RESP 20; TEMP 98.2; O2SAT 95
--- NOTE | 2017-07-22 13:33 | C.PDOC ---
History Of Present Illness 71 year old male presents to the ED with acute alcohol intoxication for an unknown duration. Patient is familiar to this ED and has had many prior presentations with similar symptoms. Patient denies SI/HI and has no other complaints at this time. Time Seen by Provider: 07/22/17 13:31 Chief Complaint (Nursing): Substance Abuse History Per: Patient History/Exam Limitations: no limitations, intoxication Onset/Duration Of Symptoms: Unknown Current Symptoms Are (Timing): Still Present Suicide/Self Injury Attempted (Context): None Modifying Factor(s): Alcohol Associated Symptoms: denies: Suicidal Thoughts, Suicidal Plan Involuntary Hold By: None Recent travel outside of the [place]: No Additional History Per: Patient Past Medical History Reviewed: Historical Data, Nursing Documentation, Vital Signs Vital Signs: Last Vital Signs Temp 98.2 F 07/22/17 13:19 Pulse 92 H 07/22/17 13:19 Resp 20 07/22/17 13:19 BP 124/79 07/22/17 13:19 Pulse Ox 95 07/22/17 13:33 - Medical History PMH: Anxiety, Asthma, Back Problems, Bipolar Disorder, Depression, Gastritis, HTN, Schizophrenia, Chronic Pain (Back Pain) Surgical History: Hernia Repair, Tonsillectomy - [facility] Procedures DETOXIFICATION SERVICES FOR SUBSTANCE ABUSE TREATMENT (12/26/15) Family History: States: Unknown Family Hx - Social History Hx Tobacco Use: No Hx Alcohol Use: Yes Hx Substance Use: No - Immunization History Hx Tetanus Toxoid Vaccination: (unk) Hx Influenza Vaccination: (unk) Hx Pneumococcal Vaccination: (unk) Review Of Systems Psych: Positive for: Other (EtOH intoxication ). Negative for: Suicidal ideation Physical Exam - Physical Exam Appears: Non-toxic, No Acute Distress, Unkempt, Other (foul-smelling ) Skin: Normal Color, Warm, Dry Head: Atraumatic, Normacephalic Eye(s): bilateral: Normal Inspection Oral Mucosa: Moist, Other (alcohol on breath ) Neck: Supple Chest: Symmetrical, No Deformity, No Tenderness Cardiovascular: Rhythm Regular, No Murmur Respiratory: Normal Breath Sounds, No Rales, No Rhonchi, No Wheezing Gastrointestinal/Abdominal: Soft, No Tenderness, No Guarding, No Rebound Extremity: Normal ROM, Capillary Refill (less than 2 seconds ) Neurological/Psych: Other (arousable to touch and verbal stimuli ) ED Course And Treatment O2 Sat by Pulse Oximetry: 95 (on RA) Pulse Ox Interpretation: Normal Medical Decision Making Medical Decision Making: malingering, homeless, alcohol abuse, recent incarceration no acute issues Seen yesterday for same- Disposition Doctor Will See Patient In The: Office Counseled Patient/Family Regarding: Studies Performed, Diagnosis - Disposition Referrals: Alcoholics Anonymous [Outside] [facility] [place] [Outside] [facility] [Outside] Disposition: HOME/ ROUTINE Disposition Time: 13:32 Condition: GOOD Instructions: Alcohol Abuse and Alcoholism (DC), Effects of Alcohol on Your Health Forms: [facility] [facility] (Samoan) - Clinical Impression Clinical Impression: Homelessness, Alcohol abuse - Scribe Statement The provider has reviewed the documentation as recorded by the Scribe (Chrissy Leiva) Provider Attestation: All medical record entries made by the Scribe were at my direction and personally dictated by me. I have reviewed the chart and agree that the record accurately reflects my personal performance of the history, physical exam, medical decision making, and the department course for this patient. I have also personally directed, reviewed, and agree with the discharge instructions and disposition.
== END 2017-07-22 13:43 | disposition home or self-care (01) ==
LOC: C.ER 13:13
DX: F10.129 Alcohol abuse with intoxication, unspecified (principal); Y90.9 Presence of alcohol in blood, level not specified

== ENCOUNTER 2017-07-23 22:31 | Emergency (ER) | payer MEDICARE ==
[2017-07-23 22:32] VITALS: BMI 29.6
--- NOTE | 2017-07-23 23:16 | C.PDOC ---
History Of Present Illness 71 year old male brought to the ED via ELS for alcohol intoxication. Patient denies any physical complaints. No homicidal or suicidal ideation. Time Seen by Provider: 07/23/17 23:14 Chief Complaint (Nursing): Substance Abuse History Per: Patient History/Exam Limitations: intoxication Onset/Duration Of Symptoms: Hrs Current Symptoms Are (Timing): Still Present Suicide/Self Injury Attempted (Context): None Modifying Factor(s): Alcohol Severity: None Pain Scale Rating Of: 0 Involuntary Hold By: None Recent travel outside of the [place]: No Additional History Per: EMS Past Medical History Reviewed: Historical Data, Nursing Documentation, Vital Signs Vital Signs: Last Vital Signs Temp 97.8 F 07/24/17 01:22 Pulse 89 07/24/17 01:22 Resp 20 07/24/17 01:22 BP 122/63 07/24/17 01:22 Pulse Ox 97 07/24/17 01:22 - Medical History PMH: Anxiety, Asthma, Back Problems, Bipolar Disorder, Depression, Gastritis, HTN, Schizophrenia, Chronic Pain (Back Pain) Surgical History: Hernia Repair, Tonsillectomy - [facility] Procedures DETOXIFICATION SERVICES FOR SUBSTANCE ABUSE TREATMENT (12/26/15) Family History: States: Unknown Family Hx - Social History Hx Tobacco Use: No Hx Alcohol Use: Yes Hx Substance Use: No - Immunization History Hx Tetanus Toxoid Vaccination: (unk) Hx Influenza Vaccination: (unk) Hx Pneumococcal Vaccination: (unk) Review Of Systems Constitutional: Negative for: Fever Respiratory: Negative for: Shortness of Breath Gastrointestinal: Negative for: Vomiting Psych: Negative for: Suicidal ideation Physical Exam - Physical Exam Appears: Non-toxic, No Acute Distress Skin: Warm, Dry Head: Normacephalic Eye(s): bilateral: Normal Inspection Oral Mucosa: Moist Neck: Supple Chest: Symmetrical Cardiovascular: Rhythm Regular Respiratory: No Rales, No Rhonchi, No Wheezing Gastrointestinal/Abdominal: Soft, No Tenderness, No Distention Back: Normal Inspection Extremity: Bilateral: Atraumatic, Normal ROM Pulses: Left Dorsalis Pedis: Normal, Right Dorsalis Pedis: Normal Neurological/Psych: Oriented x3 ED Course And Treatment O2 Sat by Pulse Oximetry: 96 (RA) Pulse Ox Interpretation: Normal Progress Note: Accucheck ordered. Finger stick is 103. Pending clinical sobriety Reevaluation Time: 05:28 Reassessment Condition: Improved Disposition Counseled Patient/Family Regarding: Studies Performed, Diagnosis, Need For Followup - Disposition Referrals: [facility] [Outside] Disposition: HOME/ ROUTINE Disposition Time: 23:15 Condition: FAIR Instructions: Alcohol Abuse and Alcoholism (DC) Forms: [facility] (Marshallese) - Clinical Impression Clinical Impression: Alcohol abuse, Alcohol intoxication, Alcohol dependence - Scribe Statement The provider has reviewed the documentation as recorded by the Scribe (Natali Lake) Provider Attestation: All medical record entries made by the Scribe were at my direction and personally dictated by me. I have reviewed the chart and agree that the record accurately reflects my personal performance of the history, physical exam, medical decision making, and the department course for this patient. I have also personally directed, reviewed, and agree with the discharge instructions and disposition.
[2017-07-24 01:23] VITALS: TEMP 97.8
[2017-07-24 05:30] VITALS: O2SAT 96
[2017-07-24 05:37] VITALS: BP 119/68; PULSE 82; RESP 18
== END 2017-07-24 05:49 | disposition home or self-care (01) ==
LOC: C.ER 22:31
DX: F10.229 Alcohol dependence with intoxication, unspecified (principal)

== ENCOUNTER 2017-07-24 14:59 | Emergency (ER) | payer MEDICARE ==
[2017-07-24 15:00] VITALS: BMI 29.6
--- NOTE | 2017-07-24 15:39 | C.PDOC ---
History Of Present Illness <Milly Oneil - Last Filed: 07/24/17 18:34> <Jb Riddle - Last Filed: 07/25/17 05:20> 71 year old male brought to the ED via ELS with acute alcohol intoxication for an unknown duration. Patient is very well known to this ED and has daily prior presentations with similar symptoms. patient is easily awaken to verbal stimuli , denies any physical complaints. No homicidal or suicidal ideation. NO evidence of trauma or injury. (Milly Oneil) History Per: EMS History/Exam Limitations: no limitations Modifying Factor(s): Alcohol <Milly Oneil - Last Filed: 07/24/17 18:34> <Jb Riddle - Last Filed: 07/25/17 05:20> Time Seen by Provider: 07/24/17 15:08 Chief Complaint (Nursing): Substance Abuse Past Medical History Reviewed: Historical Data, Nursing Documentation, Vital Signs - Medical History PMH: Anxiety, Asthma, Back Problems, Bipolar Disorder, Depression, Gastritis, HTN, Schizophrenia, Chronic Pain (Back Pain) Surgical History: Hernia Repair, Tonsillectomy Family History: States: Unknown Family Hx - Social History Hx Tobacco Use: No Hx Alcohol Use: Yes Hx Substance Use: No - Immunization History Hx Tetanus Toxoid Vaccination: No (unk) Hx Influenza Vaccination: No (unk) Hx Pneumococcal Vaccination: No (unk) <Milly Oneil - Last Filed: 07/24/17 18:34> Vital Signs: Last Vital Signs Temp 98.4 F 07/25/17 00:52 Pulse 81 07/25/17 00:52 Resp 20 07/25/17 00:52 BP 121/73 07/25/17 00:52 Pulse Ox 97 07/25/17 00:52 - [facility] Procedures DETOXIFICATION SERVICES FOR SUBSTANCE ABUSE TREATMENT (12/26/15) Review Of Systems Except As Marked, All Systems Reviewed And Found Negative. Constitutional: Negative for: Fever, Chills Cardiovascular: Negative for: Chest Pain Respiratory: Negative for: Shortness of Breath Gastrointestinal: Negative for: Abdominal Pain Psych: Positive for: Other (alcohol abuse) <Milly Oneil - Last Filed: 07/24/17 18:34> Physical Exam - Physical Exam Appears: Non-toxic, No Acute Distress Skin: Normal Color, Warm, Dry, No Ecchymosis Head: Atraumatic, Normacephalic Eye(s): bilateral: PERRL Oral Mucosa: Moist, No Drooling, Other (alcohol on breath ) Neck: Normal ROM, No Midline Cervical Tenderness, No Paracervical Tenderness, No Step Off Deformity, Supple Chest: Symmetrical Cardiovascular: Rhythm Regular Respiratory: No Decreased Breath Sounds, No Accessory Muscle Use, No Stridor, No Wheezing Gastrointestinal/Abdominal: Soft, No Tenderness Back: No Vertebral Tenderness Extremity: Normal ROM, No Deformity Neurological/Psych: Oriented x3, Normal Motor, Normal Sensation, Normal Reflexes Gait: Unsteady <Milly Oneil - Last Filed: 07/24/17 18:34> ED Course And Treatment O2 Sat by Pulse Oximetry: 99 (RA) Pulse Ox Interpretation: Normal Progress Note: Patient sleeping on stretcher, no acute distress. FSBS 91. OBS for sobriety. At 1900, pt was OBS in ED for 4 hours and reamined stable. Pt is easily arousable to verbal stimuli, afebrile, hemodynamicaly stable. No sz activity in ED. Pt was able tolerate po well in ED. Case sign out to , sobriety, re-eval, dispo- pending. <Milly Oneil - Last Filed: 07/24/17 18:34> Pulse Ox Interpretation: Normal Reevaluation Time: 05:19 Reassessment Condition: Improved <Jb Riddle - Last Filed: 07/25/17 05:20> Disposition <Milly Oneil - Last Filed: 07/24/17 18:34> Counseled Patient/Family Regarding: Studies Performed, Diagnosis, Need For Followup - Disposition Disposition Time: 05:20 <Jb Riddle - Last Filed: 07/25/17 05:20> - Disposition Referrals: [facility] [Outside] Disposition: HOME/ ROUTINE Condition: FAIR Instructions: Drug Abuse and Drug Addiction (DC) Forms: [employer] (Zimbabwean) - Clinical Impression Clinical Impression: Alcohol abuse, Alcohol intoxication - PA / HAIRCUTTER / Resident Statement MD/DO has reviewed & agrees with the documentation as recorded. - Scribe Statement The provider has reviewed the documentation as recorded by the Scribe (Sirena Ramsey) <Milly Oneil - Last Filed: 07/24/17 18:34> <Jb Riddle - Last Filed: 07/25/17 05:20> - Scribe Statement Provider Attestation: All medical record entries made by the Scribe were at my direction and personally dictated by me. I have reviewed the chart and agree that the record accurately reflects my personal performance of the history, physical exam, medical decision making, and the department course for this patient. I have also personally directed, reviewed, and agree with the discharge instructions and disposition. (Milly Oneil) Physician Patient Turnover Patient Signed Over To: Jb Riddle Handoff Comments: Sobriety, re-eval, dispo <Milly Oneil - Last Filed: 07/24/17 18:34>
[2017-07-25 06:03] VITALS: BP 126/69; PULSE 79; RESP 18; TEMP 97.8; O2SAT 96
== END 2017-07-25 06:04 | disposition home or self-care (01) ==
LOC: C.ER 14:59
DX: F10.129 Alcohol abuse with intoxication, unspecified (principal); Y90.9 Presence of alcohol in blood, level not specified

== ENCOUNTER → 2017-07-25 10:51 | Emergency (ER) | payer MEDICARE ==
[2017-07-25 10:52] VITALS: BMI 29.6
== END | disposition left against medical advice (07) ==
LOC: C.ER 10:51
DX: Z02.89 Encounter for other administrative examinations (principal); F19.10 Other psychoactive substance abuse, uncomplicated

== ENCOUNTER 2017-07-25 13:09 | Emergency (ER) | payer MEDICARE ==
[2017-07-25 13:11] VITALS: BMI 29.6
[2017-07-25 13:18] VITALS: BP 103/66; PULSE 77; RESP 16; TEMP 97.8; O2SAT 97
--- NOTE | 2017-07-25 13:24 | C.PDOC ---
History Of Present Illness 71 year old male is brought to the ED by EMS for evaluation. Patient is familiar to this ED, has had multiple visits concerning similar complaints and was seen and discharged from ED 2 hours ago. Patient is ambulatory with a steady gait and denies alcohol use. Time Seen by Provider: 07/25/17 13:22 Chief Complaint (Nursing): Medical Clearance History Per: Patient, EMS History/Exam Limitations: no limitations Onset/Duration Of Symptoms: Hrs Current Symptoms Are (Timing): Still Present Additional History Per: Patient Past Medical History Reviewed: Historical Data, Nursing Documentation, Vital Signs Vital Signs: Last Vital Signs Temp 97.8 F 07/25/17 13:14 Pulse 77 07/25/17 13:14 Resp 16 07/25/17 13:14 BP 103/66 07/25/17 13:14 Pulse Ox 97 07/25/17 14:30 - Medical History PMH: Anxiety, Asthma, Back Problems, Bipolar Disorder, Depression, Gastritis, HTN, Schizophrenia, Chronic Pain (Back Pain) Surgical History: Hernia Repair, Tonsillectomy - [facility] Procedures DETOXIFICATION SERVICES FOR SUBSTANCE ABUSE TREATMENT (12/26/15) Family History: States: Unknown Family Hx - Social History Hx Tobacco Use: No Hx Alcohol Use: Yes Hx Substance Use: No - Immunization History Hx Tetanus Toxoid Vaccination: No (unk) Hx Influenza Vaccination: No (unk) Hx Pneumococcal Vaccination: No (unk) Physical Exam - Physical Exam Appears: Non-toxic, No Acute Distress, Other (disheveled, foul-smelling) Skin: Normal Color, Warm, Dry Head: Normacephalic Eye(s): bilateral: Normal Inspection Oral Mucosa: Moist Neck: Supple Chest: Symmetrical, No Deformity, No Tenderness Cardiovascular: Rhythm Regular, No Murmur Respiratory: Normal Breath Sounds, No Rales, No Rhonchi, No Wheezing Extremity: Normal ROM, Capillary Refill (less than 2 seconds ) Neurological/Psych: Oriented x3, Normal Speech, Normal Cognition Gait: Steady ED Course And Treatment O2 Sat by Pulse Oximetry: 97 (on RA) Pulse Ox Interpretation: Normal Medical Decision Making Medical Decision Making: malingering BIBA no acute issues since 2 hours ago when last discharged and walked out with stable gait pt declines eval no injuries stable gait now ok for d/c. Disposition Doctor Will See Patient In The: Office Counseled Patient/Family Regarding: Studies Performed, Diagnosis - Disposition Referrals: Alcoholics Anonymous [Outside] [facility] [Outside] [facility] [Outside] [facility] [Outside] Disposition: HOME/ ROUTINE Disposition Time: 13:24 Condition: GOOD Additional Instructions: seek daily and nightly snf placement as you have been directed MANY times. Forms: General Discharge Instructions, [facility] (Mosotho) - Clinical Impression Clinical Impression: Malingering - Scribe Statement The provider has reviewed the documentation as recorded by the Scribe (Chrissy Leiva) Provider Attestation: All medical record entries made by the Scribe were at my direction and personally dictated by me. I have reviewed the chart and agree that the record accurately reflects my personal performance of the history, physical exam, medical decision making, and the department course for this patient. I have also personally directed, reviewed, and agree with the discharge instructions and disposition.
== END 2017-07-25 13:49 | disposition home or self-care (01) ==
LOC: C.ER 13:09
DX: Z76.5 Malingerer [conscious simulation] (principal)

== ENCOUNTER 2017-07-25 15:00 | Emergency (ER) | payer MEDICARE ==
[2017-07-25 15:01] VITALS: BMI 29.6
[2017-07-25 15:08] VITALS: BP 101/62; PULSE 95; RESP 18; TEMP 98.4; O2SAT 97
--- NOTE | 2017-07-25 15:11 | C.PDOC ---
History Of Present Illness 71 year old male is brought to the ED by EMS for evaluation. Patient has been evaluated in this ED three times today and twice by this physician. Patient was discharged from the ED around 90 minutes ago with a steady gait. Following discharge, patient walked to the [facility] where he was found by EMS. Patient demanded to be lifted by stretcher, stating that he could not walk. Pt walked from the ambulance to ED 8 without assitance with the same gait noted 90 mins ago. Patient denies suicidal/homicidal ideation and has no complaints at this time. Time Seen by Provider: 07/25/17 15:09 Chief Complaint (Nursing): Substance Abuse History Per: Patient, EMS History/Exam Limitations: no limitations Onset/Duration Of Symptoms: Hrs Current Symptoms Are (Timing): Still Present Suicide/Self Injury Attempted (Context): None Associated Symptoms: denies: Suicidal Thoughts, Suicidal Plan Involuntary Hold By: None Recent travel outside of the [place]: No Additional History Per: Patient Past Medical History Reviewed: Historical Data, Nursing Documentation, Vital Signs Vital Signs: Last Vital Signs Temp 98.4 F 07/25/17 15:08 Pulse 95 H 07/25/17 15:08 Resp 18 07/25/17 15:08 BP 101/62 07/25/17 15:08 Pulse Ox 97 07/25/17 22:46 - Medical History PMH: Anxiety, Asthma, Back Problems, Bipolar Disorder, Depression, Gastritis, HTN, Schizophrenia, Chronic Pain (Back Pain) Surgical History: Hernia Repair, Tonsillectomy - [facility] Procedures DETOXIFICATION SERVICES FOR SUBSTANCE ABUSE TREATMENT (12/26/15) Family History: States: Unknown Family Hx - Social History Hx Tobacco Use: No Hx Alcohol Use: Yes Hx Substance Use: No - Immunization History Hx Tetanus Toxoid Vaccination: No (unk) Hx Influenza Vaccination: No (unk) Hx Pneumococcal Vaccination: No (unk) Review Of Systems Psych: Negative for: Suicidal ideation Physical Exam - Physical Exam Appears: Non-toxic, No Acute Distress, Unkempt, Other (disheveled, foul-smelling ) Skin: Normal Color, Warm, Dry Head: Atraumatic, Normacephalic Eye(s): bilateral: Normal Inspection Oral Mucosa: Moist Neck: Supple Chest: Symmetrical, No Deformity, No Tenderness Cardiovascular: Rhythm Regular, No Murmur Respiratory: Normal Breath Sounds, No Rales, No Rhonchi, No Wheezing Extremity: Normal ROM, Capillary Refill (less than 2 seconds ) Neurological/Psych: Oriented x3, Normal Speech, Normal Cognition Gait: Steady ED Course And Treatment O2 Sat by Pulse Oximetry: 97 (on RA) Pulse Ox Interpretation: Normal Progress Note: Patient seen ambulating freely with a steady gait in the ED and is stable for discharge. Medical Decision Making Medical Decision Makinrd visit today, BIBRenae again was d/c 90 mins ago, walked to the [facility] steps and feigns unable to walk Walked into the ED, NAD no change in exam from 90 mins ago malingering. Disposition Doctor Will See Patient In The: Office Counseled Patient/Family Regarding: Studies Performed, Diagnosis - Disposition Referrals: Alcoholics Anonymous [Outside] [facility] [Outside] [facility] [Outside] [facility] [Outside] Disposition: HOME/ ROUTINE Disposition Time: 15:11 Condition: GOOD Additional Instructions: PT IS MEDICALLY CLEARED FOR INCARCERATION FOLLOW-up as outpatient psych/substance abuse Seek nightly retirement placement. Forms: General Discharge Instructions, [facility] (Yoruba) - Clinical Impression Clinical Impression: Malingering - Scribe Statement The provider has reviewed the documentation as recorded by the Scribe (Chrissy Leiva) Provider Attestation: All medical record entries made by the Scribe were at my direction and personally dictated by me. I have reviewed the chart and agree that the record accurately reflects my personal performance of the history, physical exam, medical decision making, and the department course for this patient. I have also personally directed, reviewed, and agree with the discharge instructions and disposition.
== END 2017-07-25 15:22 | disposition home or self-care (01) ==
LOC: C.ER 15:00
DX: Z76.5 Malingerer [conscious simulation] (principal)

== ENCOUNTER 2017-07-27 18:42 | Emergency (ER) | payer MEDICARE ==
[2017-07-27 18:42] VITALS: BMI 29.6
[2017-07-27 18:48] VITALS: TEMP 98.1
--- NOTE | 2017-07-27 22:43 | C.PDOC ---
History Of Present Illness 71 y/o male brought in by ambulance for ETOH intoxication. Patient requesting a place to stay the night. Has had multiple ED visits for the same. No physical complaints offered. Time Seen by Provider: 07/27/17 19:15 Chief Complaint (Nursing): Substance Abuse History Per: Patient History/Exam Limitations: intoxication Onset/Duration Of Symptoms: Days Current Symptoms Are (Timing): Still Present Suicide/Self Injury Attempted (Context): None Modifying Factor(s): Alcohol Severity: None Pain Scale Rating Of: 0 Involuntary Hold By: None Recent travel outside of the [place]: No Additional History Per: EMS Past Medical History Reviewed: Historical Data, Nursing Documentation, Vital Signs Vital Signs: Last Vital Signs Temp 98.1 F 07/27/17 22:39 Pulse 84 07/28/17 04:00 Resp 14 07/28/17 04:00 BP 110/60 07/28/17 04:00 Pulse Ox 96 07/28/17 04:00 - Medical History PMH: Anxiety, Asthma, Back Problems, Bipolar Disorder, Depression, Gastritis, HTN, Schizophrenia, Chronic Pain (Back Pain) Surgical History: Hernia Repair, Tonsillectomy - [facility] Procedures DETOXIFICATION SERVICES FOR SUBSTANCE ABUSE TREATMENT (12/26/15) Family History: States: Unknown Family Hx - Social History Hx Tobacco Use: No Hx Alcohol Use: Yes Hx Substance Use: No - Immunization History Hx Tetanus Toxoid Vaccination: No (unk) Hx Influenza Vaccination: No (unk) Hx Pneumococcal Vaccination: No (unk) Review Of Systems Constitutional: Negative for: Fever Respiratory: Negative for: Shortness of Breath Psych: Positive for: Other (etoh intoxication) Physical Exam - Physical Exam Appears: No Acute Distress, Other (Foul smelling, alcohol on breath) Skin: Warm, Dry Head: Normacephalic Eye(s): bilateral: Normal Inspection Oral Mucosa: Moist Neck: Trachea Midline, Supple Chest: Symmetrical Cardiovascular: Rhythm Regular Respiratory: No Rales, No Rhonchi, No Wheezing Gastrointestinal/Abdominal: Soft, No Tenderness, No Distention Extremity: Bilateral: Atraumatic, Normal ROM Neurological/Psych: Oriented x3 Gait: Steady ED Course And Treatment O2 Sat by Pulse Oximetry: 96 (RA) Pulse Ox Interpretation: Normal Progress Note: Patient is resting comfortably in the ED. No medical complaints offered. Patient stable for d/c home. Reevaluation Time: 04:57 Reassessment Condition: Improved Disposition Counseled Patient/Family Regarding: Studies Performed, Diagnosis, Need For Followup - Disposition Referrals: [facility] [Outside] Disposition: HOME/ ROUTINE Disposition Time: 04:57 Condition: FAIR Instructions: Alcohol Abuse and Alcoholism (DC) Forms: [facility] (Ukrainian) - Clinical Impression Clinical Impression: Alcohol abuse with intoxication - Scribe Statement The provider has reviewed the documentation as recorded by the [place] Provider Attestation: All medical record entries made by the Omar were at my direction and personally dictated by me. I have reviewed the chart and agree that the record accurately reflects my personal performance of the history, physical exam, medical decision making, and the department course for this patient. I have also personally directed, reviewed, and agree with the discharge instructions and disposition.
[2017-07-28 04:53] VITALS: PULSE 84
[2017-07-28 05:59] VITALS: BP 129/76; RESP 17; O2SAT 98
== END 2017-07-28 05:59 | disposition home or self-care (01) ==
LOC: C.ER 18:42
DX: F10.129 Alcohol abuse with intoxication, unspecified (principal)

== ENCOUNTER 2017-07-28 20:13 | Emergency (ER) | payer MEDICARE ==
[2017-07-28 20:14] VITALS: BMI 29.6
--- NOTE | 2017-07-28 22:19 | C.PDOC ---
History Of Present Illness 71 y/o male presents to the ED intoxicated, admits to drinking all day. After bed placement, patient attempted to use the wheelchair as a walker to use the bathroom and fell backwards, hitting the back of head. No LOC. Denies any nausea , vomiting, or visual changes. Patient remembers all details of the event. Time Seen by Provider: 07/28/17 22:18 Chief Complaint (Nursing): Substance Abuse History Per: Patient History/Exam Limitations: intoxication Onset/Duration Of Symptoms: Hrs Current Symptoms Are (Timing): Still Present Suicide/Self Injury Attempted (Context): None Modifying Factor(s): Alcohol Severity: Mild Pain Scale Rating Of: 4 Involuntary Hold By: None Recent travel outside of the [place]: No Past Medical History Reviewed: Historical Data, Nursing Documentation, Vital Signs Vital Signs: Last Vital Signs Temp 97.3 F L 07/28/17 20:40 Pulse 66 07/28/17 20:40 Resp 18 07/28/17 20:40 BP 147/74 07/28/17 20:40 Pulse Ox 95 07/29/17 00:26 - Medical History PMH: Anxiety, Asthma, Back Problems, Bipolar Disorder, Depression, Gastritis, HTN, Schizophrenia, Chronic Pain (Back Pain) Surgical History: Hernia Repair, Tonsillectomy - [facility] Procedures DETOXIFICATION SERVICES FOR SUBSTANCE ABUSE TREATMENT (12/26/15) Family History: States: Unknown Family Hx - Social History Hx Tobacco Use: No Hx Alcohol Use: Yes Hx Substance Use: No - Immunization History Hx Tetanus Toxoid Vaccination: No (unk) Hx Influenza Vaccination: No (unk) Hx Pneumococcal Vaccination: No (unk) Review Of Systems Cardiovascular: Negative for: Chest Pain Respiratory: Negative for: Shortness of Breath Neurological: Positive for: Other (head injury). Negative for: Dizziness Psych: Positive for: Other (alcohol intoxication) Physical Exam - Physical Exam Appears: No Acute Distress, Other (Alcohol on breath, foul-smelling) Skin: Warm, Dry Head: Normacephalic, No Swelling, Abrasion (small abrasion to occipital area) Eye(s): bilateral: Normal Inspection, PERRL, EOMI Ear(s): Bilateral: Normal Oral Mucosa: Moist Neck: Trachea Midline, Supple Chest: Symmetrical Cardiovascular: Rhythm Regular Respiratory: No Rales, No Rhonchi, No Wheezing Gastrointestinal/Abdominal: Soft, No Tenderness, No Distention Extremity: Bilateral: Atraumatic, Normal Color And Temperature, Normal ROM Neurological/Psych: Oriented x3 ED Course And Treatment O2 Sat by Pulse Oximetry: 95 (RA) Pulse Ox Interpretation: Normal - CT Scan/US CT Head Other Rad Studies (CT/US): Read By Radiologist, Radiology Report Reviewed CT/US Interpretation: FINDINGS: Brain: There is moderate diffuse cerebral atrophy present, consistent with this patient's age. There. is mild diffuse heterogeneity of the white matter attenuation, consistent with chronic white matter. ischemic changes. No hemorrhage. Ventricles: The ventricular system demonstrates moderate diffuse compensatory enlargement. Bones/joints: Unremarkable. No acute fracture. Soft tissues: RIGHT parietal scalp soft tissue swelling and laceration. Sinuses: There is mild mucoperiosteal thickening in the right maxillary and ethmoid sinuses,. consistent with chronic sinusitis. Mastoid air cells: Unremarkable as visualized. No mastoid effusion. IMPRESSION: Age-related atrophy and chronic white matter ischemic changes, with no evidence of an acute. intracranial abnormality. Mild chronic sinusitis. Thank you for allowing us to participate in the care of your patient. Dictated and Authenticated by: Dayana Chicas MD. 07/29/2017 12: 23 AM Eastern Time (US & Jan) Progress Note: Ordered CT Head. Patient is resting comfortably with no other acute symptoms. Pending reevaluation. Reevaluation Time: 04:48 Reassessment Condition: Improved Disposition Counseled Patient/Family Regarding: Studies Performed, Diagnosis, Need For Followup - Disposition Referrals: [facility] [Outside] Disposition: HOME/ ROUTINE Disposition Time: 22:19 Condition: FAIR Instructions: Alcohol Abuse and Alcoholism (DC), Minor Head Injury (DC) Forms: [employer] (Bulgarian) - Clinical Impression Clinical Impression: Alcohol abuse, Alcohol intoxication, Minor head injury without loss of consciousness - Scribe Statement The provider has reviewed the documentation as recorded by the [place] Provider Attestation: All medical record entries made by the [place] were at my direction and personally dictated by me. I have reviewed the chart and agree that the record accurately reflects my personal performance of the history, physical exam, medical decision making, and the department course for this patient. I have also personally directed, reviewed, and agree with the discharge instructions and disposition.
--- NOTE | 2017-07-29 00:23 | CT ---
EXAM: CT Head Without Intravenous Contrast CLINICAL HISTORY: 71 years old, male; Injury or trauma; Fall; Initial encounter; Abrasion; Head, generalized TECHNIQUE: Axial computed tomography images of the head/brain without intravenous contrast. All CT scans at this facility use one or more dose reduction techniques, viz.: automated exposure control; ma/kV adjustment per patient size (including targeted exams where dose is matched to indication; i.e. head); or iterative reconstruction technique. Coronal and sagittal reformatted images were created and reviewed. COMPARISON: No relevant prior studies available. FINDINGS: Brain: There is moderate diffuse cerebral atrophy present, consistent with this patient's age. There is mild diffuse heterogeneity of the white matter attenuation, consistent with chronic white matter ischemic changes. No hemorrhage. Ventricles: The ventricular system demonstrates moderate diffuse compensatory enlargement. Bones/joints: Unremarkable. No acute fracture. Soft tissues: RIGHT parietal scalp soft tissue swelling and laceration. Sinuses: There is mild mucoperiosteal thickening in the right maxillary and ethmoid sinuses, consistent with chronic sinusitis. Mastoid air cells: Unremarkable as visualized. No mastoid effusion. IMPRESSION: Age-related atrophy and chronic white matter ischemic changes, with no evidence of an acute intracranial abnormality. Mild chronic sinusitis.
[2017-07-29 05:02] VITALS: BP 152/92; PULSE 97; RESP 16; TEMP 97.8; O2SAT 98
== END 2017-07-29 05:30 | disposition home or self-care (01) ==
LOC: C.ER 20:13
DX: F10.129 Alcohol abuse with intoxication, unspecified (principal); Y90.9 Presence of alcohol in blood, level not specified; S09.90XA Unspecified injury of head, initial encounter; W18.30XA Fall on same level, unspecified, initial encounter

== ENCOUNTER 2017-07-29 14:29 | Emergency (ER) | payer MEDICARE ==
[2017-07-29 14:30] VITALS: BMI 29.6
--- NOTE | 2017-07-29 16:26 | C.PDOC ---
History Of Present Illness <Darren Mckeon - Last Filed: 07/29/17 18:30> <Jb Riddle - Last Filed: 07/30/17 01:58> 71yo male, brought to ED by EMS after patient was discovered publicly intoxicated. Patient is well known to ER for multiple visits with similar presentation. He currently denies any fever, chills, chest pain, shortness of breath, abdominal pain. No other complaints. (MikeDarren Nicole) History Per: Patient Onset/Duration Of Symptoms: Persistent <Darren Mckeon - Last Filed: 07/29/17 18:30> <Jb Riddle - Last Filed: 07/30/17 01:58> Time Seen by Provider: 07/29/17 15:31 Chief Complaint (Nursing): Substance Abuse Past Medical History Reviewed: Historical Data, Nursing Documentation, Vital Signs - Medical History PMH: Anxiety, Asthma, Back Problems, Bipolar Disorder, Depression, Gastritis, HTN, Schizophrenia, Chronic Pain (Back Pain) Surgical History: Hernia Repair, Tonsillectomy Family History: States: Unknown Family Hx - Social History Hx Tobacco Use: No Hx Alcohol Use: Yes Hx Substance Use: No - Immunization History Hx Tetanus Toxoid Vaccination: No (unk) Hx Influenza Vaccination: No (unk) Hx Pneumococcal Vaccination: No (unk) <Darren Mckeon - Last Filed: 07/29/17 18:30> Vital Signs: Last Vital Signs Temp 98.4 F 07/29/17 19:05 Pulse 87 07/29/17 19:05 Resp 18 07/29/17 19:05 BP 112/75 07/29/17 19:05 Pulse Ox 98 07/29/17 19:05 - [facility] Procedures DETOXIFICATION SERVICES FOR SUBSTANCE ABUSE TREATMENT (12/26/15) Review Of Systems Except As Marked, All Systems Reviewed And Found Negative. Constitutional: Negative for: Fever Cardiovascular: Negative for: Chest Pain <Darren Mckeon - Last Filed: 07/29/17 18:30> Physical Exam <Darren Mckeon - Last Filed: 07/29/17 18:30> <Jb Riddle - Last Filed: 07/30/17 01:58> - Physical Exam Additional Physical Exam Comments: Constitutional: No acute distress. Head: Normocephalic. Atraumatic. Eyes: PERRL. Neck: Supple. Cardiovascular: Regular rate. Radial pulse 2+ bilaterally. Chest: No tenderness. Respiratory: Clear to auscultation bilaterally. Skin: No rash. Neurologic: Alert, no focal deficit. (Darren Mckeon) ED Course And Treatment O2 Sat by Pulse Oximetry: 98 (RA) Pulse Ox Interpretation: Normal <Darren Mckeon - Last Filed: 07/29/17 18:30> Pulse Ox Interpretation: Normal Reevaluation Time: 01:57 Reassessment Condition: Improved <Jb Riddle - Last Filed: 07/30/17 01:58> Medical Decision Making <MikeDarren Nicole - Last Filed: 07/29/17 18:30> <Jb Riddle - Last Filed: 07/30/17 01:58> Medical Decision Making: Impression: Alcohol intoxication Plan: -- Pending clinical sobriety. 1830 Intoxicated, unable to stand or ambulate. Will sign out to ED night team pending sobriety. (Darren Mckeon) Disposition <Darren Mckeon - Last Filed: 07/29/17 18:30> Counseled Patient/Family Regarding: Studies Performed, Diagnosis, Need For Followup - Disposition Disposition Time: 01:00 <Jb Riddle - Last Filed: 07/30/17 01:58> - Disposition Referrals: [facility] [Outside] Disposition: HOME/ ROUTINE Condition: FAIR Instructions: Alcohol Abuse and Alcoholism (DC) Forms: [facility] (Bolivian) - Clinical Impression Clinical Impression: Alcohol intoxication - Scribe Statement The provider has reviewed the documentation as recorded by the Scribe (Sirena Ramsey) <Darren Mckeon - Last Filed: 07/29/17 18:30> <Jb Riddle - Last Filed: 07/30/17 01:58> - Scribe Statement Provider Attestation: All medical record entries made by the Scribe were at my direction and personally dictated by me. I have reviewed the chart and agree that the record accurately reflects my personal performance of the history, physical exam, medical decision making, and the department course for this patient. I have also personally directed, reviewed, and agree with the discharge instructions and disposition. (Darren Mckeon)
[2017-07-30 02:00] VITALS: BP 145/80; PULSE 88; RESP 20; TEMP 98.2; O2SAT 99
== END 2017-07-30 02:00 | disposition home or self-care (01) ==
LOC: C.ER 14:29
DX: F10.129 Alcohol abuse with intoxication, unspecified (principal); Y90.9 Presence of alcohol in blood, level not specified

== ENCOUNTER 2017-07-30 16:25 | Emergency (ER) | payer MEDICARE ==
[2017-07-30 20:37] VITALS: BMI 29.6
--- NOTE | 2017-07-30 20:56 | C.PDOC ---
History Of Present Illness 71 y/o male presents to the ED via EMS for public intoxication. Patient offers no physical complaints at this time. Denies any suicidal or homicidal ideation. Time Seen by Provider: 07/30/17 16:53 Chief Complaint (Nursing): Substance Abuse History Per: Patient History/Exam Limitations: no limitations Onset/Duration Of Symptoms: Days Current Symptoms Are (Timing): Still Present Suicide/Self Injury Attempted (Context): None Modifying Factor(s): Alcohol Past Medical History Reviewed: Historical Data, Nursing Documentation, Vital Signs Vital Signs: Last Vital Signs Temp 98 F 07/30/17 20:44 Pulse 78 07/30/17 20:44 Resp 18 07/30/17 20:44 BP 136/86 07/30/17 20:44 Pulse Ox 98 07/30/17 23:40 - Medical History PMH: Anxiety, Asthma, Back Problems, Bipolar Disorder, Depression, Gastritis, HTN, Schizophrenia, Chronic Pain (Back Pain) Surgical History: Hernia Repair, Tonsillectomy - [facility] Procedures DETOXIFICATION SERVICES FOR SUBSTANCE ABUSE TREATMENT (12/26/15) Family History: States: Unknown Family Hx - Social History Hx Tobacco Use: No Hx Alcohol Use: Yes Hx Substance Use: No - Immunization History Hx Tetanus Toxoid Vaccination: No (unk) Hx Influenza Vaccination: No (unk) Hx Pneumococcal Vaccination: No (unk) Review Of Systems Except As Marked, All Systems Reviewed And Found Negative. Constitutional: Negative for: Fever Respiratory: Negative for: Shortness of Breath Psych: Positive for: Other (alcohol intoxication). Negative for: Suicidal ideation Physical Exam - Physical Exam Appears: No Acute Distress, Other (Foul smelling, Alcohol on breath) Skin: Normal Color, Warm, Dry Head: Atraumatic, Normacephalic Eye(s): bilateral: Normal Inspection, PERRL, EOMI Oral Mucosa: Moist Neck: Normal ROM Chest: Symmetrical Cardiovascular: Rhythm Regular, No Murmur Respiratory: Normal Breath Sounds, No Rhonchi, No Wheezing Gastrointestinal/Abdominal: Soft, No Tenderness, No Distention Extremity: Bilateral: Atraumatic, Normal Color And Temperature, Normal ROM Neurological/Psych: Oriented x3 ED Course And Treatment O2 Sat by Pulse Oximetry: 98 (RA) Pulse Ox Interpretation: Normal Progress Note: 11:45 Patient is resting comfortably, no acute complaints offered. Disposition - Disposition Disposition Time: 00:16 Condition: STABLE Forms: [facility] (Divehi) - Clinical Impression Clinical Impression: Alcohol abuse with uncomplicated intoxication - Scribe Statement The provider has reviewed the documentation as recorded by the Scribe (Natali Lake) Provider Attestation: All medical record entries made by the Scribe were at my direction and personally dictated by me. I have reviewed the chart and agree that the record accurately reflects my personal performance of the history, physical exam, medical decision making, and the department course for this patient. I have also personally directed, reviewed, and agree with the discharge instructions and disposition. Physician Patient Turnover Patient Signed Over To: Cleve Cho Handoff Comments: pending sobriety
[2017-07-31 03:22] VITALS: BP 126/61; PULSE 86; RESP 20; TEMP 97.9; O2SAT 96
== END 2017-07-31 00:33 | disposition home or self-care (01) ==
LOC: C.ER 16:25
DX: F10.129 Alcohol abuse with intoxication, unspecified (principal)

== ENCOUNTER 2017-08-01 19:47 | Emergency (ER) | payer MEDICARE ==
[2017-08-01 19:47] VITALS: BMI 29.6
--- NOTE | 2017-08-01 19:52 | C.PDOC ---
History Of Present Illness Patient brought to ER by ambulance for public intoxication. Patient states he needs a place to stay for the night. Denies any physical complaints. Time Seen by Provider: 08/01/17 19:51 Chief Complaint (Nursing): Substance Abuse History Per: Patient History/Exam Limitations: no limitations Onset/Duration Of Symptoms: Hrs Current Symptoms Are (Timing): Still Present Suicide/Self Injury Attempted (Context): None Modifying Factor(s): Alcohol Associated Symptoms: denies: Suicidal Thoughts, Suicidal Plan Involuntary Hold By: None Recent travel outside of the [place]: No Past Medical History Reviewed: Historical Data, Nursing Documentation, Vital Signs Vital Signs: Last Vital Signs Temp 98.6 F 08/02/17 01:13 Pulse 78 08/02/17 03:54 Resp 19 08/02/17 03:54 BP 128/78 08/02/17 03:54 Pulse Ox 95 08/02/17 03:54 - Medical History PMH: Anxiety, Asthma, Back Problems, Bipolar Disorder, Depression, Gastritis, HTN, Schizophrenia, Chronic Pain (Back Pain) Surgical History: Hernia Repair, Tonsillectomy - [facility] Procedures DETOXIFICATION SERVICES FOR SUBSTANCE ABUSE TREATMENT (12/26/15) Family History: States: No Known Family Hx - Social History Hx Tobacco Use: No Hx Alcohol Use: Yes Hx Substance Use: No - Immunization History Hx Tetanus Toxoid Vaccination: No (unk) Hx Influenza Vaccination: No (unk) Hx Pneumococcal Vaccination: No (unk) Review Of Systems Constitutional: Negative for: Fever, Chills Cardiovascular: Negative for: Chest Pain Respiratory: Negative for: Shortness of Breath Gastrointestinal: Negative for: Nausea, Vomiting, Abdominal Pain, Diarrhea Skin: Negative for: Rash Neurological: Negative for: Weakness, Numbness Psych: Negative for: Suicidal ideation Physical Exam - Physical Exam Appears: Non-toxic, No Acute Distress Skin: Warm, Dry Head: Normacephalic Eye(s): bilateral: Normal Inspection Oral Mucosa: Moist Neck: Trachea Midline, Supple Chest: Symmetrical, No Tenderness Cardiovascular: Rhythm Regular Respiratory: No Decreased Breath Sounds, No Rales, No Rhonchi, No Wheezing Gastrointestinal/Abdominal: Soft, No Tenderness, No Distention Extremity: Normal ROM, No Deformity Extremity: Bilateral: Normal Color And Temperature, Normal ROM Neurological/Psych: Oriented x3 (Awake and alert) ED Course And Treatment O2 Sat by Pulse Oximetry: 95 Pulse Ox Interpretation: Normal Reevaluation Time: 04:42 Reassessment Condition: Improved Disposition Counseled Patient/Family Regarding: Studies Performed, Diagnosis, Need For Followup - Disposition Referrals: [facility] [Outside] Disposition: HOME/ ROUTINE Disposition Time: 19:51 Condition: FAIR Instructions: Alcohol Abuse and Alcoholism (DC) Forms: [facility] (Syriac) - Clinical Impression Clinical Impression: Alcohol abuse with intoxication - Scribe Statement The provider has reviewed the documentation as recorded by the Scribjackelyn White All medical record entries made by the Augustaibjackelyn were at my direction and personally dictated by me. I have reviewed the chart and agree that the record accurately reflects my personal performance of the history, physical exam, medical decision making, and the department course for this patient. I have also personally directed, reviewed, and agree with the discharge instructions and disposition.
[2017-08-01 22:29] VITALS: O2SAT 95
[2017-08-02 01:15] VITALS: TEMP 98.6
[2017-08-02 03:55] VITALS: BP 128/78; PULSE 78; RESP 19
== END 2017-08-02 05:45 | disposition home or self-care (01) ==
LOC: C.ER 19:47
DX: F10.129 Alcohol abuse with intoxication, unspecified (principal); Y90.9 Presence of alcohol in blood, level not specified

== ENCOUNTER 2017-08-04 18:57 | Emergency (ER) | payer MEDICARE ==
[2017-08-04 18:58] VITALS: BMI 29.6
--- NOTE | 2017-08-05 02:14 | C.PDOC ---
History Of Present Illness 71 y/o homeless male presents to the ED requesting a place to sleep. Patient offers no acute complaints. Of note patient is well known to this ED with many prior visits for similar presentation. Time Seen by Provider: 08/05/17 01:32 Chief Complaint (Nursing): Substance Abuse History Per: Patient History/Exam Limitations: intoxication Suicide/Self Injury Attempted (Context): None Modifying Factor(s): Alcohol Involuntary Hold By: None Past Medical History Reviewed: Historical Data, Nursing Documentation, Vital Signs Vital Signs: Last Vital Signs Temp 98.3 F 08/05/17 05:03 Pulse 89 08/05/17 05:03 Resp 20 08/05/17 05:03 BP 123/77 08/05/17 05:03 Pulse Ox 98 08/05/17 05:03 - Medical History PMH: Anxiety, Asthma, Back Problems, Bipolar Disorder, Depression, Gastritis, HTN, Schizophrenia, Chronic Pain (Back Pain) Denies: Chronic Kidney Disease Surgical History: Hernia Repair, Tonsillectomy - [facility] Procedures DETOXIFICATION SERVICES FOR SUBSTANCE ABUSE TREATMENT (12/26/15) Family History: States: Unknown Family Hx - Social History Hx Tobacco Use: No Hx Alcohol Use: Yes Hx Substance Use: No - Immunization History Hx Tetanus Toxoid Vaccination: No (unk) Hx Influenza Vaccination: No (unk) Hx Pneumococcal Vaccination: No (unk) Review Of Systems Except As Marked, All Systems Reviewed And Found Negative. Constitutional: Negative for: Fever Respiratory: Negative for: Shortness of Breath Psych: Negative for: Suicidal ideation Physical Exam - Physical Exam Appears: No Acute Distress, Other (Poor hygiene, foul smelling, AOB) Skin: Warm, Dry Head: Atraumatic, Normacephalic Eye(s): bilateral: Normal Inspection Nose: Normal Oral Mucosa: Moist Neck: Normal ROM, Supple Chest: Symmetrical Cardiovascular: Rhythm Regular Respiratory: Normal Breath Sounds, No Rales, No Rhonchi, No Wheezing Gastrointestinal/Abdominal: Soft, No Tenderness, No Distention Extremity: Bilateral: Atraumatic, Normal Color And Temperature Neurological/Psych: Other (Somnolent but arousable) ED Course And Treatment O2 Sat by Pulse Oximetry: 97 (RA) Pulse Ox Interpretation: Normal Medical Decision Making Medical Decision Making: Impression: Alcohol intoxication Plan: Frequent neuro checks Will discharge when clinically sober Disposition - Disposition Disposition: HOME/ ROUTINE Disposition Time: 23:29 Condition: FAIR Forms: [facility] (Greek) - Clinical Impression Clinical Impression: Intoxication - Scribe Statement The provider has reviewed the documentation as recorded by the Scribe (Natali Lake) Provider Attestation: All medical record entries made by the Scribe were at my direction and personally dictated by me. I have reviewed the chart and agree that the record accurately reflects my personal performance of the history, physical exam, medical decision making, and the department course for this patient. I have also personally directed, reviewed, and agree with the discharge instructions and disposition.
[2017-08-05 05:05] VITALS: BP 123/77; PULSE 89; RESP 20; TEMP 98.3
[2017-08-05 23:30] VITALS: O2SAT 97
== END 2017-08-05 05:13 | disposition home or self-care (01) ==
LOC: C.ER 18:57
DX: F10.129 Alcohol abuse with intoxication, unspecified (principal); Y90.9 Presence of alcohol in blood, level not specified

== ENCOUNTER 2017-08-05 18:36 | Emergency (ER) | payer MEDICARE ==
[2017-08-05 18:37] VITALS: BMI 29.6
[2017-08-05 18:45] VITALS: BP 105/66; PULSE 92; RESP 18; TEMP 98.4; O2SAT 98
--- NOTE | 2017-08-05 19:07 | C.PDOC ---
History Of Present Illness 71 y/o male brought in by ambulance from [facility] due to public intoxication. No sign of acute injuries. Patient offers no physical complaints. States he just wants to sleep. Time Seen by Provider: 08/05/17 19:05 Chief Complaint (Nursing): Substance Abuse History Per: Patient History/Exam Limitations: no limitations Onset/Duration Of Symptoms: Days Current Symptoms Are (Timing): Still Present Modifying Factor(s): Alcohol Past Medical History Reviewed: Historical Data, Nursing Documentation, Vital Signs Vital Signs: Last Vital Signs Temp 98.4 F 08/05/17 18:42 Pulse 92 H 08/05/17 18:42 Resp 18 08/05/17 18:42 BP 105/66 08/05/17 18:42 Pulse Ox 98 08/05/17 19:47 - Medical History PMH: Anxiety, Asthma, Back Problems, Bipolar Disorder, Depression, Gastritis, HTN, Schizophrenia, Chronic Pain (Back Pain) Denies: Chronic Kidney Disease Surgical History: Hernia Repair, Tonsillectomy - [facility] Procedures DETOXIFICATION SERVICES FOR SUBSTANCE ABUSE TREATMENT (12/26/15) Family History: States: Unknown Family Hx - Social History Hx Tobacco Use: No Hx Alcohol Use: Yes Hx Substance Use: No - Immunization History Hx Tetanus Toxoid Vaccination: No (unk) Hx Influenza Vaccination: No (unk) Hx Pneumococcal Vaccination: No (unk) Review Of Systems Except As Marked, All Systems Reviewed And Found Negative. Constitutional: Negative for: Fever Respiratory: Negative for: Shortness of Breath Gastrointestinal: Negative for: Vomiting Psych: Positive for: Other (alcohol intoxication). Negative for: Suicidal ideation Physical Exam - Physical Exam Appears: No Acute Distress, Unkempt, Agitated, Other (foul smelling, AOB) Skin: Warm, Dry Head: Atraumatic, Normacephalic Eye(s): bilateral: Normal Inspection, PERRL, EOMI Nose: Normal Oral Mucosa: Moist Neck: Normal ROM, Supple Chest: Symmetrical Cardiovascular: Rhythm Regular Respiratory: Normal Breath Sounds, No Accessory Muscle Use Gastrointestinal/Abdominal: Soft, No Tenderness, No Distention Extremity: Bilateral: Atraumatic, Normal Color And Temperature, Normal ROM Neurological/Psych: Oriented x3, Other (Intoxicated; responds to verbal stimuli) ED Course And Treatment O2 Sat by Pulse Oximetry: 98 (RA) Pulse Ox Interpretation: Normal Medical Decision Making Medical Decision Making: Impression: typical alcohol abuse, malingering. same last night no acute issues/injuries Patient stable for d/c home Provided with resources for outpatient AA and homelessness Disposition Doctor Will See Patient In The: Office Counseled Patient/Family Regarding: Studies Performed, Diagnosis - Disposition Referrals: Alcoholics Anonymous [Outside] [facility] [Outside] [facility] [Outside] [email or web address] [Outside] Disposition: HOME/ ROUTINE Disposition Time: 19:07 Condition: GOOD Additional Instructions: seek nightly residential placement seek AA Instructions: Alcohol Use - When Is Drinking a Problem? Forms: [employer] (Bahamian) - Clinical Impression Clinical Impression: Homelessness, Malingering - Scribe Statement The provider has reviewed the documentation as recorded by the Scribe (Natali Lake) Provider Attestation: All medical record entries made by the Scribe were at my direction and personally dictated by me. I have reviewed the chart and agree that the record accurately reflects my personal performance of the history, physical exam, medical decision making, and the department course for this patient. I have also personally directed, reviewed, and agree with the discharge instructions and disposition.
== END 2017-08-05 19:56 | disposition home or self-care (01) ==
LOC: C.ER 18:36
DX: Z76.5 Malingerer [conscious simulation] (principal); Z59.0 Homelessness

== ENCOUNTER 2017-08-06 20:17 | Emergency (ER) | payer MEDICARE ==
[2017-08-06 20:17] VITALS: BMI 29.6
--- NOTE | 2017-08-06 20:55 | C.PDOC ---
History Of Present Illness Patient is a 71 y/o male, with a Hx of depression, alcoholism, and anxiety, who presents to the ED with acute EtOH intoxication. Patient has numerous similar ED presentations for the same. Admits drinking alcohol today; denies any physical complaints at this time. Time Seen by Provider: 08/06/17 20:47 Chief Complaint (Nursing): Substance Abuse History Per: Patient History/Exam Limitations: no limitations Onset/Duration Of Symptoms: Hrs Current Symptoms Are (Timing): Still Present Suicide/Self Injury Attempted (Context): None Modifying Factor(s): Alcohol Associated Symptoms: denies: Suicidal Thoughts Recent travel outside of the [place]: No Past Medical History Reviewed: Historical Data, Nursing Documentation, Vital Signs Vital Signs: Last Vital Signs Temp 98.3 F 08/06/17 20:24 Pulse 88 08/07/17 03:01 Resp 18 08/07/17 03:01 BP 101/69 08/06/17 23:43 Pulse Ox 94 L 08/07/17 03:01 - Medical History PMH: Anxiety, Asthma, Back Problems, Bipolar Disorder, Depression, Gastritis, HTN, Schizophrenia, Chronic Pain (Back Pain) Denies: Chronic Kidney Disease Surgical History: Hernia Repair, Tonsillectomy - [facility] Procedures DETOXIFICATION SERVICES FOR SUBSTANCE ABUSE TREATMENT (12/26/15) Family History: States: Unknown Family Hx - Social History Hx Tobacco Use: No Hx Alcohol Use: Yes Hx Substance Use: No - Immunization History Hx Tetanus Toxoid Vaccination: No (unk) Hx Influenza Vaccination: No (unk) Hx Pneumococcal Vaccination: No (unk) Review Of Systems Neurological: Positive for: Other (EtOH intoxication) Physical Exam - Physical Exam Appears: No Acute Distress, Other (alcohol on breath) Skin: Warm, Dry Head: Normacephalic Eye(s): bilateral: PERRL, EOMI Oral Mucosa: Moist Chest: Symmetrical Cardiovascular: Rhythm Regular, No Murmur Respiratory: No Decreased Breath Sounds, No Rales, No Rhonchi, No Wheezing Gastrointestinal/Abdominal: Soft, No Tenderness Extremity: Normal ROM (x4) Neurological/Psych: Oriented x3, Other (no focal deficits) Gait: Steady ED Course And Treatment O2 Sat by Pulse Oximetry: 96 Pulse Ox Interpretation: Normal Progress Note: Patient to be kept in ED until sobriety is reached. Reevaluation Time: 05:18 Reassessment Condition: Improved Disposition Counseled Patient/Family Regarding: Studies Performed, Diagnosis, Need For Followup - Disposition Referrals: [facility] [Outside] Disposition: HOME/ ROUTINE Disposition Time: 20:48 Condition: FAIR Instructions: Alcohol Abuse and Alcoholism (DC) Forms: [employer] [facility] (Citizen Of [place]) - Clinical Impression Clinical Impression: Alcohol abuse with intoxication - Scribe Statement The provider has reviewed the documentation as recorded by the Scribe Ly Oconnor All medical record entries made by the Scribe were at my direction and personally dictated by me. I have reviewed the chart and agree that the record accurately reflects my personal performance of the history, physical exam, medical decision making, and the department course for this patient. I have also personally directed, reviewed, and agree with the discharge instructions and disposition.
[2017-08-07 05:19] VITALS: BP 128/84; PULSE 85; RESP 16; TEMP 98; O2SAT 97
== END 2017-08-07 05:19 | disposition home or self-care (01) ==
LOC: C.ER 20:17
DX: F10.129 Alcohol abuse with intoxication, unspecified (principal); Y90.9 Presence of alcohol in blood, level not specified

== ENCOUNTER 2017-08-07 19:09 | Emergency (ER) | payer MEDICARE ==
[2017-08-07 19:10] VITALS: BMI 29.6
[2017-08-07 19:30] VITALS: RESP 20
--- NOTE | 2017-08-07 19:33 | C.PDOC ---
History Of Present Illness 71 y/o male brought to ER by ambulance for ETOH intoxication. Patient states that he is looking for a place to rest overnight. Patient denies having suicidal ideation, homicidal ideation, and active physical complaints. Of note, patient is well known to [facility] [place] [facility]. Time Seen by Provider: 08/07/17 19:33 Chief Complaint (Nursing): Substance Abuse History Per: Patient History/Exam Limitations: no limitations Past Medical History Reviewed: Historical Data, Nursing Documentation, Vital Signs Vital Signs: Last Vital Signs Temp 98.3 F 08/08/17 04:20 Pulse 72 08/08/17 04:20 Resp 20 08/08/17 04:20 BP 118/73 08/08/17 04:20 Pulse Ox 97 08/08/17 04:20 - Medical History PMH: Anxiety, Asthma, Back Problems, Bipolar Disorder, Depression, Gastritis, HTN, Schizophrenia, Chronic Pain (Back Pain) Denies: Chronic Kidney Disease Surgical History: Hernia Repair, Tonsillectomy - [facility] Procedures DETOXIFICATION SERVICES FOR SUBSTANCE ABUSE TREATMENT (12/26/15) Family History: States: Unknown Family Hx - Social History Hx Tobacco Use: No Hx Alcohol Use: Yes Hx Substance Use: No - Immunization History Hx Tetanus Toxoid Vaccination: No (unk) Hx Influenza Vaccination: No (unk) Hx Pneumococcal Vaccination: No (unk) Review Of Systems Constitutional: Negative for: Fever, Chills Psych: Negative for: Suicidal ideation Physical Exam - Physical Exam Appears: No Acute Distress Skin: Warm, Dry Head: Normacephalic Eye(s): bilateral: Normal Inspection Nose: Normal Oral Mucosa: Moist, Other (ETOH on breath) Neck: Supple Chest: Symmetrical Cardiovascular: Rhythm Regular Respiratory: No Rales, No Rhonchi, No Wheezing Neurological/Psych: Oriented x3 ED Course And Treatment O2 Sat by Pulse Oximetry: 98 (RA) Pulse Ox Interpretation: Normal Progress Note: Glucose POC ordered. Reevaluation Time: 05:03 Reassessment Condition: Improved Disposition Counseled Patient/Family Regarding: Studies Performed, Diagnosis, Need For Followup - Disposition Referrals: [facility] [Outside] Disposition: HOME/ ROUTINE Disposition Time: 19:33 Condition: FAIR Instructions: Alcohol Abuse and Alcoholism (DC) Forms: [employer] (Azeri) - Clinical Impression Clinical Impression: Alcohol abuse with intoxication - Scribe Statement The provider has reviewed the documentation as recorded by the Scribe Summen Vinod Provider Attestation: All medical record entries made by the Omar were at my direction and personally dictated by me. I have reviewed the chart and agree that the record accurately reflects my personal performance of the history, physical exam, medical decision making, and the department course for this patient. I have also personally directed, reviewed, and agree with the discharge instructions and disposition.
[2017-08-08 04:20] VITALS: BP 118/73; PULSE 72; TEMP 98.3
[2017-08-08 05:04] VITALS: O2SAT 98
== END 2017-08-08 05:30 | disposition home or self-care (01) ==
LOC: C.ER 19:09
DX: F10.129 Alcohol abuse with intoxication, unspecified (principal); F20.9 Schizophrenia, unspecified; I10 Essential (primary) hypertension

== ENCOUNTER 2017-08-08 16:39 | Emergency (ER) | payer MEDICARE ==
[2017-08-08 16:40] VITALS: BMI 29.6
[2017-08-08 16:48] VITALS: BP 96/61; PULSE 84; RESP 16; TEMP 98; O2SAT 97
--- NOTE | 2017-08-08 16:59 | C.PDOC ---
History Of Present Illness 71 y/o male brought to ED by EMS for acute ETOH intoxication and malingering. Patient is well known to ED for same and currently denies any physical complaints. Time Seen by Provider: 08/08/17 16:57 Chief Complaint (Nursing): Substance Abuse History Per: Patient, EMS History/Exam Limitations: no limitations Onset/Duration Of Symptoms: Days Current Symptoms Are (Timing): Still Present Suicide/Self Injury Attempted (Context): None Modifying Factor(s): Alcohol Past Medical History Reviewed: Historical Data, Nursing Documentation, Vital Signs Vital Signs: Last Vital Signs Temp 98 F 08/08/17 16:46 Pulse 84 08/08/17 16:46 Resp 16 08/08/17 16:46 BP 96/61 L 08/08/17 16:46 Pulse Ox 97 08/08/17 16:58 - Medical History PMH: Anxiety, Asthma, Back Problems, Bipolar Disorder, Depression, Gastritis, HTN, Schizophrenia, Chronic Pain (Back Pain) Surgical History: Hernia Repair, [facility]il[facility] - [facility] DETOXIFICATION SERVICES FOR SUBSTANCE ABUSE TREATMENT (12/26/15) Family History: States: No Known Family Hx - Social History Hx Tobacco Use: No Hx Alcohol Use: Yes Hx Substance Use: No - Immunization History Hx Tetanus Toxoid Vaccination: No (unk) Hx Influenza Vaccination: No (unk) Hx Pneumococcal Vaccination: No (unk) Review Of Systems Constitutional: Negative for: Fever, Chills Cardiovascular: Negative for: Chest Pain Respiratory: Negative for: Shortness of Breath Gastrointestinal: Negative for: Nausea, Vomiting Skin: Negative for: Rash Psych: Positive for: Other (ETOH intoxicated). Negative for: Suicidal ideation Physical Exam - Physical Exam Appears: Non-toxic, No Acute Distress, Other (Disheveled, foul smell) Skin: Warm, Dry, No Rash Head: Atraumatic, Normacephalic Eye(s): bilateral: PERRL, EOMI Oral Mucosa: Moist Neck: Normal ROM, Supple Cardiovascular: Rhythm Regular Respiratory: Normal Breath Sounds, No Rales, No Rhonchi, No Wheezing Gastrointestinal/Abdominal: Soft, No Tenderness, No Guarding, No Rebound Extremity: Normal ROM, Capillary Refill (<2 seconds) Neurological/Psych: Oriented x3, Normal Speech, Normal Cognition Gait: Steady ED Course And Treatment O2 Sat by Pulse Oximetry: 97 (RA) Pulse Ox Interpretation: Normal Medical Decision Making Medical Decision Making: malingering no acute isssues Disposition Doctor Will See Patient In The: Office Counseled Patient/Family Regarding: Studies Performed, Diagnosis - Disposition Referrals: Alcoholics Anonymous [Outside] [facility] [Outside] [facility] [Outside] [facility] [Outside] [place] [employer] [Outside] Disposition: HOME/ ROUTINE Disposition Time: 16:58 Condition: GOOD Additional Instructions: seek nightly care home placement stop alcohol abuse Follow-up with resources as outlined below. Instructions: Alcohol Abuse and Alcoholism (DC), Effects of Alcohol on Your Health Forms: [employer] (Colombian) - Clinical Impression Clinical Impression: Alcohol abuse, Homelessness - Scribe Statement The provider has reviewed the documentation as recorded by the Scribjackelyn Jo All medical record entries made by the Augustaibe were at my direction and personally dictated by me. I have reviewed the chart and agree that the record accurately reflects my personal performance of the history, physical exam, medical decision making, and the department course for this patient. I have also personally directed, reviewed, and agree with the discharge instructions and disposition.
== END 2017-08-08 17:08 | disposition home or self-care (01) ==
LOC: C.ER 16:39
DX: F10.10 Alcohol abuse, uncomplicated (principal); Y90.9 Presence of alcohol in blood, level not specified; Z59.0 Homelessness

== ENCOUNTER 2017-08-09 13:13 | Emergency (ER) | payer MEDICARE ==
[2017-08-09 13:23] VITALS: BMI 25.0
[2017-08-09 13:24] VITALS: BP 100/68; PULSE 82; RESP 18; TEMP 98; O2SAT 97
--- NOTE | 2017-08-09 13:42 | C.PDOC ---
History Of Present Illness 71-year-old male, brought to ED by EMS for acute ETOH intoxication and malingering. Patient is well known to ED for same and currently denies any physical complaints. Time Seen by Provider: 08/09/17 13:39 Chief Complaint (Nursing): Substance Abuse History/Exam Limitations: intoxication Past Medical History Reviewed: Historical Data, Nursing Documentation, Vital Signs Vital Signs: Last Vital Signs Temp 98 F 08/09/17 13:20 Pulse 82 08/09/17 13:20 Resp 18 08/09/17 13:20 BP 100/68 08/09/17 13:20 Pulse Ox 97 08/09/17 18:22 - Medical History PMH: Anxiety, Asthma, Back Problems, Bipolar Disorder, Depression, Gastritis, HTN, Schizophrenia, Chronic Pain (Back Pain) Denies: Chronic Kidney Disease Surgical History: Hernia Repair, Tonsillectomy - [facility] DETOXIFICATION SERVICES FOR SUBSTANCE ABUSE TREATMENT (12/26/15) Family History: States: No Known Family Hx - Social History Hx Tobacco Use: No Hx Alcohol Use: Yes Hx Substance Use: No - Immunization History Hx Tetanus Toxoid Vaccination: No (unk) Hx Influenza Vaccination: No (unk) Hx Pneumococcal Vaccination: No (unk) Review Of Systems Review Of Systems: ROS cannot be obtained secondary to pt's inabilty to answer questions. (intoxication) Physical Exam - Physical Exam Appears: Non-toxic, No Acute Distress, Other (disheveled, foul smelling) Skin: Warm, Dry, No Diaphoretic, No Rash, No Jaundice Head: Normacephalic Neck: Normal ROM Extremity: Normal ROM, Capillary Refill (<2 seconds), No Deformity, No Swelling Neurological/Psych: Other (intoxicated, etoh on breath) Gait: Steady ED Course And Treatment O2 Sat by Pulse Oximetry: 97 Medical Decision Making Medical Decision Making: homeless, malingering no acute issues no sig changes from yestereday's eval. Disposition Doctor Will See Patient In The: Office Counseled Patient/Family Regarding: Studies Performed, Diagnosis - Disposition Referrals: Alcoholics Anonymous [Outside] Community Mental [facility] [Outside] [facility] [Outside] [facility] [[facility]] Disposition: HOME/ ROUTINE Disposition Time: 13:42 Condition: GOOD Forms: General Discharge Instructions, [facility] (Guyanese) - Clinical Impression Clinical Impression: Homelessness - Scribe Statement The provider has reviewed the documentation as recorded by the Scribe (Liseth Bañuelos) Provider Attestation: All medical record entries made by the Scribe were at my direction and personally dictated by me. I have reviewed the chart and agree that the record accurately reflects my personal performance of the history, physical exam, medical decision making, and the department course for this patient. I have also personally directed, reviewed, and agree with the discharge instructions and disposition.
== END 2017-08-09 14:15 | disposition home or self-care (01) ==
LOC: C.ER 13:13
DX: Z59.0 Homelessness (principal); F20.9 Schizophrenia, unspecified; I10 Essential (primary) hypertension

== ENCOUNTER 2017-08-09 17:02 | Emergency (ER) | payer MEDICARE ==
[2017-08-09 17:02] VITALS: BMI 25.0
--- NOTE | 2017-08-09 17:10 | C.PDOC ---
History Of Present Illness 71 year old male is brought to the ED by EMS for evaluation after he was found publicly malingering [employer]. Patient was evaluated and discharged from this ED around 3.5 hours ago. Patient has no complaints at this time. Chief Complaint (Nursing): Substance Abuse Past Medical History Reviewed: Historical Data, Nursing Documentation, Vital Signs Vital Signs: Last Vital Signs Temp 98.7 F 08/09/17 17:17 Pulse 82 08/09/17 17:17 Resp 18 08/09/17 17:17 BP 156/78 H 08/09/17 17:17 Pulse Ox 98 08/09/17 17:17 - Medical History PMH: Anxiety, Asthma, Back Problems, Bipolar Disorder, Depression, Gastritis, HTN, Schizophrenia, Chronic Pain (Back Pain) Denies: Chronic Kidney Disease Surgical History: Hernia Repair, Tonsillectomy - [facility] DETOXIFICATION SERVICES FOR SUBSTANCE ABUSE TREATMENT (12/26/15) Family History: States: Unknown Family Hx - Social History Hx Tobacco Use: No Hx Alcohol Use: Yes Hx Substance Use: No - Immunization History Hx Tetanus Toxoid Vaccination: No (unk) Hx Influenza Vaccination: No (unk) Hx Pneumococcal Vaccination: No (unk) Review Of Systems Psych: Negative for: Suicidal ideation Physical Exam - Physical Exam Appears: Non-toxic, No Acute Distress Skin: Normal Color, Warm, Dry Head: Atraumatic, Normacephalic Eye(s): bilateral: Normal Inspection Oral Mucosa: Moist Neck: Supple Chest: Symmetrical, No Deformity, No Tenderness Cardiovascular: Rhythm Regular, No Murmur Respiratory: Normal Breath Sounds, No Rales, No Rhonchi, No Wheezing Extremity: Normal ROM, Capillary Refill (less than 2 seconds ) Neurological/Psych: Oriented x3, Normal Speech, Normal Cognition ED Course And Treatment O2 Sat by Pulse Oximetry: 98 (on RA) Pulse Ox Interpretation: Normal Medical Decision Making Medical Decision Making: malingering. Discharged about 3.5 hours ago for same. no acute issues stable gait not intoxicated. Disposition Doctor Will See Patient In The: Office Counseled Patient/Family Regarding: Studies Performed, Diagnosis - Disposition Referrals: Alcoholics Anonymous [Outside] [facility] [Outside] [facility] [Outside] [place] [employer] [Outside] Disposition: HOME/ ROUTINE Disposition Time: 17:10 Condition: GOOD Additional Instructions: seek nightly long-term placement Seek AA Seek outpatient psych follow-up. Instructions: Alcohol Use - When Is Drinking a Problem? Forms: [employer] (Mosotho) - Clinical Impression Clinical Impression: Homelessness - Scribe Statement The provider has reviewed the documentation as recorded by the Scribe (Chrissy Leiva) Provider Attestation: All medical record entries made by the Scribe were at my direction and personally dictated by me. I have reviewed the chart and agree that the record accurately reflects my personal performance of the history, physical exam, medical decision making, and the department course for this patient. I have also personally directed, reviewed, and agree with the discharge instructions and disposition.
[2017-08-09 17:18] VITALS: BP 156/78; PULSE 82; RESP 18; TEMP 98.7; O2SAT 98
== END 2017-08-09 17:24 | disposition home or self-care (01) ==
LOC: C.ER 17:02
DX: Z59.0 Homelessness (principal); F20.9 Schizophrenia, unspecified; I10 Essential (primary) hypertension

== ENCOUNTER 2017-08-09 18:31 | Emergency (ER) | payer MEDICARE ==
[2017-08-09 18:31] VITALS: BMI 25.0
[2017-08-09 18:40] VITALS: BP 104/63; PULSE 89; RESP 18; TEMP 98.7; O2SAT 96
--- NOTE | 2017-08-09 18:45 | C.PDOC ---
History Of Present Illness 71 year old male is brought to the ED by EMS for evaluation after he was found in an apartment doorway [employer]. Patient does not have any complaints at this time. Current visit is patient's third ED visit today. Time Seen by Provider: 08/09/17 18:44 Chief Complaint (Nursing): Substance Abuse History Per: Patient, EMS History/Exam Limitations: no limitations Additional History Per: Patient Past Medical History Reviewed: Historical Data, Nursing Documentation, Vital Signs Vital Signs: Last Vital Signs Temp 98.7 F 08/09/17 18:39 Pulse 89 08/09/17 18:39 Resp 18 08/09/17 18:39 BP 104/63 08/09/17 18:39 Pulse Ox 96 08/09/17 22:43 - Medical History PMH: Anxiety, Asthma, Back Problems, Bipolar Disorder, Depression, Gastritis, HTN, Schizophrenia, Chronic Pain (Back Pain) Denies: Chronic Kidney Disease Surgical History: Hernia Repair, Tonsillectomy - [facility] Procedures DETOXIFICATION SERVICES FOR SUBSTANCE ABUSE TREATMENT (12/26/15) Family History: States: Unknown Family Hx - Social History Hx Tobacco Use: No Hx Alcohol Use: Yes Hx Substance Use: No - Immunization History Hx Tetanus Toxoid Vaccination: No (unk) Hx Influenza Vaccination: No (unk) Hx Pneumococcal Vaccination: No (unk) Review Of Systems Psych: Negative for: Suicidal ideation Physical Exam - Physical Exam Appears: Non-toxic, No Acute Distress Skin: Normal Color, Warm, Dry Head: Atraumatic, Normacephalic Eye(s): bilateral: Normal Inspection Oral Mucosa: Moist Neck: Supple Chest: Symmetrical, No Deformity, No Tenderness Cardiovascular: Rhythm Regular, No Murmur Respiratory: Normal Breath Sounds, No Rales, No Rhonchi, No Wheezing Extremity: Normal ROM, Capillary Refill (less than 2 seconds ) Neurological/Psych: Oriented x3, Normal Speech, Normal Cognition ED Course And Treatment O2 Sat by Pulse Oximetry: 96 (on RA) Pulse Ox Interpretation: Normal Medical Decision Making Medical Decision Making: sleeping in an apt doorway, NOT intoxicated, 3rd ED eval today for same. no acute issues since d/c 1:20 ago Disposition Doctor Will See Patient In The: Office Counseled Patient/Family Regarding: Studies Performed, Diagnosis - Disposition Referrals: Alcoholics Anonymous [Outside] [facility] [Outside] [place] [facility] [place] [Outside] [facility] [Outside] [facility] [Outside] Disposition: HOME/ ROUTINE Disposition Time: 18:45 Condition: GOOD Forms: General Discharge Instructions, [facility] (Khmer) - Clinical Impression Clinical Impression: Homelessness - Scribe Statement The provider has reviewed the documentation as recorded by the Scribe (Chrissy Leiva) Provider Attestation: All medical record entries made by the Scribe were at my direction and personally dictated by me. I have reviewed the chart and agree that the record accurately reflects my personal performance of the history, physical exam, medical decision making, and the department course for this patient. I have also personally directed, reviewed, and agree with the discharge instructions and disposition.
== END 2017-08-09 19:08 | disposition home or self-care (01) ==
LOC: C.ER 18:31
DX: Z59.0 Homelessness (principal); F20.9 Schizophrenia, unspecified; I10 Essential (primary) hypertension

== ENCOUNTER 2017-08-14 19:02 | Emergency (ER) | payer MEDICARE ==
[2017-08-14 19:03] VITALS: BMI 25.0
[2017-08-14 19:13] VITALS: TEMP 98.5
--- NOTE | 2017-08-14 19:18 | C.PDOC ---
History Of Present Illness Patient brought in by EMS for after being found intoxicated in public. Patient denies any physical complaints at this time. Time Seen by Provider: 08/14/17 19:16 Chief Complaint (Nursing): Substance Abuse History Per: Patient History/Exam Limitations: no limitations Onset/Duration Of Symptoms: Hrs Current Symptoms Are (Timing): Still Present Suicide/Self Injury Attempted (Context): None Modifying Factor(s): Alcohol Severity: None Pain Scale Rating Of: 0 Associated Symptoms: denies: Depression, Suicidal Thoughts Involuntary Hold By: None Recent travel outside of the [place]: No Past Medical History Reviewed: Historical Data, Nursing Documentation, Vital Signs Vital Signs: Last Vital Signs Temp 98.5 F 08/14/17 19:13 Pulse 76 08/15/17 04:52 Resp 19 08/15/17 04:52 BP 105/62 08/15/17 04:52 Pulse Ox 96 08/15/17 04:52 - Medical History PMH: Anxiety, Asthma, Back Problems, Bipolar Disorder, Depression, Gastritis, HTN, Schizophrenia, Chronic Pain (Back Pain) Surgical History: Hernia Repair, Tonsillectomy - [employer] Procedures DETOXIFICATION SERVICES FOR SUBSTANCE ABUSE TREATMENT (12/26/15) Family History: States: Unknown Family Hx - Social History Hx Tobacco Use: No Hx Alcohol Use: Yes Hx Substance Use: No - Immunization History Hx Tetanus Toxoid Vaccination: No (unk) Hx Influenza Vaccination: No (unk) Hx Pneumococcal Vaccination: No (unk) Review Of Systems Constitutional: Negative for: Fever, Chills Respiratory: Negative for: Cough Gastrointestinal: Negative for: Nausea, Vomiting Physical Exam - Physical Exam Appears: Non-toxic, Other (ETOH on breath) Skin: Warm, Dry Head: Normacephalic Oral Mucosa: Moist Chest: Symmetrical, No Tenderness Cardiovascular: Rhythm Regular Respiratory: No Rales, No Rhonchi, No Wheezing Gastrointestinal/Abdominal: Soft, No Tenderness Neurological/Psych: Oriented x3 ED Course And Treatment O2 Sat by Pulse Oximetry: 97 (Room air) Pulse Ox Interpretation: Normal Reevaluation Time: 04:53 Reassessment Condition: Improved Disposition Counseled Patient/Family Regarding: Studies Performed, Diagnosis, Need For Followup - Disposition Referrals: [facility] [Outside] Disposition: HOME/ ROUTINE Disposition Time: 19:17 Condition: FAIR Instructions: Alcohol Abuse and Alcoholism (DC) Forms: [employer] (Indonesian) - Clinical Impression Clinical Impression: Alcoholism /alcohol abuse, Alcohol abuse with intoxication - Scribe Statement The provider has reviewed the documentation as recorded by the Scribjackelyn Huang All medical record entries made by the Scribe were at my direction and personally dictated by me. I have reviewed the chart and agree that the record accurately reflects my personal performance of the history, physical exam, medical decision making, and the department course for this patient. I have also personally directed, reviewed, and agree with the discharge instructions and disposition.
[2017-08-14 21:24] VITALS: RESP 19
[2017-08-15 04:53] VITALS: BP 105/62; PULSE 76
[2017-08-15 04:54] VITALS: O2SAT 97
== END 2017-08-15 05:20 | disposition home or self-care (01) ==
LOC: C.ER 19:02
DX: F10.229 Alcohol dependence with intoxication, unspecified (principal)

== ENCOUNTER 2017-08-15 16:35 | Emergency (ER) | payer MEDICARE ==
[2017-08-15 16:35] VITALS: BMI 25.0
--- NOTE | 2017-08-15 17:04 | C.PDOC ---
History Of Present Illness 71 y/o male brought to the ED by ambulance for public intoxication. Patient was found in the street and brought in for evaluation. No signs of acute injury or trauma. Patient offers no complaints. Time Seen by Provider: 08/15/17 16:58 Chief Complaint (Nursing): Substance Abuse History Per: Patient History/Exam Limitations: no limitations Onset/Duration Of Symptoms: Hrs Modifying Factor(s): Alcohol Additional History Per: EMS Past Medical History Reviewed: Historical Data, Nursing Documentation, Vital Signs Vital Signs: Last Vital Signs Temp 97.7 F 08/15/17 17:11 Pulse 89 08/15/17 17:11 Resp 18 08/15/17 17:11 BP 109/72 08/15/17 17:11 Pulse Ox 100 08/15/17 17:11 - Medical History PMH: Anxiety, Asthma, Back Problems, Bipolar Disorder, Depression, Gastritis, HTN, Schizophrenia, Chronic Pain (Back Pain) Denies: Chronic Kidney Disease Surgical History: Hernia Repair, Tonsillectomy - [facility] Procedures DETOXIFICATION SERVICES FOR SUBSTANCE ABUSE TREATMENT (12/26/15) Family History: States: Unknown Family Hx - Social History Hx Tobacco Use: No Hx Alcohol Use: Yes Hx Substance Use: No - Immunization History Hx Tetanus Toxoid Vaccination: No (unk) Hx Influenza Vaccination: No (unk) Hx Pneumococcal Vaccination: No (unk) Review Of Systems Except As Marked, All Systems Reviewed And Found Negative. Psych: Positive for: Other (alcohol intoxication) Physical Exam - Physical Exam Appears: No Acute Distress, Unkempt Skin: Warm, Dry Head: Atraumatic, Normacephalic Eye(s): bilateral: Normal Inspection, PERRL, EOMI Oral Mucosa: Moist Neck: Normal ROM, Supple Chest: Symmetrical Cardiovascular: Rhythm Regular, No Murmur Respiratory: Normal Breath Sounds, No Accessory Muscle Use Gastrointestinal/Abdominal: Soft, No Tenderness, No Distention Extremity: Bilateral: Atraumatic, Normal Color And Temperature, Normal ROM Pulses: Left Dorsalis Pedis: Normal, Right Dorsalis Pedis: Normal Neurological/Psych: Oriented x3, Other ((+) AOB, responds appropriately to questions) Gait: Steady Medical Decision Making Medical Decision Making: Impression: malingering no acute issues no sig intox now baseline gait. Disposition Doctor Will See Patient In The: Office Counseled Patient/Family Regarding: Studies Performed, Diagnosis - Disposition Referrals: Alcoholics Anonymous [Outside] [facility] [Outside] [facility] [Outside] Disposition: HOME/ ROUTINE Disposition Time: 17:04 Condition: GOOD Additional Instructions: seek nightly jail placement seek AA Seek outpatient psych follow-up for your psych issues. Instructions: Alcohol Abuse and Alcoholism (DC) Forms: [employer] (Cook Islander) - POA Present On Arrival: None - Clinical Impression Clinical Impression: Homelessness, Alcohol abuse, Malingering - Scribe Statement The provider has reviewed the documentation as recorded by the Scribe (Natali Lake) Provider Attestation: All medical record entries made by the Scribe were at my direction and personally dictated by me. I have reviewed the chart and agree that the record accurately reflects my personal performance of the history, physical exam, medical decision making, and the department course for this patient. I have also personally directed, reviewed, and agree with the discharge instructions and disposition.
[2017-08-15 17:33] VITALS: BP 109/72; PULSE 89; RESP 18; TEMP 97.7; O2SAT 100
== END 2017-08-15 18:40 | disposition home or self-care (01) ==
LOC: C.ER 16:35
DX: Z76.5 Malingerer [conscious simulation] (principal); F10.10 Alcohol abuse, uncomplicated; Y90.9 Presence of alcohol in blood, level not specified; Z59.0 Homelessness

== ENCOUNTER 2017-08-17 13:20 | Emergency (ER) | payer MEDICARE ==
[2017-08-17 13:21] VITALS: BMI 25.0
--- NOTE | 2017-08-17 13:30 | C.PDOC ---
History Of Present Illness 71yo male, brought to ER for evaluation after patient was discovered to be publicly intoxicated. Patient well known to provider and staff for multiple visits with similar presentation. Denies any fever, chills, chest pain, shortness of breath. Patient has no medical complaints. Time Seen by Provider: 08/17/17 13:28 Chief Complaint (Nursing): Substance Abuse History Per: Patient Onset/Duration Of Symptoms: Persistent Modifying Factor(s): Alcohol Past Medical History Reviewed: Historical Data, Nursing Documentation, Vital Signs Vital Signs: Last Vital Signs Temp 98.7 F 08/17/17 13:28 Pulse 86 08/17/17 13:28 Resp 18 08/17/17 13:28 BP 92/51 L 08/17/17 13:28 Pulse Ox 98 08/17/17 13:28 - Medical History PMH: Anxiety, Asthma, Back Problems, Bipolar Disorder, Depression, Gastritis, HTN, Schizophrenia, Chronic Pain (Back Pain) Denies: Chronic Kidney Disease Surgical History: Hernia Repair, Tonsillectomy - [facility] Procedures DETOXIFICATION SERVICES FOR SUBSTANCE ABUSE TREATMENT (12/26/15) Family History: States: Unknown Family Hx - Social History Hx Tobacco Use: No Hx Alcohol Use: Yes Hx Substance Use: No - Immunization History Hx Tetanus Toxoid Vaccination: No (unk) Hx Influenza Vaccination: No (unk) Hx Pneumococcal Vaccination: No (unk) Review Of Systems Except As Marked, All Systems Reviewed And Found Negative. Constitutional: Negative for: Fever, Chills Cardiovascular: Negative for: Chest Pain Respiratory: Negative for: Shortness of Breath Gastrointestinal: Negative for: Abdominal Pain Psych: Positive for: Other (alcohol use) Physical Exam - Physical Exam Appears: Non-toxic, No Acute Distress Skin: Normal Color, Warm, Dry Head: Atraumatic, Normacephalic Eye(s): bilateral: Normal Inspection, PERRL Neck: Normal ROM, Supple Chest: Symmetrical Cardiovascular: Rhythm Regular Respiratory: Normal Breath Sounds Gastrointestinal/Abdominal: Normal Exam, Soft, No Tenderness Back: Normal Inspection Extremity: Normal ROM, No Pedal Edema Neurological/Psych: Oriented x3 Gait: Steady ED Course And Treatment O2 Sat by Pulse Oximetry: 98 (RA) Pulse Ox Interpretation: Normal Medical Decision Making Medical Decision Making: sleeping outdoor, many prior evals for same. not intoxicated stable/baseline gait. no acute issues defer w/u Disposition Doctor Will See Patient In The: Office Counseled Patient/Family Regarding: Studies Performed, Diagnosis - Disposition Referrals: Alcoholics Anonymous [Outside] [employer] [facility] [Outside] [facility] [Outside] [facility] [Outside] [place] [employer] [Outside] Disposition: HOME/ ROUTINE Disposition Time: 13:29 Condition: GOOD Additional Instructions: seek nightly halfway placement seek AA Seek outpatient psych services as needed. Instructions: Alcohol Use - When Is Drinking a Problem? Forms: [employer] (Sami) - Clinical Impression Clinical Impression: Malingering, Homelessness - Scribe Statement The provider has reviewed the documentation as recorded by the Scribe (Sirena Ramsey) Provider Attestation: All medical record entries made by the Scribe were at my direction and personally dictated by me. I have reviewed the chart and agree that the record accurately reflects my personal performance of the history, physical exam, medical decision making, and the department course for this patient. I have also personally directed, reviewed, and agree with the discharge instructions and disposition.
[2017-08-17 15:58] VITALS: BP 110/62; PULSE 81; RESP 16; TEMP 98.2; O2SAT 99
== END 2017-08-17 15:57 | disposition home or self-care (01) ==
LOC: C.ER 13:20
DX: Z76.5 Malingerer [conscious simulation] (principal); Z59.0 Homelessness

== ENCOUNTER 2017-08-18 17:56 | Emergency (ER) | payer MEDICARE ==
[2017-08-18 17:56] VITALS: BMI 25.0
--- NOTE | 2017-08-18 19:21 | C.PDOC ---
History Of Present Illness Patient brought in via EMS after being found intoxicated in public. Denies physical complaints at this time. Time Seen by Provider: 08/18/17 19:20 Chief Complaint (Nursing): Substance Abuse History Per: Patient, EMS History/Exam Limitations: no limitations Onset/Duration Of Symptoms: Hrs Current Symptoms Are (Timing): Still Present Suicide/Self Injury Attempted (Context): None Modifying Factor(s): Alcohol Severity: None Pain Scale Rating Of: 0 Associated Symptoms: denies: Depression, Suicidal Thoughts Involuntary Hold By: None Recent travel outside of the [place]: No Past Medical History Reviewed: Historical Data, Nursing Documentation, Vital Signs Vital Signs: Last Vital Signs Temp 98.4 F 08/18/17 18:17 Pulse 72 08/18/17 18:17 Resp 18 08/18/17 18:17 BP 143/77 08/18/17 18:17 Pulse Ox 98 08/18/17 19:24 - Medical History PMH: Anxiety, Asthma, Back Problems, Bipolar Disorder, Depression, Gastritis, HTN, Schizophrenia, Chronic Pain (Back Pain) Surgical History: Hernia Repair, Tonsillectomy - [facility] Procedures DETOXIFICATION SERVICES FOR SUBSTANCE ABUSE TREATMENT (12/26/15) Family History: States: No Known Family Hx - Social History Hx Tobacco Use: No Hx Alcohol Use: Yes Hx Substance Use: No - Immunization History Hx Tetanus Toxoid Vaccination: No (unk) Hx Influenza Vaccination: No (unk) Hx Pneumococcal Vaccination: No (unk) Review Of Systems Constitutional: Negative for: Fever, Chills Gastrointestinal: Negative for: Nausea, Vomiting, Abdominal Pain Physical Exam - Physical Exam Appears: Non-toxic, Other (ETOH on breath) Skin: Warm, Dry Head: Normacephalic Oral Mucosa: Moist Chest: Symmetrical, No Tenderness Cardiovascular: Rhythm Regular Respiratory: No Rales, No Rhonchi, No Wheezing Gastrointestinal/Abdominal: Soft, No Tenderness Neurological/Psych: Oriented x3 ED Course And Treatment O2 Sat by Pulse Oximetry: 98 (Room air) Pulse Ox Interpretation: Normal Progress Note: pt clinically sober Reevaluation Time: 21:09 Reassessment Condition: Improved Disposition Counseled Patient/Family Regarding: Studies Performed, Diagnosis, Need For Followup - Disposition Referrals: [facility] [Outside] Disposition: HOME/ ROUTINE Disposition Time: 19:21 Condition: FAIR Instructions: Alcohol Abuse and Alcoholism (DC) Forms: [employer] (Hong Konger) - Clinical Impression Clinical Impression: Alcohol abuse, Alcohol intoxication - Scribe Statement The provider has reviewed the documentation as recorded by the Scribjackelyn Huang All medical record entries made by the Scribe were at my direction and personally dictated by me. I have reviewed the chart and agree that the record accurately reflects my personal performance of the history, physical exam, medical decision making, and the department course for this patient. I have also personally directed, reviewed, and agree with the discharge instructions and disposition.
[2017-08-18 21:27] VITALS: BP 139/75; PULSE 81; RESP 20; TEMP 98; O2SAT 99
== END 2017-08-18 21:29 | disposition home or self-care (01) ==
LOC: C.ER 17:56
DX: F10.129 Alcohol abuse with intoxication, unspecified (principal)

== ENCOUNTER 2017-08-19 21:03 | Emergency (ER) | payer MEDICARE ==
[2017-08-19 21:04] VITALS: BMI 25.0
--- NOTE | 2017-08-19 21:10 | C.PDOC ---
History Of Present Illness 71 year old male presents to the ED intoxicated. Patient has multiple prior visits to the ED with the same complaints. Patient denies SI/HI, hallucinations , CP, SOB, abdominal pain. Time Seen by Provider: 08/19/17 21:09 Chief Complaint (Nursing): Substance Abuse History Per: Patient History/Exam Limitations: intoxication Onset/Duration Of Symptoms: Hrs Current Symptoms Are (Timing): Still Present Suicide/Self Injury Attempted (Context): None Modifying Factor(s): Alcohol Associated Symptoms: denies: Depression, Suicidal Thoughts, Suicidal Plan Recent travel outside of the [place]: No Additional History Per: Patient Past Medical History Reviewed: Historical Data, Nursing Documentation, Vital Signs Vital Signs: Last Vital Signs Temp 98.1 F 08/20/17 04:46 Pulse 90 08/20/17 04:46 Resp 20 08/20/17 04:46 BP 136/88 08/20/17 04:46 Pulse Ox 98 08/20/17 04:46 - Medical History PMH: Anxiety, Asthma, Back Problems, Bipolar Disorder, Depression, Gastritis, HTN, Schizophrenia, Chronic Pain (Back Pain) Denies: Chronic Kidney Disease Surgical History: Hernia Repair, Tonsillectomy - [facility] Procedures DETOXIFICATION SERVICES FOR SUBSTANCE ABUSE TREATMENT (12/26/15) Family History: States: Unknown Family Hx - Social History Hx Tobacco Use: No Hx Alcohol Use: Yes Hx Substance Use: No - Immunization History Hx Tetanus Toxoid Vaccination: No (unk) Hx Influenza Vaccination: No (unk) Hx Pneumococcal Vaccination: No (unk) Review Of Systems Constitutional: Negative for: Fever, Chills Cardiovascular: Negative for: Chest Pain Respiratory: Negative for: Shortness of Breath Gastrointestinal: Negative for: Abdominal Pain Psych: Negative for: Depression, Suicidal ideation Physical Exam - Physical Exam Appears: Non-toxic, No Acute Distress Skin: Warm, Dry Head: Normacephalic Eye(s): bilateral: Normal Inspection Nose: No Discharge Oral Mucosa: Moist Neck: Supple Chest: Symmetrical Cardiovascular: Rhythm Regular, No Murmur Respiratory: No Rales, No Rhonchi, No Wheezing Gastrointestinal/Abdominal: Soft, No Tenderness, No Guarding, No Rebound Extremity: No Tenderness, No Swelling Extremity: Bilateral: Normal Color And Temperature, Normal ROM Neurological/Psych: Oriented x3, Normal Motor, Normal Sensation Gait: Unable To Assess ED Course And Treatment Pulse Ox Interpretation: Normal Disposition Counseled Patient/Family Regarding: Studies Performed, Diagnosis - Disposition Referrals: [facility] at [facility] [Outside] Disposition: HOME/ ROUTINE Disposition Time: 22:00 Condition: FAIR Instructions: Alcohol Abuse and Alcoholism (DC) Forms: [facility] (Barbadian) - Clinical Impression Clinical Impression: Alcohol abuse with intoxication - Scribe Statement The provider has reviewed the documentation as recorded by the Scribe Eulogio Sanchez All medical record entries made by the Scribe were at my direction and personally dictated by me. I have reviewed the chart and agree that the record accurately reflects my personal performance of the history, physical exam, medical decision making, and the department course for this patient. I have also personally directed, reviewed, and agree with the discharge instructions and disposition.
--- NOTE | 2017-08-19 21:11 | C.PDOC ---
Time Seen by Provider: 08/19/17 21:09 Chief Complaint (Nursing): Substance Abuse Past Medical History - Medical History PMH: Anxiety, Asthma, Back Problems, Bipolar Disorder, Depression, Gastritis, HTN, Schizophrenia, Chronic Pain (Back Pain) Denies: Chronic Kidney Disease Surgical History: Hernia Repair, Tonsillectomy - [facility] Procedures DETOXIFICATION SERVICES FOR SUBSTANCE ABUSE TREATMENT (12/26/15) Family History: States: Unknown Family Hx - Social History Hx Tobacco Use: No Hx Alcohol Use: Yes Hx Substance Use: No - Immunization History Hx Tetanus Toxoid Vaccination: No (unk) Hx Influenza Vaccination: No (unk) Hx Pneumococcal Vaccination: No (unk) Disposition Counseled Patient/Family Regarding: Studies Performed, Diagnosis, Need For Followup - Disposition Referrals: [facility] at [facility] [Outside] Disposition: HOME/ ROUTINE Disposition Time: 21:09 Instructions: Alcohol Abuse and Alcoholism (DC) - Clinical Impression Clinical Impression: Alcohol abuse with intoxication
[2017-08-19 21:28] VITALS: RESP 20; O2SAT 98
[2017-08-20 04:49] VITALS: BP 136/88; PULSE 90; TEMP 98.1
== END 2017-08-20 05:25 | disposition home or self-care (01) ==
LOC: C.ER 21:03
DX: F10.129 Alcohol abuse with intoxication, unspecified (principal); Y90.9 Presence of alcohol in blood, level not specified

== ENCOUNTER 2017-08-20 13:36 | Emergency (ER) | payer MEDICARE ==
[2017-08-20 13:36] VITALS: BMI 25.0
--- NOTE | 2017-08-20 13:47 | C.PDOC ---
History Of Present Illness 71 year old male presents to the ED with acute alcohol intoxication for an unknown duration. Patient is familiar to this ED and has had many prior visits with similar symptoms. Patient admits to drinking earlier today and has no complaints at this time. Time Seen by Provider: 08/20/17 13:43 Chief Complaint (Nursing): Substance Abuse History Per: Patient History/Exam Limitations: intoxication Onset/Duration Of Symptoms: Hrs Current Symptoms Are (Timing): Still Present Suicide/Self Injury Attempted (Context): None Modifying Factor(s): Alcohol Associated Symptoms: denies: Suicidal Thoughts, Suicidal Plan Involuntary Hold By: None Recent travel outside of the [place]: No Additional History Per: Patient Past Medical History Reviewed: Historical Data, Nursing Documentation, Vital Signs Vital Signs: Last Vital Signs Temp 98.1 F 08/20/17 20:30 Pulse 83 08/20/17 20:30 Resp 18 08/20/17 20:30 BP 148/87 08/20/17 20:30 Pulse Ox 96 08/20/17 20:30 - Medical History PMH: Anxiety, Asthma, Back Problems, Bipolar Disorder, Depression, Gastritis, HTN, Schizophrenia, Chronic Pain (Back Pain) Denies: Chronic Kidney Disease Surgical History: Hernia Repair, Tonsillectomy - [facility] Procedures DETOXIFICATION SERVICES FOR SUBSTANCE ABUSE TREATMENT (12/26/15) Family History: States: Unknown Family Hx - Social History Hx Tobacco Use: No Hx Alcohol Use: Yes Hx Substance Use: No - Immunization History Hx Tetanus Toxoid Vaccination: No (unk) Hx Influenza Vaccination: No (unk) Hx Pneumococcal Vaccination: No (unk) Review Of Systems Psych: Positive for: Other (alcohol intoxication ). Negative for: Suicidal ideation Physical Exam - Physical Exam Appears: Non-toxic, No Acute Distress, Other (visibly intoxicated ) Skin: Normal Color, Warm, Dry Head: Atraumatic, Normacephalic Eye(s): bilateral: Normal Inspection Oral Mucosa: Moist, Other (alcohol on breath ) Neck: Supple Chest: Symmetrical, No Deformity, No Tenderness Cardiovascular: Rhythm Regular, No Murmur Respiratory: Normal Breath Sounds, No Rales, No Rhonchi, No Wheezing Extremity: Normal ROM, Capillary Refill (less than 2 seconds ) Neurological/Psych: Other (arousable to touch and verbal stimuli ) ED Course And Treatment Reevaluation Time: 20:43 Reassessment Condition: Improved (Patient awake and ambulatory in ED with normal gait using a cane.) Disposition - Disposition Disposition: HOME/ ROUTINE Disposition Time: 20:44 Condition: IMPROVED Forms: [facility] (Lao) - Clinical Impression Clinical Impression: Alcohol abuse with intoxication - Scribe Statement The provider has reviewed the documentation as recorded by the Scribe (Chrissy Leiva) Provider Attestation: All medical record entries made by the Scribe were at my direction and personally dictated by me. I have reviewed the chart and agree that the record accurately reflects my personal performance of the history, physical exam, medical decision making, and the department course for this patient. I have also personally directed, reviewed, and agree with the discharge instructions and disposition.
[2017-08-20 17:16] VITALS: RESP 18; O2SAT 96
[2017-08-20 20:30] VITALS: BP 148/87; PULSE 83; TEMP 98.1
== END 2017-08-20 20:40 | disposition home or self-care (01) ==
LOC: C.ER 13:36
DX: F10.129 Alcohol abuse with intoxication, unspecified (principal)

== ENCOUNTER 2017-08-21 15:56 | Emergency (ER) | payer MEDICARE ==
[2017-08-21 15:57] VITALS: BMI 25.0
[2017-08-21 16:09] VITALS: O2SAT 98
--- NOTE | 2017-08-21 16:54 | C.PDOC ---
History Of Present Illness Patient brought to ED by EMS for Acute Etoh intoxication. Patient is a well known ED patient with history of ETOH abuse. Patient is homeless and at ED is requesting juice to drink and denies any physical complaints at this time. Time Seen by Provider: 08/21/17 16:07 Chief Complaint (Nursing): Substance Abuse History Per: Patient History/Exam Limitations: no limitations Onset/Duration Of Symptoms: Days Current Symptoms Are (Timing): Still Present Suicide/Self Injury Attempted (Context): None Modifying Factor(s): Alcohol Associated Symptoms: denies: Suicidal Thoughts Past Medical History Reviewed: Historical Data, Nursing Documentation, Vital Signs Vital Signs: Last Vital Signs Temp 98 F 08/21/17 17:40 Pulse 78 08/21/17 17:40 Resp 18 08/21/17 17:40 BP 126/75 08/21/17 17:40 Pulse Ox 98 08/21/17 17:40 - Medical History PMH: Anxiety, Asthma, Back Problems, Bipolar Disorder, Depression, Gastritis, HTN, Schizophrenia, Chronic Pain (Back Pain) Surgical History: Hernia Repair, Tonsillectomy - [facility] Procedures DETOXIFICATION SERVICES FOR SUBSTANCE ABUSE TREATMENT (12/26/15) Family History: States: No Known Family Hx - Social History Hx Tobacco Use: No Hx Alcohol Use: Yes Hx Substance Use: No - Immunization History Hx Tetanus Toxoid Vaccination: No (unk) Hx Influenza Vaccination: No (unk) Hx Pneumococcal Vaccination: No (unk) Review Of Systems Constitutional: Negative for: Fever, Chills Cardiovascular: Negative for: Chest Pain Respiratory: Negative for: Shortness of Breath Gastrointestinal: Negative for: Nausea, Vomiting Skin: Negative for: Rash Psych: Positive for: Other (ETOH intoxication). Negative for: Suicidal ideation , Withdrawal Physical Exam - Physical Exam Appears: Non-toxic, No Acute Distress, Other (ETOH on breath, Poor hygiene) Skin: Warm, Dry Head: Atraumatic, Normacephalic Eye(s): bilateral: Normal Inspection Oral Mucosa: Moist Neck: Normal ROM, Supple Chest: Symmetrical, No Tenderness Cardiovascular: Rhythm Regular, No Friction Rub, No Murmur Respiratory: Normal Breath Sounds, No Rales, No Rhonchi, No Wheezing Gastrointestinal/Abdominal: Soft, No Tenderness, No Guarding, No Rebound Back: Normal Inspection, No CVA Tenderness Extremity: Normal ROM, Capillary Refill (<2 seconds), No Swelling Neurological/Psych: Oriented x3, Normal Speech, Normal Cognition, Normal Motor, Normal Sensation Gait: Steady ED Course And Treatment O2 Sat by Pulse Oximetry: 98 (RA) Pulse Ox Interpretation: Normal Medical Decision Making Medical Decision Making: The patient is ambulatory in the ED with steady gait. Normal speech. Observed and discharged home. Disposition - Disposition Disposition: HOME/ ROUTINE Disposition Time: 17:20 Condition: STABLE Additional Instructions: Follow up with the medical doctor within 1-2 days. Return if worsened. Instructions: Polysubstance Abuse (DC), Alcohol Use - When Is Drinking a Problem? Forms: [employer] (Icelandic) - Clinical Impression Clinical Impression: Medical assessment, Alcohol abuse - PA / WELDER OXYHYDROGEN / Resident Statement MD/DO has reviewed & agrees with the documentation as recorded. - Scribe Statement The provider has reviewed the documentation as recorded by the Augustaibjackelyn Jo All medical record entries made by the Augustaibjackelyn were at my direction and personally dictated by me. I have reviewed the chart and agree that the record accurately reflects my personal performance of the history, physical exam, medical decision making, and the department course for this patient. I have also personally directed, reviewed, and agree with the discharge instructions and disposition.
[2017-08-21 17:41] VITALS: BP 126/75; PULSE 78; RESP 18; TEMP 98
== END 2017-08-21 17:41 | disposition home or self-care (01) ==
LOC: C.ER 15:56
DX: F10.129 Alcohol abuse with intoxication, unspecified (principal); Y90.9 Presence of alcohol in blood, level not specified

== ENCOUNTER 2017-08-23 01:16 | Emergency (ER) | payer MEDICARE ==
[2017-08-23 01:17] VITALS: BMI 25.0
[2017-08-23 01:22] VITALS: TEMP 97.8
--- NOTE | 2017-08-23 03:38 | C.PDOC ---
History Of Present Illness 71 Year old male brought to the emergency department by EMS for public intoxication. Patient is well known to the ED for multiple prior alcohol intoxication visits. Patient admits to drinking alcohol today, and denies falls/ injuries or physical complaints. Time Seen by Provider: 08/23/17 02:04 Chief Complaint (Nursing): Substance Abuse History Per: Patient, EMS History/Exam Limitations: intoxication Onset/Duration Of Symptoms: Unknown Suicide/Self Injury Attempted (Context): None Modifying Factor(s): Alcohol Severity: Moderate Involuntary Hold By: Emergency Physician Past Medical History Reviewed: Historical Data, Nursing Documentation, Vital Signs Vital Signs: Last Vital Signs Temp 97.8 F 08/23/17 01:20 Pulse 92 H 08/23/17 05:54 Resp 16 08/23/17 05:54 BP 124/76 08/23/17 05:54 Pulse Ox 95 08/23/17 05:54 - Medical History PMH: Anxiety, Asthma, Back Problems, Bipolar Disorder, Depression, Gastritis, HTN, Schizophrenia, Chronic Pain (Back Pain) Surgical History: Hernia Repair, Tonsillectomy - [facility] Procedures DETOXIFICATION SERVICES FOR SUBSTANCE ABUSE TREATMENT (12/26/15) Family History: States: No Known Family Hx - Social History Hx Tobacco Use: No Hx Alcohol Use: Yes Hx Substance Use: No - Immunization History Hx Tetanus Toxoid Vaccination: No (unk) Hx Influenza Vaccination: No (unk) Hx Pneumococcal Vaccination: No (unk) Review Of Systems Constitutional: Positive for: Other (ETOH intoxication). Negative for: Fever, Chills Cardiovascular: Negative for: Chest Pain Respiratory: Negative for: Shortness of Breath Gastrointestinal: Negative for: Nausea, Vomiting, Abdominal Pain, Diarrhea Psych: Positive for: Other (alcohol intoxication) Physical Exam - Physical Exam Appears: Well, Non-toxic, Unkempt, Other (smells of urine and ETOH) Skin: Normal Color, Warm, Dry Head: Atraumatic, Normacephalic Eye(s): bilateral: Normal Inspection, PERRL, EOMI Oral Mucosa: Moist Neck: Normal, Normal ROM, No Midline Cervical Tenderness, No Paracervical Tenderness, No Step Off Deformity, Supple Cardiovascular: Rhythm Regular Respiratory: Normal Breath Sounds, No Rales, No Rhonchi, No Wheezing Gastrointestinal/Abdominal: Normal Exam, Bowel Sounds, Soft, No Tenderness Extremity: Normal ROM, No Deformity, No Swelling Extremity: Bilateral: Atraumatic Neurological/Psych: Other (awake, alert, intoxicated) ED Course And Treatment O2 Sat by Pulse Oximetry: 97 (RA) Pulse Ox Interpretation: Normal Progress Note: Accucheck ordered and reviewed. Patient pending sobriety. Reevaluation Time: 05:50 Reassessment Condition: Improved (On reassessment, patient is AAOx3, ambulating normally in ED and is clinically sober. Will discharge.) Disposition Counseled Patient/Family Regarding: Studies Performed, Diagnosis, Need For Followup - Disposition Referrals: [facility] [Outside] Disposition: HOME/ ROUTINE Disposition Time: 06:00 Condition: STABLE Instructions: Alcohol Abuse and Alcoholism (DC) Forms: [employer] (Argentine) Print Language: MOHAWK - Clinical Impression Clinical Impression: Alcohol intoxication - Scribe Statement The provider has reviewed the documentation as recorded by the Omar Pavon Provider Attestation: All medical record entries made by the Augustaibjackelyn were at my direction and personally dictated by me. I have reviewed the chart and agree that the record accurately reflects my personal performance of the history, physical exam, medical decision making, and the department course for this patient. I have also personally directed, reviewed, and agree with the discharge instructions and disposition.
[2017-08-23 05:56] VITALS: BP 124/76; PULSE 92; RESP 16
[2017-08-30 17:35] VITALS: O2SAT 97
== END 2017-08-23 06:10 | disposition home or self-care (01) ==
LOC: C.ER 01:16
DX: F10.129 Alcohol abuse with intoxication, unspecified (principal); Y90.9 Presence of alcohol in blood, level not specified

== ENCOUNTER 2017-08-25 15:50 | Emergency (ER) | payer MEDICARE ==
[2017-08-25 15:50] VITALS: BMI 25.0
--- NOTE | 2017-08-25 16:16 | C.PDOC ---
History Of Present Illness 71 y/o male brought to ER by ambulance for public intoxication. Patient denies having SI, HI, and active physical complaints. Of note, patient is well known to [facility]. Time Seen by Provider: 08/25/17 15:55 Chief Complaint (Nursing): Substance Abuse History Per: Patient History/Exam Limitations: no limitations Past Medical History Reviewed: Historical Data, Nursing Documentation, Vital Signs Vital Signs: Last Vital Signs Temp 98 F 08/25/17 15:55 Pulse 93 H 08/25/17 15:55 Resp 18 08/25/17 15:55 BP 156/87 H 08/25/17 15:55 Pulse Ox 99 08/25/17 16:16 - Medical History PMH: Anxiety, Asthma, Back Problems, Bipolar Disorder, Depression, Gastritis, HTN, Schizophrenia, Chronic Pain (Back Pain) Denies: Chronic Kidney Disease Surgical History: Hernia Repair, Tonsillectomy - [facility] Procedures DETOXIFICATION SERVICES FOR SUBSTANCE ABUSE TREATMENT (12/26/15) Family History: States: No Known Family Hx - Social History Hx Tobacco Use: No Hx Alcohol Use: Yes Hx Substance Use: No - Immunization History Hx Tetanus Toxoid Vaccination: No (unk) Hx Influenza Vaccination: No (unk) Hx Pneumococcal Vaccination: No (unk) Review Of Systems Except As Marked, All Systems Reviewed And Found Negative. Physical Exam - Physical Exam Appears: No Acute Distress, Other (disheveled, foul-smelling) Skin: Normal Color, Warm, Dry Head: Atraumatic, Normacephalic Eye(s): bilateral: Normal Inspection Nose: Normal Oral Mucosa: Moist, Other (mild ETOH on breath) Neck: Supple Chest: Symmetrical Cardiovascular: Rhythm Regular Respiratory: Normal Breath Sounds, No Rales, No Rhonchi, No Wheezing Neurological/Psych: Oriented x3, Normal Speech ED Course And Treatment O2 Sat by Pulse Oximetry: 99 (RA) Pulse Ox Interpretation: Normal Medical Decision Making Medical Decision Making: typical alcohol abuse/malingering no acute issues, well known to this MD and ED from many prior evals no further w/u indicated at this time. Disposition Doctor Will See Patient In The: Office Counseled Patient/Family Regarding: Studies Performed, Diagnosis - Disposition Referrals: [facility]ics Anonymous [Outside] [facility] [Outside] [facility] [Outside] [facility] [Outside] Disposition: HOME/ ROUTINE Disposition Time: 16:16 Condition: GOOD Additional Instructions: seek outpatient assistance with your psych and alcohol abuse issues. Instructions: Alcohol Abuse and Alcoholism (DC) Forms: [facility] (Vietnamese) - Clinical Impression Clinical Impression: Alcohol abuse, Homelessness, Malingering - Scribe Statement The provider has reviewed the documentation as recorded by the Omar Brock Provider Attestation: All medical record entries made by the Augustaibjackelyn were at my direction and personally dictated by me. I have reviewed the chart and agree that the record accurately reflects my personal performance of the history, physical exam, medical decision making, and the department course for this patient. I have also personally directed, reviewed, and agree with the discharge instructions and disposition.
[2017-08-25 19:20] VITALS: TEMP 98.8
[2017-08-25 21:27] VITALS: BP 134/80; PULSE 88; RESP 20; O2SAT 97
== END 2017-08-25 21:29 | disposition home or self-care (01) ==
LOC: C.ER 15:50
DX: F10.10 Alcohol abuse, uncomplicated (principal); Z59.0 Homelessness; Z76.5 Malingerer [conscious simulation]; F20.9 Schizophrenia, unspecified; I10 Essential (primary) hypertension

== ENCOUNTER 2017-08-26 09:10 | Emergency (ER) | payer MEDICARE ==
[2017-08-26 09:10] VITALS: BMI 25.0
[2017-08-26 09:36] VITALS: BP 122/69; PULSE 83; RESP 20; TEMP 98.5; O2SAT 98
--- NOTE | 2017-08-26 11:09 | C.PDOC ---
History Of Present Illness 71-year-old male presents to the emergency department for evaluation of alcohol intoxication. He has history of multiple ED visits for similar complaints. He denies physical complaints. Time Seen by Provider: 08/26/17 09:25 Chief Complaint (Nursing): Substance Abuse History Per: Patient History/Exam Limitations: no limitations Current Symptoms Are (Timing): Still Present Modifying Factor(s): Alcohol Severity: Mild Past Medical History Reviewed: Historical Data, Nursing Documentation, Vital Signs Vital Signs: Last Vital Signs Temp 98.5 F 08/26/17 09:32 Pulse 83 08/26/17 09:32 Resp 20 08/26/17 09:32 BP 122/69 08/26/17 09:32 Pulse Ox 98 08/26/17 11:33 - Medical History PMH: Anxiety, Asthma, Back Problems, Bipolar Disorder, Depression, Gastritis, HTN, Schizophrenia, Chronic Pain (Back Pain) Surgical History: Hernia Repair, Tonsillectomy - [facility] DETOXIFICATION SERVICES FOR SUBSTANCE ABUSE TREATMENT (12/26/15) Family History: States: No Known Family Hx - Social History Hx Tobacco Use: No Hx Alcohol Use: Yes Hx Substance Use: No - Immunization History Hx Tetanus Toxoid Vaccination: No (unk) Hx Influenza Vaccination: No (unk) Hx Pneumococcal Vaccination: No (unk) Review Of Systems Constitutional: Negative for: Fever, Chills Cardiovascular: Negative for: Chest Pain Respiratory: Negative for: Shortness of Breath Gastrointestinal: Negative for: Nausea, Vomiting, Abdominal Pain Neurological: Positive for: Other (alcohol intoxication) Psych: Negative for: Suicidal ideation Physical Exam - Physical Exam Appears: Well, Non-toxic, No Acute Distress Skin: Warm, Dry, No Rash Head: Atraumatic, Normacephalic Eye(s): bilateral: Normal Inspection Oral Mucosa: Moist Neck: Normal, Normal ROM Cardiovascular: Rhythm Regular Respiratory: Normal Breath Sounds, No Rales, No Rhonchi, No Wheezing Extremity: Normal ROM, No Deformity, No Swelling Extremity: Bilateral: Atraumatic, Normal Color And Temperature, Normal ROM Neurological/Psych: Oriented x3, Other (mildly intoxicated) ED Course And Treatment O2 Sat by Pulse Oximetry: 98 (RA) Pulse Ox Interpretation: Normal Progress Note: Accucheck ordered and reviewed. 11:09- Patient is currently AAOx3, ambulating normally in ED. He is clinically sober at this time, will discharge. Reevaluation Time: 11:09 Reassessment Condition: Improved Disposition Counseled Patient/Family Regarding: Studies Performed, Diagnosis, Need For Followup - Disposition Referrals: [facility] [Outside] Disposition: HOME/ ROUTINE Disposition Time: 11:09 Condition: STABLE Instructions: Alcohol Abuse and Alcoholism (DC) Forms: [facility] (Telugu) Print Language: ESTONIAN - POA Present On Arrival: None - Clinical Impression Clinical Impression: Alcohol intoxication - Scribe Statement The provider has reviewed the documentation as recorded by the Scribe (Liseth Bañuelos) All medical record entries made by the Scribe were at my direction and personally dictated by me. I have reviewed the chart and agree that the record accurately reflects my personal performance of the history, physical exam, medical decision making, and the department course for this patient. I have also personally directed, reviewed, and agree with the discharge instructions and disposition.
== END 2017-08-26 11:09 | disposition home or self-care (01) ==
LOC: C.ER 09:10
DX: F10.129 Alcohol abuse with intoxication, unspecified (principal); Y90.9 Presence of alcohol in blood, level not specified

== ENCOUNTER 2017-08-26 15:26 | Emergency (ER) | payer MEDICARE ==
[2017-08-26 15:26] VITALS: BMI 25.0
== END 2017-08-26 15:34 | disposition left against medical advice (07) ==
LOC: C.ER 15:26
DX: Z02.89 Encounter for other administrative examinations (principal); F19.10 Other psychoactive substance abuse, uncomplicated

== ENCOUNTER 2017-08-26 19:40 | Emergency (ER) | payer MEDICARE ==
[2017-08-26 19:40] VITALS: BMI 25.0
[2017-08-27 00:41] VITALS: BP 127/86; PULSE 91; RESP 18; TEMP 98; O2SAT 95
--- NOTE | 2017-08-27 01:55 | C.PDOC ---
History Of Present Illness 71 year old male presents to the emergency department after being brought in by EMS for intoxication. Chief Complaint (Nursing): Substance Abuse History Per: Patient History/Exam Limitations: intoxication Onset/Duration Of Symptoms: Hrs Current Symptoms Are (Timing): Still Present Modifying Factor(s): Alcohol Past Medical History Reviewed: Historical Data, Nursing Documentation, Vital Signs Vital Signs: Last Vital Signs Temp 98.0 F 08/27/17 00:40 Pulse 91 H 08/27/17 00:40 Resp 18 08/27/17 00:40 BP 127/86 08/27/17 00:40 Pulse Ox 95 08/27/17 02:01 - Medical History PMH: Anxiety, Asthma, Back Problems, Bipolar Disorder, Depression, Gastritis, HTN, Schizophrenia, Chronic Pain (Back Pain) Denies: Chronic Kidney Disease Surgical History: Hernia Repair, Tonsillectomy - [facility] DETOXIFICATION SERVICES FOR SUBSTANCE ABUSE TREATMENT (12/26/15) Family History: States: Unknown Family Hx - Social History Hx Tobacco Use: No Hx Alcohol Use: Yes Hx Substance Use: No - Immunization History Hx Tetanus Toxoid Vaccination: No (unk) Hx Influenza Vaccination: No (unk) Hx Pneumococcal Vaccination: No (unk) Review Of Systems Review Of Systems: ROS cannot be obtained secondary to pt's inabilty to answer questions. Physical Exam - Physical Exam Appears: Non-toxic, No Acute Distress Oral Mucosa: Other (smell of EtOH on breath) Cardiovascular: Rhythm Regular Respiratory: Normal Breath Sounds Gastrointestinal/Abdominal: Normal Exam, Soft, No Tenderness ED Course And Treatment O2 Sat by Pulse Oximetry: 95 (RA) Pulse Ox Interpretation: Normal Disposition Counseled Patient/Family Regarding: Diagnosis - Disposition Disposition: HOME/ ROUTINE Disposition Time: 02:00 Condition: STABLE Instructions: Alcohol Abuse and Alcoholism (DC) Forms: [employer] (Bengali) - POA Present On Arrival: None - Clinical Impression Clinical Impression: Alcohol abuse with uncomplicated intoxication - Scribe Statement The provider has reviewed the documentation as recorded by the Scribe (Saran Ruiz) Provider Attestation: All medical record entries made by the Scribe were at my direction and personally dictated by me. I have reviewed the chart and agree that the record accurately reflects my personal performance of the history, physical exam, medical decision making, and the department course for this patient. I have also personally directed, reviewed, and agree with the discharge instructions and disposition.
== END 2017-08-27 01:57 | disposition home or self-care (01) ==
LOC: C.ER 19:40
DX: F10.129 Alcohol abuse with intoxication, unspecified (principal); Y90.9 Presence of alcohol in blood, level not specified

== ENCOUNTER 2017-08-27 12:39 | Emergency (ER) | payer MEDICARE ==
[2017-08-27 12:40] VITALS: BMI 25.0
[2017-08-27 12:47] VITALS: RESP 18
--- NOTE | 2017-08-27 14:11 | C.PDOC ---
History Of Present Illness 71-year-old male, presents to the emergency department with complaints of public intoxication. Patient has a Hx of multiple visits for same complaint in the past. Time Seen by Provider: 08/27/17 13:21 Chief Complaint (Nursing): Substance Abuse History Per: Patient History/Exam Limitations: no limitations Current Symptoms Are (Timing): Still Present Past Medical History Reviewed: Historical Data, Nursing Documentation, Vital Signs Vital Signs: Last Vital Signs Temp 98.0 F 08/27/17 17:40 Pulse 86 08/27/17 17:40 Resp 18 08/27/17 17:40 BP 124/82 08/27/17 17:40 Pulse Ox 96 08/27/17 17:40 - Medical History PMH: Anxiety, Asthma, Back Problems, Bipolar Disorder, Depression, Gastritis, HTN, Schizophrenia, Chronic Pain (Back Pain) Surgical History: Hernia Repair, Tonsillectomy - [facility] DETOXIFICATION SERVICES FOR SUBSTANCE ABUSE TREATMENT (12/26/15) Family History: States: No Known Family Hx - Social History Hx Tobacco Use: No Hx Alcohol Use: Yes Hx Substance Use: No - Immunization History Hx Tetanus Toxoid Vaccination: No (unk) Hx Influenza Vaccination: No (unk) Hx Pneumococcal Vaccination: No (unk) Review Of Systems Review Of Systems: ROS cannot be obtained secondary to pt's inabilty to answer questions. (public intoxication) Physical Exam - Physical Exam Appears: Non-toxic, No Acute Distress, Other (etoh on breath.) Skin: Normal Color, Warm, Dry, No Diaphoretic, No Rash, No Jaundice Head: Normacephalic Eye(s): bilateral: PERRL Nose: Normal Neck: Normal ROM Chest: Symmetrical, No Tenderness Cardiovascular: Rhythm Regular, No Friction Rub, No Murmur Respiratory: No Accessory Muscle Use, Other (no acute respiratory distress) Gastrointestinal/Abdominal: No Tenderness Extremity: Normal ROM, No Deformity, No Swelling Neurological/Psych: Oriented x3, Normal Speech Gait: Steady ED Course And Treatment O2 Sat by Pulse Oximetry: 95 (RA) Pulse Ox Interpretation: Normal Medical Decision Making Medical Decision Making: On re-exam, the patient is ambulatory in the ED with steady gait. Normal speech. Disposition - Disposition Referrals: [facility] [Outside] Disposition: HOME/ ROUTINE Disposition Time: 17:22 Condition: STABLE Additional Instructions: Follow up with the medical doctor/clinic within 1-2 days. Return if worsened. Instructions: Alcohol Use - When Is Drinking a Problem? Forms: [facility] (Slovak) - Clinical Impression Clinical Impression: Alcohol abuse - Scribe Statement The provider has reviewed the documentation as recorded by the Scribe (Liseth Bañuelos) All medical record entries made by the Scribe were at my direction and personally dictated by me. I have reviewed the chart and agree that the record accurately reflects my personal performance of the history, physical exam, medical decision making, and the department course for this patient. I have also personally directed, reviewed, and agree with the discharge instructions and disposition.
[2017-08-27 17:41] VITALS: BP 124/82; PULSE 86; TEMP 98
[2017-08-27 17:59] VITALS: O2SAT 95
== END 2017-08-27 17:41 | disposition home or self-care (01) ==
LOC: C.ER 12:39
DX: F10.129 Alcohol abuse with intoxication, unspecified (principal); Y90.9 Presence of alcohol in blood, level not specified

== ENCOUNTER 2017-08-28 20:42 | Emergency (ER) | payer MEDICARE ==
[2017-08-28 20:46] VITALS: BMI 23.5
--- NOTE | 2017-08-28 20:55 | C.PDOC ---
History Of Present Illness The patient is brought to the ED by ambulance for evaluation after he was found publicly intoxicated prior to arrival. Patient is familiar to the ED and has had many prior evaluations for similar presentations. Patient admits to drinking earlier today and denies suicidal/homicidal ideation at this time. Time Seen by Provider: 08/28/17 20:54 Chief Complaint (Nursing): Substance Abuse History Per: Patient, EMS History/Exam Limitations: intoxication Onset/Duration Of Symptoms: Hrs Current Symptoms Are (Timing): Still Present Suicide/Self Injury Attempted (Context): None Modifying Factor(s): Alcohol Severity: None Pain Scale Rating Of: 0 Associated Symptoms: denies: Suicidal Thoughts, Suicidal Plan Involuntary Hold By: None Recent travel outside of the [place]: No Additional History Per: Patient Past Medical History Reviewed: Historical Data, Nursing Documentation, Vital Signs Vital Signs: Last Vital Signs Temp 97.8 F 08/28/17 20:56 Pulse 90 08/28/17 20:56 Resp 20 08/28/17 20:56 BP 123/88 08/28/17 20:56 Pulse Ox 97 08/28/17 21:13 - Medical History PMH: Anxiety, Asthma, Back Problems, Bipolar Disorder, Depression, Gastritis, HTN, Schizophrenia, Chronic Pain (Back Pain) Denies: Chronic Kidney Disease Surgical History: Hernia Repair, Tonsillectomy - [facility] Procedures DETOXIFICATION SERVICES FOR SUBSTANCE ABUSE TREATMENT (12/26/15) Family History: States: Unknown Family Hx - Social History Hx Tobacco Use: No Hx Alcohol Use: Yes Hx Substance Use: No - Immunization History Hx Tetanus Toxoid Vaccination: No (unk) Hx Influenza Vaccination: No (unk) Hx Pneumococcal Vaccination: No (unk) Review Of Systems Constitutional: Negative for: Fever, Chills Cardiovascular: Negative for: Chest Pain, Palpitations Respiratory: Negative for: Cough, Shortness of Breath Gastrointestinal: Negative for: Nausea, Vomiting, Abdominal Pain Skin: Negative for: Rash, Lesions, Jaundice, Bruising Neurological: Negative for: Weakness, Numbness Psych: Positive for: Other (EtOH intoxication ). Negative for: Suicidal ideation Physical Exam - Physical Exam Appears: Non-toxic, No Acute Distress, Other (visibly intoxicated ) Skin: Normal Color, Warm, Dry, No Other (obvious signs of injuries or trauma ) Head: Normacephalic Eye(s): bilateral: Normal Inspection Oral Mucosa: Moist, Other (alcohol on breath ) Neck: Supple Chest: Symmetrical Cardiovascular: Rhythm Regular Respiratory: No Accessory Muscle Use Extremity: Normal ROM, Capillary Refill (less than 2 seconds ) Neurological/Psych: Other (arousable to touch and verbal stimuli ) ED Course And Treatment O2 Sat by Pulse Oximetry: 97 (on RA ) Pulse Ox Interpretation: Normal Disposition Counseled Patient/Family Regarding: Studies Performed, Diagnosis, Need For Followup - Disposition Referrals: [facility] [Outside] Disposition: HOME/ ROUTINE Disposition Time: 20:54 Condition: FAIR Instructions: Alcohol Abuse and Alcoholism (DC) Forms: [employer] (Mauritian) - Clinical Impression Clinical Impression: Alcohol abuse, Alcohol intoxication - Scribe Statement The provider has reviewed the documentation as recorded by the Scribe (Chrissy Leiva) Provider Attestation: All medical record entries made by the Scribe were at my direction and personally dictated by me. I have reviewed the chart and agree that the record accurately reflects my personal performance of the history, physical exam, medical decision making, and the department course for this patient. I have also personally directed, reviewed, and agree with the discharge instructions and disposition.
[2017-08-29 05:15] VITALS: BP 110/62; PULSE 90; RESP 20; TEMP 98.1; O2SAT 97
== END 2017-08-29 05:17 | disposition home or self-care (01) ==
LOC: C.ER 20:42
DX: F10.129 Alcohol abuse with intoxication, unspecified (principal)

== ENCOUNTER 2017-08-29 17:38 | Emergency (ER) | payer MEDICARE ==
[2017-08-29 17:48] VITALS: BMI 23.6
--- NOTE | 2017-08-29 17:48 | C.PDOC ---
History Of Present Illness <Hudson Oconnor - Last Filed: 08/29/17 18:12> <Jw Sauceda - Last Filed: 08/29/17 22:13> 71 year old homeless man brought into the ED by EMS because of public loitering. Patient has a foul smell and is disheveled. (Hudson Oconnor) History Per: Patient (Homeless) History/Exam Limitations: no limitations <Hudson Oconnor - Last Filed: 08/29/17 18:12> <Jw Sauceda - Last Filed: 08/29/17 22:13> Time Seen by Provider: 08/29/17 17:39 Chief Complaint (Nursing): Substance Abuse Past Medical History - Medical History PMH: Anxiety, Asthma, Back Problems, Bipolar Disorder, Depression, Gastritis, HTN, Schizophrenia, Chronic Pain (Back Pain) Denies: Chronic Kidney Disease Surgical History: Hernia Repair, Tonsillectomy Family History: States: Unknown Family Hx - Social History Hx Tobacco Use: No Hx Alcohol Use: Yes Hx Substance Use: No - Immunization History Hx Tetanus Toxoid Vaccination: No (unk) Hx Influenza Vaccination: No (unk) Hx Pneumococcal Vaccination: No (unk) <Jw Sauceda - Last Filed: 08/29/17 22:13> Vital Signs: Last Vital Signs Temp 98 F 08/29/17 17:57 Pulse 76 08/29/17 17:57 Resp 18 08/29/17 17:57 BP 126/73 08/29/17 17:57 Pulse Ox 98 08/29/17 17:57 - [facility] Procedures DETOXIFICATION SERVICES FOR SUBSTANCE ABUSE TREATMENT (12/26/15) Medical Decision Making <Hudson Oconnor - Last Filed: 08/29/17 18:12> <Jw Sauceda - Last Filed: 08/29/17 22:13> Medical Decision Making: no acute issues, normal gait not intox malingering. (Hudson Oconnor) Disposition Doctor Will See Patient In The: Office Counseled Patient/Family Regarding: Studies Performed, Diagnosis - Disposition Disposition Time: 17:52 <Hudson Oconnor - Last Filed: 08/29/17 18:12> <Jw Sauceda - Last Filed: 08/29/17 22:13> - Disposition Referrals: Alcoholics Anonymous [Outside] [facility] [Outside] [facility] [Outside] [facility] [Outside] Disposition: HOME/ ROUTINE Condition: GOOD Additional Instructions: seek nightly intermediate placement Forms: General Discharge Instructions, [facility] (Italian) - Clinical Impression Clinical Impression: Malingering - Scribe Statement The provider has reviewed the documentation as recorded by the Scribe (Connie Hoff) <Hudson Oconnor - Last Filed: 08/29/17 18:12> <Jw Sauceda - Last Filed: 08/29/17 22:13> - Scribe Statement Provider Attestation: All medical record entries made by the Scribe were at my direction and personally dictated by me. I have reviewed the chart and agree that the record accurately reflects my personal performance of the history, physical exam, medical decision making, and the department course for this patient. I have also personally directed, reviewed, and agree with the discharge instructions and disposition. (Hudson Oconnor)
[2017-08-29 17:58] VITALS: BP 126/73; PULSE 76; RESP 18; TEMP 98; O2SAT 98
== END 2017-08-29 17:58 | disposition home or self-care (01) ==
LOC: C.ER 17:38
DX: Z76.5 Malingerer [conscious simulation] (principal); Z59.0 Homelessness

== ENCOUNTER 2017-08-29 20:09 | Emergency (ER) | payer MEDICARE ==
[2017-08-29 20:09] VITALS: BMI 23.5
--- NOTE | 2017-08-29 20:17 | C.PDOC ---
History Of Present Illness The patient is brought to the ED for evaluation of public alcohol intoxication for an unknown duration. Patient is familiar to this ED and has had prior evaluations for similar presentations. Patient admits to drinking earlier today. He has no obvious signs of injuries and has no complaints at this time. Time Seen by Provider: 08/29/17 20:16 Chief Complaint (Nursing): Medical Clearance History Per: Patient History/Exam Limitations: intoxication Onset/Duration Of Symptoms: Unknown Current Symptoms Are (Timing): Still Present Severity: None Pain Scale Rating Of: 0 Recent travel outside of the [place]: No Additional History Per: Patient Past Medical History Reviewed: Historical Data, Nursing Documentation, Vital Signs Vital Signs: Last Vital Signs Temp 98 F 08/30/17 00:47 Pulse 88 08/30/17 00:47 Resp 18 08/30/17 00:47 BP 126/82 08/30/17 00:47 Pulse Ox 97 08/30/17 00:47 - Medical History PMH: Anxiety, Asthma, Back Problems, Bipolar Disorder, Depression, Gastritis, HTN, Schizophrenia, Chronic Pain (Back Pain) Denies: Chronic Kidney Disease Surgical History: Hernia Repair, Tonsillectomy - [facility] DETOXIFICATION SERVICES FOR SUBSTANCE ABUSE TREATMENT (12/26/15) Family History: States: Unknown Family Hx - Social History Hx Tobacco Use: No Hx Alcohol Use: Yes Hx Substance Use: No - Immunization History Hx Tetanus Toxoid Vaccination: No (unk) Hx Influenza Vaccination: No (unk) Hx Pneumococcal Vaccination: No (unk) Review Of Systems Constitutional: Negative for: Fever, Chills Cardiovascular: Negative for: Chest Pain, Palpitations Respiratory: Negative for: Cough, Shortness of Breath Gastrointestinal: Negative for: Nausea, Vomiting, Abdominal Pain Skin: Negative for: Rash, Lesions, Jaundice, Bruising Neurological: Negative for: Weakness, Numbness Psych: Positive for: Other (EtOH intoxication ) Physical Exam - Physical Exam Appears: Non-toxic, No Acute Distress, Other (visibly intoxicated) Skin: Warm, Dry Head: Normacephalic Eye(s): bilateral: Normal Inspection Oral Mucosa: Moist, Other (alcohol on breath ) Neck: Supple Chest: Symmetrical, No Deformity, No Tenderness Cardiovascular: Rhythm Regular, No Murmur Respiratory: No Rales, No Rhonchi, No Wheezing Extremity: Normal ROM, Capillary Refill (less than 2 seconds ) Neurological/Psych: Other (arousable to touch and verbal stimuli ) Gait: Unsteady ED Course And Treatment O2 Sat by Pulse Oximetry: 97 Pulse Ox Interpretation: Normal Reevaluation Time: 04:47 Reassessment Condition: Improved Disposition Counseled Patient/Family Regarding: Studies Performed, Diagnosis, Need For Followup - Disposition Referrals: [facility] [Outside] Disposition: HOME/ ROUTINE Disposition Time: 20:17 Condition: FAIR Instructions: Alcohol Abuse and Alcoholism (DC) Forms: [employer] (Kyrgyz) - Clinical Impression Clinical Impression: Alcoholism /alcohol abuse, Alcohol abuse with intoxication - Scribe Statement The provider has reviewed the documentation as recorded by the Scribe (Chrissy Leiva) Provider Attestation: All medical record entries made by the Scribe were at my direction and personally dictated by me. I have reviewed the chart and agree that the record accurately reflects my personal performance of the history, physical exam, medical decision making, and the department course for this patient. I have also personally directed, reviewed, and agree with the discharge instructions and disposition.
[2017-08-29 20:28] VITALS: O2SAT 97
[2017-08-30 00:48] VITALS: BP 126/82; PULSE 88; RESP 18; TEMP 98
== END 2017-08-30 05:17 | disposition home or self-care (01) ==
LOC: C.ER 20:09
DX: F10.229 Alcohol dependence with intoxication, unspecified (principal); Y90.9 Presence of alcohol in blood, level not specified

== ENCOUNTER 2017-09-03 15:45 | Emergency (ER) | payer MEDICARE ==
[2017-09-03 15:45] VITALS: BMI 25.8
[2017-09-03 16:14] VITALS: BP 120/79; PULSE 92; RESP 20; TEMP 97.7; O2SAT 97
--- NOTE | 2017-09-03 16:30 | C.PDOC ---
History Of Present Illness 71 y/o male brought to ER for public drinking and malingering. Patient admits that he was drinking ETOH today. Denies having suicidal ideation, homicidal ideation, and active physical complaints. Of note, patient is well known to the ER as he has visited multiple times for ETOH intoxication in the past. Time Seen by Provider: 09/03/17 16:18 Chief Complaint (Nursing): Substance Abuse History Per: Patient History/Exam Limitations: no limitations Past Medical History Reviewed: Historical Data, Nursing Documentation, Vital Signs Vital Signs: Last Vital Signs Temp 97.7 F 09/03/17 16:12 Pulse 92 H 09/03/17 16:12 Resp 20 09/03/17 16:12 BP 120/79 09/03/17 16:12 Pulse Ox 97 09/03/17 17:21 - Medical History PMH: Anxiety, Asthma, Back Problems, Bipolar Disorder, Depression, Gastritis, HTN, Schizophrenia, Chronic Pain (Back Pain) Surgical History: Hernia Repair, Tonsillectomy - [facility] Procedures DETOXIFICATION SERVICES FOR SUBSTANCE ABUSE TREATMENT (12/26/15) Family History: States: No Known Family Hx - Social History Hx Tobacco Use: No Hx Alcohol Use: Yes Hx Substance Use: No - Immunization History Hx Tetanus Toxoid Vaccination: No (unk) Hx Influenza Vaccination: No (unk) Hx Pneumococcal Vaccination: No (unk) Review Of Systems Except As Marked, All Systems Reviewed And Found Negative. Physical Exam - Physical Exam Appears: No Acute Distress, Other (awake, alert, orientedx3, disheveled, foul- smelling) Skin: Normal Color, Warm, Dry Head: Atraumatic, Normacephalic Eye(s): bilateral: Normal Inspection Nose: Normal Oral Mucosa: Moist, Other (mild ETOH on breath) Neck: Supple Chest: Symmetrical Cardiovascular: Rhythm Regular Respiratory: Normal Breath Sounds, No Rales, No Rhonchi, No Wheezing Neurological/Psych: Oriented x3, Normal Speech ED Course And Treatment O2 Sat by Pulse Oximetry: 97 (RA) Pulse Ox Interpretation: Normal Medical Decision Making Medical Decision Making: not intoxicated no sig change from baseline last visit 08/30/17 for same. [email or web address] Disposition Doctor Will See Patient In The: Office Counseled Patient/Family Regarding: Studies Performed, Diagnosis - Disposition Referrals: Alcoholics Anonymous [Outside] [facility] [Outside] [facility] [Outside] [facility] [Outside] Disposition: HOME/ ROUTINE Disposition Time: 16:30 Condition: GOOD Additional Instructions: seek nightly longterm placement seek AA Seek outpatient psych resources Instructions: Alcohol Abuse and Alcoholism (DC) Forms: [facility] (Amharic) - Clinical Impression Clinical Impression: Alcohol abuse, Malingering - Scribe Statement The provider has reviewed the documentation as recorded by the Omar Brock Provider Attestation: All medical record entries made by the Omar were at my direction and personally dictated by me. I have reviewed the chart and agree that the record accurately reflects my personal performance of the history, physical exam, medical decision making, and the department course for this patient. I have also personally directed, reviewed, and agree with the discharge instructions and disposition.
== END 2017-09-03 16:45 | disposition home or self-care (01) ==
LOC: C.ER 15:45
DX: F10.10 Alcohol abuse, uncomplicated (principal); Z76.5 Malingerer [conscious simulation]

== ENCOUNTER 2017-09-04 14:58 | Emergency (ER) | payer MEDICARE ==
[2017-09-04 14:59] VITALS: BMI 25.8
--- NOTE | 2017-09-04 15:21 | C.PDOC ---
History Of Present Illness 71 y/o male brought to ER by ambulance for public intoxication in [facility]. Patient denies having suicidal ideation, homicidal ideation, and new injuries. Patient was seen yesterday and multiple times in the past in [facility] [place] ER for the same complaint. Time Seen by Provider: 09/04/17 15:19 Chief Complaint (Nursing): Substance Abuse History Per: Patient History/Exam Limitations: no limitations Past Medical History Reviewed: Historical Data, Nursing Documentation, Vital Signs Vital Signs: Last Vital Signs Temp 98.6 F 09/04/17 15:27 Pulse 93 H 09/04/17 15:27 Resp 18 09/04/17 15:27 BP 119/78 09/04/17 15:27 Pulse Ox 99 09/04/17 15:27 - Medical History PMH: Anxiety, Asthma, Back Problems, Bipolar Disorder, Depression, Gastritis, HTN, Schizophrenia, Chronic Pain (Back Pain) Surgical History: Hernia Repair, Tonsillectomy - [facility] DETOXIFICATION SERVICES FOR SUBSTANCE ABUSE TREATMENT (12/26/15) Family History: States: No Known Family Hx - Social History Hx Tobacco Use: No Hx Alcohol Use: Yes Hx Substance Use: No - Immunization History Hx Tetanus Toxoid Vaccination: No (unk) Hx Influenza Vaccination: No (unk) Hx Pneumococcal Vaccination: No (unk) Review Of Systems Except As Marked, All Systems Reviewed And Found Negative. Physical Exam - Physical Exam Appears: No Acute Distress Skin: Normal Color, Warm, Dry Head: Atraumatic, Normacephalic Eye(s): bilateral: Normal Inspection Nose: Normal Oral Mucosa: Moist, Other (ETOH on breath) Neck: Supple Chest: Symmetrical Cardiovascular: Rhythm Regular Respiratory: Normal Breath Sounds, No Rales, No Rhonchi, No Wheezing Neurological/Psych: Oriented x3, Normal Speech Medical Decision Making Medical Decision Making: chronic alcoholism/malingering. Disposition Doctor Will See Patient In The: Office Counseled Patient/Family Regarding: Studies Performed, Diagnosis - Disposition Referrals: Alcoholics Anonymous [Outside] [facility] [Outside] [facility] [Outside] [facility] [Outside] [facility] [Outside] Disposition: HOME/ ROUTINE Disposition Time: 15:21 Condition: GOOD Additional Instructions: seek nightly intermediate placement seek alcohol detox seek AA Seek outpatient psych counseling. Instructions: Alcohol Abuse and Alcoholism (DC) Forms: [employer] (Finnish) - Clinical Impression Clinical Impression: Alcohol abuse, Malingering - Scribe Statement The provider has reviewed the documentation as recorded by the Omar Brock Provider Attestation: All medical record entries made by the Augustaibe were at my direction and personally dictated by me. I have reviewed the chart and agree that the record accurately reflects my personal performance of the history, physical exam, medical decision making, and the department course for this patient. I have also personally directed, reviewed, and agree with the discharge instructions and disposition.
[2017-09-04 15:28] VITALS: BP 119/78; PULSE 93; RESP 18; TEMP 98.6; O2SAT 99
== END 2017-09-04 15:41 | disposition home or self-care (01) ==
LOC: C.ER 14:58
DX: F10.10 Alcohol abuse, uncomplicated (principal); Z76.5 Malingerer [conscious simulation]; F20.9 Schizophrenia, unspecified; I10 Essential (primary) hypertension

== ENCOUNTER 2017-09-04 18:58 | Emergency (ER) | payer MEDICARE ==
[2017-09-04 18:58] VITALS: BMI 25.8
[2017-09-04 19:10] VITALS: BP 114/64; PULSE 94; RESP 20; TEMP 98.2; O2SAT 97
--- NOTE | 2017-09-04 19:31 | C.PDOC ---
History Of Present Illness 71 y/o male is brought to the ED by ambulance for evaluation of public alcohol intoxication for an unknown duration. Patient is familiar to this ED and has had many prior visits with similar presentations. He was evaluated in this ED for alcohol intoxication earlier today. Patient admits to drinking earlier today and has no other complaints at this time. Time Seen by Provider: 09/04/17 19:16 Chief Complaint (Nursing): Substance Abuse History Per: Patient, EMS History/Exam Limitations: intoxication Onset/Duration Of Symptoms: Hrs Current Symptoms Are (Timing): Still Present Suicide/Self Injury Attempted (Context): None Modifying Factor(s): Alcohol Associated Symptoms: denies: Suicidal Thoughts, Suicidal Plan Involuntary Hold By: None Recent travel outside of the [place]: No Additional History Per: Patient, EMS Past Medical History Reviewed: Historical Data, Nursing Documentation, Vital Signs Vital Signs: Last Vital Signs Temp 98.2 F 09/04/17 19:08 Pulse 94 H 09/04/17 19:08 Resp 20 09/04/17 19:08 BP 114/64 09/04/17 19:08 Pulse Ox 97 09/04/17 19:31 - Medical History PMH: Anxiety, Asthma, Back Problems, Bipolar Disorder, Depression, Gastritis, HTN, Schizophrenia, Chronic Pain (Back Pain) Surgical History: Hernia Repair, Tonsillectomy - [facility] Procedures DETOXIFICATION SERVICES FOR SUBSTANCE ABUSE TREATMENT (12/26/15) Family History: States: Unknown Family Hx - Social History Hx Tobacco Use: No Hx Alcohol Use: Yes Hx Substance Use: No - Immunization History Hx Tetanus Toxoid Vaccination: No (unk) Hx Influenza Vaccination: No (unk) Hx Pneumococcal Vaccination: No (unk) Review Of Systems Psych: Positive for: Other (EtOH intoxication ). Negative for: Suicidal ideation Physical Exam - Physical Exam Appears: Non-toxic, No Acute Distress, Other (visibly intoxicated) Skin: Normal Color, Warm, Dry Head: Atraumatic, Normacephalic Eye(s): bilateral: Normal Inspection Oral Mucosa: Moist, Other (alcohol on breath ) Neck: Supple Chest: Symmetrical, No Deformity, No Tenderness Cardiovascular: Rhythm Regular, No Murmur Respiratory: Normal Breath Sounds, No Rales, No Rhonchi, No Wheezing Extremity: Normal ROM, Capillary Refill (less than 2 seconds ) Neurological/Psych: Other (arousable to touch and verbal stimuli ) ED Course And Treatment O2 Sat by Pulse Oximetry: 97 (on RA) Pulse Ox Interpretation: Normal Medical Decision Making Medical Decision Making: biba, no acute issues no sig changes from d/c @15:20 today maligering. Disposition Doctor Will See Patient In The: Office Counseled Patient/Family Regarding: Studies Performed, Diagnosis - Disposition Referrals: Alcoholics Anonymous [Outside] [facility] [Outside] [facility] [Outside] [facility] [Outside] [facility] [Outside] Disposition: HOME/ ROUTINE Disposition Time: 19:31 Condition: GOOD Additional Instructions: seek nightly alf placment seek psych resources seek AA Instructions: Alcohol Abuse and Alcoholism (DC) Forms: [employer] (Scottish) - Clinical Impression Clinical Impression: Alcohol abuse, Malingering - Scribe Statement The provider has reviewed the documentation as recorded by the Scribe (Chrissy Leiva) All medical record entries made by the Scribe were at my direction and personally dictated by me. I have reviewed the chart and agree that the record accurately reflects my personal performance of the history, physical exam, medical decision making, and the department course for this patient. I have also personally directed, reviewed, and agree with the discharge instructions and disposition.
== END 2017-09-04 21:29 | disposition home or self-care (01) ==
LOC: C.ER 18:58
DX: F10.129 Alcohol abuse with intoxication, unspecified (principal); Z76.5 Malingerer [conscious simulation]; F20.9 Schizophrenia, unspecified; I10 Essential (primary) hypertension

== ENCOUNTER 2017-09-05 16:26 | Emergency (ER) | payer MEDICARE ==
[2017-09-05 16:27] VITALS: BMI 25.8
[2017-09-05 17:05] VITALS: RESP 18
--- NOTE | 2017-09-06 00:14 | C.PDOC ---
History Of Present Illness Pt was BIBEMS due to public alcohol intoxication. Time Seen by Provider: 09/05/17 16:54 Chief Complaint (Nursing): Substance Abuse History Per: Patient, EMS History/Exam Limitations: intoxication Onset/Duration Of Symptoms: Unknown Current Symptoms Are (Timing): Still Present Suicide/Self Injury Attempted (Context): None Modifying Factor(s): Alcohol Severity: Severe Associated Symptoms: denies: Suicidal Thoughts, Suicidal Plan Additional History Per: Prior Records Past Medical History Reviewed: Historical Data, Nursing Documentation, Vital Signs Vital Signs: Last Vital Signs Temp 98.1 F 09/06/17 00:52 Pulse 97 H 09/06/17 00:52 Resp 18 09/06/17 00:52 BP 186/91 H 09/06/17 00:52 Pulse Ox 98 09/06/17 00:52 - Medical History PMH: Anxiety, Asthma, Back Problems, Bipolar Disorder, Depression, Gastritis, HTN, Schizophrenia, Chronic Pain (Back Pain) Surgical History: Hernia Repair, Tonsillectomy - [facility] Procedures DETOXIFICATION SERVICES FOR SUBSTANCE ABUSE TREATMENT (12/26/15) Family History: States: Unknown Family Hx - Social History Hx Tobacco Use: No Hx Alcohol Use: Yes Hx Substance Use: No - Immunization History Hx Tetanus Toxoid Vaccination: No (unk) Hx Influenza Vaccination: No (unk) Hx Pneumococcal Vaccination: No (unk) Review Of Systems Review Of Systems: ROS cannot be obtained secondary to pt's inabilty to answer questions. Physical Exam - Physical Exam Appears: No Acute Distress, Unkempt, Other (AOB, intoxicated) Skin: Warm, Dry Head: Atraumatic Eye(s): bilateral: PERRL Neck: Normal ROM, No Midline Cervical Tenderness, No Step Off Deformity, Supple Cardiovascular: Rhythm Regular Respiratory: Normal Breath Sounds, No Accessory Muscle Use Gastrointestinal/Abdominal: Soft Extremity: Normal ROM, No Deformity Neurological/Psych: Eyes Open With Command, Other (Moving all extremities) Pain Response: Withdraws With Pain Gait: Unable To Assess ED Course And Treatment O2 Sat by Pulse Oximetry: 98 Pulse Ox Interpretation: Normal Disposition - Disposition Disposition Time: 01:00 Condition: STABLE - Clinical Impression Clinical Impression: Alcohol abuse, Homelessness Physician Patient Turnover Patient Signed Over To: Cleve Cho Handoff Comments: to reassess/dispo pt once sober.
[2017-09-06 05:25] VITALS: BP 186/90; PULSE 88; TEMP 98; O2SAT 96
== END 2017-09-06 05:24 | disposition home or self-care (01) ==
LOC: C.ER 16:26
DX: F10.10 Alcohol abuse, uncomplicated (principal); Z59.0 Homelessness

== ENCOUNTER 2017-09-06 13:00 | Emergency (ER) | payer MEDICARE ==
[2017-09-06 13:00] VITALS: BMI 25.8
--- NOTE | 2017-09-06 13:56 | C.PDOC ---
History Of Present Illness 71 years old male brought by BLS to ED for public intoxication. ETOH on breath. Denies any physical complaints. Time Seen by Provider: 09/06/17 13:06 Chief Complaint (Nursing): Substance Abuse History Per: Patient History/Exam Limitations: no limitations Onset/Duration Of Symptoms: Hrs Current Symptoms Are (Timing): Still Present Suicide/Self Injury Attempted (Context): None Modifying Factor(s): Alcohol Associated Symptoms: denies: Anger, Depression, Suicidal Thoughts, Suicidal Plan Involuntary Hold By: None Recent travel outside of the [place]: No Past Medical History Reviewed: Historical Data, Nursing Documentation, Vital Signs Vital Signs: Last Vital Signs Temp 98.8 F 09/06/17 18:09 Pulse 92 H 09/06/17 18:09 Resp 18 09/06/17 18:09 BP 118/77 09/06/17 18:09 Pulse Ox 97 09/06/17 18:09 - Medical History PMH: Anxiety (as per previous triage), Asthma, Back Problems, Bipolar Disorder ( as per previous triage), Depression (as per previous triage), Gastritis, HTN, Schizophrenia, Chronic Pain (Back Pain) Surgical History: Hernia Repair, Tonsillectomy - [facility] Procedures DETOXIFICATION SERVICES FOR SUBSTANCE ABUSE TREATMENT (12/26/15) Family History: States: Unknown Family Hx - Social History Hx Tobacco Use: No Hx Alcohol Use: Yes Hx Substance Use: No - Immunization History Hx Tetanus Toxoid Vaccination: (unk) Hx Influenza Vaccination: (unk) Hx Pneumococcal Vaccination: (unk) Review Of Systems Constitutional: Negative for: Fever, Chills Cardiovascular: Negative for: Chest Pain Gastrointestinal: Negative for: Nausea, Vomiting, Abdominal Pain, Diarrhea Skin: Negative for: Rash Neurological: Negative for: Weakness, Numbness Psych: Negative for: Suicidal ideation Physical Exam - Physical Exam Appears: Well, Non-toxic, No Acute Distress, Other (ETOH on breath ) Skin: Normal Color, Warm, Dry Head: Atraumatic, Normacephalic Eye(s): bilateral: Normal Inspection, PERRL, EOMI Nose: Normal Oral Mucosa: Moist Neck: Supple Chest: Symmetrical, No Tenderness Cardiovascular: Rhythm Regular, No Murmur Respiratory: Normal Breath Sounds, No Decreased Breath Sounds, No Rales, No Rhonchi, No Wheezing Gastrointestinal/Abdominal: Normal Exam, Soft, No Tenderness Extremity: Normal ROM, No Deformity Extremity: Bilateral: Normal Color And Temperature, Normal ROM Neurological/Psych: Oriented x3, Normal Speech, Normal Cognition Gait: Steady Medical Decision Making Medical Decision Making: observed 5 hours clinica sober for dc, slept entire ed course Disposition - Disposition Referrals: Alcoholics Anonymous [Outside] Disposition: HOME/ ROUTINE Disposition Time: 07:00 Condition: STABLE Additional Instructions: please follow up with your doctor. return to er with worsening symptoms or concerns. Instructions: Alcohol Abuse and Alcoholism (DC) Forms: [employer] (Turkmen) - Clinical Impression Clinical Impression: Homelessness - Scribe Statement The provider has reviewed the documentation as recorded by the Scribe Lizet White All medical record entries made by the Augustaibe were at my direction and personally dictated by me. I have reviewed the chart and agree that the record accurately reflects my personal performance of the history, physical exam, medical decision making, and the department course for this patient. I have also personally directed, reviewed, and agree with the discharge instructions and disposition.
[2017-09-06 14:00] VITALS: O2SAT 97
[2017-09-06 18:10] VITALS: BP 118/77; PULSE 92; RESP 18; TEMP 98.8
== END 2017-09-06 18:35 | disposition home or self-care (01) ==
LOC: C.ER 13:00
DX: F10.10 Alcohol abuse, uncomplicated (principal); Y90.9 Presence of alcohol in blood, level not specified; Z76.5 Malingerer [conscious simulation]; Z59.0 Homelessness

== ENCOUNTER 2017-09-08 11:59 | Emergency (ER) | payer MEDICARE ==
[2017-09-08 11:59] VITALS: BMI 25.8
[2017-09-08 12:11] VITALS: BP 127/79; PULSE 96; RESP 18; TEMP 99.1; O2SAT 96
--- NOTE | 2017-09-08 14:49 | C.PDOC ---
History Of Present Illness 71-year-old male, brought to the emergency department with complaints of public intoxication. Patient has a Hx of multiple visits to ED for same complaint. The patient reports no complaints at this time. Time Seen by Provider: 09/08/17 12:08 Chief Complaint (Nursing): Substance Abuse History Per: Patient History/Exam Limitations: no limitations Past Medical History Reviewed: Historical Data, Nursing Documentation, Vital Signs Vital Signs: Last Vital Signs Temp 99.1 F 09/08/17 12:10 Pulse 96 H 09/08/17 12:10 Resp 18 09/08/17 12:10 BP 127/79 09/08/17 12:10 Pulse Ox 96 09/08/17 15:29 - Medical History PMH: Anxiety (as per previous triage), Asthma, Back Problems, Bipolar Disorder ( as per previous triage), Depression (as per previous triage), Gastritis, HTN, Schizophrenia, Chronic Pain (Back Pain) Surgical History: Hernia Repair, Tonsillectomy - [facility] Procedures DETOXIFICATION SERVICES FOR SUBSTANCE ABUSE TREATMENT (12/26/15) Family History: States: No Known Family Hx - Social History Hx Tobacco Use: No Hx Alcohol Use: Yes Hx Substance Use: No - Immunization History Hx Tetanus Toxoid Vaccination: No (unk) Hx Influenza Vaccination: No (unk) Hx Pneumococcal Vaccination: No (unk) Review Of Systems Constitutional: Negative for: Fever Respiratory: Negative for: Shortness of Breath Gastrointestinal: Negative for: Vomiting Psych: Negative for: Suicidal ideation, Withdrawal Physical Exam - Physical Exam Appears: Non-toxic, No Acute Distress, Other (etoh on breath, malodorous) Skin: Normal Color, Warm, Dry, No Rash Head: Atraumatic, Normacephalic Eye(s): bilateral: Normal Inspection Oral Mucosa: Moist Neck: Normal ROM, Supple Chest: Symmetrical Cardiovascular: Rhythm Regular, No Friction Rub, No Murmur Respiratory: Normal Breath Sounds, No Accessory Muscle Use Gastrointestinal/Abdominal: Soft, No Tenderness Back: Normal Inspection, No CVA Tenderness Extremity: Normal ROM, No Tenderness, No Deformity, No Swelling Neurological/Psych: Oriented x3, Normal Speech, Normal Motor, Normal Sensation Gait: Steady ED Course And Treatment O2 Sat by Pulse Oximetry: 96 (RA) Pulse Ox Interpretation: Normal Medical Decision Making Medical Decision Making: On re-exam, the patient reports improvement of symptoms. Normal speech. Lungs are CTA, heart is RRR, abdomen is soft, non-tender and tolerating PO well. Ambulatory in the ED with steady gait. Disposition - Disposition Referrals: [facility] [Outside] Disposition: HOME/ ROUTINE Disposition Time: 14:48 Condition: GOOD Additional Instructions: Follow up with the medical doctor within 1-2 days. Return if worsened. Instructions: Alcohol Use - When Is Drinking a Problem? Forms: [employer] (South Korean) - Clinical Impression Clinical Impression: Alcohol abuse - Scribe Statement The provider has reviewed the documentation as recorded by the Scribe (Liseth Bañuelos) All medical record entries made by the Scribe were at my direction and personally dictated by me. I have reviewed the chart and agree that the record accurately reflects my personal performance of the history, physical exam, medical decision making, and the department course for this patient. I have also personally directed, reviewed, and agree with the discharge instructions and disposition.
== END 2017-09-08 15:29 | disposition home or self-care (01) ==
LOC: C.ER 11:59
DX: F10.10 Alcohol abuse, uncomplicated (principal); Y90.9 Presence of alcohol in blood, level not specified

== ENCOUNTER 2017-09-09 20:14 | Emergency (ER) | payer MEDICARE ==
[2017-09-09 20:14] VITALS: BMI 25.8
[2017-09-09 20:53] VITALS: TEMP 98.8; O2SAT 96
--- NOTE | 2017-09-09 21:04 | C.PDOC ---
History Of Present Illness 71 y/o male presents to the ED intoxicated, requesting a place to stay the night. Patient is well known to the ED for alcohol intoxication. He denies any homicidal or suicidal ideation. Patient offers no acute complaints. Time Seen by Provider: 09/09/17 21:03 Chief Complaint (Nursing): Abdominal Pain History Per: Patient History/Exam Limitations: no limitations Onset/Duration Of Symptoms: Hrs Current Symptoms Are (Timing): Still Present Severity: None Pain Scale Rating Of: 0 Exacerbating Factors: None Alleviating Factors: None Past Medical History Reviewed: Historical Data, Nursing Documentation, Vital Signs Vital Signs: Last Vital Signs Temp 98.8 F 09/09/17 20:50 Pulse 124 H 09/09/17 20:50 Resp 20 09/09/17 20:50 BP 139/100 H 09/09/17 20:50 Pulse Ox 96 09/09/17 21:44 - Medical History PMH: Anxiety (as per previous triage), Asthma, Back Problems, Bipolar Disorder ( as per previous triage), Depression (as per previous triage), Gastritis, HTN, Schizophrenia, Chronic Pain (Back Pain) Surgical History: Hernia Repair, Tonsillectomy - [facility] Procedures DETOXIFICATION SERVICES FOR SUBSTANCE ABUSE TREATMENT (12/26/15) Family History: States: No Known Family Hx - Social History Hx Tobacco Use: No Hx Alcohol Use: Yes Hx Substance Use: No - Immunization History Hx Tetanus Toxoid Vaccination: No (unk) Hx Influenza Vaccination: No (unk) Hx Pneumococcal Vaccination: No (unk) Review Of Systems Constitutional: Positive for: Other (alcohol intoxication) Gastrointestinal: Negative for: Nausea, Vomiting Psych: Negative for: Suicidal ideation, Withdrawal Physical Exam - Physical Exam Appears: Non-toxic, No Acute Distress, Other (Alcohol on breath) Skin: Warm, Dry Head: Normacephalic Eye(s): bilateral: Normal Inspection Oral Mucosa: Moist Neck: Trachea Midline, Supple Chest: Symmetrical Cardiovascular: Rhythm Regular Respiratory: No Rales, No Rhonchi, No Wheezing Gastrointestinal/Abdominal: Soft, No Tenderness, No Distention Back: Normal Inspection Extremity: Bilateral: Atraumatic, Normal Color And Temperature, Normal ROM Pulses: Left Dorsalis Pedis: Normal, Right Dorsalis Pedis: Normal Neurological/Psych: Oriented x3 Gait: Steady ED Course And Treatment O2 Sat by Pulse Oximetry: 96 (RA) Pulse Ox Interpretation: Normal Progress Note: Patient is alert, awake, responsive to questions. No acute complaints. Patient is clinically soberand stable for discharge home. Reevaluation Time: 22:34 Reassessment Condition: Improved Disposition Counseled Patient/Family Regarding: Studies Performed, Diagnosis, Need For Followup - Disposition Referrals: [facility] [Outside] Disposition: HOME/ ROUTINE Disposition Time: 21:03 Condition: FAIR Instructions: Alcohol Abuse and Alcoholism (DC) Forms: [employer] (Latvian) - POA Present On Arrival: None - Clinical Impression Clinical Impression: Alcohol abuse with intoxication - Scribe Statement The provider has reviewed the documentation as recorded by the Scribe (Natali Lake) Provider Attestation: All medical record entries made by the Scribe were at my direction and personally dictated by me. I have reviewed the chart and agree that the record accurately reflects my personal performance of the history, physical exam, medical decision making, and the department course for this patient. I have also personally directed, reviewed, and agree with the discharge instructions and disposition.
[2017-09-09 22:45] VITALS: BP 140/98; PULSE 96; RESP 18
== END 2017-09-09 22:46 | disposition home or self-care (01) ==
LOC: C.ER 20:14
DX: F10.129 Alcohol abuse with intoxication, unspecified (principal); F20.9 Schizophrenia, unspecified; I10 Essential (primary) hypertension

== ENCOUNTER 2017-09-10 10:37 | Emergency (ER) | payer MEDICARE ==
[2017-09-10 10:48] VITALS: BMI 28.8
[2017-09-10 10:51] VITALS: O2SAT 95
--- NOTE | 2017-09-10 11:28 | C.PDOC ---
History Of Present Illness 71 year old male is brought to the ED by ambulance for evaluation after he was found publicly intoxicated [place]. Patient is familiar to this ED and has had many prior visits for similar presentations. Patient admits to drinking earlier today and has no complaints at this time. Time Seen by Provider: 09/10/17 10:41 Chief Complaint (Nursing): Substance Abuse History Per: Patient, EMS History/Exam Limitations: intoxication Onset/Duration Of Symptoms: Hrs Current Symptoms Are (Timing): Still Present Suicide/Self Injury Attempted (Context): None Modifying Factor(s): Alcohol Associated Symptoms: denies: Suicidal Thoughts, Suicidal Plan Involuntary Hold By: None Recent travel outside of the [place]: No Additional History Per: Patient, EMS Past Medical History Reviewed: Historical Data, Nursing Documentation, Vital Signs Vital Signs: Last Vital Signs Temp 98.1 F 09/10/17 16:21 Pulse 102 H 09/10/17 16:21 Resp 18 09/10/17 16:21 BP 133/85 09/10/17 16:21 Pulse Ox 95 09/10/17 16:21 - Medical History PMH: Anxiety, Asthma, Back Problems, Bipolar Disorder (as per previous triage), Depression (as per previous triage), Gastritis, HTN, Schizophrenia, Chronic Pain (Back Pain) Surgical History: Hernia Repair, Tonsillectomy - [facility] Procedures DETOXIFICATION SERVICES FOR SUBSTANCE ABUSE TREATMENT (12/26/15) Family History: States: Unknown Family Hx - Social History Hx Tobacco Use: No Hx Alcohol Use: Yes Hx Substance Use: No - Immunization History Hx Tetanus Toxoid Vaccination: No Hx Influenza Vaccination: No Hx Pneumococcal Vaccination: No Review Of Systems Psych: Positive for: Other (EtOH intoxication ). Negative for: Suicidal ideation Physical Exam - Physical Exam Appears: Non-toxic, No Acute Distress, Other (visibly intoxicated ) Skin: Normal Color, Warm, Dry Head: Atraumatic, Normacephalic Eye(s): bilateral: Normal Inspection Oral Mucosa: Moist, Other (alcohol on breath ) Neck: Normal ROM, Supple Chest: Symmetrical, No Deformity, No Tenderness Cardiovascular: Rhythm Regular Respiratory: Normal Breath Sounds, No Rales, No Rhonchi, No Wheezing Extremity: Normal ROM, No Deformity, No Swelling Neurological/Psych: Other (arousable to touch and verbal stimuli ) Gait: Unsteady ED Course And Treatment O2 Sat by Pulse Oximetry: 95 (on RA) Pulse Ox Interpretation: Normal Disposition - Disposition Disposition: HOME/ ROUTINE Disposition Time: 16:50 Condition: STABLE Forms: [facility] (Uzbek) - Clinical Impression Clinical Impression: Alcoholism /alcohol abuse - Scribe Statement The provider has reviewed the documentation as recorded by the Scribe (Chrissy Leiva) Provider Attestation: All medical record entries made by the Scribe were at my direction and personally dictated by me. I have reviewed the chart and agree that the record accurately reflects my personal performance of the history, physical exam, medical decision making, and the department course for this patient. I have also personally directed, reviewed, and agree with the discharge instructions and disposition.
[2017-09-10 16:22] VITALS: BP 133/85; PULSE 102; RESP 18; TEMP 98.1
== END 2017-09-10 16:55 | disposition home or self-care (01) ==
LOC: C.ER 10:37
DX: F10.20 Alcohol dependence, uncomplicated (principal); F20.9 Schizophrenia, unspecified; I10 Essential (primary) hypertension

== ENCOUNTER 2017-09-11 17:58 | Emergency (ER) | payer MEDICARE ==
[2017-09-11 17:58] VITALS: BMI 28.8
[2017-09-11 18:04] VITALS: BP 113/77; PULSE 96; RESP 18; TEMP 98.7; O2SAT 98
--- NOTE | 2017-09-11 18:10 | C.PDOC ---
Time Seen by Provider: 09/11/17 18:06 Chief Complaint (Nursing): Substance Abuse Past Medical History Vital Signs: Last Vital Signs Temp 98.7 F 09/11/17 18:02 Pulse 96 H 09/11/17 18:02 Resp 18 09/11/17 18:02 BP 113/77 09/11/17 18:02 Pulse Ox 98 09/11/17 18:02 - Medical History PMH: Anxiety, Asthma, Back Problems, Bipolar Disorder (as per previous triage), Depression (as per previous triage), Gastritis, HTN, Schizophrenia, Chronic Pain (Back Pain) Surgical History: Hernia Repair, Tonsillectomy - [facility] Procedures DETOXIFICATION SERVICES FOR SUBSTANCE ABUSE TREATMENT (12/26/15) Family History: States: Unknown Family Hx - Social History Hx Tobacco Use: No Hx Alcohol Use: Yes Hx Substance Use: No - Immunization History Hx Tetanus Toxoid Vaccination: No Hx Influenza Vaccination: No Hx Pneumococcal Vaccination: No ED Course And Treatment O2 Sat by Pulse Oximetry: 98 Medical Decision Making Medical Decision Making: Typical alcohol abuse, malingering no acute injuries, many recent evals for same and grossly unchanged. Disposition Doctor Will See Patient In The: Office Counseled Patient/Family Regarding: Studies Performed, Diagnosis - Disposition Disposition: HOME/ ROUTINE Disposition Time: 18:10 Condition: GOOD - Clinical Impression Clinical Impression: Malingering, Alcohol abuse
== END 2017-09-11 18:22 | disposition home or self-care (01) ==
LOC: C.ER 17:58
DX: F19.10 Other psychoactive substance abuse, uncomplicated (principal); F10.10 Alcohol abuse, uncomplicated; Z76.5 Malingerer [conscious simulation]; F20.9 Schizophrenia, unspecified; I10 Essential (primary) hypertension

== ENCOUNTER 2017-09-11 21:07 | Emergency (ER) | payer MEDICARE ==
[2017-09-11 21:07] VITALS: BMI 28.8
[2017-09-11 21:19] VITALS: BP 105/74; O2SAT 96
--- NOTE | 2017-09-11 21:25 | C.PDOC ---
History Of Present Illness 71-year-old male, PMHx includes alcohol abuse, presents to the emergency department, looking for a place to sleep. Patient has a Hx of multiple visits to ED for alcohol intoxication. Patient was seen in ED earlier today for same complaint. Time Seen by Provider: 09/11/17 21:21 Chief Complaint (Nursing): Substance Abuse History/Exam Limitations: intoxication Current Symptoms Are (Timing): Still Present Past Medical History Reviewed: Historical Data, Nursing Documentation, Vital Signs Vital Signs: Last Vital Signs Temp 98.9 F 09/11/17 21:31 Pulse 100 H 09/11/17 21:31 Resp 20 09/11/17 21:31 BP 105/74 09/11/17 21:31 Pulse Ox 96 09/11/17 21:40 - Medical History PMH: Anxiety, Asthma, Back Problems, Bipolar Disorder (as per previous triage), Depression (as per previous triage), Gastritis, HTN, Schizophrenia, Chronic Pain (Back Pain) Surgical History: Hernia Repair, Tonsillectomy - [facility] Procedures DETOXIFICATION SERVICES FOR SUBSTANCE ABUSE TREATMENT (12/26/15) Family History: States: No Known Family Hx - Social History Hx Tobacco Use: No Hx Alcohol Use: Yes Hx Substance Use: No - Immunization History Hx Tetanus Toxoid Vaccination: No Hx Influenza Vaccination: No Hx Pneumococcal Vaccination: No Review Of Systems Cardiovascular: Negative for: Chest Pain Respiratory: Negative for: Shortness of Breath Gastrointestinal: Negative for: Vomiting Physical Exam - Physical Exam Appears: Non-toxic, No Acute Distress Skin: Warm, Dry, No Rash Head: Normacephalic Eye(s): bilateral: Normal Inspection Neck: Normal ROM Chest: Symmetrical Respiratory: No Accessory Muscle Use (no acute respiratory distress) Extremity: Normal ROM, No Deformity, No Swelling Gait: Other (unchanged from prior evaluation) ED Course And Treatment O2 Sat by Pulse Oximetry: 96 (RA) Pulse Ox Interpretation: Normal Reevaluation Time: 23:32 Reassessment Condition: Improved Disposition - Disposition Referrals: [facility] at [facility] [Outside] Disposition: HOME/ ROUTINE Disposition Time: 21:22 Condition: FAIR Instructions: Alcohol Abuse and Alcoholism (DC) Forms: [employer] (Ukrainian) - Clinical Impression Clinical Impression: Alcohol abuse, Alcohol intoxication - Scribe Statement The provider has reviewed the documentation as recorded by the Scribe (Liseth Bañuelos) All medical record entries made by the Scribe were at my direction and personally dictated by me. I have reviewed the chart and agree that the record accurately reflects my personal performance of the history, physical exam, medical decision making, and the department course for this patient. I have also personally directed, reviewed, and agree with the discharge instructions and disposition.
--- NOTE | 2017-09-11 21:31 | C.PDOC ---
Time Seen by Provider: 09/11/17 21:21 Chief Complaint (Nursing): Substance Abuse Past Medical History Vital Signs: Last Vital Signs Temp 99.2 F 09/11/17 21:14 Pulse 101 H 09/11/17 21:14 Resp 16 09/11/17 21:14 BP 105/74 09/11/17 21:14 Pulse Ox 96 09/11/17 21:14 - Medical History PMH: Anxiety, Asthma, Back Problems, Bipolar Disorder (as per previous triage), Depression (as per previous triage), Gastritis, HTN, Schizophrenia, Chronic Pain (Back Pain) Surgical History: Hernia Repair, Tonsillectomy - [facility] Procedures DETOXIFICATION SERVICES FOR SUBSTANCE ABUSE TREATMENT (12/26/15) Family History: States: Unknown Family Hx - Social History Hx Tobacco Use: No Hx Alcohol Use: Yes Hx Substance Use: No - Immunization History Hx Tetanus Toxoid Vaccination: No Hx Influenza Vaccination: No Hx Pneumococcal Vaccination: No ED Course And Treatment O2 Sat by Pulse Oximetry: 96 Disposition Counseled Patient/Family Regarding: Studies Performed, Diagnosis, Need For Followup - Disposition Referrals: [facility] at [facility] [Outside] Disposition: HOME/ ROUTINE Disposition Time: 21:22 Condition: FAIR Instructions: Alcohol Abuse and Alcoholism (DC) - Clinical Impression Clinical Impression: Alcohol abuse, Alcohol intoxication
[2017-09-11 21:32] VITALS: PULSE 100; RESP 20; TEMP 98.9
== END 2017-09-11 21:32 | disposition home or self-care (01) ==
LOC: C.ER 21:07
DX: F10.129 Alcohol abuse with intoxication, unspecified (principal); F20.9 Schizophrenia, unspecified; I10 Essential (primary) hypertension

== ENCOUNTER 2017-09-12 12:22 | Emergency (ER) | payer MEDICARE ==
[2017-09-12 12:23] VITALS: BMI 28.8
[2017-09-12 12:29] VITALS: BP 120/80; PULSE 88; RESP 16; TEMP 99.6; O2SAT 98
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
== END 2017-09-12 16:39 | disposition home or self-care (01) ==
LOC: C.ER 12:22
DX: F10.129 Alcohol abuse with intoxication, unspecified (principal); Y90.9 Presence of alcohol in blood, level not specified; Z59.0 Homelessness

== ENCOUNTER 2017-09-12 21:58 | Emergency (ER) | payer MEDICARE ==
[2017-09-12 21:58] VITALS: BMI 28.8
[2017-09-12 22:08] VITALS: O2SAT 95
[2017-09-13 02:03] VITALS: PULSE 89
[2017-09-13 04:25] VITALS: BP 113/79; RESP 20; TEMP 98.8
--- NOTE | 2017-09-13 04:59 | C.PDOC ---
History Of Present Illness Pt was BIBEMS due to public alcohol intoxication. Time Seen by Provider: 09/12/17 22:15 Chief Complaint (Nursing): Substance Abuse History Per: Patient, EMS History/Exam Limitations: intoxication Onset/Duration Of Symptoms: Unknown (tonight) Current Symptoms Are (Timing): Still Present Suicide/Self Injury Attempted (Context): None Modifying Factor(s): Alcohol Severity: Severe Associated Symptoms: denies: Suicidal Thoughts, Suicidal Plan Additional History Per: Prior Records Past Medical History Reviewed: Historical Data, Nursing Documentation, Vital Signs Vital Signs: Last Vital Signs Temp 98.8 F 09/13/17 04:24 Pulse 89 09/13/17 04:24 Resp 20 09/13/17 04:24 BP 113/79 09/13/17 04:24 Pulse Ox 95 09/13/17 04:59 - Medical History PMH: Anxiety, Asthma, Back Problems, Bipolar Disorder (as per previous triage), Depression (as per previous triage), Gastritis, HTN, Schizophrenia, Chronic Pain (Back Pain) Other PMH: Alcohol abuse Surgical History: Hernia Repair, Tonsillectomy - [facility] Procedures DETOXIFICATION SERVICES FOR SUBSTANCE ABUSE TREATMENT (12/26/15) Family History: States: Unknown Family Hx - Social History Hx Tobacco Use: No Hx Alcohol Use: Yes Hx Substance Use: No - Immunization History Hx Tetanus Toxoid Vaccination: No Hx Influenza Vaccination: No Hx Pneumococcal Vaccination: No Review Of Systems Review Of Systems: ROS cannot be obtained secondary to pt's inabilty to answer questions. Physical Exam - Physical Exam Appears: Non-toxic, No Acute Distress, Unkempt, Other (AOB, intoxicated) Skin: Normal Color, Warm, Dry Head: Atraumatic, Normacephalic Eye(s): bilateral: PERRL Neck: Normal ROM, No Midline Cervical Tenderness, No Step Off Deformity, Supple Cardiovascular: Rhythm Regular Respiratory: Normal Breath Sounds, No Accessory Muscle Use Gastrointestinal/Abdominal: Soft, No Tenderness Extremity: Normal ROM, No Deformity Neurological/Psych: Eyes Open With Command, Slow To Respond With Command, Other (Moving all extremities) Gait: Unable To Assess ED Course And Treatment O2 Sat by Pulse Oximetry: 95 Pulse Ox Interpretation: Normal Progress Note: Pt is now AAOx3. Steady gait. Clinically sober. Reevaluation Time: 05:11 Reassessment Condition: Improved Disposition Counseled Patient/Family Regarding: Diagnosis, Need For Followup - Disposition Referrals: [facility] at [facility] [Outside] Disposition: HOME/ ROUTINE Disposition Time: 05:12 Condition: IMPROVED Additional Instructions: Follow up with your doctor or in the clinic. Return to the ER if you develop worsening of symptoms or if you have any other concerns. Instructions: Alcohol Abuse and Alcoholism (DC) - Clinical Impression Clinical Impression: Alcohol abuse
== END 2017-09-13 05:16 | disposition home or self-care (01) ==
LOC: C.ER 21:58
DX: F10.129 Alcohol abuse with intoxication, unspecified (principal); Y90.9 Presence of alcohol in blood, level not specified

== ENCOUNTER 2017-09-14 21:03 | Emergency (ER) | payer MEDICARE ==
[2017-09-14 21:03] VITALS: BMI 28.8
--- NOTE | 2017-09-14 21:09 | C.PDOC ---
History Of Present Illness 71 year old male is brought to the ED by EMS after being found intoxicated. Patient admits to drinking alcohol today. Patient denies SI/HI, hallucinations, fever, chills, nausea, vomit, CP, SOB. Time Seen by Provider: 09/14/17 21:09 Chief Complaint (Nursing): Substance Abuse History Per: Patient, EMS Onset/Duration Of Symptoms: Hrs Current Symptoms Are (Timing): Still Present Suicide/Self Injury Attempted (Context): None Modifying Factor(s): Alcohol Associated Symptoms: denies: Depression, Suicidal Thoughts, Suicidal Plan Recent travel outside of the [place]: No Additional History Per: Patient, EMS Past Medical History Reviewed: Historical Data, Nursing Documentation, Vital Signs Vital Signs: Last Vital Signs Temp 98.1 F 09/14/17 21:06 Pulse 84 09/14/17 21:06 Resp 16 09/14/17 21:06 BP 121/84 09/14/17 21:06 Pulse Ox 98 09/14/17 21:59 - Medical History PMH: Anxiety, Asthma, Back Problems, Bipolar Disorder (as per previous triage), Depression (as per previous triage), Gastritis, HTN, Schizophrenia, Chronic Pain (Back Pain) Surgical History: Hernia Repair, Tonsillectomy - [facility] Procedures DETOXIFICATION SERVICES FOR SUBSTANCE ABUSE TREATMENT (12/26/15) Family History: States: Unknown Family Hx - Social History Hx Tobacco Use: No Hx Alcohol Use: Yes Hx Substance Use: No - Immunization History Hx Tetanus Toxoid Vaccination: No Hx Influenza Vaccination: No Hx Pneumococcal Vaccination: No Review Of Systems Constitutional: Negative for: Fever, Chills Cardiovascular: Negative for: Chest Pain Respiratory: Negative for: Shortness of Breath Gastrointestinal: Negative for: Nausea, Vomiting Skin: Negative for: Rash Psych: Negative for: Depression, Suicidal ideation Physical Exam - Physical Exam Appears: Non-toxic, No Acute Distress Skin: Warm, Dry Head: Normacephalic Eye(s): bilateral: Normal Inspection Oral Mucosa: Moist Neck: Supple Chest: Symmetrical Cardiovascular: Rhythm Regular Respiratory: No Rales, No Rhonchi, No Wheezing Gastrointestinal/Abdominal: Soft, No Tenderness, No Guarding, No Rebound Back: Normal Inspection Extremity: Bilateral: Atraumatic, Normal Color And Temperature, Normal ROM Neurological/Psych: Oriented x3 Gait: Unsteady (due to alcohol consumption) ED Course And Treatment O2 Sat by Pulse Oximetry: 98 (ON RA) Pulse Ox Interpretation: Normal Reevaluation Time: 05:17 Reassessment Condition: Improved Disposition Counseled Patient/Family Regarding: Studies Performed, Diagnosis - Disposition Disposition: HOME/ ROUTINE Disposition Time: 21:09 Condition: FAIR Instructions: Alcohol Abuse and Alcoholism (DC) Forms: [employer] (Nepali) - Clinical Impression Clinical Impression: Alcohol abuse with intoxication - Scribe Statement The provider has reviewed the documentation as recorded by the Scribe Eulogio Sanchez All medical record entries made by the Scribe were at my direction and personally dictated by me. I have reviewed the chart and agree that the record accurately reflects my personal performance of the history, physical exam, medical decision making, and the department course for this patient. I have also personally directed, reviewed, and agree with the discharge instructions and disposition.
[2017-09-14 21:16] VITALS: BP 121/84; PULSE 84; RESP 16; TEMP 98.1; O2SAT 98
== END 2017-09-15 05:27 | disposition home or self-care (01) ==
LOC: C.ER 21:03
DX: F10.129 Alcohol abuse with intoxication, unspecified (principal)

== ENCOUNTER 2017-09-16 17:01 | Emergency (ER) | payer MEDICARE ==
[2017-09-16 17:01] VITALS: BMI 28.8
--- NOTE | 2017-09-16 17:25 | C.PDOC ---
History Of Present Illness 71 y/o male brought to ER by ambulance for public intoxication. Patient admits to drinking ETOH. Patient denies having suicidal ideation ,homicidal ideation, and active physical complaints. Time Seen by Provider: 09/16/17 17:15 Chief Complaint (Nursing): Substance Abuse History Per: Patient History/Exam Limitations: no limitations Past Medical History Reviewed: Historical Data, Nursing Documentation, Vital Signs - Medical History PMH: Anxiety, Asthma, Back Problems, Bipolar Disorder (as per previous triage), Depression (as per previous triage), Gastritis, HTN, Schizophrenia, Chronic Pain (Back Pain) Surgical History: Hernia Repair, Tonsillectomy - [facility] Procedures DETOXIFICATION SERVICES FOR SUBSTANCE ABUSE TREATMENT (12/26/15) Family History: States: No Known Family Hx - Social History Hx Tobacco Use: No Hx Alcohol Use: Yes Hx Substance Use: No - Immunization History Hx Tetanus Toxoid Vaccination: No Hx Influenza Vaccination: No Hx Pneumococcal Vaccination: No Review Of Systems Except As Marked, All Systems Reviewed And Found Negative. Constitutional: Negative for: Fever, Chills Physical Exam - Physical Exam Appears: No Acute Distress Skin: Normal Color, Warm, Dry Head: Atraumatic, Normacephalic Eye(s): bilateral: Normal Inspection Nose: Normal Oral Mucosa: Moist, Other (ETOH on breath) Neck: Supple Chest: Symmetrical Cardiovascular: Rhythm Regular Respiratory: Normal Breath Sounds, No Rales, No Rhonchi, No Wheezing Gastrointestinal/Abdominal: Normal Exam, Soft, No Tenderness Neurological/Psych: Oriented x3, Normal Speech Medical Decision Making Medical Decision Making: Progress: Pt requested and provided sandwich. Pt has been diagnosed with ETOH intoxication and discharged. Pt has been instructed to follow up with PMD in 2 days. Disposition Counseled Patient/Family Regarding: Studies Performed, Diagnosis - Disposition Disposition: HOME/ ROUTINE Disposition Time: 17:24 Condition: STABLE Additional Instructions: follow up with your doctor in 2 days call to make an appointment take medications as prescribed return to ER if symptoms worsens or progress Forms: [employer] (Latvian), General Discharge Instructions - Clinical Impression Clinical Impression: Alcoholism /alcohol abuse - Scribe Statement The provider has reviewed the documentation as recorded by the [place] Provider Attestation: All medical record entries made by the Scribe were at my direction and personally dictated by me. I have reviewed the chart and agree that the record accurately reflects my personal performance of the history, physical exam, medical decision making, and the department course for this patient. I have also personally directed, reviewed, and agree with the discharge instructions and disposition.
== END 2017-09-16 17:41 | disposition home or self-care (01) ==
LOC: C.ER 17:01
DX: F10.229 Alcohol dependence with intoxication, unspecified (principal)

== ENCOUNTER 2017-09-16 18:50 | Emergency (ER) | payer MEDICARE ==
[2017-09-16 18:51] VITALS: BMI 28.8
--- NOTE | 2017-09-16 19:06 | C.PDOC ---
History Of Present Illness Patient brought in via EMS after being found intoxicated in public. Denies any physical complaints at this time. Time Seen by Provider: 09/16/17 19:04 Chief Complaint (Nursing): Substance Abuse History Per: Patient, EMS History/Exam Limitations: no limitations Onset/Duration Of Symptoms: Hrs Current Symptoms Are (Timing): Still Present Suicide/Self Injury Attempted (Context): None Modifying Factor(s): Alcohol Severity: None Pain Scale Rating Of: 0 Associated Symptoms: denies: Depression, Suicidal Thoughts Involuntary Hold By: None Recent travel outside of the [place]: No Past Medical History Reviewed: Historical Data, Nursing Documentation, Vital Signs Vital Signs: Last Vital Signs Temp 99.5 F 09/16/17 19:12 Pulse 98 H 09/16/17 19:12 Resp 16 09/16/17 19:12 BP 88/50 L 09/16/17 19:12 Pulse Ox 94 L 09/16/17 19:12 - Medical History PMH: Anxiety, Asthma, Back Problems, Bipolar Disorder (as per previous triage), Depression (as per previous triage), Gastritis, HTN, Schizophrenia, Chronic Pain (Back Pain) Surgical History: Hernia Repair, Tonsillectomy - [facility] Procedures DETOXIFICATION SERVICES FOR SUBSTANCE ABUSE TREATMENT (12/26/15) Family History: States: No Known Family Hx - Social History Hx Tobacco Use: No Hx Alcohol Use: Yes Hx Substance Use: No - Immunization History Hx Tetanus Toxoid Vaccination: No Hx Influenza Vaccination: No Hx Pneumococcal Vaccination: No Review Of Systems Constitutional: Negative for: Fever, Chills Cardiovascular: Negative for: Chest Pain, Palpitations Respiratory: Negative for: Cough, Shortness of Breath Gastrointestinal: Negative for: Nausea, Vomiting Physical Exam - Physical Exam Appears: Non-toxic, No Acute Distress, Other (ETOH on breath, no sign of injury) Skin: Warm, Dry Head: Normacephalic Oral Mucosa: Moist Chest: Symmetrical, No Tenderness Cardiovascular: Rhythm Regular Respiratory: No Rales, No Rhonchi, No Wheezing Gastrointestinal/Abdominal: Soft, No Tenderness Neurological/Psych: Oriented x3 ED Course And Treatment O2 Sat by Pulse Oximetry: 94 Pulse Ox Interpretation: Normal Reevaluation Time: 20:40 Reassessment Condition: Improved Disposition Counseled Patient/Family Regarding: Studies Performed, Diagnosis, Need For Followup - Disposition Referrals: [facility] [Outside] Disposition: HOME/ ROUTINE Disposition Time: 19:05 Condition: FAIR Instructions: Alcohol Abuse and Alcoholism (DC) Forms: [employer] (Thai) - Clinical Impression Clinical Impression: Alcohol abuse with intoxication - Scribe Statement The provider has reviewed the documentation as recorded by the Scribjackelyn Huang All medical record entries made by the Scribe were at my direction and personally dictated by me. I have reviewed the chart and agree that the record accurately reflects my personal performance of the history, physical exam, medical decision making, and the department course for this patient. I have also personally directed, reviewed, and agree with the discharge instructions and disposition.
[2017-09-16 20:42] VITALS: BP 100/61; PULSE 82; RESP 20; TEMP 98.8; O2SAT 98
== END 2017-09-16 20:42 | disposition home or self-care (01) ==
LOC: C.ER 18:50
DX: F10.129 Alcohol abuse with intoxication, unspecified (principal)

== ENCOUNTER 2017-09-17 16:09 | Emergency (ER) | payer MEDICARE ==
[2017-09-17 16:09] VITALS: BMI 28.8
--- NOTE | 2017-09-17 17:52 | C.PDOC ---
History Of Present Illness 71 year old male is brought to the ED by ambulance for evaluation of alcohol intoxication. Patient is familiar to this ED and has had multiple prior visits with similar presentations. Patient admits to drinking earlier today and has no complaints at this time. Time Seen by Provider: 09/17/17 16:21 Chief Complaint (Nursing): Substance Abuse History Per: Patient, EMS History/Exam Limitations: intoxication Onset/Duration Of Symptoms: Hrs, Waxing/Waning Suicide/Self Injury Attempted (Context): None Modifying Factor(s): Alcohol Involuntary Hold By: None Recent travel outside of the [place]: No Additional History Per: Patient, EMS Past Medical History Reviewed: Historical Data, Nursing Documentation, Vital Signs Vital Signs: Last Vital Signs Temp 98 F 09/17/17 20:46 Pulse 80 09/18/17 00:03 Resp 14 09/18/17 00:03 BP 110/70 09/18/17 00:03 Pulse Ox 97 09/18/17 00:03 - Medical History PMH: Anxiety, Asthma, Back Problems, Bipolar Disorder (as per previous triage), Depression (as per previous triage), Gastritis, HTN, Schizophrenia, Chronic Pain (Back Pain) Surgical History: Hernia Repair, Tonsillectomy - [facility] Procedures DETOXIFICATION SERVICES FOR SUBSTANCE ABUSE TREATMENT (12/26/15) Family History: States: Unknown Family Hx - Social History Hx Tobacco Use: No Hx Alcohol Use: Yes Hx Substance Use: No - Immunization History Hx Tetanus Toxoid Vaccination: No Hx Influenza Vaccination: No Hx Pneumococcal Vaccination: No Review Of Systems Psych: Positive for: Other (EtOH intoxication) Physical Exam - Physical Exam Appears: Non-toxic, No Acute Distress, Other (visibly intoxicated) Skin: Normal Color, Warm, Dry Head: Atraumatic, Normacephalic Eye(s): bilateral: Normal Inspection Oral Mucosa: Moist, Other (alcohol on breath ) Neck: Supple Chest: Symmetrical, No Deformity, No Tenderness Cardiovascular: Rhythm Regular, No Murmur Respiratory: Normal Breath Sounds, No Rales, No Rhonchi, No Wheezing Extremity: Normal ROM, Capillary Refill (less than 2 seconds ) Neurological/Psych: No Normal Speech (slurred), Other (arousable to touch and verbal stimuli ) Gait: Unsteady ED Course And Treatment O2 Sat by Pulse Oximetry: 98 (on RA) Pulse Ox Interpretation: Normal Progress Note: labs ordered and reviewed. Disposition - Disposition Disposition Time: 00:45 Condition: STABLE Forms: [facility] (German) - Clinical Impression Clinical Impression: Alcohol intoxication, Homelessness - Scribe Statement The provider has reviewed the documentation as recorded by the Scribe (Chrissy Leiva) Provider Attestation: All medical record entries made by the Scribe were at my direction and personally dictated by me. I have reviewed the chart and agree that the record accurately reflects my personal performance of the history, physical exam, medical decision making, and the department course for this patient. I have also personally directed, reviewed, and agree with the discharge instructions and disposition. Physician Patient Turnover Patient Signed Over To: Cleve Cho Handoff Comments: pending sobriety
[2017-09-18 00:04] VITALS: PULSE 80; RESP 14
[2017-09-18 05:41] VITALS: BP 130/70; TEMP 97; O2SAT 97
== END 2017-09-18 05:41 | disposition home or self-care (01) ==
LOC: C.ER 16:09
DX: F10.129 Alcohol abuse with intoxication, unspecified (principal); Y90.9 Presence of alcohol in blood, level not specified; Z59.0 Homelessness

== ENCOUNTER 2017-09-19 06:31 | Emergency (ER) | payer MEDICARE ==
[2017-09-19 06:32] VITALS: BMI 28.8
[2017-09-19 06:38] VITALS: BP 115/78; PULSE 63; RESP 22; TEMP 98; O2SAT 98
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
== END 2017-09-19 08:12 | disposition home or self-care (01) ==
LOC: C.ER 06:31 → SUPCPDRO 06:31 → C.ER 08:12
DX: F10.129 Alcohol abuse with intoxication, unspecified (principal); Y90.9 Presence of alcohol in blood, level not specified

== ENCOUNTER 2017-09-19 14:31 | Emergency (ER) | payer MEDICARE ==
--- NOTE | 2017-09-19 15:07 | C.PDOC ---
History Of Present Illness 71-year-old male, brought to the emergency department with complaints of public intoxication. Patient has a Hx of multiple visits to ED for same complaint. The patient reports no complaints at this time. Time Seen by Provider: 09/19/17 15:06 Chief Complaint (Nursing): Substance Abuse History Per: EMS History/Exam Limitations: intoxication Past Medical History Reviewed: Historical Data, Nursing Documentation, Vital Signs Vital Signs: Last Vital Signs Temp 98.5 F 09/19/17 14:44 Pulse 105 H 09/19/17 14:44 Resp 20 09/19/17 14:44 BP 100/64 09/19/17 14:44 Pulse Ox 95 09/19/17 16:02 - Medical History PMH: Anxiety, Asthma, Back Problems, Bipolar Disorder (as per previous triage), Depression (as per previous triage), Gastritis, HTN, Schizophrenia, Chronic Pain (Back Pain) Surgical History: Hernia Repair, Tonsillectomy - [facility] Procedures DETOXIFICATION SERVICES FOR SUBSTANCE ABUSE TREATMENT (12/26/15) Family History: States: No Known Family Hx - Social History Hx Tobacco Use: No Hx Alcohol Use: Yes (beer) Hx Substance Use: No - Immunization History Hx Tetanus Toxoid Vaccination: No Hx Influenza Vaccination: No Hx Pneumococcal Vaccination: No Review Of Systems Constitutional: Negative for: Fever Cardiovascular: Negative for: Chest Pain Respiratory: Negative for: Shortness of Breath Gastrointestinal: Negative for: Vomiting Psych: Negative for: Withdrawal Physical Exam - Physical Exam Appears: Non-toxic, No Acute Distress, Other (malodorous, etoh on breath) Skin: Warm, Dry, No Rash Head: Atraumatic, Normacephalic Eye(s): bilateral: Normal Inspection Nose: Normal Oral Mucosa: Moist Lips: Normal Appearing Neck: Normal ROM Cardiovascular: Rhythm Regular, No Murmur Respiratory: Normal Breath Sounds, No Accessory Muscle Use Extremity: Normal ROM, No Deformity, No Swelling Neurological/Psych: Oriented x3, Normal Speech ED Course And Treatment O2 Sat by Pulse Oximetry: 95 (RA) Pulse Ox Interpretation: Normal Medical Decision Making Medical Decision Making: typical malingering, alcohol abuse no acute injuries/changes ok for d/c. Disposition Doctor Will See Patient In The: Office Counseled Patient/Family Regarding: Studies Performed, Diagnosis - Disposition Referrals: [facility] [Outside] [facility] [Outside] [facility] [Outside] Disposition: HOME/ ROUTINE Disposition Time: 15:07 Condition: GOOD Additional Instructions: avoid alcohol abuse Seek nightly jail placement Seek outpatient psych services. Instructions: Alcohol Abuse and Alcoholism (DC) Forms: [employer] (Lao) - Clinical Impression Clinical Impression: Malingering, Alcoholism /alcohol abuse - Scribe Statement The provider has reviewed the documentation as recorded by the Scribe (Liseth Bañuelos) All medical record entries made by the Scribe were at my direction and personally dictated by me. I have reviewed the chart and agree that the record accurately reflects my personal performance of the history, physical exam, medical decision making, and the department course for this patient. I have also personally directed, reviewed, and agree with the discharge instructions and disposition.
[2017-09-19 15:19] VITALS: BMI 24.3
[2017-09-19 16:58] VITALS: BP 111/79; PULSE 75; RESP 18; TEMP 97.7; O2SAT 98
== END 2017-09-19 17:05 | disposition home or self-care (01) ==
LOC: C.ER 14:31
DX: F10.229 Alcohol dependence with intoxication, unspecified (principal); Y90.9 Presence of alcohol in blood, level not specified; Z76.5 Malingerer [conscious simulation]

== ENCOUNTER 2017-09-20 18:52 | Emergency (ER) | payer MEDICARE ==
[2017-09-20 18:53] VITALS: BMI 28.8
--- NOTE | 2017-09-20 19:44 | C.PDOC ---
History Of Present Illness 71 year old male presents to the emergency department after being brought in by ambulance. Patient was found sleeping on the street and had defecated on himself. Patient denies drinking alcohol today but a bottle of vodka was found in his pocket upon being brought in. Chief Complaint (Nursing): Substance Abuse History Per: Patient History/Exam Limitations: intoxication Onset/Duration Of Symptoms: Hrs Current Symptoms Are (Timing): Still Present Modifying Factor(s): Alcohol Past Medical History Vital Signs: Last Vital Signs Temp 98.2 F 09/21/17 02:20 Pulse 91 H 09/21/17 05:18 Resp 19 09/21/17 05:18 BP 137/86 09/21/17 02:20 Pulse Ox 97 09/21/17 05:18 - Medical History PMH: Anxiety, Asthma, Back Problems, Bipolar Disorder (as per previous triage), Depression (as per previous triage), Gastritis, HTN, Schizophrenia, Chronic Pain (Back Pain) Surgical History: Hernia Repair, Tonsillectomy - [facility] Procedures DETOXIFICATION SERVICES FOR SUBSTANCE ABUSE TREATMENT (12/26/15) Family History: States: No Known Family Hx - Social History Hx Tobacco Use: No Hx Alcohol Use: Yes Hx Substance Use: No - Immunization History Hx Tetanus Toxoid Vaccination: No Hx Influenza Vaccination: No Hx Pneumococcal Vaccination: No Review Of Systems Review Of Systems: ROS cannot be obtained secondary to pt's inabilty to answer questions. Physical Exam - Physical Exam Appears: Non-toxic, No Acute Distress, Unkempt Skin: Warm, Dry Head: Atraumatic, Normacephalic Eye(s): bilateral: Other (conjunctival injection) Neck: Supple Chest: Symmetrical Cardiovascular: Rhythm Regular, No Murmur Respiratory: Normal Breath Sounds (clear to auscultation), No Rales, No Rhonchi , No Wheezing Gastrointestinal/Abdominal: Soft, No Tenderness Extremity: Normal ROM (in all extremities) ED Course And Treatment O2 Sat by Pulse Oximetry: 98 (RA) Pulse Ox Interpretation: Normal Medical Decision Making Medical Decision Making: Impression: Alcohol intoxication Patient to be discharged when clinically sober. Disposition - Disposition Referrals: [facility] [Outside] Disposition: HOME/ ROUTINE Disposition Time: 22:53 Condition: FAIR Instructions: Alcohol Use - When Is Drinking a Problem? Forms: [employer] (Amharic) Print Language: IRISH - Clinical Impression Clinical Impression: Intoxication - Scribe Statement The provider has reviewed the documentation as recorded by the Scribe (Saran Ruiz) Provider Attestation: All medical record entries made by the Scribe were at my direction and personally dictated by me. I have reviewed the chart and agree that the record accurately reflects my personal performance of the history, physical exam, medical decision making, and the department course for this patient. I have also personally directed, reviewed, and agree with the discharge instructions and disposition.
[2017-09-21 03:01] VITALS: BP 137/86; RESP 19; TEMP 98.2
[2017-09-21 05:22] VITALS: PULSE 91
[2017-09-21 22:54] VITALS: O2SAT 98
== END 2017-09-21 05:42 | disposition home or self-care (01) ==
LOC: C.ER 18:52
DX: F10.129 Alcohol abuse with intoxication, unspecified (principal); F20.9 Schizophrenia, unspecified; I10 Essential (primary) hypertension

== ENCOUNTER 2017-09-24 16:24 | Emergency (ER) | payer MEDICARE ==
[2017-09-24 16:24] VITALS: BMI 28.8
--- NOTE | 2017-09-24 17:40 | C.PDOC ---
History Of Present Illness 71yo male, well known to ER and provider, brought to ER by EMS for public intoxication. Patient denies any medical complaints. Time Seen by Provider: 09/24/17 16:34 Chief Complaint (Nursing): Substance Abuse History Per: EMS History/Exam Limitations: no limitations Modifying Factor(s): Alcohol Past Medical History Reviewed: Historical Data, Nursing Documentation, Vital Signs Vital Signs: Last Vital Signs Temp 98.6 F 09/25/17 00:21 Pulse 95 H 09/25/17 00:21 Resp 17 09/25/17 00:21 BP 131/78 09/25/17 00:21 Pulse Ox 98 09/25/17 00:21 - Medical History PMH: Anxiety, Asthma, Back Problems, Bipolar Disorder (as per previous triage), Depression (as per previous triage), Gastritis, HTN, Schizophrenia, Chronic Pain (Back Pain) Surgical History: Hernia Repair, Tonsillectomy - [facility] Procedures DETOXIFICATION SERVICES FOR SUBSTANCE ABUSE TREATMENT (12/26/15) Family History: States: Unknown Family Hx - Social History Hx Tobacco Use: No Hx Alcohol Use: Yes Hx Substance Use: No - Immunization History Hx Tetanus Toxoid Vaccination: No Hx Influenza Vaccination: No Hx Pneumococcal Vaccination: No Review Of Systems Except As Marked, All Systems Reviewed And Found Negative. Constitutional: Negative for: Fever, Chills Cardiovascular: Negative for: Chest Pain Respiratory: Negative for: Shortness of Breath Gastrointestinal: Negative for: Abdominal Pain Psych: Positive for: Other (alcohol use) Physical Exam - Physical Exam Appears: Non-toxic, No Acute Distress Skin: Normal Color Head: Normacephalic Oral Mucosa: Moist, Other (alcohol on breath) Neck: Supple Chest: Symmetrical Cardiovascular: Rhythm Regular Respiratory: Normal Breath Sounds Extremity: No Pedal Edema, No Deformity Neurological/Psych: Oriented x3 Gait: Unsteady ED Course And Treatment Progress Note: Patient ate a sandwich and drank juice and went to sleep. He remains quiet and resting. Medical Decision Making Medical Decision Making: Plan: -- Patient observed until clinically sober Progress: Disposition - Disposition Disposition Time: 00:33 Condition: STABLE - Clinical Impression Clinical Impression: Alcohol intoxication, Homelessness - Scribe Statement The provider has reviewed the documentation as recorded by the Scribe (Sirena Ramsey) Provider Attestation: All medical record entries made by the Scribe were at my direction and personally dictated by me. I have reviewed the chart and agree that the record accurately reflects my personal performance of the history, physical exam, medical decision making, and the department course for this patient. I have also personally directed, reviewed, and agree with the discharge instructions and disposition. Physician Patient Turnover Patient Signed Over To: Cleve Cho Handoff Comments: Homeless and pending sobriety. Patient to sleep in ED unless the need for a bed arises.
[2017-09-25 00:22] VITALS: RESP 17
[2017-09-25 04:51] VITALS: BP 151/83; PULSE 100; TEMP 98.3; O2SAT 99
== END 2017-09-25 04:52 | disposition home or self-care (01) ==
LOC: C.ER 16:24
DX: F10.129 Alcohol abuse with intoxication, unspecified (principal); Z59.0 Homelessness; I10 Essential (primary) hypertension; F20.9 Schizophrenia, unspecified

== ENCOUNTER 2017-09-26 18:26 | Emergency (ER) | payer MEDICARE ==
[2017-09-26 18:26] VITALS: BMI 28.8
[2017-09-26 18:29] VITALS: BP 102/67; PULSE 87; RESP 18; TEMP 98.6; O2SAT 96
--- NOTE | 2017-09-26 20:24 | C.PDOC ---
History Of Present Illness 71 year old male is brought to the ED by ambulance for evaluation of public alcohol intoxication. Patient is familiar to this ED and has had many prior visits for similar complaints. He admits to drinking earlier today and has no complaints at this time. Time Seen by Provider: 09/26/17 19:30 Chief Complaint (Nursing): Substance Abuse History Per: Patient, EMS History/Exam Limitations: intoxication Onset/Duration Of Symptoms: Hrs Current Symptoms Are (Timing): Still Present Suicide/Self Injury Attempted (Context): None Modifying Factor(s): Alcohol Associated Symptoms: denies: Suicidal Thoughts, Suicidal Plan Involuntary Hold By: None Recent travel outside of the [place]: No Additional History Per: Patient Past Medical History Reviewed: Historical Data, Nursing Documentation, Vital Signs Vital Signs: Last Vital Signs Temp 98.6 F 09/26/17 18:28 Pulse 87 09/26/17 18:28 Resp 18 09/26/17 18:28 BP 102/67 09/26/17 18:28 Pulse Ox 96 09/26/17 20:24 - Medical History PMH: Anxiety, Asthma, Back Problems, Bipolar Disorder (as per previous triage), Depression (as per previous triage), Gastritis, HTN, Schizophrenia, Chronic Pain (Back Pain) Surgical History: Hernia Repair, T[facility]illectomy - [facility] Procedures DETOXIFICATION SERVICES FOR SUBSTANCE ABUSE TREATMENT (12/26/15) Family History: States: Unknown Family Hx - Social History Hx Tobacco Use: No Hx Alcohol Use: Yes Hx Substance Use: No - Immunization History Hx Tetanus Toxoid Vaccination: No Hx Influenza Vaccination: No Hx Pneumococcal Vaccination: No Review Of Systems Psych: Positive for: Other (EtOH intoxication ) Physical Exam - Physical Exam Appears: Non-toxic, No Acute Distress, Other (visibly intoxicate ) Skin: Normal Color, Warm, Dry Head: Atraumatic, Normacephalic Eye(s): bilateral: Normal Inspection Oral Mucosa: Moist, Other (alcohol on breath ) Neck: Supple Chest: Symmetrical, No Deformity, No Tenderness Cardiovascular: Rhythm Regular, No Murmur Respiratory: Normal Breath Sounds, No Rales, No Rhonchi, No Wheezing Extremity: Normal ROM, Capillary Refill (less than 2 seconds ) Neurological/Psych: Other (awake, alert and arousable to touch and verbal stimuli ) Gait: Unsteady ED Course And Treatment O2 Sat by Pulse Oximetry: 96 (on RA) Pulse Ox Interpretation: Normal Medical Decision Making Medical Decision Making: typical malingering, no acute issues last eval for same 6/6 Disposition Doctor Will See Patient In The: Office Counseled Patient/Family Regarding: Studies Performed, Diagnosis - Disposition Referrals: Alcoholics Anonymous [Outside] [facility] [Outside] [facility] [Outside] [facility] [Outside] [facility] [Outside] Disposition: HOME/ ROUTINE Disposition Time: 20:24 Condition: GOOD Instructions: Alcohol Abuse and Alcoholism (DC) Forms: [employer] (Burundian) - Clinical Impression Clinical Impression: Alcohol abuse, Malingering - Scribe Statement The provider has reviewed the documentation as recorded by the Scribe (Chrissy Leiva) Provider Attestation: All medical record entries made by the Scribe were at my direction and personally dictated by me. I have reviewed the chart and agree that the record accurately reflects my personal performance of the history, physical exam, medical decision making, and the department course for this patient. I have also personally directed, reviewed, and agree with the discharge instructions and disposition.
== END 2017-09-26 20:36 | disposition home or self-care (01) ==
LOC: C.ER 18:26
DX: F10.10 Alcohol abuse, uncomplicated (principal); Z76.5 Malingerer [conscious simulation]

== ENCOUNTER 2017-09-27 20:31 | Emergency (ER) | payer MEDICARE ==
[2017-09-27 20:31] VITALS: BMI 28.8
--- NOTE | 2017-09-27 23:47 | C.PDOC ---
History Of Present Illness Pt was BIBEMS due to public alcohol intoxication. Time Seen by Provider: 09/27/17 20:38 Chief Complaint (Nursing): Substance Abuse History Per: Patient, EMS History/Exam Limitations: intoxication Onset/Duration Of Symptoms: Unknown Current Symptoms Are (Timing): Still Present Suicide/Self Injury Attempted (Context): None Modifying Factor(s): Alcohol Severity: Severe Associated Symptoms: denies: Suicidal Thoughts, Suicidal Plan Additional History Per: Prior Records Past Medical History Reviewed: Historical Data, Nursing Documentation, Vital Signs Vital Signs: Last Vital Signs Temp 98.2 F 09/27/17 20:33 Pulse 96 H 09/27/17 20:33 Resp 16 09/27/17 20:33 BP 93/59 L 09/27/17 20:33 Pulse Ox 95 09/27/17 23:47 - Medical History PMH: Anxiety, Asthma, Back Problems, Bipolar Disorder (as per previous triage), Depression (as per previous triage), Gastritis, HTN, Schizophrenia, Chronic Pain (Back Pain) Other PMH: Alcohol abuse Surgical History: Hernia Repair, Tonsillectomy - [facility] Procedures DETOXIFICATION SERVICES FOR SUBSTANCE ABUSE TREATMENT (12/26/15) Family History: States: Unknown Family Hx - Social History Hx Tobacco Use: No Hx Alcohol Use: Yes Hx Substance Use: No - Immunization History Hx Tetanus Toxoid Vaccination: No Hx Influenza Vaccination: No Hx Pneumococcal Vaccination: No Review Of Systems Review Of Systems: ROS cannot be obtained secondary to pt's inabilty to answer questions. Physical Exam - Physical Exam Appears: Non-toxic, No Acute Distress, Unkempt, Other (AOB, intoxicated.) Skin: Normal Color, Warm, Dry Head: Atraumatic Eye(s): bilateral: PERRL Neck: Normal ROM, No Midline Cervical Tenderness, No Step Off Deformity, Supple Chest: Symmetrical, No Deformity Cardiovascular: Rhythm Regular Respiratory: Normal Breath Sounds, No Accessory Muscle Use Gastrointestinal/Abdominal: Soft Extremity: Normal ROM, No Deformity Neurological/Psych: Eyes Open With Command, Other (Moving all extremities) Gait: Unable To Assess ED Course And Treatment O2 Sat by Pulse Oximetry: 95 Pulse Ox Interpretation: Normal Progress Note: Pt is now clinically sober. AAOx3. Steady gait. Reevaluation Time: 05:18 Reassessment Condition: Improved Disposition Counseled Patient/Family Regarding: Diagnosis, Need For Followup - Disposition Referrals: [facility] [Outside] Disposition: HOME/ ROUTINE Disposition Time: 05:18 Condition: IMPROVED Additional Instructions: Avoid alcohol. Follow up in the clinic. Return to the ER if you develop worsening of symptoms or if you have any other concerns. Instructions: Alcohol Abuse and Alcoholism (DC) - Clinical Impression Clinical Impression: Alcohol abuse
[2017-09-28 05:21] VITALS: BP 110/71; PULSE 88; RESP 18; TEMP 98; O2SAT 97
== END 2017-09-28 05:21 | disposition home or self-care (01) ==
LOC: C.ER 20:31
DX: F10.129 Alcohol abuse with intoxication, unspecified (principal); Y90.9 Presence of alcohol in blood, level not specified

== ENCOUNTER 2017-10-01 16:19 | Emergency (ER) | payer MEDICARE ==
[2017-10-01 16:31] VITALS: BMI 28.1
--- NOTE | 2017-10-01 16:49 | C.PDOC ---
History Of Present Illness 71 y/o male brought to ED for public intoxication. Denies any physical complaints, trauma, or injury. ETOH on breath. Time Seen by Provider: 10/01/17 16:44 Chief Complaint (Nursing): Substance Abuse History Per: Patient History/Exam Limitations: no limitations Onset/Duration Of Symptoms: Hrs Current Symptoms Are (Timing): Still Present Suicide/Self Injury Attempted (Context): None Modifying Factor(s): Alcohol Associated Symptoms: denies: Suicidal Thoughts, Suicidal Plan Involuntary Hold By: None Recent travel outside of the [place]: No Past Medical History Reviewed: Historical Data, Nursing Documentation, Vital Signs Vital Signs: Last Vital Signs Temp 98.6 F 10/01/17 21:11 Pulse 85 10/01/17 21:11 Resp 18 10/01/17 21:11 BP 127/78 10/01/17 21:11 Pulse Ox 97 10/01/17 21:11 - Medical History PMH: Anxiety, Asthma, Back Problems, Bipolar Disorder, Depression, Gastritis, HTN, Schizophrenia, Chronic Pain (Back Pain) Surgical History: Hernia Repair, Tonsillectomy - [facility] Procedures DETOXIFICATION SERVICES FOR SUBSTANCE ABUSE TREATMENT (12/26/15) Family History: States: Unknown Family Hx - Social History Hx Tobacco Use: No Hx Alcohol Use: Yes Hx Substance Use: No - Immunization History Hx Tetanus Toxoid Vaccination: No Hx Influenza Vaccination: No Hx Pneumococcal Vaccination: No Review Of Systems Constitutional: Negative for: Fever, Chills Gastrointestinal: Negative for: Nausea, Vomiting, Abdominal Pain, Diarrhea Skin: Negative for: Rash Neurological: Negative for: Weakness, Numbness Psych: Negative for: Suicidal ideation Physical Exam - Physical Exam Appears: Well, Non-toxic, No Acute Distress Skin: Normal Color, Warm, Dry Head: Atraumatic, Normacephalic Eye(s): bilateral: Normal Inspection, PERRL, EOMI Oral Mucosa: Moist Neck: Supple Chest: Symmetrical, No Tenderness Cardiovascular: Rhythm Regular, No Murmur Respiratory: Normal Breath Sounds, No Decreased Breath Sounds, No Rales, No Rhonchi, No Wheezing Gastrointestinal/Abdominal: Soft, No Tenderness Extremity: Normal ROM, No Deformity Extremity: Bilateral: Atraumatic, Normal Color And Temperature, Normal ROM Neurological/Psych: Oriented x3 (Awake and alert), Normal Speech, Other (No focal deficits ) Gait: Steady ED Course And Treatment O2 Sat by Pulse Oximetry: 98 (RA) Pulse Ox Interpretation: Normal Reevaluation Time: 21:27 Reassessment Condition: Improved (Awake and alert requesting food.) Medical Decision Making Medical Decision Making: Ordered blood work. Disposition - Disposition Referrals: Alcoholics Anonymous [Outside] [facility] [Outside] Disposition: HOME/ ROUTINE Disposition Time: 21:27 Condition: IMPROVED Instructions: Alcohol Abuse and Alcoholism (DC) Forms: [employer] (Serbian) - Clinical Impression Clinical Impression: Alcohol abuse with intoxication - Scribe Statement The provider has reviewed the documentation as recorded by the Scribe Lizet White All medical record entries made by the Scribe were at my direction and personally dictated by me. I have reviewed the chart and agree that the record accurately reflects my personal performance of the history, physical exam, medical decision making, and the department course for this patient. I have also personally directed, reviewed, and agree with the discharge instructions and disposition.
[2017-10-01 21:11] VITALS: BP 127/78; PULSE 85; RESP 18; TEMP 98.6
[2017-10-01 21:28] VITALS: O2SAT 98
== END 2017-10-01 21:45 | disposition home or self-care (01) ==
LOC: C.ER 16:19
DX: F10.129 Alcohol abuse with intoxication, unspecified (principal); Y90.9 Presence of alcohol in blood, level not specified

== ENCOUNTER 2017-10-02 17:36 | Emergency (ER) | payer MEDICARE ==
[2017-10-02 17:47] VITALS: BMI 27.3
--- NOTE | 2017-10-02 18:52 | C.PDOC ---
History Of Present Illness 71-year-old male, presents to the emergency department with complaints of public intoxication. Patient has been seen in ED for same complaint multiple times in the past. Denies any SI/HI. No other complaints at this time. Time Seen by Provider: 10/02/17 17:47 Chief Complaint (Nursing): Substance Abuse History Per: EMS History/Exam Limitations: intoxication Current Symptoms Are (Timing): Still Present Past Medical History Reviewed: Historical Data, Nursing Documentation, Vital Signs Vital Signs: Last Vital Signs Temp 98.3 F 10/02/17 19:09 Pulse 95 H 10/02/17 19:09 Resp 18 10/02/17 19:09 BP 120/73 10/02/17 19:09 Pulse Ox 95 10/02/17 20:57 - Medical History PMH: Anxiety, Asthma, Back Problems, Bipolar Disorder, Depression, Gastritis, HTN, Schizophrenia, Chronic Pain (Back Pain) Surgical History: Hernia Repair, Tonsillectomy - [facility] Procedures DETOXIFICATION SERVICES FOR SUBSTANCE ABUSE TREATMENT (12/26/15) Family History: States: No Known Family Hx - Social History Hx Tobacco Use: No Hx Alcohol Use: Yes Hx Substance Use: No - Immunization History Hx Tetanus Toxoid Vaccination: No Hx Influenza Vaccination: No Hx Pneumococcal Vaccination: No Review Of Systems Constitutional: Negative for: Fever, Chills Cardiovascular: Negative for: Chest Pain, Palpitations Respiratory: Negative for: Shortness of Breath Gastrointestinal: Negative for: Nausea, Vomiting Skin: Negative for: Rash Psych: Negative for: Suicidal ideation, Withdrawal Physical Exam - Physical Exam Appears: Non-toxic, No Acute Distress, Unkempt Skin: Normal Color, Warm, Dry, No Rash Head: Atraumatic, Normacephalic Eye(s): bilateral: Normal Inspection Nose: Normal Lips: Normal Appearing Neck: Normal ROM Cardiovascular: Rhythm Regular, No Murmur Respiratory: Normal Breath Sounds, No Accessory Muscle Use Gastrointestinal/Abdominal: Soft, No Tenderness Extremity: Normal ROM, No Deformity, No Swelling Neurological/Psych: Oriented x3 ED Course And Treatment O2 Sat by Pulse Oximetry: 95 (RA) Pulse Ox Interpretation: Normal Medical Decision Making Medical Decision Making: Initial Impression: Alcohol intoxication Time: 17:58 Initial Plan: --POC blood glucose --Pending sobriety Finger stick is 102. On reevaluation, patient is AAOx3 and ambulating in the ED with a steady gait. Stable for discharge home. Disposition Counseled Patient/Family Regarding: Studies Performed, Diagnosis, Need For Followup - Disposition Referrals: [facility] at [facility] [Outside] Disposition: HOME/ ROUTINE Disposition Time: 20:56 Condition: STABLE Additional Instructions: follow up with medical clinic in 2 days call to make an appointment decrease alcohol use return to ER if symptoms worsens or progress Instructions: Alcohol Use - When Is Drinking a Problem?, Alcohol Abuse and Alcoholism (DC) Forms: Gen Discharge Inst Togolese, NONO (Togolese) - Clinical Impression Clinical Impression: Intoxication - Scribe Statement The provider has reviewed the documentation as recorded by the Scribe (Liseth Bañuelos) All medical record entries made by the Scribe were at my direction and personally dictated by me. I have reviewed the chart and agree that the record accurately reflects my personal performance of the history, physical exam, medical decision making, and the department course for this patient. I have also personally directed, reviewed, and agree with the discharge instructions and disposition.
[2017-10-02 19:09] VITALS: BP 120/73; PULSE 95; RESP 18; TEMP 98.3
[2017-10-02 20:57] VITALS: O2SAT 95
== END 2017-10-02 22:00 | disposition home or self-care (01) ==
LOC: C.ER 17:36
DX: F10.129 Alcohol abuse with intoxication, unspecified (principal); Y90.9 Presence of alcohol in blood, level not specified

== ENCOUNTER 2017-10-03 12:43 | Emergency (ER) | payer MEDICARE ==
[2017-10-03 12:43] VITALS: BMI 27.3
[2017-10-03 12:56] VITALS: BP 134/73; PULSE 84; RESP 18; TEMP 98.8; O2SAT 97
--- NOTE | 2017-10-03 14:32 | C.PDOC ---
History Of Present Illness 71 y/o male with history of ETOH brought to ED after being found lying on street. Patient appears to be in an acute ETOH intoxication and is using foul language to ED staff. Patient denies any physical complaints at this time. Time Seen by Provider: 10/03/17 12:48 Chief Complaint (Nursing): Substance Abuse History Per: Patient History/Exam Limitations: no limitations Onset/Duration Of Symptoms: Days Current Symptoms Are (Timing): Still Present Suicide/Self Injury Attempted (Context): None Modifying Factor(s): Alcohol Past Medical History Reviewed: Historical Data, Nursing Documentation, Vital Signs Vital Signs: Last Vital Signs Temp 98.8 F 10/03/17 12:55 Pulse 84 10/03/17 12:55 Resp 18 10/03/17 12:55 BP 134/73 10/03/17 12:55 Pulse Ox 97 10/03/17 14:38 - Medical History PMH: Anxiety, Asthma, Back Problems, Bipolar Disorder, Depression, Gastritis, HTN, Schizophrenia, Chronic Pain (Back Pain) Surgical History: Hernia Repair, Tonsillectomy - [facility] Procedures DETOXIFICATION SERVICES FOR SUBSTANCE ABUSE TREATMENT (12/26/15) Family History: States: No Known Family Hx - Social History Hx Tobacco Use: No Hx Alcohol Use: Yes Hx Substance Use: No - Immunization History Hx Tetanus Toxoid Vaccination: No Hx Influenza Vaccination: No Hx Pneumococcal Vaccination: No Review Of Systems Constitutional: Negative for: Fever, Chills Cardiovascular: Negative for: Chest Pain Respiratory: Negative for: Shortness of Breath Gastrointestinal: Negative for: Nausea, Vomiting Psych: Positive for: Other (ETOH intoxication). Negative for: Suicidal ideation , Withdrawal Physical Exam - Physical Exam Appears: Non-toxic, No Acute Distress, Other (ETOH on breath ) Skin: Warm, Dry, No Rash Head: Atraumatic, Normacephalic Eye(s): bilateral: Normal Inspection Oral Mucosa: Moist Neck: Normal ROM, Supple Cardiovascular: Rhythm Regular Respiratory: Normal Breath Sounds, No Rales, No Rhonchi, No Wheezing Gastrointestinal/Abdominal: Soft, No Tenderness, No Guarding, No Rebound Neurological/Psych: Oriented x3, Normal Speech, Normal Cognition ED Course And Treatment O2 Sat by Pulse Oximetry: 97 (RA) Pulse Ox Interpretation: Normal Disposition - Disposition Referrals: [facility] at [facility] [Outside] Disposition: HOME/ ROUTINE Disposition Time: 15:26 Condition: GOOD Additional Instructions: Return if worsened Instructions: Alcohol Use - When Is Drinking a Problem? Forms: [facility] (Venezuelan) - Clinical Impression Clinical Impression: Alcohol abuse with intoxication - PA / BIOLOGY INSTRUCTOR / Resident Statement MD/DO has reviewed & agrees with the documentation as recorded. - Scribe Statement The provider has reviewed the documentation as recorded by the Augustaibjackelyn Jo All medical record entries made by the Omar were at my direction and personally dictated by me. I have reviewed the chart and agree that the record accurately reflects my personal performance of the history, physical exam, medical decision making, and the department course for this patient. I have also personally directed, reviewed, and agree with the discharge instructions and disposition.
== END 2017-10-03 16:06 | disposition home or self-care (01) ==
LOC: C.ER 12:43
DX: F10.129 Alcohol abuse with intoxication, unspecified (principal); F20.9 Schizophrenia, unspecified; I10 Essential (primary) hypertension

== ENCOUNTER 2017-10-04 20:29 | Emergency (ER) | payer MEDICARE ==
[2017-10-04 20:29] VITALS: BMI 27.3
--- NOTE | 2017-10-04 20:40 | C.PDOC ---
History Of Present Illness 71 year old male is brought to the ED by EMS after he was found intoxicated on the street. Patient has multiple prior visits to the ED with similar presentation. Patient admits to drinking alcohol today. Patient denies SI/HI, hallucinations, CP, SOB, abdominal pain. Chief Complaint (Nursing): Substance Abuse History Per: Patient, EMS History/Exam Limitations: intoxication Onset/Duration Of Symptoms: Hrs Current Symptoms Are (Timing): Still Present Suicide/Self Injury Attempted (Context): None Modifying Factor(s): Alcohol Associated Symptoms: denies: Depression, Suicidal Thoughts, Suicidal Plan Involuntary Hold By: None Recent travel outside of the [place]: No Additional History Per: Patient, EMS Past Medical History Reviewed: Historical Data, Nursing Documentation, Vital Signs Vital Signs: Last Vital Signs Temp 98.5 F 10/05/17 04:49 Pulse 83 10/05/17 04:49 Resp 16 10/05/17 04:49 BP 138/82 10/05/17 04:49 Pulse Ox 95 10/05/17 04:49 - Medical History PMH: Anxiety, Asthma, Back Problems, Bipolar Disorder, Depression, Gastritis, HTN, Schizophrenia, Chronic Pain (Back Pain) Surgical History: Hernia Repair, Tonsillectomy - [facility] Procedures DETOXIFICATION SERVICES FOR SUBSTANCE ABUSE TREATMENT (12/26/15) Family History: States: Unknown Family Hx - Social History Hx Tobacco Use: No Hx Alcohol Use: Yes Hx Substance Use: No - Immunization History Hx Tetanus Toxoid Vaccination: No Hx Influenza Vaccination: No Hx Pneumococcal Vaccination: No Review Of Systems Constitutional: Negative for: Fever, Chills Cardiovascular: Negative for: Chest Pain, Palpitations Respiratory: Negative for: Shortness of Breath Gastrointestinal: Negative for: Nausea, Vomiting Neurological: Negative for: Weakness, Numbness Psych: Negative for: Depression, Suicidal ideation Physical Exam - Physical Exam Appears: Non-toxic, No Acute Distress Skin: Warm, Dry Head: Normacephalic Eye(s): bilateral: Normal Inspection Oral Mucosa: Moist Neck: Supple Chest: Symmetrical Cardiovascular: Rhythm Regular Respiratory: No Rales, No Rhonchi, No Wheezing Gastrointestinal/Abdominal: Soft, No Tenderness, No Guarding, No Rebound Extremity: No Tenderness, No Swelling Extremity: Bilateral: Atraumatic, Normal Color And Temperature, Normal ROM Neurological/Psych: Oriented x3, Normal Speech Gait: Steady ED Course And Treatment O2 Sat by Pulse Oximetry: 95 Pulse Ox Interpretation: Normal Reevaluation Time: 05:49 Reassessment Condition: Improved Disposition Counseled Patient/Family Regarding: Studies Performed, Diagnosis, Need For Followup - Disposition Referrals: [facility] at [facility] [Outside] Disposition: HOME/ ROUTINE Disposition Time: 20:52 Condition: FAIR Instructions: Alcohol Abuse and Alcoholism (DC) Forms: [facility] (Danish) - Clinical Impression Clinical Impression: Alcohol abuse, Alcohol intoxication - Scribe Statement The provider has reviewed the documentation as recorded by the Scribe Eulogio Sanchez All medical record entries made by the Scribe were at my direction and personally dictated by me. I have reviewed the chart and agree that the record accurately reflects my personal performance of the history, physical exam, medical decision making, and the department course for this patient. I have also personally directed, reviewed, and agree with the discharge instructions and disposition.
[2017-10-04 20:48] VITALS: O2SAT 95
[2017-10-04 21:10] VITALS: RESP 16
[2017-10-05 04:50] VITALS: BP 138/82; PULSE 83; TEMP 98.5
== END 2017-10-05 05:20 | disposition home or self-care (01) ==
LOC: C.ER 20:29
DX: F10.129 Alcohol abuse with intoxication, unspecified (principal); Y90.9 Presence of alcohol in blood, level not specified

== ENCOUNTER 2017-10-05 16:58 | Emergency (ER) | payer MEDICARE ==
[2017-10-05 16:59] VITALS: BMI 27.3
[2017-10-05 19:30] VITALS: RESP 16
--- NOTE | 2017-10-05 20:22 | C.PDOC ---
History Of Present Illness Pt was BIBEMS due to public alcohol intoxication. Time Seen by Provider: 10/05/17 17:05 Chief Complaint (Nursing): Substance Abuse History Per: Patient, EMS History/Exam Limitations: intoxication Onset/Duration Of Symptoms: Unknown Current Symptoms Are (Timing): Still Present Suicide/Self Injury Attempted (Context): None Modifying Factor(s): Alcohol Severity: Moderate Associated Symptoms: denies: Suicidal Thoughts, Suicidal Plan Additional History Per: Prior Records Past Medical History Reviewed: Historical Data, Nursing Documentation, Vital Signs Vital Signs: Last Vital Signs Temp 98.4 F 10/05/17 19:29 Pulse 95 H 10/05/17 19:29 Resp 16 10/05/17 19:29 BP 147/80 10/05/17 19:29 Pulse Ox 96 10/05/17 20:25 - Medical History PMH: Anxiety, Asthma, Back Problems, Bipolar Disorder, Depression, Gastritis, HTN, Schizophrenia, Chronic Pain (Back Pain) Surgical History: Hernia Repair, Tonsillectomy - [facility] Procedures DETOXIFICATION SERVICES FOR SUBSTANCE ABUSE TREATMENT (12/26/15) Family History: States: Unknown Family Hx - Social History Hx Tobacco Use: No Hx Alcohol Use: Yes Hx Substance Use: No - Immunization History Hx Tetanus Toxoid Vaccination: No Hx Influenza Vaccination: No Hx Pneumococcal Vaccination: No Review Of Systems Review Of Systems: ROS cannot be obtained secondary to pt's inabilty to answer questions. Physical Exam - Physical Exam Appears: Non-toxic, No Acute Distress, Unkempt, Other (AOB, intoxicated) Skin: Warm, Dry Head: Atraumatic Eye(s): bilateral: PERRL Neck: Normal ROM, No Midline Cervical Tenderness, No Step Off Deformity, Supple Cardiovascular: Rhythm Regular Respiratory: Normal Breath Sounds, No Accessory Muscle Use Gastrointestinal/Abdominal: Soft Extremity: Normal ROM, No Deformity Neurological/Psych: Eyes Open With Command, Other (Moving all extremities) Gait: Unable To Assess ED Course And Treatment O2 Sat by Pulse Oximetry: 96 Pulse Ox Interpretation: Normal Disposition - Disposition Disposition Time: 00:50 Condition: STABLE - Clinical Impression Clinical Impression: Alcohol abuse, Homelessness Physician Patient Turnover Patient Signed Over To: Jb Riddle Handoff Comments: to reassess pt once sober.
[2017-10-06 05:28] VITALS: BP 144/94; PULSE 92; TEMP 98.5; O2SAT 95
== END 2017-10-06 05:28 | disposition home or self-care (01) ==
LOC: C.ER 16:58
DX: F10.129 Alcohol abuse with intoxication, unspecified (principal); Z59.0 Homelessness; I10 Essential (primary) hypertension; F20.9 Schizophrenia, unspecified

== ENCOUNTER 2017-10-06 14:18 | Emergency (ER) | payer MEDICARE ==
[2017-10-06 14:19] VITALS: BMI 27.3
[2017-10-06 14:35] VITALS: PULSE 78; TEMP 98
[2017-10-06 15:15] VITALS: O2SAT 98
[2017-10-06 15:31] VITALS: BP 136/72; RESP 28
--- NOTE | 2017-10-06 16:56 | C.PDOC ---
History Of Present Illness Patient is a 71 y/o male who presents to the ED BIBA for acute EtOH intoxication. Patient has Hx of similar ED presentations. Patient is awake, alert, and oriented in ED. Denies any physical complaints at this time. Chief Complaint (Nursing): Substance Abuse History Per: Patient, EMS History/Exam Limitations: no limitations Onset/Duration Of Symptoms: Hrs Current Symptoms Are (Timing): Still Present Suicide/Self Injury Attempted (Context): None Modifying Factor(s): Alcohol Recent travel outside of the [place]: No Past Medical History Reviewed: Historical Data, Nursing Documentation, Vital Signs Vital Signs: Last Vital Signs Temp 98 F 10/06/17 15:28 Pulse 78 10/06/17 15:28 Resp 28 H 10/06/17 15:28 BP 136/72 10/06/17 15:28 Pulse Ox 98 10/06/17 17:00 - Medical History PMH: Anxiety, Asthma, Back Problems, Bipolar Disorder, Depression, Gastritis, HTN, Schizophrenia, Chronic Pain (Back Pain) Surgical History: Hernia Repair, Tonsillectomy - [facility] Procedures DETOXIFICATION SERVICES FOR SUBSTANCE ABUSE TREATMENT (12/26/15) Family History: States: No Known Family Hx - Social History Hx Tobacco Use: No Hx Alcohol Use: Yes Hx Substance Use: No - Immunization History Hx Tetanus Toxoid Vaccination: No Hx Influenza Vaccination: No Hx Pneumococcal Vaccination: No Review Of Systems Constitutional: Negative for: Fever, Chills Cardiovascular: Negative for: Chest Pain Respiratory: Negative for: Shortness of Breath Neurological: Positive for: Other (EtOH intoxication) Physical Exam - Physical Exam Appears: Well, Non-toxic, No Acute Distress, Other (alcohol on breath) Skin: Normal Color, Warm, Dry Head: Atraumatic, Normacephalic Eye(s): bilateral: PERRL, EOMI Oral Mucosa: Moist Cardiovascular: Rhythm Regular, No Murmur Respiratory: Normal Breath Sounds, No Accessory Muscle Use, No Rales, No Rhonchi , No Wheezing Gastrointestinal/Abdominal: Soft, No Tenderness, No Guarding, No Rebound Extremity: Normal ROM (x4), No Swelling Neurological/Psych: Oriented x3, Normal Speech, Normal Cognition Gait: Steady ED Course And Treatment O2 Sat by Pulse Oximetry: 98 Progress Note: Patient is resting comfortably and stable for discharge. Disposition - Disposition Referrals: [facility] [Outside] [facility] [Outside] [facility] [Outside] Disposition: HOME/ ROUTINE Disposition Time: 15:20 Condition: GOOD Additional Instructions: ZE PEARL, thank you for letting us take care of you today. Your provider was Marshall Buenrostro DO and you were treated for SUBSTANCE ABUSE. The emergency medical care you received today was directed at your acute symptoms. If you were prescribed any medication, please fill it and take as directed. It may take several days for your symptoms to resolve. Return to the Emergency Department if your symptoms worsen, do not improve, or if you have any other problems. Please contact your doctor or call one of the physicians/clinics you have been referred to that are listed on the Patient Visit Information form that is included in your discharge packet. Bring any paperwork you were given at discharge with you along with any medications you are taking to your follow up visit. Our treatment cannot replace ongoing medical care by a primary care provider outside of the emergency department. Thank you for allowing the [facility] team to be part of your care today. Do not drink too much alcohol. Follow up with AA and the clinic for care. Instructions: Alcohol Abuse and Alcoholism (DC) Forms: [employer] (Swedish) - Clinical Impression Clinical Impression: Alcohol ingestion - Scribe Statement The provider has reviewed the documentation as recorded by the Scribe Ly Oconnor All medical record entries made by the Scribe were at my direction and personally dictated by me. I have reviewed the chart and agree that the record accurately reflects my personal performance of the history, physical exam, medical decision making, and the department course for this patient. I have also personally directed, reviewed, and agree with the discharge instructions and disposition.
== END 2017-10-06 15:31 | disposition home or self-care (01) ==
LOC: C.ER 14:18
DX: T51.91XA Toxic effect of unspecified alcohol, accidental (unintentional), initial encounter (principal)

== ENCOUNTER 2017-10-08 11:39 | Emergency (ER) | payer MEDICARE ==
[2017-10-08 11:39] VITALS: BMI 27.3
[2017-10-08 11:46] VITALS: BP 109/70; PULSE 109; RESP 20; TEMP 98; O2SAT 99
--- NOTE | 2017-10-08 12:58 | C.PDOC ---
History Of Present Illness 71 y/o male brought to ED by EMS after being found on street in an acute ETOH intoxication with unsteady gait. Patient has multiple prior ED visits for same and currently denies SI/HI, hallucinations or any other complaints at this time. Time Seen by Provider: 10/08/17 12:42 Chief Complaint (Nursing): Substance Abuse History Per: Patient History/Exam Limitations: no limitations Onset/Duration Of Symptoms: Hrs Current Symptoms Are (Timing): Still Present Suicide/Self Injury Attempted (Context): None Modifying Factor(s): Alcohol Past Medical History Reviewed: Historical Data, Nursing Documentation, Vital Signs Vital Signs: Last Vital Signs Temp 98 F 10/08/17 11:45 Pulse 109 H 10/08/17 11:45 Resp 20 10/08/17 11:45 BP 109/70 10/08/17 11:45 Pulse Ox 99 10/08/17 12:59 - Medical History PMH: Anxiety, Asthma, Back Problems, Bipolar Disorder, Depression, Gastritis, HTN, Schizophrenia, Chronic Pain (Back Pain) Surgical History: Hernia Repair, Tonsillectomy - [facility] Procedures DETOXIFICATION SERVICES FOR SUBSTANCE ABUSE TREATMENT (12/26/15) Family History: States: No Known Family Hx - Social History Hx Tobacco Use: No Hx Alcohol Use: Yes Hx Substance Use: No - Immunization History Hx Tetanus Toxoid Vaccination: No Hx Influenza Vaccination: No Hx Pneumococcal Vaccination: No Review Of Systems Constitutional: Negative for: Fever, Chills Gastrointestinal: Negative for: Nausea, Vomiting Skin: Negative for: Rash Psych: Positive for: Other (ETOH intoxication). Negative for: Suicidal ideation Physical Exam - Physical Exam Appears: Non-toxic, No Acute Distress, Other (ETOH on breath) Skin: Warm, Dry, No Rash Head: Atraumatic, Normacephalic Eye(s): bilateral: Normal Inspection Oral Mucosa: Moist Neck: Normal ROM, Supple Chest: Symmetrical, No Tenderness Cardiovascular: Rhythm Regular, No Friction Rub, No Murmur Respiratory: Normal Breath Sounds, No Rales, No Rhonchi, No Wheezing Gastrointestinal/Abdominal: Soft, No Tenderness, No Guarding, No Rebound Back: Normal Inspection, No CVA Tenderness Extremity: Normal ROM, No Swelling Neurological/Psych: Oriented x3, Normal Speech, Normal Cognition Gait: Steady ED Course And Treatment O2 Sat by Pulse Oximetry: 99 (RA) Pulse Ox Interpretation: Normal Medical Decision Making Medical Decision Making: Ambulatory in the ED with steady gait. Normal speech Disposition - Disposition Disposition: HOME/ ROUTINE Disposition Time: 13:43 Condition: STABLE Instructions: Alcohol Use - When Is Drinking a Problem? Forms: [facility] (Swedish) - Clinical Impression Clinical Impression: Alcohol abuse - PA / WOOD CARVER / Resident Statement MD/DO has reviewed & agrees with the documentation as recorded. - Scribe Statement The provider has reviewed the documentation as recorded by the Omar Jo All medical record entries made by the Omar were at my direction and personally dictated by me. I have reviewed the chart and agree that the record accurately reflects my personal performance of the history, physical exam, medical decision making, and the department course for this patient. I have also personally directed, reviewed, and agree with the discharge instructions and disposition.
== END 2017-10-08 16:59 | disposition home or self-care (01) ==
LOC: C.ER 11:39
DX: F10.129 Alcohol abuse with intoxication, unspecified (principal); Y90.9 Presence of alcohol in blood, level not specified

== ENCOUNTER 2017-10-08 20:07 | Emergency (ER) | payer MEDICARE ==
[2017-10-08 20:07] VITALS: BMI 27.3
[2017-10-08 20:52] VITALS: RESP 20
--- NOTE | 2017-10-08 21:09 | C.PDOC ---
History Of Present Illness Patient brought in via EMS after being found intoxicated in public. Denies physical complaints at this time. Time Seen by Provider: 10/08/17 21:08 Chief Complaint (Nursing): Substance Abuse History Per: Patient History/Exam Limitations: no limitations Onset/Duration Of Symptoms: Hrs Current Symptoms Are (Timing): Still Present Suicide/Self Injury Attempted (Context): None Modifying Factor(s): Alcohol Severity: None Pain Scale Rating Of: 0 Associated Symptoms: denies: Depression, Suicidal Thoughts Involuntary Hold By: None Recent travel outside of the [place]: No Past Medical History Reviewed: Historical Data, Nursing Documentation, Vital Signs Vital Signs: Last Vital Signs Temp 98.4 F 10/08/17 20:49 Pulse 68 10/08/17 20:49 Resp 20 10/08/17 20:49 BP 129/87 10/08/17 20:49 Pulse Ox 100 10/08/17 21:14 - Medical History PMH: Anxiety, Asthma, Back Problems, Bipolar Disorder, Depression, Gastritis, HTN, Schizophrenia, Chronic Pain (Back Pain) Surgical History: Hernia Repair, Tonsillectomy - [facility] Procedures DETOXIFICATION SERVICES FOR SUBSTANCE ABUSE TREATMENT (12/26/15) Family History: States: No Known Family Hx - Social History Hx Tobacco Use: No Hx Alcohol Use: Yes Hx Substance Use: No - Immunization History Hx Tetanus Toxoid Vaccination: No Hx Influenza Vaccination: No Hx Pneumococcal Vaccination: No Review Of Systems Constitutional: Negative for: Fever, Chills Cardiovascular: Negative for: Chest Pain, Palpitations Respiratory: Negative for: Shortness of Breath Gastrointestinal: Negative for: Nausea, Vomiting Physical Exam - Physical Exam Appears: Non-toxic, No Acute Distress, Other (ETOH on breath, no sign of injury) Skin: Warm, Dry Head: Normacephalic Oral Mucosa: Moist Chest: Symmetrical, No Tenderness Cardiovascular: Rhythm Regular Respiratory: No Rales, No Rhonchi, No Wheezing Gastrointestinal/Abdominal: Soft, No Tenderness Neurological/Psych: Oriented x3 ED Course And Treatment O2 Sat by Pulse Oximetry: 100 (Room air) Pulse Ox Interpretation: Normal Progress Note: pt is clinically sober Reevaluation Time: 04:51 Reassessment Condition: Improved Disposition Counseled Patient/Family Regarding: Studies Performed, Diagnosis, Need For Followup, Rx Given - Disposition Referrals: [facility] [Outside] Disposition: HOME/ ROUTINE Disposition Time: 21:08 Condition: FAIR Instructions: Alcohol Abuse and Alcoholism (DC) Forms: [facility] (Costa Rican) - Clinical Impression Clinical Impression: Alcohol abuse, Alcohol intoxication - Scribe Statement The provider has reviewed the documentation as recorded by the Scribjackelyn Huang All medical record entries made by the Scribe were at my direction and personally dictated by me. I have reviewed the chart and agree that the record accurately reflects my personal performance of the history, physical exam, medical decision making, and the department course for this patient. I have also personally directed, reviewed, and agree with the discharge instructions and disposition.
[2017-10-09 05:16] VITALS: BP 132/82; PULSE 80; TEMP 98; O2SAT 97
== END 2017-10-09 05:15 | disposition home or self-care (01) ==
LOC: C.ER 20:07
DX: F10.129 Alcohol abuse with intoxication, unspecified (principal); Y90.9 Presence of alcohol in blood, level not specified

== ENCOUNTER 2017-10-09 15:06 | Emergency (ER) | payer MEDICARE ==
[2017-10-09 15:07] VITALS: BMI 27.3
--- NOTE | 2017-10-09 15:46 | C.PDOC ---
History Of Present Illness 71 year old male is brought to the ED by ambulance for evaluation of public alcohol intoxication. Patient is familiar to this ED and has had many prior visits for similar complaints. He admits to drinking earlier today and has no complaints at this time. Time Seen by Provider: 10/09/17 15:41 Chief Complaint (Nursing): Substance Abuse History Per: Patient, EMS History/Exam Limitations: intoxication Onset/Duration Of Symptoms: Hrs, Waxing/Waning Suicide/Self Injury Attempted (Context): None Modifying Factor(s): Alcohol Associated Symptoms: denies: Suicidal Thoughts, Suicidal Plan Involuntary Hold By: None Recent travel outside of the [place]: No Additional History Per: Patient, EMS Past Medical History Reviewed: Historical Data, Nursing Documentation, Vital Signs Vital Signs: Last Vital Signs Temp 98.6 F 10/09/17 16:31 Pulse 80 10/09/17 16:31 Resp 18 10/09/17 16:31 BP 120/82 10/09/17 16:31 Pulse Ox 95 10/09/17 22:17 - Medical History PMH: Anxiety, Asthma, Back Problems, Bipolar Disorder, Depression, Gastritis, HTN, Schizophrenia, Chronic Pain (Back Pain) Surgical History: Hernia Repair, Tonsillectomy - [facility] Procedures DETOXIFICATION SERVICES FOR SUBSTANCE ABUSE TREATMENT (12/26/15) Family History: States: Unknown Family Hx - Social History Hx Tobacco Use: No Hx Alcohol Use: Yes Hx Substance Use: No - Immunization History Hx Tetanus Toxoid Vaccination: No Hx Influenza Vaccination: No Hx Pneumococcal Vaccination: No Review Of Systems Psych: Positive for: Other (EtOH intoxication ). Negative for: Suicidal ideation Physical Exam - Physical Exam Appears: Non-toxic, No Acute Distress, Other (visibly intoxicated) Skin: Normal Color, Warm, Dry Head: Atraumatic, Normacephalic Eye(s): bilateral: Normal Inspection Oral Mucosa: Moist, Other (alcohol on breath ) Neck: Supple Chest: Symmetrical, No Deformity Cardiovascular: Rhythm Regular Respiratory: Normal Breath Sounds Extremity: Normal ROM Neurological/Psych: Other (arousable to touch and verbal stimuli ) ED Course And Treatment O2 Sat by Pulse Oximetry: 95 (on RA ) Pulse Ox Interpretation: Normal Medical Decision Making Medical Decision Making: typical alcohol abuse/malingering many recent eval for same, no new issues no new injuries. Disposition Doctor Will See Patient In The: Office Counseled Patient/Family Regarding: Studies Performed, Diagnosis - Disposition Referrals: [facility] [Outside] [facility] [Outside] [facility] [Outside] [facility] [Outside] Disposition: HOME/ ROUTINE Disposition Time: 16:18 Condition: GOOD Instructions: Alcohol Abuse and Alcoholism (DC) Forms: [employer] (Northern Irish) - Clinical Impression Clinical Impression: Malingering, Alcohol abuse - Scribe Statement The provider has reviewed the documentation as recorded by the Scribe (Chrissy Leiva) Provider Attestation: All medical record entries made by the Scribe were at my direction and personally dictated by me. I have reviewed the chart and agree that the record accurately reflects my personal performance of the history, physical exam, medical decision making, and the department course for this patient. I have also personally directed, reviewed, and agree with the discharge instructions and disposition.
[2017-10-09 16:33] VITALS: BP 120/82; PULSE 80; RESP 18; TEMP 98.6
[2017-10-09 22:17] VITALS: O2SAT 95
== END 2017-10-09 16:32 | disposition home or self-care (01) ==
LOC: C.ER 15:06
DX: F10.10 Alcohol abuse, uncomplicated (principal); Z76.5 Malingerer [conscious simulation]

== ENCOUNTER 2017-10-09 22:15 | Emergency (ER) | payer MEDICARE ==
[2017-10-09 22:15] VITALS: BMI 27.3
--- NOTE | 2017-10-09 22:17 | C.PDOC ---
History Of Present Illness Patient brought in via EMS after being found intoxicated in public. Denies physical complaints at this time. Time Seen by Provider: 10/09/17 22:16 History Per: Patient History/Exam Limitations: no limitations Onset/Duration Of Symptoms: Hrs Current Symptoms Are (Timing): Still Present Suicide/Self Injury Attempted (Context): None Modifying Factor(s): Alcohol Severity: None Pain Scale Rating Of: 0 Associated Symptoms: denies: Depression, Suicidal Thoughts Recent travel outside of the [facility]: No Past Medical History Reviewed: Historical Data, Nursing Documentation, Vital Signs Vital Signs: Last Vital Signs Temp 98.2 F 10/10/17 04:11 Pulse 89 10/10/17 04:11 Resp 20 10/10/17 04:11 BP 132/74 10/10/17 04:11 Pulse Ox 96 10/10/17 04:11 - Medical History PMH: Anxiety, Asthma, Back Problems, Bipolar Disorder, Depression, Gastritis, HTN, Schizophrenia, Chronic Pain (Back Pain) Surgical History: Hernia Repair, Tonsillectomy - [facility] Procedures DETOXIFICATION SERVICES FOR SUBSTANCE ABUSE TREATMENT (12/26/15) Family History: States: No Known Family Hx - Social History Hx Tobacco Use: No Hx Alcohol Use: Yes Hx Substance Use: No - Immunization History Hx Tetanus Toxoid Vaccination: No Hx Influenza Vaccination: No Hx Pneumococcal Vaccination: No Review Of Systems Constitutional: Negative for: Fever, Chills Cardiovascular: Negative for: Chest Pain, Palpitations Respiratory: Negative for: Cough, Shortness of Breath Gastrointestinal: Negative for: Nausea, Vomiting Physical Exam - Physical Exam Appears: Non-toxic, Other (ETOH on breath) Skin: Warm, Dry Head: Normacephalic, Laceration (Occipital area) Oral Mucosa: Moist Chest: Symmetrical, No Tenderness Cardiovascular: Rhythm Regular Respiratory: No Rales, No Rhonchi, No Wheezing Gastrointestinal/Abdominal: Soft, No Tenderness Neurological/Psych: Oriented x3 Laceration - Laceration Repair 4 Wound Length (In cm): 4 Description Of Wound: Linear Wound Cleansed With: Betadine Anesthesia: Lidocaine 2%, With Epi Wound Examination: Irrigated With Saline Wound Closure: Jai (3) Wound Complexity: Simple Disposition Counseled Patient/Family Regarding: Studies Performed, Diagnosis, Need For Followup - Disposition Referrals: at [facility] [Outside] Disposition: HOME/ ROUTINE Disposition Time: 22:16 Condition: FAIR Additional Instructions: Please return in 5-7 day for staple removal Instructions: Wound Care (DC), Laceration Repair With Jai (DC), Alcohol Abuse and Alcoholism (DC) - Clinical Impression Clinical Impression: Alcohol abuse with intoxication, Homelessness, Laceration, Laceration of scalp - Scribe Statement The provider has reviewed the documentation as recorded by the Scribjackelyn Huang All medical record entries made by the Augustaibjackelyn were at my direction and personally dictated by me. I have reviewed the chart and agree that the record accurately reflects my personal performance of the history, physical exam, medical decision making, and the department course for this patient. I have also personally directed, reviewed, and agree with the discharge instructions and disposition.
[2017-10-09 22:23] VITALS: O2SAT 96
[2017-10-09 23:28] VITALS: RESP 20
[2017-10-10 04:13] VITALS: BP 132/74; PULSE 89; TEMP 98.2
--- NOTE | 2017-10-10 08:51 | CT ---
PROCEDURE: CT HEAD WITHOUT CONTRAST. HISTORY: fall, laceration occipital area COMPARISON: 07/28/2017. TECHNIQUE: Axial computed tomography images were obtained through the head/brain without intravenous contrast. Radiation dose: Total exam DLP = 1006.21 mGy-cm. This CT exam was performed using one or more of the following dose reduction techniques: Automated exposure control, adjustment of the mA and/or kV according to patient size, and/or use of iterative reconstruction technique. FINDINGS: HEMORRHAGE: No intracranial hemorrhage. BRAIN: There is no mass, mass effect or abnormal extra-axial fluid collection. There is no territorial infarction. VENTRICLES: There is moderate age-related global parenchymal volume loss and proportionate enlargement of the ventricles and cortical sulci. CALVARIUM: There is no calvarial fracture. There is a small posterior parietal scalp hematoma. PARANASAL SINUSES: Unremarkable as visualized. No significant inflammatory changes. MASTOID AIR CELLS: Unremarkable as visualized. No inflammatory changes. OTHER FINDINGS: None. IMPRESSION: No acute intracranial abnormality. Small posterior parietal scalp hematoma. Moderate age-related global parenchymal volume loss. A preliminary report was provided by [facility] [employer].
== END 2017-10-10 05:11 | disposition home or self-care (01) ==
LOC: C.ER 22:15
DX: S01.01XA Laceration without foreign body of scalp, initial encounter (principal); X58.XXXA Exposure to other specified factors, initial encounter; Y92.89 Other specified places as the place of occurrence of the external cause; F10.129 Alcohol abuse with intoxication, unspecified; Z59.0 Homelessness

== ENCOUNTER 2017-10-10 10:27 | Emergency (ER) | payer MEDICARE ==
[2017-10-10 10:27] VITALS: BMI 27.3
[2017-10-10 10:36] VITALS: RESP 18; TEMP 98
--- NOTE | 2017-10-10 12:09 | C.PDOC ---
History Of Present Illness 71 year old male is brought to the ED via ambulance for evaluation of acute alcohol intoxication for an unknown duration. Patient is familiar to this ED and has had many prior visits with similar presentations. Patient admits to drinking earlier today and has no complaints at this time. Time Seen by Provider: 10/10/17 11:08 Chief Complaint (Nursing): Substance Abuse History Per: Patient, EMS History/Exam Limitations: intoxication Onset/Duration Of Symptoms: Hrs Current Symptoms Are (Timing): Still Present Suicide/Self Injury Attempted (Context): None Modifying Factor(s): Alcohol Involuntary Hold By: None Recent travel outside of the [place]: No Additional History Per: Patient, EMS Past Medical History Reviewed: Historical Data, Nursing Documentation, Vital Signs Vital Signs: Last Vital Signs Temp 98 F 10/10/17 13:54 Pulse 78 10/10/17 13:54 Resp 18 10/10/17 13:54 BP 126/73 10/10/17 13:54 Pulse Ox 98 10/10/17 13:54 - Medical History PMH: Anxiety, Asthma, Back Problems, Bipolar Disorder, Depression, Gastritis, HTN, Schizophrenia, Chronic Pain (Back Pain) Surgical History: Hernia Repair, Tonsillectomy - [facility] Procedures DETOXIFICATION SERVICES FOR SUBSTANCE ABUSE TREATMENT (12/26/15) Family History: States: Unknown Family Hx - Social History Hx Tobacco Use: No Hx Alcohol Use: Yes Hx Substance Use: No - Immunization History Hx Tetanus Toxoid Vaccination: No Hx Influenza Vaccination: No Hx Pneumococcal Vaccination: No Review Of Systems Psych: Positive for: Other (EtOH intoxication ) Physical Exam - Physical Exam Additional Physical Exam Comments: Gen: No acute distress. Visibly intoxicated Head: Normacephalic Eyes: No icterus ENT: moist mucosa membranes. alcohol on breath Neck: No midline tenderness Chest: No tenderness CV: Regular rate Lungs: No accessory muscle use Abd: Soft Back: No midline tenderness Skin: No laceration Neuro: Alert, arousable to touch and verbal stimuli ED Course And Treatment O2 Sat by Pulse Oximetry: 95 (on RA) Pulse Ox Interpretation: Normal Medical Decision Making Medical Decision Making: Patient was witnessed by nurse walking out of ED with steady gait. Disposition - Disposition Disposition: ELOPEMENT - ER ONLY Disposition Time: 16:22 Condition: STABLE Forms: [facility] (Andorran) - Clinical Impression Clinical Impression: Alcohol intoxication - Scribe Statement The provider has reviewed the documentation as recorded by the Scribe (Chrissy Leiva) Provider Attestation: All medical record entries made by the Scribe were at my direction and personally dictated by me. I have reviewed the chart and agree that the record accurately reflects my personal performance of the history, physical exam, medical decision making, and the department course for this patient. I have also personally directed, reviewed, and agree with the discharge instructions and disposition.
[2017-10-10 16:29] VITALS: BP 136/72; PULSE 86; O2SAT 98
== END 2017-10-10 16:29 | disposition left against medical advice (07) ==
LOC: C.ER 10:27
DX: F10.129 Alcohol abuse with intoxication, unspecified (principal); Y90.9 Presence of alcohol in blood, level not specified

== ENCOUNTER 2017-10-12 19:54 | Emergency (ER) | payer MEDICARE ==
[2017-10-12 19:54] VITALS: BMI 27.3
--- NOTE | 2017-10-12 20:37 | C.PDOC ---
History Of Present Illness 71 year old male is brought to the ED by EMS for public intoxication. Patient has multiple prior visits to the ED with similar presentation. Patient admits to drinking alcohol today. Patient denies SI/HI,hallucinations, CP, SOB. Time Seen by Provider: 10/12/17 20:19 Chief Complaint (Nursing): Substance Abuse History Per: Patient, EMS History/Exam Limitations: intoxication Onset/Duration Of Symptoms: Hrs Current Symptoms Are (Timing): Still Present Suicide/Self Injury Attempted (Context): None Modifying Factor(s): Alcohol Associated Symptoms: denies: Depression, Suicidal Thoughts, Suicidal Plan Involuntary Hold By: None Recent travel outside of the [place]: No Additional History Per: Patient, EMS Past Medical History Reviewed: Historical Data, Nursing Documentation, Vital Signs Vital Signs: Last Vital Signs Temp 97 F L 10/13/17 00:28 Pulse 79 10/13/17 00:28 Resp 20 10/13/17 00:28 BP 113/73 10/13/17 00:28 Pulse Ox 96 10/12/17 20:42 - Medical History PMH: Anxiety, Asthma, Back Problems, Bipolar Disorder, Depression, Gastritis, HTN, Schizophrenia, Chronic Pain (Back Pain) Surgical History: Hernia Repair, Tonsillectomy - [facility] Procedures DETOXIFICATION SERVICES FOR SUBSTANCE ABUSE TREATMENT (12/26/15) Family History: States: Unknown Family Hx - Social History Hx Tobacco Use: No Hx Alcohol Use: Yes Hx Substance Use: No - Immunization History Hx Tetanus Toxoid Vaccination: No Hx Influenza Vaccination: No Hx Pneumococcal Vaccination: No Review Of Systems Constitutional: Negative for: Fever, Chills Cardiovascular: Negative for: Chest Pain Respiratory: Negative for: Shortness of Breath Gastrointestinal: Negative for: Nausea, Vomiting Neurological: Negative for: Weakness, Numbness Psych: Negative for: Depression, Suicidal ideation Physical Exam - Physical Exam Appears: Non-toxic, No Acute Distress Skin: Warm, Dry Head: Normacephalic Eye(s): bilateral: Normal Inspection Oral Mucosa: Moist Neck: Supple Chest: Symmetrical Cardiovascular: Rhythm Regular Respiratory: No Rales, No Rhonchi, No Wheezing Gastrointestinal/Abdominal: Soft, No Tenderness, No Guarding, No Rebound Extremity: No Tenderness, No Swelling Extremity: Bilateral: Atraumatic, Normal Color And Temperature, Normal ROM Neurological/Psych: Oriented x3, Normal Speech Gait: Steady ED Course And Treatment O2 Sat by Pulse Oximetry: 96 (ON RA) Pulse Ox Interpretation: Normal Reevaluation Time: 04:57 Reassessment Condition: Improved Disposition Counseled Patient/Family Regarding: Studies Performed, Diagnosis, Need For Followup - Disposition Referrals: [facility] [Outside] Disposition: HOME/ ROUTINE Disposition Time: 20:36 Condition: FAIR Instructions: Alcohol Abuse and Alcoholism (DC) Forms: [employer] (Georgian) - Clinical Impression Clinical Impression: Alcohol abuse with intoxication - Scribe Statement The provider has reviewed the documentation as recorded by the Scribe Eulogio Sanchez All medical record entries made by the Scribe were at my direction and personally dictated by me. I have reviewed the chart and agree that the record accurately reflects my personal performance of the history, physical exam, medical decision making, and the department course for this patient. I have also personally directed, reviewed, and agree with the discharge instructions and disposition.
[2017-10-13 05:20] VITALS: BP 138/79; PULSE 86; RESP 16; TEMP 97.8; O2SAT 97
== END 2017-10-13 05:20 | disposition home or self-care (01) ==
LOC: C.ER 19:54
DX: F10.129 Alcohol abuse with intoxication, unspecified (principal)

== ENCOUNTER 2017-10-13 15:44 | Emergency (ER) | payer MEDICARE ==
[2017-10-13 15:44] VITALS: BMI 27.3
[2017-10-13 16:12] VITALS: RESP 18; O2SAT 95
--- NOTE | 2017-10-13 16:23 | C.PDOC ---
History Of Present Illness 71 y/o male presents to the ED for evaluation of acute EtOH intoxication. Patient has extensive history of similar symptoms/ED visits. He admits to drinking alcohol today, denies any physical complaints. Time Seen by Provider: 10/13/17 16:09 Chief Complaint (Nursing): Substance Abuse History Per: Patient, EMS History/Exam Limitations: clinical condition (mild intoxz\ication) Onset/Duration Of Symptoms: Hrs Current Symptoms Are (Timing): Still Present Suicide/Self Injury Attempted (Context): None Modifying Factor(s): Alcohol Severity: Mild Involuntary Hold By: Emergency Physician Past Medical History Reviewed: Historical Data, Nursing Documentation, Vital Signs Vital Signs: Last Vital Signs Temp 97.8 F 10/13/17 18:00 Pulse 88 10/13/17 18:00 Resp 18 10/13/17 18:00 BP 121/76 10/13/17 18:00 Pulse Ox 95 10/13/17 18:23 - Medical History PMH: Anxiety, Asthma, Back Problems, Bipolar Disorder, Depression, Gastritis, HTN, Schizophrenia, Chronic Pain (Back Pain) Surgical History: Hernia Repair, Tonsillectomy - [facility] Procedures DETOXIFICATION SERVICES FOR SUBSTANCE ABUSE TREATMENT (12/26/15) Family History: States: No Known Family Hx - Social History Hx Tobacco Use: No Hx Alcohol Use: Yes Hx Substance Use: No - Immunization History Hx Tetanus Toxoid Vaccination: No Hx Influenza Vaccination: No Hx Pneumococcal Vaccination: No Review Of Systems Constitutional: Negative for: Fever, Chills Cardiovascular: Negative for: Chest Pain Respiratory: Negative for: Shortness of Breath Gastrointestinal: Negative for: Nausea, Vomiting, Abdominal Pain, Diarrhea Skin: Negative for: Rash Neurological: Positive for: Other (EtOH intoxication) Physical Exam - Physical Exam Appears: Well, Non-toxic, Unkempt, Other (appears mildly intoxicated) Skin: Normal Color, Warm, Dry, Other Head: Atraumatic, Normacephalic Oral Mucosa: Moist Neck: Normal, Normal ROM, No Midline Cervical Tenderness, No Paracervical Tenderness, No Step Off Deformity, Supple Cardiovascular: Rhythm Regular Respiratory: Normal Breath Sounds, No Rales, No Rhonchi, No Wheezing Gastrointestinal/Abdominal: Normal Exam, Bowel Sounds, Soft, No Tenderness Extremity: Normal ROM, No Tenderness, No Pedal Edema, No Deformity Extremity: Bilateral: Atraumatic Neurological/Psych: Other (mildly intoxicated, awake & alertt) Gait: Unsteady ED Course And Treatment O2 Sat by Pulse Oximetry: 95 (RA) Pulse Ox Interpretation: Normal Progress Note: Patient pending sobriety. Accucheck WNL. Reevaluation Time: 18:15 Reassessment Condition: Improved (Patient is currently AAOx3, ambulating normally in the ED. He is clinically sober at this time, will discharge.) Disposition Counseled Patient/Family Regarding: Diagnosis, Need For Followup - Disposition Referrals: [facility] [Outside] Disposition: HOME/ ROUTINE Disposition Time: 18:15 Condition: STABLE Forms: [employer] (Bruneian) Print Language: AZERBAIJANI - Clinical Impression Clinical Impression: Homelessness, Alcohol abuse with intoxication - Scribe Statement The provider has reviewed the documentation as recorded by the Scribe Ly Oconnor All medical record entries made by the Scribe were at my direction and personally dictated by me. I have reviewed the chart and agree that the record accurately reflects my personal performance of the history, physical exam, medical decision making, and the department course for this patient. I have also personally directed, reviewed, and agree with the discharge instructions and disposition.
[2017-10-13 18:23] VITALS: BP 121/76; PULSE 88; TEMP 97.8
== END 2017-10-13 18:20 | disposition home or self-care (01) ==
LOC: C.ER 15:44
DX: F10.129 Alcohol abuse with intoxication, unspecified (principal); Z59.0 Homelessness

== ENCOUNTER 2017-10-14 15:41 | Emergency (ER) | payer MEDICARE ==
[2017-10-14 15:41] VITALS: BMI 27.3
[2017-10-14 15:45] VITALS: BP 111/70; PULSE 93; RESP 14; TEMP 98.6; O2SAT 97
== END 2017-10-14 16:38 | disposition left against medical advice (07) ==
LOC: C.ER 15:41
DX: Z02.89 Encounter for other administrative examinations (principal); F19.10 Other psychoactive substance abuse, uncomplicated

== ENCOUNTER 2017-10-16 11:06 | Emergency (ER) | payer MEDICARE ==
[2017-10-16 11:22] VITALS: BMI 25.0
[2017-10-16 11:53] VITALS: BP 103/69; PULSE 78; RESP 18; TEMP 98.5; O2SAT 96
--- NOTE | 2017-10-16 12:26 | C.PDOC ---
History Of Present Illness 71 year old male is brought to the ED by ambulance for evaluation of acute alcohol intoxication for an unknown duration. Patient is familiar to this ED and has had many prior visits for similar complaints. Patient admits to drinking earlier today and denies any complaints at this time. Time Seen by Provider: 10/16/17 11:11 Chief Complaint (Nursing): Medical Clearance History Per: Patient, EMS History/Exam Limitations: intoxication Onset/Duration Of Symptoms: Hrs Current Symptoms Are (Timing): Still Present Suicide/Self Injury Attempted (Context): None Modifying Factor(s): Alcohol Associated Symptoms: denies: Suicidal Thoughts, Suicidal Plan Involuntary Hold By: None Recent travel outside of the [place]: No Additional History Per: Patient, EMS Past Medical History Reviewed: Historical Data, Nursing Documentation, Vital Signs Vital Signs: Last Vital Signs Temp 98.5 F 10/16/17 11:25 Pulse 78 10/16/17 11:25 Resp 18 10/16/17 11:25 BP 103/69 10/16/17 11:25 Pulse Ox 96 10/16/17 12:53 - Medical History PMH: Anxiety, Asthma, Back Problems, Bipolar Disorder, Depression, Gastritis, HTN, Schizophrenia, Chronic Pain (Back Pain) Surgical History: Hernia Repair, Tonsillectomy - [facility] Procedures DETOXIFICATION SERVICES FOR SUBSTANCE ABUSE TREATMENT (12/26/15) Family History: States: Unknown Family Hx - Social History Hx Tobacco Use: No Hx Alcohol Use: Yes Hx Substance Use: No - Immunization History Hx Tetanus Toxoid Vaccination: No Hx Influenza Vaccination: No Hx Pneumococcal Vaccination: No Review Of Systems Psych: Positive for: Other (EtOH intoxication ). Negative for: Suicidal ideation Physical Exam - Physical Exam Appears: Non-toxic, No Acute Distress, Other (visibly intoxicated ) Skin: Normal Color, Warm, Dry Head: Atraumatic, Normacephalic Eye(s): bilateral: Normal Inspection Oral Mucosa: Moist, Other (alcohol on breath ) Neck: Supple Chest: Symmetrical, No Deformity, No Tenderness Cardiovascular: Rhythm Regular Respiratory: Normal Breath Sounds, No Accessory Muscle Use Extremity: Normal ROM, Capillary Refill (less than 2 seconds ) Neurological/Psych: Other (arousable to touch and verbal stimuli ) ED Course And Treatment O2 Sat by Pulse Oximetry: 96 (on RA) Pulse Ox Interpretation: Normal Medical Decision Making Medical Decision Making: Assessment: acute alcohol intoxication Progress: On re-exam, patient is resting comfortably and is showing no signs of distress. Patient is showing no signs of clinical intoxication. Patient ambulated out of the ED with a steady gait. Disposition Counseled Patient/Family Regarding: Studies Performed, Diagnosis - Disposition Referrals: [facility] [Outside] Disposition: HOME/ ROUTINE Disposition Time: 12:25 Condition: STABLE Forms: [facility] (Persian), General Discharge Instructions - Clinical Impression Clinical Impression: Intoxication - Scribe Statement The provider has reviewed the documentation as recorded by the Scribe (Chrissy Leiva) Provider Attestation: All medical record entries made by the Scribe were at my direction and personally dictated by me. I have reviewed the chart and agree that the record accurately reflects my personal performance of the history, physical exam, medical decision making, and the department course for this patient. I have also personally directed, reviewed, and agree with the discharge instructions and disposition.
== END 2017-10-16 12:15 | disposition home or self-care (01) ==
LOC: C.ER 11:06
DX: F10.129 Alcohol abuse with intoxication, unspecified (principal); F20.9 Schizophrenia, unspecified; I10 Essential (primary) hypertension

== ENCOUNTER 2017-10-16 13:37 | Emergency (ER) | payer MEDICARE ==
[2017-10-16 13:37] VITALS: BMI 27.3
--- NOTE | 2017-10-16 15:05 | C.PDOC ---
History Of Present Illness 71 year old male is brought to the ED by ambulance for evaluation after he was found publicly intoxicated prior to arrival. Patient is familiar to this ED and has had many prior visits with similar presentation. He was last seen in this ED this morning for alcohol intoxication and walked out of the ED on his own. Patient admits to drinking and denies any new injuries at this time. Chief Complaint (Nursing): Substance Abuse History Per: Patient, EMS History/Exam Limitations: intoxication Onset/Duration Of Symptoms: Hrs Current Symptoms Are (Timing): Still Present Suicide/Self Injury Attempted (Context): None Modifying Factor(s): Alcohol Associated Symptoms: denies: Suicidal Thoughts, Suicidal Plan Involuntary Hold By: None Recent travel outside of the [place]: No Additional History Per: Patient Past Medical History Reviewed: Historical Data, Nursing Documentation, Vital Signs Vital Signs: Last Vital Signs Temp 98.5 F 10/16/17 15:22 Pulse 96 H 10/16/17 15:22 Resp 19 10/16/17 15:22 BP 114/76 10/16/17 15:22 Pulse Ox 98 10/16/17 15:22 - Medical History PMH: Anxiety, Asthma, Back Problems, Bipolar Disorder, Depression, Gastritis, HTN, Schizophrenia, Chronic Pain (Back Pain) Surgical History: Hernia Repair, Tonsillectomy - [facility] Procedures DETOXIFICATION SERVICES FOR SUBSTANCE ABUSE TREATMENT (12/26/15) Family History: States: Unknown Family Hx - Social History Hx Tobacco Use: No Hx Alcohol Use: Yes Hx Substance Use: No - Immunization History Hx Tetanus Toxoid Vaccination: No Hx Influenza Vaccination: No Hx Pneumococcal Vaccination: No Review Of Systems Psych: Positive for: Other (EtOH intoxication ) Physical Exam - Physical Exam Appears: Non-toxic, No Acute Distress, Other (visibly intoxicated ) Skin: Normal Color, Warm, Dry Head: Atraumatic, Normacephalic Eye(s): bilateral: Normal Inspection Oral Mucosa: Moist, Other (alcohol on breath ) Neck: Supple Chest: Symmetrical, No Deformity Cardiovascular: Rhythm Regular Respiratory: Normal Breath Sounds, No Accessory Muscle Use Extremity: Normal ROM, Capillary Refill (less than 2 seconds ) Neurological/Psych: Other (arousable to touch and verbal stimuli ) ED Course And Treatment O2 Sat by Pulse Oximetry: 94 Medical Decision Making Medical Decision Making: Progress: On re-exam, patient is resting comfortably and is showing no signs of distress. Patient is ambulatory in the ED with a steady gait and is stable for discharge. Disposition - Disposition Referrals: [facility] [Outside] [facility] [Outside] Disposition: HOME/ ROUTINE Disposition Time: 14:55 Condition: GOOD Additional Instructions: ZE PEARL, thank you for letting us take care of you today. Your provider was Marshall Buenrostro DO and you were treated for SUBSTANCE ABUSE. The emergency medical care you received today was directed at your acute symptoms. If you were prescribed any medication, please fill it and take as directed. It may take several days for your symptoms to resolve. Return to the Emergency Department if your symptoms worsen, do not improve, or if you have any other problems. Please contact your doctor or call one of the physicians/clinics you have been referred to that are listed on the Patient Visit Information form that is included in your discharge packet. Bring any paperwork you were given at discharge with you along with any medications you are taking to your follow up visit. Our treatment cannot replace ongoing medical care by a primary care provider outside of the emergency department. Thank you for allowing the [facility] team to be part of your care today. Follow up with the clinic for outpatient care. Instructions: Alcohol Abuse and Alcoholism (DC) Forms: [employer] (Danish) - Clinical Impression Clinical Impression: Alcohol abuse - Scribe Statement The provider has reviewed the documentation as recorded by the Scribe (Chrissy Leiva) Provider Attestation: All medical record entries made by the Scribe were at my direction and personally dictated by me. I have reviewed the chart and agree that the record accurately reflects my personal performance of the history, physical exam, medical decision making, and the department course for this patient. I have also personally directed, reviewed, and agree with the discharge instructions and disposition.
[2017-10-16 15:24] VITALS: BP 114/76; PULSE 96; RESP 19; TEMP 98.5
[2017-10-16 23:57] VITALS: O2SAT 94
== END 2017-10-16 15:25 | disposition home or self-care (01) ==
LOC: C.ER 13:37
DX: F10.129 Alcohol abuse with intoxication, unspecified (principal); F20.9 Schizophrenia, unspecified; I10 Essential (primary) hypertension

== ENCOUNTER 2017-10-16 17:33 | Emergency (ER) | payer MEDICARE ==
[2017-10-16 17:33] VITALS: BMI 27.3
--- NOTE | 2017-10-16 18:18 | C.PDOC ---
History Of Present Illness 71 year old male is brought to the ED by ambulance for evaluation of acute alcohol intoxication. Patient is familiar to this ED and has had many prior visits for similar presentations. Current visit is patient's third evaluation of similar complaint in this ED today. Patient admits to drinking earlier today and denies any new injuries. Time Seen by Provider: 10/16/17 17:44 Chief Complaint (Nursing): Substance Abuse History Per: Patient History/Exam Limitations: intoxication Onset/Duration Of Symptoms: Hrs Current Symptoms Are (Timing): Still Present Suicide/Self Injury Attempted (Context): None Modifying Factor(s): Alcohol Associated Symptoms: denies: Suicidal Thoughts, Suicidal Plan Additional History Per: Patient Past Medical History Reviewed: Historical Data, Nursing Documentation, Vital Signs - Medical History PMH: Anxiety, Asthma, Back Problems, Bipolar Disorder, Depression, Gastritis, HTN, Schizophrenia, Chronic Pain (Back Pain) Surgical History: Hernia Repair, Tonsillectomy - [facility] Procedures DETOXIFICATION SERVICES FOR SUBSTANCE ABUSE TREATMENT (12/26/15) Family History: States: Unknown Family Hx - Social History Hx Tobacco Use: No Hx Alcohol Use: Yes Hx Substance Use: No - Immunization History Hx Tetanus Toxoid Vaccination: No Hx Influenza Vaccination: No Hx Pneumococcal Vaccination: No Review Of Systems Psych: Positive for: Other (EtOH intoxication ) Physical Exam - Physical Exam Appears: Non-toxic, No Acute Distress, Other (visibly intoxicated ) Skin: Normal Color, Warm, Dry Head: Atraumatic, Normacephalic Eye(s): bilateral: Normal Inspection Oral Mucosa: Moist, Other (alcohol on breath ) Neck: Supple Chest: Symmetrical, No Deformity, No Tenderness Cardiovascular: Rhythm Regular Respiratory: Normal Breath Sounds, No Accessory Muscle Use Extremity: Normal ROM Neurological/Psych: Other (arousable to touch and verbal stimuli ) Medical Decision Making Medical Decision Making: Assessment: EtOH intoxication Progress: Labs ordered and reviewed. 1900 - patient remained comfortable during observation case s.o to Dr. Dale at 1900 pending sobriety, reevaluation and disposition Disposition - Disposition Disposition Time: 19:00 Condition: STABLE Forms: [facility] (Sami) - Clinical Impression Clinical Impression: Alcohol intoxication - Scribe Statement The provider has reviewed the documentation as recorded by the Scribe (Chrissy Leiva) Provider Attestation: All medical record entries made by the Scribe were at my direction and personally dictated by me. I have reviewed the chart and agree that the record accurately reflects my personal performance of the history, physical exam, medical decision making, and the department course for this patient. I have also personally directed, reviewed, and agree with the discharge instructions and disposition. Physician Patient Turnover Patient Signed Over To: Pao Dale Handoff Comments: pending sobriety , reevaluation and disposition
== END 2017-10-16 20:45 | disposition left against medical advice (07) ==
LOC: C.ER 17:33
DX: Z02.89 Encounter for other administrative examinations (principal)
CPT/HCPCS: 99283; LWBS0

== ENCOUNTER 2017-10-17 01:16 | Emergency (ER) | payer MEDICARE ==
[2017-10-17 01:17] VITALS: BMI 27.3
[2017-10-17 01:25] VITALS: PULSE 80; RESP 18
--- NOTE | 2017-10-17 02:00 | C.PDOC ---
History Of Present Illness 71 year old male, homeless, is brought to the ED by ambulance for evaluation of acute alcohol intoxication. Patient is familiar to this ED and has had many prior visits for similar presentations. Current visit is patient's fourth evaluation for past 24 hours of similar complaint in this ED today. Patient admits to drinking earlier today and denies any new injuries. AMbulatory in ED with baseline gait. Time Seen by Provider: 10/17/17 01:35 Chief Complaint (Nursing): Substance Abuse History Per: Patient, EMS Past Medical History Reviewed: Historical Data, Nursing Documentation, Vital Signs Vital Signs: Last Vital Signs Temp 97.7 F 10/17/17 05:20 Pulse 80 10/17/17 05:20 Resp 18 10/17/17 05:20 BP 113/75 10/17/17 05:20 Pulse Ox 98 10/17/17 05:23 - Medical History PMH: Anxiety, Asthma, Back Problems, Bipolar Disorder, Depression, Gastritis, HTN, Schizophrenia, Chronic Pain (Back Pain) Surgical History: Hernia Repair, Tonsillectomy - [facility] Procedures DETOXIFICATION SERVICES FOR SUBSTANCE ABUSE TREATMENT (12/26/15) Family History: States: Unknown Family Hx - Social History Hx Tobacco Use: No Hx Alcohol Use: Yes Hx Substance Use: No - Immunization History Hx Tetanus Toxoid Vaccination: No Hx Influenza Vaccination: No Hx Pneumococcal Vaccination: No Review Of Systems Review Of Systems: ROS cannot be obtained secondary to pt's inabilty to answer questions. (etoh intoxication) Physical Exam - Physical Exam Appears: Non-toxic, No Acute Distress, Unkempt Skin: Normal Color, Warm, No Ecchymosis Head: Atraumatic, Normacephalic Eye(s): bilateral: PERRL Oral Mucosa: Moist, Other (alcohol odor) Throat: No Drooling Neck: Supple Cardiovascular: Rhythm Regular, No Murmur, No JVD Respiratory: No Decreased Breath Sounds, No Accessory Muscle Use, No Stridor, No Wheezing Gastrointestinal/Abdominal: Soft, No Tenderness Extremity: Normal ROM, No Pedal Edema Neurological/Psych: Other (arousable to verbal stimuli and touche) ED Course And Treatment O2 Sat by Pulse Oximetry: 98 Pulse Ox Interpretation: Normal Progress Note: Assessment: acute alcohol intoxication, homeless. FSBS 84. Pt wqas OBS in ED for 4 hours and remained stable. AFebrfile, hemodynamicaly stable. On re-exam, patient is resting comfortably and is showing no signs of distress. Patient is showing no signs of clinical intoxication. Patient ambulated out of the ED with a baseline gait. Disposition Counseled Patient/Family Regarding: Studies Performed, Diagnosis, Need For Followup - Disposition Referrals: [facility] [Outside] [facility]ics Anonymous [Outside] Disposition: HOME/ ROUTINE Disposition Time: 05:23 Condition: STABLE Instructions: Alcohol Abuse and Alcoholism (DC) Forms: [facility] (Upper Sorbian) - Clinical Impression Clinical Impression: Alcohol intoxication
[2017-10-17 05:20] VITALS: BP 113/75; TEMP 97.7
[2017-10-17 05:23] VITALS: O2SAT 98
== END 2017-10-17 05:27 | disposition home or self-care (01) ==
LOC: C.ER 01:16
DX: F10.129 Alcohol abuse with intoxication, unspecified (principal); Y90.9 Presence of alcohol in blood, level not specified

== ENCOUNTER 2017-10-19 18:48 | Emergency (ER) | payer MEDICARE ==
[2017-10-19 18:48] VITALS: BMI 27.3
[2017-10-19 19:30] VITALS: BP 100/69; PULSE 87; RESP 20; TEMP 99.1; O2SAT 95
--- NOTE | 2017-10-19 19:46 | C.PDOC ---
History Of Present Illness 71 year old male is brought to the ED by EMS for public intoxication and malingering. Patient has multiple prior visits to the ED for similar presentation, last visit to the ED was on 10/17. Patient denies SI/HI, hallucinations, fever, chills, CP, SOB. Time Seen by Provider: 10/19/17 19:09 Chief Complaint (Nursing): Substance Abuse History Per: Patient History/Exam Limitations: no limitations Onset/Duration Of Symptoms: Days Current Symptoms Are (Timing): Still Present Suicide/Self Injury Attempted (Context): None Modifying Factor(s): Alcohol Associated Symptoms: denies: Depression, Suicidal Thoughts, Suicidal Plan Involuntary Hold By: None Recent travel outside of the [place]: No Additional History Per: Patient, EMS Past Medical History Reviewed: Historical Data, Nursing Documentation, Vital Signs Vital Signs: Last Vital Signs Temp 99.1 F 10/19/17 19:00 Pulse 87 10/19/17 19:00 Resp 20 10/19/17 19:00 BP 100/69 10/19/17 19:00 Pulse Ox 95 10/19/17 19:46 - Medical History PMH: Anxiety, Asthma, Back Problems, Bipolar Disorder, Depression, Gastritis, HTN, Schizophrenia, Chronic Pain (Back Pain) Surgical History: Hernia Repair, Tonsillectomy - [facility] Procedures DETOXIFICATION SERVICES FOR SUBSTANCE ABUSE TREATMENT (12/26/15) Family History: States: Unknown Family Hx - Social History Hx Tobacco Use: No Hx Alcohol Use: Yes Hx Substance Use: No - Immunization History Hx Tetanus Toxoid Vaccination: No Hx Influenza Vaccination: No Hx Pneumococcal Vaccination: No Review Of Systems Constitutional: Negative for: Fever, Chills Cardiovascular: Negative for: Chest Pain, Palpitations Respiratory: Negative for: Shortness of Breath Gastrointestinal: Negative for: Nausea, Vomiting Skin: Negative for: Rash Psych: Negative for: Depression, Suicidal ideation Physical Exam - Physical Exam Appears: Non-toxic, No Acute Distress, Unkempt Skin: Normal Color, Warm, Dry Head: Atraumatic, Normacephalic Eye(s): bilateral: Normal Inspection Oral Mucosa: Moist Neck: Normal ROM, Supple Chest: Symmetrical Cardiovascular: Rhythm Regular Respiratory: Normal Breath Sounds, No Rales, No Rhonchi, No Wheezing Gastrointestinal/Abdominal: Soft, No Tenderness, No Guarding, No Rebound Extremity: Normal ROM, No Tenderness, No Swelling Neurological/Psych: Oriented x3, Normal Speech Gait: Steady ED Course And Treatment O2 Sat by Pulse Oximetry: 95 (ON RA) Pulse Ox Interpretation: Normal Medical Decision Making Medical Decision Making: typical malingering/alcohol use. no acute issues. Disposition Doctor Will See Patient In The: Office Counseled Patient/Family Regarding: Studies Performed, Diagnosis - Disposition Referrals: Alcoholics Anonymous [Outside] [facility] [Outside] [facility] [Outside] [facility] [Outside] [facility] [Outside] Disposition: HOME/ ROUTINE Disposition Time: 19:45 Condition: GOOD Instructions: Alcohol Abuse and Alcoholism (DC), Effects of Alcohol on Your Health Forms: [employer] (Saudi Arabian) - Clinical Impression Clinical Impression: Homelessness, Alcohol abuse - Scribe Statement The provider has reviewed the documentation as recorded by the Scribe Eulogio Sanchez All medical record entries made by the Scribe were at my direction and personally dictated by me. I have reviewed the chart and agree that the record accurately reflects my personal performance of the history, physical exam, medical decision making, and the department course for this patient. I have also personally directed, reviewed, and agree with the discharge instructions and disposition.
== END 2017-10-19 20:00 | disposition home or self-care (01) ==
LOC: C.ER 18:48
DX: F10.10 Alcohol abuse, uncomplicated (principal); Y90.9 Presence of alcohol in blood, level not specified; Z59.0 Homelessness

== ENCOUNTER 2017-10-21 15:15 | Emergency (ER) | payer MEDICARE ==
[2017-10-21 15:15] VITALS: BMI 27.3
[2017-10-21 15:58] VITALS: PULSE 95; RESP 18
--- NOTE | 2017-10-21 16:12 | C.PDOC ---
History Of Present Illness 71 year old man brought by EMS to the ER for alcohol abuse. Patient has no signs of injury and no complaints. Time Seen by Provider: 10/21/17 15:35 Chief Complaint (Nursing): Substance Abuse History Per: EMS History/Exam Limitations: intoxication Onset/Duration Of Symptoms: Hrs Current Symptoms Are (Timing): Still Present Modifying Factor(s): Alcohol Past Medical History Vital Signs: Last Vital Signs Temp 98.3 F 10/21/17 15:57 Pulse 95 H 10/21/17 15:57 Resp 18 10/21/17 15:57 BP 112/77 10/21/17 15:57 Pulse Ox 96 10/21/17 18:23 - Medical History PMH: Anxiety, Asthma, Back Problems, Bipolar Disorder, Depression, Gastritis, HTN, Schizophrenia, Chronic Pain (Back Pain) Surgical History: Hernia Repair, Tonsillectomy - [facility] Procedures DETOXIFICATION SERVICES FOR SUBSTANCE ABUSE TREATMENT (12/26/15) Family History: States: Unknown Family Hx - Social History Hx Tobacco Use: No Hx Alcohol Use: Yes Hx Substance Use: No - Immunization History Hx Tetanus Toxoid Vaccination: No Hx Influenza Vaccination: No Hx Pneumococcal Vaccination: No Review Of Systems Except As Marked, All Systems Reviewed And Found Negative. Constitutional: Negative for: Fever, Chills Cardiovascular: Negative for: Chest Pain, Palpitations Respiratory: Negative for: Cough, Shortness of Breath Physical Exam - Physical Exam Appears: Non-toxic, No Acute Distress, Other (Alcohol on breath, no signs of injury ) Skin: Normal Color, Warm, Dry Head: Atraumatic, Normacephalic Eye(s): bilateral: Normal Inspection Oral Mucosa: Moist Neck: Normal, Normal ROM, Supple Chest: Symmetrical, No Deformity Cardiovascular: Rhythm Regular Respiratory: Normal Breath Sounds, No Rales, No Rhonchi, No Wheezing Gastrointestinal/Abdominal: Normal Exam Back: No CVA Tenderness Extremity: Normal ROM (x4) Neurological/Psych: Oriented x3, Normal Speech ED Course And Treatment O2 Sat by Pulse Oximetry: 96 (RA) Pulse Ox Interpretation: Normal Medical Decision Making Medical Decision Making: Patient is awake, alert, and oriented with steady gait, will discharge home, assessment is ETOH intoxication. Disposition Counseled Patient/Family Regarding: Studies Performed, Diagnosis, Need For Followup - Disposition Referrals: [facility] [Outside] Disposition: HOME/ ROUTINE Disposition Time: 18:27 Condition: STABLE Additional Instructions: decrease your alcohol use follow up with medical clinic in 2 days call to make an appointment return to hospital if symptoms worsens or progress Instructions: Alcohol Use - When Is Drinking a Problem?, Alcohol Abuse and Alcoholism (DC) Forms: [facility] (Ugandan), Gen Discharge Inst Ugandan Print Language: ENGLISH - Clinical Impression Clinical Impression: Alcohol dependence, Alcohol abuse with intoxication - Scribe Statement The provider has reviewed the documentation as recorded by the Omar Schneider Do Provider Attestation: All medical record entries made by the Omar were at my direction and personally dictated by me. I have reviewed the chart and agree that the record accurately reflects my personal performance of the history, physical exam, medical decision making, and the department course for this patient. I have also personally directed, reviewed, and agree with the discharge instructions and disposition.
[2017-10-21 19:14] VITALS: BP 121/85; TEMP 98.4; O2SAT 97
== END 2017-10-21 19:14 | disposition home or self-care (01) ==
LOC: C.ER 15:15
DX: F10.229 Alcohol dependence with intoxication, unspecified (principal); Y90.9 Presence of alcohol in blood, level not specified

== ENCOUNTER 2017-10-22 15:51 | Emergency (ER) | payer MEDICARE ==
[2017-10-22 15:51] VITALS: BMI 27.3
--- NOTE | 2017-10-22 16:26 | C.PDOC ---
History Of Present Illness 71yo male, brought to ER for evaluation due to intoxication. At present, patient denies any medical complaints and states "I am fine." He denies any fever, chills, chest pain, shortness of breath or abdominal pain. Time Seen by Provider: 10/22/17 15:57 Chief Complaint (Nursing): Substance Abuse History Per: Patient History/Exam Limitations: no limitations Current Symptoms Are (Timing): Gone Suicide/Self Injury Attempted (Context): None Modifying Factor(s): None Severity: None Past Medical History Reviewed: Historical Data, Nursing Documentation, Vital Signs - Medical History PMH: Anxiety, Asthma, Back Problems, Bipolar Disorder, Depression, Gastritis, HTN, Schizophrenia, Chronic Pain (Back Pain) Surgical History: Hernia Repair, Tonsillectomy - [facility] Procedures DETOXIFICATION SERVICES FOR SUBSTANCE ABUSE TREATMENT (12/26/15) Family History: States: Unknown Family Hx - Social History Hx Tobacco Use: No Hx Alcohol Use: Yes Hx Substance Use: No - Immunization History Hx Tetanus Toxoid Vaccination: No Hx Influenza Vaccination: No Hx Pneumococcal Vaccination: No Review Of Systems Except As Marked, All Systems Reviewed And Found Negative. Constitutional: Negative for: Fever, Chills Cardiovascular: Negative for: Chest Pain Respiratory: Negative for: Shortness of Breath Gastrointestinal: Negative for: Abdominal Pain Physical Exam - Physical Exam Appears: Non-toxic Skin: Normal Color Head: Normacephalic Eye(s): bilateral: Normal Inspection Neck: Supple Chest: Symmetrical Cardiovascular: Rhythm Regular Respiratory: Normal Breath Sounds Extremity: Normal ROM Neurological/Psych: Oriented x3 ED Course And Treatment Progress Note: Patient became agitated when the security guards took his alcohol away. Ambulatory with steady gait. Wants to leave. Medical Decision Making Medical Decision Making: Plan: -- Patient to be observed in ER. Disposition - Disposition Disposition: HOME/ ROUTINE Disposition Time: 16:38 Condition: STABLE Forms: [facility] (Estonian) - Clinical Impression Clinical Impression: Alcoholism /alcohol abuse - Scribe Statement The provider has reviewed the documentation as recorded by the Scribe (Sirena Ramsey) Provider Attestation: All medical record entries made by the Scribe were at my direction and personally dictated by me. I have reviewed the chart and agree that the record accurately reflects my personal performance of the history, physical exam, medical decision making, and the department course for this patient. I have also personally directed, reviewed, and agree with the discharge instructions and disposition.
[2017-10-22 17:01] VITALS: BP 136/72; PULSE 78; RESP 18; TEMP 98; O2SAT 98
== END 2017-10-22 17:02 | disposition home or self-care (01) ==
LOC: C.ER 15:51
DX: F10.20 Alcohol dependence, uncomplicated (principal); F20.9 Schizophrenia, unspecified; I10 Essential (primary) hypertension

== ENCOUNTER 2017-10-23 14:02 | Emergency (ER) | payer MEDICARE ==
[2017-10-23 14:16] VITALS: BMI 22.0
[2017-10-23 14:18] VITALS: BP 110/76; PULSE 104; RESP 16; TEMP 99.2; O2SAT 95
--- NOTE | 2017-10-23 15:40 | C.PDOC ---
History Of Present Illness 71 y/o male brought to ED by EMS for acute public ETOH intoxication. Patient has many prior ED visits for intoxication and denies SI/HI, chest pain, sob, nausea, vomiting or any other complaints at this time. Time Seen by Provider: 10/23/17 15:12 Chief Complaint (Nursing): Substance Abuse History Per: Patient History/Exam Limitations: no limitations Onset/Duration Of Symptoms: Days Current Symptoms Are (Timing): Still Present Suicide/Self Injury Attempted (Context): None Modifying Factor(s): Alcohol Past Medical History Reviewed: Historical Data, Nursing Documentation, Vital Signs Vital Signs: Last Vital Signs Temp 99.2 F 10/23/17 14:08 Pulse 104 H 10/23/17 14:08 Resp 16 10/23/17 14:08 BP 110/76 10/23/17 14:08 Pulse Ox 95 10/23/17 17:27 - Medical History PMH: Anxiety, Asthma, Back Problems, Bipolar Disorder, Depression, Gastritis, HTN, Schizophrenia, Chronic Pain (Back Pain) Surgical History: Hernia Repair, Tonsillectomy - [facility] Procedures DETOXIFICATION SERVICES FOR SUBSTANCE ABUSE TREATMENT (12/26/15) Family History: States: No Known Family Hx - Social History Hx Tobacco Use: No Hx Alcohol Use: Yes Hx Substance Use: No - Immunization History Hx Tetanus Toxoid Vaccination: No Hx Influenza Vaccination: No Hx Pneumococcal Vaccination: No Review Of Systems Constitutional: Negative for: Fever, Chills Cardiovascular: Negative for: Chest Pain Gastrointestinal: Negative for: Nausea, Vomiting Skin: Negative for: Rash Neurological: Negative for: Weakness, Numbness Psych: Positive for: Other (ETOH intoxication) Physical Exam - Physical Exam Appears: Non-toxic, No Acute Distress, Other (ETOH on breath, unkempt and malodorous) Skin: Warm, Dry, No Rash Head: Atraumatic, Normacephalic Eye(s): bilateral: Normal Inspection Oral Mucosa: Moist Neck: Normal ROM, Supple Cardiovascular: Rhythm Regular Respiratory: Normal Breath Sounds, No Rales, No Rhonchi, No Wheezing Gastrointestinal/Abdominal: Soft, No Tenderness, No Guarding, No Rebound Extremity: Normal ROM, Capillary Refill (<2 seconds) Neurological/Psych: Oriented x3, Normal Speech, Normal Cognition ED Course And Treatment O2 Sat by Pulse Oximetry: 95 (RA) Pulse Ox Interpretation: Normal Medical Decision Making Medical Decision Making: pt reports he is hungry. given a sandwich 1715 pt ambulating with steady gait. d/c home. 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 - Scribe Statement The provider has reviewed the documentation as recorded by the Scribjackelyn Jo All medical record entries made by the Omar were at my direction and personally dictated by me. I have reviewed the chart and agree that the record accurately reflects my personal performance of the history, physical exam, medical decision making, and the department course for this patient. I have also personally directed, reviewed, and agree with the discharge instructions and disposition.
== END 2017-10-23 17:31 | disposition home or self-care (01) ==
LOC: C.ER 14:02
DX: F10.129 Alcohol abuse with intoxication, unspecified (principal)

== ENCOUNTER 2017-10-26 15:51 | Emergency (ER) | payer MEDICARE ==
[2017-10-26 15:51] VITALS: BMI 22.0
--- NOTE | 2017-10-26 16:20 | C.PDOC ---
History Of Present Illness 71 y/o male brought to ED by EMS for alcohol intoxication. Pt admits to drinking alcohol prior to arrival. Denies SI, HI, or physical complaints. Pt is well to known ED staff for multiple prior visits for similar complaints. Time Seen by Provider: 10/26/17 16:00 Chief Complaint (Nursing): Substance Abuse History Per: Patient, EMS History/Exam Limitations: no limitations Past Medical History Reviewed: Historical Data, Nursing Documentation, Vital Signs Vital Signs: Last Vital Signs Temp 98.4 F 10/26/17 19:57 Pulse 98 H 10/26/17 19:57 Resp 16 10/26/17 19:57 BP 115/80 10/26/17 19:57 Pulse Ox 95 10/26/17 19:57 - Medical History PMH: Anxiety, Asthma, Back Problems, Bipolar Disorder, Depression, Gastritis, HTN, Schizophrenia, Chronic Pain (Back Pain) Surgical History: Hernia Repair, Tonsillectomy - [facility] Procedures DETOXIFICATION SERVICES FOR SUBSTANCE ABUSE TREATMENT (12/26/15) Family History: States: Unknown Family Hx - Social History Hx Tobacco Use: No Hx Alcohol Use: Yes Hx Substance Use: No - Immunization History Hx Tetanus Toxoid Vaccination: No Hx Influenza Vaccination: No Hx Pneumococcal Vaccination: No Review Of Systems Except As Marked, All Systems Reviewed And Found Negative. Constitutional: Negative for: Fever, Chills Cardiovascular: Negative for: Chest Pain, Palpitations Respiratory: Negative for: Cough, Shortness of Breath Physical Exam - Physical Exam Appears: Non-toxic, No Acute Distress Skin: Normal Color, Warm, Dry Head: Atraumatic, Normacephalic Eye(s): bilateral: Normal Inspection Oral Mucosa: Moist, Other (EtOH on breath) Neck: Supple Cardiovascular: Rhythm Regular, No Murmur Respiratory: Normal Breath Sounds, No Rales, No Rhonchi, No Wheezing Gastrointestinal/Abdominal: Soft, No Tenderness Extremity: Normal ROM Neurological/Psych: Oriented x3, Normal Speech ED Course And Treatment O2 Sat by Pulse Oximetry: 95 Pulse Ox Interpretation: Normal Medical Decision Making Medical Decision Making: pt observed for clinical sobriety for 5 hours. stable for dc. Disposition - Disposition Disposition: HOME/ ROUTINE Disposition Time: 10:00 Condition: STABLE Additional Instructions: return to er with worsening symptoms or concenrs. Instructions: Alcohol Abuse and Alcoholism (DC) Forms: [facility] (Arabic) - Clinical Impression Clinical Impression: Alcohol abuse - Scribe Statement The provider has reviewed the documentation as recorded by the Scribe KP All medical record entries made by the Scribe were at my direction and personally dictated by me. I have reviewed the chart and agree that the record accurately reflects my personal performance of the history, physical exam, medical decision making, and the department course for this patient. I have also personally directed, reviewed, and agree with the discharge instructions and disposition.
[2017-10-26 19:58] VITALS: BP 115/80; PULSE 98; RESP 16; TEMP 98.4; O2SAT 95
== END 2017-10-26 20:17 | disposition home or self-care (01) ==
LOC: C.ER 15:51
DX: F10.10 Alcohol abuse, uncomplicated (principal); Y90.9 Presence of alcohol in blood, level not specified

== ENCOUNTER 2017-10-27 14:36 | Emergency (ER) | payer MEDICARE ==
[2017-10-27 14:37] VITALS: BMI 22.0
== END 2017-10-27 17:02 | disposition left against medical advice (07) ==
LOC: C.ER 14:36
DX: Z02.89 Encounter for other administrative examinations (principal); F19.10 Other psychoactive substance abuse, uncomplicated
CPT/HCPCS: 82948; LWBS0

== ENCOUNTER 2017-10-27 20:54 | Emergency (ER) | payer MEDICARE ==
[2017-10-27 20:54] VITALS: BMI 22.0
[2017-10-27 21:19] VITALS: RESP 16; O2SAT 96
--- NOTE | 2017-10-27 22:42 | C.PDOC ---
History Of Present Illness 71 y/o male brought to ED for public intoxication. Patient states he wants to stay the night. Denies any injuries, trauma, or any physical complaints. Time Seen by Provider: 10/27/17 22:41 Chief Complaint (Nursing): Substance Abuse History Per: Patient History/Exam Limitations: no limitations Onset/Duration Of Symptoms: Hrs Current Symptoms Are (Timing): Still Present Suicide/Self Injury Attempted (Context): None Modifying Factor(s): Alcohol Associated Symptoms: denies: Suicidal Thoughts, Suicidal Plan Involuntary Hold By: None Recent travel outside of the [place]: No Past Medical History Reviewed: Historical Data, Nursing Documentation, Vital Signs Vital Signs: Last Vital Signs Temp 98.5 F 10/27/17 21:16 Pulse 90 10/27/17 21:16 Resp 16 10/27/17 21:16 BP 130/80 10/27/17 21:16 Pulse Ox 96 10/27/17 22:57 - Medical History PMH: Anxiety, Asthma, Back Problems, Bipolar Disorder, Depression, Gastritis, HTN, Schizophrenia, Chronic Pain (Back Pain) Surgical History: Hernia Repair, Tonsillectomy - [facility] Procedures DETOXIFICATION SERVICES FOR SUBSTANCE ABUSE TREATMENT (12/26/15) Family History: States: Unknown Family Hx - Social History Hx Tobacco Use: No Hx Alcohol Use: Yes Hx Substance Use: No - Immunization History Hx Tetanus Toxoid Vaccination: No Hx Influenza Vaccination: No Hx Pneumococcal Vaccination: No Review Of Systems Constitutional: Negative for: Fever, Chills Gastrointestinal: Negative for: Nausea, Vomiting, Abdominal Pain, Diarrhea Skin: Negative for: Rash Neurological: Negative for: Weakness, Numbness Psych: Negative for: Suicidal ideation Physical Exam - Physical Exam Appears: Non-toxic, No Acute Distress, Other (No obvious injuries or trauma ) Skin: Warm, Dry Head: Normacephalic Eye(s): bilateral: Normal Inspection Oral Mucosa: Moist Neck: Trachea Midline, Supple Chest: Symmetrical Cardiovascular: Rhythm Regular Respiratory: No Rales, No Rhonchi, No Wheezing Gastrointestinal/Abdominal: Soft, No Tenderness, No Distention Extremity: Normal ROM, No Deformity Extremity: Bilateral: Atraumatic, Normal Color And Temperature, Normal ROM Neurological/Psych: Oriented x3, Normal Speech ED Course And Treatment O2 Sat by Pulse Oximetry: 96 (RA) Pulse Ox Interpretation: Normal Reevaluation Time: 04:43 Reassessment Condition: Improved Disposition Counseled Patient/Family Regarding: Studies Performed, Diagnosis, Need For Followup - Disposition Referrals: [facility] [Outside] Disposition: HOME/ ROUTINE Disposition Time: 22:42 Condition: FAIR Instructions: Alcohol Abuse and Alcoholism (DC) Forms: [facility] (Peruvian) - Clinical Impression Clinical Impression: Alcohol abuse with intoxication - Scribe Statement The provider has reviewed the documentation as recorded by the Scribe Lizet White All medical record entries made by the Augustaibjackelyn were at my direction and personally dictated by me. I have reviewed the chart and agree that the record accurately reflects my personal performance of the history, physical exam, medical decision making, and the department course for this patient. I have also personally directed, reviewed, and agree with the discharge instructions and disposition.
[2017-10-28 05:20] VITALS: BP 157/94; PULSE 91; TEMP 97.8
== END 2017-10-28 05:20 | disposition home or self-care (01) ==
LOC: C.ER 20:54
DX: F10.129 Alcohol abuse with intoxication, unspecified (principal)

== ENCOUNTER 2017-10-29 15:00 | Emergency (ER) | payer MEDICARE ==
[2017-10-29 15:00] VITALS: BMI 22.0
[2017-10-29 15:19] VITALS: BP 106/74; PULSE 102; RESP 18; TEMP 98.8; O2SAT 98
--- NOTE | 2017-10-29 16:08 | C.PDOC ---
History Of Present Illness 71-year-old male, presents to the emergency department accompanied by EMS with complaints of publc intoxication, patient has a Hx of multiple visits to ED for similar presentation. He has no complaints at this time. Time Seen by Provider: 10/29/17 15:05 Chief Complaint (Nursing): Substance Abuse History Per: EMS History/Exam Limitations: intoxication Current Symptoms Are (Timing): Still Present Past Medical History Reviewed: Historical Data, Nursing Documentation, Vital Signs Vital Signs: Last Vital Signs Temp 98.8 F 10/29/17 15:08 Pulse 102 H 10/29/17 15:08 Resp 18 10/29/17 15:08 BP 106/74 10/29/17 15:08 Pulse Ox 98 10/29/17 16:12 - Medical History PMH: Anxiety, Asthma, Back Problems, Bipolar Disorder, Depression, Gastritis, HTN, Schizophrenia, Chronic Pain (Back Pain) Surgical History: Hernia Repair, Tonsillectomy - [facility] Procedures DETOXIFICATION SERVICES FOR SUBSTANCE ABUSE TREATMENT (12/26/15) Family History: States: No Known Family Hx - Social History Hx Tobacco Use: No Hx Alcohol Use: Yes Hx Substance Use: No - Immunization History Hx Tetanus Toxoid Vaccination: No Hx Influenza Vaccination: No Hx Pneumococcal Vaccination: No Review Of Systems Cardiovascular: Negative for: Chest Pain Respiratory: Negative for: Shortness of Breath Gastrointestinal: Negative for: Vomiting Psych: Negative for: Psychosis, Withdrawal Physical Exam - Physical Exam Appears: Non-toxic, No Acute Distress, Other (EtOH on breath) Skin: Normal Color, Warm, Dry, No Rash Head: Atraumatic, Normacephalic Eye(s): bilateral: Normal Inspection, PERRL, EOMI Nose: Normal Neck: Normal ROM Respiratory: No Accessory Muscle Use Gastrointestinal/Abdominal: Soft, No Tenderness Extremity: Normal ROM, No Deformity, No Swelling Neurological/Psych: Oriented x3, Normal Speech ED Course And Treatment O2 Sat by Pulse Oximetry: 98 (RA) Pulse Ox Interpretation: Normal Progress Note: Patient walked out of the ED after suggesting he should take a shower. Disposition - Disposition Disposition: ELOPEMENT - ER ONLY Disposition Time: 17:48 Condition: STABLE - Clinical Impression Clinical Impression: Alcohol abuse with intoxication - Scribe Statement The provider has reviewed the documentation as recorded by the Scribe (Erika Bañuelos) All medical record entries made by the Scribe were at my direction and personally dictated by me. I have reviewed the chart and agree that the record accurately reflects my personal performance of the history, physical exam, medical decision making, and the department course for this patient. I have also personally directed, reviewed, and agree with the discharge instructions and disposition.
== END 2017-10-29 17:36 | disposition left against medical advice (07) ==
LOC: C.ER 15:00
DX: F10.129 Alcohol abuse with intoxication, unspecified (principal); Y90.9 Presence of alcohol in blood, level not specified

== ENCOUNTER 2017-10-30 00:36 | Emergency (ER) | payer MEDICARE ==
[2017-10-30 00:37] VITALS: BMI 22.0
--- NOTE | 2017-10-30 00:45 | C.PDOC ---
History Of Present Illness Patient brought in via EMS after being found intoxicated in public. Denies physical complaints at this time. Time Seen by Provider: 10/30/17 00:44 Chief Complaint (Nursing): Substance Abuse History Per: Patient History/Exam Limitations: no limitations Onset/Duration Of Symptoms: Hrs Current Symptoms Are (Timing): Still Present Suicide/Self Injury Attempted (Context): None Modifying Factor(s): Alcohol Severity: None Pain Scale Rating Of: 0 Associated Symptoms: denies: Depression, Suicidal Thoughts Involuntary Hold By: None Recent travel outside of the [place]: No Past Medical History Reviewed: Historical Data, Nursing Documentation, Vital Signs Vital Signs: Last Vital Signs Temp 98.6 F 10/30/17 00:42 Pulse 77 10/30/17 00:42 Resp 16 10/30/17 00:42 BP 115/79 10/30/17 00:42 Pulse Ox 95 10/30/17 01:25 - Medical History PMH: Anxiety, Asthma, Back Problems, Bipolar Disorder, Depression, Gastritis, HTN, Schizophrenia, Chronic Pain (Back Pain) Surgical History: Hernia Repair, Tonsillectomy - [facility] Procedures DETOXIFICATION SERVICES FOR SUBSTANCE ABUSE TREATMENT (12/26/15) Family History: States: No Known Family Hx - Social History Hx Tobacco Use: No Hx Alcohol Use: Yes Hx Substance Use: No - Immunization History Hx Tetanus Toxoid Vaccination: No Hx Influenza Vaccination: No Hx Pneumococcal Vaccination: No Review Of Systems Constitutional: Negative for: Fever, Chills Cardiovascular: Negative for: Chest Pain, Palpitations Respiratory: Negative for: Cough, Shortness of Breath Gastrointestinal: Negative for: Nausea, Vomiting Physical Exam - Physical Exam Appears: Non-toxic, Other (ETOH on breath, no sign of injury) Skin: Warm, Dry Head: Normacephalic Oral Mucosa: Moist Chest: Symmetrical, No Tenderness Cardiovascular: Rhythm Regular Respiratory: No Rales, No Rhonchi, No Wheezing Gastrointestinal/Abdominal: Soft, No Tenderness Neurological/Psych: Oriented x3 ED Course And Treatment O2 Sat by Pulse Oximetry: 95 (room air) Pulse Ox Interpretation: Normal Reevaluation Time: 05:02 Reassessment Condition: Improved Disposition Counseled Patient/Family Regarding: Studies Performed, Diagnosis, Need For Followup - Disposition Referrals: [facility] [Outside] Disposition: HOME/ ROUTINE Disposition Time: 00:45 Condition: FAIR Instructions: Alcohol Abuse and Alcoholism (DC) Forms: [facility] (Nigerian) - Clinical Impression Clinical Impression: Alcoholism /alcohol abuse, Alcohol intoxication - Scribe Statement The provider has reviewed the documentation as recorded by the Scribe Chalino Huang All medical record entries made by the Scribe were at my direction and personally dictated by me. I have reviewed the chart and agree that the record accurately reflects my personal performance of the history, physical exam, medical decision making, and the department course for this patient. I have also personally directed, reviewed, and agree with the discharge instructions and disposition.
[2017-10-30 05:13] VITALS: BP 131/70; PULSE 89; RESP 20; TEMP 98; O2SAT 98
== END 2017-10-30 05:13 | disposition home or self-care (01) ==
LOC: C.ER 00:36
DX: F10.229 Alcohol dependence with intoxication, unspecified (principal); Y90.9 Presence of alcohol in blood, level not specified

== ENCOUNTER 2017-10-31 11:06 | Emergency (ER) | payer MEDICARE ==
[2017-10-31 11:07] VITALS: BMI 22.0
[2017-10-31 11:45] VITALS: BP 134/74; PULSE 72; RESP 16; TEMP 98.4; O2SAT 100
--- NOTE | 2017-10-31 13:39 | C.PDOC ---
History Of Present Illness 71yo male, brought to ER by EMS after he was found publicly intoxicated. Patient admits to alcohol use and at present has no medical complaints. Time Seen by Provider: 10/31/17 11:43 Chief Complaint (Nursing): Substance Abuse History Per: EMS History/Exam Limitations: no limitations Modifying Factor(s): Alcohol Past Medical History Reviewed: Historical Data, Nursing Documentation, Vital Signs Vital Signs: Last Vital Signs Temp 98.4 F 10/31/17 11:39 Pulse 72 10/31/17 11:39 Resp 16 10/31/17 11:39 BP 134/74 10/31/17 11:39 Pulse Ox 100 10/31/17 18:28 - Medical History PMH: Anxiety, Asthma, Back Problems, Bipolar Disorder, Depression, Gastritis, HTN, Schizophrenia, Chronic Pain (Back Pain) Denies: Chronic Kidney Disease Surgical History: Hernia Repair, Tonsillectomy - [facility] Procedures DETOXIFICATION SERVICES FOR SUBSTANCE ABUSE TREATMENT (12/26/15) Family History: States: No Known Family Hx - Social History Hx Tobacco Use: No Hx Alcohol Use: Yes Hx Substance Use: No - Immunization History Hx Tetanus Toxoid Vaccination: No Hx Influenza Vaccination: No Hx Pneumococcal Vaccination: No Review Of Systems Constitutional: Negative for: Fever, Chills Cardiovascular: Negative for: Chest Pain Respiratory: Negative for: Shortness of Breath Psych: Positive for: Other (alcohol use) Physical Exam - Physical Exam Appears: Non-toxic, No Acute Distress, Unkempt, Other (malodorous) Skin: Warm Head: Normacephalic Eye(s): bilateral: Normal Inspection Neck: Supple Chest: Symmetrical Cardiovascular: Rhythm Regular Respiratory: Normal Breath Sounds, No Wheezing Gastrointestinal/Abdominal: Soft, No Tenderness Extremity: Normal ROM Neurological/Psych: Oriented x3 Gait: Steady ED Course And Treatment O2 Sat by Pulse Oximetry: 100 (RA) Pulse Ox Interpretation: Normal Medical Decision Making Medical Decision Making: Impression: alcohol intoxication Plan: -- Patient to be observed in ER until clincally sober. On reevaluation, patient is awake, alert and oriented with steady gait. Stable for discharge home. pt declines taking showerl Disposition - Disposition Disposition: ELOPEMENT - ER ONLY Disposition Time: 13:25 Condition: STABLE Forms: [facility] (Swazi), General Discharge Instructions - Clinical Impression Clinical Impression: Homelessness, Alcohol abuse with intoxication - Scribe Statement The provider has reviewed the documentation as recorded by the Omar Ramsey Provider Attestation: All medical record entries made by the Omar were at my direction and personally dictated by me. I have reviewed the chart and agree that the record accurately reflects my personal performance of the history, physical exam, medical decision making, and the department course for this patient. I have also personally directed, reviewed, and agree with the discharge instructions and disposition.
== END 2017-10-31 13:29 | disposition left against medical advice (07) ==
LOC: C.ER 11:06
DX: F10.129 Alcohol abuse with intoxication, unspecified (principal); Y90.9 Presence of alcohol in blood, level not specified; Z59.0 Homelessness

== ENCOUNTER 2017-10-31 17:42 | Emergency (ER) | payer MEDICARE ==
[2017-10-31 17:42] VITALS: BMI 22.0
--- NOTE | 2017-10-31 18:08 | C.PDOC ---
History Of Present Illness 71 y/o male with history of ETOH abuse brought to ED by EMS for acute ETOH intoxication and found covered in feces outside. Patient has been seen at ED for similar complaints, denies SI/HI or any other physical complaints at this time. Time Seen by Provider: 10/31/17 18:08 Chief Complaint (Nursing): Substance Abuse History Per: Patient History/Exam Limitations: no limitations Onset/Duration Of Symptoms: Hrs Current Symptoms Are (Timing): Still Present Suicide/Self Injury Attempted (Context): None Modifying Factor(s): Alcohol Past Medical History Reviewed: Historical Data, Nursing Documentation, Vital Signs Vital Signs: Last Vital Signs Temp 98.6 F 10/31/17 18:50 Pulse 70 10/31/17 18:50 Resp 10 L 10/31/17 18:50 BP 147/65 10/31/17 18:50 Pulse Ox 100 11/01/17 00:36 - Medical History PMH: Anxiety, Asthma, Back Problems, Bipolar Disorder, Depression, Gastritis, HTN, Schizophrenia, Chronic Pain (Back Pain) Surgical History: Hernia Repair, Tonsillectomy - [facility] Procedures DETOXIFICATION SERVICES FOR SUBSTANCE ABUSE TREATMENT (12/26/15) Family History: States: No Known Family Hx - Social History Hx Tobacco Use: No Hx Alcohol Use: Yes Hx Substance Use: No - Immunization History Hx Tetanus Toxoid Vaccination: No Hx Influenza Vaccination: No Hx Pneumococcal Vaccination: No Review Of Systems Constitutional: Negative for: Fever, Chills Cardiovascular: Negative for: Chest Pain Respiratory: Negative for: Shortness of Breath Gastrointestinal: Negative for: Nausea, Vomiting Psych: Positive for: Other (ETOH intoxication) Physical Exam - Physical Exam Appears: Non-toxic, Other (Malodorous, poor hygiene) Skin: Warm, Dry, No Rash Head: Atraumatic, Normacephalic Eye(s): bilateral: Normal Inspection Oral Mucosa: Moist Neck: Normal ROM, Supple Cardiovascular: Rhythm Regular Respiratory: Normal Breath Sounds, No Rales, No Rhonchi, No Wheezing Gastrointestinal/Abdominal: Soft, No Tenderness, No Guarding, No Rebound Neurological/Psych: Oriented x3, Normal Speech, Normal Cognition, Other (Acute ETOH intoxication) ED Course And Treatment O2 Sat by Pulse Oximetry: 100 (RA) Pulse Ox Interpretation: Normal Medical Decision Making Medical Decision Making: Patient cannot be discharged secondary to Acute ETOH intoxication. Disposition - Disposition Disposition Time: 00:45 Condition: STABLE Forms: [facility] (Tanzanian) - Clinical Impression Clinical Impression: Alcohol abuse, Homelessness - Scribe Statement The provider has reviewed the documentation as recorded by the Scribe Avelino Jo All medical record entries made by the Augustaibe were at my direction and personally dictated by me. I have reviewed the chart and agree that the record accurately reflects my personal performance of the history, physical exam, medical decision making, and the department course for this patient. I have also personally directed, reviewed, and agree with the discharge instructions and disposition. Physician Patient Turnover Patient Signed Over To: Charlee Bullock Handoff Comments: FU SOBRIETY, DISPO
[2017-11-01 06:11] VITALS: BP 124/81; PULSE 86; RESP 16; TEMP 98.2; O2SAT 97
== END 2017-11-01 06:10 | disposition home or self-care (01) ==
LOC: C.ER 17:42
DX: F10.129 Alcohol abuse with intoxication, unspecified (principal); Y90.9 Presence of alcohol in blood, level not specified; Z59.0 Homelessness

== ENCOUNTER 2017-11-01 15:00 | Emergency (ER) | payer MEDICARE ==
[2017-11-01 15:01] VITALS: BMI 22.0
[2017-11-01 15:43] VITALS: RESP 20
--- NOTE | 2017-11-01 23:26 | C.PDOC ---
History Of Present Illness Pt was BIBEMS due to public alcohol intoxication. Time Seen by Provider: 11/01/17 15:24 Chief Complaint (Nursing): Substance Abuse History Per: Patient, EMS History/Exam Limitations: intoxication Onset/Duration Of Symptoms: Unknown Current Symptoms Are (Timing): Still Present Suicide/Self Injury Attempted (Context): None Modifying Factor(s): Alcohol Severity: Moderate Associated Symptoms: denies: Suicidal Thoughts, Suicidal Plan Additional History Per: Prior Records Past Medical History Reviewed: Historical Data, Nursing Documentation, Vital Signs Vital Signs: Last Vital Signs Temp 98.5 F 11/01/17 15:25 Pulse 88 11/01/17 18:07 Resp 20 11/01/17 18:07 BP 117/80 11/01/17 18:07 Pulse Ox 95 11/01/17 23:26 - Medical History PMH: Anxiety, Asthma, Back Problems, Bipolar Disorder, Depression, Gastritis, HTN, Schizophrenia, Chronic Pain (Back Pain) Other PMH: Alcohol abuse Surgical History: Hernia Repair, Tonsillectomy - [facility] Procedures DETOXIFICATION SERVICES FOR SUBSTANCE ABUSE TREATMENT (12/26/15) Family History: States: Unknown Family Hx - Social History Hx Tobacco Use: No Hx Alcohol Use: Yes Hx Substance Use: No - Immunization History Hx Tetanus Toxoid Vaccination: No Hx Influenza Vaccination: No Hx Pneumococcal Vaccination: No Review Of Systems Review Of Systems: ROS cannot be obtained secondary to pt's inabilty to answer questions. Physical Exam - Physical Exam Appears: No Acute Distress, Unkempt, Other (AOB, intoxicated) Skin: Normal Color, Warm, Dry Head: Atraumatic Eye(s): bilateral: PERRL Neck: Normal ROM, No Midline Cervical Tenderness, No Step Off Deformity, No Supple Chest: Symmetrical, No Deformity Cardiovascular: Rhythm Regular Respiratory: Normal Breath Sounds, No Accessory Muscle Use Gastrointestinal/Abdominal: Soft Extremity: Normal ROM, No Deformity Neurological/Psych: Eyes Open With Command, Other (Moving all extremities) Gait: Unable To Assess ED Course And Treatment O2 Sat by Pulse Oximetry: 95 Pulse Ox Interpretation: Normal Disposition - Disposition Disposition Time: 23:52 Condition: STABLE - Clinical Impression Clinical Impression: Alcohol abuse, Homelessness Physician Patient Turnover Patient Signed Over To: Jw Sauceda Handoff Comments: pending dispo once clinically sober.
[2017-11-02 03:43] VITALS: O2SAT 98
[2017-11-02 05:37] VITALS: BP 144/70; PULSE 83; TEMP 97.6
== END 2017-11-02 05:37 | disposition home or self-care (01) ==
LOC: C.ER 15:00
DX: F10.10 Alcohol abuse, uncomplicated (principal); Z59.0 Homelessness; I10 Essential (primary) hypertension; F20.9 Schizophrenia, unspecified

== ENCOUNTER 2017-11-02 20:10 | Emergency (ER) | payer MEDICARE ==
[2017-11-02 20:10] VITALS: BMI 22.0
--- NOTE | 2017-11-02 20:27 | C.PDOC ---
History Of Present Illness 71 year old male with prior history of substance abuse is brought to the ED by ambulance for evaluation of alcohol intoxication. Patient admits to drinking alcohol today. Patient has been seen in the ED multiple times in the ED for similar presentation. Patient denies SI/HI, hallucinations, SOB, CP. Time Seen by Provider: 11/02/17 20:16 Chief Complaint (Nursing): Substance Abuse History Per: Patient, EMS History/Exam Limitations: intoxication Onset/Duration Of Symptoms: Days Current Symptoms Are (Timing): Still Present Suicide/Self Injury Attempted (Context): None Modifying Factor(s): Alcohol Associated Symptoms: denies: Depression, Suicidal Thoughts, Suicidal Plan Recent travel outside of the [place]: No Additional History Per: Patient, EMS Past Medical History Reviewed: Historical Data, Nursing Documentation, Vital Signs Vital Signs: Last Vital Signs Temp 98.5 F 11/03/17 05:35 Pulse 79 11/03/17 05:35 Resp 20 11/03/17 05:35 BP 132/74 11/03/17 05:35 Pulse Ox 99 11/03/17 05:35 - Medical History PMH: Anxiety, Asthma, Back Problems, Bipolar Disorder, Depression, Gastritis, HTN, Schizophrenia, Chronic Pain (Back Pain) Denies: Chronic Kidney Disease Surgical History: Hernia Repair, Tonsillectomy - [facility] Procedures DETOXIFICATION SERVICES FOR SUBSTANCE ABUSE TREATMENT (12/26/15) Family History: States: Unknown Family Hx - Social History Hx Tobacco Use: No Hx Alcohol Use: Yes Hx Substance Use: No - Immunization History Hx Tetanus Toxoid Vaccination: No Hx Influenza Vaccination: No Hx Pneumococcal Vaccination: No Review Of Systems Except As Marked, All Systems Reviewed And Found Negative. Psych: Negative for: Depression, Suicidal ideation Physical Exam - Physical Exam Appears: Non-toxic, No Acute Distress, Unkempt Skin: Normal Color, Warm, Dry Head: Atraumatic, Normacephalic Eye(s): bilateral: Normal Inspection Oral Mucosa: Moist Neck: Normal ROM, Supple Chest: Symmetrical Cardiovascular: Rhythm Regular Respiratory: Normal Breath Sounds, No Rales, No Rhonchi, No Wheezing Gastrointestinal/Abdominal: Soft, No Tenderness, No Guarding, No Rebound Extremity: Normal ROM, No Tenderness, No Swelling Neurological/Psych: Oriented x3, Normal Speech Gait: Steady ED Course And Treatment O2 Sat by Pulse Oximetry: 98 (ON RA) Pulse Ox Interpretation: Normal Medical Decision Making Medical Decision Making: awake alert ambulatory steady gait. stable for dc. observed sleeping ininad. Disposition - Disposition Referrals: Non [facility] Provider, [Primary Care Provider] - Disposition: HOME/ ROUTINE Disposition Time: 05:00 Condition: STABLE Forms: [facility] (Nigerien) - Clinical Impression Clinical Impression: Homelessness, Alcohol abuse - Scribe Statement The provider has reviewed the documentation as recorded by the Scribe Eulogio Sanchez All medical record entries made by the Scribe were at my direction and personally dictated by me. I have reviewed the chart and agree that the record accurately reflects my personal performance of the history, physical exam, medical decision making, and the department course for this patient. I have also personally directed, reviewed, and agree with the discharge instructions and disposition.
[2017-11-02 23:42] VITALS: RESP 20
[2017-11-03 05:36] VITALS: BP 132/74; PULSE 79; TEMP 98.5
[2017-11-03 06:08] VITALS: O2SAT 98
== END 2017-11-03 05:36 | disposition home or self-care (01) ==
LOC: SUPCPDRO 20:10 → C.ER 20:10
DX: F10.129 Alcohol abuse with intoxication, unspecified (principal); Z59.0 Homelessness; F20.9 Schizophrenia, unspecified; I10 Essential (primary) hypertension

== ENCOUNTER 2017-11-05 12:04 | Emergency (ER) | payer MEDICARE ==
[2017-11-05 12:05] VITALS: BMI 22.0
--- NOTE | 2017-11-05 13:42 | C.PDOC ---
History Of Present Illness 71yo male, well known to ER provider and staff, brought to ER by EMS after he was found publicly intoxicated. Patient admits to alcohol use today. He denies any fever, chills, chest pain, shortness of breath, or abdominal pain. He has no medical complaints. Time Seen by Provider: 11/05/17 12:08 Chief Complaint (Nursing): Substance Abuse History Per: Patient History/Exam Limitations: no limitations Modifying Factor(s): Alcohol Past Medical History Reviewed: Historical Data, Nursing Documentation, Vital Signs Vital Signs: Last Vital Signs Temp 98.0 F 11/05/17 12:10 Pulse 78 11/05/17 15:28 Resp 20 11/05/17 15:28 BP 111/71 11/05/17 15:28 Pulse Ox 98 11/05/17 15:28 - Medical History PMH: Anxiety, Asthma, Back Problems, Bipolar Disorder, Depression, Gastritis, HTN, Schizophrenia, Chronic Pain (Back Pain) Denies: Chronic Kidney Disease Surgical History: Hernia Repair, Tonsillectomy - [facility] DETOXIFICATION SERVICES FOR SUBSTANCE ABUSE TREATMENT (12/26/15) Family History: States: Unknown Family Hx - Social History Hx Tobacco Use: No Hx Alcohol Use: Yes Hx Substance Use: No - Immunization History Hx Tetanus Toxoid Vaccination: No Hx Influenza Vaccination: No Hx Pneumococcal Vaccination: No Review Of Systems Except As Marked, All Systems Reviewed And Found Negative. Constitutional: Negative for: Fever, Chills Cardiovascular: Negative for: Chest Pain Respiratory: Negative for: Shortness of Breath Gastrointestinal: Negative for: Abdominal Pain Physical Exam - Physical Exam Appears: No Acute Distress Skin: Warm, Dry Head: Normacephalic Eye(s): bilateral: Normal Inspection Neck: Supple Chest: Symmetrical Cardiovascular: Rhythm Regular Respiratory: Normal Breath Sounds Gastrointestinal/Abdominal: Normal Exam, Soft, No Tenderness Extremity: Normal ROM Neurological/Psych: Oriented x3 ED Course And Treatment O2 Sat by Pulse Oximetry: 97 (RA) Pulse Ox Interpretation: Normal Medical Decision Making Medical Decision Making: Impression: Alcohol abuse Plan: -- Patient to be observed in ER until clinically sober -- Glucose, POC alcohol intoxication - patient reevaluated and ambulatory with steady gait. Will discharge home to follow up with medical clinic within 2 days Disposition Counseled Patient/Family Regarding: Studies Performed, Diagnosis, Need For Followup - Disposition Referrals: [facility] at [facility] [Outside] Disposition: HOME/ ROUTINE Disposition Time: 17:14 Condition: STABLE Additional Instructions: follow up with medical clinic within 2 days call to make an appointment decrease your alcohol use return to ER if symptoms worsens or progress Instructions: Alcohol Abuse and Alcoholism (DC) Forms: Gen Discharge Inst Moldovan, [facility] (Moldovan) - Clinical Impression Clinical Impression: Alcohol abuse with uncomplicated intoxication - Scribe Statement The provider has reviewed the documentation as recorded by the Omar Ramsey Provider Attestation: All medical record entries made by the Omar were at my direction and personally dictated by me. I have reviewed the chart and agree that the record accurately reflects my personal performance of the history, physical exam, medical decision making, and the department course for this patient. I have also personally directed, reviewed, and agree with the discharge instructions and disposition.
[2017-11-05 17:25] VITALS: BP 125/74; PULSE 82; RESP 12; TEMP 97.6; O2SAT 94
== END 2017-11-05 18:15 | disposition home or self-care (01) ==
LOC: C.ER 12:04
DX: F10.129 Alcohol abuse with intoxication, unspecified (principal); Y90.9 Presence of alcohol in blood, level not specified

== ENCOUNTER 2017-11-06 13:23 | Emergency (ER) | payer MEDICARE ==
[2017-11-06 13:32] VITALS: BMI 27.3
[2017-11-06 13:35] VITALS: BP 99/57; PULSE 73; RESP 19; TEMP 98.7; O2SAT 100
--- NOTE | 2017-11-06 13:53 | C.PDOC ---
History Of Present Illness 71yo male, well known to ER provider and staff, brought to ER by EMS after he was found publicly intoxicated. Patient admits to alcohol use today. He denies any fever, chills, chest pain, shortness of breath, or abdominal pain. He has no medical complaints. Time Seen by Provider: 11/06/17 13:25 Chief Complaint (Nursing): Substance Abuse History Per: EMS History/Exam Limitations: no limitations Modifying Factor(s): Alcohol Past Medical History Reviewed: Historical Data, Nursing Documentation, Vital Signs Vital Signs: Last Vital Signs Temp 98.7 F 11/06/17 13:32 Pulse 73 11/06/17 13:32 Resp 19 11/06/17 13:32 BP 99/57 L 11/06/17 13:32 Pulse Ox 100 11/06/17 13:54 - Medical History PMH: Anxiety, Asthma, Back Problems, Bipolar Disorder, Depression, Gastritis, HTN, Schizophrenia, Chronic Pain (Back Pain) Denies: Chronic Kidney Disease Surgical History: Hernia Repair, Tonsillectomy - [facility] DETOXIFICATION SERVICES FOR SUBSTANCE ABUSE TREATMENT (12/26/15) Family History: States: Unknown Family Hx - Social History Hx Tobacco Use: No Hx Alcohol Use: Yes Hx Substance Use: No - Immunization History Hx Tetanus Toxoid Vaccination: No Hx Influenza Vaccination: No Hx Pneumococcal Vaccination: No Review Of Systems Except As Marked, All Systems Reviewed And Found Negative. Constitutional: Negative for: Fever, Chills Cardiovascular: Negative for: Chest Pain Respiratory: Negative for: Shortness of Breath Gastrointestinal: Negative for: Abdominal Pain Physical Exam - Physical Exam Appears: No Acute Distress Skin: Normal Color Head: Normacephalic Eye(s): bilateral: Normal Inspection Neck: Supple Chest: Symmetrical Cardiovascular: Rhythm Regular Respiratory: Normal Breath Sounds Neurological/Psych: Oriented x3 Gait: Steady ED Course And Treatment O2 Sat by Pulse Oximetry: 100 (RA) Pulse Ox Interpretation: Normal Medical Decision Making Medical Decision Making: Assessment: Alcohol intoxication Plan: -- Patient to be observed in ER until clinical sobriety Disposition Counseled Patient/Family Regarding: Studies Performed, Diagnosis - Disposition Referrals: [facility] at [facility] [Outside] Disposition: HOME/ ROUTINE Disposition Time: 16:36 Condition: STABLE Additional Instructions: follow up with medical clinic within 2 days call to make an appointment take medications as prescribed return to ER if symptoms worsens or progress Instructions: Alcohol Abuse and Alcoholism (DC) Forms: [facility] (Urdu), General Discharge Instructions - Clinical Impression Clinical Impression: Alcohol abuse with intoxication - Scribe Statement The provider has reviewed the documentation as recorded by the Omar Ramsey Provider Attestation: All medical record entries made by the Omar were at my direction and personally dictated by me. I have reviewed the chart and agree that the record accurately reflects my personal performance of the history, physical exam, medical decision making, and the department course for this patient. I have also personally directed, reviewed, and agree with the discharge instructions and disposition.
== END 2017-11-06 17:01 | disposition home or self-care (01) ==
LOC: C.ER 13:23
DX: F10.129 Alcohol abuse with intoxication, unspecified (principal)

== ENCOUNTER 2017-11-07 14:12 | Emergency (ER) | payer MEDICARE ==
[2017-11-07 14:14] VITALS: BMI 27.3
[2017-11-07 14:33] VITALS: TEMP 97.6
[2017-11-08 00:06] VITALS: BP 178/75; PULSE 65; RESP 12; O2SAT 95
--- NOTE | 2017-11-08 00:47 | C.PDOC ---
History Of Present Illness Pt was BIBEMS due to public alcohol intoxication. Time Seen by Provider: 11/07/17 14:38 Chief Complaint (Nursing): Substance Abuse History Per: Patient, EMS History/Exam Limitations: intoxication Onset/Duration Of Symptoms: Unknown Current Symptoms Are (Timing): Still Present Suicide/Self Injury Attempted (Context): None Modifying Factor(s): Alcohol Severity: Severe Associated Symptoms: denies: Suicidal Thoughts, Suicidal Plan Additional History Per: Prior Records Past Medical History Reviewed: Historical Data, Nursing Documentation, Vital Signs Vital Signs: Last Vital Signs Temp 97.6 F 11/07/17 18:55 Pulse 65 11/08/17 00:05 Resp 12 11/08/17 00:05 BP 178/75 H 11/08/17 00:05 Pulse Ox 95 11/08/17 00:05 - Medical History PMH: Anxiety, Asthma, Back Problems, Bipolar Disorder, Depression, Gastritis, HTN, Schizophrenia, Chronic Pain (Back Pain) Other PMH: Alcohol abuse Surgical History: Hernia Repair, Tonsillectomy - [facility] Procedures DETOXIFICATION SERVICES FOR SUBSTANCE ABUSE TREATMENT (12/26/15) Family History: States: Unknown Family Hx - Social History Hx Tobacco Use: No Hx Alcohol Use: Yes Hx Substance Use: No - Immunization History Hx Tetanus Toxoid Vaccination: No Hx Influenza Vaccination: No Hx Pneumococcal Vaccination: No Review Of Systems Review Of Systems: ROS cannot be obtained secondary to pt's inabilty to answer questions. Physical Exam - Physical Exam Appears: No Acute Distress, Unkempt, Other (AOB, intoxicated) Skin: Normal Color, Warm, Dry Head: Atraumatic Eye(s): bilateral: PERRL Neck: Normal ROM, No Midline Cervical Tenderness, No Step Off Deformity, Supple Cardiovascular: Rhythm Regular Respiratory: Normal Breath Sounds, No Accessory Muscle Use Gastrointestinal/Abdominal: Soft Extremity: Normal ROM, No Deformity Neurological/Psych: Eyes Open With Command, Other (Moving all extremities) Gait: Unable To Assess ED Course And Treatment O2 Sat by Pulse Oximetry: 95 Pulse Ox Interpretation: Normal Disposition - Disposition Disposition Time: 00:48 Condition: STABLE - Clinical Impression Clinical Impression: Alcohol abuse, Homelessness Physician Patient Turnover Patient Signed Over To: Cleve Cho Handoff Comments: to reassess/dispo pt once sober.
== END 2017-11-08 05:21 | disposition home or self-care (01) ==
LOC: C.ER 14:12
DX: F10.129 Alcohol abuse with intoxication, unspecified (principal); Y90.9 Presence of alcohol in blood, level not specified; Z59.0 Homelessness

== ENCOUNTER → 2017-11-08 | Emergency (ER) | payer MEDICARE ==
[2017-11-08 13:04] VITALS: BMI 25.1
[2017-11-08 13:05] VITALS: BP 101/65; PULSE 86; RESP 18; TEMP 98.9; O2SAT 100
--- NOTE | 2017-11-08 13:26 | C.PDOC ---
History Of Present Illness 71 year old male presents to the ED BIBA for substance abuse. Patient denies any SI/HI, shortness of breath, chest pain, or any withdrawal symptoms. Time Seen by Provider: 11/08/17 13:07 Chief Complaint (Nursing): Substance Abuse History Per: Patient History/Exam Limitations: no limitations Onset/Duration Of Symptoms: Hrs Current Symptoms Are (Timing): Still Present Suicide/Self Injury Attempted (Context): None Modifying Factor(s): Alcohol Associated Symptoms: denies: Suicidal Thoughts Past Medical History Reviewed: Historical Data, Nursing Documentation, Vital Signs Vital Signs: Last Vital Signs Temp 98.9 F 11/08/17 13:03 Pulse 86 11/08/17 13:03 Resp 18 11/08/17 13:03 BP 101/65 11/08/17 13:03 Pulse Ox 100 11/08/17 13:40 - Medical History PMH: Anxiety, Asthma, Back Problems, Bipolar Disorder, Depression, Gastritis, HTN, Schizophrenia, Chronic Pain (Back Pain) Denies: Chronic Kidney Disease Surgical History: Hernia Repair, Tonsillectomy - [facility] Procedures DETOXIFICATION SERVICES FOR SUBSTANCE ABUSE TREATMENT (12/26/15) Family History: States: No Known Family Hx - Social History Hx Tobacco Use: No Hx Alcohol Use: Yes Hx Substance Use: No - Immunization History Hx Tetanus Toxoid Vaccination: No Hx Influenza Vaccination: No Hx Pneumococcal Vaccination: No Review Of Systems Constitutional: Positive for: Other (Intoxicated ) Cardiovascular: Negative for: Chest Pain Respiratory: Negative for: Shortness of Breath Psych: Negative for: Suicidal ideation Physical Exam - Physical Exam Appears: Non-toxic Skin: Normal Color, Warm, Dry Head: Atraumatic Eye(s): bilateral: Normal Inspection Nose: Normal Oral Mucosa: Moist Neck: Supple Chest: Symmetrical Cardiovascular: Rhythm Regular Respiratory: Normal Breath Sounds, No Rales, No Rhonchi, No Wheezing Extremity: Normal ROM Neurological/Psych: Oriented x3, Normal Speech ED Course And Treatment O2 Sat by Pulse Oximetry: 100 Disposition - Disposition Disposition: ELOPEMENT - ER ONLY Disposition Time: 13:30 Condition: STABLE - Clinical Impression Clinical Impression: Alcohol intoxication - Scribe Statement The provider has reviewed the documentation as recorded by the Scribe Elsa Dixon All medical record entries made by the Scribe were at my direction and personally dictated by me. I have reviewed the chart and agree that the record accurately reflects my personal performance of the history, physical exam, medical decision making, and the department course for this patient. I have also personally directed, reviewed, and agree with the discharge instructions and disposition.
== END | disposition left against medical advice (07) ==
LOC: C.ER 13:01
DX: F10.129 Alcohol abuse with intoxication, unspecified (principal)

== ENCOUNTER 2017-11-11 15:57 | Emergency (ER) | payer MEDICARE ==
[2017-11-11 15:57] VITALS: BMI 25.1
--- NOTE | 2017-11-11 17:26 | C.PDOC ---
History Of Present Illness 71 year old male is brought to the ED by EMS for evaluation after he was found publicly intoxicated prior to arrival. Patient is familiar to this ED and has had many prior visits with similar presentations. Patient admits to drinking earlier today. He denies any new injuries and has no physical complaints at this time. Time Seen by Provider: 11/11/17 16:23 Chief Complaint (Nursing): Substance Abuse History Per: Patient, EMS History/Exam Limitations: intoxication Onset/Duration Of Symptoms: Hrs Current Symptoms Are (Timing): Still Present Suicide/Self Injury Attempted (Context): None Modifying Factor(s): Alcohol Associated Symptoms: denies: Suicidal Thoughts, Suicidal Plan Involuntary Hold By: None Recent travel outside of the [place]: No Additional History Per: Patient Past Medical History Reviewed: Historical Data, Nursing Documentation, Vital Signs Vital Signs: Last Vital Signs Temp 98.7 F 11/11/17 16:00 Pulse 92 H 11/11/17 16:00 Resp 20 11/11/17 16:00 BP 99/63 L 11/11/17 16:00 Pulse Ox 99 11/11/17 17:32 - Medical History PMH: Anxiety, Asthma, Back Problems, Bipolar Disorder, Depression, Gastritis, HTN, Schizophrenia, Chronic Pain (Back Pain) Denies: Chronic Kidney Disease Surgical History: Hernia Repair, Tonsillectomy - [facility] Procedures DETOXIFICATION SERVICES FOR SUBSTANCE ABUSE TREATMENT (12/26/15) Family History: States: Unknown Family Hx - Social History Hx Tobacco Use: No Hx Alcohol Use: Yes Hx Substance Use: No - Immunization History Hx Tetanus Toxoid Vaccination: No Hx Influenza Vaccination: No Hx Pneumococcal Vaccination: No Review Of Systems Psych: Positive for: Other (EtOH intoxication ). Negative for: Suicidal ideation Physical Exam - Physical Exam Appears: Non-toxic, No Acute Distress, Other (visibly intoxicated ) Skin: Normal Color, Warm, Dry Head: Atraumatic, Normacephalic Eye(s): bilateral: Normal Inspection Oral Mucosa: Moist, Other (alcohol on breath ) Neck: Supple Chest: Symmetrical, No Deformity, No Tenderness Cardiovascular: Rhythm Regular Respiratory: Normal Breath Sounds, No Accessory Muscle Use Gastrointestinal/Abdominal: Soft, No Tenderness Extremity: Normal ROM Neurological/Psych: Other (arousable to touch and verbal stimuli ) ED Course And Treatment O2 Sat by Pulse Oximetry: 99 (on RA) Pulse Ox Interpretation: Normal Medical Decision Making Medical Decision Making: Assessment: 71 year old male with alcohol intoxication Progress: labs ordered and reviewed. 1830 - patient remained comfortable during hospital course. No complaints. He is ambulatory without difficulty. Will discharge home to follow up with pmd in 2 days Disposition Counseled Patient/Family Regarding: Studies Performed, Diagnosis, Need For Followup - Disposition Referrals: [facility] at [facility] [Outside] Disposition: HOME/ ROUTINE Disposition Time: 18:30 Condition: STABLE Additional Instructions: follow up with medical clinic within 2 days decrease alcohol use return to ER if symptoms worsens or progress Instructions: Alcohol Abuse and Alcoholism (DC) Forms: [facility] (French), General Discharge Instructions - Clinical Impression Clinical Impression: Alcohol abuse with uncomplicated intoxication - Scribe Statement The provider has reviewed the documentation as recorded by the Scribe (Chrissy Leiva) Provider Attestation: All medical record entries made by the Scribe were at my direction and personally dictated by me. I have reviewed the chart and agree that the record accurately reflects my personal performance of the history, physical exam, medical decision making, and the department course for this patient. I have also personally directed, reviewed, and agree with the discharge instructions and disposition.
[2017-11-11 19:18] VITALS: BP 120/77; PULSE 84; RESP 16; TEMP 99.2; O2SAT 97
== END 2017-11-11 19:07 | disposition home or self-care (01) ==
LOC: C.ER 15:57
DX: F10.120 Alcohol abuse with intoxication, uncomplicated (principal); Y90.9 Presence of alcohol in blood, level not specified

== ENCOUNTER 2017-11-14 17:14 | Emergency (ER) | payer MEDICARE ==
[2017-11-14 17:25] VITALS: BMI 30.4
--- NOTE | 2017-11-15 00:04 | C.PDOC ---
Time Seen by Provider: 11/14/17 17:27 Chief Complaint (Nursing): Substance Abuse History Per: Patient, EMS Onset/Duration Of Symptoms: Unknown Current Symptoms Are (Timing): Still Present Suicide/Self Injury Attempted (Context): None Modifying Factor(s): Alcohol Severity: Moderate Associated Symptoms: denies: Suicidal Thoughts, Suicidal Plan Additional History Per: Prior Records Past Medical History Reviewed: Historical Data, Nursing Documentation, Vital Signs Vital Signs: Last Vital Signs Temp 97.1 F L 11/15/17 00:58 Pulse 89 11/15/17 00:58 Resp 20 11/15/17 00:58 BP 147/86 11/15/17 00:58 Pulse Ox 96 11/15/17 00:58 - Medical History PMH: Anxiety, Asthma, Back Problems, Bipolar Disorder, Depression, Gastritis, HTN, Schizophrenia, Chronic Pain (Back Pain) Surgical History: Hernia Repair, Tonsillectomy - [facility] DETOXIFICATION SERVICES FOR SUBSTANCE ABUSE TREATMENT (12/26/15) Family History: States: Unknown Family Hx - Social History Hx Tobacco Use: No Hx Alcohol Use: Yes Hx Substance Use: No - Immunization History Hx Tetanus Toxoid Vaccination: No Hx Influenza Vaccination: No Hx Pneumococcal Vaccination: No Review Of Systems Constitutional: Negative for: Fever Cardiovascular: Negative for: Chest Pain Respiratory: Negative for: Shortness of Breath Gastrointestinal: Negative for: Vomiting, Abdominal Pain Musculoskeletal: Negative for: Neck Pain Neurological: Negative for: Weakness, Seizures, Headache Physical Exam - Physical Exam Appears: Non-toxic, No Acute Distress, Unkempt Skin: Normal Color, Warm Head: Atraumatic Eye(s): bilateral: PERRL, EOMI Neck: Normal ROM, No Midline Cervical Tenderness, No Step Off Deformity, Supple Chest: Symmetrical, No Deformity Cardiovascular: Rhythm Regular Respiratory: Normal Breath Sounds, No Accessory Muscle Use Gastrointestinal/Abdominal: Soft, No Tenderness Extremity: Normal ROM, No Deformity Neurological/Psych: Oriented x3, Normal Motor ED Course And Treatment O2 Sat by Pulse Oximetry: 97 Pulse Ox Interpretation: Normal Disposition - Disposition Disposition Time: 01:00 Condition: STABLE Forms: [facility] (Serbian) - Clinical Impression Clinical Impression: Homelessness, Alcohol abuse Physician Patient Turnover Patient Signed Over To: Jb Riddle Handoff Comments: to reassess/dispo pt in AM.
[2017-11-15 00:58] VITALS: RESP 20
[2017-11-15 01:13] VITALS: O2SAT 97
[2017-11-15 06:20] VITALS: BP 136/78; PULSE 82; TEMP 98
== END 2017-11-15 06:17 | disposition home or self-care (01) ==
LOC: C.ER 17:14
DX: F10.129 Alcohol abuse with intoxication, unspecified (principal); Z59.0 Homelessness

== ENCOUNTER 2017-11-15 16:34 | Emergency (ER) | payer MEDICARE ==
[2017-11-15 16:34] VITALS: BMI 30.4
[2017-11-15 16:42] VITALS: RESP 18; O2SAT 95
[2017-11-15] MEDS ORDERED: Sodium Chloride 0.9% 1,000 ML IV ONE (16:55)
[2017-11-15 17:31] LABS: BASO # 0.1 K/uL (0.0-0.2); BASO % 0.9 % (0.0-2.0); EOS # 0.1 K/uL (0.0-0.7); HEMOGLOBIN 11.9 g/dL (12.0-18.0); LYMPH # 1.5 K/uL (1.0-4.3); LYMPH % 25.8 % (20.0-40.0); MEAN CELL VOLUME 101.4 fL (80.0-94.0); MEAN CORPUSCULAR HEMOGLOBIN 33.4 pg (27.0-31.0); MEAN CORPUSCULAR HGB CONC 32.9 g/dL (33.0-37.0); MONO # 0.6 K/uL (0.0-0.8); MONO % 9.5 % (0.0-10.0); NEUT # 3.6 K/uL (1.8-7.0); NEUT % 61.8 % (50.0-75.0); NRBC % 0.1 % (0.0-2.0); RBC 3.58 Mil/uL (4.40-5.90); RED CELL DISTRIBUTION WIDTH 16.9 % (11.5-14.5); WHITE BLOOD COUNT 5.8 K/uL (4.8-10.8)
--- NOTE | 2017-11-15 17:33 | C.PDOC ---
History Of Present Illness 71 y/o male presents to ED c/o generalized weakness since yesterday. He states he has not drank any fluids since yesterday. Pt is well known to ED staff for multiple prior visits for alcohol intoxication. Denies alcohol use today. No other complaints. Time Seen by Provider: 11/15/17 16:55 Chief Complaint (Nursing): Substance Abuse History Per: Patient History/Exam Limitations: no limitations Past Medical History Reviewed: Historical Data, Nursing Documentation, Vital Signs Vital Signs: Last Vital Signs Temp 98 F 11/15/17 20:52 Pulse 99 H 11/15/17 20:52 Resp 18 11/15/17 20:52 BP 109/74 11/15/17 20:52 Pulse Ox 95 11/15/17 18:30 - Medical History PMH: Anxiety, Asthma, Back Problems, Bipolar Disorder, Depression, Gastritis, HTN, Schizophrenia, Chronic Pain (Back Pain) Denies: Chronic Kidney Disease Surgical History: Hernia Repair, Tonsillectomy - [facility] Procedures DETOXIFICATION SERVICES FOR SUBSTANCE ABUSE TREATMENT (12/26/15) Family History: States: Unknown Family Hx - Social History Hx Tobacco Use: No Hx Alcohol Use: Yes Hx Substance Use: No - Immunization History Hx Tetanus Toxoid Vaccination: No Hx Influenza Vaccination: No Hx Pneumococcal Vaccination: No Review Of Systems Except As Marked, All Systems Reviewed And Found Negative. Constitutional: Positive for: Weakness. Negative for: Fever, Chills Cardiovascular: Negative for: Chest Pain Respiratory: Negative for: Shortness of Breath Physical Exam - Physical Exam Appears: Non-toxic, No Acute Distress, Unkempt (foul-smelling) Skin: Normal Color, Warm, Dry, Other (normal skin turgor) Head: Atraumatic, Normacephalic Eye(s): bilateral: Normal Inspection Oral Mucosa: Moist Neck: Supple Cardiovascular: Rhythm Regular Respiratory: Normal Breath Sounds, No Rales, No Rhonchi, No Wheezing Gastrointestinal/Abdominal: Soft, No Tenderness Extremity: Normal ROM Neurological/Psych: Oriented x3, Normal Speech ED Course And Treatment - Laboratory Results Result Diagrams: 11/15/17 17:28 11/15/17 17:28 Lab Interpretation: Abnormal (etoh 277 H) ECG: Interpreted By Me ECG Rhythm: Sinus Tachycardia ECG Interpretation: Normal Rate From EC O2 Sat by Pulse Oximetry: 95 Pulse Ox Interpretation: Normal - Radiology CXR: Interpreted by Me CXR Interpretation: Yes: No Acute Disease Reevaluation Time: 21:33 Reassessment Condition: Improved Medical Decision Making Medical Decision Making: Plan: Blood work Urinalysis CXR EKG IV fluids Reassess persistent alcohol abuse dehydration improved with agressive IV and PO fluid challenge stable for d/c. Disposition Doctor Will See Patient In The: Office Counseled Patient/Family Regarding: Studies Performed, Diagnosis - Disposition Disposition: HOME/ ROUTINE Disposition Time: 21:34 Condition: GOOD Forms: [employer] (Mongolian) - Clinical Impression Clinical Impression: Alcohol abuse, Dehydration - Scribe Statement The provider has reviewed the documentation as recorded by the Scribe KP All medical record entries made by the Scribe were at my direction and personally dictated by me. I have reviewed the chart and agree that the record accurately reflects my personal performance of the history, physical exam, medical decision making, and the department course for this patient. I have also personally directed, reviewed, and agree with the discharge instructions and disposition.
[2017-11-15 17:43] LABS: ALB/GLOB RATIO 1.3 (1.0-2.1); ALBUMIN 3.8 g/dL (3.5-5.0); ALT/SGPT 29 U/L (21-72); AST/SGOT 52 U/L (17-59); BLOOD UREA NITROGEN 16 mg/dL (9-20); CALCIUM 8.8 mg/dl (8.6-10.4); GFR AFRICAN-AMERICAN > 60; GFR NON-AFRICAN AMERICAN > 60
--- NOTE | 2017-11-15 18:19 | RAD ---
Date of service: 11/15/2017 PROCEDURE: CHEST RADIOGRAPH, 1 VIEW HISTORY: SOB COMPARISON: Comparison is made with 09/20/2019 1017 FINDINGS: LUNGS: Clear. PLEURA: No pneumothorax or pleural fluid seen. CARDIOVASCULAR: Normal. OSSEOUS STRUCTURES: No significant abnormalities. VISUALIZED UPPER ABDOMEN: Normal. OTHER FINDINGS: None. IMPRESSION: No active disease.
[2017-11-15] MEDS ORDERED: Sodium Chloride 0.45% 1,000 ML IV STA (18:36)
[2017-11-15 20:53] VITALS: BP 109/74; PULSE 99; TEMP 98
--- NOTE | 2017-11-18 15:03 | CARD ---
APPROVED REPORT Date of service: 11/15/2017 EKG Measurement Heart [id number] <Conclusion> Sinus tachycardia Septal infarct, age undetermined Possible Inferior infarct, age undetermined Abnormal ECG
== END 2017-11-15 21:57 | disposition home or self-care (01) ==
LOC: C.ER 16:34
DX: F10.129 Alcohol abuse with intoxication, unspecified (principal); Y90.8 Blood alcohol level of 240 mg/100 ml or more; E86.0 Dehydration
CPT/HCPCS: 71045; 80053; 84484; 85025; 93005; 96360; 99283; G0480; J7030

== ENCOUNTER 2017-11-20 19:43 | Emergency (ER) | payer MEDICARE ==
[2017-11-20 19:43] VITALS: BMI 30.4
[2017-11-20 20:08] VITALS: RESP 20
--- NOTE | 2017-11-20 20:58 | C.PDOC ---
History Of Present Illness 71 year old male with PMHx alcohol abuse is brought to the ED by EMS for alcohol intoxication. Patient states he drank alcohol today and needs a place to rest. Patient has multiple prior visits to the ED for similar. Patient denies SI/HI, hallucinations, CP, SOB, trauma. Time Seen by Provider: 11/20/17 20:41 Chief Complaint (Nursing): Substance Abuse History Per: Patient, EMS History/Exam Limitations: no limitations, intoxication Onset/Duration Of Symptoms: Hrs Current Symptoms Are (Timing): Still Present Suicide/Self Injury Attempted (Context): None Modifying Factor(s): Alcohol Associated Symptoms: denies: Depression, Suicidal Thoughts, Suicidal Plan Recent travel outside of the [place]: No Additional History Per: Patient, EMS Past Medical History Reviewed: Historical Data, Nursing Documentation, Vital Signs Vital Signs: Last Vital Signs Temp 97.8 F 11/21/17 03:31 Pulse 80 11/21/17 03:31 Resp 20 11/21/17 03:31 BP 130/70 11/21/17 03:31 Pulse Ox 97 11/21/17 03:31 - Medical History PMH: Anxiety, Asthma, Back Problems, Bipolar Disorder, Depression, Gastritis, HTN, Schizophrenia, Chronic Pain (Back Pain) Denies: Chronic Kidney Disease Surgical History: Hernia Repair, Tonsillectomy - [facility] Procedures DETOXIFICATION SERVICES FOR SUBSTANCE ABUSE TREATMENT (12/26/15) Family History: States: Unknown Family Hx - Social History Hx Tobacco Use: No Hx Alcohol Use: Yes Hx Substance Use: No - Immunization History Hx Tetanus Toxoid Vaccination: No Hx Influenza Vaccination: No Hx Pneumococcal Vaccination: No Review Of Systems Constitutional: Negative for: Fever, Chills Cardiovascular: Negative for: Chest Pain, Palpitations Respiratory: Negative for: Cough, Shortness of Breath Gastrointestinal: Negative for: Nausea, Vomiting, Abdominal Pain Skin: Negative for: Rash Psych: Negative for: Depression, Suicidal ideation Physical Exam - Physical Exam Appears: Non-toxic, No Acute Distress, Other (intoxicated, AOB) Skin: Normal Color, Warm, Dry Head: Atraumatic, Normacephalic Eye(s): bilateral: Normal Inspection Neck: Normal ROM, Supple Chest: Symmetrical Cardiovascular: Rhythm Regular Respiratory: Normal Breath Sounds, No Rales, No Rhonchi, No Wheezing Gastrointestinal/Abdominal: Soft, No Tenderness, No Guarding, No Rebound Extremity: Normal ROM, No Tenderness, No Swelling Neurological/Psych: Oriented x3, Normal Speech Gait: Steady ED Course And Treatment O2 Sat by Pulse Oximetry: 97 (ON RA) Pulse Ox Interpretation: Normal Reevaluation Time: 05:30 Reassessment Condition: Improved (PT CLEAR SPEECH AND THOUGHT, STEADY GAIT. AO3 , NO S/S ACUTE INTOX.) Medical Decision Making Medical Decision Making: Impression: alcohol abuse Plan: * Observe until clinically sober Disposition Counseled Patient/Family Regarding: Diagnosis, Need For Followup - Disposition Disposition: HOME/ ROUTINE Disposition Time: 04:53 Condition: IMPROVED Instructions: Alcohol Abuse and Alcoholism (DC) Forms: [employer] (Slovenian) - Clinical Impression Clinical Impression: Alcohol intoxication - Scribe Statement The provider has reviewed the documentation as recorded by the Scribe Eulogio Sanchez All medical record entries made by the Scribe were at my direction and personally dictated by me. I have reviewed the chart and agree that the record accurately reflects my personal performance of the history, physical exam, medical decision making, and the department course for this patient. I have also personally directed, reviewed, and agree with the discharge instructions and disposition.
[2017-11-21 03:32] VITALS: TEMP 97.8
[2017-11-21 05:08] VITALS: BP 131/70; PULSE 92; O2SAT 98
== END 2017-11-21 05:08 | disposition home or self-care (01) ==
LOC: C.ER 19:43
DX: F10.129 Alcohol abuse with intoxication, unspecified (principal); Y90.9 Presence of alcohol in blood, level not specified

== ENCOUNTER 2017-11-21 13:55 | Emergency (ER) | payer MEDICARE ==
[2017-11-21 13:55] VITALS: BMI 30.4
[2017-11-21 14:06] VITALS: BP 105/69; PULSE 87; RESP 14; TEMP 98.2; O2SAT 98
--- NOTE | 2017-11-21 14:41 | C.PDOC ---
History Of Present Illness 71 y/o M well known to this ED for alcoholism p/w alcohol intoxication. Patient is intoxicated but arousable, denies trauma. Full HPI/ROS unobtainable due to patient's intoxication. Time Seen by Provider: 11/21/17 13:58 Chief Complaint (Nursing): Substance Abuse Past Medical History Vital Signs: Last Vital Signs Temp 98.2 F 11/21/17 13:59 Pulse 87 11/21/17 13:59 Resp 14 11/21/17 13:59 BP 105/69 11/21/17 13:59 Pulse Ox 98 11/21/17 13:59 - Medical History PMH: Anxiety, Asthma, Back Problems, Bipolar Disorder, Depression, Gastritis, HTN, Schizophrenia, Chronic Pain (Back Pain) Denies: Chronic Kidney Disease Surgical History: Hernia Repair, Tonsillectomy - [facility] Procedures DETOXIFICATION SERVICES FOR SUBSTANCE ABUSE TREATMENT (12/26/15) Family History: States: Unknown Family Hx - Social History Hx Tobacco Use: No Hx Alcohol Use: Yes Hx Substance Use: No - Immunization History Hx Tetanus Toxoid Vaccination: No Hx Influenza Vaccination: No Hx Pneumococcal Vaccination: No Review Of Systems Review Of Systems: ROS cannot be obtained secondary to pt's inabilty to answer questions. Physical Exam - Physical Exam Additional Physical Exam Comments: Gen: Disheveled Head: NC/AT Eyes: PERRL ENT: MMM Neck: Supple. No midline tenderness. Chest: No tenderness CV: Regular rate Lungs: CTA b/l Abd: Soft, NT Back: No CVA or midline tenderness Extremities: No edema or tenderness Skin: No rash Neuro: Awake. Intoxicated. ED Course And Treatment O2 Sat by Pulse Oximetry: 98 Medical Decision Making Medical Decision Making: Will discharge from ED when sober. Disposition - Disposition Disposition: HOME/ ROUTINE Disposition Time: 14:40 Condition: STABLE Instructions: Alcohol Abuse and Alcoholism (DC) - Clinical Impression Clinical Impression: Intoxication
== END 2017-11-21 14:58 | disposition home or self-care (01) ==
LOC: C.ER 13:55
DX: F10.129 Alcohol abuse with intoxication, unspecified (principal)

== ENCOUNTER 2017-11-21 21:25 | Emergency (ER) | payer MEDICARE ==
[2017-11-21 21:25] VITALS: BMI 30.4
--- NOTE | 2017-11-21 21:49 | C.PDOC ---
History Of Present Illness 71 year old male brought in by EMS for public malingering. Denies complaints at this time. Time Seen by Provider: 11/21/17 21:47 History Per: Patient, EMS History/Exam Limitations: no limitations Suicide/Self Injury Attempted (Context): None Modifying Factor(s): None Associated Symptoms: denies: Depression, Suicidal Thoughts Involuntary Hold By: None Recent travel outside of the [place]: No Past Medical History Reviewed: Historical Data, Nursing Documentation, Vital Signs - Medical History PMH: Anxiety, Asthma, Back Problems, Bipolar Disorder, Depression, Gastritis, HTN, Schizophrenia, Chronic Pain (Back Pain) Denies: Chronic Kidney Disease Surgical History: Hernia Repair, Tonsillectomy - [facility] Procedures DETOXIFICATION SERVICES FOR SUBSTANCE ABUSE TREATMENT (12/26/15) Family History: States: Unknown Family Hx - Social History Hx Tobacco Use: No Hx Alcohol Use: Yes Hx Substance Use: No - Immunization History Hx Tetanus Toxoid Vaccination: No Hx Influenza Vaccination: No Hx Pneumococcal Vaccination: No Review Of Systems Constitutional: Negative for: Fever, Chills Cardiovascular: Negative for: Chest Pain, Palpitations Respiratory: Negative for: Cough, Shortness of Breath Gastrointestinal: Negative for: Nausea, Vomiting Physical Exam - Physical Exam Appears: Non-toxic, Other (Easily arousable, foul smelling, disheveled) Skin: Warm, Dry Head: Normacephalic, Other (Superficial contusion to right lateral temporal face area) Eye(s): bilateral: Normal Inspection, PERRL, EOMI Oral Mucosa: Moist Neck: Normal, No Midline Cervical Tenderness, No Paracervical Tenderness, Supple Chest: Symmetrical, No Tenderness Cardiovascular: Rhythm Regular Respiratory: Normal Breath Sounds, No Rales, No Rhonchi, No Wheezing Gastrointestinal/Abdominal: Soft, No Tenderness Extremity: Normal ROM (x4) Neurological/Psych: Oriented x3, Normal Speech Gait: Steady Medical Decision Making Medical Decision Making: persistent alcohol abuse and homeless/malingering seen for same earlier today and d/c @ 14:30 hrs superficial contusion to R lateral brow, no radiology required ok for d/c. Disposition Doctor Will See Patient In The: Office Counseled Patient/Family Regarding: Studies Performed, Diagnosis - Disposition Referrals: Alcoholics Anonymous [Outside] [facility] [Outside] [facility] [Outside] [facility] [Outside] [facility] [Outside] Disposition: HOME/ ROUTINE Disposition Time: 21:49 Condition: GOOD Additional Instructions: seek nightly [facility] placement seek outpatient help for your alcohol abuse and mental illness issues. Instructions: Alcohol Abuse and Alcoholism (DC) - Clinical Impression Clinical Impression: Alcoholism /alcohol abuse - Scribe Statement The provider has reviewed the documentation as recorded by the Scribe Chalino Huang All medical record entries made by the Scribe were at my direction and personally dictated by me. I have reviewed the chart and agree that the record accurately reflects my personal performance of the history, physical exam, medical decision making, and the department course for this patient. I have also personally directed, reviewed, and agree with the discharge instructions and disposition.
[2017-11-21 22:48] VITALS: BP 137/82; PULSE 87; RESP 16; TEMP 97; O2SAT 99
== END 2017-11-21 22:59 | disposition home or self-care (01) ==
LOC: C.ER 21:25
DX: F10.229 Alcohol dependence with intoxication, unspecified (principal)

== ENCOUNTER 2017-11-23 20:30 | Emergency (ER) | payer MEDICARE ==
[2017-11-23 20:31] VITALS: BMI 30.4
--- NOTE | 2017-11-23 22:06 | C.PDOC ---
History Of Present Illness 72 year old male with PMHx of alcohol abuse is brought to the ED by EMS for alcohol intoxication. Patient was multiple prior visits to the ED for similar presentation. Patient denies SI/HI, hallucinations, other substance abuse. Time Seen by Provider: 11/23/17 20:45 Chief Complaint (Nursing): Substance Abuse History Per: Patient, EMS History/Exam Limitations: intoxication Onset/Duration Of Symptoms: Hrs Current Symptoms Are (Timing): Still Present Suicide/Self Injury Attempted (Context): None Modifying Factor(s): Alcohol Associated Symptoms: denies: Depression, Suicidal Thoughts, Suicidal Plan Involuntary Hold By: None Recent travel outside of the [place]: No Additional History Per: Patient, EMS Past Medical History Reviewed: Historical Data, Nursing Documentation, Vital Signs Vital Signs: Last Vital Signs Temp 98 F 11/23/17 20:58 Pulse 88 11/23/17 20:58 Resp 20 11/23/17 20:58 BP 120/80 11/23/17 20:58 Pulse Ox 98 11/23/17 22:18 - Medical History PMH: Anxiety, Asthma, Back Problems, Bipolar Disorder, Depression, Gastritis, HTN, Schizophrenia, Chronic Pain (Back Pain) Denies: Chronic Kidney Disease Surgical History: Hernia Repair, Tonsillectomy - [facility] Procedures DETOXIFICATION SERVICES FOR SUBSTANCE ABUSE TREATMENT (12/26/15) Family History: States: Unknown Family Hx - Social History Hx Tobacco Use: No Hx Alcohol Use: Yes Hx Substance Use: No - Immunization History Hx Tetanus Toxoid Vaccination: No Hx Influenza Vaccination: No Hx Pneumococcal Vaccination: No Review Of Systems Except As Marked, All Systems Reviewed And Found Negative. Psych: Negative for: Depression, Suicidal ideation Physical Exam - Physical Exam Additional Physical Exam Comments: Constitutional: No acute distress. Head: Normocephalic. Atraumatic. Eyes: PERRL. ENT: Moist mucous membranes. Neck: Supple. Cardiovascular: Regular rate. Radial pulses 2+ bilaterally. Chest: No tenderness. Respiratory: Clear to auscultation bilaterally. GI: Soft. Nontender. Nondistended. Back: No CVA tenderness. Musculoskeletal: No tenderness or swelling of extremities. Skin: No rash. Neurologic: Alert, no focal deficit. ED Course And Treatment O2 Sat by Pulse Oximetry: 98 (ON RA) Pulse Ox Interpretation: Normal Medical Decision Making Medical Decision Making: No evidence of trauma. Will discharge once sober. Disposition - Disposition Disposition: HOME/ ROUTINE Disposition Time: 22:06 Condition: STABLE Instructions: Alcohol Abuse and Alcoholism (DC) Forms: [employer] [facility] (Central African) - Clinical Impression Clinical Impression: Intoxication - Scribe Statement The provider has reviewed the documentation as recorded by the Scribe Eulogio Sanchez All medical record entries made by the Scribe were at my direction and personally dictated by me. I have reviewed the chart and agree that the record accurately reflects my personal performance of the history, physical exam, medical decision making, and the department course for this patient. I have also personally directed, reviewed, and agree with the discharge instructions and disposition.
[2017-11-24 02:40] VITALS: TEMP 98.8; O2SAT 95
[2017-11-24 05:21] VITALS: BP 142/78; PULSE 82; RESP 12
== END 2017-11-24 05:20 | disposition home or self-care (01) ==
LOC: C.ER 20:30
DX: F10.129 Alcohol abuse with intoxication, unspecified (principal)

== ENCOUNTER 2017-11-24 13:41 | Emergency (ER) | payer MEDICARE ==
[2017-11-24 13:41] VITALS: BMI 30.4
[2017-11-24 13:56] VITALS: BP 117/78; PULSE 82; RESP 16; TEMP 98.5; O2SAT 98
--- NOTE | 2017-11-24 14:46 | C.PDOC ---
History Of Present Illness 72-year-old male, presents to the emergency department, brought in by EMS, with complaints of public intoxication. Time Seen by Provider: 11/24/17 13:49 Chief Complaint (Nursing): Substance Abuse History Per: EMS History/Exam Limitations: intoxication Past Medical History Reviewed: Historical Data, Nursing Documentation, Vital Signs Vital Signs: Last Vital Signs Temp 98.5 F 11/24/17 13:55 Pulse 82 11/24/17 13:55 Resp 16 11/24/17 13:55 BP 117/78 11/24/17 13:55 Pulse Ox 98 11/24/17 16:00 - Medical History PMH: Anxiety, Asthma, Back Problems, Bipolar Disorder, Depression, Gastritis, HTN, Schizophrenia, Chronic Pain (Back Pain) Denies: Chronic Kidney Disease Surgical History: Hernia Repair, T[facility]illectomy - [facility] Procedures DETOXIFICATION SERVICES FOR SUBSTANCE ABUSE TREATMENT (12/26/15) Family History: States: No Known Family Hx - Social History Hx Tobacco Use: No Hx Alcohol Use: Yes Hx Substance Use: No - Immunization History Hx Tetanus Toxoid Vaccination: No Hx Influenza Vaccination: No Hx Pneumococcal Vaccination: No Review Of Systems Constitutional: Negative for: Fever Cardiovascular: Negative for: Chest Pain Respiratory: Negative for: Shortness of Breath Gastrointestinal: Negative for: Vomiting Musculoskeletal: Negative for: Back Pain Neurological: Negative for: Weakness, Headache, Dizziness Physical Exam - Physical Exam Appears: Non-toxic, No Acute Distress, Other (EtOH on breath) Skin: Normal Color, Warm, Dry, No Rash Head: Atraumatic, Normacephalic Eye(s): bilateral: Normal Inspection Nose: Normal Oral Mucosa: Moist Lips: Normal Appearing Neck: Normal ROM Cardiovascular: Rhythm Regular, No Murmur Respiratory: Normal Breath Sounds, No Accessory Muscle Use Gastrointestinal/Abdominal: Soft, No Tenderness Extremity: Normal ROM, No Deformity, No Swelling ED Course And Treatment O2 Sat by Pulse Oximetry: 98 Pulse Ox Interpretation: Normal (RA) Medical Decision Making Medical Decision Making: PT WALKED OUT Disposition Counseled Patient/Family Regarding: Studies Performed, Diagnosis - Disposition Disposition: ELOPEMENT - ER ONLY Disposition Time: 14:45 Condition: STABLE Additional Instructions: , Instructions: Alcohol Use - When Is Drinking a Problem? Forms: [facility] (Azeri), General Discharge Instructions - Clinical Impression Clinical Impression: Alcohol abuse - Scribe Statement The provider has reviewed the documentation as recorded by the Scribe (Liseth Bañuelos) All medical record entries made by the Scribe were at my direction and personally dictated by me. I have reviewed the chart and agree that the record accurately reflects my personal performance of the history, physical exam, medical decision making, and the department course for this patient. I have also personally directed, reviewed, and agree with the discharge instructions and disposition.
== END 2017-11-24 15:14 | disposition left against medical advice (07) ==
LOC: C.ER 13:41
DX: F10.10 Alcohol abuse, uncomplicated (principal); Y90.9 Presence of alcohol in blood, level not specified

== ENCOUNTER 2017-11-24 15:30 | Emergency (ER) | payer MEDICARE ==
[2017-11-24 15:31] VITALS: BMI 30.4
[2017-11-24 15:41] VITALS: O2SAT 96
--- NOTE | 2017-11-24 16:21 | C.PDOC ---
History Of Present Illness 72 y/o male returns to the ER via EMS due to public intoxication. Of note, patient was seen here earlier today and eloped. As per EMS, patient was noted to have bruising to the right side of forehead. Patient has no recollection of recent fall or head trauma. He is awake and alert, states he does not know why he was brought here. Time Seen by Provider: 11/24/17 16:07 Chief Complaint (Nursing): Substance Abuse History Per: Patient History/Exam Limitations: intoxication Onset/Duration Of Symptoms: Hrs Current Symptoms Are (Timing): Still Present Modifying Factor(s): Alcohol Additional History Per: EMS Past Medical History Reviewed: Historical Data, Nursing Documentation, Vital Signs Vital Signs: Last Vital Signs Temp 98.2 F 11/24/17 15:35 Pulse 93 H 11/24/17 15:35 Resp 16 11/24/17 15:35 BP 118/78 11/24/17 15:35 Pulse Ox 96 11/24/17 18:35 - Medical History PMH: Anxiety, Asthma, Back Problems, Bipolar Disorder, Depression, Gastritis, HTN, Schizophrenia, Chronic Pain (Back Pain) Denies: Chronic Kidney Disease Surgical History: Hernia Repair, Tonsillectomy - [facility] Procedures DETOXIFICATION SERVICES FOR SUBSTANCE ABUSE TREATMENT (12/26/15) Family History: States: Unknown Family Hx - Social History Hx Tobacco Use: No Hx Alcohol Use: Yes Hx Substance Use: No - Immunization History Hx Tetanus Toxoid Vaccination: No Hx Influenza Vaccination: No Hx Pneumococcal Vaccination: No Review Of Systems Except As Marked, All Systems Reviewed And Found Negative. Constitutional: Negative for: Fever Gastrointestinal: Negative for: Nausea, Vomiting, Abdominal Pain Skin: Positive for: Bruising (to right forehead). Negative for: Lesions Neurological: Negative for: Weakness, Numbness, Incoordination, Dizziness Psych: Positive for: Other (alcohol abuse). Negative for: Suicidal ideation Physical Exam - Physical Exam Appears: Non-toxic, No Acute Distress Skin: Warm, Dry Head: Normacephalic, No Swelling, No Laceration, Other (Ecchymosis to right forehead) Eye(s): bilateral: Normal Inspection, PERRL, EOMI Oral Mucosa: Moist Neck: Normal ROM, No Midline Cervical Tenderness, No Step Off Deformity, Supple Chest: Symmetrical Cardiovascular: Rhythm Regular, No Murmur Respiratory: Normal Breath Sounds, No Rales, No Rhonchi, No Wheezing Gastrointestinal/Abdominal: Soft, No Tenderness Extremity: Bilateral: Atraumatic, Normal Color And Temperature, Normal ROM Neurological/Psych: Normal Speech, Other (Awake and alert, +AOB) ED Course And Treatment O2 Sat by Pulse Oximetry: 96 (RA) Pulse Ox Interpretation: Normal - CT Scan/US Head CT Other Rad Studies (CT/US): Read By Radiologist, Radiology Report Reviewed CT/US Interpretation: Accession No. : [id number]. Patient Name / ID : RYANNE KUNZ / [id number]. Exam Date : 11/24/2017 16:29:43 ( Approved ). Study Comment : Sex / Age : M / 72Y. Creator : Markos Odom MD. Dictator : Literacy Teacher : [employer] Architect : Markos Odom MD. Approver2 : Report Date : 11/24/2017 16:42:27. My Comment : . Date of service: 2017. PROCEDURE: CT HEAD WITHOUT CONTRAST. HISTORY: Dizziness. COMPARISON: Comparison made with prior CT scan brain 10/09/2017. TECHNIQUE: Contiguous helical/transaxial the the computed tomography images were obtained through the head/brain without intravenous contrast. Radiation dose: Total exam DLP = 986.29 mGy-cm. This CT exam was performed using one or more of the following dose reduction techniques: Automated exposure control, adjustment of the mA and/ or kV according to patient size, and/or use of iterative reconstruction technique. FINDINGS: HEMORRHAGE: No acute parenchymal, subarachnoid or extra- axial hemorrhage. BRAIN: Mild diffuse/confluent chronic periventricular white matter ischemic changes. 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 Significant generalized volume loss again noted. VENTRICLES: No obstructive hydrocephalus. CALVARIUM: Calvarium intact. PARANASAL SINUSES: There is thickening and sclerosis posterolateral wall right maxillary antrum. MASTOID AIR CELLS: Unremarkable as visualized. No inflammatory changes. OTHER FINDINGS: None. IMPRESSION: No acute intracranial hemorrhage. 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 Significant generalized volume loss. Medical Decision Making Medical Decision Making: Impression: ETOH intoxication, possible head injury Plan: * accucheck * CT Head 1834 - patient ct head without bleed, patient ambulatory with steady gait. Will discharge home to follow up with medical clinic within 2 days Disposition Counseled Patient/Family Regarding: Studies Performed, Diagnosis, Need For Followup - Disposition Referrals: [facility] [Outside] Disposition: HOME/ ROUTINE Disposition Time: 18:35 Condition: STABLE Additional Instructions: follow up with medical clinic within 2 days you must call to make an appointment take medication as needed for pain return to ER if symptoms worsens or progress Instructions: Closed Head Injury (DC), Alcohol Abuse and Alcoholism (DC) Forms: [facility] ([place]ymraes), General Discharge Instructions - Clinical Impression Clinical Impression: Alcohol abuse, Head injury - Scribe Statement The provider has reviewed the documentation as recorded by the [place] Provider Attestation: All medical record entries made by the Omar were at my direction and personally dictated by me. I have reviewed the chart and agree that the record accurately reflects my personal performance of the history, physical exam, medical decision making, and the department course for this patient. I have also personally directed, reviewed, and agree with the discharge instructions and disposition.
--- NOTE | 2017-11-24 16:43 | CT ---
Date of service: 11/24/2017 PROCEDURE: CT HEAD WITHOUT CONTRAST. HISTORY: Dizziness. COMPARISON: Comparison made with prior CT scan brain 10/09/2017. TECHNIQUE: Contiguous helical/transaxial the the computed tomography images were obtained through the head/brain without intravenous contrast. Radiation dose: Total exam DLP = 986.29 mGy-cm. This CT exam was performed using one or more of the following dose reduction techniques: Automated exposure control, adjustment of the mA and/or kV according to patient size, and/or use of iterative reconstruction technique. FINDINGS: HEMORRHAGE: No acute parenchymal, subarachnoid or extra-axial hemorrhage. BRAIN: Mild diffuse/confluent chronic periventricular white matter ischemic changes. 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 Significant generalized volume loss again noted. VENTRICLES: No obstructive hydrocephalus. CALVARIUM: Calvarium intact PARANASAL SINUSES: There is thickening and sclerosis posterolateral wall right maxillary antrum. MASTOID AIR CELLS: Unremarkable as visualized. No inflammatory changes. OTHER FINDINGS: None. IMPRESSION: No acute intracranial hemorrhage. 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 Significant generalized volume loss.
[2017-11-24 19:20] VITALS: BP 104/64; PULSE 90; RESP 18; TEMP 98.7
== END 2017-11-24 19:20 | disposition home or self-care (01) ==
LOC: C.ER 15:30
DX: F10.129 Alcohol abuse with intoxication, unspecified (principal); Y90.9 Presence of alcohol in blood, level not specified; S00.83XA Contusion of other part of head, initial encounter; X58.XXXA Exposure to other specified factors, initial encounter

== ENCOUNTER 2017-11-24 20:38 | Emergency (ER) | payer MEDICARE ==
[2017-11-24 20:38] VITALS: BMI 30.4
== END 2017-11-24 20:42 | disposition left against medical advice (07) ==
LOC: C.ER 20:38
DX: Z02.89 Encounter for other administrative examinations (principal)

== ENCOUNTER 2017-11-27 00:23 | Emergency (ER) | payer MEDICARE ==
[2017-11-27 00:23] VITALS: BMI 30.4
[2017-11-27 00:32] VITALS: RESP 16; TEMP 98.2
--- NOTE | 2017-11-27 01:40 | C.PDOC ---
History Of Present Illness 72 year old male presents to the ER via EMS for public intoxication. Denies physical complaints at this time. Chief Complaint (Nursing): Substance Abuse History Per: Patient, EMS History/Exam Limitations: no limitations Onset/Duration Of Symptoms: Hrs Current Symptoms Are (Timing): Still Present Suicide/Self Injury Attempted (Context): None Modifying Factor(s): Alcohol Associated Symptoms: denies: Depression, Suicidal Thoughts Involuntary Hold By: None Recent travel outside of the [place]: No Past Medical History Reviewed: Historical Data, Nursing Documentation, Vital Signs Vital Signs: Last Vital Signs Temp 98.2 F 11/27/17 00:32 Pulse 80 11/27/17 04:11 Resp 16 11/27/17 04:11 BP 108/70 11/27/17 04:11 Pulse Ox 96 11/27/17 04:11 - Medical History PMH: Anxiety, Asthma, Back Problems, Bipolar Disorder, Depression, Gastritis, HTN, Schizophrenia, Chronic Pain (Back Pain) Denies: Chronic Kidney Disease Surgical History: Hernia Repair, Tonsillectomy - [facility] Procedures DETOXIFICATION SERVICES FOR SUBSTANCE ABUSE TREATMENT (12/26/15) Family History: States: Unknown Family Hx - Social History Hx Tobacco Use: No Hx Alcohol Use: Yes Hx Substance Use: No - Immunization History Hx Tetanus Toxoid Vaccination: No Hx Influenza Vaccination: No Hx Pneumococcal Vaccination: No Review Of Systems Constitutional: Negative for: Fever, Chills Cardiovascular: Negative for: Chest Pain, Palpitations Respiratory: Negative for: Cough, Shortness of Breath Gastrointestinal: Negative for: Nausea, Vomiting Physical Exam - Physical Exam Appears: Non-toxic, Other (ETOH on breath, no sign of injury) Skin: Normal Color, Warm, Dry Head: Atraumatic, Normacephalic Eye(s): bilateral: Normal Inspection Oral Mucosa: Moist Chest: Symmetrical, No Tenderness Cardiovascular: Rhythm Regular Respiratory: Normal Breath Sounds, No Rales, No Rhonchi, No Wheezing Gastrointestinal/Abdominal: Soft, No Tenderness Neurological/Psych: Oriented x3, Normal Speech ED Course And Treatment O2 Sat by Pulse Oximetry: 94 Disposition Counseled Patient/Family Regarding: Diagnosis - Disposition Referrals: [facility] at [facility] [Outside] Disposition: HOME/ ROUTINE Disposition Time: 05:36 Condition: STABLE Instructions: Alcohol Abuse and Alcoholism (DC) Forms: [employer] (Citizen [place]) - POA Present On Arrival: None - Clinical Impression Clinical Impression: Intoxication - Scribe Statement The provider has reviewed the documentation as recorded by the Scribe Chalino Huang All medical record entries made by the Scribe were at my direction and personally dictated by me. I have reviewed the chart and agree that the record accurately reflects my personal performance of the history, physical exam, medical decision making, and the department course for this patient. I have also personally directed, reviewed, and agree with the discharge instructions and disposition.
[2017-11-27 04:12] VITALS: BP 108/70; PULSE 80
[2017-11-27 05:37] VITALS: O2SAT 94
== END 2017-11-27 05:46 | disposition home or self-care (01) ==
LOC: C.ER 00:23
DX: F10.129 Alcohol abuse with intoxication, unspecified (principal); F20.9 Schizophrenia, unspecified; I10 Essential (primary) hypertension

== ENCOUNTER 2017-11-27 16:10 | Emergency (ER) | payer MEDICARE, OTHER ==
[2017-11-27 16:10] VITALS: BMI 30.4
--- NOTE | 2017-11-27 16:34 | C.PDOC ---
History Of Present Illness 72 y/o male with history of ETOH abuse brought to ED by EMS for public ETOH intoxication. Patient denies SI/HI, hallucinations or any physical complaints at this time. Time Seen by Provider: 11/27/17 16:25 History Per: Patient, EMS History/Exam Limitations: intoxication Onset/Duration Of Symptoms: Days Current Symptoms Are (Timing): Still Present Suicide/Self Injury Attempted (Context): None Modifying Factor(s): Alcohol Past Medical History Reviewed: Historical Data, Nursing Documentation, Vital Signs Vital Signs: Last Vital Signs Temp 98.1 F 11/27/17 16:47 Pulse 61 11/27/17 16:47 Resp 18 11/27/17 16:47 BP 98/69 L 11/27/17 16:47 Pulse Ox 95 11/27/17 16:47 - Medical History PMH: Anxiety, Asthma, Back Problems, Bipolar Disorder, Depression, Gastritis, HTN, Schizophrenia, Chronic Pain (Back Pain) Surgical History: Hernia Repair, Tonsillectomy - [facility] DETOXIFICATION SERVICES FOR SUBSTANCE ABUSE TREATMENT (12/26/15) Family History: States: No Known Family Hx - Social History Hx Tobacco Use: No Hx Alcohol Use: Yes Hx Substance Use: No - Immunization History Hx Tetanus Toxoid Vaccination: No Hx Influenza Vaccination: No Hx Pneumococcal Vaccination: No Review Of Systems Constitutional: Negative for: Fever, Chills Cardiovascular: Negative for: Chest Pain Gastrointestinal: Negative for: Nausea, Vomiting Skin: Negative for: Rash Psych: Positive for: Other (ETOH abuse). Negative for: Suicidal ideation Physical Exam - Physical Exam Appears: Non-toxic, No Acute Distress, Other (Malodorous, intoxicated) Skin: Warm, Dry, No Rash Head: Atraumatic, Normacephalic Eye(s): bilateral: Normal Inspection Oral Mucosa: Moist Neck: Supple Cardiovascular: Rhythm Regular Respiratory: Normal Breath Sounds, No Rales, No Rhonchi, No Wheezing Gastrointestinal/Abdominal: Soft, No Tenderness, No Guarding, No Rebound Extremity: Normal ROM, Capillary Refill (<2 seconds) Neurological/Psych: Oriented x3, Normal Speech, Normal Cognition ED Course And Treatment O2 Sat by Pulse Oximetry: 100 (RA) Pulse Ox Interpretation: Normal Disposition Counseled Patient/Family Regarding: Studies Performed, Diagnosis - Disposition Disposition: HOME/ ROUTINE Disposition Time: 18:22 Condition: STABLE Additional Instructions: follow up with your doctor or medical clinic within 2 days call to make an appointment take medication as needed for pain return to ER if symptoms worsens or progress Instructions: Alcohol Abuse and Alcoholism (DC) Forms: General Discharge Instructions, [facility] (Ukrainian) - Clinical Impression Clinical Impression: Alcohol abuse with intoxication - Scribe Statement The provider has reviewed the documentation as recorded by the Omar Jo All medical record entries made by the Omar were at my direction and personally dictated by me. I have reviewed the chart and agree that the record accurately reflects my personal performance of the history, physical exam, medical decision making, and the department course for this patient. I have also personally directed, reviewed, and agree with the discharge instructions and disposition.
[2017-11-27 16:49] VITALS: RESP 18
[2017-11-27 19:42] VITALS: BP 106/65; PULSE 68; TEMP 98; O2SAT 97
== END 2017-11-27 19:41 | disposition home or self-care (01) ==
LOC: C.ER 16:10
DX: F10.129 Alcohol abuse with intoxication, unspecified (principal)

== ENCOUNTER 2017-11-30 22:35 | Emergency (ER) | payer MEDICARE ==
[2017-11-30 22:35] VITALS: BMI 30.4
--- NOTE | 2017-11-30 23:22 | C.PDOC ---
History Of Present Illness 72 year old male is brought to the ED by EMS for intoxication. Patient was found laying in the street. Patient denies drinking alcohol today. Patient denies SI/HI, hallucinations, trauma, injury, fall. Chief Complaint (Nursing): Medical Clearance History Per: Patient, EMS History/Exam Limitations: intoxication Onset/Duration Of Symptoms: Hrs Current Symptoms Are (Timing): Still Present Recent travel outside of the [place]: No Additional History Per: Patient, EMS Past Medical History Reviewed: Historical Data, Nursing Documentation, Vital Signs Vital Signs: Last Vital Signs Temp 98.7 F 11/30/17 23:08 Pulse 90 11/30/17 23:08 Resp 16 11/30/17 23:08 BP 100/60 11/30/17 23:08 Pulse Ox 96 12/01/17 04:45 - Medical History PMH: Anxiety, Asthma, Back Problems, Bipolar Disorder, Depression, Gastritis, HTN, Schizophrenia, Chronic Pain (Back Pain) Denies: Chronic Kidney Disease Surgical History: Hernia Repair, Tonsillectomy - [facility] DETOXIFICATION SERVICES FOR SUBSTANCE ABUSE TREATMENT (12/26/15) Family History: States: Unknown Family Hx - Social History Hx Tobacco Use: No Hx Alcohol Use: Yes Hx Substance Use: No - Immunization History Hx Tetanus Toxoid Vaccination: No Hx Influenza Vaccination: No Hx Pneumococcal Vaccination: No Review Of Systems Constitutional: Negative for: Fever, Chills Cardiovascular: Negative for: Chest Pain, Palpitations Respiratory: Negative for: Shortness of Breath Gastrointestinal: Negative for: Nausea, Vomiting Skin: Negative for: Rash Neurological: Negative for: Weakness, Numbness Psych: Negative for: Depression, Suicidal ideation Physical Exam - Physical Exam Appears: Non-toxic, No Acute Distress Skin: Normal Color, Warm, Dry Head: Atraumatic, Normacephalic Eye(s): bilateral: Normal Inspection Oral Mucosa: Moist Neck: Normal ROM, No Midline Cervical Tenderness, Supple Chest: Symmetrical Cardiovascular: Rhythm Regular Respiratory: Normal Breath Sounds, No Rales, No Rhonchi, No Wheezing Gastrointestinal/Abdominal: Soft, No Tenderness, No Guarding, No Rebound Extremity: Normal ROM, No Tenderness, No Swelling Neurological/Psych: Oriented x3, Normal Speech Gait: Steady ED Course And Treatment O2 Sat by Pulse Oximetry: 96 (ON RA) Pulse Ox Interpretation: Normal Disposition Counseled Patient/Family Regarding: Diagnosis - Disposition Referrals: [facility] at [facility] [Outside] Disposition: HOME/ ROUTINE Disposition Time: 04:43 Condition: STABLE Instructions: Alcohol Abuse and Alcoholism (DC) Forms: [facility] (Cameroonian) - POA Present On Arrival: None - Clinical Impression Clinical Impression: Homelessness, Alcohol abuse - Scribe Statement The provider has reviewed the documentation as recorded by the Scribe Eulogio Sanchez All medical record entries made by the Scribe were at my direction and personally dictated by me. I have reviewed the chart and agree that the record accurately reflects my personal performance of the history, physical exam, medical decision making, and the department course for this patient. I have also personally directed, reviewed, and agree with the discharge instructions and disposition.
[2017-12-01 05:33] VITALS: RESP 18
[2017-12-01 05:34] VITALS: BP 110/61; PULSE 60; TEMP 97.6; O2SAT 98
== END 2017-12-01 05:35 | disposition home or self-care (01) ==
LOC: C.ER 22:35
DX: F10.10 Alcohol abuse, uncomplicated (principal); Z59.0 Homelessness; F20.9 Schizophrenia, unspecified; I10 Essential (primary) hypertension

== ENCOUNTER 2017-12-01 19:53 | Emergency (ER) | payer MEDICARE ==
[2017-12-01 19:53] VITALS: BMI 30.4
[2017-12-01 20:10] VITALS: RESP 18; TEMP 98.4
--- NOTE | 2017-12-01 20:35 | C.PDOC ---
History Of Present Illness 72 y/o male brought in by ambulance after being found intoxicated in public. Denies any physical complaints at this time. Time Seen by Provider: 12/01/17 20:33 Chief Complaint (Nursing): Substance Abuse History Per: Patient, EMS History/Exam Limitations: no limitations Onset/Duration Of Symptoms: Hrs Current Symptoms Are (Timing): Still Present Suicide/Self Injury Attempted (Context): None Modifying Factor(s): Alcohol Severity: None Pain Scale Rating Of: 0 Associated Symptoms: Other (not known) Involuntary Hold By: None Recent travel outside of the [place]: No Past Medical History Reviewed: Historical Data, Nursing Documentation, Vital Signs Vital Signs: Last Vital Signs Temp 98.4 F 12/01/17 20:08 Pulse 89 12/01/17 20:08 Resp 18 12/01/17 20:08 BP 116/69 12/01/17 20:08 Pulse Ox 96 12/01/17 21:57 - Medical History PMH: Anxiety, Asthma, Back Problems, Bipolar Disorder, Depression, Gastritis, HTN, Schizophrenia, Chronic Pain (Back Pain) Denies: Chronic Kidney Disease Surgical History: Hernia Repair, Tonsillectomy - [facility] DETOXIFICATION SERVICES FOR SUBSTANCE ABUSE TREATMENT (12/26/15) Family History: States: No Known Family Hx - Social History Hx Tobacco Use: No Hx Alcohol Use: Yes Hx Substance Use: No - Immunization History Hx Tetanus Toxoid Vaccination: No Hx Influenza Vaccination: No Hx Pneumococcal Vaccination: No Review Of Systems Constitutional: Negative for: Fever, Chills Cardiovascular: Negative for: Chest Pain, Palpitations Respiratory: Negative for: Shortness of Breath Gastrointestinal: Negative for: Nausea, Vomiting, Diarrhea Neurological: Negative for: Weakness, Numbness Physical Exam - Physical Exam Appears: Non-toxic, Other (ETOH on breath, no sign of injury) Skin: Warm, Dry Head: Normacephalic Eye(s): bilateral: Normal Inspection Oral Mucosa: Moist Neck: Trachea Midline, Supple Chest: Symmetrical, No Tenderness Cardiovascular: Rhythm Regular Respiratory: No Rales, No Rhonchi, No Wheezing Gastrointestinal/Abdominal: Soft, No Tenderness Neurological/Psych: Oriented x3 ED Course And Treatment O2 Sat by Pulse Oximetry: 96 (RA) Pulse Ox Interpretation: Normal Reevaluation Time: 05:03 Reassessment Condition: Improved Disposition Counseled Patient/Family Regarding: Studies Performed, Diagnosis, Need For Followup - Disposition Referrals: [facility] at [facility] [Outside] Disposition: HOME/ ROUTINE Disposition Time: 20:34 Condition: FAIR Instructions: Alcohol Abuse and Alcoholism (DC) Forms: [employer] (Nicaraguan) - Clinical Impression Clinical Impression: Alcohol abuse with intoxication - Scribe Statement The provider has reviewed the documentation as recorded by the Augustaibe Hanna Thornton Provider Attestation: All medical record entries made by the Augustaibjackelyn were at my direction and personally dictated by me. I have reviewed the chart and agree that the record accurately reflects my personal performance of the history, physical exam, medical decision making, and the department course for this patient. I have also personally directed, reviewed, and agree with the discharge instructions and disposition.
[2017-12-02 05:26] VITALS: BP 143/87; PULSE 82; O2SAT 98
== END 2017-12-02 05:26 | disposition home or self-care (01) ==
LOC: C.ER 19:53 → SUPCPDRO 19:53 → C.ER 12-02 05:26
DX: F10.129 Alcohol abuse with intoxication, unspecified (principal); F20.9 Schizophrenia, unspecified; F31.9 Bipolar disorder, unspecified; I10 Essential (primary) hypertension

== ENCOUNTER 2017-12-03 08:33 | Emergency (ER) | payer MEDICARE ==
[2017-12-03 08:33] VITALS: BMI 30.4
[2017-12-03 08:42] VITALS: BP 141/93; PULSE 99; RESP 18; TEMP 98.1; O2SAT 95
--- NOTE | 2017-12-03 09:02 | C.PDOC ---
History Of Present Illness 72yo male, brought to ER by EMS after they got a report that patient was malingering outside a restaurant. Currently patient denies alcohol use today. No signs of trauma noted. Time Seen by Provider: 12/03/17 09:01 Chief Complaint (Nursing): Dizziness/Lightheaded History Per: EMS History/Exam Limitations: no limitations Past Medical History Reviewed: Historical Data, Nursing Documentation, Vital Signs Vital Signs: Last Vital Signs Temp 98.1 F 12/03/17 08:47 Pulse 99 H 12/03/17 08:47 Resp 18 12/03/17 08:47 BP 141/93 H 12/03/17 08:47 Pulse Ox 95 12/03/17 09:02 - Medical History PMH: Anxiety, Asthma, Back Problems, Bipolar Disorder, Depression, Gastritis, HTN, Schizophrenia, Chronic Pain (Back Pain) Denies: Chronic Kidney Disease Surgical History: Hernia Repair, Tonsillectomy - [facility] DETOXIFICATION SERVICES FOR SUBSTANCE ABUSE TREATMENT (12/26/15) Family History: States: No Known Family Hx - Social History Hx Tobacco Use: No Hx Alcohol Use: Yes Hx Substance Use: No - Immunization History Hx Tetanus Toxoid Vaccination: No Hx Influenza Vaccination: No Hx Pneumococcal Vaccination: No Review Of Systems Constitutional: Negative for: Fever, Chills Cardiovascular: Negative for: Chest Pain Respiratory: Negative for: Shortness of Breath Gastrointestinal: Negative for: Abdominal Pain Neurological: Negative for: Weakness, Numbness Physical Exam - Physical Exam Appears: Non-toxic, Other (disheveled; foul smelling) Skin: Normal Color Head: Atraumatic, Normacephalic Eye(s): bilateral: Normal Inspection Neck: Supple Chest: Symmetrical Cardiovascular: Rhythm Regular Respiratory: Normal Breath Sounds Neurological/Psych: Oriented x3 ED Course And Treatment O2 Sat by Pulse Oximetry: 95 (RA) Pulse Ox Interpretation: Normal Medical Decision Making Medical Decision Making: malingering, no acute issues baseline exam no complaints Disposition Doctor Will See Patient In The: Office Counseled Patient/Family Regarding: Studies Performed, Diagnosis - Disposition Referrals: [facility] [Outside] [facility] [Outside] [facility] [Outside] [facility] [Outside] [place] [employer] [Outside] Disposition: HOME/ ROUTINE Disposition Time: 09:02 Condition: GOOD Forms: General Discharge Instructions, [facility] (Botswanan) - Clinical Impression Clinical Impression: Homelessness, Malingering - Scribe Statement The provider has reviewed the documentation as recorded by the Omar Ramsey Provider Attestation: All medical record entries made by the Omar were at my direction and personally dictated by me. I have reviewed the chart and agree that the record accurately reflects my personal performance of the history, physical exam, medical decision making, and the department course for this patient. I have also personally directed, reviewed, and agree with the discharge instructions and disposition.
== END 2017-12-03 09:17 | disposition home or self-care (01) ==
LOC: C.ER 08:33
DX: Z59.0 Homelessness (principal); Z76.5 Malingerer [conscious simulation]; F20.9 Schizophrenia, unspecified; I10 Essential (primary) hypertension

== ENCOUNTER 2017-12-03 13:05 | Emergency (ER) | payer MEDICARE ==
[2017-12-03 13:07] VITALS: BP 110/70; PULSE 100; RESP 20; TEMP 97.7; O2SAT 96; BMI 24.3
--- NOTE | 2017-12-03 14:50 | C.PDOC ---
History Of Present Illness 72yo male brought to ER by EMS for evaluation after patient was noted to be publicly intoxicated. Patient currently has no medical complaints. Time Seen by Provider: 12/03/17 13:16 Chief Complaint (Nursing): Substance Abuse History Per: EMS History/Exam Limitations: intoxication Past Medical History Reviewed: Historical Data, Nursing Documentation, Vital Signs Vital Signs: Last Vital Signs Temp 97.7 F 12/03/17 13:05 Pulse 100 H 12/03/17 13:05 Resp 20 12/03/17 13:05 BP 110/70 12/03/17 13:05 Pulse Ox 96 12/03/17 14:50 - Medical History PMH: Anxiety, Asthma, Back Problems, Bipolar Disorder, Depression, Gastritis, HTN, Schizophrenia, Chronic Pain (Back Pain) Denies: Chronic Kidney Disease Surgical History: Hernia Repair, Tonsillectomy - [facility] DETOXIFICATION SERVICES FOR SUBSTANCE ABUSE TREATMENT (12/26/15) Family History: States: Unknown Family Hx - Social History Hx Tobacco Use: No Hx Alcohol Use: Yes Hx Substance Use: No - Immunization History Hx Tetanus Toxoid Vaccination: No Hx Influenza Vaccination: No Hx Pneumococcal Vaccination: No Review Of Systems Except As Marked, All Systems Reviewed And Found Negative. Psych: Positive for: Other (alcohol intoxication) Physical Exam - Physical Exam Appears: No Acute Distress Head: Normacephalic Eye(s): bilateral: Normal Inspection Neck: Supple Chest: Symmetrical Cardiovascular: Rhythm Regular Respiratory: Normal Breath Sounds Neurological/Psych: Oriented x3 ED Course And Treatment O2 Sat by Pulse Oximetry: 96 (RA) Pulse Ox Interpretation: Normal Progress Note: Patient sleeping in room and in no acute distress. Disposition - Disposition Disposition: ELOPEMENT - ER ONLY Disposition Time: 15:30 Condition: IMPROVED - Clinical Impression Clinical Impression: Alcohol intoxication - Scribe Statement The provider has reviewed the documentation as recorded by the Omar Ramsey Provider Attestation: All medical record entries made by the Omar were at my direction and personally dictated by me. I have reviewed the chart and agree that the record accurately reflects my personal performance of the history, physical exam, medical decision making, and the department course for this patient. I have also personally directed, reviewed, and agree with the discharge instructions and disposition.
== END 2017-12-03 15:29 | disposition left against medical advice (07) ==
LOC: C.ER 13:05
DX: F10.129 Alcohol abuse with intoxication, unspecified (principal); F20.9 Schizophrenia, unspecified; I10 Essential (primary) hypertension

== ENCOUNTER 2017-12-04 16:06 | Emergency (ER) | payer MEDICARE ==
[2017-12-04 16:10] VITALS: BMI 24.1
[2017-12-04 16:50] VITALS: BP 104/82; PULSE 78; RESP 17; TEMP 98.5; O2SAT 96
--- NOTE | 2017-12-04 16:50 | C.PDOC ---
History Of Present Illness 72 y/o male brought to ER by ambulance for evaluation of public intoxication. Patient denies that he was drinking. Patient reports that he does understand why he is in the hopsital and he was in the hospital last night. Denies having suicidal ideation, homicidal ideation, and active physical complaints.He is just requesting a sandwich. Time Seen by Provider: 12/04/17 16:13 Chief Complaint (Nursing): Substance Abuse History Per: Patient History/Exam Limitations: no limitations Past Medical History Reviewed: Historical Data, Nursing Documentation, Vital Signs Vital Signs: Last Vital Signs Temp 98.5 F 12/04/17 16:48 Pulse 78 12/04/17 16:48 Resp 17 12/04/17 16:48 BP 104/82 12/04/17 16:48 Pulse Ox 96 12/04/17 16:53 - Medical History PMH: Anxiety, Asthma, Back Problems, Bipolar Disorder, Depression, Gastritis, HTN, Schizophrenia, Chronic Pain (Back Pain) Denies: Chronic Kidney Disease Surgical History: Hernia Repair, Tonsillectomy - [facility] Procedures DETOXIFICATION SERVICES FOR SUBSTANCE ABUSE TREATMENT (12/26/15) Family History: States: No Known Family Hx - Social History Hx Tobacco Use: No Hx Alcohol Use: Yes Hx Substance Use: No - Immunization History Hx Tetanus Toxoid Vaccination: No Hx Influenza Vaccination: No Hx Pneumococcal Vaccination: No Review Of Systems Except As Marked, All Systems Reviewed And Found Negative. Constitutional: Negative for: Fever, Chills Physical Exam - Physical Exam Appears: No Acute Distress, Other (disheveled) Skin: Normal Color, Warm, Dry Head: Atraumatic, Normacephalic Eye(s): bilateral: Normal Inspection Nose: Normal Oral Mucosa: Moist, Other (ETOH on breath) Neck: Supple Chest: Symmetrical Cardiovascular: Rhythm Regular Respiratory: Normal Breath Sounds, No Rales, No Rhonchi, No Wheezing Gastrointestinal/Abdominal: Normal Exam, Soft, No Tenderness, No Guarding, No Rebound Neurological/Psych: Other (oriented x2, not oriented to time) ED Course And Treatment O2 Sat by Pulse Oximetry: 96 (RA) Pulse Ox Interpretation: Normal Medical Decision Making Medical Decision Making: Patient with absolutely no medical complaints. States that he wants a sandwich. Stable for discharge. Disposition - Disposition Disposition: HOME/ ROUTINE Disposition Time: 16:48 Condition: GOOD Additional Instructions: Additional Aftercare Instructions The emergency medical care you received today was directed at your acute symptoms. If you develop any new or worsening symptoms please contact your PCP/ Clinic or return to the Emergency Department. Despite a negative work up you still may have a significant medical or surgical problem. Contact your doctor or the referral doctor today for a follow up appointment. Bring any paperwork you were given at discharge with you along with any medications. Our treatment cannot replace on going medical care by your primary care provider (PCP). If you were given prescriptions fill and take as directed. It may take several days for your symptoms to resolve. If you had an X-Ray or CT scan: A Radiologist will review the ED reading if any change in treatment is needed we will contact you. If you had a blood, urine, or wound culture: It will take several days for the results, if any change in treatment is needed we will contact you. Follow-Up Care: Please follow up with your doctor or call one of the physicians/clinics you have been referred to listed on the Patient Visit Information form that is included in your discharge packet. We may need to contact you with final test results please confirm your phone number is correct. Your questions, comments, suggestions and/or concerns are valuable to us. Please feel free to contact our patient hotline at . Thanks for allowing the [facility] team to be part of your care today. Instructions: Alcohol Use - When Is Drinking a Problem? Forms: [email or web address] [facility] (Jamaican) - Clinical Impression Clinical Impression: Alcohol abuse - Scribe Statement The provider has reviewed the documentation as recorded by the Omar Brock Provider Attestation: All medical record entries made by the Omar were at my direction and personally dictated by me. I have reviewed the chart and agree that the record accurately reflects my personal performance of the history, physical exam, medical decision making, and the department course for this patient. I have also personally directed, reviewed, and agree with the discharge instructions and disposition.
== END 2017-12-04 16:58 | disposition home or self-care (01) ==
LOC: C.ER 16:06
DX: F10.10 Alcohol abuse, uncomplicated (principal); Y90.9 Presence of alcohol in blood, level not specified

== ENCOUNTER 2017-12-04 18:14 | Emergency (ER) | payer MEDICARE ==
[2017-12-04 18:14] VITALS: BMI 24.1
[2017-12-04 18:38] VITALS: BP 101/64; PULSE 116; RESP 20; TEMP 99.6; O2SAT 95
--- NOTE | 2017-12-04 19:26 | C.PDOC ---
History Of Present Illness 72 y/o male brought to ER by S for public intoxication after being discharged at [facility] earlier today. Patient denies having suicidal ideation, homicidal ideation, and active physical complaints. Of note, patient is well known to [facility] ER because he has been evaluated multiple times for ETOH intoxication. Time Seen by Provider: 12/04/17 18:17 Chief Complaint (Nursing): Substance Abuse History Per: Patient History/Exam Limitations: no limitations Past Medical History Reviewed: Historical Data, Nursing Documentation, Vital Signs Vital Signs: Last Vital Signs Temp 99.6 F 12/04/17 18:35 Pulse 116 H 12/04/17 18:35 Resp 20 12/04/17 18:35 BP 101/64 12/04/17 18:35 Pulse Ox 95 12/04/17 19:29 - Medical History PMH: Anxiety, Asthma, Back Problems, Bipolar Disorder, Depression, Gastritis, HTN, Schizophrenia, Chronic Pain (Back Pain) Denies: Chronic Kidney Disease Surgical History: Hernia Repair, Tonsillectomy - [facility] Procedures DETOXIFICATION SERVICES FOR SUBSTANCE ABUSE TREATMENT (12/26/15) Family History: States: No Known Family Hx - Social History Hx Tobacco Use: No Hx Alcohol Use: Yes Hx Substance Use: No - Immunization History Hx Tetanus Toxoid Vaccination: No Hx Influenza Vaccination: No Hx Pneumococcal Vaccination: No Review Of Systems Except As Marked, All Systems Reviewed And Found Negative. Constitutional: Negative for: Fever, Chills Physical Exam - Physical Exam Appears: No Acute Distress Skin: Normal Color, Warm, Dry Head: Atraumatic, Normacephalic Eye(s): bilateral: Normal Inspection Nose: Normal Oral Mucosa: Moist, Other (ETOH on breath) Neck: Supple Chest: Symmetrical Cardiovascular: Rhythm Regular Respiratory: Normal Breath Sounds, No Rales, No Rhonchi, No Wheezing Neurological/Psych: Oriented x3, Normal Speech ED Course And Treatment O2 Sat by Pulse Oximetry: 95 (RA) Pulse Ox Interpretation: Normal Medical Decision Making Medical Decision Making: patient eloped from the ED shortly after evaluation by MD. Disposition - Disposition Disposition: ELOPEMENT - ER ONLY Disposition Time: 19:06 Condition: GOOD Forms: [facility] (Palauan) - Clinical Impression Clinical Impression: Alcohol abuse, Homelessness - Scribe Statement The provider has reviewed the documentation as recorded by the Omar Brock Provider Attestation: All medical record entries made by the Scribe were at my direction and personally dictated by me. I have reviewed the chart and agree that the record accurately reflects my personal performance of the history, physical exam, medical decision making, and the department course for this patient. I have also personally directed, reviewed, and agree with the discharge instructions and disposition.
== END 2017-12-04 19:07 | disposition left against medical advice (07) ==
LOC: C.ER 18:14
DX: F10.10 Alcohol abuse, uncomplicated (principal); Y90.9 Presence of alcohol in blood, level not specified; Z59.0 Homelessness

== ENCOUNTER 2017-12-05 14:45 | Emergency (ER) | payer MEDICARE ==
[2017-12-05 14:46] VITALS: BMI 24.1
[2017-12-05 15:35] VITALS: RESP 18; O2SAT 96
--- NOTE | 2017-12-05 15:43 | C.PDOC ---
History Of Present Illness 72 y/o male is brought to ED via [facility] for alcohol intoxication. Patient is well known to ED staff for multiple past visits for similar. Otherwise, patient denies SI, HI, or any active physical complaints at this time. Time Seen by Provider: 12/05/17 14:58 Chief Complaint (Nursing): Substance Abuse History Per: Patient History/Exam Limitations: no limitations Past Medical History Reviewed: Historical Data, Nursing Documentation, Vital Signs Vital Signs: Last Vital Signs Temp 98.2 F 12/05/17 15:31 Pulse 95 H 12/05/17 15:31 Resp 18 12/05/17 15:31 BP 112/75 12/05/17 15:31 Pulse Ox 96 12/05/17 15:43 - Medical History PMH: Anxiety, Asthma, Back Problems, Bipolar Disorder, Depression, Gastritis, HTN, Schizophrenia, Chronic Pain (Back Pain) Denies: Chronic Kidney Disease Surgical History: Hernia Repair, Tonsillectomy - [facility] Procedures DETOXIFICATION SERVICES FOR SUBSTANCE ABUSE TREATMENT (12/26/15) Family History: States: Unknown Family Hx - Social History Hx Tobacco Use: No Hx Alcohol Use: Yes Hx Substance Use: No - Immunization History Hx Tetanus Toxoid Vaccination: No Hx Influenza Vaccination: No Hx Pneumococcal Vaccination: No Review Of Systems Except As Marked, All Systems Reviewed And Found Negative. Constitutional: Negative for: Fever, Chills Cardiovascular: Negative for: Chest Pain Respiratory: Negative for: Shortness of Breath Physical Exam - Physical Exam Additional Physical Exam Comments: Constitutional: No acute distress. EtOH on breath. Head: Normocephalic. Atraumatic. Eyes: PERRL. ENT: Moist mucous membranes. Neck: Supple. Cardiovascular: Regular rate. Radial pulse 2+ bilaterally. Chest: No tenderness. Respiratory: Clear to auscultation bilaterally. GI: Soft. Nontender. Nondistended. Back: No CVA tenderness. Musculoskeletal: No tenderness or swelling of extremities. Skin: No rash. Neurologic: Alert, no focal deficit ED Course And Treatment O2 Sat by Pulse Oximetry: 96 Medical Decision Making Medical Decision Making: Observed until sober and steady on feet. Disposition - Disposition Disposition: HOME/ ROUTINE Disposition Time: 16:36 Condition: STABLE Instructions: Alcohol Abuse and Alcoholism (DC) Forms: [employer] (Citizen Of [place]) - Clinical Impression Clinical Impression: Alcohol intoxication - Scribe Statement The provider has reviewed the documentation as recorded by the Scribe KP All medical record entries made by the Scribe were at my direction and personally dictated by me. I have reviewed the chart and agree that the record accurately reflects my personal performance of the history, physical exam, medical decision making, and the department course for this patient. I have also personally directed, reviewed, and agree with the discharge instructions and disposition.
[2017-12-05 17:01] VITALS: BP 115/76; PULSE 85; TEMP 98.3
== END 2017-12-05 17:00 | disposition home or self-care (01) ==
LOC: C.ER 14:45
DX: F10.129 Alcohol abuse with intoxication, unspecified (principal)

== ENCOUNTER 2017-12-05 20:01 | Emergency (ER) | payer MEDICARE ==
[2017-12-05 20:02] VITALS: BMI 24.1
--- NOTE | 2017-12-05 20:45 | C.PDOC ---
History Of Present Illness 72 year old male is brought to the ED for alcohol intoxication. Patient has multiple prior visits to the ED in the past for similar presentations. Patient admits to drinking alcohol today. Patient denies SI/HI, hallucinations, trauma, injury. Time Seen by Provider: 12/05/17 20:44 Chief Complaint (Nursing): Medical Clearance History Per: Patient, EMS History/Exam Limitations: intoxication Onset/Duration Of Symptoms: Hrs Current Symptoms Are (Timing): Still Present Recent travel outside of the [place]: No Additional History Per: Patient, EMS Past Medical History Reviewed: Historical Data, Nursing Documentation, Vital Signs Vital Signs: Last Vital Signs Temp 98.2 F 12/05/17 20:50 Pulse 83 12/05/17 20:50 Resp 20 12/05/17 20:50 BP 129/76 12/05/17 20:50 Pulse Ox 97 12/05/17 20:59 - Medical History PMH: Anxiety, Asthma, Back Problems, Bipolar Disorder, Depression, Gastritis, HTN, Schizophrenia, Chronic Pain (Back Pain) Denies: Chronic Kidney Disease Surgical History: Hernia Repair, Tonsillectomy - [facility] Procedures DETOXIFICATION SERVICES FOR SUBSTANCE ABUSE TREATMENT (12/26/15) Family History: States: Unknown Family Hx - Social History Hx Tobacco Use: No Hx Alcohol Use: Yes Hx Substance Use: No - Immunization History Hx Tetanus Toxoid Vaccination: No Hx Influenza Vaccination: No Hx Pneumococcal Vaccination: No Review Of Systems Constitutional: Negative for: Fever, Chills Cardiovascular: Negative for: Chest Pain, Palpitations Respiratory: Negative for: Cough, Shortness of Breath Gastrointestinal: Negative for: Nausea, Vomiting Skin: Negative for: Rash Psych: Negative for: Depression, Suicidal ideation Physical Exam - Physical Exam Appears: Non-toxic, No Acute Distress Skin: Warm, Dry Head: Normacephalic Eye(s): bilateral: Normal Inspection Neck: Supple Chest: Symmetrical Cardiovascular: Rhythm Regular Respiratory: No Rales, No Rhonchi, No Wheezing Gastrointestinal/Abdominal: Soft, No Tenderness, No Guarding, No Rebound Extremity: No Tenderness, No Swelling Extremity: Bilateral: Atraumatic, Normal Color And Temperature, Normal ROM Neurological/Psych: Oriented x3, Normal Speech Gait: Steady ED Course And Treatment O2 Sat by Pulse Oximetry: 97 (ON RA) Pulse Ox Interpretation: Normal Reevaluation Time: 05:00 Reassessment Condition: Improved Disposition Counseled Patient/Family Regarding: Studies Performed, Diagnosis, Need For Followup - Disposition Referrals: [facility] [Outside] Disposition: HOME/ ROUTINE Disposition Time: 20:45 Condition: FAIR Instructions: Alcohol Abuse and Alcoholism (DC) Forms: [facility] (Mohawk) - Clinical Impression Clinical Impression: Alcohol abuse with intoxication - Scribe Statement The provider has reviewed the documentation as recorded by the Scribe Eulogio Sanchez All medical record entries made by the Scribe were at my direction and personally dictated by me. I have reviewed the chart and agree that the record accurately reflects my personal performance of the history, physical exam, medical decision making, and the department course for this patient. I have also personally directed, reviewed, and agree with the discharge instructions and disposition.
[2017-12-06 06:54] VITALS: BP 115/70; PULSE 80; RESP 14; TEMP 97; O2SAT 96
== END 2017-12-06 06:30 | disposition home or self-care (01) ==
LOC: C.ER 20:01
DX: F10.129 Alcohol abuse with intoxication, unspecified (principal)

== ENCOUNTER 2017-12-06 18:42 | Emergency (ER) | payer MEDICARE ==
[2017-12-06 18:42] VITALS: BMI 24.1
[2017-12-06 18:48] VITALS: BP 110/75; PULSE 84; RESP 16; TEMP 98.5; O2SAT 96
--- NOTE | 2017-12-06 19:13 | C.PDOC ---
History Of Present Illness 72 y/o male, with history of alcohol abuse, is brought to ED by BLS for alcohol intoxication. Pt is well known to ED staff for multiple prior visits for similar. Denies any active physical complaints at this time. Time Seen by Provider: 12/06/17 18:51 Chief Complaint (Nursing): Substance Abuse History Per: Patient History/Exam Limitations: no limitations Past Medical History Reviewed: Historical Data, Nursing Documentation, Vital Signs Vital Signs: Last Vital Signs Temp 98.5 F 12/06/17 18:51 Pulse 84 12/06/17 18:51 Resp 16 12/06/17 18:51 BP 110/75 12/06/17 18:51 Pulse Ox 96 12/06/17 19:13 - Medical History PMH: Anxiety, Asthma, Back Problems, Bipolar Disorder, Depression, Gastritis, HTN, Schizophrenia, Chronic Pain (Back Pain) Denies: Chronic Kidney Disease Surgical History: Hernia Repair, Tonsillectomy - [facility] Procedures DETOXIFICATION SERVICES FOR SUBSTANCE ABUSE TREATMENT (12/26/15) Family History: States: Unknown Family Hx - Social History Hx Tobacco Use: No Hx Alcohol Use: Yes Hx Substance Use: No - Immunization History Hx Tetanus Toxoid Vaccination: No Hx Influenza Vaccination: No Hx Pneumococcal Vaccination: No Review Of Systems Except As Marked, All Systems Reviewed And Found Negative. Constitutional: Negative for: Fever, Chills Cardiovascular: Negative for: Chest Pain, Palpitations Respiratory: Negative for: Shortness of Breath Gastrointestinal: Negative for: Nausea, Vomiting, Abdominal Pain Physical Exam - Physical Exam Appears: Non-toxic, No Acute Distress Skin: Normal Color, Warm, Dry Head: Atraumatic, Normacephalic Oral Mucosa: Moist, Other (EtOH on breath) Neck: Supple Cardiovascular: Rhythm Regular Respiratory: Normal Breath Sounds, No Rales, No Rhonchi, No Wheezing Gastrointestinal/Abdominal: Soft, No Tenderness Extremity: Bilateral: Atraumatic, Normal ROM Neurological/Psych: Oriented x3 ED Course And Treatment O2 Sat by Pulse Oximetry: 96 Pulse Ox Interpretation: Normal Disposition - Disposition Referrals: Alcoholics Anonymous [Outside] [facility] [Outside] [facility] [Outside] Disposition: HOME/ ROUTINE Disposition Time: 19:30 Condition: GOOD Additional Instructions: ZE PEARL, thank you for letting us take care of you today. Your provider was Marshall Passafaro DO and you were treated for SUBSTANCE ABUSE. The emergency medical care you received today was directed at your acute symptoms. If you were prescribed any medication, please fill it and take as directed. It may take several days for your symptoms to resolve. Return to the Emergency Department if your symptoms worsen, do not improve, or if you have any other problems. Please contact your doctor or call one of the physicians/clinics you have been referred to that are listed on the Patient Visit Information form that is included in your discharge packet. Bring any paperwork you were given at discharge with you along with any medications you are taking to your follow up visit. Our treatment cannot replace ongoing medical care by a primary care provider outside of the emergency department. Thank you for allowing the [facility] team to be part of your care today. Do not drink too much alcohol at once. Follow up with the clinic for outpatient care. Instructions: Alcohol Abuse and Alcoholism (DC) Forms: [employer] (Tajik) - Clinical Impression Clinical Impression: Alcohol abuse with intoxication - Scribe Statement The provider has reviewed the documentation as recorded by the Scribe KP All medical record entries made by the Scribe were at my direction and personally dictated by me. I have reviewed the chart and agree that the record accurately reflects my personal performance of the history, physical exam, medical decision making, and the department course for this patient. I have also personally directed, reviewed, and agree with the discharge instructions and disposition.
== END 2017-12-06 19:48 | disposition home or self-care (01) ==
LOC: C.ER 18:42
DX: F10.129 Alcohol abuse with intoxication, unspecified (principal); Y90.9 Presence of alcohol in blood, level not specified

== ENCOUNTER 2017-12-08 15:47 | Emergency (ER) | payer MEDICARE ==
[2017-12-08 15:47] VITALS: BMI 24.1
== END 2017-12-08 16:09 | disposition left against medical advice (07) ==
LOC: C.ER 15:47
DX: Z02.89 Encounter for other administrative examinations (principal); F19.10 Other psychoactive substance abuse, uncomplicated

== ENCOUNTER 2017-12-10 21:58 | Emergency (ER) | payer MEDICARE ==
[2017-12-10 21:58] VITALS: BMI 24.1
--- NOTE | 2017-12-10 22:37 | C.PDOC ---
History Of Present Illness 72yo male, well known to ER, brought to ER by EMS for evaluation as patient was noted to be publicly intoxicated. Patient offers no medical complaints. Time Seen by Provider: 12/10/17 22:00 Chief Complaint (Nursing): Substance Abuse History Per: Patient History/Exam Limitations: intoxication Modifying Factor(s): Alcohol Past Medical History Reviewed: Historical Data, Nursing Documentation, Vital Signs Vital Signs: Last Vital Signs Temp 98.3 F 12/10/17 22:00 Pulse 94 H 12/10/17 22:00 Resp 20 12/10/17 22:00 BP 117/76 12/10/17 22:00 Pulse Ox 93 L 12/10/17 23:58 - Medical History PMH: Anxiety, Asthma, Back Problems, Bipolar Disorder, Depression, Gastritis, HTN, Schizophrenia, Chronic Pain (Back Pain) Denies: Chronic Kidney Disease Surgical History: Hernia Repair, Tonsillectomy - [facility] Procedures DETOXIFICATION SERVICES FOR SUBSTANCE ABUSE TREATMENT (12/26/15) Family History: States: Unknown Family Hx - Social History Hx Tobacco Use: No Hx Alcohol Use: Yes Hx Substance Use: No - Immunization History Hx Tetanus Toxoid Vaccination: No Hx Influenza Vaccination: No Hx Pneumococcal Vaccination: No Review Of Systems Except As Marked, All Systems Reviewed And Found Negative. Constitutional: Negative for: Fever, Chills Cardiovascular: Negative for: Chest Pain Respiratory: Negative for: Shortness of Breath Gastrointestinal: Negative for: Vomiting Physical Exam - Physical Exam Appears: No Acute Distress Skin: Normal Color Head: Normacephalic Eye(s): bilateral: Normal Inspection Oral Mucosa: Other (alcohol on breath) Neck: Supple Cardiovascular: Rhythm Regular Respiratory: Normal Breath Sounds Gastrointestinal/Abdominal: Normal Exam, Soft, No Tenderness Back: Normal Inspection Extremity: Normal ROM Gait: Unsteady ED Course And Treatment O2 Sat by Pulse Oximetry: 93 (RA) Pulse Ox Interpretation: Abnormal Medical Decision Making Medical Decision Making: Assessment: Alcohol intoxication Plan: * Patient observed in ER pending sobriety 0 Repeat pulse Ox 95% on RA 0100 - case s/o Dr. Cheney pending sobriety. Disposition - Disposition Referrals: [facility] [Outside] Disposition: HOME/ ROUTINE Disposition Time: 00:02 Condition: IMPROVED Additional Instructions: follow up with medical clinic within 2 days call to make an appointment decrease alcohol use return to ER if symptoms worsens or progress Instructions: Alcohol Use - When Is Drinking a Problem? Forms: [facility] (Pashto), General Discharge Instructions - Clinical Impression Clinical Impression: Alcohol abuse with intoxication - Scribe Statement The provider has reviewed the documentation as recorded by the Omar Ramsey Provider Attestation: All medical record entries made by the Omar were at my direction and personally dictated by me. I have reviewed the chart and agree that the record accurately reflects my personal performance of the history, physical exam, medical decision making, and the department course for this patient. I have also personally directed, reviewed, and agree with the discharge instructions and disposition.
[2017-12-11 01:44] VITALS: RESP 16
[2017-12-11 05:35] VITALS: BP 150/81; PULSE 83; TEMP 98.4; O2SAT 95
== END 2017-12-11 05:50 | disposition home or self-care (01) ==
LOC: C.ER 21:58
DX: F10.129 Alcohol abuse with intoxication, unspecified (principal); Y90.9 Presence of alcohol in blood, level not specified

== ENCOUNTER 2017-12-11 17:49 | Emergency (ER) | payer MEDICARE ==
[2017-12-11 17:49] VITALS: BMI 24.1
[2017-12-11 18:03] VITALS: BP 115/77; PULSE 92; RESP 20; TEMP 98.9; O2SAT 94
--- NOTE | 2017-12-11 18:45 | C.PDOC ---
History Of Present Illness 72 y/o male, BIBA, due to public intoxication. The patient is well known by ED physicians for ETOH intoxication behavior. Upon arrival, he has mild AOB. He reports he is non compliant with his medication. The patient offers no medical complaints at this time. Time Seen by Provider: 12/11/17 18:44 Chief Complaint (Nursing): Substance Abuse History Per: Patient History/Exam Limitations: intoxication Modifying Factor(s): Alcohol Recent travel outside of the [place]: No Additional History Per: EMS Past Medical History Reviewed: Historical Data, Nursing Documentation, Vital Signs Vital Signs: Last Vital Signs Temp 98.9 F 12/11/17 18:04 Pulse 92 H 12/11/17 18:04 Resp 20 12/11/17 18:04 BP 115/77 12/11/17 18:04 Pulse Ox 94 L 12/11/17 18:45 - Medical History PMH: Anxiety, Asthma, Back Problems, Bipolar Disorder, Depression, Gastritis, HTN, Schizophrenia, Chronic Pain (Back Pain) Denies: Chronic Kidney Disease Surgical History: Hernia Repair, Tonsillectomy - [facility] Procedures DETOXIFICATION SERVICES FOR SUBSTANCE ABUSE TREATMENT (12/26/15) Family History: States: Unknown Family Hx - Social History Hx Tobacco Use: No Hx Alcohol Use: Yes Hx Substance Use: No - Immunization History Hx Tetanus Toxoid Vaccination: No Hx Influenza Vaccination: No Hx Pneumococcal Vaccination: No Review Of Systems Review Of Systems: ROS cannot be obtained secondary to pt's inabilty to answer questions. Constitutional: Negative for: Fever Physical Exam - Physical Exam Appears: Non-toxic, No Acute Distress Skin: Normal Color, Warm, Dry Head: Atraumatic, Normacephalic Eye(s): bilateral: PERRL, EOMI Ear(s): Bilateral: Normal Oral Mucosa: Moist Neck: Normal ROM Chest: Symmetrical Cardiovascular: Rhythm Regular, No Murmur Respiratory: Normal Breath Sounds, No Rales, No Rhonchi, No Wheezing Gastrointestinal/Abdominal: Soft, No Tenderness, No Distention Extremity: Normal ROM Extremity: Bilateral: Normal Color And Temperature, Normal ROM Neurological/Psych: Other (No gross focal deficits) Gait: Steady ED Course And Treatment O2 Sat by Pulse Oximetry: 94 (RA) Pulse Ox Interpretation: Normal Medical Decision Making Medical Decision Making: typical alcohol abuse, malingering no acute issues no acute changes from baseline. Disposition Doctor Will See Patient In The: Office Counseled Patient/Family Regarding: Studies Performed, Diagnosis - Disposition Referrals: Alcoholics Anonymous [Outside] [facility] [Outside] [facility] [Outside] [facility] [Outside] [facility] [Outside] [facility] [Outside] [place] [email or web address] [Outside] Disposition: HOME/ ROUTINE Disposition Time: 18:45 Condition: GOOD Additional Instructions: seek AA Seek nightly correction placement Instructions: Alcohol Abuse and Alcoholism (DC) Forms: [employer] (Kazakh) - Clinical Impression Clinical Impression: Alcohol abuse, Malingering - PA / AGATE SETTER / Resident Statement MD/DO has reviewed & agrees with the documentation as recorded. - Scribe Statement The provider has reviewed the documentation as recorded by the Scribe (Dominique Evans) Provider Attestation: All medical record entries made by the Scribe were at my direction and personally dictated by me. I have reviewed the chart and agree that the record accurately reflects my personal performance of the history, physical exam, medical decision making, and the department course for this patient. I have also personally directed, reviewed, and agree with the discharge instructions and disposition.
== END 2017-12-11 20:00 | disposition home or self-care (01) ==
LOC: C.ER 17:49
DX: F10.129 Alcohol abuse with intoxication, unspecified (principal); Y90.9 Presence of alcohol in blood, level not specified; Z76.5 Malingerer [conscious simulation]

== ENCOUNTER 2017-12-11 20:38 | Emergency (ER) | payer MEDICARE ==
[2017-12-11 20:38] VITALS: BMI 24.1
[2017-12-11 20:49] VITALS: BP 107/73; PULSE 84; RESP 18; TEMP 97.5; O2SAT 94
--- NOTE | 2017-12-11 21:02 | C.PDOC ---
History Of Present Illness 72 y/o male, BIBA, due to public intoxication. The patient is well known by ED physicians for ETOH intoxication behavior. Upon arrival, he has mild AOB. He reports he is non compliant with his medication. The patient offers no medical complaints at this time. Time Seen by Provider: 12/11/17 21:00 Chief Complaint (Nursing): Substance Abuse History Per: Patient History/Exam Limitations: intoxication Onset/Duration Of Symptoms: Hrs Modifying Factor(s): Alcohol Recent travel outside of the [place]: No Past Medical History Reviewed: Historical Data, Nursing Documentation, Vital Signs Vital Signs: Last Vital Signs Temp 97.5 F L 12/11/17 20:48 Pulse 84 12/11/17 20:48 Resp 18 12/11/17 20:48 BP 107/73 12/11/17 20:48 Pulse Ox 94 L 12/11/17 21:02 - Medical History PMH: Anxiety, Asthma, Back Problems, Bipolar Disorder, Depression, Gastritis, HTN, Schizophrenia, Chronic Pain (Back Pain) Denies: Chronic Kidney Disease Surgical History: Hernia Repair, Tonsillectomy - [facility] Procedures DETOXIFICATION SERVICES FOR SUBSTANCE ABUSE TREATMENT (12/26/15) Family History: States: Unknown Family Hx - Social History Hx Tobacco Use: No Hx Alcohol Use: Yes Hx Substance Use: No - Immunization History Hx Tetanus Toxoid Vaccination: No Hx Influenza Vaccination: No Hx Pneumococcal Vaccination: No Review Of Systems Review Of Systems: ROS cannot be obtained secondary to pt's inabilty to answer questions. Constitutional: Negative for: Fever Physical Exam - Physical Exam Appears: Well, Non-toxic, No Acute Distress Skin: Normal Color, Warm, Dry Head: Atraumatic, Normacephalic Eye(s): bilateral: PERRL, EOMI Ear(s): Bilateral: Normal Oral Mucosa: Moist Neck: Decreased ROM Chest: Symmetrical Cardiovascular: Rhythm Irregular, No Murmur Respiratory: Normal Breath Sounds, No Rales, No Rhonchi, No Wheezing Gastrointestinal/Abdominal: Soft, No Tenderness, No Distention Extremity: Normal ROM Extremity: Bilateral: Normal Color And Temperature, Normal ROM Neurological/Psych: Other (No gross focal deficits) Gait: Steady ED Course And Treatment O2 Sat by Pulse Oximetry: 94 (RA) Pulse Ox Interpretation: Normal Medical Decision Making Medical Decision Making: d/c less than 2 hrs ago no new ETOH intake since d/c no new injuries malingering Disposition Doctor Will See Patient In The: Office Counseled Patient/Family Regarding: Studies Performed, Diagnosis - Disposition Referrals: Alcoholics Anonymous [Outside] [facility] [Outside] [facility] [Outside] [facility] [Outside] [employer] [Outside] Disposition: HOME/ ROUTINE Disposition Time: 21:01 Condition: GOOD Additional Instructions: seek AA Seek nightly [place] [facility] placement. Instructions: Alcohol Abuse and Alcoholism (DC) Forms: [employer] (Mongolian) - Clinical Impression Clinical Impression: Alcohol abuse, Malingering, Homelessness - PA / MILLER ROD MILL / Resident Statement MD/DO has reviewed & agrees with the documentation as recorded. - Scribe Statement The provider has reviewed the documentation as recorded by the Scribe (Dominique Evans) Provider Attestation: All medical record entries made by the Scribe were at my direction and personally dictated by me. I have reviewed the chart and agree that the record accurately reflects my personal performance of the history, physical exam, medical decision making, and the department course for this patient. I have also personally directed, reviewed, and agree with the discharge instructions and disposition.
== END 2017-12-11 22:19 | disposition home or self-care (01) ==
LOC: C.ER 20:38
DX: F10.129 Alcohol abuse with intoxication, unspecified (principal); Y90.9 Presence of alcohol in blood, level not specified; Z76.5 Malingerer [conscious simulation]; Z59.0 Homelessness

== ENCOUNTER 2017-12-13 14:58 | Emergency (ER) | payer MEDICARE ==
[2017-12-13 14:59] VITALS: BMI 24.1
[2017-12-13 15:17] VITALS: BP 104/70; PULSE 90; RESP 16; TEMP 99.2; O2SAT 99
--- NOTE | 2017-12-13 15:34 | C.PDOC ---
History Of Present Illness 72 year old male is brought into the emergency department by ambulance for public intoxication and malingering. Time Seen by Provider: 12/13/17 15:18 Chief Complaint (Nursing): Substance Abuse History Per: Patient History/Exam Limitations: no limitations Onset/Duration Of Symptoms: Hrs Current Symptoms Are (Timing): Still Present Suicide/Self Injury Attempted (Context): None Modifying Factor(s): Alcohol Associated Symptoms: denies: Suicidal Thoughts, Suicidal Plan Involuntary Hold By: None Past Medical History Reviewed: Historical Data, Nursing Documentation, Vital Signs Vital Signs: Last Vital Signs Temp 99.2 F 12/13/17 15:15 Pulse 90 12/13/17 15:15 Resp 16 12/13/17 15:15 BP 104/70 12/13/17 15:15 Pulse Ox 99 12/13/17 15:34 - Medical History PMH: Anxiety, Asthma, Back Problems, Bipolar Disorder, Depression, Gastritis, HTN, Schizophrenia, Chronic Pain (Back Pain) Denies: Chronic Kidney Disease Surgical History: Hernia Repair, Tonsillectomy - [facility] Procedures DETOXIFICATION SERVICES FOR SUBSTANCE ABUSE TREATMENT (12/26/15) Family History: States: Unknown Family Hx - Social History Hx Tobacco Use: No Hx Alcohol Use: Yes Hx Substance Use: No - Immunization History Hx Tetanus Toxoid Vaccination: No Hx Influenza Vaccination: No Hx Pneumococcal Vaccination: No Review Of Systems Review Of Systems: ROS cannot be obtained secondary to pt's inabilty to answer questions. Physical Exam - Physical Exam Appears: Non-toxic, No Acute Distress, Unkempt (disheveled, foul-smelling, poor hygiene) Skin: Warm, Dry Head: Atraumatic, Normacephalic Eye(s): bilateral: Normal Inspection Oral Mucosa: Moist, Other (alcohol on breath) Neck: Normal, Supple Chest: Symmetrical Cardiovascular: Rhythm Regular, No Murmur Respiratory: Normal Breath Sounds, No Rales, No Rhonchi, No Wheezing Neurological/Psych: Oriented x3, Normal Speech, Normal Cognition ED Course And Treatment - Laboratory Results Lab Interpretation: Normal (POC 139 wnl) O2 Sat by Pulse Oximetry: 99 (RA) Pulse Ox Interpretation: Normal Medical Decision Making Medical Decision Making: baseline exam POC wnl no acute issues, nor change from baseline many prior evals for same. many by this provider alcohol abuse/malingering. Disposition Doctor Will See Patient In The: Office Counseled Patient/Family Regarding: Studies Performed, Diagnosis - Disposition Referrals: [facility] [Outside] [facility] [Outside] [facility] [Outside] [facility] [Outside] [facility] [Outside] Disposition: HOME/ ROUTINE Disposition Time: 15:34 Condition: GOOD Additional Instructions: seek help for your alcohol abuse Seek nightly care home placement. Instructions: Alcohol Abuse and Alcoholism (DC) Forms: [employer] (Australian) - Clinical Impression Clinical Impression: Alcohol abuse, Malingering - Scribe Statement The provider has reviewed the documentation as recorded by the Scribe (Saran Ruiz) Provider Attestation: All medical record entries made by the Scribe were at my direction and personally dictated by me. I have reviewed the chart and agree that the record accurately reflects my personal performance of the history, physical exam, medical decision making, and the department course for this patient. I have also personally directed, reviewed, and agree with the discharge instructions and disposition.
== END 2017-12-13 16:13 | disposition home or self-care (01) ==
LOC: C.ER 14:58
DX: F10.10 Alcohol abuse, uncomplicated (principal); Z76.5 Malingerer [conscious simulation]; F20.9 Schizophrenia, unspecified; F31.9 Bipolar disorder, unspecified; I10 Essential (primary) hypertension

== ENCOUNTER 2017-12-13 18:22 | Emergency (ER) | payer MEDICARE ==
[2017-12-13 18:23] VITALS: BMI 24.1
[2017-12-13 18:27] VITALS: BP 112/75; PULSE 77; RESP 20; TEMP 98.7; O2SAT 95
--- NOTE | 2017-12-13 18:44 | C.PDOC ---
History Of Present Illness 72 year old male is brought to the ED by EMS for evaluation of alcohol intoxication for an unknown duration. This current visit is patient's second ED visit today. He was discharged from this ED three hours earlier. Following discharge, patient was found in a driveway by EMS. He was ambulatory on scene and denies any further alcohol use today. Patient has no physical physical complaints at this time. Time Seen by Provider: 12/13/17 18:41 Chief Complaint (Nursing): Substance Abuse History Per: Patient, EMS History/Exam Limitations: intoxication Onset/Duration Of Symptoms: Hrs Current Symptoms Are (Timing): Still Present Suicide/Self Injury Attempted (Context): None Modifying Factor(s): Alcohol Severity: None Pain Scale Rating Of: 0 Associated Symptoms: denies: Suicidal Thoughts, Suicidal Plan Additional History Per: Patient, EMS Past Medical History Reviewed: Historical Data, Nursing Documentation, Vital Signs Vital Signs: Last Vital Signs Temp 98.7 F 12/13/17 18:24 Pulse 77 12/13/17 18:24 Resp 20 12/13/17 18:24 BP 112/75 12/13/17 18:24 Pulse Ox 95 12/13/17 18:44 - Medical History PMH: Anxiety, Asthma, Back Problems, Bipolar Disorder, Depression, Gastritis, HTN, Schizophrenia, Chronic Pain (Back Pain) Denies: Chronic Kidney Disease Surgical History: Hernia Repair, Tonsillectomy - [facility] Procedures DETOXIFICATION SERVICES FOR SUBSTANCE ABUSE TREATMENT (12/26/15) Family History: States: Unknown Family Hx - Social History Hx Tobacco Use: No Hx Alcohol Use: Yes Hx Substance Use: No - Immunization History Hx Tetanus Toxoid Vaccination: No Hx Influenza Vaccination: No Hx Pneumococcal Vaccination: No Review Of Systems Psych: Positive for: Other (alcohol intoxication ). Negative for: Suicidal ideation Physical Exam - Physical Exam Appears: Non-toxic, No Acute Distress, Other Skin: Warm, Dry Head: Normacephalic Eye(s): bilateral: Normal Inspection Oral Mucosa: Moist, Other (alcohol on breath) Neck: Supple Chest: Symmetrical, No Deformity, No Tenderness Cardiovascular: Rhythm Regular, No Murmur Respiratory: Normal Breath Sounds, No Rales, No Rhonchi, No Wheezing Male Genital: Testicular Swelling Extremity: Capillary Refill (less than 2 seconds ) Neurological/Psych: Other (arousable to touch and verbal stimuli ) ED Course And Treatment O2 Sat by Pulse Oximetry: 95 (on RA) Pulse Ox Interpretation: Normal Medical Decision Making Medical Decision Making: returned to ED by EMS for sleeping on someone's driveway ambulatory at the scene, no new injuries stable gait in ED malingering. Disposition Doctor Will See Patient In The: Office Counseled Patient/Family Regarding: Studies Performed, Diagnosis - Disposition Referrals: [email or web address] [Outside] [facility] [Outside] [facility] [Outside] Disposition: HOME/ ROUTINE Disposition Time: 18:44 Condition: GOOD Forms: General Discharge Instructions, [facility] (Wallisian) - Clinical Impression Clinical Impression: Homelessness, Malingering - PA / PULP GRINDER / Resident Statement MD/DO has reviewed & agrees with the documentation as recorded. - Scribe Statement The provider has reviewed the documentation as recorded by the Scribe Provider Attestation: All medical record entries made by the Scribe were at my direction and personally dictated by me. I have reviewed the chart and agree that the record accurately reflects my personal performance of the history, physical exam, medical decision making, and the department course for this patient. I have also personally directed, reviewed, and agree with the discharge instructions and disposition.
== END 2017-12-13 18:41 | disposition home or self-care (01) ==
LOC: C.ER 18:22
DX: Z59.0 Homelessness (principal); Z76.5 Malingerer [conscious simulation]; F20.9 Schizophrenia, unspecified; I10 Essential (primary) hypertension

== ENCOUNTER 2017-12-15 14:56 | Emergency (ER) | payer MEDICARE ==
[2017-12-15 14:57] VITALS: BMI 24.1
--- NOTE | 2017-12-15 15:19 | C.PDOC ---
History Of Present Illness 72 year old male is brought into the emergency department by EMS for public intoxication and alcohol use. Time Seen by Provider: 12/15/17 15:03 Chief Complaint (Nursing): Substance Abuse History Per: Patient History/Exam Limitations: no limitations Onset/Duration Of Symptoms: Hrs Current Symptoms Are (Timing): Still Present Suicide/Self Injury Attempted (Context): None Modifying Factor(s): Alcohol Associated Symptoms: denies: Suicidal Thoughts, Suicidal Plan Additional History Per: EMS Past Medical History Reviewed: Historical Data, Nursing Documentation, Vital Signs Vital Signs: Last Vital Signs Temp 97.8 F 12/15/17 15:25 Pulse 72 12/15/17 15:25 Resp 18 12/15/17 15:25 BP 95/64 L 12/15/17 15:25 Pulse Ox 98 12/15/17 15:25 - Medical History PMH: Anxiety, Asthma, Back Problems, Bipolar Disorder, Depression, Gastritis, HTN, Schizophrenia, Chronic Pain (Back Pain) Denies: Chronic Kidney Disease Surgical History: Hernia Repair, Tonsillectomy - [facility] Procedures DETOXIFICATION SERVICES FOR SUBSTANCE ABUSE TREATMENT (12/26/15) Family History: States: No Known Family Hx - Social History Hx Tobacco Use: No Hx Alcohol Use: Yes Hx Substance Use: No - Immunization History Hx Tetanus Toxoid Vaccination: No Hx Influenza Vaccination: No Hx Pneumococcal Vaccination: No Review Of Systems Review Of Systems: ROS cannot be obtained secondary to pt's inabilty to answer questions. Physical Exam - Physical Exam Additional Physical Exam Comments: Constitutional: No acute distress. Foul-smelling. Poor hygiene. Unkempt. Head: Normocephalic. Atraumatic. Eyes: PERRL. ENT: Moist mucous membranes. Oral Mucosa: Alcohol on breath. Neck: Supple. Cardiovascular: Regular rate. Radial pulse 2+ bilaterally. Chest: No tenderness. Respiratory: Clear to auscultation bilaterally. GI: Soft. Nontender. Nondistended. Back: No CVA tenderness. Musculoskeletal: No tenderness or swelling of extremities. Skin: No rash. Neurologic: No focal deficit. Medical Decision Making Medical Decision Making: Observed until sober with steady gait. Disposition - Disposition Disposition: HOME/ ROUTINE Disposition Time: 17:03 Condition: STABLE Instructions: Alcohol Abuse and Alcoholism (DC) Forms: [employer] (Romanian) - Clinical Impression Clinical Impression: Alcohol intoxication - Scribe Statement The provider has reviewed the documentation as recorded by the Scribe (Saran Ruiz) Provider Attestation: All medical record entries made by the Scribe were at my direction and personally dictated by me. I have reviewed the chart and agree that the record accurately reflects my personal performance of the history, physical exam, medical decision making, and the department course for this patient. I have also personally directed, reviewed, and agree with the discharge instructions and disposition.
[2017-12-15 15:26] VITALS: RESP 18; O2SAT 98
[2017-12-15 18:12] VITALS: BP 145/86; PULSE 89; TEMP 98
== END 2017-12-15 18:11 | disposition home or self-care (01) ==
LOC: C.ER 14:56
DX: F10.129 Alcohol abuse with intoxication, unspecified (principal); Y90.9 Presence of alcohol in blood, level not specified

== ENCOUNTER 2017-12-17 14:08 | Emergency (ER) | payer MEDICARE ==
[2017-12-17 14:08] VITALS: BMI 24.1
--- NOTE | 2017-12-17 14:39 | C.PDOC ---
History Of Present Illness 72 y/o male brought to ED by EMS for acute ETOH intoxication. Patient has multiple prior ED visits for substance abuse and at ED patient denies SI/HI or any other physical complaints at this time. Time Seen by Provider: 12/17/17 14:16 Chief Complaint (Nursing): Medical Clearance History Per: Patient, EMS History/Exam Limitations: no limitations Onset/Duration Of Symptoms: Days Current Symptoms Are (Timing): Still Present Past Medical History Reviewed: Historical Data, Nursing Documentation, Vital Signs Vital Signs: Last Vital Signs Temp 98.6 F 12/17/17 14:14 Pulse 87 12/17/17 14:14 Resp 16 12/17/17 14:14 BP 100/65 12/17/17 14:14 Pulse Ox 96 12/17/17 14:45 - Medical History PMH: Anxiety, Asthma, Back Problems, Bipolar Disorder, Depression, Gastritis, HTN, Schizophrenia, Chronic Pain (Back Pain) Surgical History: Hernia Repair, Tonsillectomy - [facility] Procedures DETOXIFICATION SERVICES FOR SUBSTANCE ABUSE TREATMENT (12/26/15) Family History: States: No Known Family Hx - Social History Hx Tobacco Use: No Hx Alcohol Use: Yes Hx Substance Use: No - Immunization History Hx Tetanus Toxoid Vaccination: No Hx Influenza Vaccination: No Hx Pneumococcal Vaccination: No Review Of Systems Except As Marked, All Systems Reviewed And Found Negative. Psych: Positive for: Other (substance abuse) Physical Exam - Physical Exam Appears: Non-toxic, No Acute Distress, Other (Malodorous, poor hygiene. ETOH on breath ) Skin: Warm, Dry, No Rash Head: Atraumatic, Normacephalic Eye(s): bilateral: Normal Inspection Oral Mucosa: Moist Neck: Supple Cardiovascular: Rhythm Regular Respiratory: Normal Breath Sounds, No Rales, No Rhonchi, No Wheezing Gastrointestinal/Abdominal: Soft, No Tenderness, No Guarding, No Rebound Extremity: Normal ROM, Capillary Refill (<2 seconds) Neurological/Psych: Oriented x3, Normal Speech, Normal Cognition ED Course And Treatment O2 Sat by Pulse Oximetry: 96 (RA) Pulse Ox Interpretation: Normal Medical Decision Making Medical Decision Making: Assessment: Alcoholism 1750 - patient awake, alert, ambulatory with steady gait. Will discharge home to follow up with medical clinic within 2 days Disposition Counseled Patient/Family Regarding: Studies Performed, Diagnosis - Disposition Disposition: HOME/ ROUTINE Disposition Time: 17:50 Condition: IMPROVED Additional Instructions: follow up with medical clinic within 2 days call to make an appointment decrease alcohol use return to ER if symptoms worsens or progress Instructions: Alcohol Abuse and Alcoholism (DC) Forms: Gen Discharge Inst Slovak, [facility] (Slovak) Print Language: TURKISH - Clinical Impression Clinical Impression: Alcohol abuse with intoxication - Scribe Statement The provider has reviewed the documentation as recorded by the Omar Jo All medical record entries made by the Omar were at my direction and personally dictated by me. I have reviewed the chart and agree that the record accurately reflects my personal performance of the history, physical exam, medical decision making, and the department course for this patient. I have also personally directed, reviewed, and agree with the discharge instructions and disposition.
[2017-12-17 18:13] VITALS: BP 136/89; PULSE 78; RESP 18; TEMP 98; O2SAT 98
== END 2017-12-17 18:13 | disposition home or self-care (01) ==
LOC: C.ER 14:08
DX: F10.129 Alcohol abuse with intoxication, unspecified (principal); Y90.9 Presence of alcohol in blood, level not specified

== ENCOUNTER 2017-12-18 17:22 | Emergency (ER) | payer MEDICARE ==
[2017-12-18 17:36] VITALS: BMI 26.6
--- NOTE | 2017-12-18 18:23 | C.PDOC ---
History Of Present Illness 72 y/o male brought in by EMS for public intoxication after he was found lying on the ground by a [employer]. Patient states that he last drank ETOH yesterday. Patient denies drug use, suicidal ideation, homicidal ideation, and active physical complaints. Chief Complaint (Nursing): Substance Abuse History Per: Patient History/Exam Limitations: no limitations Onset/Duration Of Symptoms: Days Current Symptoms Are (Timing): Still Present Severity: Moderate Past Medical History Reviewed: Historical Data, Nursing Documentation, Vital Signs Vital Signs: Last Vital Signs Temp 98.5 F 12/19/17 00:26 Pulse 82 12/19/17 00:26 Resp 18 12/19/17 00:26 BP 116/75 12/19/17 00:26 Pulse Ox 96 12/24/17 10:29 - Medical History PMH: Anxiety, Asthma, Back Problems, Bipolar Disorder, Depression, Gastritis, HTN, Schizophrenia, Chronic Pain (Back Pain) Denies: Chronic Kidney Disease Surgical History: Hernia Repair, Tonsillectomy - [facility] Procedures DETOXIFICATION SERVICES FOR SUBSTANCE ABUSE TREATMENT (12/26/15) Family History: States: No Known Family Hx - Social History Hx Tobacco Use: No Hx Alcohol Use: Yes Hx Substance Use: No - Immunization History Hx Tetanus Toxoid Vaccination: No Hx Influenza Vaccination: No Hx Pneumococcal Vaccination: No Review Of Systems Except As Marked, All Systems Reviewed And Found Negative. Physical Exam - Physical Exam Appears: No Acute Distress, Other (unkempt) Skin: Normal Color, Warm, Dry Head: Atraumatic, Normacephalic Eye(s): bilateral: Normal Inspection Nose: Normal Oral Mucosa: Moist Neck: Supple Chest: Symmetrical Cardiovascular: Rhythm Regular Respiratory: Normal Breath Sounds, No Rales, No Rhonchi, No Wheezing Gastrointestinal/Abdominal: Normal Exam, Soft, No Tenderness, No Guarding, No Rebound Extremity: Normal ROM, Other (no signs of protonator drift) Neurological/Psych: Oriented x3, Normal Speech ED Course And Treatment O2 Sat by Pulse Oximetry: 96 (RA) Pulse Ox Interpretation: Normal Medical Decision Making Medical Decision Making: Impression: ETOH Abuse Plan: --Glucose, POC Disposition - Disposition Referrals: [facility] [Outside] [facility] [Outside] Disposition: HOME/ ROUTINE Disposition Time: 12:27 Condition: GOOD Additional Instructions: ZE PEARL, thank you for letting us take care of you today. The emergency medical care you received today was directed at your acute symptoms. If you were prescribed any medication, please fill it and take as directed. It may take several days for your symptoms to resolve. Return to the Emergency Department if your symptoms worsen, do not improve, or if you have any other problems. Please contact your doctor or call one of the physicians/clinics you have been referred to that are listed on the Patient Visit Information form that is included in your discharge packet. Bring any paperwork you were given at discharge with you along with any medications you are taking to your follow up visit. Our treatment cannot replace ongoing medical care by a primary care provider outside of the emergency department. Thank you for allowing the [facility] team to be part of your care today. Follow up in the clinic this week. Instructions: Alcohol Abuse and Alcoholism (DC) Forms: [employer] (Greek) - Clinical Impression Clinical Impression: Intoxication - Scribe Statement The provider has reviewed the documentation as recorded by the Omar Brock Provider Attestation: All medical record entries made by the Augustaibjackelyn were at my direction and personally dictated by me. I have reviewed the chart and agree that the record accurately reflects my personal performance of the history, physical exam, medical decision making, and the department course for this patient. I have also personally directed, reviewed, and agree with the discharge instructions and disposition.
[2017-12-19 00:27] VITALS: BP 116/75; PULSE 82; RESP 18; TEMP 98.5
[2017-12-24 10:28] VITALS: O2SAT 96
== END 2017-12-19 00:27 | disposition home or self-care (01) ==
LOC: C.ER 17:22
DX: F10.129 Alcohol abuse with intoxication, unspecified (principal); F20.9 Schizophrenia, unspecified; I10 Essential (primary) hypertension

== ENCOUNTER 2017-12-20 17:37 | Emergency (ER) | payer MEDICARE ==
[2017-12-20 17:37] VITALS: BMI 26.6
--- NOTE | 2017-12-20 17:58 | C.PDOC ---
History Of Present Illness 72 y/o male is brought to ED via EMS for public intoxication. Pt is well known to ED staff for multiple prior visits for acute alcohol intoxication. Denies any active complaints at this time. Time Seen by Provider: 12/20/17 17:38 Chief Complaint (Nursing): Substance Abuse History Per: Patient History/Exam Limitations: no limitations Past Medical History Reviewed: Historical Data, Nursing Documentation, Vital Signs Vital Signs: Last Vital Signs Temp 98.2 F 12/20/17 19:54 Pulse 74 12/20/17 19:54 Resp 18 12/20/17 19:54 BP 118/73 12/20/17 19:54 Pulse Ox 98 12/20/17 19:54 - Medical History PMH: Anxiety, Asthma, Back Problems, Bipolar Disorder, Depression, Gastritis, HTN, Schizophrenia, Chronic Pain (Back Pain) Denies: Chronic Kidney Disease Surgical History: Hernia Repair, Tonsillectomy - [facility] Procedures DETOXIFICATION SERVICES FOR SUBSTANCE ABUSE TREATMENT (12/26/15) Family History: States: Unknown Family Hx - Social History Hx Tobacco Use: No Hx Alcohol Use: Yes Hx Substance Use: No - Immunization History Hx Tetanus Toxoid Vaccination: No Hx Influenza Vaccination: No Hx Pneumococcal Vaccination: No Review Of Systems Except As Marked, All Systems Reviewed And Found Negative. Constitutional: Negative for: Fever, Chills Cardiovascular: Negative for: Chest Pain, Palpitations Respiratory: Negative for: Shortness of Breath Physical Exam - Physical Exam Appears: Non-toxic, No Acute Distress Skin: Normal Color, Warm, Dry Head: Atraumatic, Normacephalic Eye(s): bilateral: Normal Inspection Oral Mucosa: Moist, Other (ETOH on breath) Cardiovascular: Rhythm Regular Respiratory: Normal Breath Sounds, No Rales, No Rhonchi, No Wheezing Gastrointestinal/Abdominal: Soft, No Tenderness Extremity: Normal ROM Neurological/Psych: Oriented x3 Medical Decision Making Medical Decision Making: known etoh abuse malingering. pt observed for clinical sobriety.slept through ed course. observed ambulating out of er in nad. Disposition - Disposition Referrals: [facility] [Outside] Disposition: HOME/ ROUTINE Disposition Time: 07:00 Condition: STABLE Instructions: Alcohol Use - When Is Drinking a Problem?, Alcohol Abuse and Alcoholism (DC) Forms: [employer] (Martiniquais) - Clinical Impression Clinical Impression: Homelessness, Alcohol abuse, Malingering - Scribe Statement The provider has reviewed the documentation as recorded by the Scribe KP All medical record entries made by the Scribe were at my direction and personally dictated by me. I have reviewed the chart and agree that the record accurately reflects my personal performance of the history, physical exam, medical decision making, and the department course for this patient. I have also personally directed, reviewed, and agree with the discharge instructions and disposition.
[2017-12-20 19:55] VITALS: BP 118/73; PULSE 74; RESP 18; TEMP 98.2; O2SAT 98
== END 2017-12-20 19:55 | disposition home or self-care (01) ==
LOC: C.ER 17:37
DX: F10.129 Alcohol abuse with intoxication, unspecified (principal); Y90.9 Presence of alcohol in blood, level not specified; Z76.5 Malingerer [conscious simulation]; Z59.0 Homelessness

== ENCOUNTER 2017-12-23 16:16 | Emergency (ER) | payer MEDICARE ==
[2017-12-23 16:16] VITALS: BMI 26.6
[2017-12-23 16:27] VITALS: O2SAT 98
--- NOTE | 2017-12-23 18:02 | C.PDOC ---
History Of Present Illness 72yo male, brought to ER by EMS for evaluation after he was found publicly intoxicated. Patient well known to provider and staff due to multiple ER visits with similar complaints. At present, patient offers no medical complaints. Time Seen by Provider: 12/23/17 17:07 Chief Complaint (Nursing): Substance Abuse History Per: EMS History/Exam Limitations: no limitations Modifying Factor(s): Alcohol Past Medical History Reviewed: Historical Data, Nursing Documentation, Vital Signs Vital Signs: Last Vital Signs Temp 98.4 F 12/23/17 16:25 Pulse 105 H 12/23/17 16:25 Resp 18 12/23/17 16:25 BP 97/62 L 12/23/17 16:25 Pulse Ox 98 12/23/17 18:50 - Medical History PMH: Anxiety, Asthma, Back Problems, Bipolar Disorder, Depression, Gastritis, HTN, Schizophrenia, Chronic Pain (Back Pain) Denies: Chronic Kidney Disease Surgical History: Hernia Repair, Tonsillectomy - [facility] Procedures DETOXIFICATION SERVICES FOR SUBSTANCE ABUSE TREATMENT (12/26/15) Family History: States: No Known Family Hx - Social History Hx Tobacco Use: No Hx Alcohol Use: Yes Hx Substance Use: No - Immunization History Hx Tetanus Toxoid Vaccination: No Hx Influenza Vaccination: No Hx Pneumococcal Vaccination: No Review Of Systems Except As Marked, All Systems Reviewed And Found Negative. Constitutional: Negative for: Fever Cardiovascular: Negative for: Chest Pain Respiratory: Negative for: Shortness of Breath Gastrointestinal: Negative for: Abdominal Pain Physical Exam - Physical Exam Appears: No Acute Distress Skin: Normal Color Head: Normacephalic Eye(s): bilateral: Normal Inspection Neck: Normal ROM, Supple Chest: Symmetrical Cardiovascular: Rhythm Regular Respiratory: Normal Breath Sounds Neurological/Psych: Oriented x3 ED Course And Treatment O2 Sat by Pulse Oximetry: 98 (RA) Pulse Ox Interpretation: Normal Medical Decision Making Medical Decision Making: Assessment: Substance abuse Plan: Patient observed in ER pending clinical sobriety. Disposition - Disposition Disposition Time: 19:00 Condition: STABLE Forms: [facility] (Citizen Of [place]) - Clinical Impression Clinical Impression: Intoxication - Scribe Statement The provider has reviewed the documentation as recorded by the Omar Ramsey Provider Attestation: All medical record entries made by the Scribe were at my direction and personally dictated by me. I have reviewed the chart and agree that the record accurately reflects my personal performance of the history, physical exam, medical decision making, and the department course for this patient. I have also personally directed, reviewed, and agree with the discharge instructions and disposition. Physician Patient Turnover Patient Signed Over To: Jb Riddle Handoff Comments: pending sobriety, reevaluation and disposition
[2017-12-24 05:07] VITALS: BP 101/78; PULSE 78; RESP 20; TEMP 98
== END 2017-12-24 05:08 | disposition home or self-care (01) ==
LOC: C.ER 16:16
DX: F10.129 Alcohol abuse with intoxication, unspecified (principal); I10 Essential (primary) hypertension; F20.9 Schizophrenia, unspecified

== ENCOUNTER 2017-12-24 20:58 | Emergency (ER) | payer MEDICARE ==
[2017-12-24 20:59] VITALS: BMI 26.6
[2017-12-24 22:00] VITALS: RESP 14; TEMP 98.5
--- NOTE | 2017-12-24 23:36 | C.PDOC ---
History Of Present Illness 72 year old male is brought to the ED by EMS for alcohol intoxication. Patient admits to drinking alcohol today, has multiple visits to the ED for the same. Patient denies SI/HI, hallucinations, trauma, injury, other complaints. Time Seen by Provider: 12/24/17 23:34 Chief Complaint (Nursing): Substance Abuse History Per: Patient, EMS History/Exam Limitations: intoxication Onset/Duration Of Symptoms: Hrs Current Symptoms Are (Timing): Still Present Suicide/Self Injury Attempted (Context): None Modifying Factor(s): Alcohol Associated Symptoms: denies: Depression, Suicidal Thoughts, Suicidal Plan Recent travel outside of the [place]: No Additional History Per: Patient, EMS Past Medical History Reviewed: Historical Data, Nursing Documentation, Vital Signs Vital Signs: Last Vital Signs Temp 98.5 F 12/25/17 01:09 Pulse 85 12/25/17 01:09 Resp 14 12/25/17 01:09 BP 122/78 12/25/17 01:09 Pulse Ox 97 12/25/17 01:09 - Medical History PMH: Anxiety, Asthma, Back Problems, Bipolar Disorder, Depression, Gastritis, HTN, Schizophrenia, Chronic Pain (Back Pain) Denies: Chronic Kidney Disease Surgical History: Hernia Repair, Tonsillectomy - [facility] Procedures DETOXIFICATION SERVICES FOR SUBSTANCE ABUSE TREATMENT (12/26/15) Family History: States: Unknown Family Hx - Social History Hx Tobacco Use: No Hx Alcohol Use: Yes Hx Substance Use: No - Immunization History Hx Tetanus Toxoid Vaccination: No Hx Influenza Vaccination: No Hx Pneumococcal Vaccination: No Review Of Systems Constitutional: Negative for: Fever, Chills Cardiovascular: Negative for: Chest Pain Respiratory: Negative for: Cough Gastrointestinal: Negative for: Nausea, Vomiting Psych: Negative for: Depression, Suicidal ideation Physical Exam - Physical Exam Appears: Non-toxic, No Acute Distress Skin: Warm, Dry Head: Normacephalic Eye(s): bilateral: Normal Inspection Neck: Supple Chest: Symmetrical Cardiovascular: Rhythm Regular Respiratory: No Rales, No Rhonchi, No Wheezing Gastrointestinal/Abdominal: Soft, No Tenderness, No Guarding, No Rebound Extremity: Bilateral: Atraumatic, Normal Color And Temperature, Normal ROM Neurological/Psych: Oriented x3, Normal Speech Gait: Steady ED Course And Treatment O2 Sat by Pulse Oximetry: 96 (ON RA) Pulse Ox Interpretation: Normal Reevaluation Time: 04:58 Reassessment Condition: Improved Disposition Counseled Patient/Family Regarding: Studies Performed, Diagnosis, Need For Followup - Disposition Referrals: [facility] at [facility] [Outside] Disposition: HOME/ ROUTINE Disposition Time: 04:58 Condition: FAIR Instructions: Alcohol Abuse and Alcoholism (DC) Forms: [employer] (Polish) - Clinical Impression Clinical Impression: Alcohol abuse with intoxication - Scribe Statement The provider has reviewed the documentation as recorded by the Scribe Eulogio Sanchez All medical record entries made by the Scribe were at my direction and personally dictated by me. I have reviewed the chart and agree that the record accurately reflects my personal performance of the history, physical exam, medical decision making, and the department course for this patient. I have also personally directed, reviewed, and agree with the discharge instructions and disposition.
[2017-12-25 01:10] VITALS: BP 122/78; PULSE 85
[2017-12-25 04:58] VITALS: O2SAT 96
== END 2017-12-25 05:18 | disposition home or self-care (01) ==
LOC: C.ER 20:58
DX: F10.129 Alcohol abuse with intoxication, unspecified (principal); Y90.9 Presence of alcohol in blood, level not specified

== ENCOUNTER 2017-12-26 17:04 | Emergency (ER) | payer MEDICARE ==
[2017-12-26 17:05] VITALS: BMI 26.6
--- NOTE | 2017-12-26 17:43 | C.PDOC ---
History Of Present Illness 72 y/o male, with Hx of alcohol abuse, is brought in by EMS for acute alcohol intoxication. Pt is well known to ED staff for multiple prior visits for public intoxication. Denies any active physical complaints. Time Seen by Provider: 12/26/17 17:08 Chief Complaint (Nursing): Substance Abuse History Per: Patient History/Exam Limitations: no limitations Past Medical History Reviewed: Historical Data, Nursing Documentation, Vital Signs Vital Signs: Last Vital Signs Temp 97.9 F 12/26/17 17:13 Pulse 74 12/26/17 17:13 Resp 20 12/26/17 17:13 BP 101/67 12/26/17 17:13 Pulse Ox 95 12/26/17 18:37 - Medical History PMH: Anxiety, Asthma, Back Problems, Bipolar Disorder, Depression, Gastritis, HTN, Schizophrenia, Chronic Pain (Back Pain) Denies: Chronic Kidney Disease Surgical History: Hernia Repair, Tonsillectomy - [facility] Procedures DETOXIFICATION SERVICES FOR SUBSTANCE ABUSE TREATMENT (12/26/15) Family History: States: Unknown Family Hx - Social History Hx Tobacco Use: No Hx Alcohol Use: Yes Hx Substance Use: No - Immunization History Hx Tetanus Toxoid Vaccination: No Hx Influenza Vaccination: No Hx Pneumococcal Vaccination: No Review Of Systems Except As Marked, All Systems Reviewed And Found Negative. Constitutional: Negative for: Fever, Chills Cardiovascular: Negative for: Chest Pain Respiratory: Negative for: Shortness of Breath Physical Exam - Physical Exam Appears: Non-toxic, No Acute Distress Skin: Normal Color, Warm, Dry Head: Atraumatic, Normacephalic Eye(s): bilateral: Normal Inspection Oral Mucosa: Moist, Other (EtOH on breath) Cardiovascular: Rhythm Regular Respiratory: Normal Breath Sounds, No Rales, No Rhonchi, No Wheezing Gastrointestinal/Abdominal: Soft, No Tenderness Extremity: Normal ROM Neurological/Psych: Oriented x3 ED Course And Treatment O2 Sat by Pulse Oximetry: 95 Pulse Ox Interpretation: Normal Medical Decision Making Medical Decision Making: Plan: Glucose check Assessment: alcohol intoxication case s/o to Dr. Riddle pending sobriety, reevaluation and disposition Disposition - Disposition Disposition Time: 19:00 Condition: STABLE Forms: [employer] (Nepali) - Clinical Impression Clinical Impression: Intoxication - Scribe Statement The provider has reviewed the documentation as recorded by the Scribe KP All medical record entries made by the Scribe were at my direction and personally dictated by me. I have reviewed the chart and agree that the record accurately reflects my personal performance of the history, physical exam, medical decision making, and the department course for this patient. I have also personally directed, reviewed, and agree with the discharge instructions and disposition. Physician Patient Turnover Patient Signed Over To: Jb Riddle
[2017-12-26 22:51] VITALS: TEMP 98.4
[2017-12-27 05:22] VITALS: BP 131/75; PULSE 81; RESP 18; O2SAT 99
== END 2017-12-27 05:22 | disposition home or self-care (01) ==
LOC: C.ER 17:04
DX: F10.129 Alcohol abuse with intoxication, unspecified (principal); F20.9 Schizophrenia, unspecified; I10 Essential (primary) hypertension

== ENCOUNTER 2017-12-31 21:55 | Emergency (ER) | payer MEDICARE ==
[2017-12-31 21:55] VITALS: BMI 26.6
[2017-12-31 23:05] VITALS: TEMP 98; O2SAT 98
--- NOTE | 2017-12-31 23:18 | C.PDOC ---
History Of Present Illness 72 year old male is brought to the ED by EMS for alcohol intoxication. Patient reports he has been drinking all day today, is tired and need a place to stay. Patient denies SI/HI, hallucinations, other complaints. Time Seen by Provider: 12/31/17 23:16 Chief Complaint (Nursing): Substance Abuse History Per: Patient History/Exam Limitations: intoxication Onset/Duration Of Symptoms: Hrs Current Symptoms Are (Timing): Still Present Suicide/Self Injury Attempted (Context): None Modifying Factor(s): Alcohol Associated Symptoms: denies: Depression, Suicidal Thoughts, Suicidal Plan Recent travel outside of the [place]: No Additional History Per: Patient Past Medical History Reviewed: Historical Data, Nursing Documentation, Vital Signs Vital Signs: Last Vital Signs Temp 98 F 12/31/17 23:00 Pulse 86 12/31/17 23:00 Resp 18 12/31/17 23:00 BP 126/85 12/31/17 23:00 Pulse Ox 98 12/31/17 23:24 - Medical History PMH: Anxiety, Asthma, Back Problems, Bipolar Disorder, Depression, Gastritis, HTN, Schizophrenia, Chronic Pain (Back Pain) Denies: Chronic Kidney Disease Surgical History: Hernia Repair, Tonsillectomy - [facility] Procedures DETOXIFICATION SERVICES FOR SUBSTANCE ABUSE TREATMENT (12/26/15) Family History: States: Unknown Family Hx - Social History Hx Tobacco Use: No Hx Alcohol Use: Yes Hx Substance Use: No - Immunization History Hx Tetanus Toxoid Vaccination: No Hx Influenza Vaccination: No Hx Pneumococcal Vaccination: No Review Of Systems Constitutional: Negative for: Fever, Chills Cardiovascular: Negative for: Chest Pain Respiratory: Negative for: Shortness of Breath Gastrointestinal: Negative for: Nausea, Vomiting Psych: Negative for: Depression, Suicidal ideation Physical Exam - Physical Exam Appears: Non-toxic, No Acute Distress Skin: Warm, Dry Head: Normacephalic Eye(s): bilateral: Normal Inspection Chest: Symmetrical Cardiovascular: Rhythm Regular Respiratory: No Rales, No Rhonchi, No Wheezing Gastrointestinal/Abdominal: Soft, No Tenderness, No Guarding, No Rebound Extremity: No Tenderness, No Swelling Extremity: Bilateral: Atraumatic, Normal Color And Temperature, Normal ROM Neurological/Psych: Oriented x3, Normal Speech Gait: Steady ED Course And Treatment O2 Sat by Pulse Oximetry: 98 (ON RA) Pulse Ox Interpretation: Normal Reevaluation Time: 05:12 Reassessment Condition: Improved Disposition Counseled Patient/Family Regarding: Studies Performed, Diagnosis - Disposition Referrals: [facility] [Outside] Disposition: HOME/ ROUTINE Disposition Time: 23:17 Condition: FAIR Instructions: Alcohol Abuse and Alcoholism (DC) Forms: [facility] (Iraqi) - Clinical Impression Clinical Impression: Alcohol abuse with intoxication - Scribe Statement The provider has reviewed the documentation as recorded by the Scribe Eulogio Sanchez All medical record entries made by the Scribe were at my direction and personally dictated by me. I have reviewed the chart and agree that the record accurately reflects my personal performance of the history, physical exam, medical decision making, and the department course for this patient. I have also personally directed, reviewed, and agree with the discharge instructions and disposition.
[2018-01-01 05:48] VITALS: BP 140/84; PULSE 80; RESP 20
== END 2018-01-01 05:30 | disposition home or self-care (01) ==
LOC: SUPCPDRO 21:55 → C.ER 21:55
DX: F10.129 Alcohol abuse with intoxication, unspecified (principal); Y90.9 Presence of alcohol in blood, level not specified

== ENCOUNTER 2018-01-02 16:33 | Emergency (ER) | payer MEDICARE ==
[2018-01-02 16:34] VITALS: BMI 26.6
--- NOTE | 2018-01-02 17:26 | C.PDOC ---
History Of Present Illness 72 y/o male, with Hx of alcohol abuse, is brought to ED via BLS for acute alcohol intoxication. Pt is well known to ED staff for multiple prior visits for similar. Otherwise, denies any active physical complaints at this time. Time Seen by Provider: 01/02/18 17:22 Chief Complaint (Nursing): Substance Abuse History Per: Patient History/Exam Limitations: no limitations Onset/Duration Of Symptoms: Gradual Current Symptoms Are (Timing): Still Present Suicide/Self Injury Attempted (Context): None Modifying Factor(s): Alcohol Severity: None Pain Scale Rating Of: 0 Associated Symptoms: denies: Suicidal Thoughts, Suicidal Plan Involuntary Hold By: None Recent travel outside of the [place]: No Additional History Per: Prior Records Past Medical History Reviewed: Historical Data, Nursing Documentation, Vital Signs Vital Signs: Last Vital Signs Temp 98 F 01/02/18 16:53 Pulse 85 01/02/18 16:53 Resp 18 01/02/18 16:53 BP 123/74 01/02/18 16:53 Pulse Ox 96 01/02/18 17:55 - Medical History PMH: Anxiety, Asthma, Back Problems, Bipolar Disorder, Depression, Gastritis, HTN, Schizophrenia, Chronic Pain (Back Pain) Denies: Chronic Kidney Disease Surgical History: Hernia Repair, Tonsillectomy - [facility] Procedures DETOXIFICATION SERVICES FOR SUBSTANCE ABUSE TREATMENT (12/26/15) Family History: States: Unknown Family Hx - Social History Hx Tobacco Use: No Hx Alcohol Use: Yes Hx Substance Use: No - Immunization History Hx Tetanus Toxoid Vaccination: No Hx Influenza Vaccination: No Hx Pneumococcal Vaccination: No Review Of Systems Except As Marked, All Systems Reviewed And Found Negative. Constitutional: Negative for: Fever, Chills Cardiovascular: Negative for: Chest Pain, Palpitations Respiratory: Negative for: Cough, Shortness of Breath Gastrointestinal: Negative for: Nausea, Vomiting, Abdominal Pain Neurological: Negative for: Headache, Dizziness Physical Exam - Physical Exam Appears: Non-toxic, No Acute Distress, Other (EtOH on breath) Skin: Normal Color, Warm, Dry Head: Atraumatic, Normacephalic Eye(s): bilateral: Normal Inspection Oral Mucosa: Moist Neck: Normal ROM, Supple Cardiovascular: Rhythm Regular Respiratory: Normal Breath Sounds, No Rales, No Rhonchi, No Wheezing Gastrointestinal/Abdominal: Soft, No Tenderness Extremity: Normal ROM Neurological/Psych: Oriented x3 Gait: Unsteady ED Course And Treatment O2 Sat by Pulse Oximetry: 96 (on RA) Pulse Ox Interpretation: Normal Medical Decision Making Medical Decision Making: On re-eval, pt is resting comfortably in bed. No acute distress. Disposition - Disposition Disposition Time: 19:00 Condition: FAIR Forms: [facility] (Chinese) - Clinical Impression Clinical Impression: Alcohol abuse with intoxication - PA / RESIDENTIAL FEE APPRAISER / Resident Statement MD/DO has reviewed & agrees with the documentation as recorded. - Scribe Statement The provider has reviewed the documentation as recorded by the Scribe KP All medical record entries made by the Scribe were at my direction and personally dictated by me. I have reviewed the chart and agree that the record accurately reflects my personal performance of the history, physical exam, medical decision making, and the department course for this patient. I have also personally directed, reviewed, and agree with the discharge instructions and disposition. Physician Patient Turnover Patient Signed Over To: Jb Riddle Handoff Comments: pending sobriety
[2018-01-02 23:21] VITALS: TEMP 98.5
[2018-01-03 03:49] VITALS: BP 118/70; PULSE 80; RESP 16; O2SAT 96
== END 2018-01-03 05:37 | disposition home or self-care (01) ==
LOC: C.ER 16:33
DX: F10.129 Alcohol abuse with intoxication, unspecified (principal); Y90.9 Presence of alcohol in blood, level not specified

== ENCOUNTER 2018-01-13 13:26 | Emergency (ER) | payer MEDICARE ==
[2018-01-13 13:26] VITALS: BMI 26.6
[2018-01-13 13:30] VITALS: BP 111/83; PULSE 91; RESP 18; TEMP 97.7; O2SAT 94
--- NOTE | 2018-01-13 14:17 | C.PDOC ---
History Of Present Illness 72 y/o male brought to ED by EMS for acute ETOH intoxication. Patient found on street with unsteady gait. At ED patient admits to drinking ETOH, denies SI/HI or any other complaints at this time. Time Seen by Provider: 01/13/18 13:44 Chief Complaint (Nursing): Substance Abuse History Per: Patient History/Exam Limitations: no limitations Onset/Duration Of Symptoms: Days Current Symptoms Are (Timing): Still Present Suicide/Self Injury Attempted (Context): None Modifying Factor(s): Alcohol Past Medical History Reviewed: Historical Data, Nursing Documentation, Vital Signs Vital Signs: Last Vital Signs Temp 97.7 F 01/13/18 13:29 Pulse 91 H 01/13/18 13:29 Resp 18 01/13/18 13:29 BP 111/83 01/13/18 13:29 Pulse Ox 94 L 01/13/18 17:56 - Medical History PMH: Anxiety, Asthma, Back Problems, Bipolar Disorder, Depression, Gastritis, HTN, Schizophrenia, Chronic Pain (Back Pain) Surgical History: Hernia Repair, Tonsillectomy - [facility] Procedures DETOXIFICATION SERVICES FOR SUBSTANCE ABUSE TREATMENT (12/26/15) Family History: States: No Known Family Hx - Social History Hx Tobacco Use: No Hx Alcohol Use: Yes Hx Substance Use: No - Immunization History Hx Tetanus Toxoid Vaccination: No Hx Influenza Vaccination: No Hx Pneumococcal Vaccination: No Review Of Systems Constitutional: Negative for: Fever, Chills Cardiovascular: Negative for: Chest Pain Respiratory: Negative for: Shortness of Breath Gastrointestinal: Negative for: Nausea, Vomiting Psych: Positive for: Other (Substance abuse). Negative for: Suicidal ideation, Withdrawal Physical Exam - Physical Exam Appears: Non-toxic, No Acute Distress, Other (Malodorus, poor hygiene) Skin: Warm, Dry, No Rash Head: Atraumatic, Normacephalic Eye(s): bilateral: Normal Inspection Oral Mucosa: Moist Neck: Supple Cardiovascular: Rhythm Regular Respiratory: Normal Breath Sounds, No Rales, No Rhonchi, No Wheezing Gastrointestinal/Abdominal: Soft, No Tenderness, No Guarding, No Rebound Neurological/Psych: Oriented x3, Normal Speech, Normal Cognition ED Course And Treatment O2 Sat by Pulse Oximetry: 94 (RA) Pulse Ox Interpretation: Normal Medical Decision Making Medical Decision Making: Assessment: ETOH abuse Progress: Patient aaox3, eating sandwich comfortably. 17:50- Patient waling with steady gait, discharged Disposition - Disposition Referrals: [facility] [Outside] Disposition: HOME/ ROUTINE Disposition Time: 17:54 Condition: STABLE Additional Instructions: follow up with medical clinic within 2 days call to make an appointment return to ER if symptoms worsens or progress decrease your alcohol use Instructions: Alcohol Abuse and Alcoholism (DC) Forms: [facility] (Hebrew), General Discharge Instructions - Clinical Impression Clinical Impression: Alcohol abuse - Scribe Statement The provider has reviewed the documentation as recorded by the Scribjackelyn Jo All medical record entries made by the Augustaibjackelyn were at my direction and personally dictated by me. I have reviewed the chart and agree that the record accurately reflects my personal performance of the history, physical exam, medical decision making, and the department course for this patient. I have also personally directed, reviewed, and agree with the discharge instructions and disposition.
== END 2018-01-13 18:08 | disposition home or self-care (01) ==
LOC: C.ER 13:26
DX: F10.10 Alcohol abuse, uncomplicated (principal); Y90.9 Presence of alcohol in blood, level not specified

== ENCOUNTER 2018-01-15 21:59 | Emergency (ER) | payer MEDICARE ==
[2018-01-15 22:00] VITALS: BMI 26.6
[2018-01-15 22:07] VITALS: BP 116/74; PULSE 64; RESP 16; TEMP 98.5; O2SAT 99
--- NOTE | 2018-01-16 02:03 | C.PDOC ---
History Of Present Illness 72 y/o male, JUSTO, presents to the ED for ETOH intoxication. The patient admits to drinking earlier today. He denies any SI/HI. The patient offers no medical complaints at this time. Time Seen by Provider: 01/15/18 22:06 Chief Complaint (Nursing): Substance Abuse History Per: Patient History/Exam Limitations: intoxication Recent travel outside of the [place]: No Past Medical History Reviewed: Historical Data, Nursing Documentation, Vital Signs Vital Signs: Last Vital Signs Temp 98.5 F 01/15/18 22:06 Pulse 64 01/15/18 22:06 Resp 16 01/15/18 22:06 BP 116/74 01/15/18 22:06 Pulse Ox 99 01/15/18 22:06 - Medical History PMH: Anxiety, Asthma, Back Problems, Bipolar Disorder, Depression, Gastritis, HTN, Schizophrenia, Chronic Pain (Back Pain) Denies: Chronic Kidney Disease Surgical History: Hernia Repair, Tonsillectomy - [facility] Procedures DETOXIFICATION SERVICES FOR SUBSTANCE ABUSE TREATMENT (12/26/15) Family History: States: Unknown Family Hx - Social History Hx Tobacco Use: No Hx Alcohol Use: Yes Hx Substance Use: No - Immunization History Hx Tetanus Toxoid Vaccination: No Hx Influenza Vaccination: No Hx Pneumococcal Vaccination: No Review Of Systems Review Of Systems: ROS cannot be obtained secondary to pt's inabilty to answer questions. Constitutional: Negative for: Fever Physical Exam - Physical Exam Appears: Well, No Acute Distress Skin: Normal Color, Warm, Dry Head: Atraumatic, Normacephalic Eye(s): bilateral: Normal Inspection Ear(s): Bilateral: Normal Oral Mucosa: Moist Chest: Symmetrical Cardiovascular: Rhythm Regular, No Murmur Respiratory: Normal Breath Sounds, No Rales, No Rhonchi, No Wheezing Gastrointestinal/Abdominal: Soft, No Tenderness, No Distention Extremity: Normal ROM Extremity: Bilateral: Normal Color And Temperature, Normal ROM Neurological/Psych: Other (Alert. No focal deficits ) ED Course And Treatment O2 Sat by Pulse Oximetry: 99 (RA) Pulse Ox Interpretation: Normal Disposition Counseled Patient/Family Regarding: Diagnosis - Disposition Referrals: at [facility] [Outside] Disposition: HOME/ ROUTINE Disposition Time: 06:10 Condition: STABLE Instructions: Alcohol Abuse and Alcoholism (DC) Forms: [employer] (Spanish) - POA Present On Arrival: None - Clinical Impression Clinical Impression: Alcohol abuse - PA / [employer] / Resident Statement MD/DO has reviewed & agrees with the documentation as recorded. - Scribe Statement The provider has reviewed the documentation as recorded by the Scribe (Dominique Evans) Provider Attestation: All medical record entries made by the Scribe were at my direction and personally dictated by me. I have reviewed the chart and agree that the record accurately reflects my personal performance of the history, physical exam, medical decision making, and the department course for this patient. I have also personally directed, reviewed, and agree with the discharge instructions and disposition.
== END 2018-01-16 06:20 | disposition home or self-care (01) ==
LOC: C.ER 21:59
DX: F10.10 Alcohol abuse, uncomplicated (principal)

== ENCOUNTER 2018-01-17 14:51 | Emergency (ER) | payer MEDICARE ==
[2018-01-17 15:14] VITALS: BMI 28.8
[2018-01-17 15:21] VITALS: O2SAT 100
--- NOTE | 2018-01-17 17:56 | C.PDOC ---
History Of Present Illness 72 y/o male brought to ER by ambulance for pubic intoxication. Patient denies having fever, chills, and other complaint at this time. Of note, patient is well known to [facility] ER because he has visited multiple times for ETOH intoxication. Time Seen by Provider: 01/17/18 15:48 Chief Complaint (Nursing): Substance Abuse History Per: Patient History/Exam Limitations: no limitations Past Medical History Reviewed: Historical Data, Nursing Documentation, Vital Signs Vital Signs: Last Vital Signs Temp 98.4 F 01/17/18 15:19 Pulse 93 H 01/17/18 15:19 Resp 20 01/17/18 15:19 BP 92/52 L 01/17/18 15:19 Pulse Ox 100 01/17/18 15:19 - Medical History PMH: Anxiety, Asthma, Back Problems, Bipolar Disorder, Depression, Gastritis, HTN, Schizophrenia, Chronic Pain (Back Pain) Denies: Chronic Kidney Disease Surgical History: Hernia Repair, Tonsillectomy - [facility] Procedures DETOXIFICATION SERVICES FOR SUBSTANCE ABUSE TREATMENT (12/26/15) Family History: States: No Known Family Hx - Social History Hx Tobacco Use: No Hx Alcohol Use: Yes Hx Substance Use: No - Immunization History Hx Tetanus Toxoid Vaccination: No Hx Influenza Vaccination: No Hx Pneumococcal Vaccination: No Review Of Systems Except As Marked, All Systems Reviewed And Found Negative. Constitutional: Negative for: Fever, Chills Physical Exam - Physical Exam Appears: No Acute Distress, Other (foul-smelling, disheveled) Skin: Normal Color, Warm, Dry Head: Atraumatic, Normacephalic Eye(s): bilateral: Normal Inspection Nose: Normal Oral Mucosa: Moist, Other (ETOH on breath) Neck: Supple Chest: Symmetrical Cardiovascular: Rhythm Regular Respiratory: Normal Breath Sounds, No Rales, No Rhonchi, No Wheezing Gastrointestinal/Abdominal: Normal Exam, Soft, No Tenderness, No Guarding, No Rebound Neurological/Psych: Oriented x3, Normal Speech ED Course And Treatment O2 Sat by Pulse Oximetry: 100 (RA) Pulse Ox Interpretation: Normal Reevaluation Time: 18:35 (easily arousable, no acute injuries noted on re-evl) Medical Decision Making Medical Decision Making: Plan: Glucose, POC typical alcohol abuse Disposition Doctor Will See Patient In The: Office Counseled Patient/Family Regarding: Studies Performed, Diagnosis - Disposition Disposition: HOME/ ROUTINE Disposition Time: 18:36 Condition: GOOD Forms: [facility] (Welsh) - Clinical Impression Clinical Impression: Alcohol abuse - Scribe Statement The provider has reviewed the documentation as recorded by the Scribe German Brock Provider Attestation: All medical record entries made by the Scribe were at my direction and personally dictated by me. I have reviewed the chart and agree that the record accurately reflects my personal performance of the history, physical exam, medical decision making, and the department course for this patient. I have also personally directed, reviewed, and agree with the discharge instructions and disposition.
[2018-01-17 19:04] VITALS: BP 108/58; PULSE 88; RESP 18; TEMP 98.5
== END 2018-01-17 19:04 | disposition home or self-care (01) ==
LOC: C.ER 14:51
DX: F10.129 Alcohol abuse with intoxication, unspecified (principal); F20.9 Schizophrenia, unspecified; I10 Essential (primary) hypertension

== ENCOUNTER 2018-01-20 20:26 | Emergency (ER) | payer MEDICARE ==
[2018-01-20 20:27] VITALS: BMI 28.8
--- NOTE | 2018-01-20 21:37 | C.PDOC ---
History Of Present Illness 72 year old male brought in by EMS for acute ETOH intoxication. Patient was seen here on 01/17/18 for the same. Denies any complaints at this time. Time Seen by Provider: 01/20/18 21:34 Chief Complaint (Nursing): Substance Abuse History Per: Patient, EMS History/Exam Limitations: no limitations Onset/Duration Of Symptoms: Hrs Current Symptoms Are (Timing): Still Present Suicide/Self Injury Attempted (Context): None Modifying Factor(s): Alcohol Associated Symptoms: denies: Depression, Suicidal Thoughts Involuntary Hold By: None Recent travel outside of the [place]: No Past Medical History Reviewed: Historical Data, Nursing Documentation, Vital Signs Vital Signs: Last Vital Signs Temp 98.9 F 01/20/18 20:34 Pulse 92 H 01/20/18 20:34 Resp 16 01/20/18 20:34 BP 114/71 01/20/18 20:34 Pulse Ox 97 01/20/18 20:34 - Medical History PMH: Anxiety, Asthma, Back Problems, Bipolar Disorder, Depression, Gastritis, HTN, Schizophrenia, Chronic Pain (Back Pain) Denies: Chronic Kidney Disease Surgical History: Hernia Repair, [facility]il[facility] Procedures DETOXIFICATION SERVICES FOR SUBSTANCE ABUSE TREATMENT (12/26/15) Family History: States: Unknown Family Hx - Social History Hx Tobacco Use: No Hx Alcohol Use: Yes Hx Substance Use: No - Immunization History Hx Tetanus Toxoid Vaccination: No Hx Influenza Vaccination: No Hx Pneumococcal Vaccination: No Review Of Systems Constitutional: Negative for: Fever, Chills Cardiovascular: Negative for: Chest Pain, Palpitations Respiratory: Negative for: Cough, Shortness of Breath Gastrointestinal: Negative for: Nausea, Vomiting Neurological: Negative for: Weakness, Numbness Physical Exam - Physical Exam Appears: Non-toxic, Other (No sign of injury) Skin: Normal Color, Warm, Dry Head: Atraumatic, Normacephalic Eye(s): bilateral: Normal Inspection Oral Mucosa: Moist Chest: Symmetrical, No Tenderness Cardiovascular: Rhythm Regular Respiratory: Normal Breath Sounds, No Rales, No Rhonchi, No Wheezing Gastrointestinal/Abdominal: Soft, No Tenderness Extremity: Normal ROM (x4) Neurological/Psych: Oriented x3, Normal Speech Gait: Steady ED Course And Treatment O2 Sat by Pulse Oximetry: 97 (Room air) Pulse Ox Interpretation: Normal Medical Decision Making Medical Decision Making: typical alcohol abuse, malingering no acute injuries easily arousable no injuries on repeat eval Disposition Doctor Will See Patient In The: Office Counseled Patient/Family Regarding: Studies Performed, Diagnosis - Disposition Referrals: Alcoholics Anonymous [Outside] [facility] [employer] [Outside] [facility] [place] [Outside] [facility] [Outside] [place] [employer] [Outside] Disposition: HOME/ ROUTINE Disposition Time: 21:36 Condition: GOOD Additional Instructions: seek nightly half-way placement seek AA Seek outpatient psych services for your psych issues. Instructions: Alcohol Abuse and Alcoholism (DC) Forms: [employer] (Slovak) - Clinical Impression Clinical Impression: Homelessness, Alcohol abuse - Scribe Statement The provider has reviewed the documentation as recorded by the Scribjackelyn Huang All medical record entries made by the Scribe were at my direction and personally dictated by me. I have reviewed the chart and agree that the record accurately reflects my personal performance of the history, physical exam, medical decision making, and the department course for this patient. I have also personally directed, reviewed, and agree with the discharge instructions and disposition.
[2018-01-21 02:21] VITALS: BP 127/75; PULSE 87; RESP 16; TEMP 98.2; O2SAT 98
== END 2018-01-21 02:21 | disposition home or self-care (01) ==
LOC: C.ER 20:26
DX: F10.129 Alcohol abuse with intoxication, unspecified (principal); Z59.0 Homelessness; I10 Essential (primary) hypertension; F20.9 Schizophrenia, unspecified

== ENCOUNTER 2018-01-22 17:41 | Emergency (ER) | payer MEDICARE ==
[2018-01-22 17:41] VITALS: BMI 28.8
[2018-01-22 17:57] VITALS: TEMP 98.1
--- NOTE | 2018-01-22 18:11 | C.PDOC ---
History Of Present Illness 72 y/o male brought to ER by ambulance for evaluation after he was found sleeping in public today. Patient states that he did not drink ETOH today. Patient denies having suicidal ideation, homicidal ideation, and active physical complaints. Of note, patient is well known this ER because he has visited multiple times for ETOH intoxication. Time Seen by Provider: 01/22/18 18:08 Chief Complaint (Nursing): Substance Abuse History Per: Patient History/Exam Limitations: no limitations Past Medical History Reviewed: Historical Data, Nursing Documentation, Vital Signs Vital Signs: Last Vital Signs Temp 98.1 F 01/22/18 17:55 Pulse 80 01/22/18 17:55 Resp 18 01/22/18 17:55 BP 120/81 01/22/18 17:55 Pulse Ox 96 01/22/18 17:55 - Medical History PMH: Anxiety, Asthma, Back Problems, Bipolar Disorder, Depression, Gastritis, HTN, Schizophrenia, Chronic Pain (Back Pain) Denies: Chronic Kidney Disease Surgical History: Hernia Repair, Tonsillectomy - [facility] Procedures DETOXIFICATION SERVICES FOR SUBSTANCE ABUSE TREATMENT (12/26/15) Family History: States: No Known Family Hx - Social History Hx Tobacco Use: No Hx Alcohol Use: Yes Hx Substance Use: No - Immunization History Hx Tetanus Toxoid Vaccination: No Hx Influenza Vaccination: No Hx Pneumococcal Vaccination: No Review Of Systems Except As Marked, All Systems Reviewed And Found Negative. Constitutional: Negative for: Fever, Chills Physical Exam - Physical Exam Appears: Other (disheveled, foul- smelling,) Skin: Normal Color, Warm, Dry Head: Atraumatic, Normacephalic Eye(s): bilateral: Normal Inspection Nose: Normal Oral Mucosa: Moist, Other (no ETOH on breath) Neck: Supple Chest: Symmetrical Cardiovascular: Rhythm Regular Respiratory: Normal Breath Sounds, No Rales, No Rhonchi, No Wheezing Gastrointestinal/Abdominal: Normal Exam, Soft, No Tenderness, No Guarding, No Rebound Neurological/Psych: Oriented x3, Normal Speech ED Course And Treatment O2 Sat by Pulse Oximetry: 96 (RA) Pulse Ox Interpretation: Normal Medical Decision Making Medical Decision Making: sleeping in public malingering no etoh abuse today (surprisingly) no acute injuries no new findings (well known) ok for d/c. Disposition Doctor Will See Patient In The: Office Counseled Patient/Family Regarding: Studies Performed, Diagnosis - Disposition Referrals: [facility] [Outside] [facility] [Outside] [facility] [Outside] [facility] [Outside] [facility] [Outside] Disposition: HOME/ ROUTINE Disposition Time: 18:10 Condition: GOOD Additional Instructions: seek nightly intermediate placement seek AA Seek outpatient psych services Forms: General Discharge Instructions, [facility] (Croatian) - Clinical Impression Clinical Impression: Homelessness, Malingering - Scribe Statement The provider has reviewed the documentation as recorded by the Omar Brock Provider Attestation: All medical record entries made by the Omar were at my direction and persona lly dictated by me. I have reviewed the chart and agree that the record accurately reflects my personal performance of the history, physical exam, medical decision making, and the department course for this patient. I have also personally directed, reviewed, and agree with the discharge instructions and disposition.
[2018-01-22 19:38] VITALS: BP 112/65; PULSE 65; RESP 14; O2SAT 97
== END 2018-01-22 19:37 | disposition home or self-care (01) ==
LOC: C.ER 17:41
DX: Z76.5 Malingerer [conscious simulation] (principal); Z59.0 Homelessness